=== PATIENT | female | born 1965 | race Caucasian/White ===

== ENCOUNTER → 2024-02-21 13:27 | Outpatient (BNVA) | payer OTHER, SELFPAY | PROVIDERS: PCP Internal Medicine Endocrinology, Diabetes & Metabolism; Visit Provider Physician Assistant ==

== ENCOUNTER 2024-03-08 10:07 | Outpatient (AMB) | payer OTHER, SELFPAY ==
--- NOTE | 2024-03-08 10:36 | A.SPINEOV_ITS ---
Intake Visit Reasons: neck pain/down to arm/does not feels her fingers Intake Note: Ms. 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 HPI: This 58-year-old female suffering from progressive hand dexterity loss, numbness of her hands, balance problems, leg spasms, neck pain and bilateral arm pain with the right side is more affected than the left side. I have seen this patient previously had my practice at [facility] in 2021 and recommended a two-level anterior diskectomy and fusion to decompress her spinal cord. She was unable to undergo surgery at that time due to social circumstances. She comes back with progressive symptoms as mentioned above. Her MRI shows further progression of the spinal cord compression with myelomalacia. Specifically, there is severe spinal cord compression at C3-C6 with myelomalacia at C4-C5. PMH: Hepatitis-C, passive disorder, controlled diabetes type 2 Social history: Nonsmoker Physical Exam: Pleasant female. Neurological exam displays signs of cervical myelopathy with bilateral Veena reflexes. Proximal leg weakness grade 4/5 and a positive Romberg. In addition there sensory deficits of bilateral hands and dexterity loss. Radiological Studies: The findings of MRI cervical spine done at [facility] were discussed in the history. Impression/Plan: This 58-year-old female is suffering from progressive cervical myelopathy due to severe spinal stenosis at C3-4, C4-5 and C5-C6 with mye lomalacia at C4-C5. The quality of the last MRI at [facility] is poor and affected by motion artifacts. Therefore I would like to repeat an MRI of the cervical spine to make a final determination how many levels need to be addressed to decompress the spinal cord. For now, it looks like she needs a 3 level anterior diskectomy and fusion. I will see the patient after the MRI is done. Thank you for allowing me to participate in your patients care. total time spent was 50 minutes in counseling ,coordination of plan, personal review of imaging, surgical decision making and subsequent plan Bravo Edwards MD, PhD Spine Fellowship Trained Neurosurgeon Director, [facility] (2) Cervical myelopathy with cervical radiculopathy: Code(s): G95.9 - Disease of spinal cord, unspecified; M54.12 - Radiculopathy, cervical region Category: Medical Plan: e Plan e Orders: Orders MR cervical spine wo con Today G95.9 - Disease of spinal cord, unspecified, M47.12 - Other spondylosis with myelopathy, cervical region, M54.12 - Radiculopathy, cervical region Medications: New lorazepam Take 1 tablet 1 hour prior to MRI. 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
== END 2024-03-08 11:03 | disposition home or self-care (01) ==
PROVIDERS: PCP Internal Medicine Endocrinology, Diabetes & Metabolism; Visit Provider Neurological Surgery
DX: M47.12 Other spondylosis with myelopathy, cervical region (principal); G95.9 Disease of spinal cord, unspecified; M54.12 Radiculopathy, cervical region
CPT/HCPCS: 99204

== ENCOUNTER → 2024-03-08 10:07 | Outpatient (BNVA) | payer OTHER, SELFPAY | PROVIDERS: PCP Internal Medicine Endocrinology, Diabetes & Metabolism; Visit Provider Neurological Surgery | DX: M47.12 Other spondylosis with myelopathy, cervical region (principal); G95.9 Disease of spinal cord, unspecified; M54.12 Radiculopathy, cervical region | CPT/HCPCS: 99202 ==

== ENCOUNTER → 2024-04-18 13:16 | Outpatient (BNV) | payer OTHER, SELFPAY | PROVIDERS: PCP Internal Medicine; Visit Provider Internal Medicine | DX: R00.1 Bradycardia, unspecified (principal); R94.31 Abnormal electrocardiogram [ECG] [EKG] | CPT/HCPCS: 93010 ==

== ENCOUNTER → 2024-04-22 05:49 | Day surgery (SDC) | payer OTHER, SELFPAY ==
--- NOTE | 2024-04-18 | ECG_ITS ---
Test Reason : pre op Blood Pressure : / mmHG Vent. Rate : 046 BPM Atrial Rate : 046 BPM P-R Int : 204 ms QRS Dur : 096 ms QT Int : 442 ms P-R-T Axes : 071 053 067 degrees QTc Int : 386 ms Sinus bradycardia Possible Left atrial enlargement T wave abnormality, consider anterior ischemia Abnormal ECG No previous ECGs available Referred By: Darya Lee Electronically Signed By:ANH REAVES
--- OUTSIDE RECORDS SUMMARY | 2024-04-18 09:55 | XMS_ITS ---
Author Organization [facility] Address [address] [place] [address] Care Team Providers Care Loop Cutter Name Role Phone Cheko Chavez MD Primary Care Provider Julienne Cade Unavailable [phone] Allergies Allergen (clinical drug ingredient) Drug/Non Drug Allergy documented on EMR Reaction Allergy Type Onset Date Status Spinal Injection (uncoded) Unknown Allergy Active amoxicillin / clavulanate Augmentin vomiting Drug Allergy Active Vicodin vomiting Drug Allergy Active cefaclor Cefaclor sick Drug Allergy Active codeine Codeine itchy Drug Allergy Active REASON FOR VISIT At Risk Footcare, Painful Nail(s) aggrevated by shoes and causing difficulty standing/walking. Medications Medication SIG (Take, Route, Frequency, Duration) Notes Start Date End Date Status Glycopyrrolate 2 MG as directed Orally Active Extra Depth Orthopedic Shoes (1 Pair) with Customized Heat Molded Multidensity Innersoles (3 Pair) as directed Dx: NIDDM/Polyneuropathy (E11.42), Hammertoe Foot Deformity (M20.41,M20.42), Preulcerative Skin Lesion(s) (L85.1 04/22/2022 Active Lyrica 150 MG 1 capsule Orally Onc e a day Active Suboxone 8.2mg 2 tablets 1x day Active traZODone HCl 100 MG 1 tablet at bedtime Orally Once a day for 30 day(s) Active Ativan 1 MG 1 tablet at bedtime as needed Orally Once a day Active Effexor 350mg Active Famotidine 20 MG 1 tablet at bedtime as needed Orally Once a day for 30 day(s) Active Ammonium Lactate 12 % 1 application to affected area Externally to feet Twice a day for 30 days Active Social History Tobacco Use: Social History Observation Description Date Details (start date - stop date) Current Smoker 05/01/1991 - NA Tobacco Use/Smoking Question Answer Notes Are you a: current smoker When did you start smoking? 05/01/1991 Additional Findings: Tobacco User Light cigarett e smoker ((1-9 cigs/day) Alcohol Screen Question Answer Notes Did you have a drink containing alcohol in the p ast year? No Points 0 Interpretation Negative Tobacco use other than smoking: Question Answer Notes Are you an other tobacco user? No Vital Signs Height 5ft3in in 11/21/2023 Weight 167 lbs 11/21/2023 BMI 29.58 kg/m2 11/21/2023 Blood pressure systolic 120 mm Hg 11/21/19 24 Blood pressure diastolic 80 mm Hg 024 Encounters Encounter Location Date Provider Diagnosis [facility] [address] [id number] 11/21/2023 Julienne Pop Tinea unguium B35.1 and Type 2 diabetes mellitus with polyneuropathy E11.42 Assessments Encounter Date Diagnosis (ICD Code) Assessment Notes Treatment Notes Treatment Clinical Notes Section Notes 11/21/2023 Tinea unguium (ICD-10 - B35.1) 11/21/2023 Type 2 diabetes mellitus with polyneuropathy (ICD-10 - E11.42) Plan Of Treatment Next Appt Details Follow Up: 3 Months, Reason: Provider Name:Julienne rock, 05/29/2024 11:15:00 AM, [address] [place] [address], [id number], Procedure Notes * Category Sub-Category Detail Notes Debride Nail 6-10 Nail debridement Nail debridem ent performed extensively to reduce/remove overall nail length and girth, subungual debris, and necrotic tissue, by manual and electrical means with use of a nail nipper and/or dremel, to more viable healthy nail plate or bed tissue 6-10. Silver nitrate used for any petechial bleeding as necessary. Patient chooses, no pharmaceutical tx (01012) Keratoma Treatment Parring or Cutting o f Benign Hyperkeratotic Lesion(s) 32941 ( More than 4 Lesions ) - The Benign hyperkeratotic lesions, as described above were pared, and/or cut utilizing a sterile 15 blade, tissue nippers, and/or dremel Progress Notes * Shawn TROTTEROB:1964 (58 yo F)Acc No.[id number]:11/21/2023 Progress Note Patient:?Perla Trotter Provider:?Julienne Pop DPM :1965???Age:58 Y???Sex:Female D ate:11/21/2023 Address:[address] [place] [address], [place] Pcp:Cheko Chavez MD Subjective: * Chief Complaints: * ???At Risk FootcarePainful N ail(s) aggrevated by shoes and causing difficulty standing/walking. * HPI: ???At Risk footcare:?Pt States Last PCP Visit:?Date?11/20/2023 * ROS:?General/Constitutional:?Nausea?denies, denies, denies.?Vomiting?denies, denies, denies.?Hunger Thirst?denies, denies, denies.?Loss appetite?denies, denies, denies.?Chills?denies, denies, denies.?Fatigue?denies, denies, denies.?Fever?denies, denies, denies.?Night Sweats?denies, denies, denies.?Unexplained weight loss?denies, denies, denies.?Unexplained weight gain?denies, denies, denies.?HEENTM:?Dentures?admits, admits, admits.?Dizziness?admits, admits, admits.?Glasses/contacts?admits, admits, admits.?Retinopathy?denies, denies, denies.?Blurred/double vision?denies, denies, denies.?TMJ?denies, denies, denies.?Discharge/drainage?denies, denies, denies.?Implants?denies, denies, denies.?Sore throat?denies, denies, denies.?Dental implants?admits, admits, admits.?Hard of hearing ?denies, denies, denies.?Difficulty chewing/swallowing/speaking denies, denies, denies.?Nose bleeds?denies, denies, denies.?Sore mouth?denies, denies, denies.?Respiratory:?On Oxygen?denies, denies, denies.?Pneumonia/pleurisy?denies, denies, denies.?Bronchitis?denies, denies, denies.?Emphysema?denies, denies, denies.?Coughing?denies, denies, denies.?Cough blood?denies, denies, denies.?Shortness of breath?denies, denies, denies.?Wheezing?denies, denies, denies.?Cardiovascular:?Pacemaker?denies, denies, denies.?MVP?denies, denies, denies.?WPW?denies, denies, denies.?CHF?denies, denies, denies.?Heart attack?denies, denies, denies.?Septal defect?denies, denies, denies.?Rapid beat denies, denies, denies.?Chest pain ?denies, denies, denies.?Atrial Fib.?denies, denies, denies.?Murmur/Palpitations?denies, denies, denies.?Gastrointestinal:?Hemorrhoids?denies, denies, denies.?Stomach/Abdominal pain?denies, denies, denies.?Dark blood stool?denies, denies, denies.?Irritable bowel ?denies, denies, denies.?Constipation?denies, denies, denies.?Diarrhea?denies, denies, denies.?Hematology:?Swelling?denies, denies, denies.?Clots?denies, denies, denies.?Varicose Veins?denies, denies, denies.?Bruising?admits, admits, admits.?Bleeding problem?denies, denies, denies.?Genitourinary:?Blood urine?denies, denies, denies.?Frequent/Painfu/urination/bladder control?denies, denies, denies.?Kidney stones?denies, denies, denies.?Infection (UTI)?denies, denies, denies.?Nephropathy?denies, denies, denies. sex trans dis (STD)?denies, denies, denies.?Prostate?denies, denies, denies.?Musculoskeletal:?Hammertoes?denies, denies, denies.?Bunions?denies, denies, denies.?Back Pain?admits, admits, admits.?Muscle Cramps/ Resting?admits, admits, admits.?Muscle cramps / walking?denies, denies, denies.?Generalized aches and pains?admits, admits, admits.?Weakness?denies, denies, denies.?Integ.:?Galvez?denies, denies, denies.?Scars?admits, admits, admits.?Corns/calluses?admits, admits, admits.?Ingrown nails?denies, denies, denies.?Painful nails?denies, denies, denies.?Open Sores?denies, denies, denies.?Rashes?denies, denies, denies.?Neurologic:?Difficulty sleeping?admits, admits, admits.?Brain disorder?denies, denies, denies.?Numbness?admits, admits, admits.?Balance trouble?admits, admits, admits.?Confusion?denies, denies, denies.?Fainting/blackouts?denies, denies, denies.?Tingling?admits, admits, admits.?Tremors?denies, denies, denies.? * Medical History:? * Surgical History:?back surge ry x4 section 09/11/1991mastoidectomy ear tubes Dental Implant 05/2021 * Hospitalization/Major Diagno stic Procedure:?Denies Past Hospitalization * Family History:?Mother: dece ased, kidney/liver disease, diagnosed with Family history of arthritis, Diabetic - NIDDM, Unspecified essential hypertension, Other malignant neoplasm of unspecified site.?Father: .? * Social History:?Tobacco Use:?Tobacco Use/Smoking?Are you a:?current smoker ?When did you start smoking??05/01/1991 ?Additional Findings: Tobacco User?Light cigarette smoker ((1-9 cigs/day) ?Tobacco use other than smoking?Are you an other tobacco user??No ???Drugs/Alcohol:?Drugs?Have you used drugs other than those for medical reasons in the past 12 months??Yes ?Marijuana??Yes Moderately ?Alcohol Screen?Did you have a drink containing alcohol in the past year??No ?Points?0 ?Interpretation?Negative ???Miscellaneous:?Caffeine: yes, 4 cups per day. ?Children: yes, 2. ?no Exercise. ?Marital status: . ?Occupation: Disability. * Medications:?TakingAmmonium Lactate 12 % Cream 1 application to affected area Externally to feet Twice a dayAtivan 1 MG Tablet 1 tablet at bedtime as needed Orally Once a dayEffexor , Notes: 350mgFamotidine 20 MG Tablet 1 tablet at bedtime as needed Orally Once a dayGlycopyrrolate 2 MG Tablet as directed Orally Lyrica 150 MG Capsule 1 capsule Orally Once a daySuboxone , Notes: 8.2mg 2 tablets 1x daytraZODone HCl 100 MG Tablet 1 tablet at bedtime Orally Once a dayExtra Depth Orthopedic Shoes (1 Pair) with Customized Heat Molded Multidensity Innersoles (3 Pair) as directed Dx: NIDDM/Polyneuropathy (E11.42), Hammertoe Foot Deformity (M20.41,M20.42), Preulcerative Skin Lesion(s) (L85.1Medication List reviewed and reconciled with the patientTaking Ammonium Lactate 12 % Cream 1 application to affected area Externally to feet Twice a dayTaking Ativan 1 MG Tablet 1 tablet at bedtime as needed Orally Once a dayTaking Effexor , Notes: 350mgTaking Famotidine 20 MG Tablet 1 tablet at bedtime as needed Orally Once a dayTaking Glycopyrrolate 2 MG Tablet as directed Orally Taking Lyrica 150 MG Capsule 1 capsule Orally Once a dayTaking Suboxone , Notes: 8.2mg 2 tablets 1x dayTaking traZODone HCl 100 MG Tablet 1 tablet at bedtime Orally Once a dayTaking Extra Depth Orthopedic Shoes (1 Pair) with Customized Heat Molded Multidensity Innersoles (3 Pair) as directed Dx: NIDDM/Polyneuropathy (E11.42), Hammertoe Foot Deformity (M20.41,M20.42), Preulcerative Skin Lesion(s) (L85.1Medication List reviewed and reconciled with the patient * Allergies:?Cefaclor: sickCod eine: itchyAugmentin: vomitingVicodin: vomitingSpinal Injectionyes[Allergies Verified] Objective: * Vitals:?Ht: 5ft3in, Wt:167, BMI:29.58, Shoe size: 7.5, BP:120/80 mm Hg, BS: not taken, Ht-cm: 160.02 cm, Wt-k.75 kg. * ???Past Orders: ???Lab:HEMOGLOBIN A1C (GLYCO HEMOGLOBIN) (Order Date - 11/13/2023) (Collection Date - 11/13/2023) ? Value Reference Range ?HEMOGLOBIN A1C (HH) 6.1 * Examination: ???Ophthalmology Referral: ?DIABETES EYE EXAM?Neurological: ?SENSORY:?Neurological exam demonstrates, reduced light touch sensation, reduced sharp/dull discrimination , reduced vibration sensation, in a stocking fashion, B/L, 5.07 monofilament test performed at plantar aspects of 5 varied sites per foot shows sensation, reduced, B/L.?Nails: ?NAILS are:?Elongated, overgrown, dystrophic, lytic, greater than 3mm thick, discolored and friable with crumbly malodorous subungual debris with dull to no pain on palpation due to neuropathy, 1-5 B/L.?Dermatologic: ?SKIN FINDINGS:? Skin exam reveals Keratotic lesion(s) located at TA T1 T2 T5 SUB MTH (s), 1 B/L.? Assessment: * Assessment: 1.?Tinea unguium - B35.1?2.? Type 2 diabetes mellitus with polyneuropathy - E11.42 (Primary)? Plan: * Treatment: * Procedures:?Debride Nail 6-10:?Nail debridement?Nail debridement performed extensively to reduce/remove overall nail length and girth, subungual debris, and necrotic tissue, by manual and electrical means with use of a nail nipper and/or dremel, to more viable healthy nail plate or bed tissue 6-10. Silver nitrate used for any petechial bleeding as necessary. Patient chooses, no pharmaceutical tx (44327).?Keratoma Treatment:?Parring or Cutting of Benign Hyperkeratotic Lesion(s)?91758 ( More than 4 Lesions ) - The Benign hyperkeratotic lesions, as described above were pared, and/or cut utilizing a sterile 15 blade, tissue nippers, and/or dremel.? * Procedure Codes:?57060 DEBRI DE NAIL, 6 OR MORE, Modifiers: XS 90547 TRIM SKIN LESIONS, OVER 4, Modifiers: XS * Follow Up:?3 Months * Images: * Sign off status: Completed true * Provider:?Julienne Pop, DPM Date:? Generated for Lia sigala/Billy/eTransmitting on:?04/18/2024 09:54 AM EST History and Physical Notes * HPI (History of Present Illness) Category Sub-Category Detail Notes Category Not es At Risk footcare Pt States Last PCP Visit: Date: 4 Examination Category Sub-Category Detail Notes Category Not es Neurological SENSORY: Neurological exa m demonstrates, reduced light touch sensation, reduced sharp/dull discrimination , reduced vibration sensation, in a stocking fashion, B/L, 5.07 monofilament test performed at plantar aspects of 5 varied sites per foot shows sensation, reduced, B/L Dermatologic SKIN FINDINGS: Skin exam reveal s Keratotic lesion(s) located at TA T1 T2 T5 SUB MTH (s), 1 B/L Ophthalmology Referral DIABETES EYE EXAM Diabeti c Retinopathy Screening:: No Findings of Diabetic Eye Exam:: no retin opathy Nails NAILS are: Elongated, overg rown, dystrophic, lytic, greater than 3mm thick, discolored and friable with crumbly malodorous subungual debris with dull to no pain on palpation due to neuropathy, 1-5 B/L
--- OUTSIDE RECORDS SUMMARY | 2024-04-18 09:55 | XMS_ITS ---
[facility] Organization [facility] Address [address] [place] [address] Care Team Providers Care Orthodontic Band Maker Name Role Phone Cheko Chavez MD Primary Care Provider Julienne Cade Unavailable [phone] Allergies Allergen (clinical drug ingredient) Drug/Non Drug Allergy documented on EMR Reaction Allergy Type Onset Date Status Spinal Injection (uncoded) Unknown Allergy Active amoxicillin / clavulanate Augmentin vomiting Drug Allergy Active Vicodin vomiting Drug Allergy Active cefaclor Cefaclor sick Drug Allergy Active codeine Codeine itchy Drug Allergy Active REASON FOR VISIT At Risk Footcare, Painful Nail(s) aggrevated by shoes and causing difficulty standing/walking., ToeIrritation Medications Medication SIG (Take, Route, Frequency, Duration) Notes Start Date End Date Status Lyrica 150 MG 1 capsule Orally Once a day Active Extra Depth Orthopedic Shoes (1 Pair) with Customized Heat Molded Multidensity Innersoles (3 Pair) as directed Dx: NIDDM/Polyneuropathy (E11.42), Hammertoe Foot Deformity (M20.41,M20.42), Preulcerative Skin Lesion(s) (L85.1 03/06/2024 Active Extra Depth Orthopedic Shoes (1 Pair) with Customized Heat Molded Multidensity Innersoles (3 Pair) as directed Dx: NIDDM/Polyneuropathy (E11.42), Hammertoe Foot Deformity (M20.41,M20.42), Preulcerative Skin Lesion(s) (L85.1 04/22/2022 Active Suboxone 8.2mg 2 tablets 1x day Active traZODone HCl 100 MG 1 tablet at bedtime Orally Once a day for 30 day(s) Active Ativan 1 MG 1 tablet at bedtime as needed Orally Once a day Not-Taking Effexor 350mg Active Ammonium Lactate 12 % 1 application to affected area Externally to feet Twice a day for 30 days Active Famotidine 20 MG 1 tablet at bedtime as needed Orally Once a day for 30 day(s) Active Glycopyrrolate 2 MG as directed Orally Active Social History Tobacco Use: Social History Observation Description Date Details (start date - stop date) Current Smoker 05/01/1991 - NA Tobacco Use/Smoking Question Answer Notes Are you a: current smoker When did you start smoking? 05/01/1991 Additional Findings: Tobacco User Light cigarett e smoker ((1-9 cigs/day) Tobacco use other than smoking: Question Answer Notes Are you an other tobacco user? No Problems Problem Type SNOMED Code ICD Code Onset Dates Problem Status W/U Status Risk Notes Problem Acquired hammer toe of right foot (7352853352657 105) Other hammer toe(s) (acquired), right foot (M20.41) Active confirmed Problem Acquired hammer toe of left foot (1073003277069 103) Other hammer toe(s) (acquired), left foot (M20.42) Active confirmed Vital Signs Height 5ft3in in 03/06/2024 Weight 161 lbs 03/06/2024 BMI 28.52 kg/m2 03/06/2024 Encounters Encounter Location Date Provider Diagnosis [facility] [address] [address] 03/06/2024 Julienne Pop Type 2 diabetes mellitus with polyneuropathy E11.42 ; Other hammer toe(s) (acquired), right foot M20.41 ; Tinea unguium B35.1 and Other hammer toe(s) (acquired), left foot M20.42 Assessments Encounter Date Diagnosis (ICD Code) Assessment Notes Treatment Notes Treatment Clinical Notes Section Notes 03/06/2024 Type 2 diabetes mellitus with polyneuropathy (ICD-10 - E11.42) 03/06/2024 Other hammer toe(s) (acquired), right foot (ICD-10 - M20.41) Patient Educated with: DIABETIC FOOT CARE INSTRUCTIONS. pdf (DIABETIC FOOT CARE INSTRUCTIONS. pdf) 03/06/2024 Tinea unguium (ICD-10 - B35.1) 03/06/2024 Other hammer toe(s) (acquired), left foot (ICD-10 - M20.42) Plan Of Treatment Medication Medication Name Sig Start Date Stop Date Notes Extra Depth Orthopedic Shoes (1 Pair) with Customized Heat Molded Multidensity Innersoles (3 Pair) as directed Dx: NIDDM/Polyneuropathy (E11.42), Hammertoe Foot Deformity (M20.41,M20.42), Preulcerative Skin Lesion(s) (L85.1 03/06/2024 Treatment Notes Assessment Notes Other hammer toe(s) (acquired), right fo ot Patient Educated with: DIABETIC FOOT CARE INSTRUCTIONS.pdf (DIABETIC FOOT CARE INSTRUCTIONS.pdf) Next Appt Details Follow Up: 3 Months, Reason: Provider Name:Julienne rock, 05/29/2024 11:15:00 AM, [address] [place] [address], [phone], Procedure Notes * Category Sub-Category Detail Notes [...] as necessary. Patient chooses, no pharmaceutical tx (54405) Keratoma Treatment Parring or Cutting o f Benign Hyperkeratotic Lesion(s) 26965 ( More than 4 Lesions ) - The Benign hyperkeratotic lesions, as described above were pared, and/or cut utilizing a sterile 15 blade, tissue nippers, and/or dremel Progress Notes * SERGORehanahyDOB:1964 (58 yo F)Acc No.[id number]:03/06/2024 Progress Note Patient:?Perla Dixon Provider:?Julienne Pop DPM :1965???Age:58 Y???Sex:Female D ate:03/06/2024 Address:[address] [place] [address], [id number] Pcp:Cheko Chavez MD Subjective: * Chief Complaints: * ???At Risk FootcarePainful N ail(s) aggrevated by shoes and causing difficulty standing/walking.Toe Irritation * HPI: ???At Risk footcare:?Pt States Last PCP Visit:?Date?11/20/2023 ???Toe pain:?Location:?B/L feet.?Duration:?several years.?Course:?worse.?Aggravated by:?shoes, any pressure.?Treatments:?change in shoes.? * ROS:?General/Constitutional:?Nausea?denies.?Vomiting?denies.?Hunger Thirst?denies.?Loss appetite?denies.?Chills?denies.?Fatigue?denies.?Fever?denies.?Night Sweats?denies.?Unexplained weight loss?denies.?Unexplained weight gain?denies.?HEENTM:?Dentures?admits.?Dizziness?admits.?Glasses/contacts?admits.?Retinopathy?den ies.?Blurred/double vision?denies.?TMJ?denies.?Discharge/drainage?denies.?Implants?denies.?Sore throat?denies.?Dental implants?admits.?Hard of hearing ?denies.?Difficulty chewing/swallowing/speaking?denies.?Nose bleeds?denies.?Sore mouth?denies.?Respiratory:?On O xygen?denies.?Pneumonia/pleurisy?denies.?Bronchitis?denies.?Emphysema?denies.?Co ughing?denies.?Cough blood?denies.?Shortness of breath?denies.?Wheezing?denies.?Cardiovascular:?Pacemaker?denies.?MVP?denies.?WPW?denies.?CHF?denies.?Heart attack?denies.?Septal defect?denies.?Rapid beat?denies.?Chest pain ?denies.?Atrial Fib.?denies.?Murmur/Palpitations?denies.?Gastrointestinal:?Hemorrhoids?denies.?Stomach/Abdominal pain?denies.?Dark blood stool?denies.?Irritable bowel ?denies.?Constipation?denies.?Diarrhea?denies.?Hematology:?Swelling?denies.?Clots?denies.?Varicose Veins?denies.?Bruising?admits.?Bleeding problem?denies.?Genitourinary:?Blood urine?denies.?Frequent/Painfu/urination/bladder control?denies.?Kidney stones?denies.?Infection (UTI)?denies.?Nephropathy?denies.?sex trans dis (STD)?denies.?Prostate?denies.?Musculoskeletal:?Hammertoes?denies.?Bunions?denies.?Back Pain?admits.?Muscle Cramps/ Resting?admits.?Muscle cramps / walking?denies.?Generalized aches and pains?admits.?Weakness?denies.?Integ.:?Galvez?denies.?Scars?admits.?Corns/calluses?admits.?Ingrown nails?denies.?Painful nails?denies.?Open Sores?denies.?Rashes?denies.?Neurologic:?Difficulty sleeping?admits.?Brain disorder?denies.?Numbness?admits.?Balance t rouble?admits.?Confusion?denies.?Fainting/blackouts?denies.?Tingling?admits.?Ned mors?denies.? * Medical History:? * Surgical History:?back surge [...] than smoking?Are you an other tobacco user??No ???Miscellaneous:?Caffeine: yes, 4 cups per day. ?Children: yes, 2. ?no Exercise. ?Marital status: . ?Occupation: Disability. * Medications:?TakingAmmonium Lactate 12 % Cream 1 application to affected area Externally to feet Twice a dayEffexor , Notes: 350mgFamotidine 20 MG [...] Hammertoe Foot Deformity (M20.41,M20.42), Preulcerative Skin Lesion(s) (L85.1Taking Ammonium Lactate 12 % Cream 1 application to affected area Externally to feet Twice a dayTaking Effexor , Notes: 350mgTaking Famotidine [...] Hammertoe Foot Deformity (M20.41,M20.42), Preulcerative Skin Lesion(s) (L85.1Not- Taking/PRNAtivan 1 MG Tablet 1 tablet at bedtime as needed Orally Once a dayMedication List reviewed and reconciled with the patientNot-Taking/PRN Ativan 1 MG Tablet 1 tablet at bedtime as needed Orally Once a dayMedication List reviewed and reconciled with the patient * Allergies:?Cefaclor: sickCod eine: itchyAugmentin: vomitingVicodin: vomitingSpinal Injectionyes[Allergies Verified] Objective: * Vitals:?Ht: 5ft3in, Wt:161, BMI:28.52, Shoe size: 7.5, BS: not taken, Ht-cm: 160.02 cm, Wt-k.03 kg. * ???Past Orders: ???Lab:HEMOGLOBIN A1C (GLYCO [...] T1 T2 T5 SUB MTH (s), 1 B/L.?Orthopedic: ?MUSCLE STRENGTH:?5/5 all groups in a symmetrical fashion, B/L.?DIGITAL DEFORMITIES:?Digital contracture, PIPJ, 2-5 B/L, incompl-reducible to push-up test, no over, nor underlapping,?there is?evidence of shoe producing skin irritation.?FOOTWEAR:?worn, non-supportive, shoe gear properties exacerbate patient's foot/toe deformity.?General Examination: ?GENERAL APPEARANCE:?Reveals a pleasant, alert, well nourished, well- developed, well hydrated individual, who demonstrates proper attention to hygiene/body habitus, and is in no acute distress, Pt serves as own historian for office visit today.?ORIENTED:?person, place, and time.?FOOT EXAM:?Footwear Evaluation?Vascular: ?DP PULSES(B):?3/4, B/L.?PT PULSES(B):?3/4, B/L.?CAPILLARY FILL TIME:?immediate, all digits, B/L.?TROPHIC CONDITION-TEXTURE/ELASTICITY/TURGOR/HAIR GROWTH(B):?normal, B/L.?TEMPERTURE GRADIENT(C):?normal, warm to cool, proximal to distal, B/L, B/L.? Assessment: * Assessment: 1.?Other hammer toe(s) (acqu ired), right foot - M20.41 (Primary), Chronic problem, Worse (4),Rx Management (4)?2.?Type 2 diabetes mellitus with polyneuropathy - E11.42?3.?Tinea unguium - B35.1?4.?Other hammer toe(s) (acquired), left foot - M20.42, Chronic problem, Worse (4),Rx Management (4)? Plan: * Treatment: * Procedures:?Debride Nail 6-10:?Nail debridement?Nail debridement performed extensively to reduce/remove overall nail length and girth, subungual debris, and necrotic tissue, by manual and electrical means with use of a nail nipper and/or dremel, to more viable healthy nail plate or bed tissue 6-10. Silver nitrate used for any petechial bleeding as necessary. Patient chooses, no pharmaceutical tx (00336).?Keratoma Treatment:?Parring or Cutting of Benign Hyperkeratotic Lesion(s)?61279 ( More than 4 Lesions ) - The Benign hyperkeratotic lesions, as described above were pared, and/or cut utilizing a sterile 15 blade, tissue nippers, and/or dremel.? * Procedure Codes:?88199 DEBRI DE NAIL, 6 OR MORE, Modifiers: XS 88964 TRIM SKIN LESIONS, OVER 4, Modifiers: XS * Preventive Medicine:? ??Counseling:?Discussion:?-14: Office or other outpatient visit for the evaluation and management of an established patient, which required a medically appropriate history and/or examination and MODERATE level of DECISION MAKING for: 1 OR MORE CHRONIC PROBLEM(S) THATS WORSENING, 2 STABLE CHRONIC PROBLEMS, A NEWLY DIAGNOSED PROBLEM WITH UNCERTAIN PROGNOSIS, AN ACUTE COMPLICATED INJURY WITH MULTIPLE TREATMENT OPTIONS, OR AN ACUTE PROBLEM WITH ACCOMPANYING SYSTEMIC SYMPTOMS, THAT POSE(S) A MODERATE RISK OF MORBIDITY. THIS CONDITION MAY ALSO INCLUDE RX DRUG MANAGEMENT, OR A DECISON FOR MINOR SURGERY. The visit on the day of the encounter encompassed interpreting the data and educating the patient as to the nature of their condition, treatment options available according to their individual PMH, meds, allergies, and overall health/living conditions, as well as any potential risks or complications that may occur from a failure to adhere to, and participate in, the recommended course of therapy. The discussion included a complete verbal, and/or written explanation of the examination results, any x-rays taken, the proposed diagnosis, and outline of the treatment plan. A schedule for future care needs was also explained. The patient verbalized an understanding of the instructions at this time and agreed to be an active participant in their treatment. If the patient should think of any questions or concerns after the visit, I have encouraged the patient to call the office.?Digital Surgery:?Digital surgery was discussed with the patient, We elected to try conservative treatment at the present time, due to the patients medical history and increased asssociated post-operative risks.?Digital Treatment:?HT- I explained to the patient the possible etiologies of Hammertoes, including genetics/foot type/shoegear/activity level/exercise routine and the risks/benefits of all the different treatment options for their pain including: No treatment at all, Rest, Ice, New/supportive/wider/deeper Shoegear, Digital Padding/Strapping/Taping/Bracing/Gel protective sleeves, Foot/Ankle AFO Bracing, Stretching exercises, Deep Tissue Massage, Arch support/shoe inserts with splay metatarsal padding, and Custom orthoses. I insisted that any digital devices be removed daily and not worn overnight for safety. The patient is to carefully examine the toes daily for any skin irritation while using any splinting or padding device. The advantages and disadvantages of each option were discussed and the patients questions re: shoegear, padding, custom vs prefabricated inserts, activity level, and consistency in home treatment regimens for optimal success were answered to their verbally confirmed satisfaction.?Shoe Gear Counseling:?SHOE Rx - The patient was counseled in great detail on their muscoloskeletal foot and toe deformities which coincided with the dermatological presentations visualized on exam. We discussed how their deformities put the integrity of their feet at risk for potential pedal complications which makes the accomidative diabetic shoes and cutomizable inserts medically necessary. We discussed the different shoe and insert treatment types and options, as well as the important advantages for adhering to regularly wearing these accomidative devices daily. The patient was made aware of the fact that a failure to abide by these recommedations may be deleterious to their foot health as they are able to prevent many pedal complications such as skin irritation, skin ulceration, infection, and even loss of toe/foot/leg/or life. Time was also spent with the patient dispensing and discussing proper diabetic footcare techniques including daily skin moisturization, daily foot inspection for any interruption in skin integrity including open lesions, or sign of infection such as redness/malodor/drainage/swelling. Also discussed and recommended were procedures regarding daily shoe inspection for the presence of internal foreign bodies as well as any visualized irregular shoe or insert wear. Patient questions re: shoes, inserts, and self foot inspections were answered to their satisfaction as the patient verbally confirmed a full understanding of the above information. A Rx for Extra Depth Orthopedic Shoes with 3 pair of custom heat-molded inserts was dispensed.? * Follow Up:?3 Months * Images: * Sign off status: Completed true * Provider:?Julienne Pop, DPKingston Date:?09/2023 Generated for Lia sigala/Billy/Kelsi on:?04/18/2024 09:54 AM EST History and Physical Notes * HPI (History of Present Illness) Category Sub-Category Detail Notes Category Not es Toe pain Location: B/L feet Duration: several years Course: worse Aggravated by: shoes, any pressure Treatments: change in shoes At Risk footcare Pt States Last PCP [...] T2 T5 SUB MTH (s), 1 B/L Orthopedic FOOTWEAR: worn, non-suppor tive, shoe gear properties exacerbate patient's foot/toe deformity DIGITAL DEFORMITIES: Digital contracture , PIPJ, 2-5 B/L, incompl-reducible to push-up test, no over, nor underlapping, there is evidence of shoe producing skin irritation MUSCLE STRENGTH: 5/5 all groups in a symmetrical fashion, B/L General Examination GENERAL APPEARANCE: Reveals a pleasant, alert, well nourished, well-developed, well hydrated individual, who demonstrates proper attention to hygiene/body habitus, and is in no acute distress, Pt serves as own historian for office visit today FOOT EXAM: Lower Extremity Neurological Exa m performed:: Yes ORIENTED: person, place, and t krista Footwear Evaluation Footwear Evaluation performe d:: Yes Ophthalmology Referral DIABETES EYE EXAM Procedure Perform ed:: Yes ?Date of Exam Performed: 05/01/2023 Findings of Diabetic Eye Exam:: no retin opathy Vascular DP PULSES (B): 3/4, B/L PT PULSES (B): 3/4, B/L CAPILLARY FILL TIME: immediate, all digi ts, B/L TEMPERTURE GRADIENT (C): normal, warm to cool, proximal to distal, B/L, B/L TROPHIC CONDITION-TEXTURE/ELASTICITY/TURGOR/HAIR GROWTH (B): normal, B/L Nails NAILS are: Elongated, overg rown, dystrophic, lytic, greater than 3mm thick, discolored and friable with crumbly malodorous subungual debris with dull to no pain on palpation due to neuropathy, 1-5 B/L
--- OUTSIDE RECORDS SUMMARY | 2024-04-18 09:55 | XMS_ITS ---
Author Organization [facility] Address [address] [place] [address] Care Team Providers Care Health Benefits Specialist Name Role Phone Cheko Chavez MD Primary Care Provider Julienne Cade [phone] REASON FOR VISIT Appt Encounters Encounter Location Date Provider Diagnosis [address] [address] 08/18/2023 Julienne Pop Plan Of Treatment Next Appt Details Provider Name:Julienne rock, 05/29/2024 11:15:00 AM, [address] [place] [address], [phone], Progress Notes * SERGOShawnOB:1964 (58 yo F)Acc No.[id number]:08/18/2023 Patient:?SergoPerla :1965???Age:58 Y???Sex:Female Address: [place], [address] * true * Date:? Generated for Printi ng/Farahatg/eTransmitting on:?04/18/2024 09:55 AM EST
--- OUTSIDE RECORDS SUMMARY | 2024-04-18 09:55 | XMS_ITS | Patient Health Record ---
Author [facility] Address [address] [place] [address] Care Team Providers Care Purchaser [employer] Name Role Phone Cheko Chavez MD Primary Care Provider Julienne Cade Unavailable [phone] Allergies Allergen (clinical drug ingredient) Drug/Non Drug Allergy documented on EMR Reaction Allergy Type Onset Date Status Spinal Injection (uncoded) Unknown Allergy Active amoxicillin / clavulanate Augmentin vomiting Drug Allergy Active Vicodin vomiting Drug Allergy Active cefaclor Cefaclor sick Drug Allergy Active codeine Codeine itchy Drug Allergy Active Results Component Value Reference Range Notes HEMOGLOBIN A1C (GLYCOHEMOGLO BIN) Reviewed date:11/21/2023 09:49:05 AM Interpretation: Performing Lab: Notes/Report: HEMOGLOBIN A1C (HH) 6.1 Reason For Referral No Information Medications Medication SIG (Take, Route, Frequency, Duration) Notes Start Date End Date Status Ativan 1 MG 1 tablet at bedtime as needed Orally Once a day Not-Taking Effexor 350mg Active Ammonium Lactate 12 % 1 application to affected area Externally to feet Twice a day for 30 days Active Famotidine 20 MG 1 tablet at bedtime as needed Orally Once a day for 30 day(s) Active Glycopyrrolate 2 MG as directed Orally Active Lyrica 150 MG 1 capsule Orally Once [...] Once a day for 30 day(s) Active Immunizations Vaccine Route Administration Date Status Comme nts Influenza Unknown 01/17/2023 Administered Social History Tobacco Use: Social History Observation [...] Problem Acquired hammer toe of right foot (485161759877 9105) Other hammer toe(s) (acquired), right foot (M20.41) Active confirmed Problem Acquired hammer toe of left foot (649562058764 9103) Other hammer toe(s) (acquired), left foot (M20.42) Active confirmed Problem [id number] Hammer toe of le ft foot (M20.42) Active confirmed Problem 88227999 Type 2 diabetes mellitus with polyneuropathy (E11.42) Active confirmed Vital Signs Blood pressure diastolic 80 mm Hg 11/21/2023 Height 5ft3in in 03/06/2024 Blood pressure systolic 120 mm Hg 11/21/2023 Weight 161 lbs 03/06/2024 BMI 28.52 kg/m2 03/06/2024 Encounters Encounter [facility] Date [facility] [address] [facility]/25/[facility]23 Julienne Pop Tinea unguium B35.1 and Type 2 diabetes mellitus with polyneuropathy E11.[address] [address] 08/18/2023 uJlienne Pop Tinea unguium B35.1 and Type 2 diabetes mellitus with polyneuropathy E11.[address] [address] 11/21/2023 Julienne Pop Tinea unguium B35.1 and Type 2 diabetes mellitus with polyneuropathy E11.[address] [address] 03/06/2024 Julienne Pop Type 2 diabetes mellitus with polyneuropathy E11.42 ; Other hammer toe(s) (acquired), right foot M20.41 ; Tinea unguium B35.1 and Other hammer toe(s) (acquired), left foot M20.[address] [address] 07/25/2023 Julienne Pop [address] [address] 08/18/2023 Julienne Pop Assessments Encounter Date Diagnosis (ICD Code) Assessment Notes Treatment Notes Treatment Clinical Notes Section Notes 05/25/2023 Tinea unguium (ICD-10 - B35.1) 05/25/2023 Type 2 diabetes mellitus with polyneuropathy (ICD-10 - E11.42) 08/18/2023 Tinea unguium (ICD-10 - B35.1) 11/21/2023 Tinea unguium (ICD-10 - B35.1) 03/06/2024 Other hammer toe(s) (acquired), right foot (ICD-10 - M20.41) Patient Educated with: DIABETIC FOOT CARE INSTRUCTIONS. pdf (DIABETIC FOOT CARE INSTRUCTIONS. pdf) 03/06/2024 Type 2 diabetes mellitus with polyneuropathy (ICD-10 - E11.42) 03/06/2024 Tinea unguium (ICD-10 - B35.1) 11/21/2023 Type 2 diabetes mellitus with polyneuropathy (ICD-10 - E11.42) 08/18/2023 Type 2 diabetes mellitus with polyneuropathy (ICD-10 - E11.42) 03/06/2024 Other hammer toe(s) (acquired), left foot (ICD-10 - M20.42) Plan Of Treatment Next Appt Details Provider Name:Julienne Rock Sandy rock, 05/29/2024 11:15:00 AM, [address] [place], [address], Insurance Providers Payer Name Payer Address Payer Phone Subscriber Number Group Number Insured Name Patient Relationship to Insured Coverage Start Date Coverage End Date [facility] [employer] Claims [address] [place] [id number] Perla Pelaez Self - patient is the insured Medical (General) History Medical History History ICD Code Anxiety Back,Hip,and Knee pain Broken bones Cancer Depression Diabetes mellitus type ll Fibromyalgia Headaches/Migraines Hepatitis Multiple sclerosis Numbness Sciatica chronic sinusitis Warts Measles Mumps Chicken pox Joint implants/screws Plantar fasciitis Neck fusion David daniels Surgical History Surgery Date(Month/Year) back surgery x4 section 09/11/1991 mastoidectomy ear tubes Dental Implant 05/2021
[2024-04-18 12:40] VITALS: BP 101/59; PULSE 56; RESP 20; O2SAT 96; BMI 26.8
--- NOTE | 2024-04-18 12:57 | P.CONAN_ITS ---
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 (Acute) Past Medical History Medical History (Updated 04/18/24 @ 12:30 by Tamie Villalba RN) Hx of radiation therapy History of chemotherapy Arthritis Depression History of headache Cough COVID-19 Habitual snoring History of benign breast biopsy Hx LEEP (loop electrosurgical excision procedure), cervix, Anxiety Back pain History of cervical cancer Opiate dependence Major depressive disorder Insomnia Vocal cord polyp Pulmonary nodule History of heroin abuse Chronic hepatitis B without hepatic coma Morbid obesity Hyperlipidemia Stress incontinence Abnormal brain MRI Gait instability Diabetic neuropathy Diabetes GERD (gastroesophageal reflux disease) Family History Family history of problems with anesthesia: Yes (Mother PONV) Surgical History Surgical History (Updated 04/18/24 @ 12:35 by Tamie Villalba RN) History of placement of ear tubes History of lumbar spinal fusion History of excision of pilonidal cyst Hx of tonsillectomy Hx of mastoidectomy Hx of section Hx of lumbar discectomy History of Problems with Anesthesia: No Social History Social History Are you a primary career resource technician to a significant other at home: No Do you presently have visiting nurse or other home services: No Patient Tobacco Use Status: Current everyday Tobacco user Tobacco use type: Cigarette Cigarettes Per Day: 3 Use of substances other than those prescribed or required for medical reasons: Yes Substance Use Frequency: Occasionally Have you been hit, kicked, punched, or otherwise hurt by someone within the past year? If so, by whom?: No Are you DNR?: No Advance Directives: No Advance Directives Information Provided: No Advance Directives on File: No Recently lost weight without trying: No Eating poorly because of decreased appetite: No Nutrition Risks: No Nutritional Risk Patient : No : No Poor oral hygiene: Yes (implants upper and lower) Meds Allergies Allergy/AdvReac Type Severity Reaction Status Date / Time acetaminophen [From VICODIN] Allergy Unknown N/V Verified 03/08/24 10:39 amoxicillin [From AUGMENTIN] Allergy Unknown N/V/D Verified 03/08/24 10:39 cefaclor [From CECLOR] Allergy Unknown SWELLING Verified 03/08/24 10:39 clavulanic acid Allergy Unknown N/V/D Verified 03/08/24 10:39 [From AUGMENTIN] hydrocodone [From VICODIN] Allergy Unknown N/V Verified 03/08/24 10:39 flurazepam [From Dalmane] Allergy Itching Verified 04/18/24 09:37 nitrofurantoin Allergy Nausea and Verified 04/18/24 09:37 Vomiting Home Medications ?Medication ?Instructions ?Recorded ?Confirmed ?Last Taken ?Type acetaminophen 500 mg tablet 1,000 mg PO Q6H PRN Pain 04/18/24 04/18/24 Unknown History buprenorphine 8 mg-naloxone 2 mg 2 tab sublingual DAILY 04/18/24 04/18/24 Unknown History sublingual tablet diclofenac sodium 1 % topical gel 2 g topical QID PRN Pain 04/18/24 04/18/24 Unk nown History famotidine 20 mg tablet 20 mg PO DAILY 04/18/24 04/18/24 Unknown History glycopyrrolate 2 mg tablet 2 mg PO TID 04/18/24 04/18/24 Unknown History (Fiorella Boggs) lidocaine 5 % topical patch 1 patch topical DAILY 04/18/24 04/18/24 Unknown History loperamide 2 mg capsule 2 mg PO QID PRN diarrhea 04/18/24 04/18/24 Unknown History nystatin 100,000 unit/gram topical 100,000 unit topical QID PRN Rash 04/18/24 04/18/24 Unknown History powder (Nystop) pregabalin 150 mg capsule 150 mg PO TID 04/18/24 04/18/24 Unknown History sumatriptan succinate 50 mg tablet 50 mg PO Q2-4H PRN Headache 04/18/24 04/18/24 Unknown History trazodone 100 mg tablet 100 mg PO BEDTIME 04/18/24 04/18/24 Unknown History venlafaxine 150 mg 300 mg PO QAM 04/18/24 04/18/24 Unknown History capsule,extended release 24 hr Exam Height,Weight and Vital Signs: Height 5 ft 4 in Weight 70.76 kg Last Vital Signs Pulse 56 04/18/24 12:40 Resp 20 04/18/24 12:40 BP 101/59 L 04/18/24 12:40 Pulse Ox 96 04/18/24 12:40 O2 Del Method Room Air 04/18/24 12:40 Pertinent Lab Results Pertinent Lab Results: Lab Results 04/18/24 Range/Units 13:33 WBC 6.4 (4.8-10.8) X10*3/uL RBC 4.20 (4.20-5.50) X10*6/uL Hgb 12.3 (12.0-16.0) g/dl Hct 37.2 (37.0-47.0) % MCV 88.6 (80.0-98.0) fL MCH 29.3 (27.0-33.0) pg MCHC 33.1 (31.0-35.0) g/dl RDW 13.5 (11.0-16.0) % Plt Count 200 (160-400) X10*3/uL MPV 9.9 (9.4-12.3) fL Absolute Nucleated RBC 0.000 (0.0-0.012) X10*3/uL Nucleated RBC % (auto) 0.0 (0.0-0.2) /100WBC Sodium 143 (135-145) mmol/L Potassium 4.2 (3.3-5.1) mmol/L Chloride 106 (96-108) mmol/L Carbon Dioxide 33 H (22-29) mmol/L Anion Gap 8 L (12-20) BUN 11 (9-16) mg/dL Creatinine 0.78 (0.5-1.4) mg/dL Estim Creat Clear Calc 73.0 Estimated GFR > 60 Random Glucose 124 H (60-115) mg/dL Estimat Average Glucose 114 mg/dL Hemoglobin A1c % 5.6 (<6.0) % Calcium 9.7 (8.4-10.2) mg/dL Total Bilirubin 0.3 (0.0-1.0) mg/dL AST 33 H (5-31) U/L ALT 18 (0-31) U/L Alkaline Phosphatase 50 (39-117) U/L Total Protein 7.4 (6.5-8.0) g/dL Albumin 4.3 (3.5-5.0) g/dL Narrative Narrative: EKG 03/2024 Vent. Rate : 046 BPM Atrial Rate : 046 BPM P-R Int : 204 ms QRS Dur : 096 ms QT Int : 442 ms P-R-T Axes : 071 053 067 degrees QTc Int : 386 ms Sinus bradycardia Possible Left atrial enlargement T wave abnormality, consider anterior ischemia Abnormal ECG No previous ECGs available Airway Mallampati Class: II TM Dist: >3cm Neck ROM: Limited Loose/Missing/Broken Teeth: Yes (Magnetic implants) Heart: RRR Lungs: CTAB Assessment and Plan Assessment Anesthesia Assessment: Anesthesia Plan Discussed, Smoking Cess. Discussed and PAT Visit Final Anesthetic Review Family History of Problems with Anesthesia: Yes (Mother PONV) History of Problems with Anesthesia: No
[2024-04-18 14:05] LABS: Hematocrit 37.2 % (37.0-47.0); Hemoglobin 12.3 g/dl (12.0-16.0); Mean Corpuscular HGB Conc 33.1 g/dl (31.0-35.0); Mean Corpuscular Hemoglobin 29.3 pg (27.0-33.0); Mean Corpuscular Volume 88.6 fL (80.0-98.0); Mean Platelet Volume 9.9 fL (9.4-12.3); Platelet Count 200 X10*3/uL (160-400); Red Cell Distribution Width 13.5 % (11.0-16.0); White Blood Count 6.4 X10*3/uL (4.8-10.8)
[2024-04-18 14:13] LABS: Estimated Average Glucose 114 mg/dL; Hemoglobin A1C 115.8817 umol/L; Hemoglobin A1c % 5.6 % (<6.0); Total Hemoglobin (HGBA1C) 3114.2934 umol/L
[2024-04-18 14:32] LABS: Alanine Aminotransferase 18 U/L (0-31); Albumin Level 4.3 g/dL (3.5-5.0); Alkaline Phosphatase 50 U/L (39-117); Anion Gap 8 (12-20); Aspartate Amino Transferase 33 U/L (5-31); Bilirubin Total 0.3 mg/dL (0.0-1.0); Blood Urea Nitrogen 11 mg/dL (9-16); Calcium 9.7 mg/dL (8.4-10.2); Carbon Dioxide 33 mmol/L (22-29); Chloride 106 mmol/L (96-108); Estimated Glomerular Filt Rate > 60; Glucose Random 124 mg/dL (60-115); Potassium 4.2 mmol/L (3.3-5.1); Sodium 143 mmol/L (135-145); Total Protein 7.4 g/dL (6.5-8.0)
[2024-04-22 06:16] VITALS: BMI 26.9
[2024-04-22] MEDS: Gabapentin 300 MG CAPSULE PO (06:41)
[2024-04-22] MEDS: methocarbamoL 750 MG TABLET PO (06:41)
[2024-04-22] MEDS: Lactated Ringers 1,000 ML 100 ML IVCONT (06:42)
--- NOTE | 2024-04-22 06:55 | MHC.SHP ---
Pre-Procedural Eval Section A - 24 Hr Update-Section A only Date of Service: 04/22/24 The patient is an INPATIENT: No Section B - Complete if H&P > 30 days Chief Complaint: Other spondylosis with myelopathy, cervical region Allergies: Allergies Allergy/AdvReac Type Severity Reaction Status Date / Time acetaminophen [From VICODIN] Allergy Unknown N/V Verified 03/08/24 10:39 amoxicillin [From AUGMENTIN] Allergy Unknown N/V/D Verified 03/08/24 10:39 cefaclor [From CECLOR] Allergy Unknown SWELLING Verified 03/08/24 10:39 clavulanic acid Allergy Unknown N/V/D Verified 03/08/24 10:39 [From AUGMENTIN] hydrocodone [From VICODIN] Allergy Unknown N/V Verified 03/08/24 10:39 flurazepam [From Dalmane] Allergy Itching Verified 04/18/24 09:37 nitrofurantoin Allergy Nausea and Verified 04/18/24 09:37 Vomiting Review of Systems Sugical H&P ROS: Negative: Constitution, Cardiovascular, Respiratory, Neurological, Psychiatric, Hem-Onc, Allergic/Immunologic, Gastrointestinal, Genitourinary, Musculoskeletal, Integumentary, Endocrine and Eyes/Ears/Nose/Throat Exam Surgical H&P Exam: Normal: HEENT, Normal: Heart, Normal: Lungs, Normal: Extremities, Normal: Abdomen and Normal: Skin and Significant Findings: Neurological (hyperrefelexia, dexterity loss) Plan I have reviewed the history and physical and performed a pertinent physical examination on my patient. No changes have occurred unless specified. C3-4, C4-5 anterior discectomy and fusion Time Spent With Patient Time: Total time managing care of this patient today ____ minutes.
[2024-04-22] MEDS: vancomycin HCL 1,000 MG in 0.9 % Sodium Chloride 250 ML 270 MG IV (06:56)
[2024-04-22 07:15] VITALS: BP 93/39; PULSE 48; RESP 14; TEMP 36.7; O2SAT 93
[2024-04-22 07:16] LABS: Glucose, Whole Blood 94 mg/dL (60-115)
--- NOTE | 2024-04-22 07:52 | PC.NURSE ---
Bedside consult w/Dr. Conti/Dr. Khan/ROXY Cardoso. VS P 48, BP 93/56. Pt asymptomatic. 1000ml of LR administered. NO iprovement in VS. Pt stable resting in be. Vanco d/c'd 100ml administered. Pt to f/u with PCP and Dr. Edwards. Refused ED evaluation. Pt discharged from [facility]. Stable.
--- NOTE | 2024-04-22 10:01 | PM.ANESPN ---
Subjective Subjective Date of Service: 04/22/24 Patient reports: other (HR low 40's and SBP 80-low 90's, concern about significant bradycardia and hypotension intraoperatively) Physical Exam Vital Signs: Vital Signs: Last Vital Signs Temp 98.0 F 04/22/24 07:15 Pulse 48 L 04/22/24 07:15 Resp 14 04/22/24 07:15 BP 93/39 L 04/22/24 07:15 Pulse Ox 93 04/22/24 07:15 O2 Del Method Room Air 04/22/24 07:15 BMI result Body Mass Index 26.9 Progress Note: A&P Assessment and plan Plan pt received 1 liter of LR without significant change in vitals, pt states she's very anxious. appears relaxed and falling asleep when away from bedside. surgeon also concerned about perfusion of the spinal cord with low BP and HR. plan--- stop lyrica, taper off suboxone and recheck vitals in office on Monday to see if that makes a diffference Time Spent With Patient Time: Total time managing care of this patient today ___15_ minutes. Procedures Date of Service Date of Service: 04/22/24
== END ==
LOC: HO.SSS 05:49
PROVIDERS: Nurse Practitioner; PCP Internal Medicine; Visit Provider Neurological Surgery
DX: M47.12 Other spondylosis with myelopathy, cervical region (principal); Z53.09 Procedure and treatment not carried out because of other contraindication; G95.9 Disease of spinal cord, unspecified; I95.9 Hypotension, unspecified; E11.9 Type 2 diabetes mellitus without complications
CPT/HCPCS: 36415; 80053; 82947; 83036; 85027; 93005; J1100; J1171; J1885; J2003; J2250; J2405; J2704; J3010; J3370

== ENCOUNTER 2024-04-26 08:46 | Outpatient (AMB) | payer OTHER, SELFPAY ==
--- NOTE | 2024-04-26 08:48 | A.SPINEOV_ITS ---
Intake Visit Reasons: BP check Intake Note: Ms. Dixon is here today for a BP Check. Manual Plate Filler Required: No Allergies acetaminophen [From VICODIN] Allergy (Unknown, Verified 03/08/24 10:39) N/V amoxicillin [From AUGMENTIN] Allergy (Unknown, Verified 03/08/24 10:39) N/V/D cefaclor [From CECLOR] Allergy (Unknown, Verified 03/08/24 10:39) SWELLING clavulanic acid [From AUGMENTIN] Allergy (Unknown, Verified 03/08/24 10:39) N/V/D hydrocodone [From VICODIN] Allergy (Unknown, Verified 03/08/24 10:39) N/V flurazepam [From Dalmane] Allergy (Verified 04/18/24 09:37) Itching nitrofurantoin Allergy (Verified 04/18/24 09:37) Nausea and Vomiting Assessment & Plan Assessment & Plan (1) Cervical myelopathy with cervical radiculopathy: Code(s): G95.9 - Disease of spinal cord, unspecified; M54.12 - Radiculopathy, cervical region Category: Medical Plan Mrs Dixon is today. Her surgery was canceled few days ago because of low blood pressure into the 80s systolic only. There was concern for induction and possible hypotension and spinal shock putting her at risk for cord infarct. After review of her medications we asked the patient to discontinue her Lyrica for 24 hours and her Suboxone so we could reassess her blood pressure in a more natural state and something more predictable for surgery. Unfortunately she took her Lyrica and her Suboxone again this morning. Just 1 Lyrica this morning instead of the usual to that she will take. Her blood pressure was 100/60 in a seated position. I reinforced the need for her to be compliant with these requests as they are for her safety. I will review with Dr. Edwards, how many days he would like her to stop the Suboxone for surgery, but I did tell her to stop her Lyrica 24 hours prior to surgery is that seem to be 1 of the things that was causing her to have hypotension. I will update the anesthesia preoperative team as well. We are tentatively trying to get the surgery booked again for May 07 because of her severe spinal cord compression. Once I have a final plan I will call her back. Total amount of time spent in this visit was 20 minutes in discussion of symptoms, blood pressure results and subsequent plan of care Walker Edwards MD,PhD [facility] Coding Level of Care Code Est Pt Level 3 (24378) Diagnoses Cervical myelopathy with cervical radiculopathy G95.9; M54.12
== END 2024-04-26 11:06 | disposition home or self-care (01) ==
PROVIDERS: PCP Internal Medicine; Visit Provider Physician Assistant
DX: G95.9 Disease of spinal cord, unspecified (principal); M54.12 Radiculopathy, cervical region
CPT/HCPCS: 99213

== ENCOUNTER → 2024-04-26 08:46 | Outpatient (BNVA) | payer OTHER, SELFPAY | PROVIDERS: PCP Internal Medicine; Visit Provider Physician Assistant | DX: G95.9 Disease of spinal cord, unspecified (principal); M54.12 Radiculopathy, cervical region | CPT/HCPCS: 99212 ==

== ENCOUNTER 2024-05-08 05:44 | Day surgery (SDC) | payer OTHER, SELFPAY ==
--- OUTSIDE RECORDS SUMMARY | 2024-05-02 12:16 | XMS_ITS ---
Author Organization [facility] Address [address] [place] [address] Care Team Providers Care Lang Interpreter Name Role Phone Cheko Chavez MD Primary Care Provider Julienne Cade Unavailable [phone] Allergies Allergen (clinical drug ingredient) Drug/Non Drug [...] Problem Acquired hammer toe of right foot (0630337276388 105) Other hammer toe(s) (acquired), right foot (M20.41) Active confirmed Problem Acquired hammer toe of left foot (9685345003306 103) Other hammer toe(s) (acquired), left foot (M20.42) Active confirmed Vital Signs Height 5ft3in in 03/06/2024 Weight 161 lbs 03/06/2024 BMI 28.52 kg/m2 03/06/2024 Encounters Encounter Location Date Provider Diagnosis [facility] [address] [address] 03/06/2024 Julienne Pop Type 2 diabetes mellitus [...] Reason: Provider Name:Julienne rock, 05/29/2024 11:15:00 AM, [address] [place] [address], [phone], Procedure Notes * Category Sub-Category Detail Notes [...] as necessary. Patient chooses, no pharmaceutical tx (04410) Keratoma Treatment Parring or Cutting o f Benign Hyperkeratotic Lesion(s) 58852 ( More than 4 Lesions ) - The Benign hyperkeratotic lesions, as described above were pared, and/or cut utilizing a sterile 15 blade, tissue nippers, and/or dremel Progress Notes * SERGORehanahyDOB:1964 (58 yo F)Acc No.[id number]:03/06/2024 Progress Note Patient:?Perla Dixon Provider:?Julienne Pop DPM :1965???Age:58 Y???Sex:Female D ate:03/06/2024 Address:[address] [place] [address], [id number] Pcp:Cheko Chavez MD Subjective: * Chief Complaints: [...] as necessary. Patient chooses, no pharmaceutical tx (84368).?Keratoma Treatment:?Parring or Cutting of Benign Hyperkeratotic Lesion(s)?35188 ( More than 4 Lesions ) - The Benign hyperkeratotic lesions, as described above were pared, and/or cut utilizing a sterile 15 blade, tissue nippers, and/or dremel.? * Procedure Codes:?36584 DEBRI DE NAIL, 6 OR MORE, Modifiers: XS 00734 TRIM SKIN LESIONS, OVER 4, Modifiers: XS [...] Pop, DPKingston Date:?09/2023 Generated for Lia sigala/Billy/Kelsi on:?05/02/2024 12:16 PM EST History and Physical Notes * HPI [...]
--- OUTSIDE RECORDS SUMMARY | 2024-05-02 12:17 | XMS_ITS | Patient Health Record ---
Author Organization [facility] Address [address] [place] [address] Care Team Providers Care Verification Manager Name Role Phone Cheko Chavez MD Primary Care Provider Julienne Cade Unavailable [phone] Allergies Allergen (clinical drug ingredient) Drug/Non Drug [...] Problem Acquired hammer toe of right foot (281800480029 9105) Other hammer toe(s) (acquired), right foot (M20.41) Active confirmed Problem Acquired hammer toe of left foot (146666766281 9103) Other hammer toe(s) (acquired), left foot (M20.42) Active confirmed Problem [id number] Hammer toe of le ft foot (M20.42) Active confirmed Problem [id number] Type 2 diabetes mellitus with polyneuropathy (E11.42) Active confirmed Vital Signs Blood pressure diastolic 80 mm Hg 11/21/2023 Height 5ft3in in 03/06/2024 Blood pressure systolic 120 mm Hg 11/21/2023 Weight 161 lbs 03/06/2024 BMI 28.52 kg/m2 03/06/2024 Encounters Encounter [facility] Date [facility] [address] 05/25/2023 Julienne Pop Tinea unguium B35.1 and Type 2 diabetes mellitus with polyneuropathy E11.[address] [address] 08/18/2023 Julienne Pop Tinea unguium B35.1 and Type 2 diabetes mellitus with polyneuropathy E11.[address] [address] 11/21/2023 Julienne Pop Tinea unguium B35.1 and Type 2 diabetes mellitus with polyneuropathy E11.[address] [address] 03/06/2024 Julienne Pop Type 2 diabetes mellitus with polyneuropathy E11.42 ; Other hammer toe(s) (acquired), right foot M20.41 ; Tinea unguium B35.1 and Other hammer toe(s) (acquired), left foot M20.[address] [address] 07/25/2023 Julienne Pop [address] [address] 08/18/2023 Julienne Pop Assessments Encounter Date Diagnosis [...] Rock Sandy rock, 05/29/2024 11:15:00 AM, [address] [place], [address], Insurance Providers Payer Name Payer Address Payer Phone Subscriber Number Group Number Insured Name Patient Relationship to Insured Coverage Start Date Coverage End Date [facility] [employer] Claims [address] [place] [id number] Perla Pelaez Self - patient is the [...]
--- OUTSIDE RECORDS SUMMARY | 2024-05-02 12:17 | XMS_ITS ---
Author Organization [facility] Address [address] [facility] [place] [address] Care Team Providers Care Head Mixer Name Role Phone Cheko Chavez MD Primary Care Provider Julienne Cade Unavailable [phone] Allergies Allergen (clinical drug ingredient) Drug/Non Drug [...] 024 Encounters Encounter Location Date Provider Diagnosis [facility] [address] [address] 11/21/2023 Julienne Pop Tinea unguium B35.1 and Type 2 diabetes mellitus with polyneuropathy E11.42 Assessments Encounter Date Diagnosis (ICD Code) Assessment Notes Treatment Notes Treatment Clinical Notes Section Notes 11/21/2023 Tinea unguium (ICD-10 - B35.1) 11/21/2023 Type 2 diabetes mellitus with polyneuropathy (ICD-10 - E11.42) Plan Of Treatment Next Appt Details Follow Up: 3 Months, Reason: Provider Name:Julienne rock, 05/29/2024 11:15:00 AM, [address] [place] [address], [address], Procedure Notes * Category Sub-Category Detail Notes [...] as necessary. Patient chooses, no pharmaceutical tx (70240) Keratoma Treatment Parring or Cutting o f Benign Hyperkeratotic Lesion(s) 82073 ( More than 4 Lesions ) - The Benign hyperkeratotic lesions, as described above were pared, and/or cut utilizing a sterile 15 blade, tissue nippers, and/or dremel Progress Notes * Shawn TROTTEROB:1964 (58 yo F)Acc No.[id number]:11/21/2023 Progress Note Patient:?Perla Trotter Provider:?Julienne Pop DPM :1965???Age:58 Y???Sex:Female D ate:11/21/2023 Address:[address] [place] [address], [place] Pcp:Cheko Chavez MD Subjective: * Chief Complaints: [...] as necessary. Patient chooses, no pharmaceutical tx (40012).?Keratoma Treatment:?Parring or Cutting of Benign Hyperkeratotic Lesion(s)?64558 ( More than 4 Lesions ) - The Benign hyperkeratotic lesions, as described above were pared, and/or cut utilizing a sterile 15 blade, tissue nippers, and/or dremel.? * Procedure Codes:?75630 DEBRI DE NAIL, 6 OR MORE, Modifiers: XS 16596 TRIM SKIN LESIONS, OVER 4, Modifiers: XS * Follow Up:?3 Months * Images: * Sign off status: Completed true * Provider:?Julienne Pop, DPM Date:? Generated for Lia sigala/Billy/eTransmitting on:?05/02/2024 12:16 PM EST History and Physical [...]
--- OUTSIDE RECORDS SUMMARY | 2024-05-02 12:17 | XMS_ITS ---
Author Organization [facility] Address [address] [place] [address] Care Team Providers Care Vision Mixer Name Role Phone Cheko Chavez MD Primary Care Provider Julienne Cade [phone] REASON FOR VISIT Appt Encounters Encounter Location Date Provider Diagnosis [address] [address] 08/18/2023 Julienne Pop Plan Of Treatment Next Appt Details Provider Name:Julienne rock, 05/29/2024 11:15:00 AM, [address] [place] [address], [phone], Progress Notes * SERGOShawnOB:1964 (58 yo F)Acc No.[id number]:08/18/2023 Patient:?SergoPerla :1965???Age:58 Y???Sex:Female Address: [place], [address] * true * Date:? Generated for Printi jovon/Billy/eTransmitting on:?05/02/2024 12:16 PM EST
--- NOTE | 2024-05-06 14:19 | HO.ANESPROP2 ---
Documented by User: Darya Lee NP 05/06/24 14:24 HPI - Anesthesia Eval Consult details Narrative: 59yo F for C3-4, C4-5 ACDF (Anterior Cervical Discectomy & Fusion) Previously cx'd DOS for low BP/HR. pt received 1 liter of LR without significant change in vitals, pt states she's very anxious. appears relaxed and falling asleep when away from bedside. surgeon also concerned about perfusion of the spinal cord with low BP and HR. plan--- stop lyrica, taper off suboxone and recheck vitals in office on Monday to see if that makes a diffference F/u'd with spine center for BP/HR check: 100/60. Pt had not held meds as instructed. 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 (Acute) Past Medical History Medical History Hx of radiation therapy History of chemotherapy Arthritis Depression History of headache Cough COVID-19 Habitual snoring History of benign breast biopsy Hx LEEP (loop electrosurgical excision procedure), cervix, Anxiety Back pain History of cervical cancer Opiate dependence Major depressive disorder Insomnia Vocal cord polyp Pulmonary nodule History of heroin abuse Chronic hepatitis B without hepatic coma Morbid obesity Hyperlipidemia Stress incontinence Abnormal brain MRI Gait instability Diabetic neuropathy Diabetes GERD (gastroesophageal reflux disease) Family History Family history of problems with anesthesia: Yes (Mother PONV) Surgical History Surgical History History of placement of ear tubes History of lumbar spinal fusion History of excision of pilonidal cyst Hx of tonsillectomy Hx of mastoidectomy Hx of section Hx of lumbar discectomy History of Problems with Anesthesia: No Social History Social History Are you a primary urgent care physician to a significant other at home: No Do you presently have visiting nurse or other home services: No Comment: due to pain in back all the way down to legs, hunched over with pain also Patient Tobacco Use Status: Current someday Tobacco user Tobacco use type: Cigarette Cigarettes Per Day: 3 Use of substances other than those prescribed or required for medical reasons: Yes Substance Use Type Other:: smoked-last used 05/07/24 Substance Use Frequency: Occasionally Are you DNR?: No Advance Directives: No Advance Directives Information Provided: Yes Meds Allergies Allergy/AdvReac Type Severity Reaction Status Date / Time amoxicillin [From AUGMENTIN] Allergy Unknown N/V/D Verified 05/08/24 06:11 cefaclor [From CECLOR] Allergy Unknown SWELLING Verified 05/08/24 06:11 clavulanic acid Allergy Unknown N/V/D Verified 05/08/24 06:11 [From AUGMENTIN] hydrocodone [From VICODIN] Allergy Unknown N/V Verified 05/08/24 06:11 flurazepam [From Dalmane] Allergy Itching Verified 05/08/24 06:11 nitrofurantoin Allergy Nausea and Verified 05/08/24 06:11 Vomiting Home Medications ?Medication ?Instructions ?Recorded ?Confirmed ?Last Taken ?Type acetaminophen 500 mg tablet 1,000 mg PO Q6H PRN Pain 04/18/24 05/08/24 Unknown History buprenorphine 8 mg-naloxone 2 mg 2 tab sublingual DAILY 04/18/24 05/08/24 05/05/24 History sublingual tablet diclofenac sodium 1 % topical gel 2 g topical QID PRN Pain 04/18/24 05/08/24 Unknown History famotidine 20 mg tablet 20 mg PO DAILY 04/18/24 05/08/24 Unknown History glycopyrrolate 2 mg tablet 2 mg PO TID 04/18/24 05/08/24 Unknown History (Fiorella Boggs) lidocaine 5 % topical patch 1 patch topical DAILY 04/18/24 05/08/24 Unknown History loperamide 2 mg capsule 2 mg PO QID PRN diarrhea 04/18/24 05/08/24 Unknown History nystatin 100,000 unit/gram topical 100,000 unit topical QID PRN Rash 04/18/24 05/08/24 Unknown History powder (Nystop) pregabalin 150 mg capsule 150 mg PO TID 04/18/24 05/08/24 04/22/24 History sumatriptan succinate 50 mg tablet 50 mg PO Q2-4H PRN Headache 04/18/24 05/08/24 Unknown History trazodone 100 mg tablet 100 mg PO BEDTIME 04/18/24 05/08/24 Unknown History venlafaxine 150 mg 300 mg PO QAM 04/18/24 05/08/24 04/22/24 History capsule,extended release 24 hr Exam Height,Weight and Vital Signs: Height 5 ft 4 in Weight 70.76 kg Pertinent Lab Results Pertinent Lab Results: Lab Results 04/18/24 Range/Units 13:33 WBC 6.4 (4.8-10.8) X10*3/uL RBC 4.20 (4.20-5.50) X10*6/uL Hgb 12.3 (12.0-16.0) g/dl Hct 37.2 (37.0-47.0) % MCV 88.6 (80.0-98.0) fL MCH 29.3 (27.0-33.0) pg MCHC 33.1 (31.0-35.0) g/dl RDW 13.5 (11.0-16.0) % Plt Count 200 (160-400) X10*3/uL MPV 9.9 (9.4-12.3) fL Absolute Nucleated RBC 0.000 (0.0-0.012) X10*3/uL Nucleated RBC % (auto) 0.0 (0.0-0.2) /100WBC Sodium 143 (135-145) mmol/L Potassium 4.2 (3.3-5.1) mmol/L Chloride 106 (96-108) mmol/L Carbon Dioxide 33 H (22-29) mmol/L Anion Gap 8 L (12-20) BUN 11 (9-16) mg/dL Creatinine 0.78 (0.5-1.4) mg/dL Estim Creat Clear Calc 73.0 Estimated GFR > 60 Random Glucose 124 H (60-115) mg/dL Estimat Average Glucose 114 mg/dL Hemoglobin A1c % 5.6 (<6.0) % Calcium 9.7 (8.4-10.2) mg/dL Total Bilirubin 0.3 (0.0-1.0) mg/dL AST 33 H (5-31) U/L ALT 18 (0-31) U/L Alkaline Phosphatase 50 (39-117) U/L Total Protein 7.4 (6.5-8.0) g/dL Albumin 4.3 (3.5-5.0) g/dL Narrative Narrative: EKG 03/2024 Vent. Rate : 046 BPM Atrial Rate : 046 BPM P-R Int : 204 ms QRS Dur : 096 ms QT Int : 442 ms P-R-T Axes : 071 053 067 degrees QTc Int : 386 ms Sinus bradycardia Possible Left atrial enlargement T wave abnormality, consider anterior ischemia Abnormal ECG No previous ECGs available Airway Mallampati Class: II TM Dist: >3cm Neck ROM: Limited Loose/Missing/Broken Teeth: Yes (Magnetic implants) Heart: RRR Lungs: CTAB Assessment and Plan Assessment Anesthesia Assessment: Chart Reviewed (PAT 03/2024) Final Anesthetic Review Family History of Problems with Anesthesia: Yes (Mother PONV) History of Problems with Anesthesia: No Documented by User: Dotty Hernandez MD 05/08/24 07:29 PMFSH Past Medical History Medical History Hx of radiation therapy History of chemotherapy Arthritis Depression History of headache Cough COVID-19 Habitual snoring History of benign breast biopsy Hx LEEP (loop electrosurgical excision procedure), cervix, Anxiety Back pain History of cervical cancer Opiate dependence Major depressive disorder Insomnia Vocal cord polyp Pulmonary nodule History of heroin abuse Chronic hepatitis B without hepatic coma Morbid obesity Hyperlipidemia Stress incontinence Abnormal brain MRI Gait instability Diabetic neuropathy Diabetes GERD (gastroesophageal reflux disease) Surgical History Surgical History History of placement of ear tubes History of lumbar spinal fusion History of excision of pilonidal cyst Hx of tonsillectomy Hx of mastoidectomy Hx of section Hx of lumbar discectomy Social History Social History Are you a primary urgent care physician to a significant other at home: No Do you presently have visiting nurse or other home services: No Comment: due to pain in back all the way down to legs, hunched over with pain also Patient Tobacco Use Status: Current someday Tobacco user Tobacco use type: Cigarette Cigarettes Per Day: 3 Use of substances other than those prescribed or required for medical reasons: Yes Substance Use Type Other:: smoked-last used 05/07/24 Substance Use Frequency: Occasionally Are you DNR?: No Advance Directives: No Advance Directives Information Provided: Yes Meds Allergies Allergy/AdvReac Type Severity Reaction Status Date / Time amoxicillin [From AUGMENTIN] Allergy Unknown N/V/D Verified 05/08/24 06:11 cefaclor [From CECLOR] Allergy Unknown SWELLING Verified 05/08/24 06:11 clavulanic acid Allergy Unknown N/V/D Verified 05/08/24 06:11 [From AUGMENTIN] hydrocodone [From VICODIN] Allergy Unknown N/V Verified 05/08/24 06:11 flurazepam [From Dalmane] Allergy Itching Verified 05/08/24 06:11 nitrofurantoin Allergy Nausea and Verified 05/08/24 06:11 Vomiting Home Medications ?Medication ?Instructions ?Recorded ?Confirmed ?Last Taken ?Type acetaminophen 500 mg tablet 1,000 mg PO Q6H PRN Pain 04/18/24 05/08/24 Unknown History buprenorphine 8 mg-naloxone 2 mg 2 tab sublingual DAILY 04/18/24 05/08/24 05/05/24 History sublingual tablet diclofenac sodium 1 % topical gel 2 g topical QID PRN Pain 04/18/24 05/08/24 Unknown History famotidine 20 mg tablet 20 mg PO DAILY 04/18/24 05/08/24 Unknown History glycopyrrolate 2 mg tablet 2 mg PO TID 04/18/24 05/08/24 Unknown History (Fiorella Boggs) lidocaine 5 % topical patch 1 patch topical DAILY 04/18/24 05/08/24 Unknown History loperamide 2 mg capsule 2 mg PO QID PRN diarrhea 04/18/24 05/08/24 Unknown History nystatin 100,000 unit/gram topical 100,000 unit topical QID PRN Rash 04/18/24 05/08/24 Unknown History powder (Nystop) pregabalin 150 mg capsule 150 mg PO TID 04/18/24 05/08/24 04/22/24 History sumatriptan succinate 50 mg tablet 50 mg PO Q2-4H PRN Headache 04/18/24 05/08/24 Unknown History trazodone 100 mg tablet 100 mg PO BEDTIME 04/18/24 05/08/24 Unknown History venlafaxine 150 mg 300 mg PO QAM 04/18/24 05/08/24 04/22/24 History capsule,extended release 24 hr Exam Airway Denture: Upper and Lower Assessment and Plan Assessment Anesthesia Assessment: Anesthesia Plan Discussed Final Anesthetic Review NPO: Yes ASA Class: III Final Preanesthetic Review: No Changes in Pt Med Stat, Meds/Allgs Chart Reviewed, Consent Obtained/Reviewed, Anes Risks/Benef Reviewed and DNR Form (If Appl.) Patient Risk: Intermediate Procedure Risk: Intermediate Anesthetic Plan Anesthetic Plan: GA Disposition: Standard PACU
[2024-05-08] VITALS (9 sets, daily range): BP systolic 124–132; BP diastolic 60–84; PULSE 40–77; RESP 14–18; TEMP 36.4–36.6; O2SAT 95–97; BMI 26.9
[2024-05-08] MEDS: methocarbamoL 750 MG TABLET PO (06:29)
[2024-05-08] MEDS: Gabapentin 300 MG CAPSULE PO (06:29)
--- NOTE | 2024-05-08 06:56 | MHC.SHP ---
Pre-Procedural Eval Section A - 24 Hr Update-Section A only Date of Service: 05/08/24 Section B - Complete if H&P > 30 days Chief Complaint: Other spondylosis with myelopathy, cervical region Allergies: Allergies Allergy/AdvReac Type Severity Reaction Status Date / Time amoxicillin [From AUGMENTIN] Allergy Unknown N/V/D Verified 05/08/24 06:11 cefaclor [From CECLOR] Allergy Unknown SWELLING Verified 05/08/24 06:11 clavulanic acid Allergy Unknown N/V/D Verified 05/08/24 06:11 [From AUGMENTIN] hydrocodone [From VICODIN] Allergy Unknown N/V Verified 05/08/24 06:11 flurazepam [From Dalmane] Allergy Itching Verified 05/08/24 06:11 nitrofurantoin Allergy Nausea and Verified 05/08/24 06:11 Vomiting Review of Systems Sugical H&P ROS: Negative: Constitution, Cardiovascular, Respiratory, Neurological, Psychiatric, Hem-Onc, Allergic/Immunologic, Gastrointestinal, Genitourinary, Musculoskeletal, Integumentary, Endocrine and Eyes/Ears/Nose/Throat Exam Surgical H&P Exam: Not Evaluated: HEENT, Not Evaluated: Heart, Not Evaluated: Lungs, Not Evaluated: Extremities, Not Evaluated: Abdomen, Not Evaluated: Skin and Not Evaluated: Neurological Exam Comment: The patient is awake, alert, and in no acute distress. Her blood pressure taken in pre-op by nursing staff is 125/60. Proposed surgical incision site is clean without signs of recent surgery or trauma. Plan Diagnosis/Plan: Unchanged I have reviewed the history and physical and performed a pertinent physical examination on my patient. No changes have occurred unless specified. Plan remains the same, C3-4, C4-5 ACDF Time Spent With Patient Time: Total time managing care of this patient today __15__ minutes.
[2024-05-08] MEDS: vancomycin HCL 1,000 MG in 0.9 % Sodium Chloride 250 ML 270 MG IV (06:57)
[2024-05-08] MEDS: Lactated Ringers 1,000 ML 100 ML IVCONT (07:01)
--- NOTE | 2024-05-08 09:38 | P.OP_ITS ---
Operative Note Operative Note Date of Service: 05/08/24 Narrative: Preoperative Diagnosis: Cervical myelopathy due to spinal cord compression C3-4 and C4-5 Procedure: C3-4, C4-5 Anterior discectomy, arthrodesis and implantation cage ; C3-C5 anterior instrumentation ; local autograft; microscope Informed Consent was obtained for this operation. I have explained the nature, purpose and benefits of the operation. I have discussed the risks and benefit of the operation including possible complications or adverse events with patient/family. Alternative(s) were discussed with the patient with their relative benefits and risks as well as the consequences of not accepting the operation were included in obtaining consent. Surgeon: EMMANUEL MOYER MD, PHD Procedure Assisted By: Helio Bryan PA-C Description of Procedure: This 59-year-old female suffering from progressive cervical myelopathy due to spinal cord compression at C3-4 and C4-5 with myelomalacia. Patient was offered an anterior diskectomy and fusion of these levels to stabilize the symptoms and possibly given improvement in neurological symptoms. The procedure complications were explained. The patient was consented. The patient was brought to the operating room and endotracheally intubated. The patient was put in supine position with slight extension of the neck. Prep and drape was done followed by timeout. A mid cervical incision was made followed by opening of the platysma. The prevertebral fascia was reached following the natural planes while the physician human resources assistant manager provided manual retraction. The prevertebral fascia was opened to expose the disc space. A spinal needle was placed in the disk space to confirm the correct levels with xray. The longus colli muscles were released bilaterally and a self retaining retractor was inserted. An initial diskectomy was done of C3-4 and C4-5 towards the posterior annulus. Two Rockmart pins were placed in the C3 and C4 vertebral bodies and distraction was give over the interspace. The discectomy was completed toward the posterior annulus of the disc. The microscope was brought in. The remainder of the discectomy was completed. The posterior ligament was opened and resected to expose the underlying dura. Osteophytes were resected from the body of C3 and C4 and saved for autograft. Bilateral foraminotomies were done. The endplates were prepared after which a 6 mm cage filled with autograft was inserted into the disc space. A separate attached plate was locked down with 2 x 12 mm screws as anterior instrumentation. Then attention was turned to the C4-5 level. The diskectomy was completed. Several fragments of herniated disc were removed to decompress the spinal cord. And hypertrophied posterior longitudinal ligament was resected to further decompress the spinal cord. The foramina were opened bilaterally. This led to good decompression of the spinal cord and exiting nerve roots. The endplates were prepared after which a 6 mm cage filled with autograft was inserted into the disc space. A separate attached plate was locked down with 2 x 14 mm screws as anterior instrumentation. Final x-rays in AP and lateral projection showed a satisfactory position of the implant. The physician human resources assistant manager took over. The Rockmart pin was removed. Hemostasis was done. He closed the incision in 2 layers with a 3-0 Vicryl. Steri-Strips used to approximate incision. An OpSite with Tegaderm was used to cover the incision. All sponge and needle counts were correct. Patient was extubated and transported in stable is to recovery room. Anesthesia: General Estimated Blood Loss (ml): 40 mL Duration of Surgery: 1 hour and 45 minutes Postoperative Plan: Discharge home Complications: None
--- NOTE | 2024-05-08 09:43 | P.DS_ITS ---
DS: Providers Provider Date of Service: 05/08/24 Date of discharge: 05/08/24 Primary care physician: Kyle Chavez III, MD DS: Summary Time Attestation Discharge Coordination Time (in mins): 15 Quality: Safe Use of Opioids Does Pt have an Active Cancer Diagnosis on the Problem List?: No Quality: Stroke Does the patient have a stroke diagnosis?: No Physical Exam Vital Signs: Vital Signs: Last Vital Signs Temp 97.5 F 05/08/24 07:05 Pulse 40 L 05/08/24 07:05 Resp 16 05/08/24 07:05 BP 125/60 05/08/24 07:05 Pulse Ox 97 05/08/24 07:05 O2 Del Method Room Air 05/08/24 07:05 BMI result Body Mass Index 26.9 Discharge Plan Discharge Patient Disposition: Home, Self-Care Referrals: Kyle hCavez III, MD [Primary Care Provider] - 1 Week Discharge Medications: New oxycodone 5 mg tablet 5 mg PO Q6H PRN (Reason: pain (scale score 7-10)) Qty: 12 0RF Continued loperamide 2 mg capsule 2 mg PO QID PRN (Reason: diarrhea) sumatriptan succinate 50 mg Tablet 50 mg PO Q2-4H PRN (Reason: Headache) Rx Instructions: do not exceed 4 doses per 24 hrs acetaminophen 500 mg tablet 1,000 mg PO Q6H PRN (Reason: Pain) famotidine 20 mg Tablet 20 mg PO DAILY trazodone 100 mg tablet 100 mg PO BEDTIME lidocaine 5 % adhesive patch,medicated 1 patch topical DAILY nystatin [Nystop] 100,000 unit/gram powder 100,000 unit topical QID PRN (Reason: Rash) glycopyrrolate [Robinul Forte] 2 mg Tablet 2 mg PO TID pregabalin 150 mg capsule 150 mg PO TID diclofenac sodium 1 % Gel 2 g TOPICAL QID PRN (Reason: Pain) Rx Instructions: apply to single elbow, wrist or hand; for hand includes palm/fingers/back of hand venlafaxine 150 mg capsule,extended release 24hr 300 mg PO QAM Held buprenorphine-naloxone 8-2 mg tablet, sublingual 2 tab sublingual DAILY Hold Instructions: Resume on 05/11/24. Hold until >24 hours after Oxycodone Rx is completed Discharge Orders: Discharge Order (Routine); Ordered 05/08/24 Ordered By: Helio Bryan Diet: Advance to usual diet Activity on Discharge: As tolerated Activity Restrictions/Additional Instructions: After your spinal surgery we ask you to observe the following restrictions/guidelines: Activity: It is normal to feel some discomfort as you increase your activity, but that will improve with time. We ask you avoid heavy lifting or acitivities that cause pain. As a general rule, 8lbs is a safe limit for lifting right after surgery. Walk as much as you feel comfortable but not to exhaustion. You will feel extra tired the first few days after surgery. Stay well hydrated. It is OK to walk up and down stairs You may return to driving when you are off narcotics (such as vicodin, oxycodone, dilaudid, etc), and you are back to normal functional capacity. If you have any concerns please check with office before driving. Return to work is specific to each patient and each surgery, so please speak with your doctor/PA at first follow up. Please bring paperwork such as FMLA at that time if you need it filled out. Medications: Please continue to hold your Suboxone until at least 24 hours after oxycodone discontinuation. You may resume your Lyrica. We recommend you take 1,000mg Tylenol every 8 hours for the first few weeks after surgery, if you do not have any liver issues and can tolerate this medication. Do not exceed 4,000mg daily. We will give you a short supply of narcotics after surgery (usually one weeks worth). If you need more please call the office but do not use more than prescribed. You will need to give our office 48 hours notice if you need narcotics refilled and we do not fill narcotics on weekends or evenings. If you are on a narcotic, it is a good idea to take a stool softener such as colace or senna to avoid constipation If you take blood thinner such as aspirin, Plavix, Coumadin, Effient, Eliquis etc for conditions such as Afib, DVT, Pulmonary embolus, coronary disease, stents etc please speak with your surgeon about specific details as to when you can resume these medications. You can resume NSAIDs on post op day 1 (eg: Motrin, Naproxen, etc). Follow up: Please call the office, , after surgery to arrange a 3 week follow up for wound check. Wound Care: You may remove your dressing on the first day after surgery. ?You may ?leave open to air. Please do not remove the steri strips underneath. they will fall off on their own in one week. IT IS NORMAL FOR THE WOUND TO OOZE OR BE BLOODY FOR A FEW DAYS AFTER SURGERY. ?IF THIS HAPPENS JUST PLACE NEW DRESSING OVER IT TO AVOID STAINING CLOTHES. You may shower on post op day # 1 We ask that you do not let the water soak the wound. If it does get wet, just towel dry lightly. Please do not scrub your incision or place any type of chemical/ointment on the wound. No tub baths, pools or jacuzzis for one month. If you have any leaking or redness from your wound, or fevers, please call the office. Print Language: Martiniquais
[2024-05-08] MEDS: fentaNYL citrate/PF 100 MCG/2 ML VIAL 50 MCG IVPUSH ×2 (10:00→10:05)
[2024-05-08] MEDS: HYDROmorphone HCl 0.5 MG/0.5 ML SYRINGE IVPUSH ×2 (10:10→10:22)
== END 2024-05-08 11:38 | disposition home or self-care (01) ==
PROVIDERS: PCP Internal Medicine; Visit Provider Neurological Surgery
PROC: (CPT 22551; principal; 2024-05-08 07:30)
DX: M47.12 Other spondylosis with myelopathy, cervical region (principal); M50.021 Cervical disc disorder at C4-C5 level with myelopathy; M50.022 Cervical disc disorder at C5-C6 level with myelopathy; M54.12 Radiculopathy, cervical region; E11.40 Type 2 diabetes mellitus with diabetic neuropathy, unspecified; K21.9 Gastro-esophageal reflux disease without esophagitis; E78.5 Hyperlipidemia, unspecified; M19.90 Unspecified osteoarthritis, unspecified site; E66.01 Morbid (severe) obesity due to excess calories; R26.89 Other abnormalities of gait and mobility; Z85.41 Personal history of malignant neoplasm of cervix uteri; Z92.21 Personal history of antineoplastic chemotherapy; Z92.3 Personal history of irradiation; F32.A Depression, unspecified; F11.20 Opioid dependence, uncomplicated; Z79.899 Other long term (current) drug therapy; Z88.1 Allergy status to other antibiotic agents; Z88.8 Allergy status to other drugs, medicaments and biological substances; F17.210 Nicotine dependence, cigarettes, uncomplicated; Z98.890 Other specified postprocedural states
CPT/HCPCS: 22551; 22552; 22853; 20936; 22845; C1713; C1889; J0131; J1100; J1171; J1885; J2003; J2250; J2405; J2704; J3010; J3370

== ENCOUNTER → 2024-05-08 05:44 | Outpatient (BNV) | payer OTHER, SELFPAY | PROVIDERS: PCP Internal Medicine; Visit Provider Neurological Surgery | DX: M50.020 Cervical disc disorder with myelopathy, mid-cervical region, unspecified level (principal); M50.021 Cervical disc disorder at C4-C5 level with myelopathy | CPT/HCPCS: 20936; 22551; 22552; 22845; 22853; 99499 ==

== ENCOUNTER 2024-05-29 13:11 | Outpatient (AMB) | payer OTHER, SELFPAY ==
--- NOTE | 2024-05-29 13:18 | HO.SPINEOV ---
Intake Visit Reasons: 1st post op Intake Note: Ms. Dixon is here today for her 1st post op visit. Mail Distribution Clerk Required: No Allergies amoxicillin [From AUGMENTIN] Allergy (Unknown, Verified 05/29/24 13:35) N/V/D cefaclor [From CECLOR] Allergy (Unknown, Verified 05/29/24 13:35) SWELLING clavulanic acid [From AUGMENTIN] Allergy (Unknown, Verified 05/29/24 13:35) N/V/D hydrocodone [From VICODIN] Allergy (Unknown, Verified 05/29/24 13:35) N/V flurazepam [From Dalmane] Allergy (Verified 05/29/24 13:35) Itching nitrofurantoin Allergy (Verified 05/29/24 13:35) Nausea and Vomiting Assessment & Plan Assessment & Plan (1) S/P cervical spinal fusion: Code(s): Z98.1 - Arthrodesis status Category: Medical Plan Procedure: C3-4, C4-5 Perla comes in today for her 1st postoperative visit. She reports that at this time she essentially feels the same as she did prior to surgery. she continues to have pain in her right arm, and states that she also has posterior neck pain and pain between her shoulder blades. We discussed the postoperative healing course, and I believe she is suffering from protracted course of postoperative inflammation at this time. Other than that she is able to complete her ADLs without issue, and is ambulating with the assistance of a cane. No new neurological deficits. Patient is able to ambulate well, rises from a seated position without difficulty. Anterior incision sites is closed, well healing, with no signs of drainage. We will follow-up with the patient in 6 weeks for their 2nd postoperative visit. She requested to see Dr. Edwards for her next visit to discuss the next surgery she is scheduled to have with us for her lumbar spine. At that time we will get x-rays to review with the patient. Helio Edwards MD,PhD [facility] Coding Level of Care Code Global (31947) Diagnoses S/P cervical spinal fusion Z98.1
--- OUTSIDE RECORDS SUMMARY | 2024-05-29 15:14 | XMS_ITS | Encounter Summary ---
Author Organization [facility] Address [address] [place] [address] Care Team Providers Care Washer Meat Name Role Phone Bravo Edwards MD, PHD Unavailable Unava Kyle King MD Primary Care Provider [phone] Encounter Details Date Type Department Care Team Description 06/19/2023 Pt. Non Urgent Medical Question Adult Medicine [address] [phone] Kyle Chavez MD [address] [place] [address] [id number] Social History Tobacco Use Types Packs/Day Years Used Date Smoking Tobacco: Every Day Cigarettes 0.5 Started: 1980 Smokeless Tobacco: Never Comments:10 cig daily Alcohol Use Standard Drinks/Week Comments No 0 (1 standard drink = 0.6 oz pur e alcohol) Sex Assigned at Date Recorded Female 09/28/2021 7:19 AM E DT Job Start Date Occupation Industry Not on file Not on file Not on file documented as of this encounter Miscellaneous Notes * Telephone Encounter - Tamie Polanco - 06/19/2023 8:24 AM ESTFrom: Perla Zack To: Jose Chavez Sent: 06/19/2023 8:17 AM EST Subject: Appointment I am cancelling my appointment today. My hip is feeling much better today I stayed down all weekend. Thank you for your time. Perla documented in this encounter Plan of Treatment Not on file documented as of this encounter Visit Diagnoses Not on filedocumented in this encounter Care Teams Washer Meat Relationship Specialty Start Date End Date Kyle Chavez MD [address] [place] [id number] PCP - General Internal Medicine 11/25/22 Bravo Edwards MD, PHD Specialist Neurosurgery 06/10/21 documented as of this encounter
--- OUTSIDE RECORDS SUMMARY | 2024-05-29 15:14 | XMS_ITS | Encounter Summary ---
Author Organization [facility] Address [address] [place] [address] Care Team Providers Care County Health Officer Name Role Phone Bravo Edwards MD, PHD Unavailable Unava Kyle King MD Primary Care Provider [phone] Encounter Details Date Type Department Care Team Description 05/09/2023 Pt. Non Urgent Medical Question Adult Medicine [address] [phone] Kyle Chavez MD [address] [place] [address] [phone] Social History Tobacco Use Types Packs/Day Years [...] encounter Miscellaneous Notes * Telephone Encounter - Nancy Chavez L.P.N. - 05/09/2023 3:58 PM ESTFrom: Perlapradip Dixon To: Jose Chavez Sent: 05/09/2023 3:48 PM EST Subject: [facility] Could Dr Chavez please call [facility] they need to speak to him about my prescription. Thank you documented in this encounter Plan of Treatment Not on file documented as of this encounter Visit Diagnoses Not on filedocumented in this encounter Care Teams County Health Officer Relationship Specialty Start Date End Date Kyle Chavez MD [address] [place] [address] PCP - General Internal Medicine 11/25/22 Bravo dEwards MD, PHD Specialist Neurosurgery 06/10/21 documented as of this encounter
--- OUTSIDE RECORDS SUMMARY | 2024-05-29 15:14 | XMS_ITS | Encounter Summary ---
Author Organization [facility] Address [address] [place] [address] Care Team Providers Care Salesperson Florist Supplies Name Role Phone Bravo Edwards MD, PHD Unavailable Unava Kyle King MD Primary Care Provider [phone] Reason for Visit * Reason Onset Date Comments REFERRAL 06/20/2023 Encounter Details Date Type Department Care Team Description 06/20/2023 Telephone Urogynecology [address] [address] Linnette Jj MD [address] [place] [address] [place] [address] REFERRAL Social History Tobacco Use Types Packs/Day Years [...] encounter Miscellaneous Notes * Telephone Encounter - Manasa Garcia Nahun - 06/20/2023 12:17 PM EST FYI Patient is referred to UroGynecology: Reason for referral: Stress Incontinence Patient states she does not want to schedule an appointment documented in this encounter Plan of Treatment Not on file documented as of this encounter Visit Diagnoses Not on filedocumented in this encounter Care Teams Salesperson Florist Supplies Relationship Specialty Start Date End Date Kyle Chavez MD [address] [place] [address] PCP - General Internal Medicine 11/25/22 Bravo Edwards MD, PHD Specialist Neurosurgery 06/10/21 documented as of this encounter
--- OUTSIDE RECORDS SUMMARY | 2024-05-29 15:14 | XMS_ITS | Encounter Summary ---
Author Organization [facility] Address [address] [place] [address] Care Team Providers Care Repair Department Manager Name Role Phone Kyle Chavez MD Primary Care Provider [phone] Bravo Edwards MD, PHD Unavailable [facility], Pcp Primary Care Provider [facility] Kyle Chavez MD Primary Care Provider Reason for Visit * Reason Onset Date Comments Prior Authorization 04/30/2021 Stefan alvarenga [facility] Encounter Details Date Type Department Care Team Description 04/30/2021 Pt. Non Urgent Medic al Question Adult Medicine [address] [address] Mini Breen PA Social History Tobacco Use Types Packs/Day Years [...] file Not on file Not on file COVID-19 Exposure Response Date Recorded In the last month, have you been in contact with someone who was confirmed or suspected to have Coronavirus / COVID-19? No / Unsure 04/19/2021 3:34 PM EST documented as of this encounter Miscellaneous Notes * Telephone Encounter - Manasa Longo M.A. - 05/03/2021 9:25 AM ESTFrom: Perla Dixon To: Jose Kelly Sent: 04/30/2021 10:26 AM EST Subject: Meds Hi Mini! I need a prior authorization for my pain patches. And I need a refill on my famotidine please. Have a wonderful New years and be safe! documented in this encounter Plan of Treatment Not on file documented as of this encounter Visit Diagnoses Not on filedocumented in this encounter Care Teams Repair Department Manager Relationship Specialty Start Date End Date Kyle Chavez MD [address] [place] [address] PCP - General Internal Medicine 11/11/19 11/21/22 [place] [phone] PCP - General Internal Medicine 11/22/22 11/24/22 Kyle Chavez MD [address] [place] [address] PCP - General Internal Medicine 11/25/22 Bravo Edwards MD, PHD [address] [place], [place] [phone] Specialist Neurosurgery 06/10/21 documented as of this encounter
--- OUTSIDE RECORDS SUMMARY | 2024-05-29 15:14 | XMS_ITS | Encounter Summary ---
Author Organization [facility] Address [address] [place] [address] Care Team Providers Care Bingo Worker Name Role Phone Bravo Edwards MD, PHD Unavailable Unava Kyle King MD Primary Care Provider [phone] Encounter Details Date Type Department Care Team Description 07/21/2023 Pt. Non Urgent Medical Question Adult Medicine [address] [address] Kyle Chavez MD [address] [place] [address] [phone] Social History Tobacco Use Types Packs/Day Years [...] * Telephone Encounter - Tamie Polanco - 07/24/2023 8:32 AM EDTFrom: Perla Dixon To: Jose Chavez Sent: 07/21/2023 2:48 PM EDT Subject: Appointment I'm so sorry I made an appointment on the next Monday and I can't do that I forgot I had a dentist appointment. Could somebody call me so I can reschedule that please? My phone number is [phone]. Sorry about the mix-up it wasn't on my calendar. Thank you for your time! documented in this encounter Plan of Treatment Not on file documented as of this encounter Visit Diagnoses Not on filedocumented in this encounter Care Teams Bingo Worker Relationship Specialty Start Date End Date Kyle Chavez MD [address] [place] [address] PCP - General Internal Medicine 11/25/22 Bravo Edwards MD, PHD Specialist Neurosurgery 06/10/21 documented as of this encounter
--- OUTSIDE RECORDS SUMMARY | 2024-05-29 15:14 | XMS_ITS | Encounter Summary ---
Author Organization [facility] Address [address] [place] [address] Care Team Providers Care Commercial Litigation Attorney Name Role Phone Kyle Chavez MD Primary Care Provider Bravo Edwards MD, PHD Unavailable [facility], Pcp [facility] Provider [facility] Kyle Chavez MD Primary Care Provider [phone] Encounter Details Date Type Department Care Team Description 04/14/2021 Pt. Non Urgent Medic al Question Adult Medicine [address] [address] Mini Breen PA Social History Tobacco Use [...] or suspected to have Coronavirus / COVID-19? Unable to assess 04/12/2021 9:06 AM EST documented as of this encounter Plan of Treatment Not on file documented as of this encounter Visit Diagnoses Not on filedocumented in this encounter Care Teams Commercial Litigation Attorney Relationship Specialty Start Date End Date Kyle Chavez MD [address] [place] [address] PCP - General Internal Medicine 11/11/19 11/21/22 [facility], Pcp [address] [place] [address] PCP - General Internal Medicine 11/22/22 11/24/22 Kyle Chavez MD [address] [place] [address] PCP - General Internal Medicine 11/25/22 Bravo Edwards MD, PHD [address] [place] [address] Specialist Neurosurgery 06/10/21 documented as of this encounter
--- OUTSIDE RECORDS SUMMARY | 2024-05-29 15:14 | XMS_ITS | Encounter Summary ---
Author Organization [facility] Address [address] [place] [address] Care Team Providers Care Pilot Boat Captain Name Role Phone Bravo Edwards MD, PHD Unavailable Unava ilable Kyle Chavez MD Primary Care Provider Encounter Details Date Type Department Care Team Description 06/13/2023 Pt. Non Urgent Medical Question Adult Medicine [address] [phone] Kyle Chavez MD [address] [place] [address] [phone] Social History Tobacco Use Types Packs/Day Years [...] on file documented as of this encounter Plan of Treatment Not on file documented as of this encounter Visit Diagnoses Not on filedocumented in this encounter Care Teams Pilot Boat Captain Relationship Specialty Start Date End Date Kyle Chavez MD [address] [place] [address] [phone] PCP - General Internal Medicine 11/25/22 Bravo Edwards MD, PHD Specialist Neurosurgery 06/10/21 documented as of this encounter
--- OUTSIDE RECORDS SUMMARY | 2024-05-29 15:14 | XMS_ITS | Encounter Summary ---
Author Organization [facility] Address [address] [place] [address] Care Team Providers Care Sprayer Hand Name Role Phone Bravo Edwards MD, PHD Unavailable Unava Kyle King MD Primary Care Provider [phone] Encounter Details Date Type Department Care Team Description 06/13/2023 Pt. Non Urgent Medical Question Adult Medicine [address] [address] Kyle Chavez MD [address] [place] [address] Social History Tobacco Use Types Packs/Day Years [...] encounter Miscellaneous Notes * Telephone Encounter - Chito Dang - 06/13/2023 11:04 AM ESTFrom: Perla Dixon To: Jose Chavez Sent: 06/13/2023 7:42 AM EST Subject: Appointment I am just wondering if there are any cancellations today and I could get an appointment Monday is a long way off I just walked by a soft recliner and oh my it was like somebody shot me with a pellet gun. Could someone please call me and let me know enrique I would have to call transportation right away. Thank you I'm just hoping that the re is an opening. documented in this encounter Plan of Treatment Not on file documented as of this encounter Visit Diagnoses Not on filedocumented in this encounter Care Teams Sprayer Hand Relationship Specialty Start Date End Date Kyle Chavez MD [address] [place] [address] PCP - General Internal Medicine 11/25/22 Bravo Edwards MD, PHD Specialist Neurosurgery 06/10/21 documented as of this encounter
--- OUTSIDE RECORDS SUMMARY | 2024-05-29 15:14 | XMS_ITS | Encounter Summary ---
Author Organization [facility] Address [address] [place] [address] Care Team Providers Care Preforming Machine Operator Name Role Phone Kyle Chavez MD Primary Care Provider [phone] Bravo Edwards MD, PHD Unavailable [facility], Pcp Primary Care Provider [facility] Kyle Chavez MD Primary Care Provider [phone] Reason for Visit * Reason Onset Date Comments Prior Authorization 05/04/2021 Encounter Details Date Type Department Care Team Description 05/04/2021 Telephone Adult Medicine [address] [phone] Kyle Chavez MD [address] [place] [address] [phone] Prior Authorization Social History Tobacco Use Types Packs/Day Years [...] encounter Miscellaneous Notes * Telephone Encounter - Nidhi Georges M.A. - 05/04/2021 3:14 PM EST This prior authorization for Lidocaine 5% patches has already been done and approved from 05/03/2021-05/03/2022. I called [facility] pharmacy and this went through patients insurance. See 04/30/2021 encounter. * Telephone Encounter - Evelyn Whittington - 05/04/2021 1:42 PM EST Prior Authorization for Medication-do not complete and send this encounter unless you have the fax from the pharmacy. Is this a Cover My Meds request: Yes -- [place] Code [id number] Name of Medication lidocaine (LIDODERM) Dose of Medication 5 % What is the RX # from the faxed refill? How does patient take this med? Place 1 Patch onto the skin every 24 hours for 28 days. Apply for no more than 12 hours in any 24 hour period. What Pharmacy did the fax come from: [facility] fax #: [phone] [employer] Information from fax: What Prescription Plan does the patient have? BIN/PCN if applicable: Cardholder ID: Person Code: Relationship Code: Help desk phone: documented in this encounter Plan of Treatment Not on file documented as of this encounter Visit Diagnoses Not on filedocumented in this encounter Care Teams Preforming Machine Operator Relationship Specialty Start Date End Date Kyle Chavez MD [address] [place] [address] PCP - General Internal Medicine 11/11/19 11/21/22 [facility], Pcp [address] [place] [address] PCP - General Internal Medicine 11/22/22 11/24/22 Kyle Chavez MD [address] [place] [address] PCP - General Internal Medicine 11/25/22 Bravo Edwards MD, PHD [address] [place] [address] Specialist Neurosurgery 06/10/21 documented as of this encounter
--- OUTSIDE RECORDS SUMMARY | 2024-05-29 15:15 | XMS_ITS | Encounter Summary ---
Author Organization [facility] Address [address] [place] [address] Care Team Providers Care Service Associate Name Role Phone Carlos Nuno MD Primary Care Provider [phone] Lucia Duff MD Primary Care Provider Amy Maldonado MD Primary Care Provider Unavail Jean-Paul Ortega MD Primary Care Provider Unavail able Kyle Chavez MD Primary Care Provider [phone] Bravo Edwards MD, PHD Unavailable [facility], Pcp Primary Care Provider UnavailKyle Putnam MD Primary Care Provider [phone] Encounter Details Date Type Department Care Team Description 12/16/2010 Hospital Medical Records [address] [place] [id number] Dawson Sofia Social History Tobacco Use Types Packs/Day Years [...] on filedocumented in this encounter Care Teams Service Associate Relationship Specialty Start Date End Date Carlos Nuno MD [address] [place] [address] [phone] PCP - General 12/16/1994 02/11/15 Lucia Duff MD [address] [place] [address] PCP - General Internal Medicine 02/12/15 01/31/18 Amy Hernandez MD [address] [place], [place] [phone] PCP - General Internal Medicine 02/01/18 06/03/18 Jean-Paul Carranza MD [address] [place] [address] PCP - General Internal Medicine 06/04/18 11/10/19 Kyle Chavez MD [address] [place] [address] PCP - General Internal Medicine 11/11/19 11/21/22 [facility], Pcp [address] [place], [place] [phone] PCP - General Internal Medicine 11/22/22 11/24/22 Kyle Chavez MD [address] [place] [address] PCP - General Internal Medicine 11/25/22 Bravo Edwards MD, PHD [address] [place] [address] Specialist Neurosurgery 06/10/21 documented as of this encounter
--- OUTSIDE RECORDS SUMMARY | 2024-05-29 15:15 | XMS_ITS | Encounter Summary ---
Author Organization [facility] Address [address] [place] [address] Care Team Providers Care Cuff Turner Machine Operator Name Role Phone Bravo Edwards MD, PHD Unavailable Unava ilable Kyle Chavez MD Primary Care Provider [phone] Encounter Details Date Type Department Care Team Description 11/25/2022 Refill Adult Medicine [address] [phone] Kyle Chavez MD [address] [place] [address] [phone] Social History Tobacco Use Types Packs/Day Years [...] on filedocumented in this encounter Care Teams Cuff Turner Machine Operator Relationship Specialty Start Date End Date Kyle Chavez MD [address] [place] [address] [phone] PCP - General Internal Medicine 11/25/22 Bravo Edwards MD, PHD Specialist Neurosurgery 06/10/21 documented as of this encounter
--- OUTSIDE RECORDS SUMMARY | 2024-05-29 15:15 | XMS_ITS | Encounter Summary ---
Author Organization [facility] Address [address] [place] [address] Care Team Providers Care Production Assembly Supervisor Name Role Phone Bravo Edwards MD, PHD Unavailable Unava Kyle King MD Primary Care Provider [phone] Encounter Details Date Type Department Care Team Description 01/17/2023 Pt. Non Urgent Medical Question Adult Medicine [address] [address] Kyle Chavez MD [address] [place] [address] Social History Tobacco Use Types Packs/Day Years [...] Telephone Encounter - Nancy Chavez L.P.N. - 01/17/2023 1:43 PM EDTFrom: Perla Dixon To: Jose Chavez Sent: 01/17/2023 1:42 PM EDT Subject: Director Of Planning You refer me to a doctor don't you I don't have to find one do I? The reason I missed a lot what Drgrandson is transportation it was horrible then now I get it [facility] so no problems there! Thank you... Perla documented in this encounter Plan of Treatment Not on file documented as of this encounter Visit Diagnoses Not on filedocumented in this encounter Care Teams Production Assembly Supervisor Relationship Specialty Start Date End Date Kyle Chavez MD [address] [place] [address] PCP - General Internal Medicine 11/25/22 Bravo Edwards MD, PHD Specialist Neurosurgery 06/10/21 documented as of this encounter
--- OUTSIDE RECORDS SUMMARY | 2024-05-29 15:15 | XMS_ITS | Encounter Summary ---
Author Organization [facility] Address [address] [place] [address] Care Team Providers Care Squaring Shear Operator Name Role Phone Lucia Duff MD Primary Care Provider Amy Maldonado MD Primary Care Provider Unavail able Jean-Paul Carranza MD Primary Care Provider Unavail able Kyle Chavez MD Primary Care Provider [phone] Bravo Edwards MD, PHD Unavailable Unava [facility], Pcp Primary Care Provider Unavailabl e Kyle Chavez MD Primary Care Provider Reason for Visit * Reason Onset Date Comments refill request 11/27/2015 Encounter Details Date Type Department Care Team Description 11/27/2015 Refill Adult Medicine [address] [address] Lucia Duff MD refill request Social History Tobacco Use Types Packs/Day Years Used Date Smoking Tobacco: Every Day Cigarettes 1 Started: 1980 Smokeless Tobacco: Never Alcohol Use Standard Drinks/Week Comments No 0 (1 standard drink = 0.6 oz pur e alcohol) Sex Assigned at Date Recorded Female 09/28/2021 7:19 AM E DT Job Start Date Occupation Industry Not on file Not on file Not on file documented as of this encounter Miscellaneous Notes * Telephone Encounter - Sonal Murray - 11/27/2015 12:48 PM EDT Patient would like script to be: E-PRESCRIBED/FAXED TO PHARMACY WHEN WAS THE PATIENT'S LAST APPOINTMENT IN ADULT MEDICINE?[id number] WHEN WAS THE LAST TIME THE PATIENT SAW THEIR PCP?[id number] Does patient have an upcoming appointment? Yes [id number] (THE MEDICATION REQUESTED IS ON THE MED LIST ABOVE) All of the medications requested were on the CURRENT MEDS list Did you check the Pharmacy information above?: YES Patient wants: 30 -day supply Is this a mail order prescription request ? NO Patients current insurance carrier is: Payor: [facility] / Plan: [facility] INSURANCE / Product Type: OTHER documented in this encounter Plan of Treatment Not on file documented as of this encounter Visit Diagnoses Not on filedocumented in this encounter Care Teams Squaring Shear Operator Relationship Specialty Start Date End Date Lucia Duff MD PCP - General Internal Medicine 02/12/15 01/31/18 Amy Hernandez MD PCP - General Internal Medicine 02/01/18 06/03/18 Jean-Paul Carranza MD PCP - General Internal Medicine 06/04/18 11/10/19 Kyle Chavez MD [address] [place], [place] [phone] PCP - General Internal Medicine 11/11/19 11/21/22 [place] [id number] PCP - General Internal Medicine 11/22/22 11/24/22 Kyle Chavez MD [address] [place], [place] [phone] PCP - General Internal Medicine 11/25/22 Bravo Edwards MD, PHD [address] [place], [place] [phone] Specialist Neurosurgery 06/10/21 documented as of this encounter
--- OUTSIDE RECORDS SUMMARY | 2024-05-29 15:15 | XMS_ITS | Encounter Summary ---
Author Organization [facility] Address [address] [place] [address] Care Team Providers Care Car Varnisher Name Role Phone Kyle Chavez MD Primary Care Provider [phone] Bravo Edwards MD, PHD Unavailable [facility], Pcp Primary Care Provider [facility] [place] MD Primary Care Provider [phone] Reason for Visit * Reason Onset Date Comments injury 11/01/2022 Leg Pain 11/01/2022 Fall 11/01/2022 Encounter Details Date Type Department Care Team Description 11/01/2022 Pt. Non Urgent Medical Question Adult Medicine [address] [phone] Kyle Chavez MD [address] [place] [address] [phone] Social History Tobacco Use Types Packs/Day Years [...] encounter Miscellaneous Notes * Telephone Encounter - Carrie Roy M.A. - 11/02/2022 7:16 AM EDTFrom: Perla BellZack To: Jose Chavez Sent: 11/01/2022 6:53 AM EDT Subject: Right leg I really need to see someone as soon as possible today. Last night I fell and I don't know what I did to my leg I can't put pressure on it and it's hurting very badly Could someone please call me at [phone]. I mean when I say it hurts and a scale of 1 to 10 I'm a 15! I will anxiously be waiting for your response! Thank you very much... . Perla documented in this encounter Plan of Treatment Not on file documented as of this encounter Visit Diagnoses Not on filedocumented in this encounter Care Teams Car Varnisher Relationship Specialty Start Date End Date Kyle Chavez MD [address] [place] [address] PCP - General Internal Medicine 11/11/19 11/21/22 [facility] Pcp [address] [place] [address] PCP - General Internal Medicine 11/22/22 11/24/22 Kyle Chavez MD [address] [place] [address] PCP - General Internal Medicine 11/25/22 Bravo Edwards MD, PHD [address] [place] [address] Specialist Neurosurgery 06/10/21 documented as of this encounter
--- OUTSIDE RECORDS SUMMARY | 2024-05-29 15:15 | XMS_ITS | Encounter Summary ---
Author Organization [facility] Address [address] [place] [address] Care Team Providers Care Mixing Plant Operator Name Role Phone Bravo Edwards MD, PHD Unavailable Unava ilKyle Camejo MD Primary Care Provider [phone] Reason for Visit * Reason Onset Date Comments Advice 02/26/2023 Encounter Details Date Type Department Care Team Description 02/26/2023 Pt. Non Urgent Medical Question Adult Medicine [address] [phone] Kyle Chavez MD [address] [place] [address] Social History Tobacco Use Types Packs/Day Years [...] Exposure Response Date Recorded In the last 10 days, have yo u been in contact with someone who was confirmed or suspected to have Coronavirus/COVID-19? No / Unsure 02/27/2023 10:34 AM EDT documented as of this encounter Miscellaneous Notes * Telephone Encounter - Manasa Longo M.A. - 02/27/2023 8:47 AM EDTFrom: Perla Dixon To: Jose Chavez Sent: 02/26/2023 5:08 PM EDT Subject: Neurologist Dr Chavez I have an appointment Monday and I thought it was with you! I wanted to talk to you about my neck surgery and how I can't walk far anymore and all the pain I in. [facility] What doctor would I have now and could you please send a referral? My hips hurt when I walk My feet always hurt My hands are alwa ys numb I'm getting bad headaches from my neck too! I don't know how I will make it in a senior care it's going to ruin me! I need three pillows and a gel bed just to sleep. And I only sleep an hour and a half at a time I have to get up for a couple hours and go back to bed again and this happens every night. I know booking an appointment with the neurologist and booking surgery will take time so I like to start doing it now. Thank you for listening! Please let me know who the doctor is so I can make an appointment. Stay well Dr Chavez! Thank you for everything! documented in this encounter Plan of Treatment Not on file documented as of this encounter Visit Diagnoses Not on filedocumented in this encounter Care Teams Mixing Plant Operator Relationship Specialty Start Date End Date Kyle Chavez MD [address] [place] [address] PCP - General Internal Medicine 11/25/22 Bravo Edwards MD, PHD Specialist Neurosurgery 06/10/21 documented as of this encounter
--- OUTSIDE RECORDS SUMMARY | 2024-05-29 15:15 | XMS_ITS | Encounter Summary ---
Author Organization [facility] Address [address] [place] [address] Care Team Providers Care Record Press Operator Name Role Phone Lucia Duff MD Primary Care Provider Amy Maldonado MD Primary Care Provider Unavail able Jean-Paul Carranza MD Primary Care Provider Unavail able Kyle Chavez MD Primary Care Provider [phone] Bravo Edwards MD, PHD Unavailable Unava [facility], Pcp Primary Care Provider Unavailabl e Kyle Chavez MD Primary Care Provider [phone] Reason for Visit * Reason Onset Date Comments refill request 02/22/2016 Encounter Details Date Type Department Care Team Description 02/22/2016 Refill Adult Medicine [address] [address] Lucia Duff MD refill request Social History [...] encounter Miscellaneous Notes * Telephone Encounter - Winnie Amaya - 02/22/2016 11:34 AM EDT Patient would like script to be: E-PRESCRIBED/FAXED TO PHARMACY WHEN WAS THE PATIENT'S LAST APPOINTMENT IN ADULT MEDICINE? 12/02/15 WHEN WAS THE LAST TIME THE PATIENT SAW THEIR PCP? Same as above Does patient have an upcoming appointment? Yes 04/06/16 (THE MEDICATION REQUESTED IS ON THE MED LIST ABOVE) All of the medications requested were on the CURRENT MEDS list Did you check the Pharmacy information above?: YES Patient wants: 30 -day supply Is this a mail order prescription request ? NO Patients current insurance carrier is: Payor: [facility] / Plan: [facility] INSURANCE / Product Type: OTHER documented in this encounter Plan of Treatment Not on file documented as of this encounter Visit Diagnoses Not on filedocumented in this encounter Care Teams Record Press Operator Relationship Specialty Start Date End Date Lucia Duff MD PCP - General Internal Medicine 02/12/15 01/31/18 Amy Hernandez MD PCP - General Internal Medicine 02/01/18 06/03/18 Jean-Paul Carranza MD PCP - General Internal Medicine 06/04/18 11/10/19 Kyle Chavez MD [address] [place] [address] PCP - General Internal Medicine 11/11/19 11/21/22 [place] [id number] PCP - General Internal Medicine 11/22/22 11/24/22 Kyle Chavez MD [address] [place], [place] [id number] PCP - General Internal Medicine 11/25/22 Bravo Edwards MD, PHD [address] [place], [place] [phone] Specialist Neurosurgery 06/10/21 documented as of this encounter
--- OUTSIDE RECORDS SUMMARY | 2024-05-29 15:15 | XMS_ITS | Patient Health Record ---
Author Organization [facility] Address [address] [place] [address] Care Team Providers Care Energy And Sustainability Manager Name Role Phone Cheko Chavez MD Primary Care Provider Julienne Cade Unavailable [phone] Allergies Allergen (clinical drug ingredient) Drug/Non Drug [...] Performing Lab: Notes/Report: HEMOGLOBIN A1C (HH) 6.1 HEMOGLOBIN A1C (GLYCOHEMOGLO BIN) Reviewed date:05/29/2024 11:08:33 AM Interpretation: Performing Lab: Notes/Report: HEMOGLOBIN A1C % (HH) 6.2 Reason For Referral No Information Medications Medication SIG (Take, Route, Frequency, Duration) Notes Start Date End Date Status Glycopyrrolate 2 MG as directed Orally Active Lyrica 150 MG 1 capsule Orally Once a day Active Effexor 350mg Active Famotidine 20 MG 1 tablet at bedtime as needed Orally Once a day for 30 day(s) Active Ativan 1 MG 1 tablet at bedtime as needed Orally Once a day Not-Taking Suboxone 8.2mg 2 tablets 1x day Active traZODone HCl 100 MG 1 tablet at bedtime Orally Once a day for 30 day(s) Active Extra Depth Orthopedic Shoes (1 Pair) with Customized Heat Molded Multidensity Innersoles (3 Pair) as directed Dx: NIDDM/Polyneuropathy (E11.42), Hammertoe Foot Deformity (M20.41,M20.42), Preulcerative Skin Lesion(s) (L85.1 04/22/2022 Active Extra Depth Orthopedic Shoes (1 Pair) with Customized Heat Molded Multidensity Innersoles (3 Pair) as directed Dx: NIDDM/Polyneuropathy (E11.42), Hammertoe Foot Deformity (M20.41,M20.42), Preulcerative Skin Lesion(s) (L85.1 03/06/2024 Active Ammonium Lactate 12 % 1 application to affected area Externally to feet Twice a day for 30 days Active Immunizations Vaccine Route Administration Date Status [...] Problem Acquired hammer toe of right foot (160252843129 9105) Other hammer toe(s) (acquired), right foot (M20.41) Active confirmed Problem Acquired hammer toe of left foot (459175650206 9103) Other hammer toe(s) (acquired), left foot (M20.42) Active confirmed Problem [id number] Hammer toe of le ft foot (M20.42) Active confirmed Problem [id number] Type 2 diabetes mellitus with polyneuropathy (E11.42) Active confirmed Vital Signs Blood pressure diastolic 70 mm Hg 05/29/2024 Height 5ft3in in 05/29/2024 Blood pressure systolic 110 mm Hg 05/29/2024 Weight 160 lbs 05/29/2024 BMI 28.34 kg/m2 05/29/2024 Encounters Encounter Location Date Provider Diagnosis [facility] [place] [address] [place] [address] 08/18/2023 Julienne Pop Tinea unguium B35.1 and Type 2 diabetes mellitus with polyneuropathy E11.[address] [address] 11/21/2023 Juliennefredy Pop Tinea unguium B35.1 and Type 2 diabetes mellitus with polyneuropathy E11.[address] [address] 03/06/2024 Julienne Pop Type 2 diabetes mellitus with polyneuropathy E11.42 ; Other hammer toe(s) (acquired), right foot M20.41 ; Tinea unguium B35.1 and Other hammer toe(s) (acquired), left foot M20.[address] [address] 05/29/2024 Julienne Pop Type 2 diabetes mellitus with polyneuropathy E11.42 and Tinea unguium B35.[address] [address] 07/25/2023 Julienne Pop [address] [address] 08/18/2023 Julienne Pop Assessments Encounter Date Diagnosis (ICD Code) Assessment Notes Treatment Notes Treatment Clinical Notes Section Notes 08/18/2023 Tinea unguium (ICD-10 - B35.1) 11/21/2023 Tinea unguium (ICD-10 - B35.1) 03/06/2024 Other hammer toe(s) (acquired), right foot (ICD-10 - M20.41) Patient Educated with: DIABETIC FOOT CARE INSTRUCTIONS. pdf (DIABETIC FOOT CARE INSTRUCTIONS. pdf) 03/06/2024 Type 2 diabetes mellitus with polyneuropathy (ICD-10 - E11.42) 05/29/2024 Tinea unguium (ICD-10 - B35.1) 05/29/2024 Type 2 diabetes mellitus with polyneuropathy (ICD-10 - E11.42) 03/06/2024 Tinea unguium (ICD-10 - B35.1) 11/21/2023 Type 2 diabetes mellitus with polyneuropathy (ICD-10 - E11.42) 08/18/2023 Type 2 diabetes mellitus with polyneuropathy (ICD-10 - E11.42) 03/06/2024 Other hammer toe(s) (acquired), left foot (ICD-10 - M20.42) 05/29/2024 Other Plan Of Treatment Next Appt Details Provider Name:Julienne rock, 08/21/2024 11:00:00 AM, [address] [place], [address], Insurance Providers Payer Name Payer Address Payer Phone Subscriber Number Group Number Insured Name Patient Relationship to Insured Coverage Start Date Coverage End Date [facility] [employer] Claims [address] [place] [id number] Perla Pelaez Self - patient is the [...] 09/11/1991 mastoidectomy ear tubes Dental Implant 05/2021 Neck fusion
--- OUTSIDE RECORDS SUMMARY | 2024-05-29 15:15 | XMS_ITS | Encounter Summary ---
Author Organization [facility] Address [address] [place] [address] Care Team Providers Care Lamp Shade Sewer Name Role Phone Bravo Edwards MD, PHD Unavailable Unava ilable Kyle Chavez MD Primary Care Provider [phone] Encounter Details Date Type Department Care Team Description 05/03/2023 Pt. Non Urgent Medical Question Adult Medicine [address] [phone] Kyle Chavez MD [address] [place] [address] [phone] Social History Tobacco Use Types Packs/Day Years [...] on filedocumented in this encounter Care Teams Lamp Shade Sewer Relationship Specialty Start Date End Date Kyle Chavez MD [address] [place] [address] [id number] PCP - General Internal Medicine 11/25/22 Bravo Edwards MD, PHD Specialist Neurosurgery 06/10/21 documented as of this encounter
--- OUTSIDE RECORDS SUMMARY | 2024-05-29 15:15 | XMS_ITS | Encounter Summary ---
Author Organization [facility] Address [address] [place] [address] Care Team Providers Care Park Keeper Name Role Phone Lucia Duff MD Primary Care Provider Amy Maldonado MD Primary Care Provider Unavail able Jean-Paul Carranza MD Primary Care Provider Unavail able Kyle Chavez MD Primary Care Provider [phone] Bravo Edwards MD, PHD [facility] Primary Care Provider Unavailabl Kyle Washington MD Primary Care Provider [phone] Encounter Details Date Type Department Care Team Description 07/03/2015 Business Doc Medical Records [address] [place] [id number] Abstract, Provider Social History Tobacco Use Types Packs/Day Years [...] on filedocumented in this encounter Care Teams Park Keeper Relationship Specialty Start Date End Date Lucia Duff MD PCP - General Internal Medicine 02/12/15 01/31/18 Amy Hernandez MD PCP - General Internal Medicine 02/01/18 06/03/18 Jean-Paul Carranza MD PCP - General Internal Medicine 06/04/18 11/10/19 Kyle Chavez MD [address] [place] [address] PCP - General Internal Medicine 11/11/19 11/21/22 [facility], Pcp [address] [place], [place] [phone] PCP - General Internal Medicine 11/22/22 11/24/22 Kyle Chavez MD [address] [place] [address] PCP - General Internal Medicine 11/25/22 Bravo Edwards MD, PHD [address] [place] [address] Specialist Neurosurgery 06/10/21 documented as of this encounter
--- OUTSIDE RECORDS SUMMARY | 2024-05-29 15:15 | XMS_ITS | Encounter Summary ---
Author Organization [facility] Address [address] [place] [address] Care Team Providers Care Network Analyst Name Role Phone Lucia Duff MD Primary Care Provider Amy Maldonado MD Primary Care Provider Unavail able Jean-Paul Carranza MD Primary Care Provider Unavail able Kyle Chavez MD Primary Care Provider Bravo Edwards MD, PHD [facility] Primary Care Provider Unavailabl Kyle Washington MD Primary Care Provider [phone] Encounter Details Date Type Department Care Team Description 12/14/2015 Transfer Records Medical Records [address] [place] [id number] Abstract, Provider Social History Tobacco Use Types [...] on filedocumented in this encounter Care Teams Network Analyst Relationship Specialty Start Date End Date Lucia Duff MD PCP - General Internal Medicine 02/12/15 01/31/18 Amy Hernandez MD PCP - General Internal Medicine 02/01/18 06/03/18 Jean-Paul Carranza MD PCP - General Internal Medicine 06/04/18 11/10/19 Kyle Chavez MD [address] [place] [address] PCP - General Internal Medicine 11/11/19 11/21/22 [facility], Pcp [address] [place], [place] [phone] PCP - General Internal Medicine 11/22/22 11/24/22 Kyle Chavez MD [address] [place] [address] PCP - General Internal Medicine 11/25/22 Bravo Edwards MD, PHD [address] [place] [address] Specialist Neurosurgery 06/10/21 documented as of this encounter
--- OUTSIDE RECORDS SUMMARY | 2024-05-29 15:15 | XMS_ITS | Encounter Summary ---
Author Organization [facility] Address [address] [place] [address] Care Team Providers Care Ambulatory Analyst Name Role Phone Bravo Edwards MD, PHD Unavailable Unava ilable Kyle Chavez MD Primary Care Provider [phone] Encounter Details Date Type Department Care Team Description 11/25/2022 Pt. Non Urgent Medical Question Adult Medicine [address] [phone] Kyle Chavez MD [address] [place] [address] [phone] Social History Tobacco Use Types Packs/Day Years [...] on filedocumented in this encounter Care Teams Ambulatory Analyst Relationship Specialty Start Date End Date Kyle Chavez MD [address] [place] [address] [id number] PCP - General Internal Medicine 11/25/22 Bravo Edwards MD, PHD Specialist Neurosurgery 06/10/21 documented as of this encounter
--- OUTSIDE RECORDS SUMMARY | 2024-05-29 15:15 | XMS_ITS ---
Author Organization [facility] Address [address] [facility] [place] [facility] [place] [address] Care Team Providers Care Senior Account Director Name Role Phone Cheko Chavez MD Primary Care Provider Julienne Cade Unavailable [phone] Allergies Allergen (clinical drug ingredient) Drug/Non Drug [...] Problem Acquired hammer toe of right foot (1330609593061 105) Other hammer toe(s) (acquired), right foot (M20.41) Active confirmed Problem Acquired hammer toe of left foot (1688217678141 103) Other hammer toe(s) (acquired), left foot (M20.42) Active confirmed Vital Signs Height 5ft3in in 03/06/2024 Weight 161 lbs 03/06/2024 BMI 28.52 kg/m2 03/06/2024 Encounters Encounter Location Date Provider Diagnosis [facility] [address] [address] 03/06/2024 Julienne Pop Type 2 diabetes mellitus [...] Up: 3 Months, Reason: Provider Name:Julienne rock, 08/21/2024 11:00:00 AM, [address] [place] [address], [phone], Procedure Notes * Category Sub-Category Detail Notes [...] as necessary. Patient chooses, no pharmaceutical tx (19448) Keratoma Treatment Parring or Cutting o f Benign Hyperkeratotic Lesion(s) 05202 ( More than 4 Lesions ) - The Benign hyperkeratotic lesions, as described above were pared, and/or cut utilizing a sterile 15 blade, tissue nippers, and/or dremel Progress Notes * SERGORehanahyDOB:1964 (58 yo F)Acc No.[id number]:03/06/2024 Progress Note Patient:?Perla Dixon Provider:?Julienne Pop DPM :1965???Age:58 Y???Sex:Female D ate:03/06/2024 Address:[address] [place] [address], [phone] Pcp:Cheko Chavez MD Subjective: * Chief Complaints: [...] as necessary. Patient chooses, no pharmaceutical tx (51066).?Keratoma Treatment:?Parring or Cutting of Benign Hyperkeratotic Lesion(s)?11080 ( More than 4 Lesions ) - The Benign hyperkeratotic lesions, as described above were pared, and/or cut utilizing a sterile 15 blade, tissue nippers, and/or dremel.? * Procedure Codes:?79149 DEBRI DE NAIL, 6 OR MORE, Modifiers: XS 26810 TRIM SKIN LESIONS, OVER 4, Modifiers: XS [...] Pop, DPKingston Date:?09/2023 Generated for Lia sigala/Billy/Kelsi on:?05/29/2024 03:15 PM EST History and Physical Notes * [...]
--- OUTSIDE RECORDS SUMMARY | 2024-05-29 15:15 | XMS_ITS | Encounter Summary ---
Author Organization [facility] Address [address] [place] [address] Care Team Providers Care Sprayer Automatic Spray Machine Name Role Phone Bravo Edwards MD, PHD Unavailable Unava Kyle King MD Primary Care Provider [phone] Reason for Visit * Reason Onset Date Comments Form 01/28/2023 Housing Encounter Details Date Type Department Care Team Description 01/28/2023 Pt. Non Urgent Medical Question Adult Medicine [address] [phone] Kyle Chavez MD [address] [place] [address] Social History Tobacco Use Types Packs/Day Years [...] on file documented as of this encounter Progress Notes * Carrie Roy M.A. - 01/30/2023 7:38 AM EDT ARTURO James to you and routing to the forms department to process PT request, thank you. documented in this encounter Plan of Treatment Not on file documented as of this encounter Visit Diagnoses Not on filedocumented in this encounter Care Teams Sprayer Automatic Spray Machine Relationship Specialty Start Date End Date Kyle Chavez MD [address] [place] [address] PCP - General Internal Medicine 11/25/22 Bravo Edwards MD, PHD Specialist Neurosurgery 06/10/21 documented as of this encounter
--- OUTSIDE RECORDS SUMMARY | 2024-05-29 15:15 | XMS_ITS | Encounter Summary ---
Author Organization [facility] Address [address] [place] [address] Care Team Providers Care Technology Recruiter Name Role Phone Kyle Chavez MD Primary Care Provider [phone] Bravo Edwards MD, PHD Unavailable [facility], Pcp Primary Care Provider [facility] Kyle Chavez MD Primary Care Provider [phone] Encounter Details Date Type Department Care Team Description 11/01/2022 Night Triage Doc Medical Records [address] [place] [address] Abstract, Provider Social History Tobacco Use Types [...] on filedocumented in this encounter Care Teams Technology Recruiter Relationship Specialty Start Date End Date Kyle Chavez MD [address] [place] [address] [phone] PCP - General Internal Medicine 11/11/19 11/21/22 [facility], Pcp [address] [place] [address] PCP - General Internal Medicine 11/22/22 11/24/22 Kyle hCavez MD [address] [place] [address] PCP - General Internal Medicine 11/25/22 Bravo Edwards MD, PHD [address] [place] [address] Specialist Neurosurgery 06/10/21 documented as of this encounter
--- OUTSIDE RECORDS SUMMARY | 2024-05-29 15:15 | XMS_ITS | Encounter Summary ---
Author Organization [facility] Address [address] [place] [address] Care Team Providers Care Design Agent Name Role Phone Bravo Edwards MD, PHD Unavailable Unava Kyle King MD Primary Care Provider [phone] Encounter Details Date Type Department Care Team Description 01/26/2023 Pt. Non Urgent Medical Question Adult Medicine [address] [address] Kyle Chavez MD [address] [place] [address] Social History Tobacco Use Types Packs/Day Years [...] encounter Miscellaneous Notes * Telephone Encounter - Idania Tatum C.M.A. - 01/26/2023 2:15 PM EDTFrom: Perla Dixon To: Jose Chavez Sent: 01/26/2023 1:51 PM EDT Subject: Podiatry I found a sales professional his name is Dr Johnson Lozano. He's at [address] [place] [address]. Can you please send a referral to them because then they'll take me quicker than the end of March. I would greatly appreciate it. documented in this encounter Plan of Treatment Not on file documented as of this encounter Visit Diagnoses Not on filedocumented in this encounter Care Teams Design Agent Relationship Specialty Start Date End Date Kyle Chavez MD [address] [place] [address] PCP - General Internal Medicine 11/25/22 Bravo Edwards MD, PHD Specialist Neurosurgery 06/10/21 documented as of this encounter
--- OUTSIDE RECORDS SUMMARY | 2024-05-29 15:15 | XMS_ITS | Encounter Summary ---
Author Organization [facility] Address [address] [place] [address] Care Team Providers Care Lunchroom Food Service Supervisor Name Role Phone Bravo Edwards MD, PHD Unavailable Unava Kyle King MD Primary Care Provider [phone] Reason for Visit * Reason Onset Date Comments REFERRAL 01/14/2023 Pt asking about Referral to Podiatry Encounter Details Date Type Department Care Team Description 01/14/2023 Pt. Non Urgent Medical Question Adult Medicine [address] [phone] Kyle Chavez MD [address] [place] [address] Social History Tobacco Use Types Packs/Day Years [...] Telephone Encounter - Manasa Longo M.A. - 01/16/2023 7:43 AM EDTFrom: Perla Dixon To: Jose Chavez Sent: 01/14/2023 12:32 PM EDT Subject: Video Coordinator Hi Dr Chavez I need a referral to a apprentice/lineman. I missed one when I was in the hospital and with everything going on about going into a long term I missed another one. My toenails are really hurting me now. I send you a message on a 13 and I haven't heard anything back. I would appreciate it please. Thank you documented in this encounter Plan of Treatment Not on file documented as of this encounter Visit Diagnoses Not on filedocumented in this encounter Care Teams Lunchroom Food Service Supervisor Relationship Specialty Start Date End Date Kyle Chavez MD [address] [place] [address] PCP - General Internal Medicine 11/25/22 Bravo Edwards MD, PHD Specialist Neurosurgery 06/10/21 documented as of this encounter
--- OUTSIDE RECORDS SUMMARY | 2024-05-29 15:15 | XMS_ITS | Encounter Summary ---
Author Organization [facility] Address [address] [place] [address] Care Team Providers Care Toe Stripper Name Role Phone Bravo Edwards MD, PHD Unavailable Mand[facility] Kyle King MD Primary Care Provider [phone] Encounter Details Date Type Department Care Team Description 02/27/2023 Telephone Adult Medicine [address] [address] Eduarda Paige APRN [address] [place] [address] Social History Tobacco Use Types Packs/Day Years [...] encounter Miscellaneous Notes * Telephone Encounter - Eduarda Paige APRN - 02/27/2023 11:32 AM EDT Patient is requesting that you call [facility] on her behalf to boost her chances of getting an apartment. She does not want to go to the snf due to previous drug history. She is afraid shemight relapse. You have already provided her with 2 letters in 07/2022. She provided me with this phone number [phone] for you to call. documented in this encounter Plan of Treatment Not on file documented as of this encounter Visit Diagnoses Not on filedocumented in this encounter Care Teams Toe Stripper Relationship Specialty Start Date End Date Kyle Chavez MD [address] [place] [address] PCP - General Internal Medicine 11/25/22 Bravo Edwards MD, PHD Specialist Neurosurgery 06/10/21 documented as of this encounter
--- OUTSIDE RECORDS SUMMARY | 2024-05-29 15:15 | XMS_ITS | Clinical Summary ---
Author Organization [facility] [address] [place] [address] [place] [address] [place] [address] Phone Care Team Providers Care Digital Media Intern Name Role Phone Kyle Chavez MD Primary Care Provider [phone] Allergies Active Allergy Reactions Criticality Noted Date Comments Amoxicillin-Pot Clavulanate 04/02/20 15 Vomiting, diarrhea Can take Amoxicillin or Penicillin Cefaclor 02/25/2005 Angioedema, itchy Flurazepam 05/04/2015 Itching Hydrocodone-Acetaminophen 04/02/2015 Nausea, vomiting Nitrofurantoin 06/27/2019 Nausea, vomiting Medications Medication Sig Dispensed Refills Start Date End Date Status acetaminophen (TYLENOL) 500 mg capsule Take 2 capsules (1,000 mg total) by mouth every 6 (six) hours if needed for mild pain. 4 Active ammonium lactate (AMLACTIN) 12 % cream Apply topically 1 (one) time each day. Apply to both feet for dry skin and calluses 1 Active buprenorphine- naloxone (SUBOXONE) 8-2 mg per SL tablet Place 2 tablets under the tongue. Active diclofenac (VOLTAREN) 1 % topical gel Apply 1 g topically 2 (two) times a day. 3 Active estrogens, conjugated (PREMARIN VAGL) Insert into the vagina. Active FREESTYLE LANCETS MISC 1 EA by extracorporeal route 3 (three) times a day. 7 Active blood sugar diagnostic (FreeStyle Lite Strips) test strip 1 each by Other route 3 (three) times a day. 7 Active blood-glucose meter kit 1 Lancet by extracorporeal route 1 (one) time each day. 0 Active incontinence pad, liner, disp (Bladder Control Pads) pad 1 each by Not Applicable route 4 (four) times a day. REGULAR 8 Active lidocaine (LIDODERM) 5 % patch Place 1 patch on the skin 1 (one) time each day. Apply for no more than 12 hours in any 24 hour period 4 Active naproxen (NAPROSYN) 500 mg tablet Take 1 tablet (500 mg total) by mouth 2 (two) times a day with meals. 3 Active nystatin (MYCOSTATIN) cream Apply topically 2 (two) times a day. 4 Active polyethylene glycol (MIRALAX) 17 gram packet Take 17 g by mouth 1 (one) time each day. MIXED WITH WATER OR JUICE 1 TO 2 TIMES DAILY NEEDED FOR CONSTIPATION 1 Active pregabalin (LYRICA) 150 mg capsule Take 1 capsule (150 mg total) by mouth 3 (three) times a day. 4 Active SUMAtriptan (IMITREX) 50 mg tablet Take 1 tablet (50 mg total) by mouth 1 (one) time if needed for migraine. MAY REPEAT DOSE 1 TIME AFTER 2 HOURS, NEEDED. MAX 2 IN 24 HOURS 2 Active traZODone (DESYREL) 100 mg tablet TAKE ONE TABLET BY MOUTH DAILY AT 5 PM EVERY EVENING 90 tablet 1 5 Active venlafaxine XR (EFFEXOR-XR) 150 mg 24 hr capsule Take 2 capsules (300 mg total) by mouth 1 (one) time each day in the morning. 180 capsule 1 5 Active famotidine (PEPCID) 20 mg tablet Take 1 tablet (20 mg total) by mouth 1 (one) time each day in the morning. 90 tablet 1 5 Active glycopyrrolate (ROBINUL) 2 mg tablet Take 1 tablet (2 mg total) by mouth 3 (three) times a day. 270 tablet 1 5 Active famotidine (PEPCID) 20 mg tablet Take 1 tablet (20 mg total) by mouth 1 (one) time each day. 3 05/16/19 25 Discontinued glycopyrrolate (ROBINUL) 2 mg tablet Take 1 tablet (2 mg total) by mouth 3 (three) times a day. 4 05/15/19 25 Discontinued(Re order) nystatin (MYCOSTATIN) 100,000 unit/gram powder Apply 100,000 Units topically 4 (four) times a day. for 360 days 4 05/11/19 25 traZODone (DESYREL) 100 mg tablet Take 1 tablet (100 mg total) by mouth at bedtime. 9 05/16/19 25 Discontinued venlafaxine XR (EFFEXOR-XR) 150 mg 24 hr capsule Take 1 capsule (150 mg total) by mouth 2 (two) times a day. 9 05/16/19 25 Discontinued Active Problems Problem Noted Date Diagnosed Date Opiate dependence 02/07/2024 Acid reflux 03/23/2020 Abnormal brain MRI 02/28/2018 Overview (02/07/2024): White matter lesions suspicious for MS and cortical atrophy. Patient referred to neurology Diabetic neuropathy 02/28/2018 Gait instability 02/28/2018 Overview (02/07/2024): Utilizes walker Type 2 diabetes mellitus 02/28/2018 Stress incontinence 07/26/2017 Hyperlipidemia LDL goal <100 12/02/2015 Morbid obesity 07/31/2015 Chronic hepatitis C without hepatic coma 016 Overview (02/07/2024): Low level viral load (18,000) Detectable June 2014 Undetectable May 2015 with no treatment Repeat in 6 months Pulmonary nodules 04/01/2015 Overview (02/07/2024): Seen on PET scan 2014 unchanged from 2013, documented stability on chest Ct from 06/2017 CT 09/2017 - ordered from gynonc: showing few small bilateral pulmonary nodules up to 4mm Insomnia 03/31/2015 Major depressive disorder 03/31/2015 Overview (02/07/2024): Recurrent /Dr Xochilt Yanes, [place] 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 Chronic back pain 02/25/2005 Overview (02/07/2024): S/p 2 lumbar fusion, 2 discectomy Resolved Problems Problem Noted Date Diagnosed Date Resolved Date History of heroin abuse 04/02/201512/2023 Overview (02/07/2024): Now on suboxone Encounters Date Type Department Care Team Description 05/20/2024 Telephone Adult Medicine [address] [phone] Abi Blount RN Fitting for DME 05/16/[address] [phone] Kyle Chavez MD 05/14/2024 [place] Adult [address] [phone] Kyle Chavez MD Fitting for DME (Rollator walker) 03/27/[address] [phone] Kyle Chavez MD Med Refill 03/19/2024 10:00 AM EST Office Visit Adult [address] [phone] Abby Beach PA Insomnia, unspecified type (Primary Dx); Major depressive disorder, remission status unspecified, unspecified whether recurrent; Other diabetic neurological complication associated with type 2 diabetes mellitus ([facility]); Type 2 diabetes mellitus with diabetic polyneuropathy, without long-term current use of insulin ([facility]); Hair thinning; Hyperlipidemia LDL goal <100 from Last 3 Months Immunizations Name Administration Dates Next Due Influenza Quadravalent, MDCK , 0.5ml, preservative free (Flucelvax) 6mo and older 02/27/2023 Influenza trivalent, with pr eservative (Fluzone; Afluria) 6mo and older 04/26/2020 Influenza, Unspecified 04/26/2020 Meningococcal Polysaccharide 11/16/2000 Pneumococcal conjugate 20 va lent (Prevnar 20, PCV 20) 2mo and older 11/24/2021 Medical History Medical History Date Comments History of heroin abuse (CMS/HCC) 04/02/2015 Now on suboxone Social History Tobacco Use Types Packs/Day Years Used Date Smoking Tobacco: Never Assessed Sex and Gender Information Value Date Recorded Sex Assigned at Not on file Gender Identity Not on file Sexual Orientation Not on file Job Start Date Occupation Industry Not on file Not on file Not on file Obstetrics History Last Filed Vital Signs Vital Sign Reading Time Taken Comments Blood Pressure 120/70 03/19/2024 10:02 AM EST Pulse 80 03/19/2024 10:02 AM EST Temperature 36.3 ??C (97.3 ??F) 03/19/2024 1 0:02 AM EST Respiratory Rate - - Oxygen Saturation 94% 03/19/2024 10: 02 AM EST Inhaled Oxygen Concentration - - Weight 72.1 kg (158 lb 14.4 oz) 024 10:02 AM EST Height 160 cm (5' 2.99 ) 03/19/2024 10: 02 AM EST Body Mass Index 28.16 03/19/2024 10:02 AM EST Plan of Treatment Upcoming Encounters Date Type Department Care Team (Late st Contact Info) Description 06/06/2024 10:30 AM EST Office Visit Adult Medicine [address] [phone] Kyle Chavez MD [address] [place] [id number] 09/09/2024 2:30 PM EDT Office Visit Adult Medicine [address] [phone] Kyle Chavez MD [address] [place] [address] [phone] Health Maintenance Due Date Last Done Comments Breast Cancer Screening 1963 Diabetes: Annual Retina Eye Exam 1973 Hepatitis A Vaccines (1 of 2 - Risk 2-dose series) 1982 Zoster Vaccines (1 of 2) 1982 Cervical Cancer Screening: Pap Smear 10/09/2016 10/09/2013 Colorectal Cancer Screening: Stool Based Tests (FOBT/FIT) 04/09/2022 Depression Screening 04/09/2022 HIV Screening 04/09/2022 Medicare Annual Wellness Visit 04/09/2022 Social Influencers of Health Screening 04/09/2022 Hepatitis B Vaccines (1 of 3 - Risk 3-dose series) 2023 RSV Immunization Patients 60+ Years Old (1 - Risk 60-74 years 1-dose series) 2023 COVID-19 Vaccine ( - season) 2023 11/24/2021, 04/07/2021, 09/21/2020, Additional history exists Influenza Vaccine (#1) 2023 , 04/26/2020, 04/26/2020 Diabetes: Blood Sugar Control Test (HGBA1C) 07/24/2024 01/25/2024, 01/25/2024, 09/07/2023 Diabetes: Annual GFR (Glomerular Filtration Rate) 09/06/2024 09/07/2023, 09/07/2023, 11/15/2022, Additional history exists Diabetes: Annual Foot Exam 11/20/2024 11/21/2023 Diabetes: Annual Urine Albumin-Creatinine Ratio (uACR) 01/24/2025 01/25/2024 Cholesterol Screening (Lipid Panel) 01/24/2029 01/25/2024, 01/25/2024, 09/07/2023 DTaP,Tdap,and Td Vaccines (2 - Td or Tdap) 11/25/2031 11/24/2021 Meningococcal ACWY Vaccine Aged Out 11/16/2000 N o longer eligible based on patient's age to complete this topic Hepatitis C Screening Completed 05/28/2015 Colorectal Cancer Screening: Colonoscopy Discontinued 04/06/2017 Pneumococcal Vaccine: Pediatrics (0 to 5 Years) and At-Risk Patients (6 to 64 Years) Completed 11/24/2021 HIB Vaccines Aged Out No longer eligi ble based on patient's age to complete this topic HPV Vaccines Aged Out No longer eligi ble based on patient's age to complete this topic IPV Vaccines Aged Out No longer eligi ble based on patient's age to complete this topic MMR Vaccines Aged Out No longer eligi ble based on patient's age to complete this topic RSV Immunization Patients Under 20 months Aged Out No longer eligible based on patient's age to complete this topic Varicella Vaccines Aged Out No longer eligible based on patient's age to complete this topic Procedures Procedure Name Priority Date/Time Associated Diagnosis Comments URINE ALBUMIN CREATININE RATIO Routine 01/25/2024 HEMOGLOBIN A1C Routine 01/25/2024 LIPID PANEL Routine 01/25/2024 DIABETES FOOT EXAM Routine 11/21/2023 ANNUAL BMP BLOOD TEST Routine 09/07/2023 COLONOSCOPY Routine 04/06/2017 HEPATITIS C SCREENING Routine 05/28/2015 PAP SMEAR Routine 10/09/2013 from Last 3 Months or Most Recently Relevant to Health Maintenance Results * Urine Albumin Creatinine Ratio (01/25/2024) [facility]ologist [facility] Urine Albumin Creatinine Ratio abstracted Historical Provider MD RAF ADKINS E * Hemoglobin A1c (01/25/2024) Pathologist [facility] Hemoglobin A1C 6.3 6.5 % Blood Venous blood specimen / Unknown Historical Provider LAB BLOOD ORDERAB LES * (ABNORMAL) Lipid panel (01/25/2024) Pathologist [facility] LDL/HDL Ratio 5(A) 0 - 4 Triglycerides 336(A) 0 - 150 mg/dL Cholesterol 188 0 - 200 mg/dL HDL 35(A) 40 mg/dL LDL Cholesterol 86 0 - 100 mg/dL Blood Venous blood specimen / Unknown Historical Provider LAB BLOOD ORDERAB LES * Diabetes Foot Exam (11/21/2023) Pathologist [facility] Diabetes: Annual Foot Exam abstracted Historical Provider [facility] * Annual BMP Blood Test (09/07/2023) [facility] Annual BMP Blood Test abstracted Historical Provider [facility] * Colonoscopy (04/06/2017) [facility] Colonoscopy no interpretation , abstracted Anatomical Region Laterality Modality Other Historical Provider [facility] * Hepatitis C Screening (05/28/2015) [facility] Hepatitis C Screening abstracted Historical Provider [facility] * Pap Smear (10/09/2013) [facility] Pap smear no interpretation , abstracted [facility] from Last 3 Months or Most Recently Relevant to Health Maintenance Care Teams Digital Media Intern Relationship Specialty Start Date End Date Kyle Chavez MD PCP - General Internal Medicine 11/11/19
--- OUTSIDE RECORDS SUMMARY | 2024-05-29 15:15 | XMS_ITS | Encounter Summary ---
Author Organization [facility] Address [address] [place] [address] Care Team Providers Care Manager Compliance Name Role Phone Bravo Edwards MD, PHD Unavailable Unava Kyle King MD Primary Care Provider [phone] Encounter Details Date Type Department Care Team Description 06/06/2023 Pt. Non Urgent Medical Question Adult Medicine [address] [address] Kyle Chavez MD [address] [place] [phone] Social History Tobacco Use Types Packs/Day Years [...] Miscellaneous Notes * Telephone Encounter - Tamie Collin - 06/06/2023 2:17 PM ESTFrom: Perla Dixon To: Jose Chavez Sent: 06/06/2023 2:09 PM EST Subject: Appointment The hospital is packed. My brother -in-law went in today for a hip replacement and my sister could not believe how many people were in the ER and urgent care on [facility] has been having a 5-hour wait. So I would like to see a doctor please. documented in this encounter Plan of Treatment Not on file documented as of this encounter Visit Diagnoses Not on filedocumented in this encounter Care Teams Manager Compliance Relationship Specialty Start Date End Date Kyle Chavez MD [address] [place] [address] PCP - General Internal Medicine 11/25/22 Bravo Edwards MD, PHD Specialist Neurosurgery 06/10/21 documented as of this encounter
--- OUTSIDE RECORDS SUMMARY | 2024-05-29 15:15 | XMS_ITS | Encounter Summary ---
Author Organization [facility] Address [address] [place] [address] Care Team Providers Care Bottom Turning Lathe Turner Name Role Phone Bravo Edwards MD, PHD Unavailable Unava Kyle King MD Primary Care Provider [phone] Encounter Details Date Type Department Care Team Description 01/16/2023 Pt. Non Urgent Medical Question Adult Medicine [address] [address] Kyle Chavez MD [address] [place] [phone] Social History Tobacco Use Types Packs/Day Years [...] encounter Miscellaneous Notes * Telephone Encounter - Rosalie Lyles M.A. 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 Iwas let go enrique I missed two appointments one when I was up and leaves with my broken leg and the second one enrique I'm homeless now. And I lost my phone. Can someone please call me at [phone] Jaunyou documented in this encounter Plan of Treatment Not on file documented as of this encounter Visit Diagnoses Not on filedocumented in this encounter Care Teams Bottom Turning Lathe Turner Relationship Specialty Start Date End Date Kyle Cahvez MD [address] [place] [address] PCP - General Internal Medicine 11/25/22 Bravo Edwards MD, PHD Specialist Neurosurgery 06/10/21 documented as of this encounter
--- OUTSIDE RECORDS SUMMARY | 2024-05-29 15:15 | XMS_ITS | Encounter Summary ---
Author Organization [facility] Address [address] [place] [address] Care Team Providers Care Scallop Cutter Name Role Phone Bravo Edwards MD, PHD Unavailable Unava Kyle King MD Primary Care Provider [phone] Reason for Visit * Reason Onset Date Comments Mychart Rx Refill 11/25/2022 Encounter Details Date Type Department Care Team Description 11/25/2022 Pt. Non Urgent Medical Question Adult Medicine [address] [phone] Kyle Chavez MD [address] [place] [address] [phone] Social History Tobacco Use Types Packs/Day Years [...] as of this encounter Progress Notes * Shae Payan M.A. - 11/25/2022 9:46 AM EDT ERIKA 09/21/2022 F/U appt 02/27/2023 Lab Results Component Value Date NA 138 09/21/2022 K 4.3 09/21/2022 CO2 26 09/21/2022 CL 105 09/21/2022 BUN 16 09/21/2022 CREAT 0.54 09/21/2022 GLU 108 09/21/2022 CA 9.2 09/21/2022 GFR 106 09/21/2022 Lab Results Component Value Date ALB 3.7 09/13/2022 SGOT 25 09/13/2022 SGPT 31 09/13/2022 TBILI 0.2 09/13/2022 ALKPHOS 64 09/13/2022 TP 6.9 09/13/2022 documented in this encounter Miscellaneous Notes * Telephone Encounter - Manasa Longo M.A. - 11/25/2022 7:11 AM EDTFrom: Perla Dixon To: Jose Chavez Sent: 11/25/2022 6:16 AM EDT Subject: Lyrica Please send [facility] [place] I will be there when they open. I have an appointment right after I go to [facility]. Thank you documented in this encounter Plan of Treatment Not on file documented as of this encounter Visit Diagnoses Not on filedocumented in this encounter Care Teams Scallop Cutter Relationship Specialty Start Date End Date Kyle Chavez MD [address] [place] [address] PCP - General Internal Medicine 11/25/22 Bravo Edwards MD, PHD Specialist Neurosurgery 06/10/21 documented as of this encounter
--- OUTSIDE RECORDS SUMMARY | 2024-05-29 15:15 | XMS_ITS | Encounter Summary ---
Author Organization [facility] Address [address] [place] [address] Care Team Providers Care Microsoft Windows Engineer Name Role Phone Kyle Chavez MD Primary Care Provider [phone] Bravo Edwards MD, PHD Unavailable [facility], Pcp Primary Care Provider [facility] Kyle Chavez MD Primary Care Provider [phone] Encounter Details Date Type Department Care Team Description 12/01/2020 Orders Only Adult Medicine [address] [address] Mini Breen PA Spinal stenosis of cervical region; Abnormal brain MRI Social History Tobacco Use Types Packs/Day Years [...] have Coronavirus / COVID-19? No / Unsure 11/13/2020 11:27 AM EDT documented as of this encounter Plan of Treatment Not on file documented as of this encounter Procedures Procedure Name Priority Date/Time Associated Diagnosis Comments MRI OF CERVICAL SPINE NO CONTRAST Routine 11/21/2020 Spinal stenosis of cervical region MRI OF BRAIN NO CONTRAST Routine 11/21/2020 Abnormal brain MRI documented in this encounter Results * MRI OF BRAIN NO CONTRAST (11/21/2020) Mini RAMSEY MRI Performing Organization Address [facility] Co de Phone Number [address] * MRI OF CERVICAL SPINE NO CONTRAST (11/21/2020) Mini RAMSEY MRI Performing Organization Address [facility] Co de Phone Number [place] [phone] [facility] documented in this encounter Visit Diagnoses Diagnosis Spinal stenosis of cervical region Spinal stenosis in cervical region Abnormal brain MRI Nonspecific (abnormal) findings on radiological and other examination of skull and head documented in this encounter Care Teams Microsoft Windows Engineer Relationship Specialty Start Date End Date Kyle Chavez MD [address] [place] [phone] PCP - General Internal Medicine 11/11/19 11/21/22 [facility] Pcp [address] [place] [address] PCP - General Internal Medicine 11/22/22 11/24/22 Kyle Chavez MD [address] [place] [address] PCP - General Internal Medicine 11/25/22 Bravo Edwards MD, PHD [address] [place] [address] Specialist Neurosurgery 06/10/21 documented as of this encounter
--- OUTSIDE RECORDS SUMMARY | 2024-05-29 15:16 | XMS_ITS | Encounter Summary ---
Author Organization [facility] Address [address] [place] [address] Care Team Providers Care Pool Cleaner Name Role Phone Jean-Paul Carranza MD Primary Care Provider Unavail Kyle Camejo MD Primary Care Provider [phone] Bravo Edwards MD, PHD Unavailable [facility], Pcp Primary Care Provider UnavailKyle Putnam MD Primary Care Provider Reason for Visit * Reason Onset Date Comments medication problems 10/11/2019 Encounter Details Date Type Department Care Team Description 10/11/2019 Telephone Adult Medicine [address] [address] Rosa Hanson PA-C [address] [place] [address] [phone] medication problems Social History Tobacco Use Types Packs/Day Years [...] encounter Miscellaneous Notes * Telephone Encounter - Brennon Spring M.A. - 10/11/2019 1:11 PM EDT Pt is aware of msg * Telephone Encounter - Rosa Hanson PA-C - 10/11/2019 12:35 PM EDT Lidocaine gel is sent to pharmacy. As I mentioned to patient yesterday, she will be following with podiatry. At this time, will refill lidocaine patch however further refills will have to come from podiatry. Lyrica will stay at its current dose at 25 mg twice daily. Please inform patient. * Telephone Encounter - Nancy Saunders M.A. - 10/11/2019 12:24 PM EDT Spoke with pt, she states at visit yesterday you said you would prescribe the lidocaine patch, diclofenac gel and lyrica. However she also states you also discussed possibly going up on the lyrica to50 mg?? rx's are pended, you will need to adjust the lyrica if changing dose * Telephone Encounter - Nehal Espionza - 10/11/2019 10:30 AM EDT Who is calling? The patient Name of the medication fluticasone 50 MCG/ACT nasal spray, glucose monitoring kit (FREESTYLE) monitoring kit, pt states Rosa also mentioned regarding pain patch and gel What is the specific problem or interaction? Alisha have not received them - pt requests CB regarding this If the patient is having a problem with taking the med - how long has the problem been going on? N/A documented in this encounter Plan of Treatment Not on file documented as of this encounter Visit Diagnoses Diagnosis Plantar fasciitis of right foot Plantar fascial fibromatosis Pain in right foot Pain in limb documented in this encounter Care Teams Pool Cleaner Relationship Specialty Start Date End Date Jean-Paul Carranza MD PCP - General Internal Medicine 06/04/18 11/10/19 Kyle Chavez MD [address] [place] [address] PCP - General Internal Medicine 11/11/19 11/21/22 [facility], Pcp [address] [place] [address] PCP - General Internal Medicine 11/22/22 11/24/22 Kyle Chavez MD [address] [place] [address] PCP - General Internal Medicine 11/25/22 Bravo Edwards MD, PHD [address] [place] [id number] Specialist Neurosurgery 06/10/21 documented as of this encounter
--- OUTSIDE RECORDS SUMMARY | 2024-05-29 15:16 | XMS_ITS | Encounter Summary ---
Author Organization [facility] Address [address] [place] [address] Care Team Providers Care Tele Marketing Executive Name Role Phone Amy Hernandez MD Primary Care Provider Unavail able Jean-Paul Carranza MD Primary Care Provider Unavail able Kyle Chavez MD Primary Care Provider [phone] Bravo Edwards MD, PHD Unavailable [facility], Pcp Primary Care Provider Unavailabl e Kyle Chavez MD Primary Care Provider [phone] Reason for Referral * Radiology Services (Routine) - Authorized/Booked Specialty Diagnoses / Procedures Referred By Minerva pina Referred To Contact Radiology Diagnoses Chronic right-sided low back pain with right-sided sciatica Procedures MRI OF LUMBAR SPINE W/WO CONTRAST MRI OF LUMBAR SPINE NO CONTRAST Martha Hopkins PA-C [address] [place] [address] Mri/[address] [address] Referral ID Status Reason Start Date Expiration Date V isits Requested Visits Authorized [facility] [id number] Authorized/ Booked 03/13/2018 05/13/2018 1 1 * Radiology Services (Routine) - Closed Specialty Diagnoses / Procedures Referred By Minerva pina Referred To Contact Radiology Diagnoses Abnormal head CT Procedures MRI OF BRAIN AND FURTHER SEQUENCES W/WO CON CONTRAST MRI OF BRAIN Martha Hopkins PA-C [address] [place] [address] Mri/[place] [address] [place] [address] Referral ID Status Reason Start Date Expiration Date V isits Requested Visits Authorized [id number] Closed 03/13/2018 06/10/2018 1 1 * Radiology Services (Routine) - Closed Specialty Diagnoses / Procedures Referred By Contollie t Referred To Contact Radiology Diagnoses Cervical radiculopathy Procedures MRI OF CERVICAL SPINE NO CONTRAST Martha Hopkins PA-C [address] [place] [address] Mri/[place] [address] [place] [address] Referral ID Status Reason Start Date Expiration Date V isits Requested Visits Authorized [id number] Closed 07/16/2018 09/15/2018 1 1 Reason for Visit * Reason Onset Date Comments Testing 03/12/2018 Encounter Details Date Type Department Care Team Description 03/12/2018 Telephone Radiology - [place] [address] [place] [id number] Martha Hopkins PA-C Testing Social History Tobacco Use Types Packs/Day Years [...] encounter Miscellaneous Notes * Telephone Encounter - Jemal Jeong M.A. - 03/16/2018 1:26 PM EST Spoke with someome in radiology says that patient can have MRI done however the order is still pending waiting on insurance to approve it, patient can't get booked until it's done pending, also called patient no response, left message to call office back. * Telephone Encounter - Martha Hopkins PA-C - 03/16/2018 12:38 PM EST If our radiology department as well as Dr. Sofia's office states it is okay for patient to undergo MRI she should have MRI instead of CAT scan. Please inform her of this and get this scheduled. Orders have been placed. If patient has any further concerns regarding this she will need an office visitand come in to discuss. * Telephone Encounter - Jemal Jeong M.A. - 03/15/2018 4:55 PM EST Spoke with nurse and states she haven't been seen there since 2015, and also was told thatpatient is ok to get MRI. Please advise. * Telephone Encounter - Martha Hopkins PA-C - 03/13/2018 4:25 PM EST Should attempt to at least get brain MRI. Can you please try and contact patient's neurosurgeon to see if they feel as though they would even find a CAT scan helpful or what they be able to meet withher before imaging to be able to discuss. I know often this is not possible. It appears patient in the past of seeing Dr. Sofia * Telephone Encounter - Nessa Weeks - 03/13/2018 12:19 PM EST Jimmy states that she called and they said that she can have an MRI but won't be a clear image. States surgeon laughed at the last one she had and ended up doing an xray . She also is scheduled for CT scans, does Mratha want CT Scan or just MRI as it will take 14 days for insurance approval for MRI. * Telephone Encounter - Martha Hopkins PA-C - 03/13/2018 10:56 AM EST Ok noted, will await return call * Telephone Encounter - Jemal Jeong M.A. - 03/13/2018 10:45 AM EST Spoke with patient and states that she can not have MRI done due to her having wire, I explained that with the titanium rods she still can have an MRI, patient said She's going to call her surgeon first to double check then call back. * Telephone Encounter - Martha Hopkins PA-C - 03/13/2018 8:34 AM EST MRI orders palced. Please inform patient to contact our radiology department to schedule * Telephone Encounter - Ramila Obrien - 03/12/2018 1:17 PM EST Don Thomas, I spoke with the MRI dept concerning all the CT orders. They stated that with Titanium rods, the pt is still able to have MRI's. The Ct of brain should definitely be an MRI, that's what was recommended from the prior CT order. And cspines are better with MRI. Please advise. Thank you, Radiolgy documented in this encounter Plan of Treatment Not on file documented as of this encounter Results * MRI OF CERVICAL SPINE NO CONTRAST (08/15/2018 3:35 PM EDT) 08/16/2018 4:38 PM EDT Impressions [facility] - 08/16/2018 4:51 PM EDT IMPRESSION: 1. Significantly motion limited examination. 2. Multilevel discogenic and degenerative changes resulting in severe spinal canal stenosis at C3-4 and C4-5 with moderate to severe spinal canal stenosis at C5-6 and C6-7. Associated altered cervical cord contour with effacement of CSF signal surrounding the cervical cord at several levels. Evaluation for abnormal intramedullary signal is significantly limited due to patient motion. Neurosurgical consultation recommended. 3. Multilevel bilateral neural foraminal narrowing, severe on the left at C3-4 with severe bilateral, right greater than left, neural foraminal narrowing at C4-5. Additional moderate to severe neural foraminal narrowing, as above. Possible contact of disc material or osteophytes and the bilateral C4, C5, C6 and C7 nerve roots, as well as the C8 nerve root on the left. Correlation with radicular symptoms recommended. 4. Additional findings, as detailed above, including prominent adenoid hypertrophy and mucous retention cysts at the posterior nasopharynx. Narrative [facility] - 08/16/2018 4:51 PM EDT MRI CERVICAL SPINE WITHOUT CONTRAST Indication: Worsening neck pain with radicular symptoms, right shoulder pain radiating down the right arm and hand. Comparison: None available. Technique: Multiplanar, multisequence MRI of the cervical spine was performed without IV contrast. Per technologist, patient fell asleep multiple times during the examination. Several sequences are motion limited, even after head positioning with cushions. FINDINGS: All submitted sequences are motion degraded, limiting examination. The visualized posterior fossa structures are unremarkable. There is altered cervical cord contour at several levels, most severe from C3-4 through C6-7, due to adjacent discogenic and degenerative changes abutting the ventral and dorsal aspects of the cervical cord. Evaluation for focal intramedullary signal abnormality is markedly limited due to motion degraded images. There is loss of the expected T2 intervertebral disc signal at all levels throughout the cervical spine, representing multilevel disc degeneration. Loss of intervertebral disc height with adjacent endplate irregularity and Modic signal changes is most prominent at the C3-4 and C6-7 levels. Straightening of expected lordosis may be positional or due to muscle spasm. There is multilevel bilateral facet hypertrophy contributing to degenerative 3.5 mm retrolisthesis of C3 on C4 with additional minimal retrolisthesis of C4 on C5, C5 on C6, and C6 on C7, somewhat exaggerated by posterior endplate spurring. No definite evidence of acute fracture or subluxation. Evaluation for bone marrow edema is limited on the sagittal STIR sequence due to significant patient motion. Evaluation of individual disc levels is as follows: At C2-C3: Posterior disc osteophyte complex, bilateral facet and uncovertebral hypertrophy result in [id number] spinal canal stenosis with mild bilateral, left greater than right, neural foraminal narrowing. At C3-C4: Degenerative retrolisthesis, posterior disc osteophyte complex, and bilateral facet/uncovertebral hypertrophy results in severe spinal canal stenosis with effacement of CSF signal dorsal and ventral to the cervical cord (axial series 601, image 29/40). Moderate to severe right and severe left neural foraminal narrowing with possible contact of disc material or osteophyte and the exiting bilateral C4 nerve roots. At C4-C5: Prominent posterior disc osteophyte complex, bilateral facet and uncovertebral hypertrophy result in severe spinal canal stenosis with effacement of CSF signal surrounding the cervical cord, which appears flattened (axial series 601, image 24/40). Severe bilateral, right greater than left, neural foraminal narrowing with probable mass effect upon the exiting bilateral C5 nerve roots. At C5-C6: Asymmetric left posterior disc osteophyte complex, bilateral facet and uncovertebral hypertrophy result in moderate to severe spinal canal stenosis with asymmetric narrowing of the left lateral recess. One combined with dorsal ligamentous hypertrophy, the AP dimension of the canal measures approximately 6 mm. Moderate to severe bilateral neural foraminal narrowing with possible contact of disc material or osteophyte and the exiting bilateral C6 nerve roots. At C6-C7: Asymmetric left posterior disc osteophyte complex, bilateral facet and uncovertebral hypertrophy results in moderate to severe spinal canal stenosis with indentation of the ventral cervical cord. There is narrowing of both lateral recesses with moderate to severe bilateral neural foraminal narrowing. Possible contact of disc material or osteophytes and the exiting bilateral C7 nerve roots. Ovoid, T2 hyperintense, 3.8 mm possible synovial cyst along the medial aspect of the left C6/C7 facet joint (axial series 601, image 10/40) contributes to asymmetric narrowing of the left lateral recess. At C7-T1: Asymmetric left posterior disc osteophyte complex, bilateral facet and uncovertebral hypertrophy result in moderate spinal canal stenosis with moderate right and moderate to severe left neural foraminal narrowing. Evaluation of the paraspinal soft tissues is limited by patient motion. There is prominent adenoid hypertrophy at the posterior nasopharynx with T1/T2 hyperintense mucous retention cysts measuring up to 1.6 cm (sagittal series 401, image 10/17). Procedure Note Patricia Ch DO - 08/16/2018 MRI CERVICAL SPINE WITHOUT CONTRAST Indication: Worsening neck pain with radicular symptoms, right shoulderpain radiating down the right arm and hand. Comparison: None available. Technique: Multiplanar, multisequence MRI of the cervical spine wasperformed without IV contrast. Per technologist, patient fell asleep multiple times during theexamination. Several sequences are motion limited, even after head positioning with cushions. FINDINGS: All submitted sequences are motion degraded, limiting examination. The visualized posterior fossa structures are unremarkable. There isaltered cervical cord contour at several levels, most severe from C3-4 through C6-7, due toadjacent discogenic and degenerative changes abutting the ventral and dorsal aspects of thecervical cord. Evaluation for focal intramedullary signal abnormality is markedly limited due tomotion degraded images. There is loss of the expected T2 intervertebral disc signal at all levelsthroughout the cervical spine, representing multilevel disc degeneration. Loss ofintervertebral disc height with adjacent endplate irregularity and Modic signal changes is mostprominent at the C3-4 and C6-7 levels. Straightening of expected lordosis may be positional or dueto muscle spasm. There is multilevel bilateral facet hypertrophy contributing to degenerative3.5 mm retrolisthesis of C3 on C4 with additional minimal retrolisthesis of C4 on C5, C5 on C6,and C6 on C7, somewhat exaggerated by posterior endplate spurring. No definite evidenceof acute fracture or subluxation. Evaluation for bone marrow edema is limited on the sagittalSTIR sequence due to significant patient motion. Evaluation of individual disc levels is as follows: At C2-C3: Posterior disc osteophyte complex, bilateral facet anduncovertebral hypertrophy result in [id number] spinal canal stenosis with mild bilateral, leftgreater than right, neural foraminal narrowing. At C3-C4: Degenerative retrolisthesis, posterior disc osteophyte complex,and bilateral facet/uncovertebral hypertrophy results in severe spinal canal stenosiswith effacement of CSF signal dorsal and ventral to the cervical cord (axial series 601, image29/40). Moderate to severe right and severe left neural foraminal narrowing with possiblecontact of disc material or osteophyte and the exiting bilateral C4 nerve roots. At C4-C5: Prominent posterior disc osteophyte complex, bilateral facet anduncovertebral hypertrophy result in severe spinal canal stenosis with effacement of CSFsignal surrounding the cervical cord, which appears flattened (axial series 601, image24/40). Severe bilateral, right greater than left, neural foraminal narrowing with probable masseffect upon the exiting bilateral C5 nerve roots. At C5-C6: Asymmetric left posterior disc osteophyte complex, bilateralfacet and uncovertebral hypertrophy result in moderate to severe spinal canal stenosis withasymmetric narrowing of the left lateral recess. One combined with dorsal ligamentous hypertrophy,the AP dimension of the canal measures approximately 6 mm. Moderate to severe bilateral neuralforaminal narrowing with possible contact of disc material or osteophyte and the exitingbilateral C6 nerve roots. At C6-C7: Asymmetric left posterior disc osteophyte complex, bilateralfacet and uncovertebral hypertrophy results in moderate to severe spinal canal stenosis withindentation of the ventral cervical cord. There is narrowing of both lateral recesses with moderateto severe bilateral neural foraminal narrowing. Possible contact of disc material orosteophytes and the exiting bilateral C7 nerve roots. Ovoid, T2 hyperintense, 3.8 mm possible synovialcyst along the medial aspect of the left C6/C7 facet joint (axial series 601, image10/40) contributes to asymmetric narrowing of the left lateral recess. At C7-T1: Asymmetric left posterior disc osteophyte complex, bilateralfacet and uncovertebral hypertrophy result in moderate spinal canal stenosis with moderate rightand moderate to severe left neural foraminal narrowing. Evaluation of the paraspinal soft tissues is limited by patient motion.There is prominent adenoid hypertrophy at the posterior nasopharynx with T1/T2 hyperintensemucous retention cysts measuring up to 1.6 cm (sagittal series 401, image 10/17). IMPRESSION IMPRESSION: 1. Significantly motion limited examination. 2. Multilevel discogenic and degenerative changes resulting in severespinal canal stenosis at C3-4 and C4-5 with moderate to severe spinal canal stenosis at C5-6 andC6-7. Associated altered cervical cord contour with effacement of CSF signal surroundingthe cervical cord at several levels. Evaluation for abnormal intramedullary signal issignificantly limited due to patient motion. Neurosurgical consultation recommended. 3. Multilevel bilateral neural foraminal narrowing, severe on the left atC3-4 with severe bilateral, right greater than left, neural foraminal narrowing at C4- 5.Additional moderate to severe neural foraminal narrowing, as above. Possible contact of discmaterial or osteophytes and the bilateral C4, C5, C6 and C7 nerve roots, as well as the C8 nerveroot on the left. Correlation with radicular symptoms recommended. 4. Additional findings, as detailed above, including prominent adenoidhypertrophy and mucous retention cysts at the posterior nasopharynx. Martha Hopkins PA-C MRI [facility] * MRI OF BRAIN AND FURTHER SEQUENCES W/WO CON (05/17/2018 4:25 PM EST) 05/17/2018 4:59 PM EST Narrative [facility] - 05/17/2018 5:08 PM EST MRI of the brain without intravenous intravenous contrast. History worsening headaches. Gait instability. Examination was performed on 1.5 Jhoana magnet without administration of intravenous contrast followed by postcontrast study after administration of [address] scan obtained on 10/03/2014 was reviewed. There is no evidence of midline shift, there is no evidence of extra-axial blood the fluid collections. There are prominent sulci in the frontal lobes and widening of the sigmoid colon suspicious each could be due to some atrophic changes. There are multiple bright FLAIR signal white matter lesions mostly in the periventricular and deep white matter of both cerebral hemispheres. Most of them revealed low T1 signal suggestive of cystic degeneration. White matter lesions are perpendicular to the surface of the lateral ventricles. There is significant thinning of the corpus callosum which revealed no focal signal abnormalities. Most of the lesions revealed no restricted diffusion. One of the lesion in the left parietal lobe, axial image 144, series 301 revealed restricted diffusion. Images obtained after administration of intravenous contrast revealed ??no abnormal enhancing lesions. There is mucosal thickening in the ethmoid air cells. There is fluid in the right mastoid process. CONCLUSIONS: Multiple white matter lesions in both cerebral hemispheres, suspicious for multiple sclerosis. Differential diagnosis should include other infectious/inflammatory etiology including Lyme disease, vasculitis among the other etiologies. Cortical atrophy mostly involving the frontal lobes and sylvian fissures. Significant thinning of the corpus callosum. Additional findings in the ethmoid air cells and right mastoid process. Procedure Note Cara Villar MD - 05/17/2018 MRI of the brain without intravenous intravenous contrast. History worsening headaches. Gait instability. Examination was performed on 1.5 Jhoana magnet without administration ofintravenous contrast followed by postcontrast study after administration of 10 mL of Gad[address]ist.CT scan obtained on 10/03/2014 was reviewed. There is no evidence of midline shift, there is no evidence of extra-axialblood the fluid collections. There are prominent sulci in the frontal lobes and wideningof the sigmoid colon suspicious each could be due to some atrophic changes. There are multiplebright FLAIR signal white matter lesions mostly in the periventricular and deep white matterof both cerebral hemispheres. Most of them revealed low T1 signal suggestive of cysticdegeneration. White matter lesions are perpendicular to the surface of the lateral ventricles.There is significant thinning of the corpus callosum which revealed no focal signalabnormalities. Most of the lesions revealed no restricted diffusion. One of the lesion in the leftparietal lobe, axial image 144, series 301 revealed restricted diffusion. Images obtained after administration of intravenous contrast revealed noabnormal enhancing lesions. There is mucosal thickening in the ethmoid air cells. There is fluid inthe right mastoid process. CONCLUSIONS: Multiple white matter lesions in both cerebral hemispheres,suspicious for multiple sclerosis. Differential diagnosis should include otherinfectious/inflammatory etiology including Lyme disease, vasculitis among the other etiologies. Cortical atrophy mostly involving the frontal lobes and sylvian fissures.Significant thinning of the corpus callosum. Additional findings in the ethmoid air cells and right mastoid process. Martha Hopkins PA-C MRI [facility] documented in this encounter Visit Diagnoses Diagnosis Chronic right-sided low back pain with right-sided sciatica- Primary Abnormal head CT Nonspecific (abnormal) findings on radiological and other examination of skull and head Cervical radiculopathy Brachial neuritis or radiculitis nos Abnormal head CT Nonspecific (abnormal) findings on radiological and other examination of skull and head Cervical radiculopathy Brachial neuritis or radiculitis nos documented in this encounter Care Teams Tele Marketing Executive Relationship Specialty Start Date End Date Amy Hernandez MD PCP - General Internal Medicine 02/01/18 06/03/18 Jean-Paul Carranza MD PCP - General Internal Medicine 06/04/18 11/10/19 Kyle Chavez MD [address] [place] [id number] PCP - General Internal Medicine 11/11/19 11/21/22 [facility], Pcp [address] [place] [address] PCP - General Internal Medicine 11/22/22 11/24/22 Kyle Chavez MD [address] [place] [id number] PCP - General Internal Medicine 11/25/22 Bravo Edwards MD, PHD [address] [place] [address] Specialist Neurosurgery 06/10/21 documented as of this encounter
--- OUTSIDE RECORDS SUMMARY | 2024-05-29 15:16 | XMS_ITS | Encounter Summary ---
Author Organization [facility] Address [address] [place] [address] Care Team Providers Care Cork Wirer Name Role Phone Kyle Chavez MD Primary Care Provider [phone] Bravo Edwards MD, PHD Unavailable [facility] Pcp Primary Care Provider [facility] Kyle Chavez MD Primary Care Provider [phone] Encounter Details Date Type Department Care Team Description 10/04/2022 [facility] Medical Records [address] [place] [id number] Abstract, Provider Social History Tobacco Use Types [...] suspected to have Coronavirus/COVID-19? No / Unsure 09/21/2022 11:01 AM EDT documented as of this encounter Plan of Treatment Not on file documented as of this encounter Visit Diagnoses Not on filedocumented in this encounter Care Teams Cork Wirer Relationship Specialty Start Date End Date Kyle Chavez MD [address] [place] [id number] PCP - General Internal Medicine 7/13/20 7/24/23 [facility], Pcp [address] [place] [address] PCP - General Internal Medicine 11/22/22 11/24/22 Kyle Chavez MD [address] [place] [address] PCP - General Internal Medicine 11/25/22 Bravo Edwards MD, PHD [address] [place] [address] Specialist Neurosurgery 06/10/21 documented as of this encounter
--- OUTSIDE RECORDS SUMMARY | 2024-05-29 15:16 | XMS_ITS | Encounter Summary ---
Author Organization [facility] Address [address] [place] [address] Care Team Providers Care Clay Grinder Name Role Phone Kyle Chavez MD Primary Care Provider [phone] Bravo Edwards MD, PHD Unavailable [facility], Pcp [facility] Kyle Chavez MD Primary Care Provider [phone] Encounter Details Date Type Department Care Team Description 10/20/2021 Refill Adult Medicine [address] [phone] Kyle Chavez MD [address] [place] [address] [phone] Social History Tobacco Use Types Packs/Day Years [...] on filedocumented in this encounter Care Teams Clay Grinder Relationship Specialty Start Date End Date Kyle Chavez MD [address] [place] [address] [id number] PCP - General Internal Medicine 11/11/19 11/21/22 [facility] P[facility] [address] [place] [id number] PCP - General Internal Medicine 11/22/22 11/24/22 Kyle Chavez MD [address] [place] [address] PCP - General Internal Medicine 11/25/22 Bravo Edwards MD, PHD [address] [place] [address] Specialist Neurosurgery 06/10/21 documented as of this encounter
--- OUTSIDE RECORDS SUMMARY | 2024-05-29 15:16 | XMS_ITS | Encounter Summary ---
Author Organization [facility] Address [address] [place] [address] Care Team Providers Care Well Logging Captain Mud Analysis Name Role Phone Kyle Chavez MD Primary Care Provider [phone] Bravo Edwards MD, PHD Unavailable [facility], Pcp [facility] Chavez MD Primary Care Provider [phone] Reason for Visit * Reason Onset Date Comments Testing 09/25/2020 MRI OF BRAIN NO CONTRAST Encounter Details Date Type Department Care Team Description 09/25/2020 Telephone Adult Medicine [address] [phone] Kyle Chavez MD [address] [place] [address] [phone] Testing (MRI OF BRAIN NO CONTRAST) Social History Tobacco Use Types Packs/Day Years [...] encounter Miscellaneous Notes * Telephone Encounter - Mini Kelly PA-C - 09/25/2020 1:50 PM EDT Please continue * Telephone Encounter - Jemal Jeong M.A. - 09/25/2020 1:34 PM EDT MRI OF BRAIN NO CONTRAST was ordered 07/24/20, do you want to complete or cancel the order? documented in this encounter Plan of Treatment Not on file documented as of this encounter Visit Diagnoses Not on filedocumented in this encounter Care Teams Well Logging Captain Mud Analysis Relationship Specialty Start Date End Date Kyle Chavez MD [address] [place] [address] PCP - General Internal Medicine 11/11/19 11/21/22 [facility] Pcp [address] [place] [address] PCP - General Internal Medicine 11/22/22 11/24/22 Kyle Chavez MD [address] [place] [address] PCP - General Internal Medicine 11/25/22 Bravo Edwards MD, PHD [address] [place], [place] [phone] Specialist Neurosurgery 06/10/21 documented as of this encounter
--- OUTSIDE RECORDS SUMMARY | 2024-05-29 15:16 | XMS_ITS ---
Author Organization [facility] Address [address] [facility] [address] Care Team Providers Care Bindery Machine Operator Name Role Phone Cheko Chavez MD Primary Care Provider Julienne Cade Unavailable [phone] Allergies Allergen (clinical drug ingredient) Drug/Non Drug [...] (M20.41,M20.42), Preulcerative Skin Lesion(s) (L85.1 03/06/2024 Active Glycopyrrolate 2 MG as directed Orally [...] user? No Vital Signs Height 5ft3in in 05/29/2024 Weight 160 lbs 05/29/2024 BMI 28.34 kg/m2 05/29/2024 Blood pressure systolic 110 mm Hg 05/29/19 25 Blood pressure diastolic 70 mm Hg 025 Encounters Encounter Location Date Provider Diagnosis [facility] [address] [address] 05/29/2024 Julienne Pop Type 2 diabetes mellitus with polyneuropathy E11.42 and Tinea unguium B35.1 Assessments Encounter Date Diagnosis (ICD Code) Assessment Notes Treatment Notes Treatment Clinical Notes Section Notes 05/29/2024 Type 2 diabetes mellitus with polyneuropathy (ICD-10 - E11.42) 05/29/2024 Tinea unguium (ICD-10 - B35.1) 05/29/2024 Other Plan Of Treatment Next Appt Details Follow Up: 2 Months, Reason: Provider Name:Julienne rock, 08/21/2024 11:00:00 AM, [address] [place], [address], Procedure Notes * Category Sub-Category Detail Notes Debride Nail 6-10 Nail debridement Due to the cl inical pathology outlined in the exam findings, performance of this nail treatment is medically necessary as its management by an unskilled/untrained nonprofessional would put this patients foot and overall health at risk. Therefore, debridement to affected nail(s), as described in exam ( TA, T1, T2, T3, T4, T5, T6, T7, T8, T9, ), was performed exclusively by the physician of record to reduce/remove overall nail length, girth, thickness, subungual debris, and necrotic tissue, by manual and/or electrical means through the use of a nail nipper and/or dremel-type jewel grinder, to a more viable healthy nail plate or bed tissue 6-10 nails in total. Silver nitrate was used for any petechial bleeding as necessary. Definitive antifungal treatment options, both pharmaceutical and surgical, have been reviewed and discussed with the patient. The patient solely prefers the use of intermittent/as needed professional debridement services for their nail condition and understands the need for additional periodic treatments to maintain effectiveness in symptomatic relief - 15725 Keratoma Treatment Parring or Cutting o f Benign Hyperkeratotic Lesion(s) (-57) More than 4 Lesions - Due to the at risk nature of the patients medical condition as documented in the exam findings, performance of this keratoderma treatment is medically necessary as its management by an unskilled/untrained nonprofessional would put this patients foot and overall health at risk. Therefore, the benign hyperkeratotic lesions, ( 6) in total, locations as stated and described in the exam ( TA T1 T2 T5 SUB MTH (s), 1 B/L), were pared, and/or cut utilizing a sterile 15 blade, tissue nippers, and/or power dremel instrumentation by the physician of record - 27048 Progress Notes * Rehana TROTTERhyDOB:1964 (59 yo F)Acc No.[id number]:05/29/2024 Progress Note Patient:?Perla TROTTER Provider:?Julienne Pop DPM :1965???Age:59 Y???Sex:Female D ate:05/29/2024 Address:[address] [place] [address] [facility] [place] [place] Pcp:Cheko Chavez MD Subjective: * Chief Complaints: * ???At Risk FootcarePainful N ail(s) aggrevated by shoes and causing difficulty standing/walking. * HPI: ???At Risk footcare:?Pt States Last PCP Visit:?Date?03/19/2024 * ROS:?General/Constitutional:?Nausea?denies, denies.?Vomiting?denies, denies.?Hunger Thirst?denies, denies.?Loss appetite?denies, denies.?Chills?denies, denies.?Fatigue?denies, denies.?Fever?denies, denies.?Night Sweats denies, denies.?Unexplained weight loss?denies, denies.?Unexplained weight gain?denies, denies.?HEENTM:?Dentures?admits, admits.?Dizziness?admits, admits.?Glasses/contacts?admits, admits.?Retinopathy?denies, denies.?Blurred/double vision?denies, denies.?TMJ?denies, denies.?Discharge/drainage?denies, denies.?Implants?denies, denies.?Sore throat?denies, denies.?Dental implants?admits, admits.?Hard of hearing ?denies, denies.?Difficulty chewing/swallowing/speaking?denies, denies.?Nose bleeds?denies, denies.?Sore mouth?denies, denies.?Respiratory:?On Oxygen?denies, denies.?Pneumonia/pleurisy?denies, denies.?Bronchitis?denies, denies.?Emphysema?denies, denies.?Coughing?denies, denies.?Cough blood?denies, denies.?Shortness of breath?denies, denies.?Wheezing?denies, denies.?Cardiovascular:?Pacemaker?denies, denies.?MVP?denies, denies.?WPW?denies, denies.?CHF?denies, denies.?Heart attack?denies, denies.?Septal defect?denies, denies.?Rapid beat?denies, denies.?Chest pain ?denies, denies.?Atrial Fib.?denies, denies.?Murmur/Palpitations?denies, denies.?Gastrointestinal:?Hemorrhoids?denies, denies.?Stomach/Abdominal pain?denies, denies.?Dark blood stool?denies, denies.?Irritable bowel ?denies, denies.?Constipation?denies, denies.?Diarrhea?denies, denies.?Hematology:?Swelling?denies, denies.?Clots?denies, denies.?Varicose Veins?denies, denies.?Bruising?admits, admits.?Bleeding problem?denies, denies.?Genitourinary:?Blood urine?denies, denies.?Frequent/Painfu/urination/bladder control?denies, denies.?Kidney stones?denies, denies.?Infection (UTI)?denies, denies.?Nephropathy?denies, denies.?sex trans dis (STD)?denies, denies.?Prostate?denies, denies.?Musculoskeletal:?Hammertoes?denies, denies.?Bunions?denies, denies.?Back Pain?admits, admits.?Muscle Cramps/ Resting?admits, admits.?Muscle cramps / walking?denies, denies.?Generalized aches and pains?admits, admits.?Weakness?denies, denies.?Integ.:?Galvez?denies, denies.?Scars?admits, admits.?Corns/calluses?admits, admits.?Ingrown nails?denies, denies.?Painful nails?denies, denies.?Open Sores?denies, denies.?Rashes?denies, denies.?Neurologic:?Difficulty sleeping?admits, admits.?Brain disorder?denies, denies.?Numbness?admits, admits.?Balance trouble?admits, admits.?Confusion?denies, denies.?Fainting/blackouts?denies, denies.?Tingling?admits, admits.?Tremors?denies, denies.? * Medical History:? * Surgical History:?back surge ry x4 section 09/11/1991mastoidectomy ear tubes Dental Implant 05/2021Neck fusion * Hospitalization/Major Diagno stic Procedure:?Denies Past Hospitalization * Family History:?Mother: dece ased, kidney/liver disease, diagnosed with Other malignant neoplasm of unspecified site, Diabetic - NIDDM, Unspecified essential hypertension, Family history of arthritis.?Father: .? * Social History:?Tobacco Use:?Tobacco Use/Smoking?Are you a:?current smoker ?When did you start smoking??05/01/1991 ?Additional Findings: Tobacco User?Light cigarette smoker ((1-9 cigs/day) ?Tobacco use other than smoking?Are you an other tobacco user??No ???Miscellaneous:?Caffeine: yes, 4 cups per day. ?Children: yes, 2. ?Exercise: no. ?Marital status: . ?Occupation: Disability. * Medications:?TakingAmmonium Lactate 12 % Cream 1 application to affected area Externally to feet Twice a day Effexor , Notes to Pharmacist: 350mgFamotidine 20 MG Tablet 1 tablet at bedtime as needed Orally Once a day Glycopyrrolate 2 MG Tablet as directed Orally Lyrica 150 MG Capsule 1 capsule Orally Once a day Suboxone , Notes to Pharmacist: 8.2mg 2 tablets 1x daytraZODone HCl 100 MG Tablet 1 tablet at bedtime Orally Once a day Extra Depth Orthopedic Shoes (1 Pair) with Customized Heat Molded Multidensity Innersoles (3 Pair) as directed Dx: NIDDM/Polyneuropathy (E11.42), Hammertoe Foot Deformity (M20.41,M20.42), Preulcerative Skin Lesion(s) (L85.1 Extra Depth Orthopedic Shoes (1 Pair) with Customized Heat Molded Multidensity Innersoles (3 Pair) as directed Dx: NIDDM/Polyneuropathy (E11.42), Hammertoe Foot Deformity (M20.41,M20.42), Preulcerative Skin Lesion(s) (L85.1 Taking Ammonium Lactate 12 % Cream 1 application to affected area Externally to feet Twice a day Taking Effexor , Notes to Pharmacist: 350mgTaking Famotidine 20 MG Tablet 1 tablet at bedtime as needed Orally Once a day Taking Glycopyrrolate 2 MG Tablet as directed Orally Taking Lyrica 150 MG Capsule 1 capsule Orally Once a day Taking Suboxone , Notes to Pharmacist: 8.2mg 2 tablets 1x dayTaking traZODone HCl 100 MG Tablet 1 tablet at bedtime Orally Once a day Taking Extra Depth Orthopedic Shoes (1 Pair) with Customized Heat Molded Multidensity Innersoles (3 Pair) as directed Dx: NIDDM/Polyneuropathy (E11.42), Hammertoe Foot Deformity (M20.41,M20.42), Preulcerative Skin Lesion(s) (L85.1 Taking Extra Depth Orthopedic Shoes (1 Pair) with Customized Heat Molded Multidensity Innersoles (3 Pair) as directed Dx: NIDDM/Polyneuropathy (E11.42), Hammertoe Foot Deformity (M20.41,M20.42), Preulcerative Skin Lesion(s) (L85.1 Not-Taking/PRNAtivan 1 MG Tablet 1 tablet at bedtime as needed Orally Once a day Medication List reviewed and reconciled with the patientNot-Taking/PRN Ativan 1 MG Tablet 1 tablet at bedtime as needed Orally Once a day Medication List reviewed and reconciled with the patient * Allergies:?Cefaclor: sickCod eine: itchyAugmentin: vomitingVicodin: vomitingSpinal Injectionyes[Allergies Verified] Objective: * Vitals:?Ht: 5ft3in, Wt:160, BMI:28.34, Shoe size: 7.5, BP:110/70mm Hg, BS: not taken, Ht-cm: 160.02 cm, Wt-k.58 kg. * ???Past Orders: ???Lab:HEMOGLOBIN A1C (GLYCO HEMOGLOBIN) (Order Date - 03/01/2024) (Collection Date & Time - 03/01/2024 11:07 AM) ? Value Reference Range ?HEMOGLOBIN A1C % (HH) 6.2 * Examination: ???Ophthalmology Referral: ?DIABETES EYE EXAM?Neurological: [...] no pain on palpation due to neuropathy, TA, T1, T2, T3, T4, T5, T6, T7, T8, T9.?Dermatologic: ?SKIN FINDINGS:? Skin exam reveals Keratotic lesion(s) located at TA T1 T2 T5 SUB MTH (s), 1 B/L.? Assessment: * Assessment: 1.?Tinea unguium - B35.1???2 .?Type 2 diabetes mellitus with polyneuropathy - E11.42 (Primary)??? Plan: * Treatment: * Procedures:?Debride Nail 6-10:?Nail debridement?Due to the clinical pathology outlined in the exam findings, performance of this nail treatment is medically necessary as its management by an unskilled/untrained nonprofessional would put this patients foot and overall health at risk. Therefore, debridement to affected nail(s), as described in exam ( TA, T1, T2, T3, T4, T5, T6, T7, T8, T9, ), was performed exclusively by the physician of record to reduce/remove overall nail length, girth, thickness, subungual debris, and necrotic tissue, by manual and/or electrical means through the use of a nail nipper and/or dremel-type jewel grinder, to a more viable healthy nail plate or bed tissue 6- 10 nails in total. Silver nitrate was used for any petechial bleeding as necessary. Definitive antifungal treatment options, both pharmaceutical and surgical, have been reviewed and discussed with the patient. The patient solely prefers the use of intermittent/as needed professional debridement services for their nail condition and understands the need for additional periodic treatments to maintain effectiveness in symptomatic relief - 63352.?Keratoma Treatment:?Parring or Cutting of Benign Hyperkeratotic Lesion(s)?(-57) More than 4 Lesions - Due to the at risk nature of the patients medical condition as documented in the exam findings, performance of this keratoderma treatment is medically necessary as its management by an unskilled/untrained nonprofessional would put this patients foot and overall health at risk. Therefore, the benign hyperkeratotic lesions, ( 6) in total, locations as stated and described in the exam (?TA?T1?T2?T5?SUB MTH (s), 1 B/L), were pared, and/or cut utilizing a sterile 15 blade, tissue nippers, and/or power dremel instrumentation by the physician of record - 16666.? * Procedure Codes:?85288 DEBRI DE NAIL, 6 OR MORE, Modifiers: XS 21249 TRIM SKIN LESIONS, OVER 4, Modifiers: XS * Follow Up:?2 Months * Images: * Sign off status: Completed true * Provider:?Julienne Pop DPM Date:? Generated for Lia sigala/Billy/Kelsi on:?05/29/2024 03:16 PM EST History and Physical Notes * [...] 1 B/L Ophthalmology Referral DIABETES EYE EXAM Procedu re Performed:: Yes ?Date of Exam Performed: 06/01/2023 Findings of Diabetic Eye Exam:: no retin opathy Nails NAILS are: Elongated, overg rown, dystrophic, lytic, greater than 3mm thick, discolored and friable with crumbly malodorous subungual debris with dull to no pain on palpation due to neuropathy, TA, T1, T2, T3, T4, T5, T6, T7, T8, T9
--- OUTSIDE RECORDS SUMMARY | 2024-05-29 15:16 | XMS_ITS | Encounter Summary ---
Author Organization [facility] Address [address] [place] [address] Care Team Providers Care Door To Door Salesman Name Role Phone Kyle Chavez MD Primary Care Provider [phone] Bravo Edwards MD, PHD Unavailable [facility], Pcp [facility] Kyle Chavez MD Primary Care Provider [phone] Encounter Details Date Type Department Care Team Description 08/19/2020 Pt. Non Urgent Medical Question Adult Medicine [address] [phone] Kyle Chavez MD [address] [place] [address] [phone] Social History Tobacco Use Types Packs/Day Years [...] have Coronavirus / COVID-19? No / Unsure 07/24/2020 12:52 PM EDT documented as of this encounter Plan of Treatment Not on file documented as of this encounter Visit Diagnoses Not on filedocumented in this encounter Care Teams Door To Door Salesman Relationship Specialty Start Date End Date Kyle Chavez MD [address] [place] [address] PCP - General Internal Medicine 11/11/19 11/21/22 [facility], Pcp [address] [place] [address] PCP - General Internal Medicine 11/22/22 11/24/22 Kyle Chavez MD [address] [place] [address] PCP - General Internal Medicine 11/25/22 Bravo Edwards MD, PHD [address] [place] [address] Specialist Neurosurgery 06/10/21 documented as of this encounter
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
--- OUTSIDE RECORDS SUMMARY | 2024-05-29 15:16 | XMS_ITS | Encounter Summary ---
Author Organization [facility] Address [address] [place] [address] Care Team Providers Care Clinical Cytopathologist Name Role Phone Kyle Chavez MD Primary Care Provider [phone] Bravo Edwards MD, PHD Unavailable [facility], [facility] Primary Care Provider [facility] Kyle Chavez MD Primary Care Provider Encounter Details Date Type Department Care Team Description 06/24/2022 Pt. Non Urgent Medical Question Adult Medicine [address] [phone] Kyle Chavez MD [address] [place] [address] [phone] Social History Tobacco Use Types Packs/Day Years [...] on filedocumented in this encounter Care Teams Clinical Cytopathologist Relationship Specialty Start Date End Date Kyle Chavez MD [address] [place] [address] PCP - General Internal Medicine 11/11/19 11/21/22 [facility], Pcp [address] [place], [place] [phone] PCP - General Internal Medicine 11/22/22 11/24/22 Kyle Chavez MD [address] [place] [address] PCP - General Internal Medicine 11/25/22 Bravo Edwards MD, PHD [address] [place] [address] Specialist Neurosurgery 06/10/21 documented as of this encounter
--- OUTSIDE RECORDS SUMMARY | 2024-05-29 15:16 | XMS_ITS | Encounter Summary ---
Author Organization [facility] Address [address] [place] [address] Care Team Providers Care Colloid Mill Operator Name Role Phone Jean-Paul Carranza MD Primary Care Provider Unavail able Kyle Chavez MD Primary Care Provider [phone] Bravo Edwards MD, PHD Unavailable [facility], Pcp Primary Care Provider Unavailabl Kyle Washington MD Primary Care Provider [phone] Encounter Details Date Type Department Care Team Description 07/30/2018 Orders Only Adult Medicine [address] [phone] Jean-Paul Carranza MD Social History Tobacco Use Types Packs/Day Years [...] on filedocumented in this encounter Care Teams Colloid Mill Operator Relationship Specialty Start Date End Date Jean-Paul Carranza MD PCP - General Internal Medicine 06/04/18 11/10/19 Kyle Chavez MD [address] [place] [address] PCP - General Internal Medicine 11/11/19 11/21/22 [facility], Pcp [address] [place] [address] PCP - General Internal Medicine 11/22/22 11/24/22 Kyle Chavez MD [address] [place] [address] PCP - General Internal Medicine 11/25/22 Bravo Edwards MD, PHD [address] [place] [address] Specialist Neurosurgery 06/10/21 documented as of this encounter
--- OUTSIDE RECORDS SUMMARY | 2024-05-29 15:16 | XMS_ITS | Encounter Summary ---
Author Organization [facility] Address [address] [place] [address] Care Team Providers Care Junior Network Engineer Name Role Phone Kyle Chavez MD Primary Care Provider [phone] Bravo Edwards MD, PHD Unavailable [facility], Pcp Primary Care Provider [facility] Kyle Chavez MD Primary Care Provider [phone] Reason for Visit * Reason Comments E-prescribe Rx Request Encounter Details Date Type Department Care Team Description 05/03/2022 Refill Adult Medicine [address] [id number] Kyle Chavez MD [address] [place] [address] [phone] E-prescribe Rx Request Social History Tobacco Use Types Packs/Day Years [...] encounter Miscellaneous Notes * Telephone Encounter - Shannan Barbour M.A. - 05/03/2022 12:36 PM EST Lab Results Component Value Date URBENZO NONE DETECTED 08/17/2018 UROPIATES NONE DETECTED 08/17/2018 UROXYCODONE NONE DETECTED 08/17/2018 URBARBITUATE NONE DETECTED 08/17/2018 PAINAMPHETAM NONE DETECTED 08/17/2018 PAINCOCAINE NONE DETECTED 08/17/2018 PAINCANNABIN POSITIVE 08/17/2018 ERIKA was telemed 07/28/2021 w/PCP Next OV w/PCP 05/18/2022 04/18/2022 04/05/2022 1 Buprenorphine-Nalox 8-2 Mg Tab 28 14 [facility] [id number] 05/01 16.00 mgT [place] 04/18/2022 04/01/2022 1 Pregabalin 150 Mg Capsule 90 30 An Cru [id number] Wal (5640) 0/0 3.01 [place]ET [place] 04/14/2022 04/04/2022 1 Lorazepam 1 Mg Tablet 90 30 Ch L p [id number] Wal (5640) 0/3 3.00 [place] 04/05/2022 04/05/2022 1 Buprenorphine-Nalox 8-2 Mg Tab 28 14 [facility] [id number] [facility] (5640) 0 16.00 mgT [place] 03/30/2022 03/28/2022 1 Pregabalin 150 Mg Capsule 60 30 An Cru [id number] Wal (5640) 0/5 2.01 [place] 03/23/2022 03/08/2022 1 Buprenorphine-Nalox 8-2 Mg Tab 28 14 Mck [id number] Wal (5640) 05/01 16.00 mgT [place] 03/16/2022 03/16/2022 1 Lorazepam 1 Mg Tablet 90 30 Ch L p [id number] Wal (5640) 0/0 3.00 [place] 03/11/2022 03/09/2022 1 Pregabalin 50 Mg Capsule 30 30 An Cru [id number] Wal (5640) 0/0 0.34 [place] 03/08/2022 03/08/2022 1 Buprenorphine-Nalox 8-2 Mg Tab 28 14 [facility] [id number] (5640) 0/1 16.00 [place]T [place] 03/07/2022 02/07/2022 1 Pregabalin 150 Mg Capsule 60 30 An Cru [id number] Wal (5640) 0/4 2.01 [place]ET [place] 02/21/2022 02/08/2022 1 Buprenorphine-Nalox 8-2 Mg Tab 28 14 Ka Mck [id number] Wal (5471) 0/0 16.00 mgT [place] 02/14/2022 12/31/2021 1 Lorazepam 1 Mg Tablet 90 30 Ch L p [id number] Wal (5471) 0/2 3.00 [place] 02/11/2022 02/09/2022 1 Pregabalin 50 Mg Capsule 30 30 Oy Ogu [id number] Wal (5471) 0/0 0.34 [place] 02/08/2022 02/08/2022 1 Buprenorphine-Nalox 8-2 Mg Tab 28 14 Ka Mck [id number] Wal (5471) 0/1 16.00 mgT [place] 02/07/2022 02/07/2022 1 Pregabalin 150 Mg Capsule 60 30 An Cru [id number] Wal (5471) 0/5 2.01 LMET [place] documented in this encounter Plan of Treatment Not on file documented as of this encounter Visit Diagnoses Not on filedocumented in this encounter Care Teams Junior Network Engineer Relationship Specialty Start Date End Date Kyle Chavez MD [address] [place] [address] 277[address] PCP - General Internal Medicine 11/11/19 11/21/22 [facility], Pcp [address] [place] [address] 16508 PCP - General Internal Medicine 11/22/22 11/24/22 Kyle Chavez MD [address] [place] [address] 49861 PCP - General Internal Medicine 11/25/22 Bravo Edwards MD, PHD [address] [place], [place] [phone] Specialist Neurosurgery 06/10/21 documented as of this encounter
--- OUTSIDE RECORDS SUMMARY | 2024-05-29 15:16 | XMS_ITS | Encounter Summary ---
Author Organization [facility] Address [address] [place] [address] Care Team Providers Care Broomcorn Scraper Name Role Phone Jean-Paul Carranza MD Primary Care Provider Unavail able Kyle Chavez MD Primary Care Provider [phone] Bravo Edwards MD, PHD Unavailable [facility], Pcp Primary Care Provider Unavailabl Kyle Washington MD Primary Care Provider [phone] Encounter Details Date Type Department Care Team Description 07/05/2018 Home Teaching Gr[employer] 7 And 8 Teacher Report Medical Records [address] [place] [address] 11668 Ashli Smith MD Social History Tobacco Use Types Packs/Day [...] on filedocumented in this encounter Care Teams Broomcorn Scraper Relationship Specialty Start Date End Date Jean-Paul Carranza MD PCP - General Internal Medicine 06/04/18 11/10/19 Kyle Chavez MD [address] [place] [address] PCP - General Internal Medicine 11/11/19 11/21/22 [facility], Pcp [address] [place] [address] PCP - General Internal Medicine 11/22/22 11/24/22 Kyle Chavez MD [address] [place] [address] PCP - General Internal Medicine 11/25/22 Bravo Edwards MD, PHD [address] [place] [address] Specialist Neurosurgery 06/10/21 documented as of this encounter
--- OUTSIDE RECORDS SUMMARY | 2024-05-29 15:16 | XMS_ITS | Encounter Summary ---
Author Organization [facility] Address [address] [place] [address] Care Team Providers Care Machine Engineer Name Role Phone Kyle Chavez MD Primary Care Provider [phone] Bravo Edwards MD, PHD Unavailable [facility], Pcp Primary Care Provider [facility] Kyle Chavez MD Primary Care Provider [phone] Reason for Referral * EXTERNAL (Routine) - Authorized/Booked Specialty Diagnoses / Procedures Referred By Contac t Referred To Contact Podiatry Diagnoses Pain of toe, unspecified laterality Procedures REFERRAL TO PODIATRY (OUT OF NETWORK) Kyle Chavez MD [address] [place] [address] Ramonita Morales [address] [place] [address] Referral ID Status Reason Start Date Expiration Date V isits Requested Visits Authorized [id number] Authorized/B ooked 08/24/2020 12/10/2020 1 1 Encounter Details Date Type Department Care Team Description 08/20/2020 Pt. Non Urgent Medical Question Adult Medicine [address] [address] Kyle Chavez MD [address] [place] [address] Pain of toe, unspecified laterality (Primary Dx) Social History Tobacco Use Types Packs/Day Years [...] PM EDT documented as of this encounter Progress Notes * Shae Payan M.A. - 08/21/2020 8:22 AM EDT Please see [facility] msg documented in this encounter Miscellaneous Notes * Telephone Encounter - Carmina Colindres M.A. - 08/20/2020 10:54 AM EDTFrom: Perla Dixon To: Dr. Jose Chavez Sent: 08/20/2020 1:10 AM EDT Subject: Feet Hello Dr. Chavez. I was seeing Dr Morales at [facility] in [place]. I have been trying to contact her and it does not go through I tried about 3 days in a row now and the phone you can't get through at all and I have some issues with my toenails they're hurting me could you please send me a referral so I can do something about my toe nails? Thank you and please stay well:) documented in this encounter Plan of Treatment Not on file documented as of this encounter Visit Diagnoses Diagnosis Pain of toe, unspecified laterality- Primary documented in this encounter Care Teams Machine Engineer Relationship Specialty Start Date End Date Kyle Chavez MD [address] [place] [address] PCP - General Internal Medicine 11/11/19 11/21/22 [facility], Pcp [address] [place] [address] PCP - General Internal Medicine 11/22/22 11/24/22 Kyle Chavez MD [address] [place] [address] PCP - General Internal Medicine 11/25/22 Bravo Edwards MD, PHD [address] [place] [address] Specialist Neurosurgery 06/10/21 documented as of this encounter
--- OUTSIDE RECORDS SUMMARY | 2024-05-29 15:16 | XMS_ITS | Encounter Summary ---
Author Organization [facility] Address [address] [place] [address] Care Team Providers Care Optometric Technologist Name Role Phone Kyle Chavez MD Primary Care Provider [phone] Bravo Edwards MD, PHD Unavailable [facility], Pcp Primary Care Provider [facility] Kyle Chavez MD Primary Care Provider [phone] Encounter Details Date Type Department Care Team Description 09/14/2022 Pt. Non Urgent Medical Question Adult Medicine [address] [phone] Kyle Chavez MD [address] [place] [address] [phone] Social History Tobacco Use Types Packs/Day Years [...] suspected to have Coronavirus/COVID-19? No / Unsure 08/23/2022 1:03 PM EDT documented as of this encounter Plan of Treatment Not on file documented as of this encounter Visit Diagnoses Not on filedocumented in this encounter Care Teams Optometric Technologist Relationship Specialty Start Date End Date Kyle Chavez MD [address] [place] [address] PCP - General Internal Medicine 11/11/19 11/21/22 [facility], Pcp [address] [place], [place] [phone] PCP - General Internal Medicine 11/22/22 11/24/22 Kyle Chavez MD [address] [place] [address] PCP - General Internal Medicine 11/25/22 Bravo Edwards MD, PHD [address] [place], [place] [phone] Specialist Neurosurgery 06/10/21 documented as of this encounter
--- OUTSIDE RECORDS SUMMARY | 2024-05-29 15:16 | XMS_ITS | Encounter Summary ---
Author Organization [facility] Address [address] [place] [address] Care Team Providers Care Water Pollution Control Inspector Name Role Phone Jean-Paul Carranza MD Primary Care Provider Unavail able Kyle Chavez MD Primary Care Provider [phone] Bravo Edwards MD, PHD Unavailable [facility], Pcp Primary Care Provider Unavailabl Kyle Washington MD Primary Care Provider [phone] Encounter Details Date Type Department Care Team Description 08/13/2018 Orders Only Adult Medicine [address] [phone] Jean-Paul Carranza MD Social History Tobacco Use [...] on filedocumented in this encounter Care Teams Water Pollution Control Inspector Relationship Specialty Start Date End Date Jean-Paul Carranza MD PCP - General Internal Medicine 06/04/18 11/10/19 Kyle Chavez MD [address] [place] [address] PCP - General Internal Medicine 11/11/19 11/21/22 [facility], Pcp [address] [place] [address] PCP - General Internal Medicine 11/22/22 11/24/22 Kyle Chavez MD [address] [place] [address] PCP - General Internal Medicine 11/25/22 Bravo Edwards MD, PHD [address] [place] [address] Specialist Neurosurgery 06/10/21 documented as of this encounter
--- OUTSIDE RECORDS SUMMARY | 2024-05-29 15:16 | XMS_ITS | Encounter Summary ---
Author Organization [facility] Address [address] [place] [address] Care Team Providers Care Director Of Athletics Name Role Phone Amy Hernandez MD Primary Care Provider Unavail Jean-Paul Ortega MD Primary Care Provider Unavail Kyle Camejo MD Primary Care Provider Bravo Edwards MD, PHD Unavailable [facility], Pcp Primary Care Provider UnavailKyle Putnam MD Primary Care Provider [phone] Encounter Details Date Type Department Care Team Description 02/03/2018 Pt. Non Urgent Medic al Question Gastroenterology [address] [address] Caty Vo MD Social History Tobacco Use Types Packs/Day [...] as of this encounter Progress Notes * Cielo De La Garza M.A. - 02/05/2018 8:50 AM EDTFrom: Perla Dixon To: Caty Vo MD Sent: 02/03/2018 5:00 PM EDT Subject: Wrong med I received the wrong prep med for my procedure on MondayFebruary 06 so I will have to cancel. I will call on Monday to reschedule. documented in this encounter Plan of Treatment Not on file documented as of this encounter Visit Diagnoses Not on filedocumented in this encounter Care Teams Director Of Athletics Relationship Specialty Start Date End Date Amy Hernandez MD PCP - General Internal Medicine 02/01/18 06/03/18 Jean-Paul Carranza MD PCP - General Internal Medicine 06/04/18 11/10/19 Kyle Chavez MD [address] [place] [address] PCP - General Internal Medicine 11/11/19 11/21/[address] [address] PCP - General Internal Medicine 11/22/22 11/24/22 Kyle Chavez MD [address] [place] [address] PCP - General Internal Medicine 11/25/22 Bravo Edwards MD, PHD [address] [place] [address] Specialist Neurosurgery 06/10/21 documented as of this encounter
--- OUTSIDE RECORDS SUMMARY | 2024-05-29 15:16 | XMS_ITS | Encounter Summary ---
Author Organization [facility] Address [address] [place] [address] Care Team Providers Care Cream Separator Operator Name Role Phone Bravo Edwards MD, PHD Unavailable Unava Kyle King MD Primary Care Provider [phone] Reason for Visit * Reason Onset Date Comments Letter 02/21/2024 Encounter Details Date Type Department Care Team Description 02/21/2024 Pt. Non Urgent Medical Question Adult Medicine [address] [phone] Kyle Chavez MD [address] [place] [address] Social History Tobacco Use Types Packs/Day Years [...] encounter Miscellaneous Notes * Telephone Encounter - Damairs Nunez M.A. - 02/21/2024 5:40 AM EDTFrom: Perla Dixon To: Jose Chavez Sent: 02/21/2024 5:06 AM EDT Subject: Hyperhidrosis Hi Dr Chavez! I am wondering if you have written a letter for me for housing. The small studio apartment I have is very warm with full sun all day. Even when it's very cold outside it's hot in here. With my hyperhidrosis as she waking up at night sweating. All I need is a letter from you stating my diagnosis so I can keep my air conditi kori in for the winter. I would be so very grateful if you could do that. Please let me know if you are and when I could picking machine operator the letter. I will be fined $100 if I don't receive that letter soon. Thank you and I hope you are well! documented in this encounter Plan of Treatment Not on file documented as of this encounter Visit Diagnoses Not on filedocumented in this encounter Care Teams Cream Separator Operator Relationship Specialty Start Date End Date Kyle Chavez MD [address] [place] [address] PCP - General Internal Medicine 11/25/22 Bravo Edwards MD, PHD Specialist Neurosurgery 06/10/21 documented as of this encounter
--- OUTSIDE RECORDS SUMMARY | 2024-05-29 15:16 | XMS_ITS | Encounter Summary ---
Author Organization [facility] Address [address] [facility] [address] [place] [address] Care Team Providers Care Travel Accommodations Rater Name Role Phone Unavailable Primary Care Provider Unavailabl e Encounter Details Date Type Department Care Team (Late st Contact Info) Description 03/25/2024 Orders Only [facility] [address] [place] [address] Provider, Historical, Social History Tobacco Use Types Packs/Day Years Used Date Smoking Tobacco: Never Assessed Comments Unknown Sex and Gender Information Value Date Recorded Sex Assigned at Not on file Legal Sex Female 11:06 AM EDT Gender Identity Not on file Sexual Orientation Not on file documented as of this encounter Plan of Treatment Not on file documented as of this encounter Procedures Procedure Name Priority Date/Time Associated Diagnosis Comments CYTOLOGY, CONVENTIONAL PAP SMEAR, 1 SLIDE Routine 12/11/2019 9:10 AM EDT documented in this encounter Results * Cytology, Conventional Pap Smear, 1 Slide (12/11/2019 9:10 AM EDT) Historical Provider LAB CYTOLOGY ORDERABLES F inal Result documented in this encounter Visit Diagnoses Not on filedocumented in this encounter
--- OUTSIDE RECORDS SUMMARY | 2024-05-29 15:16 | XMS_ITS | Encounter Summary ---
Author Organization [facility] Address [address] [place] [address] Care Team Providers Care Brand Specialist Name Role Phone Kyle Chavez MD Primary Care Provider [phone] Bravo Edwards MD, PHD Unavailable [facility], Pcp Primary Care [facility] Kyle Chavez MD Primary Care Provider [phone] Reason for Visit * Reason Comments E-prescribe Rx Request Encounter Details Date Type Department Care Team Description 11/04/2021 Refill Adult Medicine [address] [address] Mini Breen PA E-prescribe Rx Request Social History Tobacco Use [...] encounter Miscellaneous Notes * Telephone Encounter - Damaris Nunez M.A. - 11/08/2021 12:41 PM EDT Last office visit 07/28/21 Next office visit 12/09/21 * Telephone Encounter - Evelyn Whittington - 11/08/2021 12:31 PM EDT Patient would like script to be: E-PRESCRIBED/FAXED TO PHARMACY WHEN WAS THE PATIENT'S LAST APPOINTMENT IN ADULT MEDICINE? 07/28/21 WHEN WAS THE LAST TIME THE PATIENT SAW THEIR PCP? Same as above Does patient have an upcoming appointment? Yes 12/09/21 (THE MEDICATION REQUESTED IS ON THE MED LIST ABOVE) All of the medications requested were on the CURRENT MEDS list Did you check the Pharmacy information above?: YES Patient wants: 30 -day supply Is this a mail order prescription request ? NO If the refill is from a FAXED refill request what is the RX # listed on the fax? N/A Patients current insurance carrier is: Payor: [facility] M[facility] / Plan: [facility] / Product Type: HMO [id number] documented in this encounter Plan of Treatment Not on file documented as of this encounter Visit Diagnoses Not on filedocumented in this encounter Care Teams Brand Specialist Relationship Specialty Start Date End Date Kyle Chavez MD [address] [place] [address] PCP - General Internal Medicine 11/11/19 11/21/22 [facility] [place] [phone] PCP - General Internal Medicine 11/22/22 11/24/22 Kyle Chavez MD [address] [place] [address] PCP - General Internal Medicine 11/25/22 Bravo Edwards MD, PHD [address] [place] [address] Specialist Neurosurgery 06/10/21 documented as of this encounter
--- OUTSIDE RECORDS SUMMARY | 2024-05-29 15:16 | XMS_ITS | Encounter Summary ---
Author Organization [facility] Address [address] [place] [address] Care Team Providers Care Policy Checker Name Role Phone Amy Hernandez MD Primary Care Provider Unavail Jean-Paul Ortega MD Primary Care Provider Unavail able Kyle Chavez MD Primary Care Provider [phone] Bravo Edwards MD, PHD Unavailable [facility], Pcp Primary Care Provider UnavailKyle Putnam MD Primary Care Provider [phone] Reason for Visit * Reason Onset Date Comments other 05/21/2018 MRI of neck Encounter Details Date Type Department Care Team Description 05/21/2018 [place] [facility] [address] [address] Martha Hopkins PA-C other (MRI of neck) Social History Tobacco Use Types Packs/Day Years [...] Telephone Encounter - Jemal Jeong M.A. - 05/21/2018 2:26 PM EST Patient aware of making appointment for MRI of the neck, tried to transfer patient to radiology department to book it, patient declined and said she'll make appointment at a later time due to being busy at the moment. * Telephone Encounter - Martha Hopkins PA-C - 05/21/2018 12:30 PM EST An MRI of the neck was ordered for the patient in March. Patient should contact the radiology department to have it scheduled * Telephone Encounter - Leticia Damon M.A. - 05/21/2018 10:44 AM EST Patient requesting MRI of the neck will you order for patient. Please advise thank you * Telephone Encounter - Nehal Espinoza - 05/21/2018 10:20 AM EST Caller requesting call back from provider: Martha Hopkins Is the caller the patient? YES If caller is not the patient, what is the callers name? N/A Callers relationship to patient? If person calling is not the patient themselves, is there a verbal release in FYI or permanent comments for this person: YES Reason for call back: Patient would like to speak Martha Hopkins regarding having a MRI of her neck done, as she is concerned as her recent MRI of rick showed lesons on her brain and patient feels she may have MS as she feels she has all the symtoms pointing towards this, please call patient and advise Caller offered to speak with the nurse for assistance: YES Response: Patient offered to speak with nurse for assistance and patient agreed. Message forwarded to nurse. documented in this encounter Plan of Treatment Not on file documented as of this encounter Visit Diagnoses Not on filedocumented in this encounter Care Teams Policy Checker Relationship Specialty Start Date End Date Amy Hernandez MD PCP - General Internal Medicine 02/01/18 06/03/18 Jean-Paul Carranza MD PCP - General Internal Medicine 06/04/18 11/10/19 Kyle Chavez MD [address] [place] [address] PCP - General Internal Medicine 11/11/19 11/21/22 [facility], Pcp [address] [place], [place] [phone] PCP - General Internal Medicine 11/22/22 11/24/22 Kyle Chavez MD [address] [place] [address] PCP - General Internal Medicine 11/25/22 Bravo Edwards MD, PHD [address] [place] [address] Specialist Neurosurgery 06/10/21 documented as of this encounter
--- OUTSIDE RECORDS SUMMARY | 2024-05-29 15:16 | XMS_ITS | Encounter Summary ---
Author Organization [facility] Address [address] [place] [address] Care Team Providers Care Power Press Supervisor Name Role Phone Carlos Nuno MD Primary Care Provider [phone] Lucia Duff MD Primary Care Provider Amy Maldonado MD Primary Care Provider Unavail able Jean-Paul Carranza MD Primary Care Provider Unavail able Kyle Chavez MD Primary Care Provider Bravo Edwards MD, PHD Unavailable [facility], Pcp Primary Care Provider Unavailabl Kyle Washington MD Primary Care Provider [phone] Reason for Visit * Reason Comments refill request refills Encounter Details Date Type Department Care Team Description 12/23/2003 Telephone Adult Medicine [address] [phone] Carlos Nuno MD [address] [place] [address] [phone] refill request (refills) Social History Tobacco Use Types Packs/Day Years Used Date Smoking Tobacco: Never Assessed Sex Assigned at Date Recorded Female 09/28/2021 7:19 AM E DT Job Start Date Occupation Industry Not on file Not on file Not on file documented as of this encounter Miscellaneous Notes * Telephone Encounter - 12/23/2003 3:31 PM EDTCALL RECEIVED. Contact: self [phone] Pt advised rx's will not be written until due date. RX REFILLS MED NAME: Soma DOSAGE: 350 mg # OF TABLETS: #120 INSTRUCTIONS: take 1 tab 4x daily PHARMACY NAME AND TEL#: INDICATE WHETHER IT IS: Pt pick-up-put into folder WHEN WAS THE PATIENT'S LAST ADULT MEDICINE APPOINTMENT? 11/25/03 IS THE DOCTOR HERE TODAY?: YES CAN THE MESSAGE WAIT UNTIL THE DOCTOR RETURNS?: YES HAS PATIENT BEEN TOLD THAT THE PRESCRIPTION WILL NOT BE COMPLETED UNTIL THE END OF THE DAY? YES Payor: [facility] INSURANCE Plan: [facility] INSURANCE Product Type: OTHER RX REFILLS MED NAME: Lorazepam DOSAGE: 0.5 mg # OF TABLETS: #112 INSTRUCTIONS: take up to 1 tab 4x daily documented in this encounter Plan of Treatment Not on file documented as of this encounter Visit Diagnoses Not on filedocumented in this encounter Care Teams Power Press Supervisor Relationship Specialty Start Date End Date Carlos Nuno MD [address] [place] [address] PCP - General 12/16/1994 02/11/15 Lucia Duff MD [address] [place] [address] PCP - General Internal Medicine 02/12/15 01/31/18 Amy Hernandez MD [address] [place], [place] [phone] PCP - General Internal Medicine 02/01/18 06/03/18 Jean-Paul Carranza MD [address] [place] [address] PCP - General Internal Medicine 06/04/18 11/10/19 Kyle Chavez MD [address] [place] [address] PCP - General Internal Medicine 11/11/19 11/21/22 [facility], [place] [phone] PCP - General Internal Medicine 11/22/22 11/24/22 Kyle Chavez MD [address] [place] [address] PCP - General Internal Medicine 11/25/22 Bravo Edwards MD, PHD [address] [place], [place] [phone] Specialist Neurosurgery 06/10/21 documented as of this encounter
--- OUTSIDE RECORDS SUMMARY | 2024-05-29 15:16 | XMS_ITS | Encounter Summary ---
Author Organization [facility] Address [address] [place] [address] Care Team Providers Care Chief Diversity Officer Name Role Phone Jean-Paul Carranza MD Primary Care Provider Unavail Kyle Camejo MD Primary Care Provider [phone] Bravo Edwards MD, PHD Unavailable [facility], Pcp Primary Care Provider UnavailKyle Putnam MD Primary Care Provider [phone] Reason for Visit * Reason Onset Date Comments Provider Call Back 07/18/2018 Encounter Details Date Type Department Care Team Description 07/18/2018 [place] [facility] [address] [address] Jean-Paul Carranza MD Provider Call Back Social History Tobacco Use Types Packs/Day Years [...] encounter Miscellaneous Notes * Telephone Encounter - Jean-Paul Carranza MD - 07/20/2018 9:27 AM EDT The patient can call for refill when needed, thank you * Telephone Encounter - Disha Arce M.A. - 07/20/2018 9:00 AM EDT Spoke with patient. She states that she will need her Trazodone refilled next week. She also statesthat she has been weaning herself off of saboxine * Telephone Encounter - Jean-Paul Carranza MD - 07/19/2018 5:47 PM EDT This will be okay. * Telephone Encounter - Disha Arce M.A. - 07/19/2018 9:48 AM EDT Pt has an apt with you on 08/24 for a DM follow up. You don't have any open slots before then that she would be able to come in. Please advise * Telephone Encounter - Jean-Paul Carranza MD - 07/19/2018 8:19 AM EDT Please schedule patient to see me, within 2 weeks to consider contract. * Telephone Encounter - Citlali Cuevas - 07/18/2018 2:50 PM EDT Caller requesting call back from provider: Is the caller the patient? YES If caller is not the patient, what is the callers name? N/A Callers relationship to patient? N/A If person calling is not the patient themselves, is there a verbal release in FYI or permanent comments for this person: YES Reason for call back: Pt states that she saw Dr. Mahoney psychiatrist today. She couldn't understand his accent and he didn't take her as a pt. She would like to speak to Jean-Paul Carranza Caller offered to speak with the nurse for assistance: NO Response: Patient offered to speak with nurse for assistance and patient agreed. Message forwarded to nurse. documented in this encounter Plan of Treatment Not on file documented as of this encounter Visit Diagnoses Not on filedocumented in this encounter Care Teams Chief Diversity Officer Relationship Specialty Start Date End Date Jean-Paul Carranza MD PCP - General Internal Medicine 06/04/18 11/10/19 Kyle Chavez MD [address] [place] [address] PCP - General Internal Medicine 11/11/19 11/21/22 [place] [id number] PCP - General Internal Medicine 11/22/22 11/24/22 Kyle Chavez MD [address] [place] [address] PCP - General Internal Medicine 11/25/22 Bravo Edwards MD, PHD [address] [place], [place] [phone] Specialist Neurosurgery 06/10/21 documented as of this encounter
--- OUTSIDE RECORDS SUMMARY | 2024-05-29 15:16 | XMS_ITS | Encounter Summary ---
Author Organization [facility] Address [address] [place] [address] Care Team Providers Care Boiler Testing Technician Name Role Phone Amy Hernandez MD Primary Care Provider Unavail Jean-Paul Ortega MD Primary Care Provider Unavail able Kyle Chavez MD Primary Care Provider Bravo Edwards MD, PHD Unavailable [facility] Pcp Primary Care Provider UnavailKyle Putnam MD Primary Care Provider [phone] Encounter Details Date Type Department Care Team Description 03/28/2018 Transfer Records Medical Records [address] [place] [address] Abstract, Provider Social History Tobacco Use Types [...] on filedocumented in this encounter Care Teams Boiler Testing Technician Relationship Specialty Start Date End Date Amy Hernandez MD PCP - General Internal Medicine 02/01/18 06/03/18 Jean-Paul Carranza MD PCP - General Internal Medicine 06/04/18 11/10/19 Kyle Chavez MD [address] [place] [address] PCP - General Internal Medicine 11/11/19 11/21/22 [facility], Pcp [address] [place] [address] PCP - General Internal Medicine 11/22/22 11/24/22 Kyle Chavez MD [address] [place] [address] PCP - General Internal Medicine 11/25/22 Bravo Edwards MD, PHD [address] [place] [address] Specialist Neurosurgery 06/10/21 documented as of this encounter
--- OUTSIDE RECORDS SUMMARY | 2024-05-29 15:16 | XMS_ITS | Encounter Summary ---
Author Organization [facility] Address [address] [place] [address] Care Team Providers Care Biology Internship Name Role Phone Kyle Chavez MD Primary Care Provider [phone] Bravo Edwards MD, PHD Unavailable [facility], Pcp Primary Care Provider [facility] Kyle Chavez MD Primary Care Provider [phone] Encounter Details Date Type Department Care Team Description 02/11/2022 [facility] Medical Records [address] [place] [address] Abstract, Provider Social History Tobacco Use Types [...] on filedocumented in this encounter Care Teams Biology Internship Relationship Specialty Start Date End Date Kyle Chavez MD [address] [place] [address] [phone] PCP - General Internal Medicine 11/11/19 11/21/22 [facility], Pcp [address] [place] [address] PCP - General Internal Medicine 11/22/22 11/24/22 Kyle Chavez MD [address] [place] [address] PCP - General Internal Medicine 11/25/22 Bravo Edwards MD, PHD [address] [place] [address] Specialist Neurosurgery 06/10/21 documented as of this encounter
--- OUTSIDE RECORDS SUMMARY | 2024-05-29 15:16 | XMS_ITS | Encounter Summary ---
Author Organization [facility] Address [address] [place] [address] Care Team Providers Care Forest Technology Professor Name Role Phone Kyle Chavez MD Primary Care Provider [phone] Bravo Edwards MD, PHD Unavailable [facility], Pcp Primary Care Provider Unavailabl e Kyle Chavez MD Primary Care Provider [phone] Encounter Details Date Type Department Care Team Description 12/22/2021 Pt. Non Urgent Medical Question [facility] Medical [facility] Neurosurgery [place] [address] [place] [address] Bravo Edwards MD, PHD Social History Tobacco Use Types Packs/Day Years [...] on filedocumented in this encounter Care Teams Forest Technology Professor Relationship Specialty Start Date End Date Kyle Chavez MD [address] [place] [address] PCP - General Internal Medicine 11/11/19 11/21/22 [facility], Pcp [address] [place] [address] PCP - General Internal Medicine 11/22/22 11/24/22 Kyle Chavez MD [address] [place] [address] PCP - General Internal Medicine 11/25/22 Bravo Edwards MD, PHD [address] [place] [address] Specialist Neurosurgery 06/10/21 documented as of this encounter
--- OUTSIDE RECORDS SUMMARY | 2024-05-29 15:16 | XMS_ITS | Encounter Summary ---
Author Organization [facility] Address [address] [place] [address] Care Team Providers Care Sugar Laboratory Assistant Name Role Phone Kyle Chavez MD Primary Care Provider [phone] Bravo Edwards MD, PHD Unavailable [facility], Pcp Primary Care Provider Unavailabl e Kyle Chavez MD Primary Care Provider [phone] Encounter Details Date Type Department Care Team Description 12/27/2021 Pt. Non Urgent Medical Question [facility] Neurosurgery [place] [address] [place] [address] Bravo Edwards MD, PHD Social [...] on filedocumented in this encounter Care Teams Sugar Laboratory Assistant Relationship Specialty Start Date End Date Kyle Chavez MD [address] [place] [address] PCP - General Internal Medicine 11/11/19 11/21/22 [facility], Pcp [address] [place] [address] PCP - General Internal Medicine 11/22/22 11/24/22 Kyle Chavez MD [address] [place] [address] PCP - General Internal Medicine 11/25/22 Bravo Edwards MD, PHD [address] [place] [address] Specialist Neurosurgery 06/10/21 documented as of this encounter
--- OUTSIDE RECORDS SUMMARY | 2024-05-29 15:16 | XMS_ITS ---
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 Patient chooses, no pharmaceutical tx (00610) Keratoma Treatment Parring or Cutting o f Benign Hyperkeratotic Lesion(s) 27777 ( More than 4 Lesions ) - The Benign hyperkeratotic lesions, as described above were pared, and/or cut utilizing a sterile 15 blade, tissue nippers, and/or dremel Progress Notes * Shawn TROTTEROB:1964 (58 yo F)Acc No.[id number]:11/21/2023 Progress Note Patient:?Perla Trotter Provider:?Julienne Pop DPM :1965???Age:58 Y???Sex:Female D ate:11/21/2023 Address:[address] [place] [address], [place] Pcp:Cheko Chavez MD Subjective: * Chief Complaints: [...] as necessary. Patient chooses, no pharmaceutical tx (57365).?Keratoma Treatment:?Parring or Cutting of Benign Hyperkeratotic Lesion(s)?02883 ( More than 4 Lesions ) - The Benign hyperkeratotic lesions, as described above were pared, and/or cut utilizing a sterile 15 blade, tissue nippers, and/or dremel.? * Procedure Codes:?57287 DEBRI DE NAIL, 6 OR MORE, Modifiers: XS 07109 TRIM SKIN LESIONS, OVER 4, Modifiers: XS * Follow Up:?3 Months * Images: * Sign off status: Completed true * Provider:?Julienne Pop, DPM Date:? Generated for Lia sigaal/Billy/eTransmitting on:?05/29/2024 03:16 PM EST History and Physical [...]
--- OUTSIDE RECORDS SUMMARY | 2024-05-29 15:16 | XMS_ITS | Encounter Summary ---
Author Organization [facility] Address [address] [place] [address] Care Team Providers Care Enrollment Management Coordinator Name Role Phone Kyle Chavez MD Primary Care Provider [phone] Bravo Edwards MD, PHD Unavailable [facility], Pcp Primary [facility] Kyle Chavez MD Primary Care Provider Reason for Visit * Reason Onset Date Comments Mychart Rx Refill 03/23/2020 Encounter Details Date Type Department Care Team Description 03/23/2020 Refill Adult Medicine [address] [address] Rosa Hanson PA-C [address] [place] [address] Mychart Rx Refill Social History Tobacco Use Types Packs/Day Years [...] have Coronavirus / COVID-19? No / Unsure 03/03/2020 2:52 PM EST documented as of this encounter Plan of Treatment Not on file documented as of this encounter Visit Diagnoses Not on filedocumented in this encounter Care Teams Enrollment Management Coordinator Relationship Specialty Start Date End Date Kyle Chavez MD [address] [place] [address] PCP - General Internal Medicine 11/11/19 11/21/22 [facility], [address] [address] PCP - General Internal Medicine 11/22/22 11/24/22 Kyle Chavez MD [address] [place] [address] PCP - General Internal Medicine 11/25/22 Bravo Edwards MD, PHD [address] [place], [place] [phone] Specialist Neurosurgery 06/10/21 documented as of this encounter
--- OUTSIDE RECORDS SUMMARY | 2024-05-29 15:16 | XMS_ITS | Encounter Summary ---
Author Organization [facility] Address [address] [place] [address] Care Team Providers Care Agile Business Analyst Name Role Phone Jean-Paul Carranza MD Primary Care Provider Unavail able Kyle Chavez MD Primary Care Provider [phone] Bravo Edwards MD, PHD Unavailable [facility], Pcp Primary Care Provider Unavailabl Kyle [place] MD Primary Care Provider [phone] Encounter Details Date Type Department Care Team Description 06/19/2018 Orders Only Adult Medicine [address] [phone] Jean-Paul Carranza MD Social History Tobacco Use [...] on filedocumented in this encounter Care Teams Agile Business Analyst Relationship Specialty Start Date End Date Jean-Paul Carranza MD PCP - General Internal Medicine 06/04/18 11/10/19 Kyle Chavez MD [address] [place] [address] PCP - General Internal Medicine 11/11/19 11/21/22 [facility], Pcp [address] [place] [address] PCP - General Internal Medicine 11/22/22 11/24/22 Kyle Chavez MD [address] [place] [address] PCP - General Internal Medicine 11/25/22 Bravo Edwards MD, PHD [address] [place] [address] Specialist Neurosurgery 06/10/21 documented as of this encounter
--- OUTSIDE RECORDS SUMMARY | 2024-05-29 15:16 | XMS_ITS | Clinical Summary ---
Author Organization [employer] Address [address] [facility] 7t [place] [address] Care Team Providers Care Customer Contact Representative Name Role Phone Unavailable Primary Care Provider Unavailabl e Encounters Date Type Department Care Team Description 03/25/2024 Orders Only [facility] [address] [place], [place] [phone] ProviderKyle MD 03/19/2024 Telephone [facility] [address] [place], [place] [phone] Alicia Lucio MD CHART PREP 03/13/2024 Patient Outreach [facility] [address] [place], [place] [phone] Alicia Lucio MD Pre-visit Planning ([facility] unable to reach [facility]) from Last 3 Months Immunizations Name Administration Dates Next Due Influenza Injectable Quadriv alant Preservative Free IIV4 MDCK 02/27/2023 Influenza, IIV3, injectable 04/26/2020 Influenza, Unspecified 04/26/2020 Influenza, seasonal, injectable, preservative fr ee 04/26/2020 Meningococcal MPSV4 11/16/2000 Pneumococcal Conjugate PCV 20 11/24/2021, 022 Tdap 11/24/2021 Social History Tobacco Use Types Packs/Day Years Used Date Smoking Tobacco: Never Assessed Comments Unknown Sex and Gender Information Value Date Recorded Sex Assigned at Not on file Legal Sex Female 11:06 AM EDT Gender Identity Not on file Sexual Orientation Not on file Plan of Treatment Health Maintenance Due Date Last Done Comments CT Colonography 1963 Colonoscopy 1963 Colorectal Cancer Screening 1963 Depression Screening 1963 FIT DNA/Cologuard 1963 FIT 1963 FOBT 1963 HIV Screening 1965 Lipid Panel 1963 SDOH Screening 1963 Sigmoidoscopy 1963 Alcohol/Substance Use Screening 1975 Tobacco Screening 1975 Hepatitis A Vaccines (1 of 2 - Risk 2-dose series) 1982 Pap Smear 1984 Cervical Cancer Screening 1993 HPV/Cotest 1993 Mammogram 2003 Zoster Vaccines (1 of 2) 2013 Hepatitis B Vaccines (1 of 3 - Risk 3-dose series) 2023 RSV Patients and Patients Aged 60 years or older (1 - Risk 60-74 years 1-dose series) 2023 COVID-19 Vaccine ( - season) 2023 11/24/2021, 04/07/2021, 09/21/2020, Additional history exists Influenza Vaccine (#1) 2023 , 04/26/2020, 04/26/2020, Additional history exists DTaP/Tdap/Td Vaccines (2 - Td or Tdap) 11/25/2031 11/24/2021 Meningococcal Vaccine Aged Out 11/16/2000 No oly danish eligible based on patient's age to complete this topic Pneumococcal Vaccine: Pediatrics (0 to 5 Years) and At-Risk Patients (6 to 49) Years) Aged Out 11/24/2021, 11/24/2021 No longer eligibl e based on patient's age to complete this topic HIB Vaccines Aged Out No longer eligi ble based on patient's age to complete this topic HPV Vaccines Aged Out No longer eligi ble based on patient's age to complete this topic IPV Vaccines Aged Out No longer eligi ble based on patient's age to complete this topic RSV under 20 months Aged Out No longe r eligible based on patient's age to complete this topic Rotavirus Vaccines Aged Out No longer eligible based on patient's age to complete this topic Insurance [facility]
--- OUTSIDE RECORDS SUMMARY | 2024-05-29 15:16 | XMS_ITS | Encounter Summary ---
Author Organization [facility] Address [address] [place] [address] Care Team Providers Care Epic Cadence Specialists Name Role Phone Amy Hernandez MD Primary Care Provider Unavail able Jean-Paul Carranza MD Primary Care Provider Unavail able Kyle Chavez MD Primary Care Provider [phone] Bravo Edwards MD, PHD Unavailable [facility] Pcp Primary Care Provider Unavailabl Kyle Washington MD Primary Care Provider [phone] Encounter Details Date Type Department Care Team Description 04/17/2018 [facility] Adult [address] [address] Amy Hernandez MD Social History Tobacco Use Types Packs/Day [...] on filedocumented in this encounter Care Teams Epic Cadence Specialists Relationship Specialty Start Date End Date Amy Hernandez MD PCP - General Internal Medicine 02/01/18 06/03/18 Jean-Paul Carranza MD PCP - General Internal Medicine 06/04/18 11/10/19 Kyle Chavez MD [address] [place] [address] PCP - General Internal Medicine 11/11/19 11/21/22 [facility], Pcp [address] [place], [place] [phone] PCP - General Internal Medicine 11/22/22 11/24/22 Kyle Chavez MD [address] [place] [address] PCP - General Internal Medicine 11/25/22 Bravo Edwards MD, PHD [address] [place] [address] Specialist Neurosurgery 06/10/21 documented as of this encounter
--- OUTSIDE RECORDS SUMMARY | 2024-05-29 15:16 | XMS_ITS | Encounter Summary ---
Author Organization [facility] Address [address] [place] [address] Care Team Providers Care Sustainability Manager Name Role Phone Kyle Chavez MD Primary Care Provider [phone] Bravo Edwards MD, PHD Unavailable [facility], Pcp Primary Care Provider [facility] Kyle Chavez MD Primary Care Provider [phone] Reason for Visit * Reason Onset Date Comments Mychart Rx Refill 12/13/2021 Encounter Details Date Type Department Care Team Description 12/13/2021 Refill Adult Medicine [address] [address] Mini Breen PA Mychart Rx Refill Social History Tobacco Use [...] Telephone Encounter - Shannan Barbour M.A. - 12/14/2021 10:43 AM EDT Lab Results Component Value Date NA 139 01/08/2021 K 4.0 01/08/2021 CO2 28 01/08/2021 CL 105 01/08/2021 BUN 11 01/08/2021 CREAT 0.61 01/08/2021 GLU 91 01/08/2021 CA 9.8 01/08/2021 GFR > 60 01/08/2021 ERIKA was telemed w/PCP 07/28/2021 Next OV w/PCP 06/07/2022 documented in this encounter Plan of Treatment Not on file documented as of this encounter Visit Diagnoses Not on filedocumented in this encounter Care Teams Sustainability Manager Relationship Specialty Start Date End Date yKle Chavez MD [address] [place] [address] PCP - General Internal Medicine 11/11/19 11/21/22 [facility] Pcp [address] [place] [address] PCP - General Internal Medicine 11/22/22 11/24/22 Kyle Chavez MD [address] [place] [address] PCP - General Internal Medicine 11/25/22 Bravo Edwards MD, PHD [address] [place] [address] Specialist Neurosurgery 06/10/21 documented as of this encounter
--- OUTSIDE RECORDS SUMMARY | 2024-05-29 15:16 | XMS_ITS | Encounter Summary ---
Author Organization [facility] Address [address] [place] [address] Care Team Providers Care Otolaryngology Physician Name Role Phone Kyle Chavez MD Primary Care Provider [phone] Bravo Edwards MD, PHD Unavailable [facility], [facility] Primary Care Provider [facility] Kyle Chavez MD Primary Care Provider [phone] Encounter Details Date Type Department Care Team Description 02/07/2022 Pt. Non Urgent Medical Question Adult Medicine [address] [phone] Kyle Chavez MD [address] [place] [address] [phone] Social History Tobacco Use Types Packs/Day Years [...] on filedocumented in this encounter Care Teams Otolaryngology Physician Relationship Specialty Start Date End Date Kyle Chavez MD [address] [place] [address] PCP - General Internal Medicine 11/11/19 11/21/22 [facility], Pcp [address] [place], [place] [phone] PCP - General Internal Medicine 11/22/22 11/24/22 Kyle Chavez MD [address] [place] [address] PCP - General Internal Medicine 11/25/22 Bravo Edwards MD, PHD [address] [place] [address] Specialist Neurosurgery 06/10/21 documented as of this encounter
--- OUTSIDE RECORDS SUMMARY | 2024-05-29 15:16 | XMS_ITS | Encounter Summary ---
Author Organization [facility] Address [address] [place] [address] Care Team Providers Care Adoption Social Worker Name Role Phone Kyle Chavez MD Primary Care Provider [phone] Bravo Edwards MD, PHD Unavailable [facility], Pcp Primary Care Provider [facility] Kyle Chavez MD Primary Care Provider [phone] Encounter Details Date Type Department Care Team Description 08/23/2022 Pt. Non Urgent Medical Question Adult Medicine [address] [phone] Kyle Chavez MD [address] [place] [address] [id number] Social History Tobacco Use Types Packs/Day Years [...] PM EDT documented as of this encounter Miscellaneous Notes * Telephone Encounter - Damaris Nunez M.A. - 08/23/2022 9:13 AM EDTFrom: Perla Dixon To: Jose Chavez Sent: 08/23/2022 8:49 AM EDT Subject: Appointment I was wondering is there an appointment tomorrow I can see Dr Chavez I really don't want to have to leave today. I only have my transportation till 1:30 p.m. . If I don't hear back from you I will be there at 1:00 p.m. . Please call my cell phone at [phone]. There will be no more [phone] it's getting disconnected. When I come in I'll make sure I change that. Thank you... Perla documented in this encounter Plan of Treatment Not on file documented as of this encounter Visit Diagnoses Not on filedocumented in this encounter Care Teams Adoption Social Worker Relationship Specialty Start Date End Date Kyle Chavez MD [address] [place] [address] PCP - General Internal Medicine 11/11/19 11/21/22 [facility], Pcp [address] [place] [address] PCP - General Internal Medicine 11/22/22 11/24/22 Kyle Chavez MD [address] [place] [address] PCP - General Internal Medicine 11/25/22 Bravo Edwards MD, PHD [address] [place] [address] Specialist Neurosurgery 06/10/21 documented as of this encounter
--- OUTSIDE RECORDS SUMMARY | 2024-05-29 15:16 | XMS_ITS | Encounter Summary ---
Author Organization [facility] Address [address] [place] [address] Care Team Providers Care Clinical Program Manager Name Role Phone Carlos Chávez MD Primary Care Provider [phone] Lucia Duff MD Primary Care Provider UnaAmy Ureña MD Primary Care Provider Unavail able Jean-Paul Carranza MD Primary Care Provider Unavail able Kyle Chavez MD Primary Care Provider [phone] Bravo Edwards MD, PHD Unavailable [facility], Pcp Primary Care Provider Unavailabl e Kyle Chavez MD Primary Care Provider [phone] Encounter Details Date Type Department Care Team Description 11/08/2004 Telephone Adult [address] [id number] Carlos Chávez MD [address] [place] [address] [id number] Social History Tobacco Use Types Packs/Day Years Used Date Smoking Tobacco: Never Assessed Sex Assigned at Date Recorded Female 09/28/2021 7:19 AM E DT Job Start Date Occupation Industry Not on file Not on file Not on file documented as of this encounter Miscellaneous Notes * Telephone Encounter - 11/30/2004 3:11 PM EDTinfo will be fax over to dr chávez today * Telephone Encounter - 11/08/2004 8:36 AM EDTEncounter initiated. documented in this encounter Plan of Treatment Not on file documented as of this encounter Visit Diagnoses Not on filedocumented in this encounter Care Teams Clinical Program Manager Relationship Specialty Start Date End Date Carlos Chávez MD [address] [place] [address] PCP - General 12/16/1994 02/11/15 Lucia Duff MD [address] [place], [place] [id number] PCP - General Internal Medicine 02/12/15 01/31/18 Amy Hernandez MD [address] [place] [address] PCP - General Internal Medicine 02/01/18 06/03/18 Jean-Paul Carranza MD [address] [place] [address] PCP - General Internal Medicine 06/04/18 11/10/19 Kyle Chavez MD [address] [place] [address] PCP - General Internal Medicine 11/11/19 11/21/22 [facility], [address] [address] PCP - General Internal Medicine 11/22/22 11/24/22 Kyle Chavez MD [address] [place] [address] PCP - General Internal Medicine 11/25/22 Bravo Edwards MD, PHD [address] [place], [place] [id number] Specialist Neurosurgery 06/10/21 documented as of this encounter
--- OUTSIDE RECORDS SUMMARY | 2024-05-29 15:16 | XMS_ITS | Encounter Summary ---
Author Organization [facility] Address [address] [place] [address] Care Team Providers Care Tooth Grinder Name Role Phone Amy Hernandez MD Primary Care Provider Unavail Jean-Paul Ortega MD Primary Care Provider Unavail Kyle Camejo MD Primary Care Provider [phone] Bravo Edwards MD, PHD Unavailable [facility] Pcp Primary Care Provider UnavailKyle Putnam MD Primary Care Provider [phone] Encounter Details Date Type Department Care Team Description 03/27/2018 Telephone Adult Medicine [address] [address] Amy Hernandez MD Social History Tobacco Use [...] encounter Miscellaneous Notes * Telephone Encounter - Gayla Hopkins PA-C - 03/27/2018 10:45 AM EST Patient's appointment has been canceled and another appointment has been placed in that spot. Unfortunately there is nothing I can do for this at this time. I will not order a testing for UTI without seeing the patient so she can be booked today with a different provider who has availability for on a different day if appropriate we otherwise would have to go to external urgent care. I will not provide additional Ativan for the MRI as she read he takes 3 mg daily through psychiatry. There is nothing further I can provide her for her pain either as she is already on Suboxone for history of opiate abuse in the past and currently being treated with pregabalin for chronic pain management. * Telephone Encounter - Nurys Thompson - 03/27/2018 10:31 AM EST Patient calling back states the nurse told her she had to cancel her appt for her arm pain she states she is having trouble urinating and wanted gayla Hopkins to see her for that as well as her armexplained to her that she told this bsr to cancel her appt today and I did know she wants it back appt is gone, * Telephone Encounter - Marina Vincent R.N. - 03/27/2018 9:51 AM EST [phone] (home) [phone] (work) Pt has an appointment today with iwona Hopkins for arm and foot pain, is seeing dr madrid for foot pain today. Has been seen for the arm pain and MRI is pending Pt made to appointment to discuss arm pain but has been seen for this and has an MRI scheduled for Monday, was advised to make an appointment for next week to discuss results, Pt asking for ativan for MRI, I have advised her to use her ativan ( she takes 3 times a day ) justbefore her test, she does not feel this will be effective because she takes this for anxiety not for her pain and feels she will have pain while in MRI) Pt states her blood sugar was low (80) yesterday asks to discuss metformin as she believe this is causing the low BS, when told that 80 is WNL for fasting BS she states she must be over 150 , that isnormal for her She states she will just stop her metformin if it stays too low Pt is voiding excessively during the day. She denies any dysuria and states she is sure she doesnot have a UTI, feels this is also due to the metformin. Pt wanted to discuss the foot pain but I advised her to discuss with dr Madrid at visit today, pthung up as she was very angry that nothing could be done today without results of MRI. documented in this encounter Plan of Treatment Not on file documented as of this encounter Visit Diagnoses Not on filedocumented in this encounter Care Teams Tooth Grinder Relationship Specialty Start Date End Date Amy Hernandez MD PCP - General Internal Medicine 02/01/18 06/03/18 Jean-Paul Carranza MD PCP - General Internal Medicine 06/04/18 11/10/19 Kyle Chavez MD [address] [place] [address] PCP - General Internal Medicine 11/11/19 11/21/22 [place] [address] PCP - General Internal Medicine 11/22/22 11/24/22 Kyle Chavez MD [address] [place] [address] PCP - General Internal Medicine 11/25/22 Bravo Edwards MD, PHD [address] [place], [place] [phone] Specialist Neurosurgery 06/10/21 documented as of this encounter
--- OUTSIDE RECORDS SUMMARY | 2024-05-29 15:16 | XMS_ITS | Encounter Summary ---
Author Organization [facility] Address [address] [place] [address] Care Team Providers Care Documentation Nurse Name Role Phone Bravo Edwards MD, PHD Unavailable Unava ilKyle Camejo MD Primary Care Provider [phone] Reason for Visit * Reason Onset Date Comments Letter 02/21/2024 Encounter Details Date Type Department Care Team Description 02/21/2024 Pt. Non Urgent Medical Question Adult Medicine [address] [id number] Kyle Chavez MD [address] [place] [address] Social History Tobacco Use Types Packs/Day Years [...] Telephone Encounter - Manasa Longo M.A. - 02/22/2024 7:23 AM EDTFrom: Perla Dixon To: Jose Chavez Sent: 02/21/2024 5:29 PM EDT Subject: Hyperhidrosis I was wondering if that letter is ready for me about the air conditioning. I don't want to get fined $100. But I truly do need air conditioning in here all year round it's a very very small studio You take a shower in the whole place is sweating with humidity and then I'm sweating all night with the hyperhidrosis and I still get some hot flashes. Please let me know when what's up with that please documented in this encounter Plan of Treatment Not on file documented as of this encounter Visit Diagnoses Not on filedocumented in this encounter Care Teams Documentation Nurse Relationship Specialty Start Date End Date Kyle Chavez MD [address] [place] [address] PCP - General Internal Medicine 11/25/22 Bravo Edwards MD, PHD Specialist Neurosurgery 06/10/21 documented as of this encounter
--- OUTSIDE RECORDS SUMMARY | 2024-05-29 15:16 | XMS_ITS | Encounter Summary ---
Author Organization [facility] Address [address] [place] [address] Care Team Providers Care Tv News Director Name Role Phone Ben Nuno MD Primary Care Provider [phone] Lucia Duff MD Primary Care Provider Amy Maldonado MD Primary Care Provider Unavail able Jean-Paul Carranza MD Primary Care Provider Unavail able Kyle Chavez MD Primary Care Provider [phone] Bravo Edwards MD, PHD Unavailable [facility], Pcp Primary Care Provider Unavailabl Kyle Washington MD Primary Care Provider [phone] Reason for Visit * Reason Comments refill request refills Encounter Details Date Type Department Care Team Description 10/15/2003 Telephone Adult Medicine [address] [phone] Ben Nuno MD [address] [place] [address] [phone] refill request (refills) Social History Tobacco Use Types Packs/Day Years Used Date Smoking Tobacco: Never Assessed Sex Assigned at Date Recorded Female 09/28/2021 7:19 AM E DT Job Start Date Occupation Industry Not on file Not on file Not on file documented as of this encounter Miscellaneous Notes * Telephone Encounter - 10/15/2003 1:[address] BEN NUNO * Telephone Encounter - 10/15/2003 1:[address] BEN NUNO * Telephone Encounter - 10/15/2003 11:27 AM EDTCALL RECEIVED. Contact: self [phone] RX REFILLS MED NAME: Lorazepam DOSAGE: 0.5mg # OF TABLETS: #90 INSTRUCTIONS: take 1 tab every 6 hours as needed PHARMACY NAME AND TEL#: [address] [phone] INDICATE WHETHER IT IS: Call to outside pharmacy WHEN WAS THE PATIENT'S LAST ADULT MEDICINE APPOINTMENT? 08/20/03 IS THE DOCTOR HERE TODAY?: YES CAN THE MESSAGE WAIT UNTIL THE DOCTOR RETURNS?: YES HAS PATIENT BEEN TOLD THAT THE PRESCRIPTION WILL NOT BE COMPLETED UNTIL THE END OF THE DAY? YES Payor: [facility] INS[facility] Plan: [facility] [employer] Product Type: OTHER RX REFILLS MED NAME: soma DOSAGE: 350 mg # OF TABLETS: #90 INSTRUCTIONS: take 1 tab 3x daily documented in this encounter Plan of Treatment Not on file documented as of this encounter Visit Diagnoses Not on filedocumented in this encounter Care Teams Tv News Director Relationship Specialty Start Date End Date Ben Nuno MD [address] [place] [address] PCP - General 12/16/1994 02/11/15 Lucia Duff MD [address] [place] [address] PCP - General Internal Medicine 02/12/15 01/31/18 Amy Hernandez MD [address] [place] [address] PCP - General Internal Medicine 02/01/18 06/03/18 Jean-Paul Carranza MD [address] [place] [address] PCP - General Internal Medicine 06/04/18 11/10/19 Kyle Chavez MD [address] [place] [address] PCP - General Internal Medicine 11/11/19 11/21/22 [facility], Pcp [address] [place], [place] [phone] PCP - General Internal Medicine 11/22/22 11/24/22 Kyle Chavez MD [address] [place] [address] PCP - General Internal Medicine 11/25/22 Bravo Edwards MD, PHD [address] [place] [address] Specialist Neurosurgery 06/10/21 documented as of this encounter
--- OUTSIDE RECORDS SUMMARY | 2024-05-29 15:16 | XMS_ITS | Encounter Summary ---
Author Organization [facility] Address [address] [place] [address] Care Team Providers Care Brush Operator Name Role Phone Jean-Paul Carranza MD Primary Care Provider Unavail Kyle Camejo MD Primary Care Provider [phone] Bravo Edwards MD, PHD Unavailable [facility], Pcp Primary Care Provider UnavailKyle Putnam MD Primary Care Provider [phone] Reason for Visit * Reason Onset Date Comments refill request 10/08/2019 Encounter Details Date Type Department Care Team Description 10/08/2019 Refill Adult Medicine [address] [address] Jean-Paul Carranza MD refill request Social History Tobacco Use [...] encounter Miscellaneous Notes * Telephone Encounter - Ramonita Reynoso M.A. - 11/13/2019 2:49 PM EDT Podiatry department closed * Telephone Encounter - Mini Coolquendo - 10/08/2019 4:07 PM EDT Podiatry left the practice, needs refills on this medications Patient would like script to be: E-PRESCRIBED/FAXED TO PHARMACY WHEN WAS THE PATIENT'S LAST APPOINTMENT IN ADULT MEDICINE? 06/24/2019 WHEN WAS THE LAST TIME THE PATIENT SAW THEIR PCP? Same as above Does patient have an upcoming appointment? YES 11/11/2019 (THE MEDICATION REQUESTED IS ON THE MED [...] N/A Patients current insurance carrier is: Payor: [employer] [facility] M[facility] / Plan: [facility] / Product Type: HMO [id number] documented in this encounter Plan of Treatment Not on file documented as of this encounter Visit Diagnoses Diagnosis Plantar fasciitis of right foot Plantar fascial fibromatosis Pain in right foot Pain in limb documented in this encounter Care Teams Brush Operator Relationship Specialty Start Date End Date Jean-Paul Carranza MD PCP - General Internal Medicine 06/04/18 11/10/19 Kyle Chavez MD [address] [place] [address] PCP - General Internal Medicine 11/11/19 11/21/[address] [address] PCP - General Internal Medicine 11/22/22 11/24/22 Kyle Chavez MD [address] [place] [address] PCP - General Internal Medicine 11/25/22 Bravo Edwards MD, PHD [address] [place] [address] Specialist Neurosurgery 06/10/21 documented as of this encounter
--- OUTSIDE RECORDS SUMMARY | 2024-05-29 15:16 | XMS_ITS | Encounter Summary ---
Author Organization [facility] Address [address] [place] [address] Care Team Providers Care Jet Operator Name Role Phone Kyle Chavez MD Primary Care Provider Bravo Edwards MD, PHD Unavailable [facility], Pcp Primary Care Provider [facility] Kyle Chavez MD Primary Care Provider [phone] Encounter Details Date Type Department Care Team Description 08/24/2022 Pt. Non Urgent Medical Question Adult Medicine [address] [phone] Kyle Chavez MD [address] [place] [address] [phone] Social History Tobacco Use Types Packs/Day Years [...] encounter Miscellaneous Notes * Telephone Encounter - Disha Arce M.A. - 08/24/2022 2:32 PM EDTFrom: Perla Dixon To: Jose Chavez Sent: 08/24/2022 12:44 PM EDT Subject: Appointment I seen Dr. Chavez September 22 and he wants me to schedule an appointment to check my blood pressure in [facility]. I made it for September 22. I need to change that appointment. I didn't realize I already have an appointment that day. Could someone please call me to reschedule. Thank you...Perla documented in this encounter Plan of Treatment Not on file documented as of this encounter Visit Diagnoses Not on filedocumented in this encounter Care Teams Jet Operator Relationship Specialty Start Date End Date Kyle Chavez MD [address] [place] [address] PCP - General Internal Medicine 11/11/19 11/21/22 [place] [id number] PCP - General Internal Medicine 11/22/22 11/24/22 Kyle Chavez MD [address] [place] [address] PCP - General Internal Medicine 11/25/22 Bravo Edwards MD, PHD [address] [place], [place] [phone] Specialist Neurosurgery 06/10/21 documented as of this encounter
--- OUTSIDE RECORDS SUMMARY | 2024-05-29 15:16 | XMS_ITS | Encounter Summary ---
Author Organization [facility] Address [address] [place] [address] Care Team Providers Care Slip Cover Sewer Name Role Phone Jean-Paul Carranza MD Primary Care Provider Unavail Kyle Camejo MD Primary Care Provider [phone] Bravo Edwards MD, PHD Unavailable [facility], Pcp Primary Care Provider UnavailKyle Putnam MD Primary Care Provider [phone] Reason for Visit * Reason Onset Date Comments refill request 07/30/2018 Encounter Details Date Type Department Care Team Description 07/30/2018 Refill Adult Medicine [address] [address] Jean-Paul Carranza MD refill request Social History [...] encounter Miscellaneous Notes * Telephone Encounter - Elmer Sethi C.M.A. - 07/31/2018 8:39 AM EDT I called pt and she is requesting an appt after 2:30pm on 08/06-08/10 or 08/13, please advise what day/time is ok to double book. Pt refused to see tanner, please advise Script manually faxed to pharmacy. * Telephone Encounter - Jean-Paul Carranza MD - 07/30/2018 5:28 PM EDT Patient is due, please schedule to see me within 2 weeks before next refill to sign contract. * Telephone Encounter - Emperatriz Hay - 07/30/2018 4:27 PM EDT Please call pt @ [phone] * Telephone Encounter - Elmer Sethi C.M.A. - 07/30/2018 3:41 PM EDT See encounter 07/18/18 I called pt, she states that she understood that it was ok to sign a contract at her visit 08/24/2018 Pt does not have transportation, please advise. Pt received #42 tabs on 07/17/18 (2 weeks supply) Pt will be out of meds tomorrow, would you sign a script tomorrow? Pt would like a call back * Telephone Encounter - Jean-Paul Carranza MD - 07/30/2018 12:23 PM EDT Please have patient come in this week to sign a contract for lorazepam, she is not due until Monday. * Telephone Encounter - Elmer Sethi C.M.A. - 07/30/2018 9:53 AM EDT Pt is not contracted for Ativan, last prescribed 07/17/18 Lab Results Component Value Date URBENZO NONE DETECTED 03/29/2004 URAMPHETAMIN NONE DETECTED 03/29/2004 URMARIJUANA NONE DETECTED 03/29/2004 UROPIATES NONE DETECTED 03/29/2004 URBARBITUATE NONE DETECTED 03/29/2004 URCOCAINE POSITIVE 03/29/2004 * Telephone Encounter - Twyla Hall - 07/30/2018 9:45 AM EDT Patient would like script to be: E-PRESCRIBED/FAXED TO PHARMACY WHEN WAS THE PATIENT'S LAST APPOINTMENT IN ADULT MEDICINE? 06/19/18 WHEN WAS THE LAST TIME THE PATIENT SAW THEIR PCP? 06/07/18 Does patient have an upcoming appointment? Yes 08/24/18 (THE MEDICATION REQUESTED IS ON THE MED [...] N/A Patients current insurance carrier is: Payor: [facility] MCR / Plan: [employer] [facility] / Product Type: HMO [id number] documented in this encounter Plan of Treatment Not on file documented as of this encounter Visit Diagnoses Not on filedocumented in this encounter Care Teams Slip Cover Sewer Relationship Specialty Start Date End Date Jean-Paul Carranza MD PCP - General Internal Medicine 06/04/18 11/10/19 Kyle Chavez MD [address] [place] [address] PCP - General Internal Medicine 11/11/19 11/21/22 [facility], Pcp [address] [place] [address] PCP - General Internal Medicine 11/22/22 11/24/22 Kyle Chavez MD [address] [place] [address] PCP - General Internal Medicine 11/25/22 Bravo Edwards MD, PHD [address] [place] [address] Specialist Neurosurgery 06/10/21 documented as of this encounter
--- OUTSIDE RECORDS SUMMARY | 2024-05-29 15:16 | XMS_ITS | Encounter Summary ---
Author Organization [facility] Address [address] [place] [address] Care Team Providers Care Rn Stars Name Role Phone Jean-Paul Carranza MD Primary Care Provider Unavail Kyle Camejo MD Primary Care Provider [phone] Bravo Edwards MD, PHD Unavailable [facility], Pcp Primary Care Provider UnavailKyle Putnam MD Primary Care Provider [phone] Reason for Visit * Reason Onset Date Comments Orders Call 06/12/2018 Encounter Details Date Type Department Care Team Description 06/12/2018 Telephone Adult Medicine [address] [address] Jean-Paul Carranza MD Orders Call Social History Tobacco Use Types Packs/Day Years [...] Telephone Encounter - Disha Arce M.A. - 06/19/2018 8:42 AM EST Please book appt for nurse only * Telephone Encounter - Jean-Paul Carranza MD - 06/14/2018 5:42 PM EST Possible side effects of Pneumovax including rash and allergic reaction discussed. Please call patient to schedule. * Telephone Encounter - Manasa Longo M.A. - 06/14/2018 1:40 PM EST Pt was seen by Dr. Carranza 06/07/18. Pt is requesting an order for pneumonia injection please advise * Telephone Encounter - Ishan Fall - 06/12/2018 2:40 PM EST Payor: [facility] M[facility] / Plan: [facility] / Product Type: [facility] [id number] Patient is requesting a list of their previous immunizations NO Does the patient have an immunization form to be completed? NO Is the patient requesting immunizations to be administered? YES If yes, which immunizations are needed? pneumonia Is the patient traveling to a foreign country: NO If traveling: Which country: Date patient is leaving: documented in this encounter Plan of Treatment Scheduled Orders Name Type Priority Associated Diagnoses Orde r Schedule PNEUMOCOCCAL VACCINE,ADULT,SQ OR IM Immunizations /Injection Routine Need for prophylactic vaccination against Streptococcus pneumoniae (pneumococcus) 1 Occurrences starting 06/14/2018 until 12/11/2018 documented as of this encounter Visit Diagnoses Diagnosis Need for prophylactic vaccination against Streptococcus pneumoniae (pneumococcus)- Primary Need for prophylactic vaccination against streptococcus pneumoniae (pneumococcus) documented in this encounter Care Teams Rn Stars Relationship Specialty Start Date End Date Jean-Paul Carranza MD PCP - General Internal Medicine 06/04/18 11/10/19 Kyle Chavez MD [address] [place] [address] PCP - General Internal Medicine 11/11/19 11/21/22 [facility], [address] [address] PCP - General Internal Medicine 11/22/22 11/24/22 Kyle Chavez MD [address] [place] [address] PCP - General Internal Medicine 11/25/22 Bravo Edwards MD, PHD [address] [place] [address] Specialist Neurosurgery 06/10/21 documented as of this encounter
--- OUTSIDE RECORDS SUMMARY | 2024-05-29 15:16 | XMS_ITS | Encounter Summary ---
Author Organization [facility] Address [address] [place] [address] Care Team Providers Care Supervisor Machine Setter Name Role Phone Kyle Chavez MD Primary Care Provider [phone] Bravo Edwards MD, PHD [facility], Pcp Primary Care Provider [facility] Kyle Chavez MD Primary Care Provider [phone] Reason for Referral * EXTERNAL (Routine) - Authorized/Booked Specialty Diagnoses / Procedures Referred By Contac t Referred To Contact Neurology Procedures REFERRAL TO NEUROLOGY Mini Breen PA [address] [place] [id number] Walker López MD Referral ID Status Reason Start Date Expiration Date V isits Requested Visits Authorized [id number] Authorized/B ooked 10/19/2020 01/29/2021 1 1 Reason for Visit * Reason Onset Date Comments Feeder Associate Feedback 10/15/2020 Neurology Encounter Details Date Type Department Care Team Description 10/15/2020 Telephone Adult Medicine [address] [address] Mini Breen PA Feeder Associate Feedback (Neurology) Social History Tobacco Use Types Packs/Day Years [...] Telephone Encounter - Mini Kelly PA-C - 10/19/2020 7:18 AM EDT New order updated. Thank you! * Telephone Encounter - Misti Chan - 10/15/2020 9:35 AM EDT Angelo Morse placed an order for the patient to be seen by [facility] Neurology for Migraines, abnormal MRI concerning MS. Their office has declined to schedule the patient due to an extensive history of no-shows and cancellations. I have pended a new order to you. Please review and sign when able. Thank you Misti Bolaños Fiscal Technician documented in this encounter Plan of Treatment Not on file documented as of this encounter Visit Diagnoses Not on filedocumented in this encounter Care Teams Supervisor Machine Setter Relationship Specialty Start Date End Date Kyle Chavez MD [address] [place] [address] PCP - General Internal Medicine 11/11/19 11/21/22 [facility], Pcp [address] [place] [address] PCP - General Internal Medicine 11/22/22 11/24/22 Kyle Chavez MD [address] [place] [address] PCP - General Internal Medicine 11/25/22 Bravo Edwards MD, PHD [address] [place] [address] Specialist Neurosurgery 06/10/21 documented as of this encounter
--- OUTSIDE RECORDS SUMMARY | 2024-05-29 15:17 | XMS_ITS | Encounter Summary ---
Author Organization [facility] Address [address] [place] [address] Care Team Providers Care Crochet Beader Name Role Phone Lucia Duff MD Primary Care Provider Amy Maldonado MD Primary Care Provider Unavail able Jean-Paul Carranza MD Primary Care Provider Unavail able Kyle Chavez MD Primary Care Provider [phone] Bravo Edwards MD, PHD Unavailable [facility], Pcp Primary Care Provider Unavailabl e Kyle Chavez MD Primary Care Provider [phone] Reason for Visit * Reason Onset Date Comments [facility] Special Procedure Gi 10/31/2017 Encounter Details Date Type Department Care Team Description 10/31/2017 Telephone Gastroenterology - [address] [address] Caty Vo MD [facility] Social History Tobacco Use Types Packs/Day Years [...] encounter Miscellaneous Notes * Telephone Encounter - Mamie Fleming - 2018 11:09 AM EST Patent has called to cancel her colonoscopy. I have contacted [facility] endo suite and have notified Them. * Telephone Encounter - Merle Healy - 02/07/2018 12:54 PM EDT Patient double booked at [facility], changed time of arrival from 7am to 7:30am on 04/10/18. Confirmed with patient. * Telephone Encounter - Merle Healy - 02/05/2018 9:23 AM EDT Patient had to rescheduled 02/06/18 colonoscopy-no transportation and prep wasn't called in. Patient is scheduled for 04/10/18 with a 7:00am arrival, 8:00am procedure with Dr. Vo. * Telephone Encounter - Merle Healy - 02/01/2018 1:34 PM EDT was received * Telephone Encounter - Merle Healy - 02/01/2018 11:26 AM EDT Confirmed appointment with patient. * Telephone Encounter - Merle Healy - 12/18/2017 8:43 AM EDT Patient had to reschedule her colonoscopy at [facility], she is set for 02/06/18, arrival 7:00am, 8:00am procedure. * Telephone Encounter - Mamie Fleming - 10/31/2017 2:46 PM EDT Patient has been scheduled for a colonoscopy at [facility] on 12/12/17 at 6:30 am arrival time, 7:30 [address] procedure time [address] Dr Vo. Booking sheet, snap shot, demographics, and insurance faxed to [facility] Endo suite. Case # pending. documented in this encounter Plan of Treatment Not on file documented as of this encounter Visit Diagnoses Not on filedocumented in this encounter Care Teams Crochet Beader Relationship Specialty Start Date End Date Lucia Duff MD PCP - General Internal Medicine 02/12/15 01/31/18 Amy Hernandez MD PCP - General Internal Medicine 02/01/18 06/03/18 Jean-Paul Carranza MD PCP - General Internal Medicine 06/04/18 11/10/19 Kyle Chavez MD [address] [place] [address] PCP - General Internal Medicine 11/11/19 11/21/[address] [address] PCP - General Internal Medicine 11/22/22 11/24/22 Kyle Chavez MD [address] [place] [address] PCP - General Internal Medicine 11/25/22 Bravo Edwards MD, PHD [address] [place], [place] [id number] Specialist Neurosurgery 06/10/21 documented as of this encounter
--- OUTSIDE RECORDS SUMMARY | 2024-05-29 15:17 | XMS_ITS | Encounter Summary ---
Author Organization [facility] Address [address] [place] [address] Care Team Providers Care Wet And Dry Sugar Bin Operator Name Role Phone Lucia Duff MD Primary Care Provider Amy Maldonado MD Primary Care Provider Unavail able Jean-Paul Carranza MD Primary Care Provider Unavail able Kyle Chavez MD Primary Care Provider [phone] Bravo Edwards MD, PHD Unavailable Unava [facility], Pcp Primary Care Provider Unavailabl e Kyle Chavez MD Primary Care Provider [phone] Reason for Visit * Reason Onset Date Comments PT-1 04/20/2016 Encounter Details Date Type Department Care Team Description 04/20/2016 Telephone Adult [address] [address] Lucia Duff MD PT-1 Social History Tobacco Use Types Packs/Day Years [...] Telephone Encounter - Elmer Sethi C.M.A. - 04/21/2016 3:00 PM EST Yes I'm aware, once they fix the problem please complete the form and send it back, I wont be able to complete pt-1 form if the request is not completed with the new template, Thank you. * Telephone Encounter - Waleska Spiveylink - 04/21/2016 2:30 PM EST PER JACKY MORIN MY LAW CLERK THE PT 1 REVERTED BACK TO THE OLD FORM THAT WAS IN THE COMPUTER.. * Telephone Encounter - Waleskasylwia Joaquin - 04/21/2016 2:27 PM EST . * Telephone Encounter - Waleska Jovanna Emani - 04/20/2016 1:58 PM EST Effective 04/28/14 ALL [facility] patients requesting a PT1 form be completed must call this direct line or the 800# on their insurance card. [facility] will no longer be completing these forms, [facility] staff will. Member Services at [facility] will give the patient a dedicated PT1 form telephone #. All other [place] [facility] products proceed as usual. Patients [place] [facility] Pt. demographics and [place] [facility] Ins information verified YES Is this a NEW request or a Renewal? NEW Name of treating facility: [facility] Mailing address: [address] [place] [address] Is the mailing address accurate? YES. If no, update all screens in Registration Has [place] [facility] Insurance coverage been verified? YES Name (first & last) of treating provider DR ИРИНА FREDERICK Reason the patient is seeing the above provider: TEETH PROBLEM Address/zip for treating provider [address] [facility] [address] Phone # of treating provider [phone] What specialty is this provider? DENTIS How often they see them visits per week, visits per month How long will they require these services weeks, Months When is the visit scheduled? 05/18/2016 Medical reason why they are unable to use public transportation: Patient Active Problem List Diagnosis Code ??? Chronic back pain M54.9, G89.29 ??? Anxiety F41.9 ??? Myalgia and myositis, unspecified [id number] ??? Hepatitis C, chronic B18.2 ??? Opioid dependence F11.20 ??? History of cervical cancer Z85.41 ??? Neuropathy G62.9 ??? 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 Insomnia G47.00 ??? Major depressive disorder F32.9 ??? Pulmonary nodules R91.8 ??? History of heroin abuse Z87.898 ??? Morbid obesity E66.01 ? ? Hyperlipidemia LDL goal <100 E78.5 Do they need a wheelchair van: NO Do they need an escort to accompany them? NO Will they have an alternative pick-up address? NO Does the patient have a service animal? NO PT DOES NOT NEED RELEASE OF INFORMATION SIGNED * Telephone Encounter - Mamie Fleming - 04/20/2016 1:49 PM EST documented in this encounter Plan of Treatment Not on file documented as of this encounter Visit Diagnoses Not on filedocumented in this encounter Care Teams Wet And Dry Sugar Bin Operator Relationship Specialty Start Date End Date Lucia Duff MD PCP - General Internal Medicine 02/12/15 01/31/18 Amy Hernandez MD PCP - General Internal Medicine 02/01/18 06/03/18 Jean-Paul Carranza MD PCP - General Internal Medicine 06/04/18 11/10/19 Kyle Chavez MD [address] [place] [address] PCP - General Internal Medicine 11/11/19 11/21/[address] [address] PCP - General Internal Medicine 11/22/22 11/24/22 Kyle Chavez MD [address] [place] [address] PCP - General Internal Medicine 11/25/22 Bravo Edwards MD, PHD [address] [place] [address] Specialist Neurosurgery 06/10/21 documented as of this encounter
--- OUTSIDE RECORDS SUMMARY | 2024-05-29 15:17 | XMS_ITS | Encounter Summary ---
Author Organization [facility] Address [address] [place] [address] Care Team Providers Care Coating And Embossing Unit Operator Name Role Phone Lucia Duff MD Primary Care Provider Amy Maldonado MD Primary Care Provider Unavail able Jean-Paul Carranza MD Primary Care Provider Unavail able Kyle Chavez MD Primary Care Provider [phone] Bravo Edwards MD, PHD Unavailable [facility], Pcp Primary Care Provider Unavailabl Kyle Washington MD Primary Care Provider [phone] Encounter Details Date Type Department Care Team Description 11/10/2016 Appliance Mechanic Report Medical Records [address] [place] [address] Jessica Cisneros Social History Tobacco Use Types Packs/Day Years [...] on filedocumented in this encounter Care Teams Coating And Embossing Unit Operator Relationship Specialty Start Date End Date Lucia Duff MD PCP - General Internal Medicine 02/12/15 01/31/18 Amy Hernandez MD PCP - General Internal Medicine 02/01/18 06/03/18 Jean-Paul Carranza MD PCP - General Internal Medicine 06/04/18 11/10/19 Klye Chavez MD [address] [place] [address] PCP - General Internal Medicine 11/11/19 11/21/22 [facility], Pcp [address] [place] [address] PCP - General Internal Medicine 11/22/22 11/24/22 Kyle Chavez MD [address] [place] [address] PCP - General Internal Medicine 11/25/22 Bravo Edwards MD, PHD [address] [place] [address] Specialist Neurosurgery 06/10/21 documented as of this encounter
--- OUTSIDE RECORDS SUMMARY | 2024-05-29 15:17 | XMS_ITS | Encounter Summary ---
Author Organization [facility] Address [address] [place] [address] Care Team Providers Care Print Project Manager Name Role Phone Jean-Paul Carranza MD Primary Care Provider Unavail Kyle Camejo MD Primary Care Provider [phone] Bravo Edwards MD, PHD Unavailable [facility], Pcp Primary Care Provider UnavailKyle Putnam MD Primary Care Provider [phone] Encounter Details Date Type Department Care Team Description 08/21/2018 [facility] Medical Records [address] [place] [address] Abstract, Provider Social History Tobacco Use Types [...] on filedocumented in this encounter Care Teams Print Project Manager Relationship Specialty Start Date End Date Jean-Paul Carranza MD PCP - General Internal Medicine 06/04/18 11/10/19 Kyle Chavez MD [address] [place] [address] PCP - General Internal Medicine 11/11/19 11/21/22 [facility], Pcp [address] [place] [address] PCP - General Internal Medicine 11/22/22 11/24/22 Kyle Chavez MD [address] [place] [address] PCP - General Internal Medicine 11/25/22 Bravo Edwards MD, PHD [address] [place] [address] Specialist Neurosurgery 06/10/21 documented as of this encounter
--- OUTSIDE RECORDS SUMMARY | 2024-05-29 15:17 | XMS_ITS | Encounter Summary ---
Author Organization [facility] Address [address] [place] [address] Care Team Providers Care Home Aid Name Role Phone Jean-Paul Carranza MD Primary Care Provider Unavail Kyle Camejo MD Primary Care Provider [phone] Bravo Edwards MD, PHD Unavailable [facility], Pcp Primary Care Provider UnavailKyle Putnam MD Primary Care Provider [phone] Encounter Details Date Type Department Care Team Description 08/20/2018 [facility] Medical Records [address] [place] [address] Abstract, Provider Social History Tobacco Use Types [...] on filedocumented in this encounter Care Teams Home Aid Relationship Specialty Start Date End Date Jean-Paul Carranza MD PCP - General Internal Medicine 06/04/18 11/10/19 Kyle Chavez MD [address] [place] [address] PCP - General Internal Medicine 11/11/19 11/21/22 [facility], Pcp [address] [place] [address] PCP - General Internal Medicine 11/22/22 11/24/22 Kyle Chavez MD [address] [place] [address] PCP - General Internal Medicine 11/25/22 Bravo Edwards MD, PHD [address] [place] [address] Specialist Neurosurgery 06/10/21 documented as of this encounter
--- OUTSIDE RECORDS SUMMARY | 2024-05-29 15:17 | XMS_ITS | Encounter Summary ---
Author Organization [facility] Address [address] [place] [address] Care Team Providers Care Liquefaction Supervisor Name Role Phone Lucia Duff MD Primary Care Provider Amy Maldonado MD Primary Care Provider Unavail able Jean-Paul Carranza MD Primary Care Provider Unavail able Kyle Chavez MD Primary Care Provider [phone] Bravo Edwards MD, PHD Unavailable [facility], Pcp Primary Care Provider Unavailabl Kyle Washington MD Primary Care Provider [phone] Reason for Visit * Reason Onset Date Comments DME Request 02/15/2017 Encounter Details Date Type Department Care Team Description 02/15/2017 Telephone Adult [address] [address] Lucia Duff MD DME Request Social History Tobacco Use Types Packs/Day [...] encounter Miscellaneous Notes * Telephone Encounter - Prema Escobar L.P.N. - 02/18/2017 12:19 PM EDT Called Pt- she is not currently home Pt was given a Rx to this item by Dr Madrid in Nov ? What she did with that Rx M/L w/Pt's mom- I will call her back on , 02/21/17 * Telephone Encounter - Rachel Olmedo - 02/15/2017 3:04 PM EDT Name of Product: Arch supp[employer]ers Specific information about product # Needed 1 Reason patient is asking for this supply? Patient Active Problem List Diagnosis Code ??? Chronic back pain M54.9, G89.29 ??? Anxiety F41.9 ??? Myalgia and myositis, unspecified [id number] ??? Hepatitis C, chronic (HCC) B18.2 ??? Opioid dependence (HCC) F11.20 ??? History of cervical cancer Z85.41 ??? Neuropathy G62.9 ??? 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 Insomnia G47.00 ??? Major depressive disorder F32.9 ??? Pulmonary nodules R91.8 ??? History of heroin abuse Z87.898 ??? Morbid obesity (HCC) E66.01 ? ? Hyperlipidemia LDL goal <100 E78.5 Have you received this supply before? If yes , when?: yes - Have you discussed the need for this supply with a provider at a recent visit? YES If yes, with who and when? N/A When completed: Fax to other office/MD at fax # Have you told the patient it will take 7-10 days for completion of this request? YES documented in this encounter Plan of Treatment Not on file documented as of this encounter Visit Diagnoses Not on filedocumented in this encounter Care Teams Liquefaction Supervisor Relationship Specialty Start Date End Date Tricia Duff-MD Stephane PCP - General Internal Medicine 02/12/15 01/31/18 Amy Hernandez MD PCP - General Internal Medicine 02/01/18 06/03/18 Jean-Paul Carranza MD PCP - General Internal Medicine 06/04/18 11/10/19 Kyle Chavez MD [address] [place] [address] PCP - General Internal Medicine 11/11/19 11/21/22 [facility], Pcp [address] [place], [place] [phone] PCP - General Internal Medicine 11/22/22 11/24/22 Kyle Chavez MD [address] [place] [address] PCP - General Internal Medicine 11/25/22 Bravo Edwards MD, PHD [address] [place] [address] Specialist Neurosurgery 06/10/21 documented as of this encounter
--- OUTSIDE RECORDS SUMMARY | 2024-05-29 15:17 | XMS_ITS | Encounter Summary ---
Author Organization [facility] Address [address] [place] [address] Care Team Providers Care Recreational Leader Name Role Phone Jean-Paul Carranza MD Primary Care Provider Unavail Kyle Camejo MD Primary Care Provider [phone] Bravo Edwards MD, PHD Unavailable [facility] Primary Care Provider UnavailKyle Putnam MD Primary Care Provider [phone] Encounter Details Date Type Department Care Team Description 09/25/2018 Release of Information Medical Records [address] [place] [address] Abstract, Provider Social History Tobacco Use Types [...] on filedocumented in this encounter Care Teams Recreational Leader Relationship Specialty Start Date End Date Jean-Paul Carranza MD PCP - General Internal Medicine 06/04/18 11/10/19 Kyle Chavez MD [address] [place] [address] PCP - General Internal Medicine 11/11/19 11/21/22 [facility], Pcp [address] [place] [address] PCP - General Internal Medicine 11/22/22 11/24/22 Kyle Chavez MD [address] [place] [address] PCP - General Internal Medicine 11/25/22 Bravo Edwards MD, PHD [address] [place] [address] Specialist Neurosurgery 06/10/21 documented as of this encounter
--- OUTSIDE RECORDS SUMMARY | 2024-05-29 15:17 | XMS_ITS | Encounter Summary ---
Author Organization [facility] Address [address] [place] [address] Care Team Providers Care Tire Center Manager Name Role Phone Bravo Edwards MD, PHD Unavailable Unava ilable Kyle Chavez MD Primary Care Provider [phone] Encounter Details Date Type Department Care Team Description 11/07/2023 Pt. Non Urgent Medical Question Adult Medicine [address] [phone] Kyle Chavez MD [address] [place] [phone] Social History Tobacco Use Types Packs/Day Years [...] on filedocumented in this encounter Care Teams Tire Center Manager Relationship Specialty Start Date End Date Kyle Chavez MD [address] [place] [id number] PCP - General Internal Medicine 11/25/22 Bravo Edwards MD, PHD Specialist Neurosurgery 06/10/21 documented as of this encounter
--- OUTSIDE RECORDS SUMMARY | 2024-05-29 15:17 | XMS_ITS | Encounter Summary ---
Author Organization [facility] Address [address] [place] [address] Care Team Providers Care Metal Dresser Name Role Phone Kyle Chavez MD Primary Care Provider [phone] Reason for Visit * Reason Onset Date Comments Fitting for DME 05/14/2024 Rollator walker Encounter Details Date Type Department Care Team ([facility] st Contact Info) Description 05/14/2024 Telephone Adult Medicine [facility] [address] [place] [phone] Kyle Chavez MD [address] [place] [address] Fitting for DME (Rollator walker) Social History Tobacco Use Types Packs/Day Years Used Date Smoking Tobacco: Never Assessed Sex and Gender Information Value Date Recorded Sex Assigned at Not on file Gender Identity Not on file Sexual Orientation Not on file Job Start Date Occupation Industry Not on file Not on file Not on file documented as of this encounter Progress Notes * Marcelina Soria RN - 05/14/2024 1:24 PM EST An appointment was made for her to be seen in the office on 06/06/24 at 10:[address] Chavez. She is also requesting a rollator walker. She has had one in the past but states it is so old the wheels are falling off. She states the order needs to be sent via [facility]. * Nancy Chavez LPN - 05/14/2024 1:00 PM EST Please triage due to pain after surgery... did she call surgeon?? * Britt Medrano - 05/14/2024 8:38 AM EST Patient is looking to book Post op appt but don't see anything priya ible until end of june. PT would like to be seen sooner due to having pain from surgery. Please advice. documented in this encounter Plan of Treatment Upcoming Encounters Date Type Department Care Team (Late st Contact Info) Description 06/06/2024 10:30 AM EST Office Visit [address] [phone] Kyle Chavez MD [address] [place] [address] 09/09/2024 2:30 PM EDT Office Visit [address] [phone] Kyle Chavez MD [address] [place] [address] documented as of this encounter Visit Diagnoses Not on filedocumented in this encounter Care Teams Metal Dresser Relationship Specialty Start Date End Date Kyle Chavez MD PCP - General Internal Medicine 11/11/19 documented as of this encounter
--- OUTSIDE RECORDS SUMMARY | 2024-05-29 15:17 | XMS_ITS | Encounter Summary ---
Author Organization [facility] Address [address] [place] [address] Care Team Providers Care Litigator Name Role Phone Kyle Chavez MD Primary Care Provider [phone] Bravo Edwards MD, PHD Unavailable [facility], Pcp Primary Care Provider [facility] Kyle Chavez MD Primary Care Provider Encounter Details Date Type Department Care Team Description 05/20/2021 Pt. Non Urgent Medic al Question Adult Medicine [address] [address] Mini Breen PA Social History Tobacco Use [...] Telephone Encounter - Manasa Longo M.A. - 05/20/2021 3:51 PM ESTFrom: Perla Dixon To: Jose Kelly Sent: 05/20/2021 3:49 PM EST Subject: Covid test I am all set for tomorrow's covid test. I never thought it would work out so well! I am sorry for getting upset. You did not cancel the appointment yet, did you? Please let me know if you did so I can cancel my trip. Thank you for everything...Perla documented in this encounter Plan of Treatment Not on file documented as of this encounter Visit Diagnoses Not on filedocumented in this encounter Care Teams Litigator Relationship Specialty Start Date End Date Kyle Chavez MD [address] [place] [address] PCP - General Internal Medicine 11/11/19 11/21/22 [facility] Pcp [address] [place], [place] [phone] PCP - General Internal Medicine 11/22/22 11/24/22 Kyle Chavez MD [address] [place] [address] PCP - General Internal Medicine 11/25/22 Bravo Edwards MD, PHD [address] [place], [place] [phone] Specialist Neurosurgery 06/10/21 documented as of this encounter
--- OUTSIDE RECORDS SUMMARY | 2024-05-29 15:17 | XMS_ITS | Encounter Summary ---
Author Organization [facility] Address [address] [place] [address] Care Team Providers Care Retread Technician Name Role Phone Lucia Duff MD Primary Care Provider Amy Maldonado MD Primary Care Provider Unavail able Jean-Paul Carranza MD Primary Care Provider Unavail able Kyle Chavez MD Primary Care Provider [phone] Bravo Edwards MD, PHD Unavailable [facility], Pcp Primary Care Provider Unavailabl Kyle Washington MD Primary Care Provider [phone] Encounter Details Date Type Department Care Team Description 10/25/2017 Tailer Out Report Medical Records [address] [place] [address] Ramon Uribe MD [address] [place] [address] [address] [facility] [place] [address] Social History Tobacco Use Types Packs/Day Years [...] on filedocumented in this encounter Care Teams Retread Technician Relationship Specialty Start Date End Date Lucia Duff MD PCP - General Internal Medicine 02/12/15 01/31/18 Amy Hernandez MD PCP - General Internal Medicine 02/01/18 06/03/18 Jean-Paul Carranza MD PCP - General Internal Medicine 06/04/18 11/10/19 Kyle Chavez MD [address] [place] [address] PCP - General Internal Medicine 11/11/19 11/21/22 [facility], Pcp [address] [place], [place] [phone] PCP - General Internal Medicine 11/22/22 11/24/22 Kyle Chavez MD [address] [place] [address] PCP - General Internal Medicine 11/25/22 Bravo Edwards MD, PHD [address] [place] [address] Specialist Neurosurgery 06/10/21 documented as of this encounter
--- OUTSIDE RECORDS SUMMARY | 2024-05-29 15:17 | XMS_ITS | Encounter Summary ---
Author Organization [facility] Address [address] [place] [address] Care Team Providers Care Spikemaking Supervisor Name Role Phone Lucia Duff MD Primary Care Provider Amy Maldonado MD Primary Care Provider Unavail able Jean-Paul Carranza MD Primary Care Provider Unavail able Kyle Chavez MD Primary Care Provider [phone] Bravo Edwards MD, PHD Unavailable [facility], Pcp Primary Care Provider Unavailabl Kyle Washington MD Primary Care Provider [phone] Encounter Details Date Type Department Care Team Description 07/20/2016 Orders Only Adult Medicine [address] [address] Lucia Duff MD Controlled type 2 diabetes mellitus with diabetic neuropathy, without long-term current use of insulin (HCC); Hyperlipidemia LDL goal <100 Social History Tobacco Use Types Packs/Day Years Used Date Smoking Tobacco: Every Day Cigarettes 0.5 Started: 1980 Smokeless Tobacco: Never Alcohol Use [...] documented as of this encounter Results * MICROALBUMIN/CREATININE, URINE (12/17/2016 1:59 PM EDT) CREAT,RANDOM URINE 60 mg/dL 12/17/2016 2:42 PM EDT [facility] MICROALBUMIN, RANDOM 2.9 0.0 - 29.0 mg/L 12/17/2016 2:42 PM [facility] MICROALB/CRE RATIO RANDOM 4.8 <30.0 mg/g 12/17/2016 2:42 PM T [facility] 12/17/2016 1:59 PM EDT 12/17/2016 1:59 PM EDT Lucia Duff MD LAB Performing Organization Address City/[facility] Co de Phone Number [address] * (ABNORMAL) LIPID PROFILE (12/17/2016 1:59 PM EDT) Cholesterol 232(H) 0 - 200 mg/dL 12/17/2016 2:55 PM T [facility] TRIGLYCERIDES 613(H) 0 - 150 mg/dL 12/17/2016 3:01 PM T [facility] Comment: If Triglycerid e value is =>500, LDL is not meaningful HDL CHOLESTEROL 24(L) >40 mg/dL 7 2:55 PM [facility] TC-HDLC RATIO 10(H) 0.0 - 4.4 mg/dL 12/17/2016 2:55 PM T [facility] 12/17/2016 1:59 PM EDT 12/17/2016 1:59 PM EDT Lucia Duff MD LAB Performing Organization Address [facility] Co de Phone Number [address] * (ABNORMAL) HEMOGLOBIN A1C (12/17/2016 1:59 PM EDT) Glycosylated Hemoglobin A1C 10.7(H) 4.0 - 6.0 % 12/17/2016 2:39 PM T [facility] Comment: HbA1C VALUES MAY NOT ACCURATELY REFLECT MEAN BLOOD GLUCOSE IN PATIENTS WITH HEMOGLOBIN VARIANTS SUCH HbF, HbS. 12/17/2016 1:59 PM EDT 12/17/2016 1:59 PM EDT Lucia Duff MD LAB [facility] [address] [facility] * (ABNORMAL) COMPREHENSIVE METABOLIC PANEL (12/17/2016 1:59 PM EDT) GLUCOSE 360(H) 70 - 100 mg/dL 12/17/2016 2:55 PM T [facility] Comment: Reference range applicable to fasting specimens only Based on recommendations from the ADA and AACE, the fasting glucose reference range has been changed to 70-100 mg/dL. ??This change is effective September 14, 2009 BUN 9 5 - 25 mg/dL 12/17/2016 2:55 PM [facility] CREAT 0.6(L) 0.7 - 1.5 mg/dL 12/17/2016 2:55 PM [facility] BUN/CREAT RATIO 15.0 6.0 - 20.0 12/17/2016 2:55 PM [facility] GFR > 60 >60 12/17/2016 3:01 PM [facility] Comment: If patient is -Romanian, multiply result by 1.21 Chronic Kidney Disease: < 60 ml/min/1.73 square meters Kidney Failure: < 15 ml/min/1.73 square meters Sodium 137 133 - 145 mEq/L 12/17/2016 2:55 PM [facility] Potassium 4.4 3.5 - 5.5 mEq/L 12/17/2016 2:55 PM [facility] Chloride 95(L) 96 - 108 mEq/L 12/17/2016 3:01 PM [facility] CO2 28.6 21.0 - 32.0 mEq/L 12/17/2016 2:55 PM [facility] CALCIUM 10.1 8.5 - 10.5 mg/dL 12/17/2016 2:55 PM EDT [facility] TOTAL PROTEIN 7.2 6.0 - 8.3 gm/dL 12/17/2016 2:55 PM EDT [facility] Albumin 4.2 3.2 - 5.6 gm/dL 12/17/2016 2:55 PM EDT [facility] GLOBULIN 3.0 1.9 - 4.4 gm/dL 12/17/2016 2:55 PM EDT [facility] A/G RATIO 1.4 1.1 - 2.3 12/17/2016 2:55 PM EDT [facility] BILI,TOTAL 0.3 0.0 - 1.2 mg/dL 12/17/2016 2:55 PM EDT [facility] AST (SGOT) 16 10 - 42 U/L 12/17/2016 2:55 PM EDT [facility] ALT( SGPT) 20 10 - 60 U/L 12/17/2016 2:55 PM EDT [facility] ALK PHOS 116 42 - 121 U/L 12/17/2016 2:55 PM EDT [facility] 12/17/2016 1:59 PM EDT 12/17/2016 1:59 PM EDT Lucia Duff MD LAB Performing Organization Address City/State/[facility] Co de Phone Number [facility] [address] [place] [address] documented in this encounter Visit Diagnoses Diagnosis Controlled type 2 diabetes mellitus with diabetic neuropathy, without long-term current use of insulin (HCC) Hyperlipidemia LDL goal <100 Other and unspecified hyperlipidemia documented in this encounter Care Teams Spikemaking Supervisor Relationship Specialty Start Date End Date Lucia Duff MD PCP - General Internal Medicine 02/12/15 01/31/18 Amy Hernandez MD PCP - General Internal Medicine 02/01/18 06/03/18 Jean-Paul Carranza MD PCP - General Internal Medicine 06/04/18 11/10/19 Kyle Chavez MD [address] [place] [address] PCP - General Internal Medicine 11/11/19 11/21/22 [facility], [address] [address] PCP - General Internal Medicine 11/22/22 11/24/22 Kyle Chavez MD [address] [place] [address] PCP - General Internal Medicine 11/25/22 Bravo Edwards MD, PHD [address] [place] [address] Specialist Neurosurgery 06/10/21 documented as of this encounter
--- OUTSIDE RECORDS SUMMARY | 2024-05-29 15:17 | XMS_ITS | Encounter Summary ---
Author Organization [facility] Address [address] [place] [address] Care Team Providers Care Tax Compliance Representative Name Role Phone Jean-Paul Carranza MD Primary Care Provider Unavail Kyle Camejo MD Primary Care Provider [phone] Bravo Edwards MD, PHD Unavailable [facility], Pcp Primary Care Provider UnavailKyle Putnam MD Primary Care Provider [phone] Encounter Details Date Type Department Care Team Description 09/18/2018 Landscape Horticulture Instructor Report Medical Records [address] [place] [address] Aisha, [place] Social History Tobacco Use Types Packs/Day Years [...] on filedocumented in this encounter Care Teams Tax Compliance Representative Relationship Specialty Start Date End Date Jean-Paul Carranza MD PCP - General Internal Medicine 06/04/18 11/10/19 Kyle Chavez MD [address] [place] [address] PCP - General Internal Medicine 11/11/19 11/21/22 [facility], Pcp [address] [place], [place] [id number] PCP - General Internal Medicine 11/22/22 11/24/22 Kyle Chavez MD [address] [place] [address] PCP - General Internal Medicine 11/25/22 Bravo Edwards MD, PHD [address] [place] [address] Specialist Neurosurgery 06/10/21 documented as of this encounter
--- OUTSIDE RECORDS SUMMARY | 2024-05-29 15:17 | XMS_ITS | Encounter Summary ---
Author Organization [facility] Address [address] [place] [address] Care Team Providers Care Cutter Apprentice Hand Name Role Phone Lucia Duff MD Primary Care Provider Amy Maldonado MD Primary Care Provider Unavail able Jean-Paul Carranza MD Primary Care Provider Unavail able Kyle Chavez MD Primary Care Provider [phone] Bravo Edwards MD, PHD Unavailable [facility], Pcp Primary Care Provider Unavailabl e Kyle Chavez MD Primary Care Provider [phone] Reason for Visit * Reason Onset Date Comments Faxed Refill 03/30/2017 Encounter Details Date Type Department Care Team Description 03/30/2017 Telephone Adult [address] [address] Lucia Duff MD Faxed Refill Social History Tobacco Use Types Packs/Day [...] encounter Miscellaneous Notes * Telephone Encounter - Darya Sow - 03/30/2017 3:44 PM EST Patient would like script to be: E-PRESCRIBED/FAXED TO PHARMACY WHEN WAS THE PATIENT'S LAST APPOINTMENT IN ADULT MEDICINE? 02/24/17 WHEN WAS THE LAST TIME THE PATIENT SAW THEIR PCP? Patient has never seen pcp Does patient have an upcoming appointment? Yes 05/03/2017 (THE MEDICATION REQUESTED IS ON THE MED LIST ABOVE) All of the medications requested were on the CURRENT MEDS list Did you check the Pharmacy information above?: YES Patient wants: 30 -day supply Is this a mail order prescription request ? NO Patients current insurance carrier is: Payor: [employer] / Plan: [facility] INS[facility]ANCE / Product Type: OTHER documented in this encounter Plan of Treatment Not on file documented as of this encounter Visit Diagnoses Not on filedocumented in this encounter Care Teams Cutter Apprentice Hand Relationship Specialty Start Date End Date Lucia Duff MD PCP - General Internal Medicine 02/12/15 01/31/18 Amy Hernandez MD PCP - General Internal Medicine 02/01/18 06/03/18 Jean-Paul Carranza MD PCP - General Internal Medicine 06/04/18 11/10/19 Kyle Chavez MD [address] [place] [address] PCP - General Internal Medicine 11/11/19 11/21/22 [facility], [place] [phone] PCP - General Internal Medicine 11/22/22 11/24/22 Kyle Chavez MD [address] [place] [address] PCP - General Internal Medicine 11/25/22 Bravo Edwards MD, PHD [address] [place] [address] Specialist Neurosurgery 06/10/21 documented as of this encounter
--- OUTSIDE RECORDS SUMMARY | 2024-05-29 15:17 | XMS_ITS | Encounter Summary ---
Author Organization [facility] Address [address] [place] [address] Care Team Providers Care Recreational Facilities Motel Manager Name Role Phone Jean-Paul Carranza MD Primary Care Provider Unavail Kyle Camejo MD Primary Care Provider [phone] Bravo Edwards MD, PHD Unavailable [facility], Pcp Primary Care Provider UnavailKyle Putnam MD Primary Care Provider [phone] Reason for Visit * Reason Onset Date Comments Faxed Refill 06/27/2019 Encounter Details Date Type Department Care Team Description 06/27/2019 Refill Adult Medicine [address] [address] Jean-Paul Carranza MD Faxed Refill Social History Tobacco Use [...] Miscellaneous Notes * Telephone Encounter - Damaris Gonzalez - 06/27/2019 1:44 PM EST Patient would like script to be: E-PRESCRIBED/FAXED TO PHARMACY WHEN WAS THE PATIENT'S LAST APPOINTMENT IN ADULT MEDICINE? 06-24-2019 WHEN WAS THE LAST TIME THE PATIENT SAW THEIR PCP? Same as above Does patient have an upcoming appointment? No-patient refused appointment, will call back to book appointment (THE MEDICATION REQUESTED IS ON THE MED [...] N/A Patients current insurance carrier is: Payor: [facility] / Plan: [facility] / Product Type: HMO [id number] documented in this encounter Plan of Treatment Not on file documented as of this encounter Visit Diagnoses Not on filedocumented in this encounter Care Teams Recreational Facilities Motel Manager Relationship Specialty Start Date End Date Jean-Paul Carranza MD PCP - General Internal Medicine 06/04/18 11/10/19 Kyle Chavez MD [address] [place] [address] PCP - General Internal Medicine 11/11/19 11/21/22 [place] [phone] PCP - General Internal Medicine 11/22/22 11/24/22 Kyle Chavez MD [address] [place] [address] PCP - General Internal Medicine 11/25/22 Bravo Edwards MD, PHD [address] [place] [address] Specialist Neurosurgery 06/10/21 documented as of this encounter
--- OUTSIDE RECORDS SUMMARY | 2024-05-29 15:17 | XMS_ITS | Encounter Summary ---
Author Organization [facility] Address [address] [place] [address] Care Team Providers Care Conflict Resolution Professional Name Role Phone Kyle Chavez MD Primary Care Provider [phone] Bravo Edwards MD, PHD Unavailable [facility], Pcp Primary Care Provider [facility] Kyle Chavez MD Primary Care Provider [phone] Reason for Visit * Reason Onset Date Comments infectious disease 05/22/2021 COVID testing Encounter Details Date Type Department Care Team Description 05/22/2021 Pt. Non Urgent Medic al Question Adult Medicine [address] [address] Mini Breen PA Social History Tobacco Use [...] Progress Notes * Carrie Roy M.A. - 05/24/2021 7:21 AM EST Please see [facility] message for COVIS testing assistance, thank you. documented in this encounter Miscellaneous Notes * Telephone Encounter - Carrie Roy M.A. - 05/24/2021 7:21 AM ESTFrom: Perla Dixon To: Jose Robin Sent: 05/22/2021 2:52 PM EST Subject: Covid tests [facility]gent [facility] [address] in [place] does not take my health insurance nor do any of them so Icannot go to an urgent care facility. Unless it's [facility]. Does [facility] do covid testing at all? I do need to have my antibiotic changed but like I said I can't leave my mother alone long. documented in this encounter Plan of Treatment Not on file documented as of this encounter Visit Diagnoses Not on filedocumented in this encounter Care Teams Conflict Resolution Professional Relationship Specialty Start Date End Date Kyle Chavez MD [address] [place] [address] PCP - General Internal Medicine 11/11/19 11/21/22 [facility], Pcp [address] [place] [address] PCP - General Internal Medicine 11/22/22 11/24/22 Kyle Chavez MD [address] [place], [place] [phone] PCP - General Internal Medicine 11/25/22 Bravo Edwards MD, PHD [address] [place], [place] [phone] Specialist Neurosurgery 06/10/21 documented as of this encounter
--- OUTSIDE RECORDS SUMMARY | 2024-05-29 15:17 | XMS_ITS | Encounter Summary ---
Author Organization [facility] Address [address] [place] [address] Care Team Providers Care Casino Beverage Server Name Role Phone Kyle Chavez MD Primary Care Provider [phone] Encounter Details Date Type Department Care Team (Late st Contact Info) Description 05/16/2024 Telephone Adult Medicine [address] [address] Kyle Chavez MD [address] [place] [address] Social History Tobacco Use Types Packs/Day Years Used Date Smoking Tobacco: Never Assessed Sex and Gender Information Value Date Recorded Sex Assigned at Not on file Gender Identity Not on file Sexual Orientation Not on file Job Start Date Occupation Industry Not on file Not on file Not on file documented as of this encounter Progress Notes * Marilin Lyon MA - 05/23/2024 2:[address] Chavez this patient has a follow up with the surgeon on 05/29/24. She will discuss any issues with them. * Kyle Chavez MD - 05/16/2024 8:06 AM EST Pt looking for hospital follow up status post neck fusion, can we please see if pt has had follow up with the surgeon? documented in this encounter Plan of Treatment Upcoming Encounters Date Type Department Care Team (Late st Contact Info) Description 06/06/2024 10:30 AM EST Office Visit Adult Medicine [address] [phone] Kyle Chavez MD [address] [place] [address] 09/09/2024 2:30 PM EDT Office Visit Adult Medicine [address] [phone] Kyle Chavez MD [address] [place] [address] documented as of this encounter Visit Diagnoses Not on filedocumented in this encounter Care Teams Casino Beverage Server Relationship Specialty Start Date End Date Kyle Chavez MD PCP - General Internal Medicine 11/11/19 documented as of this encounter
--- OUTSIDE RECORDS SUMMARY | 2024-05-29 15:17 | XMS_ITS | Encounter Summary ---
Author Organization [facility] Address [address] [place] [address] Care Team Providers Care Central Service Tech Name Role Phone Kyle Chavez MD Primary Care Provider [phone] Bravo Edwards MD, PHD Unavailable [facility], Pcp Primary Care [facility] Kyle Chavez MD Primary Care Provider [phone] Reason for Visit * Reason Onset Date Comments Neck Pain 07/08/2021 Shoulder Pain 07/08/2021 Encounter Details Date Type Department Care Team Description 07/08/2021 Telephone [facility] Medical [facility] [place] [address] [address] Walker Khan PA-C [address] [address] Neck Pain; Shoulder Pain Social History Tobacco Use Types Packs/Day Years [...] have Coronavirus / COVID-19? No / Unsure 06/10/2021 2:06 PM EST documented as of this encounter Miscellaneous Notes * Telephone Encounter - Walker Khan PA-C - 07/09/2021 3:28 PM EST I spoke to her, hurts under her ribs too. Maybe strained a muscle in back. Enc, heat, hot shower, take narcotics as prescribed by pain doctors etc. She is due to f/u on 07/21 to review xrays and CT * Telephone Encounter - Danitza Maldonado - 07/08/2021 11:11 AM EST Pt. C/o neck, shoulder and right side pain. She says all she did was lift a half cup of coffee and a small cup with three pills in it. [phone] documented in this encounter Plan of Treatment Not on file documented as of this encounter Visit Diagnoses Not on filedocumented in this encounter Care Teams Central Service Tech Relationship Specialty Start Date End Date Kyle Chavez MD [address] [place] [address] PCP - General Internal Medicine 11/11/19 11/21/22 [facility], Pcp [address] [place] [address] PCP - General Internal Medicine 11/22/22 11/24/22 Kyle Chavez MD [address] [place] [address] PCP - General Internal Medicine 11/25/22 Bravo Edwards MD, PHD [address] [place] [address] Specialist Neurosurgery 06/10/21 documented as of this encounter
--- OUTSIDE RECORDS SUMMARY | 2024-05-29 15:17 | XMS_ITS | Clinical Summary ---
Author Organization [facility] Address [address] [place] [address] Care Team Providers Care Church Supervisor Name Role Phone Bravo Edwards MD, PHD Unavailable Mandava Kyle King MD Primary Care Provider [phone] Allergies Active Allergy Reactions Severity Noted Date Comments Augmentin 04/02/2015 Vomiting, diarrhea Can take Amoxicillin or Penicillin Cefaclor 02/25/2005 Angioedema, itchy Flurazepam 05/04/2015 Itching Nitrofurantoin 06/27/2019 Nausea, vomiting Hydrocodone-Acetaminophen 04/02/2015 Nausea, vomiting Medications Medication Sig Dispensed Refills Start Date End Date Status Buprenorphine HCl-Naloxone HCl (SUBOXONE) 8-[address] 2 Tabs under the tongue. 0 Active FREESTYLE LITE strip Test blood sugar 3 times daily 300 Strip 3 04/18/2017 Active FREESTYLE LANCETS Misc Test blood sugar 3 times daily 300 Each 3 04/18/2017 Active Estrogens, Conjugated (PREMARIN VA) Place vaginally. 0 Activ e Incontinence Supply Disposable (BLADDER CONTROL PADS REGULAR) Misc 1 Each by Does not apply route 4 times daily. 120 Each 0 07/26/2017 Active glucose monitoring kit (FREESTYLE) monitoring kit Test blood sugar daily 1 Kit 0 10/10/2019 Active polyethylene glycol (GLYCOLAX) 17 GM/SCOOP powder TAKE 17 GRAMS BY MOUTH MIXED WITH WATER OR JUICE 1 TO 2 TIMES DAILY NEEDED FOR CONSTIPATION 510 g 5 05/12/2020 Active Blood Glucose Calibration (FreeStyle Control Solution) Liquid Use to calibrate each new bottle of test strips 1 Each 1 08/19/2020 Active ammonium lactate (AMLACTIN) 12 % creamIndications:X erosis of skin Apply to both feet daily for dry skin and calluses 385 g 3 10/29/2020 Active sumatriptan (IMITREX) 50 MG tablet TAKE 1 TABLET BY MOUTH AT ONSET OF HEADACHE. MAY REPEAT DOSE 1 TIME AFTER 2 HOURS, NEEDED. MAX 2 IN 24 HOURS 8 Tablet 5 12/14/2021 Active naproxen (NAPROSYN) 500 MG tablet TAKE 1 TABLET BY MOUTH TWICE DAILY WITH MEALS 180 Tablet 0 01/30/2023 Active Diclofenac Sodium 1 % Gel Apply 1 g topically 2 times daily. 200 g 1 02/21/2023 Active lidocaine (LIDODERM) 5 % Place 1 Patch onto the skin every 24 hours. Apply for no more than 12 hours in any 24 hour period. 90 Patch 1 05/09/2023 Active nystatin (MYCOSTATIN) cream APPLY EXTERNALLY TO THE AFFECTED AREA TWICE DAILY 30 g 0 05/17/2023 Active nystatin (MYCOSTATIN) powder Apply 1 g topically 4 times daily for 360 days. 120 g 11 05/17/2023 Active Acetaminophen 500 MG Cap Take 2 Capsules by mouth every 6 hours as needed (pain). 60 Capsule 0 11/15/2023 Active loperamide (IMODIUM) 2 MG capsule Take 1 Capsule by mouth 4 times daily as needed for Diarrhea for up to 10 days. 20 Capsule 0 12/22/2023 Active tizanidine (Zanaflex) 4 MG tablet Take 1 Tablet by mouth every 6 hours as needed for Muscle spasms for up to 10 days. 40 Tablet 0 12/29/2023 Active famotidine (PEPCID) 20 MG tablet Take 1 Tablet by mouth daily. 90 Tablet 0 01/24/2024 Active trazodone (DESYREL) 100 MG tablet Take 1 Tablet by mouth every evening. 90 Tablet 0 01/24/2024 Active venlafaxine (EFFEXOR-XR) 150 MG 24 hr capsule Take 2 Capsules by mouth daily. 180 Capsule 0 01/24/2024 Active tizanidine (Zanaflex) 4 MG tablet Take 1 Tablet by mouth every 6 hours as needed for Muscle spasms for up to 10 days. 40 Tablet 0 02/09/2024 Active glycopyrrolate (ROBINUL) 2 MG tablet Take 1 Tablet by mouth 3 times daily. 270 Tablet 0 02/09/2024 Active pregabalin (LYRICA) 150 MG capsule Take 1 Capsule by mouth 3 times daily. 270 Capsule 1 02/12/2024 Active acetaminophen (TYLENOL) 500 MG tablet Take 1 Tablet by mouth every 6 hours as needed for Pain or Fever for up to 10 days. 40 Tablet 0 02/23/2024 Active Active Problems Problem Noted Date Acid reflux 03/23/2020 Type 2 diabetes mellitus, uncontrolled, with neuropathy 02/28/2018 Diabetic neuropathy 02/28/2018 Gait instability 02/28/2018 Overview: Utilizes walker Abnormal brain MRI 02/28/2018 Overview: White matter lesions suspicious for MS and cortical atrophy. 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 Cox and Dr. Long in 06/2014. FOLLOWS WITH BS gynoncDrAlexander Uribe Resolved Problems Problem Noted Date Resolved Date Lung nodule 06/01/2017 02/28/2018 Type II diabetes mellitus, uncontrolled 03/29/20 17 02/28/2018 Rectus diastasis 03/29/2017 04/27/2018 History of hepatitis C 06/01/2015 8 Neuropathy 03/31/2015 02/28/2018 Controlled type 2 diabetes m fred with neurological manifestations 03/31/2015 02/28/2018 Myalgia and myositis, unspecified 02/25/2005 02/28/2018 Overview: IMO update Chronic hepatitis C without hepatic coma 03/21/2018 Overview: Low level viral load (18,000) Detectable June 2014 Undetectable May 2015 with no treatment Repeat in 6 months Heroin dependence 03/21/2018 Cervical cancer 04/27/2018 Overview: finished tx 06/06/2014 Immunizations Name Administration Dates Next Due COVID-19 (Moderna) 11/24/2021,,09/21/2020,08/24 Influenza (> 6 Months) 04/26/2020 Influenza Flu (PT Reported) 04/26/2020 Influenza Vaccine-preservati ve Free-quadrivalent 4 Years 02/27/2023 Meningococcal (MENOMUNE) 11/16/2000 PREVNAR 20 (PATIENT REPORTED) 11/24/2021 Tdap 11/24/2021 Family History Medical History Relation Name Comments seasonal allergies Mother seasonal allergies Sister seasonal allergies Son 1 seasonal allergies Son 2 Relation Name Status Comments Mother Sister Son 1 Son 2 Social History Tobacco Use Types Packs/Day Years [...] file Not on file Not on file Last Filed Vital Signs Vital Sign Reading Time Taken Comments Blood Pressure 116/58 02/23/2024 4:30 PM EDT Pulse 79 02/23/2024 4:30 PM EDT Temperature 36.4 ??C (97.6 ??F) 02/23/2024 4:30 PM ED T Respiratory Rate 12 12/18/2023 1:38 PM EDT Oxygen Saturation 94% 02/23/2024 4:30 PM EDT Inhaled Oxygen Concentration - - Weight 76.7 kg (169 lb) 12/18/2023 1:38 PM EDT Height 160 cm (5' 3 ) 12/18/2023 1:38 PM EDT Body Mass Index 29.94 12/18/2023 1:38 PM EDT Plan of Treatment Health Maintenance Due Date Last Done Comments DEPRESSION SCREEN 1975 BASELINE HEALTH EXAM 40-64 2003 SHINGLES VACCINE (1 of 2) 2013 MAMMOGRAM 06/30/2016 07/01/2015, 11/2013 (External Completion), 12/06/2013, Additional history exists CERVICAL CANCER SCREENING 10/09/20162013 (External Completion), 10/09/2013 COLON CANCER SCREEN WITH STOOL CARD 2018 2017 DIABETES: ANNUAL EYE EXAM 10/12/20212020, 09/11/2018, 03/27/2017, Additional history exists Covid-19 Vaccine ( season) 2023 11/24/2021, 04/07/2021, 09/21/2020, Additional history exists INFLUENZA (#1) 2023 02/27/2023, 04/01, 04/26/2020, Additional history exists DIABETES: BLOOD SUGAR CONTROL TEST (HGBA1C) 04/25/2024 01/25/2024, 09/07/2023, 02/27/2023, Additional history exists BMI CHECK/ADVISE 05/01/2024 09/12/2023, , 09/21/2022, Additional history exists DIABETES: ANNUAL FOOT EXAM 11/20/202411/20, 10/27/2021, 11/15/2018, Additional history exists DIABETES/HEART DISEASE: ANNUAL CHOLESTEROL (LDL) 01/24/2025 01/25/2024, 09/07/2023, 09/13/2022, Additional history exists DIABETES: ANNUAL URINE PROTEIN TEST (MICROALBUMIN) 01/24/2025 01/25/2024, 09/13/2022, 11/13/2020, Additional history exists TOBACCO CHECK/ADVISE 02/27/2025 02/27/2023, 05/23/2018, 03/21/2018, Additional history exists PNEUMOCOCCAL VACCINE FOR HIGH RISK PATIENTS (#2) 2028 11/24/2021, 11/24/2021 DTAP/TDAP/TD (2 - Td or Tdap) 11/25/2031 11/24/2021 HEPATITIS C SCREENING Addressed 02/24/2017 (Excepti on) Overridden with the intention of not completing the topic Care Teams Church Supervisor Relationship Specialty Start Date End Date Kyle Chavez MD [address] [place] [address] [phone] PCP - General Internal Medicine 11/25/22 Bravo Edwards MD, PHD Specialist Neurosurgery 06/10/21
--- OUTSIDE RECORDS SUMMARY | 2024-05-29 15:17 | XMS_ITS | Encounter Summary ---
Author Organization [facility] Address [address] [place] [address] Care Team Providers Care Steam Tender Name Role Phone Kyle Chavez MD Primary Care Provider [phone] Reason for Visit * Reason Onset Date Comments Fitting for DME 05/20/2024 Encounter Details Date Type Department Care Team ([facility] Contact Info) Description 05/20/2024 Telephone Adult Medicine [address] [place] [phone] Abi Blount, IHSAN Fitting for DME Social History Tobacco Use Types Packs/Day Years Used Date Smoking Tobacco: Never Assessed Sex and Gender Information Value Date Recorded Sex Assigned at Not on file Gender Identity Not on file Sexual Orientation Not on file Job Start Date Occupation Industry Not on file Not on file Not on file documented as of this encounter Progress Notes * Margaret Meier LPN - 05/23/2024 7:32 AM EST Rx signed and faxed to Matthew @ [phone] * Margaret Meier LPN - 05/21/2024 7:47 AM EST Rx to Dr Chavez to sign * Abi Blount RN - 05/20/2024 4:07 PM EST Has been using her mother's rolator walker and the wheels have now fallen off. Asking for a new Rolator walker Please advise documented in this encounter Plan of Treatment Upcoming Encounters Date Type Department Care Team (Late st Contact Info) Description 06/06/2024 10:30 AM EST Office Visit Adult [address] [phone] Kyle Chavez MD [address] [place] [address] 09/09/2024 2:30 PM EDT Office Visit [address] [phone] Kyle Chavez MD [address] [place] [address] documented as of this encounter Visit Diagnoses Diagnosis Gait instability- Primary Abnormality of gait Other diabetic neurological complication associated with type 2 diabetes mellitus (CMS/[facility]) documented in this encounter Orders General Supply Count Last Ordered Date First Or dered Date WALKER 1 05/21/2024 documented in this encounter Care Teams Steam Tender Relationship Specialty Start Date End Date Kyle Chavez MD PCP - General Internal Medicine 11/11/19 documented as of this encounter
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
--- OUTSIDE RECORDS SUMMARY | 2024-05-29 15:17 | XMS_ITS | Encounter Summary ---
Author Organization [facility] Address [address] [place] [address] Care Team Providers Care Procurement Professional Name Role Phone Lucia Duff MD Primary Care Provider Amy Maldonado MD Primary Care Provider Unavail able Jean-Paul Carranza MD Primary Care Provider Unavail able Kyle Chavez MD Primary Care Provider [phone] Bravo Edwards MD, PHD [facility]available [facility] Primary Care Provider Unavailabl Kyle Washington MD Primary Care Provider [phone] Encounter Details Date Type Department Care Team Description 04/07/2016 Release of Information Medical Records [address] [place] [id number] Abstract, Provider Social History Tobacco Use Types [...] on filedocumented in this encounter Care Teams Procurement Professional Relationship Specialty Start Date End Date Lucia Duff MD PCP - General Internal Medicine 02/12/15 01/31/18 Amy Hernandez MD PCP - General Internal Medicine 02/01/18 06/03/18 Jean-Paul Carranza MD PCP - General Internal Medicine 06/04/18 11/10/19 Kyle Chavez MD [address] [place] [address] PCP - General Internal Medicine 11/11/19 11/21/22 [facility], Pcp [address] [place], [place] [phone] PCP - General Internal Medicine 11/22/22 11/24/22 Kyle Chavez MD [address] [place] [address] PCP - General Internal Medicine 11/25/22 rBavo Edwards MD, PHD [address] [place] [address] Specialist Neurosurgery 06/10/21 documented as of this encounter
--- OUTSIDE RECORDS SUMMARY | 2024-05-29 15:17 | XMS_ITS | Encounter Summary ---
Author Organization [facility] Address [address] [place] [address] Care Team Providers Care Carpet Cleaning Technician Name Role Phone Bravo Edwards MD, PHD Unavailable Unava ilKyle Camejo MD Primary Care Provider [phone] Encounter Details Date Type Department Care Team Description 12/05/2023 Orders Only Medical Records [address] [place] [address] Julienne Pop DPM Social History Tobacco Use Types Packs/Day Years [...] Procedure Name Priority Date/Time Associated Diagnosis Comments OUTSIDE FOOT EXAM Routine 11/21/2023 documented in this encounter Results * OUTSIDE FOOT EXAM (11/21/2023) Julienne Pop DPM PERFORMABLES documented in this encounter Visit Diagnoses Not on filedocumented in this encounter Care Teams Carpet Cleaning Technician Relationship Specialty Start Date End Date Kyle Chavez MD [address] [place] [address] PCP - General Internal Medicine 11/25/22 Bravo Edwards MD, PHD Specialist Neurosurgery 06/10/21 documented as of this encounter
--- OUTSIDE RECORDS SUMMARY | 2024-05-29 15:18 | XMS_ITS | Encounter Summary ---
Author Organization [facility] Address [address] [place] [address] Care Team Providers Care Airport Baggage Screener Name Role Phone Kyle Chavez MD Primary Care Provider [phone] Bravo Edwards MD, PHD Unavailable [facility], Pcp Primary Care Provider [facility] Kyle Chavez MD Primary Care Provider [phone] Encounter Details Date Type Department Care Team Description 05/28/2021 Telephone Adult Medicine [facility] [address] [place] [address] [phone] Julienne Campbell PA-C [address] [place] [address] [phone] Social History Tobacco Use Types Packs/Day Years [...] have Coronavirus / COVID-19? Unable to assess 05/28/2021 10:09 AM EST documented as of this encounter Miscellaneous Notes * Telephone Encounter - Mary Barahona R.N. - 05/28/2021 2:42 PM EST She found some amoxicillin at home to take. * Telephone Encounter - Julienne Campbell PA-C - 05/28/2021 2:35 PM EST The appointment disappeared from my schedule. Please advise. Julienne Campbell PA-C * Telephone Encounter - Mary Barahona R.N. - 05/28/2021 12:10 PM EST Pt was not exposed to covid she just had a fever. Covid results received today and were negative. Pt states that she has no one to sit with her mother and no transportation. Pt states that she knows itis a sinus infection. Pt does not care if you keep her on the amoxicillin. She wants to keep theaudio. Please advise * Telephone Encounter - Julienne Campbell PA-C - 05/28/2021 11:44 AM EST Please offer the patient these 2 options: Firstly, take antibiotic as prescribed by her oral surgeon for sinusitis. Amoxicillin is indicated for the treatment of sinusitis. If she does not agree with this, she may contact the oral surgeon directly to discuss. Secondly, provide dates of COVID-19 exposure and dates of negative COVID-19 testing. If she has negative testing results within the last 72 hours and she wishes to be re-evaluated, please schedule in-office visit. However, given the fact that she is already been prescribed amoxicillin, I would not prescribe alternate antibiotic for same diagnosis. Thank you. Julienne Campbell PA-C documented in this encounter Plan of Treatment Not on file documented as of this encounter Visit Diagnoses Not on filedocumented in this encounter Care Teams Airport Baggage Screener Relationship Specialty Start Date End Date Kyle Chavez MD [address] [place] [address] PCP - General Internal Medicine 11/11/19 11/21/22 [facility], Pcp [address] [place], [place] [phone] PCP - General Internal Medicine 11/22/22 11/24/22 Kyle Chavez MD [address] [place] [address] PCP - General Internal Medicine 11/25/22 Bravo Edwards MD, PHD [address] [place] [address] Specialist Neurosurgery 06/10/21 documented as of this encounter
--- OUTSIDE RECORDS SUMMARY | 2024-05-29 15:18 | XMS_ITS | Encounter Summary ---
Author Organization [facility] Address [address] [place] [address] Care Team Providers Care Apple Solutions Consultant Name Role Phone Bravo Edwards MD, PHD Unavailable Unava Kyle King MD Primary Care Provider [phone] Encounter Details Date Type Department Care Team Description 10/16/2023 Pt. Non Urgent Medical Question Adult Medicine [address] [phone] Kyle Chavez MD [address] [place] [address] Social History Tobacco Use Types Packs/Day Years [...] Miscellaneous Notes * Telephone Encounter - Carmina Serrano L.P.N. - 10/16/2023 11:31 AM EDTFrom: Perla Dixon To: Jose Chavez Sent: 10/16/2023 11:29 AM EDT Subject: Hips I would like to schedule an appointment not necessarily with Dr. Chavez but I really need to see someone. I have been having to walk with a walker for some time now because of my hips. I was just seen August 29 I would like to see who I seen then. Please contact me to make an appointment. Thank you! documented in this encounter Plan of Treatment Not on file documented as of this encounter Visit Diagnoses Not on filedocumented in this encounter Care Teams Apple Solutions Consultant Relationship Specialty Start Date End Date Kyle Chavez MD [address] [place] [address] PCP - General Internal Medicine 11/25/22 Bravo Edwards MD, PHD Specialist Neurosurgery 06/10/21 documented as of this encounter
--- OUTSIDE RECORDS SUMMARY | 2024-05-29 15:18 | XMS_ITS | Encounter Summary ---
Author Organization [facility] Address [address] [place] [address] Care Team Providers Care Latent Print Examiner Name Role Phone Bravo Edwards MD, PHD Unavailable Unava ilable Kyle Chavez MD Primary Care Provider [phone] Encounter Details Date Type Department Care Team Description 10/23/2023 Pt. Non Urgent Medical Question Adult Medicine [address] [phone] Kyle Chavez MD [address] [place] [address] [phone] Social History Tobacco Use Types Packs/Day Years [...] on filedocumented in this encounter Care Teams Latent Print Examiner Relationship Specialty Start Date End Date Kyle Chavez MD [address] [place] [address] [phone] PCP - General Internal Medicine 11/25/22 Bravo Edwards MD, PHD Specialist Neurosurgery 06/10/21 documented as of this encounter
--- OUTSIDE RECORDS SUMMARY | 2024-05-29 15:18 | XMS_ITS | Encounter Summary ---
Author Organization [facility] Address [address] [place] [address] Care Team Providers Care Filenet Architect Name Role Phone Kyle Chavez MD Primary Care Provider [phone] Bravo Edwards MD, PHD Unavailable [facility], Pcp Primary Care Provider [facility] Kyle Chavez MD Primary Care Provider Encounter Details Date Type Department Care Team Description 05/28/2021 Telephone Adult Medicine [address] [phone] Kyle Chavez MD [address] [place] [address] [phone] Social History Tobacco Use Types Packs/Day Years [...] on filedocumented in this encounter Care Teams Filenet Architect Relationship Specialty Start Date End Date Kyle Chavez MD [address] [place] [phone] PCP - General Internal Medicine 11/11/19 11/21/22 [facility], Pcp [address] [place] [address] PCP - General Internal Medicine 11/22/22 11/24/22 Kyle Chavez MD [address] [place] [address] PCP - General Internal Medicine 11/25/22 Bravo Edwards MD, PHD [address] [place] [phone] Specialist Neurosurgery 06/10/21 documented as of this encounter
== END 2024-05-29 13:58 | disposition home or self-care (01) ==
PROVIDERS: PCP Internal Medicine; Visit Provider Physician Assistant
DX: Z98.1 Arthrodesis status (principal)
CPT/HCPCS: 99024

== ENCOUNTER → 2024-05-29 13:11 | Outpatient (BNVA) | payer OTHER, SELFPAY | PROVIDERS: PCP Internal Medicine; Visit Provider Physician Assistant | DX: Z98.1 Arthrodesis status (principal) | CPT/HCPCS: 99212 ==

== ENCOUNTER 2024-07-05 09:17 | Outpatient (REF) | payer OTHER, SELFPAY ==
--- NOTE | ~2024-07-05 | CT_ITS ---
EXAMINATION: CT CERVICAL SPINE WITHOUT CONTRAST CLINICAL INFORMATION: Status post arthrodesis. COMPARISON: None available. TECHNIQUE: Contiguous axial images through the cervical spine using 2 mm collimation with bone and soft tissue algorithm. Sagittal and coronal reformatted images acquired. This CT examination was performed using dose optimization techniques as appropriate, variously including the following: *Automated exposure control *Adjustment of mA and/or kV according to patient size (this includes techniques or standardized protocols for targeted exams where dose is matched to indication/reason for exam; i.e. extremities or head) *Use of iterative reconstruction technique. DLP: 376 mGy centimeter. FINDINGS: Intervertebral disc spacer placement at C3-4 in satisfactory position. Intervertebral disc spacer placement at C4-5 demonstrated 1 mm extension beyond the posterior right midline cortex of the vertebral body of C4 and posterior left midline cortex C5 and protruding both into the ventral aspect of the central spinal canal. Craniocervical junction is intact. No acute cortical disruption. There is endplate sclerosis subchondral cyst formation and decreased intervertebral disc height and marginal osteophyte formation at C6-7 and to a lesser extent C5-6. No gross malalignment. No gross prevertebral compartment hematoma. There is decreased AP diameter of the central spinal canal at C5-6 and C6-7 levels. Calcified plaques in the carotic arteries. There is a 11 mm partially calcified soft tissue abnormality above the cricoid cartilage and extending posteriorly superiorly and to the arytenoepiglottic folds. CT/CT cervical spine wo IV con IMPRESSION: Status post intervertebral body disc spacer placement/arthrodesis C3-4 and C4-5 with 1 mm protrusion of the screws at C4-5 into the ventral aspect central spinal canal. Spondylosis resulting in central spinal canal stenosis C5-6 and C6-7. Concerning 11 mm partially calcified mass in the posterior supraglottic/arytenoepiglottic fold infiltrate in the superior cricoid cartilage. [employer] message delivered and received to the physician assistant professor of music Walker Khan on July 05, 2024 at 10:13 AM. Fleischner guidelines were followed. Electronically signed by: Soham Woodall MD 07/05/2024 10:16 AM [facility]
--- OUTSIDE RECORDS SUMMARY | 2024-07-05 09:58 | XMS_ITS | Encounter Summary ---
Author Organization [facility] Address [address] [place] [address] Care Team Providers Care Button Facing Machine Operator Name Role Phone Bravo Edwards MD, PHD Unavailable Unava Kyle King MD Primary Care Provider [phone] Encounter Details Date Type Department Care Team Description 06/12/2023 Pt. Non Urgent Medical Question Adult Medicine [address] [phone] Kyle Chavez MD [address] [place] [address] [phone] Social History Tobacco Use Types Packs/Day Years [...] * Telephone Encounter - Tamie Polanco - 06/12/2023 4:10 PM ESTFrom: Perla Dixon To: Jose Chavez Sent: 06/12/2023 4:02 PM EST Subject: Appointment I did a COVID test and it was negative. So I thought I would go in today but I forgot we cancelled it. No wonder my ride didn't come! I'm sorry I have been under so much stress that I get mixed up sometimes. It's been a really hard time for me lately. So now that I know I don't have COVID I will take the first appointment you have saige dietrich and please excuse all these messages I was having a food delivery at the same time. Thank you very much! Perla Dixon documented in this encounter Plan of Treatment Not on file documented as of this encounter Visit Diagnoses Not on filedocumented in this encounter Care Teams Button Facing Machine Operator Relationship Specialty Start Date End Date Kyle Chavez MD [address] [place] [address] PCP - General Internal Medicine 11/25/22 Bravo Edwards MD, PHD Specialist Neurosurgery 06/10/21 documented as of this encounter
--- OUTSIDE RECORDS SUMMARY | 2024-07-05 09:58 | XMS_ITS | Encounter Summary ---
Author Organization [facility] Address [address] [place] [address] Care Team Providers Care Dike Supervisor Name Role Phone Kyle Chavez MD Primary Care Provider [phone] Bravo Edwards MD, PHD Unavailable [facility], Pcp Primary [facility] Kyle Chavez MD Primary Care Provider [phone] Reason for Visit * Reason Onset Date Comments Prior Authorization 05/04/2021 Encounter Details Date Type Department Care Team Description 05/04/2021 Telephone Adult Medicine [address] [phone] Kyle Chavez MD [address] [place] [address] [phone] Prior Authorization Social History Tobacco Use Types [...] done and approved from 05/03/2021-05/03/2022. I called [facility] and this went through patients [...] What Pharmacy did the fax come from: [facility] fax #: [phone] [employer] Party Information from fax: What Prescription Plan does the patient have? BIN/PCN if applicable: Cardholder ID: Person Code: Relationship Code: Help desk phone: documented in this encounter Plan of Treatment Not on file documented as of this encounter Visit Diagnoses Not on filedocumented in this encounter Care Teams Dike Supervisor Relationship Specialty Start Date End Date Kyle Chavez MD [address] [place] [address] PCP - General Internal Medicine 11/11/19 11/21/22 [facility], Pcp [address] [place] [address] PCP - General Internal Medicine 11/22/22 11/24/22 Kyle Chavez MD [address] [place] [address] PCP - General Internal Medicine 11/25/22 Bravo Edwards MD, PHD [address] [place] [address] Specialist Neurosurgery 06/10/21 documented as of this encounter
--- OUTSIDE RECORDS SUMMARY | 2024-07-05 09:58 | XMS_ITS | Encounter Summary ---
Author Organization [facility] Address [address] [place] [address] Care Team Providers Care Trommel Tender Name Role Phone Kyle Chavez MD Primary Care Provider [phone] Bravo Edwards MD, PHD Unavailable [facility], Pcp Primary Care Provider [facility] Kyle Chavez MD Primary Care Provider [phone] Encounter Details Date Type Department Care Team Description 01/07/2021 Pt. Non Urgent Medic al Question Adult Medicine [address] [address] Mini Breen PA Social History Tobacco Use [...] have Coronavirus / COVID-19? No / Unsure 01/08/2021 1:57 PM EDT documented as of this encounter Miscellaneous Notes * Telephone Encounter - Rosalie Lyles M.A. - 01/07/2021 9:18 AM EDTFrom: Perla Dixon To: Jose Kelly Sent: 01/07/2021 8:25 AM EDT Subject: UTI Hi Mini this is Perla I believe I have the beginning of yet another UTI. I'm coming in at 11:00 to do some blood work for you can you put an order in so I can give a urine sample? I would be very grateful thank you! documented in this encounter Plan of Treatment Not on file documented as of this encounter Visit Diagnoses Not on filedocumented in this encounter Care Teams Trommel Tender Relationship Specialty Start Date End Date Kyle Chavez MD [address] [place] [address] PCP - General Internal Medicine 11/11/19 11/21/22 [facility], Pcp [address] [place] [address] PCP - General Internal Medicine 11/22/22 11/24/22 Kyle Chavez MD [address] [place] [address] PCP - General Internal Medicine 11/25/22 Bravo Edwards MD, PHD [address] [place] [address] Specialist Neurosurgery 06/10/21 documented as of this encounter
--- OUTSIDE RECORDS SUMMARY | 2024-07-05 09:58 | XMS_ITS | Encounter Summary ---
Author Organization [facility] Address [address] [place] [address] Care Team Providers Care Instrument Assembly Supervisor Name Role Phone Bravo Edwards MD, PHD Unavailable Unava ilable Kyle Chavez MD Primary Care Provider [phone] Encounter Details Date Type Department Care Team Description 05/03/2023 Pt. Non Urgent Medical Question Adult Medicine [address] [phone] Kyle Chavez MD [address] [place] [address] [phone] Social History Tobacco Use Types Packs/Day Years [...] on filedocumented in this encounter Care Teams Instrument Assembly Supervisor Relationship Specialty Start Date End Date Kyle Chavez MD [address] [place] [address] [phone] PCP - General Internal Medicine 11/25/22 Bravo Edwards MD, PHD Specialist Neurosurgery 06/10/21 documented as of this encounter
--- OUTSIDE RECORDS SUMMARY | 2024-07-05 09:58 | XMS_ITS | Encounter Summary ---
Author Organization [facility] Address [address] [place] [address] Care Team Providers Care Public Opinion Survey Taker Name Role Phone Bravo Edwards MD, PHD Unavailable Unava Kyle King MD Primary Care Provider [phone] Encounter Details Date Type Department Care Team Description 06/06/2023 Pt. Non Urgent Medical Question Adult Medicine [address] [address] Kyle Chavez MD [address] [place] [address] [phone] Social History Tobacco Use Types Packs/Day Years [...] Collin - 06/06/2023 2:17 PM ESTFrom: Perla BellZack To: Jose Chavez Sent: 06/06/2023 2:09 PM EST Subject: Appointment The hospital is packed. My brother -in-law went in today for a hip replacement and my sister could not believe how many people were in the ER and urgent care on [facility] has been having a 5-hour wait. So I would like to see a doctor please. documented in this encounter Plan of Treatment Not on file documented as of this encounter Visit Diagnoses Not on filedocumented in this encounter Care Teams Public Opinion Survey Taker Relationship Specialty Start Date End Date Kyle Chavez MD [address] [place] [address] PCP - General Internal Medicine 11/25/22 Bravo Edwards MD, PHD Specialist Neurosurgery 06/10/21 documented as of this encounter
--- OUTSIDE RECORDS SUMMARY | 2024-07-05 09:58 | XMS_ITS | Encounter Summary ---
Author Organization [facility] Address [address] [place] [address] Care Team Providers Care Cupola Melting Supervisor Name Role Phone Bravo Edwards MD, PHD Unavailable Unava Kyle King MD Primary Care Provider [phone] Encounter Details Date Type Department Care Team Description 06/19/2023 Pt. Non Urgent Medical Question Adult Medicine [address] [phone] Kyle Chavez MD [address] [place] [address] [phone] Social History Tobacco Use Types Packs/Day Years [...] on filedocumented in this encounter Care Teams Cupola Melting Supervisor Relationship Specialty Start Date End Date Kyle Chavez MD [address] [place] [address] PCP - General Internal Medicine 11/25/22 Bravo Edwards MD, PHD Specialist Neurosurgery 06/10/21 documented as of this encounter
--- OUTSIDE RECORDS SUMMARY | 2024-07-05 09:58 | XMS_ITS | Encounter Summary ---
Author Organization [facility] Address [address] [place] [address] Care Team Providers Care Tenant Relations Coordinator Name Role Phone Kyle Chavez MD Primary Care Provider Bravo Edwards MD, PHD Unavailable [facility], Pcp Primary Care Provider [facility] Kyle Chavez MD Primary Care Provider [phone] Encounter Details Date Type Department Care Team Description 04/09/2021 Pt. Non Urgent Medic al Question Adult Medicine [address] [address] Mini Breen PA Social History Tobacco Use [...] on filedocumented in this encounter Care Teams Tenant Relations Coordinator Relationship Specialty Start Date End Date Kyle Chavez MD [address] [place] [address] PCP - General Internal Medicine 11/11/19 11/21/22 [facility], Pcp [address] [place] [address] PCP - General Internal Medicine 11/22/22 11/24/22 Kyle Chavez MD [address] [place] [address] PCP - General Internal Medicine 11/25/22 Bravo Edwards MD, PHD [address] [place] [address] Specialist Neurosurgery 06/10/21 documented as of this encounter
--- OUTSIDE RECORDS SUMMARY | 2024-07-05 09:58 | XMS_ITS | Patient Health Record ---
Author Organization [facility] Address [address] [facility] [place] [address] Care Team Providers Care Protocol Manager Name Role Phone Cheko Chavez MD Primary Care Provider Julienne Cade Unavailable [phone] Allergies Allergen (clinical drug ingredient) Drug/Non Drug [...] Problem Acquired hammer toe of right foot (088406730668 9105) Other hammer toe(s) (acquired), right foot (M20.41) Active confirmed Problem Acquired hammer toe of left foot (388129295323 9103) Other hammer toe(s) (acquired), left foot (M20.42) Active confirmed Problem [id number] Hammer toe of le ft foot (M20.42) Active confirmed Problem 88398051 Type 2 diabetes mellitus with polyneuropathy (E11.42) Active confirmed Vital Signs Blood pressure diastolic 70 mm Hg 05/29/2024 Height 5ft3in in 05/29/2024 Blood pressure systolic 110 mm Hg 05/29/2024 Weight 160 lbs 05/29/2024 BMI 28.34 kg/m2 05/29/2024 Encounters Encounter Location Date Provider Diagnosis [facility] [place] [address] [place] [address] 08/18/2023 Julienne Pop Tinea unguium B35.1 and Type 2 diabetes mellitus with polyneuropathy E11.[address] [address] 11/21/2023 Juliennefredy Pop Tinea unguium B35.1 and Type 2 diabetes mellitus with polyneuropathy E11.[address] [address] 03/06/2024 Julienne Pop Type 2 diabetes mellitus with polyneuropathy E11.42 ; Other hammer toe(s) (acquired), right foot M20.41 ; Tinea unguium B35.1 and Other hammer toe(s) (acquired), left foot M20.[address] [address] 05/29/2024 Julienne Pop Type 2 diabetes mellitus with polyneuropathy E11.42 and Tinea unguium B35.[address] [address] 07/25/2023 Julienne Pop [address] [address] 08/18/2023 Julienne Pop Assessments Encounter Date Diagnosis [...] Provider Name:Julienne rock, 08/21/2024 11:00:00 AM, [address] [place], [address], Insurance Providers Payer Name Payer Address Payer Phone Subscriber Number Group Number Insured Name Patient Relationship to Insured Coverage Start Date Coverage End Date [facility] [employer] Claims [address] [place] [id number] Perla Pelaez Self - patient is the [...]
--- OUTSIDE RECORDS SUMMARY | 2024-07-05 09:58 | XMS_ITS | Encounter Summary ---
Author Organization [facility] Address [address] [place] [address] Care Team Providers Care Preschool Lead Teacher Name Role Phone Kyle Chavez MD Primary Care Provider [phone] Bravo Edwards MD, PHD Unavailable [facility] Pcp Primary Care Provider Unavailabl Kyle Chavez MD Primary Care Provider [phone] Encounter Details Date Type Department Care Team Description 04/15/2021 Transfer Records Medical Records [address] [place] [address] [facility] Social History Tobacco Use Types Packs/Day Years [...] on filedocumented in this encounter Care Teams Preschool Lead Teacher Relationship Specialty Start Date End Date Kyle Chavez MD [address] [place] [address] PCP - General Internal Medicine 11/11/19 11/21/22 [facility], Pcp [address] [place] [address] PCP - General Internal Medicine 11/22/22 11/24/22 Kyle Chavez MD [address] [place] [address] PCP - General Internal Medicine 11/25/22 Bravo Edwards MD, PHD [address] [place] [address] Specialist Neurosurgery 06/10/21 documented as of this encounter
--- OUTSIDE RECORDS SUMMARY | 2024-07-05 09:58 | XMS_ITS | Encounter Summary ---
Author Organization [facility] Address [address] [place] [address] Care Team Providers Care Compliance Field Technician Name Role Phone Kyle Chavez MD Primary Care Provider [phone] Bravo Edwards MD, PHD [facility], Pcp Primary Care Provider [facility] Kyle Chavez MD Primary Care Provider [phone] Reason for Referral * Non FARHANA (Routine) - Authorized/Booked Specialty Diagnoses / Procedures Referred By Contac t Referred To Contact Endocrinology Procedures REFERRAL TO ENDOCRINOLOGY Mini Breen PA [address] [place] [address] [facility]/[address] [address] Referral ID Status Reason Start Date Expiration Date V isits Requested Visits Authorized [id number] Authorized/B ooked 03/31/2021 03/31/2022 1 1 Reason for Visit * Reason Onset Date Comments Advice 03/31/2021 last appt 11/2020 Medication 03/31/2021 CGM Encounter Details Date Type Department Care Team Description 03/31/2021 Pt. Non Urgent Medical Question Adult Medicine [address] [phone] Mini Breen PA Type 2 diabetes mellitus, uncontrolled, with neuropathy (HCC) (Primary Dx) Social History Tobacco Use Types [...] Telephone Encounter - Manasa Longo M.A. - 03/31/2021 1:46 PM ESTFrom: Perla Dixon To: Jose Kelly Sent: 03/31/2021 1:44 PM EST Subject: Appointment/ low sugar Mini I'm sorry about all these texts today. Number one when do I have an appointment with you again? And number two my sugar has been dropping so low that I start shaking I feel like passing out and I don't feel good when that happens. I was wondering if I could get a dexcom and keep close track of it for a couple weeks to see why my sugar drops like that. Sometimes it happens a couple times a day sometimes three times a day. And I do eat four to five small meals a day. And when I pick my finger to do the blood test it's really hurting me now. I really would like to keep a close eye on it. Jeanine when I get that way even after I eat I'm still really shaky. I finally go see the ms/neurosurgeon on the . I am scared and nervous all at once. If it's not M s it has to be nerve damage correct? Can you please get back to me because I would come in and get a dexcom jeanine I really hate picking my fingers it hurts. Just wondering what you think. Please contact me at [phone]. Thank you so much for your time Mini! documented in this encounter Plan of Treatment Not on file documented as of this encounter Visit Diagnoses Diagnosis Type 2 diabetes mellitus, uncontrolled, with neuropathy- Primary Type II or unspecified type diabetes mellitus with neurological manifestations, uncontrolled documented in this encounter Care Teams Compliance Field Technician Relationship Specialty Start Date End Date Kyle Chavez MD [address] [place] [address] PCP - General Internal Medicine 11/11/19 11/21/22 [facility], Pcp [address] [place] [address] PCP - General Internal Medicine 11/22/22 11/24/22 Kyle Chavez MD [address] [place] [address] PCP - General Internal Medicine 11/25/22 Bravo Edwards MD, PHD [address] [place] [address] Specialist Neurosurgery 06/10/21 documented as of this encounter
--- OUTSIDE RECORDS SUMMARY | 2024-07-05 09:58 | XMS_ITS | Encounter Summary ---
Author Organization [facility] Address [address] [place] [address] Care Team Providers Care Bladder Tier Name Role Phone Bravo Edwards MD, PHD Unavailable Unava ilable Kyle Chavez MD Primary Care Provider [phone] Encounter Details Date Type Department Care Team Description 07/26/2023 [facility] Medical Records [address] [place] [address] Abstract, Provider Social History Tobacco Use Types [...] on filedocumented in this encounter Care Teams Bladder Tier Relationship Specialty Start Date End Date Kyle Chavez MD [address] [place] [address] [phone] PCP - General Internal Medicine 11/25/22 Bravo Edwards MD, PHD Specialist Neurosurgery 06/10/21 documented as of this encounter
--- OUTSIDE RECORDS SUMMARY | 2024-07-05 09:58 | XMS_ITS | Encounter Summary ---
Author Organization [facility] Address [address] [place] [address] Care Team Providers Care Home Economist Name Role Phone Bravo Edwards MD, PHD Unavailable Unava Kyle King MD Primary Care Provider [phone] Encounter Details Date Type Department Care Team Description 07/21/2023 Pt. Non Urgent Medical Question Adult Medicine [address] [address] Kyle Chavez MD [address] [place] [address] [phone] Social History Tobacco Use Types Packs/Day Years [...] reschedule that please? My phone number is [phone]. Sorry about the mix-up it wasn't on my calendar. Thank you for your time! documented in this encounter Plan of Treatment Not on file documented as of this encounter Visit Diagnoses Not on filedocumented in this encounter Care Teams Home Economist Relationship Specialty Start Date End Date Kyle Chavez MD [address] [place] [address] PCP - General Internal Medicine 11/25/22 Bravo Edwards MD, PHD Specialist Neurosurgery 06/10/21 documented as of this encounter
--- OUTSIDE RECORDS SUMMARY | 2024-07-05 09:58 | XMS_ITS | Encounter Summary ---
Author Organization [facility] Address [address] [place] [address] Care Team Providers Care Supervisor Cap And Hat Production Name Role Phone Bravo Edwards MD, PHD Unavailable Unava Kyle King MD Primary Care Provider [phone] Encounter Details Date Type Department Care Team Description 01/17/2023 Pt. 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
--- OUTSIDE RECORDS SUMMARY | 2024-07-05 09:58 | XMS_ITS | Encounter Summary ---
Author Organization [facility] Address [address] [place] [address] Care Team Providers Care Campus Recruiting Coordinator Name Role Phone Bravo Edwards MD, PHD Unavailable Unava Kyle King MD Primary Care Provider [phone] Encounter Details Date Type Department Care Team Description 06/01/2023 Pt. Non Urgent Medical Question Adult Medicine [address] [phone] Kyle Chavez MD [address] [place] [address] Social History Tobacco Use Types Packs/Day Years [...] * Telephone Encounter - Chito Dang - 06/01/2023 9:21 AM ESTFrom: Perla Dixon To: Jose Chavez Sent: 06/01/2023 7:01 AM EST Subject: Appointment I'm sorry I have to cancel my appointment I was just informed transportation cannot find me a ride after all. I will give it another week and if it's not any better I will call or leave a message andcome in. Thank you for all your help. So sorry I have to cancel I can't believe they can't find me a ride! documented in this encounter Plan of Treatment Not on file documented as of this encounter Visit Diagnoses Not on filedocumented in this encounter Care Teams Campus Recruiting Coordinator Relationship Specialty Start Date End Date Kyle Chavez MD [address] [place] [address] PCP - General Internal Medicine 11/25/22 Bravo Edwards MD, PHD Specialist Neurosurgery 06/10/21 documented as of this encounter
--- OUTSIDE RECORDS SUMMARY | 2024-07-05 09:58 | XMS_ITS | Encounter Summary ---
Author Organization [facility] Address [address] [place] [address] Care Team Providers Care Air Cargo Specialist Name Role Phone Bravo Edwards MD, PHD Unavailable Unava Kyle King MD Primary Care Provider [phone] Encounter Details Date Type Department Care Team Description 01/16/2023 Pt. 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 Iwas let go enrique I missed two appointments one when I was up and leaves with my broken leg and the second one enrique I'm homeless now. And I lost my phone. Can someone please call me at [phone] Jaunyou documented in this encounter Plan of Treatment Not on file documented as of this encounter Visit Diagnoses Not on filedocumented in this encounter Care Teams Air Cargo Specialist Relationship Specialty Start Date End Date Kyle Chavez MD [address] [place] [address] PCP - General Internal Medicine 11/25/22 Bravo Edwards MD, PHD Specialist Neurosurgery 06/10/21 documented as of this encounter
--- OUTSIDE RECORDS SUMMARY | 2024-07-05 09:58 | XMS_ITS | Encounter Summary ---
Author Organization [facility] Address [address] [place] [address] Care Team Providers Care Head Of It Name Role Phone Bravo Edwards MD, PHD Unavailable Unava Kyle King MD Primary Care Provider [phone] Encounter Details Date Type Department Care Team Description 07/03/2023 Pt. Non Urgent Medical Question Adult Medicine [address] [phone] Kyle Chavez MD [address] [place] [address] Social History Tobacco Use Types Packs/Day Years [...] Telephone Encounter - Manasa Longo M.A. - 07/03/2023 9:17 AM ESTFrom: Perla Dixon To: Jose Chavez Sent: 07/03/2023 9:13 AM EST Subject: Lyrica Hi Dr Chavez! I wanted to let you know I finally have my own place! No more sleeping on people's couches! Now that I have my own place can we go back to getting three refills for the Lyrica? The reasonI'm asking is because that week I'm due I'm also due for 4 other prescriptions so I'm I am going tothe pharmacy four times in one week! And thi s way I can get 3 months of the Lyrica and I don't have to worry about finding a ride four times in one week. I would be so grateful for that! I just wanted to tell you the good news and ask you that question My next appointment is August 29 and I will seeyou then. Thank you for all you do for me! Perla documented in this encounter Plan of Treatment Not on file documented as of this encounter Visit Diagnoses Not on filedocumented in this encounter Care Teams Head Of It Relationship Specialty Start Date End Date Kyle Chavez MD [address] [place] [address] PCP - General Internal Medicine 11/25/22 Bravo Edwards MD, PHD Specialist Neurosurgery 06/10/21 documented as of this encounter
--- OUTSIDE RECORDS SUMMARY | 2024-07-05 09:59 | XMS_ITS | Encounter Summary ---
Author Organization [facility] Address [address] [place] [address] Care Team Providers Care Guitar Repairer Name Role Phone Kyle Chavez MD Primary Care Provider [phone] Bravo Edwards MD, PHD Unavailable [facility], Pcp Primary Care Provider [facility] Kyle Chavez MD Primary Care Provider [phone] Encounter Details Date Type Department Care Team Description 11/01/2022 Payroll Machine Operator Report Medical Records [address] [place] [address] Juan David Domínguez Social History Tobacco Use Types Packs/Day Years [...] on filedocumented in this encounter Care Teams Guitar Repairer Relationship Specialty Start Date End Date Kyle Chavez MD [address] [place] [address] [id number] PCP - General Internal Medicine 11/11/19 11/21/22 Counts Include [facility], Pcp [address] [place] [address] PCP - General Internal Medicine 11/22/22 11/24/22 Kyle Chavez MD [address] [place] [address] PCP - General Internal Medicine 11/25/22 Bravo Edwards MD, PHD [address] [place] [address] Specialist Neurosurgery 06/10/21 documented as of this encounter
--- OUTSIDE RECORDS SUMMARY | 2024-07-05 09:59 | XMS_ITS | Encounter Summary ---
Author Organization [facility] Address [address] [place] [address] Care Team Providers Care Communications Project Manager Name Role Phone Lucia Duff MD Primary Care Provider Amy Maldonado MD Primary Care Provider Unavail able Jean-Paul Carranza MD Primary Care Provider Unavail able Kyle Chavez MD Primary Care Provider [phone] Bravo Edwards MD, PHD [facility]available [facility], [facility] Primary Care Provider Unavailabl Kyle Washington MD Primary Care Provider [phone] Encounter Details Date Type Department Care Team Description 12/14/2015 Transfer Records Medical Records [address] [place] [id number] Abstract, Provider Social History Tobacco Use Types [...] on filedocumented in this encounter Care Teams Communications Project Manager Relationship Specialty Start Date End Date Lucia Duff MD PCP - General Internal Medicine 02/12/15 01/31/18 Amy Hernandez MD PCP - General Internal Medicine 02/01/18 06/03/18 Jean-Paul Carranza MD PCP - General Internal Medicine 06/04/18 11/10/19 Kyle Chavez MD [address] [place] [address] PCP - General Internal Medicine 11/11/19 11/21/22 [facility] Pcp [address] [place], [place] [phone] PCP - General Internal Medicine 11/22/22 11/24/22 Kyle Chavez MD [address] [place] [address] PCP - General Internal Medicine 11/25/22 Bravo Edwards MD, PHD [address] [place] [address] Specialist Neurosurgery 06/10/21 documented as of this encounter
--- OUTSIDE RECORDS SUMMARY | 2024-07-05 09:59 | XMS_ITS | Encounter Summary ---
Author Organization [facility] Address [address] [place] [address] Care Team Providers Care Service Secretary Name Role Phone Bravo Edwards MD, PHD Unavailable [facility] Kyle King MD Primary Care Provider [phone] Reason for Visit * Reason Onset Date Comments Form 01/28/2023 Housing Encounter Details Date Type Department Care Team Description 01/28/2023 Pt. Non Urgent Medical Question Adult Medicine [address] [id number] Kyle Chavez MD [address] [place] [address] Social History Tobacco Use Types Packs/Day Years [...] filedocumented in this encounter Care Teams Service Secretary Relationship Specialty Start Date End Date Kyle Chavez MD [address] [place] [address] PCP - General Internal Medicine 11/25/22 Bravo Edwards MD, PHD Specialist Neurosurgery 06/10/21 documented as of this encounter
--- OUTSIDE RECORDS SUMMARY | 2024-07-05 09:59 | XMS_ITS | Encounter Summary ---
Author Organization [facility] Address [address] [place] [address] Care Team Providers Care Cloth Winder Name Role Phone Kyle Chavez MD Primary Care Provider [phone] Bravo Edwards MD, PHD Unavailable [facility], Pcp Primary Care Provider Unavailabl Kyle Chavez MD Primary Care Provider [phone] Encounter Details Date Type Department Care Team Description 11/15/2022 Orders Only Medical Records [address] [place] [address] Abstract, Provider Social History Tobacco Use Types [...] Name Priority Date/Time Associated Diagnosis Comments OUTSIDE PLAIN FILM Routine 11/08/2022 documented in this encounter Results * OUTSIDE PLAIN FILM (11/08/2022) Provider Abstract RADIOLOGY documented in this encounter Visit Diagnoses Not on filedocumented in this encounter Care Teams Cloth Winder Relationship Specialty Start Date End Date Kyle Chavez MD [address] [place] [address] PCP - General Internal Medicine 11/11/19 11/21/22 [facility], Pcp [address] [place] [address] PCP - General Internal Medicine 11/22/22 11/24/22 Kyle Chavez MD [address] [place] [address] PCP - General Internal Medicine 11/25/22 Bravo Edwards MD, PHD [address] [place] [address] Specialist Neurosurgery 06/10/21 documented as of this encounter
--- OUTSIDE RECORDS SUMMARY | 2024-07-05 09:59 | XMS_ITS | Encounter Summary ---
Author Organization [facility] Address [address] [place] [address] Care Team Providers Care Cutter Helper Name Role Phone Jean-Paul Carranza MD Primary Care Provider Unavail Kyle Camejo MD Primary Care Provider Bravo Edwards MD, PHD Unavailable [facility], Pcp Primary Care Provider UnavailKyle Putnam MD Primary Care Provider [phone] Reason for Visit * Reason Onset Date Comments Provider Call Back 07/18/2018 Encounter Details Date Type Department Care Team Description 07/18/2018 [place] [facility] [address] [address] Jean-Paul Carranza MD Provider Call Back Social [...] filedocumented in this encounter Care Teams Cutter Helper Relationship Specialty Start Date End Date Jean-Paul Carranza MD PCP - General Internal Medicine 06/04/18 11/10/19 Kyle Chavez MD [address] [place] [address] PCP - General Internal Medicine 11/11/19 11/21/22 [place] [id number] PCP - General Internal Medicine 11/22/22 11/24/22 Kyle Chavez MD [address] [place] [address] PCP - General Internal Medicine 11/25/22 Bravo Edwards MD, PHD [address] [place], [place] [phone] Specialist Neurosurgery 06/10/21 documented as of this encounter
--- OUTSIDE RECORDS SUMMARY | 2024-07-05 09:59 | XMS_ITS | Encounter Summary ---
Author Organization [facility] Address [address] [place] [address] Care Team Providers Care Machine Icer Name Role Phone Kyle Chavez MD Primary Care Provider [phone] Bravo Edwards MD, PHD Unavailable [facility], Pcp Primary Care Provider [facility] Kyle Washington MD Primary Care Provider [phone] Reason for Visit * Reason Onset Date Comments injury 11/01/2022 Leg Pain 11/01/2022 Fall 11/01/2022 Encounter Details Date Type Department Care Team Description 11/01/2022 Pt. Non Urgent Medical Question Adult Medicine [address] [phone] Kyle Chavez MD [address] [place] [address] [phone] Social History Tobacco Use Types Packs/Day Years [...] badly Could someone please call me at [phone]. I mean when I say it hurts and a scale of 1 to 10 I'm a 15! I will anxiously be waiting for your response! Thank you very much... . Perla documented in this encounter Plan of Treatment Not on file documented as of this encounter Visit Diagnoses Not on filedocumented in this encounter Care Teams Machine Icer Relationship Specialty Start Date End Date Kyle Chavez MD [address] [place] [address] PCP - General Internal Medicine 11/11/19 11/21/22 [facility] Pcp [address] [place] [address] PCP - General Internal Medicine 11/22/22 11/24/22 Kyle Chavez MD [address] [place] [address] PCP - General Internal Medicine 11/25/22 Bravo Edwards MD, PHD [address] [place] [address] Specialist Neurosurgery 06/10/21 documented as of this encounter
--- OUTSIDE RECORDS SUMMARY | 2024-07-05 09:59 | XMS_ITS | Encounter Summary ---
Author Organization [facility] Address [address] [place] [address] Care Team Providers Care Office Nurse Practitioner Name Role Phone Lucia Duff MD Primary Care Provider Amy Maldonado MD Primary Care Provider Unavail able Jean-Paul Carranza MD Primary Care Provider Unavail able Kyle Chavez MD Primary Care Provider [phone] Bravo Edwards MD, PHD Unavailable [facility], Pcp Primary Care Provider Unavailabl e Kyle Chavez MD Primary Care Provider [phone] Reason for Visit * Reason Onset Date Comments refill request 02/22/2016 Encounter Details Date Type Department Care Team Description 02/22/2016 Refill Adult Medicine [address] [address] Lucia Duff MD refill request Social History [...] NO Patients current insurance carrier is: Payor: [facility] / Plan: [facility] INS[employer]ANCE / Product Type: OTHER documented in this encounter Plan of Treatment Not on file documented as of this encounter Visit Diagnoses Not on filedocumented in this encounter Care Teams Office Nurse Practitioner Relationship Specialty Start Date End Date Lucia Duff MD PCP - General Internal Medicine 02/12/15 01/31/18 Amy Hernandez MD PCP - General Internal Medicine 02/01/18 06/03/18 Jean-Paul Carranza MD PCP - General Internal Medicine 06/04/18 11/10/19 Kyle Chavez MD [address] [place] [address] PCP - General Internal Medicine 11/11/19 11/21/22 [place] [phone] PCP - General Internal Medicine 11/22/22 11/24/22 Kyle Chavez MD [address] [place], [place] [phone] PCP - General Internal Medicine 11/25/22 Bravo Edwards MD, PHD [address] [place], [place] [phone] Specialist Neurosurgery 06/10/21 documented as of this encounter
--- OUTSIDE RECORDS SUMMARY | 2024-07-05 09:59 | XMS_ITS | Encounter Summary ---
Author Organization [facility] Address [address] [place] [address] Care Team Providers Care Soil Checker Name Role Phone Jean-Paul Carranza MD Primary Care Provider Unavail able Kyle Chavez MD Primary Care Provider [phone] Bravo Edwards MD, PHD [facility], [facility] Primary Care Provider Unavailabl Kyle Washington MD Primary Care Provider [phone] Encounter Details Date Type Department Care Team Description 07/05/2018 Sheriff Officer Report Medical Records [address] [place] [address] Ashli Smith MD Social History Tobacco Use [...] on filedocumented in this encounter Care Teams Soil Checker Relationship Specialty Start Date End Date Jean-Paul Carranza MD PCP - General Internal Medicine 06/04/18 11/10/19 Kyle Chavez MD [address] [place] [address] PCP - General Internal Medicine 11/11/19 11/21/22 [facility] Pcp [address] [place] [address] PCP - General Internal Medicine 11/22/22 11/24/22 Kyle Chavez MD [address] [place] [address] PCP - General Internal Medicine 11/25/22 Bravo Edwards MD, PHD [address] [place] [address] Specialist Neurosurgery 06/10/21 documented as of this encounter
--- OUTSIDE RECORDS SUMMARY | 2024-07-05 09:59 | XMS_ITS | Encounter Summary ---
Author Organization [facility] Address [address] [place] [address] Care Team Providers Care Tuck Pointer Helper Name Role Phone Kyle Chavez MD Primary Care Provider [phone] Bravo Edwards MD, PHD Unavailable [facility], Pcp Primary Care [facility] Kyle Chavez MD Primary Care Provider [phone] Encounter Details Date Type Department Care Team Description 12/01/2020 Orders Only Adult Medicine [address] [address] Mini Breen PA Spinal stenosis of cervical [...] (11/21/2020) [facility] MRI Performing Organization Address [facility] Co de Phone Number [address] * MRI OF CERVICAL SPINE NO CONTRAST (11/21/2020) [facility] MRI Performing Organization Address [facility] Co de Phone Number [place] 166654 [facility] documented in this encounter Visit Diagnoses Diagnosis Spinal stenosis of cervical region Spinal stenosis in cervical region Abnormal brain MRI Nonspecific (abnormal) findings on radiological and other examination of skull and head documented in this encounter Care Teams Tuck Pointer Helper Relationship Specialty Start Date End Date Kyle Chavez MD [address] [place] [address] PCP - General Internal Medicine 11/11/19 11/21/22 [facility] Pcp [address] [place] [address] PCP - General Internal Medicine 11/22/22 11/24/22 Kyle Chavez MD [address] [place] [address] PCP - General Internal Medicine 11/25/22 Bravo Edwards MD, PHD [address] [place] [address] Specialist Neurosurgery 06/10/21 documented as of this encounter
--- OUTSIDE RECORDS SUMMARY | 2024-07-05 09:59 | XMS_ITS | Encounter Summary ---
Author Organization [facility] Address [address] [place] [address] Care Team Providers Care Hot Shot Name Role Phone Lucia Duff MD Primary Care Provider Amy Maldonado MD Primary Care Provider Unavail able Jean-Paul Carranza MD Primary Care Provider Unavail able Kyle Chavez MD Primary Care Provider [phone] Bravo Edwards MD, PHD [facility]available [facility], [facility] Primary Care Provider Unavailabl Kyle Washington MD Primary Care Provider [phone] Encounter Details Date Type Department Care Team Description 07/03/2015 Business Doc Medical Records [address] [place] [address] Abstract, Provider Social History Tobacco Use Types [...] on filedocumented in this encounter Care Teams Hot Shot Relationship Specialty Start Date End Date Lucia Duff MD PCP - General Internal Medicine 02/12/15 01/31/18 Amy Hernandez MD PCP - General Internal Medicine 02/01/18 06/03/18 Jean-Paul Carranza MD PCP - General Internal Medicine 06/04/18 11/10/19 Kyle Chavez MD [address] [place] [address] PCP - General Internal Medicine 11/11/19 11/21/22 [facility], Pcp [address] [place], [place] [phone] PCP - General Internal Medicine 11/22/22 11/24/22 Kyle Chavez MD [address] [place] [address] PCP - General Internal Medicine 11/25/22 Bravo Edwards MD, PHD [address] [place] [address] Specialist Neurosurgery 06/10/21 documented as of this encounter
--- OUTSIDE RECORDS SUMMARY | 2024-07-05 09:59 | XMS_ITS | Clinical Summary ---
Author Organization [facility] [address] [place] [address] [place] [address] [place] [address] Phone Care Team Providers Care Light Out Examiner Name Role Phone Kyle Chavez MD Primary Care Provider [phone] Allergies Active Allergy Reactions Criticality Noted Date Comments Amoxicillin-Pot Clavulanate 04/02/20 15 Vomiting, diarrhea Can take Amoxicillin or Penicillin Cefaclor 02/25/2005 Angioedema, itchy Flurazepam 05/04/2015 Itching Hydrocodone-Acetaminophen 04/02/2015 Nausea, vomiting Nitrofurantoin 06/27/2019 Nausea, vomiting Medications acetaminophen (TYLENOL) 500 mg capsule Take 2 capsules (1,000 mg total) by mouth every 6 (six) hours if needed for mild pain. 11/15/19 24 Active ammonium lactate (AMLACTIN) 12 % cream Apply topically 1 (one) time each day. Apply to both feet for dry skin and calluses 10/30/19 21 Active buprenorphine- naloxone (SUBOXONE) 8-2 mg per SL tablet Place 2 tablets under the tongue. Active estrogens, conjugated (PREMARIN VAGL) Insert into the vagina. Active FREESTYLE LANCETS MISC 1 EA by extracorporeal route 3 (three) times a day. 04/18/20 17 Active blood sugar diagnostic (FreeStyle Lite Strips) test strip 1 each by Other route 3 (three) times a day. 04/18/20 17 Active blood-glucose meter kit 1 Lancet by extracorporeal route 1 (one) time each day. 10/10/19 20 Active incontinence pad, liner, disp (Bladder Control Pads) pad 1 each by Not Applicable route 4 (four) times a day. REGULAR 07/27/19 18 Active lidocaine (LIDODERM) 5 % patch Place 1 patch on the skin 1 (one) time each day. Apply for no more than 12 hours in any 24 hour period 05/09/19 24 Active naproxen (NAPROSYN) 500 mg tablet Take 1 tablet (500 mg total) by mouth 2 (two) times a day with meals. 01/31/20 23 Active nystatin (MYCOSTATIN) cream Apply topically 2 (two) times a day. 05/17/19 24 Active polyethylene glycol (MIRALAX) 17 gram packet Take 17 g by mouth 1 (one) time each day. MIXED WITH WATER OR JUICE 1 TO 2 TIMES DAILY NEEDED FOR CONSTIPATION 05/12/19 21 Active pregabalin (LYRICA) 150 mg capsule Take 1 capsule (150 mg total) by mouth 3 (three) times a day. 09/27/19 24 Active traZODone (DESYREL) 100 mg tablet TAKE ONE TABLET BY MOUTH DAILY AT 5 PM EVERY EVENING 90 tablet 1 05/16/19 25 Active venlafaxine XR (EFFEXOR-XR) 150 mg 24 hr capsule Take 2 capsules (300 mg total) by mouth 1 (one) time each day in the morning. 180 capsule 1 05/16/19 25 Active famotidine (PEPCID) 20 mg tablet Take 1 tablet (20 mg total) by mouth 1 (one) time each day in the morning. 90 tablet 1 05/16/19 25 Active glycopyrrolate (ROBINUL) 2 mg tablet TAKE ONE TABLET BY MOUTH THREE TIMES DAILY AT 9AM, 1PM AND 5PM 270 tablet 1 06/05/19 25 Active SUMAtriptan (IMITREX) 50 mg tablet Take 1 tablet (50 mg total) by mouth 1 (one) time if needed for migraine. MAY REPEAT DOSE 1 TIME AFTER 2 HOURS, NEEDED. MAX 2 IN 24 HOURS 9 tablet 06/19/19 25 Active diclofenac (VOLTAREN) 1 % topical gel Apply 1 g topically 2 (two) times a day. 100 g 06/19/19 25 Active diclofenac (VOLTAREN) 1 % topical gel Apply 1 g topically 2 (two) times a day. 02/22/20 23 025 Discontinu ed(Reorder ) SUMAtriptan (IMITREX) 50 mg tablet Take 1 tablet (50 mg total) by mouth 1 (one) time if needed for migraine. MAY REPEAT DOSE 1 TIME AFTER 2 HOURS, NEEDED. MAX 2 IN 24 HOURS 12/15/19 22 025 Discontinu ed(Reorder ) doxycycline (VIBRAMYCIN) 100 mg capsule Take 1 capsule (100 mg total) by mouth 2 (two) times a day for 10 days. Take with at least 8 ounces (large glass) of water, do not lie down for 30 minutes after. Administer 2 hours before or after multivitamins, antacids, or other products containing polyvalent cations (i.e., calcium, iron, magnesium, selenium, zinc). 20 each 06/19/19 25 025 clotrimazole (LOTRIMIN) 1 % cream Apply topically 2 (two) times a day for 14 days. 15 g 06/19/19 25 025 acyclovir (ZOVIRAX) 400 mg tablet Take 1 tablet (400 mg total) by mouth 3 (three) times a day for 5 days. 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 Chronic back pain 02/25/2005 Overview (02/07/2024): S/p 2 lumbar fusion, 2 discectomy Resolved Problems Problem Noted Date Diagnosed Date Resolved Date History of heroin abuse 04/02/201512/2023 Overview (02/07/2024): Now on suboxone Encounters Date Type Department Care Team Description 07/04/2024 Telephone Adult [address] [phone] Kyle Chavez MD Weight Loss; Stress; Alopecia 07/04/[address] [address] Kyle Chavez MD Medication Problem 06/19/2024 1:30 PM EST Office Visit Adult [address] [phone] Julienne Henry, ROXY Cellulitis, umbilical (Primary Dx); Right acute serous otitis media, recurrence not specified 06/18/2024 Telephone Adult [address] [phone] Kyle Chavez MD video call request 06/17/2024 Telephone Adult [address] [phone] Kyle Chavez MD 05/20/2024 Telephone Adult [address] [phone] Abi Blount RN Fitting for DME 05/16/2024 Telephone Adult Medicine [address] [address] Kyle Chavez MD 05/14/2024 Telephone Adult Medicine [address] [phone] Kyle Chavez MD Fitting for DME (Rollator walker) from Last 3 Months Immunizations Name Administration Dates Next Due Influenza Quadravalent, MDCK , 0.5ml, preservative free (Flucelvax) 6mo and older 02/27/2023 Influenza trivalent, with pr eservative (Fluzone; Afluria) 6mo and older 04/26/2020 Influenza, Unspecified 04/26/2020 Meningococcal Polysaccharide 11/16/2000 Pneumococcal conjugate 20 va lent (Prevnar 20, PCV 20) 2mo and older 11/24/2021 Medical History Medical History Date Comments History of heroin abuse ([facility]) 04/02/2015 Now on suboxone Social History Tobacco Use Types Packs/Day Years Used Date Smoking Tobacco: Never Assessed Housing Instability Answer Date Recorde d Are you worried that in the next 2 months you may not have stable housing? No 06/18/2024 Food Access & Nutrition Answer Date Rec orded Do you have access to a vari ety of food including fruits and vegetables? Yes 06/18/2024 Access to Healthcare Answer Date Record ed Within the last 3 months, ho w many times did you visit the emergency department for your medical care? 0 06/18/2024 Health Literacy Answer Date Recorded How often do you need to hav e someone help you when you read instructions, pamphlets, or other written material from your doctor or pharmacy? Never 06/18/2024 Caregiver: How often do you need to have someone help you when you read instructions, pamphlets, or other written material from your doctor or pharmacy? Not on file 06/18/2024 Financial Risk Answer Date Recorded How hard is it for you to pa y for the very basics like food, housing, medical care, and air conditioning / heating? Somewhat hard 06/18/2024 Transportation Answer Date Recorded Has the lack of transportati on kept you from meetings, work, or from getting things needed for daily living? No 06/18/2024 Has the lack of transportati on kept you from medical appointments or from getting medications? Not on file 06/18/2024 Social Isolation Answer Date Recorded How often do you feel lonely or isolated from those around you? Sometimes 06/18/2024 Food Risk Answer Date Recorded Within the past 12 months we worried whether our food would run out before we got money to buy more. Never true 06/18/2024 Within the past 12 months th e food we bought just didn't last and we didn't have money to get more. Never true 06/18/2024 Dependent Care Answer Date Recorded Do you need help finding or paying for care for your loved ones. For example, child life assistant or elderly care for an older adult? No 06/18/2024 Education Answer Date Recorded Do you think completing more education or training, like finishing a GED, going to college, or learning a trade, would be helpful for you? No 06/18/2024 Employment and Income Answer Date Recor ded During the last four weeks, have you been actively looking for work? No 06/18/2024 Living Situation Answer Date Recorded What is your living situation? 0 06/18/2024 Comments Unknown Sex and Gender Information Value Date Recorded Sex Assigned at Not on file Legal Sex Female 10:07 AM EST Gender Identity Not on file Sexual Orientation Not on file Obstetrics History Last Filed Vital Signs Vital Sign Reading Time Taken Comments Blood Pressure 112/64 06/19/2024 1:13 PM EST Pulse 94 06/19/2024 1:13 PM EST Temperature 36.1 ??C (97 ??F) 06/19/2024 1:13 PM EST Respiratory Rate 12 06/19/2024 1:13 PM EST Oxygen Saturation 94% 03/19/2024 10:02 AM EST Inhaled Oxygen Concentration - - Weight 67.6 kg (149 lb) 06/19/2024 1:13 PM EST Height 157.5 cm (5' 2 ) 06/19/2024 1:13 PM EST Body Mass Index 27.25 06/19/2024 1:13 PM EST Plan of Treatment Upcoming Encounters Date Type Department Care Team ([facility] st Contact Info) Description 07/18/2024 4:00 PM EDT Office Visit Adult Medicine [address] [place] [address] Abby Beach PA [address] [place] [address] [phone] 09/09/2024 2:30 PM EDT Office Visit Adult Medicine [address] [phone] Kyle Chavez MD [address] [place] [address] [phone] Health Maintenance Due Date Last Done Comments Breast Cancer Screening 1965 Diabetes: Annual Retina Eye Exam 1973 Hepatitis A Vaccines (1 of 2 - Risk 2-dose series) 1982 Zoster Vaccines (1 of 2) 1982 Colorectal Cancer Screening: Stool Based Tests (FOBT/FIT) 04/09/2022 HIV Screening 04/09/2022 Medicare Annual Wellness Visit 04/09/2022 Cervical Cancer Screening: Pap Smear 12/10/2022 12/11/2019, 10/09/2013 Hepatitis B Vaccines (1 of 3 - Risk 3-dose series) 2023 RSV Immunization Patients 60+ Years Old (1 - Risk 60-74 years 1-dose series) 2023 COVID-19 Vaccine ( season) 2023 11/24/2021, 04/07/2021, 09/21/2020, Additional history exists Influenza Vaccine (#1) 2023 , 04/26/2020, 04/26/2020 Diabetes: Blood Sugar Control Test (HGBA1C) 07/24/2024 01/25/2024, 01/25/2024, 09/07/2023 Diabetes: Annual GFR (Glomerular Filtration Rate) 09/06/2024 09/07/2023, 09/07/2023, 11/15/2022, Additional history exists Diabetes: Annual Foot Exam 11/20/2024 11/21/2023 Diabetes: Annual Urine Albumin-Creatinine Ratio (uACR) 01/24/2025 01/25/2024 Depression Screening 06/18/2025 06/18/2024 Social Influencers of Health Screening 06/18/2025 06/18/2024 Cholesterol Screening (Lipid Panel) 01/24/2029 01/25/2024, 01/25/2024, 09/07/2023 DTaP,Tdap,and Td Vaccines (2 - Td or Tdap) 11/25/2031 11/24/2021 Meningococcal ACWY Vaccine Aged Out 11/16/2000 N o longer eligible based on patient's age to complete this topic Hepatitis C Screening Completed 05/28/2015 Colorectal Cancer Screening: Colonoscopy Discontinued 04/06/2017 Pneumococcal Vaccine: 50+ Years Completed 11/24/2021 Pneumococcal Vaccine: Pediatrics (0 to 5 Years) [...] on patient's age to complete this topic Meningococcal B Vacine Aged Out No lo nger eligible based on patient's age to complete this topic RSV Immunization Patients Under 20 months Aged Out No longer eligible based on patient's age to complete this topic Varicella Vaccines Aged Out No longer eligible based on patient's age to complete this topic Procedures Procedure Name Priority Date/Time Associated Diagnosis Comments THYROID STIMULATING HORMONE WITH REFLEX TO FREE T4 AND FREE T3 Routine 06/19/2024 2:02 PM EST Hair thinning URINE ALBUMIN CREATININE RATIO Routine 01/25/2024 HEMOGLOBIN A1C Routine 01/25/2024 LIPID PANEL Routine 01/25/2024 DIABETES FOOT EXAM Routine 11/21/2023 ANNUAL BMP BLOOD TEST Routine 09/07/2023 COLONOSCOPY Routine 04/06/2017 HEPATITIS C SCREENING Routine 05/28/2015 PAP SMEAR Routine 10/09/2013 from Last 3 Months or Most Recently Relevant to Health Maintenance Results * Thyroid stimulating hormone with reflex to free t4 and free t3 (06/19/2024 2:02 PM EST) TSH 1.12 0.40 - 4.00 mcIU/mL LAB CHEMISTRY METHOD 06/19/2024 5:04 PM EST [facility] Blood Venous blood specimen / Unknown Venipuncture / Unknown 06/19/2024 2:02 PM EST 06/19/2024 2:02 PM EST Abby RAMSEY LAB BLOOD ORDERABLES Fi nal Result [facility] [address] [place] [address], * Urine Albumin Creatinine Ratio (01/25/2024) Pathologist [facility] Urine Albumin Creatinine Ratio abstracted Historical Provider HEALTH MAINTENANCE Final Result * Hemoglobin A1c (01/25/2024) Pathologist [facility] Hemoglobin A1C 6.3 <=6.5 % Blood Venous blood specimen / Unknown Historical Provider LAB BLOOD ORDERABLES Ally l Result * (ABNORMAL) Lipid panel (01/25/2024) Pathologist [facility] LDL/HDL Ratio 5(A) 0 - 4 Triglycerides 336(A) 0 - 150 mg/dL Cholesterol 188 0 - 200 mg/dL HDL 35(A) >=40 mg/dL LDL Cholesterol 86 0 - 100 mg/dL Blood Venous blood specimen / Unknown Historical Provider LAB BLOOD ORDERABLES Ally l Result * Diabetes Foot Exam (11/21/2023) Pathologist [facility] Diabetes: Annual Foot Exam abstracted Historical Provider HEALTH MAINTENANCE Final Result * Annual BMP Blood Test (09/07/2023) Pathologist [facility] Annual BMP Blood Test abstracted [facility] Provider HEALTH MAINTENANCE Final Result * Colonoscopy (04/06/2017) Pathologist [facility] Colonoscopy no interpretation , abstracted Anatomical Region Laterality Modality Other Historical Provider HEALTH MAINTENANCE Final Result * Hepatitis C Screening (05/28/2015) Pathologist [facility] Hepatitis C Screening abstracted [facility] Provider HEALTH MAINTENANCE Final Result * Pap Smear (10/09/2013) Pathologist [facility] Pap smear no interpretation , abstracted [facility] Provider HEALTH MAINTENANCE Final Result from Last 3 Months or Most Recently Relevant to Health Maintenance Insurance [employer] MEDICARE Member Subscriber Plan / Payer (Ef fective 2017-Present) Name:Perla Dixon Relation to Subscriber:Self Name:Perla Dixon Payer ID:[id number] Group ID:[id number] Type:Not on file Address: [address] [facility] [place] [address] Care Teams Light Out Examiner Relationship Specialty Start Date End Date Kyle Chavez MD [address] [place] [address] [place] [address] PCP - General Internal Medicine 06/18/24
--- OUTSIDE RECORDS SUMMARY | 2024-07-05 09:59 | XMS_ITS | Encounter Summary ---
Author Organization [facility] Address [address] [place] [address] Care Team Providers Care Light Rail Vehicle Operator Name Role Phone Bravo Edwards MD, PHD Unavailable Mandava Kyle King MD Primary Care Provider [phone] Encounter Details Date Type Department Care Team Description 02/27/2023 Telephone Adult Medicine [address] [address] Eduarda Paige APRN [address] [place] [phone] Social History Tobacco Use Types Packs/Day Years [...] Patient is requesting that you call [facility] on her behalf to boost her chances of getting an apartment. She does not want to go to the residential due to previous drug history. She is afraid shemight relapse. You have already provided her with 2 letters in 07/2022. She provided me with this phone number [phone] for you to call. documented in this encounter Plan of Treatment Not on file documented as of this encounter Visit Diagnoses Not on filedocumented in this encounter Care Teams Light Rail Vehicle Operator Relationship Specialty Start Date End Date Kyle Chavez MD [address] [place] [address] PCP - General Internal Medicine 11/25/22 Bravo Edwards MD, PHD Specialist Neurosurgery 06/10/21 documented as of this encounter
--- OUTSIDE RECORDS SUMMARY | 2024-07-05 09:59 | XMS_ITS | Encounter Summary ---
Author Organization [facility] Address [address] [place] [address] Care Team Providers Care Foster Care Social Worker Name Role Phone Bravo Edwards MD, PHD Unavailable Unava ilable Kyle Chavez MD Primary Care Provider [phone] Encounter Details Date Type Department Care Team Description 11/25/2022 Pt. Non Urgent Medical Question Adult Medicine [address] [phone] Kyle Chavez MD [address] [place] [address] [phone] Social History Tobacco Use Types Packs/Day Years [...] on filedocumented in this encounter Care Teams Foster Care Social Worker Relationship Specialty Start Date End Date Kyle Chavez MD [address] [place] [address] [phone] PCP - General Internal Medicine 11/25/22 Bravo Edwards MD, PHD Specialist Neurosurgery 06/10/21 documented as of this encounter
--- OUTSIDE RECORDS SUMMARY | 2024-07-05 09:59 | XMS_ITS | Encounter Summary ---
Author Organization [facility] Address [address] [place] [address] Care Team Providers Care Survey Research Teacher Name Role Phone Kyle Chavez MD Primary Care Provider [phone] Bravo Edwards MD, PHD Unavailable [facility] Primary Care Provider [facility] Kyle Chavez MD Primary Care Provider [phone] Encounter Details Date Type Department Care Team Description 10/26/2022 Pt. Non Urgent Medical Question Adult Medicine [address] [phone] Kyle Chavez MD [address] [place] [address] [phone] Social History Tobacco Use Types Packs/Day Years [...] on filedocumented in this encounter Care Teams Survey Research Teacher Relationship Specialty Start Date End Date Kyle Chavez MD [address] [place] [address] PCP - General Internal Medicine 11/11/19 11/21/22 Community, Pcp [address] [place], [place] [phone] PCP - General Internal Medicine 11/22/22 11/24/22 Kyle Chavez MD [address] [place] [address] PCP - General Internal Medicine 11/25/22 Bravo Edwards MD, PHD [address] [place] [address] Specialist Neurosurgery 06/10/21 documented as of this encounter
--- OUTSIDE RECORDS SUMMARY | 2024-07-05 09:59 | XMS_ITS | Encounter Summary ---
Author Organization [facility] Address [address] [place] [address] Care Team Providers Care Regional Loss Prevention Manager Name Role Phone Bravo Edwards MD, PHD Unavailable Unava Kyle King MD Primary Care Provider [phone] Encounter Details Date Type Department Care Team Description 01/26/2023 Pt. Non Urgent Medical Question Adult Medicine [address] [address] Kyle Chavez MD [address] [place] [phone] Social History Tobacco Use Types Packs/Day Years [...] PM EDT Subject: Podiatry I found a morphology teacher his name is Dr Johnson Lozano. He's at [address] [place] [address]. Can you please send a referral to them because then they'll take me quicker than the end of March. I would greatly appreciate it. documented in this encounter Plan of Treatment Not on file documented as of this encounter Visit Diagnoses Not on filedocumented in this encounter Care Teams Regional Loss Prevention Manager Relationship Specialty Start Date End Date Kyle Chavez MD [address] [place] [address] PCP - General Internal Medicine 11/25/22 Bravo Edwards MD, PHD Specialist Neurosurgery 06/10/21 documented as of this encounter
--- OUTSIDE RECORDS SUMMARY | 2024-07-05 09:59 | XMS_ITS ---
Author Organization [facility] Address [address] [place] [address] Care Team Providers Care Chute Feeder Name Role Phone Cheko Chavez MD Primary Care Provider Julienne Cade Unavailable [phone] Allergies Allergen (clinical drug ingredient) Drug/Non Drug [...] Problem Acquired hammer toe of right foot (7912208328732 105) Other hammer toe(s) (acquired), right foot (M20.41) Active confirmed Problem Acquired hammer toe of left foot (3077444563830 103) Other hammer toe(s) (acquired), left foot (M20.42) Active confirmed Vital Signs Height 5ft3in in 03/06/2024 Weight 161 lbs 03/06/2024 BMI 28.52 kg/m2 03/06/2024 Encounters Encounter Location Date Provider Diagnosis [facility] [address] [address] 03/06/2024 Julienne Pop Type 2 diabetes mellitus [...] Reason: Provider Name:Julienne rock, 08/21/2024 11:00:00 AM, [address] [place] [address], [phone], Procedure Notes * Category Sub-Category Detail Notes [...] as necessary. Patient chooses, no pharmaceutical tx (26947) Keratoma Treatment Parring or Cutting o f Benign Hyperkeratotic Lesion(s) 11812 ( More than 4 Lesions ) - The Benign hyperkeratotic lesions, as described above were pared, and/or cut utilizing a sterile 15 blade, tissue nippers, and/or dremel Progress Notes * SERGORehanahyDOB:1964 (58 yo F)Acc No.[id number]:03/06/2024 Progress Note Patient:?Perla Dixon Provider:?Julienne Pop DPM :1965???Age:58 Y???Sex:Female D ate:03/06/2024 Address:[address] [place] [address], [id number] Pcp:Cheko Chavez MD Subjective: * Chief Complaints: [...] 6.1 * Examination: ???Ophthalmology Referral: ?DIABETES EYE EXAM?Procedure Performed:?Yes ?Date of Exam Performed?05/01/2023 ?Findings of Diabetic Eye Exam:?no retinopathy?Neurological: ?SENSORY:?Neurological exam demonstrates, reduced light touch sensation, [...] for office visit today.?ORIENTED:?person, place, and time.?FOOT EXAM:?Lower Extremity Neurological Exam performed:?Yes ?Footwear Evaluation?Footwear Evaluation performed:?Yes?Vascular: ?DP PULSES(B):?3/4, B/L.?PT PULSES(B):?3/4, B/L.?CAPILLARY FILL TIME:?immediate, [...] as necessary. Patient chooses, no pharmaceutical tx (04631).?Keratoma Treatment:?Parring or Cutting of Benign Hyperkeratotic Lesion(s)?77043 ( More than 4 Lesions ) - The Benign hyperkeratotic lesions, as described above were pared, and/or cut utilizing a sterile 15 blade, tissue nippers, and/or dremel.? * Procedure Codes:?01611 DEBRI DE NAIL, 6 OR MORE, Modifiers: XS 96444 TRIM SKIN LESIONS, OVER 4, Modifiers: XS [...] status: Completed true * Provider:?Julienne Pop DPM Date:?09/2023 Generated for Lia sigala/Billy/Kelsi on:?07/05/2024 09:58 AM EST History and Physical Notes * [...]
--- OUTSIDE RECORDS SUMMARY | 2024-07-05 09:59 | XMS_ITS | Encounter Summary ---
Author Organization [facility] Address [address] [place] [address] Care Team Providers Care Rattle Leak And Squeak Repairer Name Role Phone Bravo Edwards MD, PHD Unavailable Unava Kyle King MD Primary Care Provider [phone] Encounter Details Date Type Department Care Team Description 12/05/2022 Pt. Non Urgent Medical Question Adult Medicine [address] [phone] Kyle Chavez MD [address] [place] [phone] Social History Tobacco Use Types Packs/Day Years [...] Telephone Encounter - Rosalie Lyles M.A. - 12/05/2022 4:23 PM EDTFrom: Perla BellZack To: Jose Chavez Sent: 12/05/2022 3:46 PM EDT Subject: Aches I've been home all day I was resting was sleeping, Carmino! Give me a few minutes I really got a call spectrum this phone is really messed up and I'll call you right away bye documented in this encounter Plan of Treatment Not on file documented as of this encounter Visit Diagnoses Not on filedocumented in this encounter Care Teams Rattle Leak And Squeak Repairer Relationship Specialty Start Date End Date Kyle Chavez MD [address] [place] [address] PCP - General Internal Medicine 11/25/22 Bravo Edwards MD, PHD Specialist Neurosurgery 06/10/21 documented as of this encounter
--- OUTSIDE RECORDS SUMMARY | 2024-07-05 10:00 | XMS_ITS | Encounter Summary ---
Author Organization [facility] Address [address] [place] [address] Care Team Providers Care Miniature Set Designer Name Role Phone Jean-Paul Carranza MD Primary Care Provider Unavail able Kyle Chavez MD Primary Care Provider [phone] Bravo Edwards MD, PHD Unavailable [facility], Pcp Primary Care Provider Unavailabl Kyle Washington MD Primary Care Provider [phone] Encounter Details Date Type Department Care Team Description 06/19/2018 Orders Only Adult Medicine [address] [id number] Jean-Paul Carranza MD Social History Tobacco Use [...] on filedocumented in this encounter Care Teams Miniature Set Designer Relationship Specialty Start Date End Date Jean-Paul Carranza MD PCP - General Internal Medicine 06/04/18 11/10/19 Kyle Chavez MD [address] [place] [address] PCP - General Internal Medicine 11/11/19 11/21/22 [facility], Pcp [address] [place] [address] PCP - General Internal Medicine 11/22/22 11/24/22 Kyle Chavez MD [address] [place] [address] PCP - General Internal Medicine 11/25/22 Bravo Edwards MD, PHD [address] [place] [address] Specialist Neurosurgery 06/10/21 documented as of this encounter
--- OUTSIDE RECORDS SUMMARY | 2024-07-05 10:00 | XMS_ITS | Clinical Summary ---
Author Organization [employer] Address [address] [place] [address] 7 [place] [address] Care Team Providers Care Pumping Plant Operator Name Role Phone Unavailable Primary Care Provider Unavailabl e Immunizations Name Administration Dates Next Due Influenza [...] 60-74 years 1-dose series) 2023 COVID-19 Vaccine (5 - 2024-25 season) 2023 11/24/2021, 04/07/2021, 09/21/2020, Additional history exists Influenza Vaccine (#1) 2023 3, 04/26/2020, 04/26/2020, Additional history exists DTaP/Tdap/Td Vaccines (2 - Td or Tdap) 11/25/2031 11/24/2021 Meningococcal Vaccine Aged Out 11/16/2000 No oly danish eligible based on patient's age to complete this topic Pneumococcal Vaccine: 50+ Years Completed 11/24/2021, 11/24/2021 Pneumococcal Vaccine: Pediatrics (0 to 5 [...] patient's age to complete this topic Insurance [facility]
--- OUTSIDE RECORDS SUMMARY | 2024-07-05 10:00 | XMS_ITS | Encounter Summary ---
Author Organization [facility] Address [address] [place] [address] Care Team Providers Care Supervisor Extruding Department Name Role Phone Kyle Chavez MD Primary Care Provider [phone] Bravo Edwards MD, PHD [facility], Pcp Primary Care Provider [facility] Kyle Chavez MD Primary Care Provider [phone] Reason for Referral * EXTERNAL (Routine) - Authorized/Booked Specialty Diagnoses / Procedures Referred By Contac t Referred To Contact Neurology Procedures REFERRAL TO NEUROLOGY Mini Breen PA [address] [place] [address] Walker López MD Referral ID Status Reason Start Date Expiration Date V isits Requested Visits Authorized [id number] Authorized/B ooked 10/19/2020 01/29/2021 1 1 Reason for Visit * Reason Onset Date Comments Mosaic Technician Feedback 10/15/2020 Neurology Encounter Details Date Type Department Care Team Description 10/15/2020 Telephone Adult Medicine [address] [address] Mini Breen PA Mosaic Technician Feedback (Neurology) Social History Tobacco Use Types [...] for the patient to be seen by [facility] for Migraines, abnormal MRI concerning MS. Their office has declined to schedule the patient due to an extensive history of no-shows and cancellations. I have pended a new order to you. Please review and sign when able. Thank you Misti Bolaños Shank Sorter documented in this encounter Plan of Treatment Not on file documented as of this encounter Visit Diagnoses Not on filedocumented in this encounter Care Teams Supervisor Extruding Department Relationship Specialty Start Date End Date Kyle Chavez MD [address] [place] [address] PCP - General Internal Medicine 11/11/19 11/21/22 [facility], Pcp [address] [place] [address] PCP - General Internal Medicine 11/22/22 11/24/22 Kyle Chavez MD [address] [place] [address] PCP - General Internal Medicine 11/25/22 Bravo Edwards MD, PHD [address] [place] [address] Specialist Neurosurgery 06/10/21 documented as of this encounter
--- OUTSIDE RECORDS SUMMARY | 2024-07-05 10:00 | XMS_ITS | Encounter Summary ---
Author Organization [facility] Address [address] [place] [address] Care Team Providers Care Tire Tester Name Role Phone Jean-Paul Carranza MD Primary Care Provider Unavail able Kyle Chavez MD Primary Care Provider [phone] Bravo Edwards MD, PHD Unavailable [facility], Pcp Primary Care Provider Unavailabl Kyle Washington MD Primary Care Provider [phone] Encounter Details Date Type Department Care Team Description 07/30/2018 Orders Only Adult Medicine [address] [phone] Jean-Paul Carranza MD Social History Tobacco Use [...] filedocumented in this encounter Care Teams Tire Tester Relationship Specialty Start Date End Date Jean-Paul Carranza MD PCP - General Internal Medicine 06/04/18 11/10/19 Kyle Chavez MD [address] [place] [address] PCP - General Internal Medicine 11/11/19 11/21/22 [facility], Pcp [address] [place] [address] PCP - General Internal Medicine 11/22/22 11/24/22 Kyle Chavez MD [address] [place] [address] PCP - General Internal Medicine 11/25/22 Bravo Edwards MD, PHD [address] [place] [address] Specialist Neurosurgery 06/10/21 documented as of this encounter
--- OUTSIDE RECORDS SUMMARY | 2024-07-05 10:00 | XMS_ITS | Encounter Summary ---
Author Organization [facility] Address [address] [place] [address] Care Team Providers Care Bow Stapler Name Role Phone Amy Hernandez MD Primary Care Provider Unavail able Jean-Paul Carranza MD Primary Care Provider Unavail able Kyle Chavez MD Primary Care Provider [phone] Bravo Edwards MD, PHD Unavailable [facility] Pcp Primary Care Provider Unavailabl Kyle Chavez MD Primary Care Provider [phone] Encounter Details Date Type Department Care Team Description 05/16/2018 School Transportation Supervisor Report Medical Records [address] [place] [address] Srinivasa Gaytan MD Social History Tobacco Use Types Packs/Day [...] on filedocumented in this encounter Care Teams Bow Stapler Relationship Specialty Start Date End Date Amy Hernandez MD PCP - General Internal Medicine 02/01/18 06/03/18 Jean-Paul Carranza MD PCP - General Internal Medicine 06/04/18 11/10/19 Kyle Chavez MD [address] [place] [address] PCP - General Internal Medicine 11/11/19 11/21/22 [facility], Pcp [address] [place] [address] PCP - General Internal Medicine 11/22/22 11/24/22 Kyle Chavez MD [address] [place] [address] PCP - General Internal Medicine 11/25/22 Bravo Edwards MD, PHD [address] [place] [address] Specialist Neurosurgery 06/10/21 documented as of this encounter
--- OUTSIDE RECORDS SUMMARY | 2024-07-05 10:00 | XMS_ITS | Encounter Summary ---
Author Organization [facility] Address [address] [place] [address] Care Team Providers Care Weaving Inspector Name Role Phone Kyle Chavez MD Primary Care Provider [phone] Bravo Edwards MD, PHD Unavailable [facility], Pcp [facility] Kyle Chavez MD Primary Care Provider [phone] Reason for Visit * Reason Onset Date Comments Testing 09/25/2020 MRI OF BRAIN NO CONTRAST Encounter Details Date Type Department Care Team Description 09/25/2020 Telephone Adult Medicine [address] [phone] Kyle Chavez MD [address] [place] [address] [id number] Testing (MRI OF BRAIN NO CONTRAST) Social [...] on filedocumented in this encounter Care Teams Weaving Inspector Relationship Specialty Start Date End Date Kyle Chavez MD [address] [place] [address] PCP - General Internal Medicine 11/11/19 11/21/22 [facility] Pcp [address] [place] [address] PCP - General Internal Medicine 11/22/22 11/24/22 Kyle Chavez MD [address] [place] [address] PCP - General Internal Medicine 11/25/22 Bravo Edwards MD, PHD [address] [place], [place] [address] Specialist Neurosurgery 06/10/21 documented as of this encounter
--- OUTSIDE RECORDS SUMMARY | 2024-07-05 10:00 | XMS_ITS | Encounter Summary ---
Author Organization [facility] Address [address] [place] [address] Care Team Providers Care Loan Processor Name Role Phone Amy Hernandez MD Primary Care Provider Unavail able Jean-Paul Carranza MD Primary Care Provider Unavail able Kyle Chavez MD Primary Care Provider [phone] Bravo Edwards MD, PHD Unavailable [facility], Pcp Primary Care Provider Unavailabl e Kyle Chavez MD Primary Care Provider [phone] Reason for Referral * Radiology Services (Routine) - Authorized/Booked Specialty Diagnoses / Procedures Referred By Minerva pina Referred To Contact Radiology Diagnoses Chronic right-sided low back pain with right-sided sciatica Procedures MRI OF LUMBAR SPINE W/WO CONTRAST MRI OF LUMBAR SPINE NO CONTRAST Martha Hopkins PA-C [address] [place] [address] Mri/[address] [address] Referral ID Status Reason Start Date Expiration Date V isits Requested Visits Authorized [facility] [id number] Authorized/ Booked 03/13/2018 05/13/2018 1 1 * Radiology Services (Routine) - Closed Specialty Diagnoses / Procedures Referred By Minerva pina Referred To Contact Radiology Diagnoses Abnormal head CT Procedures MRI OF BRAIN AND FURTHER SEQUENCES W/WO CON CONTRAST MRI OF BRAIN Martha Hopkins PA-C [address] [place] [address] Mri/[facility] [address] [place] [address] Referral ID Status Reason Start Date Expiration Date V isits Requested Visits Authorized [id number] Closed 03/13/2018 06/10/2018 1 1 * Radiology Services (Routine) - Closed Specialty Diagnoses / Procedures Referred By Contollie t Referred To Contact Radiology Diagnoses Cervical radiculopathy Procedures MRI OF CERVICAL SPINE NO CONTRAST Martha Hopkins PA-C [address] [place] [address] Mri/[place] [address] [place] [address] Referral ID Status Reason Start Date Expiration Date V isits Requested Visits Authorized [id number] Closed 07/16/2018 09/15/2018 1 1 Reason for Visit * Reason Onset Date Comments Testing 03/12/2018 Encounter Details Date Type Department Care Team Description 03/12/2018 Telephone Radiology - [facility] [address] [place] [address] Martha Hopkins PA-C Testing Social History Tobacco [...] also is scheduled for CT scans, does Martha want CT Scan or just MRI as [...] bilateral facet and uncovertebral hypertrophy result in rczw-gj-jqsobiyo spinal canal stenosis with mild bilateral, left [...] complex, bilateral facet anduncovertebral hypertrophy result in snlv-wa-eswqjbtv spinal canal stenosis with mild bilateral, leftgreater [...] nos documented in this encounter Care Teams Loan Processor Relationship Specialty Start Date End Date Amy Hernandez MD PCP - General Internal Medicine 02/01/18 06/03/18 Jean-Paul Carranza MD PCP - General Internal Medicine 06/04/18 11/10/19 Kyle Chavez MD [address] [place] [address] PCP - General Internal Medicine 11/11/19 11/21/22 [facility], Pcp [address] [place] [address] PCP - General Internal Medicine 11/22/22 11/24/22 Kyle Chavez MD [address] [place] [address] PCP - General Internal Medicine 11/25/22 Bravo Edwards MD, PHD [address] [place] [address] Specialist Neurosurgery 06/10/21 documented as of this encounter
--- OUTSIDE RECORDS SUMMARY | 2024-07-05 10:00 | XMS_ITS | Encounter Summary ---
Author Organization [facility] Address [address] [place] [address] Care Team Providers Care Netsuite Consultant Name Role Phone Amy Hernandez MD Primary Care Provider Unavail Jean-Paul Ortega MD Primary Care Provider Unavail Kyle Camejo MD Primary Care Provider [phone] Bravo Edwards MD, PHD Unavailable [facility] Primary Care Provider UnavailKyle Putnam MD Primary Care Provider [phone] Reason for Visit * Reason Onset Date Comments refill request 05/17/2018 Encounter Details Date Type Department Care Team Description 05/17/2018 Refill Adult Medicine [address] [address] Martha Moran PA-C refill request Social History Tobacco Use Types [...] encounter Miscellaneous Notes * Telephone Encounter - Amna Laureano M.A. - 05/17/2018 3:27 PM EST Message left for patient to return my call. * Telephone Encounter - Amy Hernandez MD - 05/17/2018 2:34 PM EST Will not provide ativan, her previous prescriber can give tapering dose until she gets in to see new psychiatrist. Also concerned that she just filled on 05/07 and is requesting refill. Please update PSI on patient record. * Telephone Encounter - Amna Laureano M.A. - 05/17/2018 1:52 PM EST I checked becki, pt had ativan filled on 05/07/2018 #90 by pranav Powell (ph: [phone] [facility]) I called the office and the pt has been discharged from the practice due to no shows. 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 The effexor was last filled 6.6.2018 Message left for patient to return my call. * Telephone Encounter - Amy Hernandez MD - 05/17/2018 1:18 PM EST I need more information here. When was her last prescription ? Is she changing from one psychiatrist to another ? * Telephone Encounter - Amna Laureano M.A. - 05/17/2018 1:05 PM EST See msg below from pt * Telephone Encounter - Emperatriz Hay - 05/17/2018 11:56 AM EST WILL MARTHA MORAN BE WILLING TO PRESCRIBE UNTIL SHE SEES HER NEW DOCTOR. PSYCH IS EXTREAMLY HARD TO GET INTO . PT STATES SHE HAS AN APPOINTMENT WITH A PROVIDER @ [facility] ON june WITH PAT Hitchcock AND STATES SHE IS WILLING TO SIGN AN MRR IF DR. REVELES NEEDS TO SHOW HER APPT Patient would like script to be: E-PRESCRIBED/FAXED TO PHARMACY WHEN WAS THE PATIENT'S LAST APPOINTMENT IN ADULT MEDICINE? 04/27/18 WHEN WAS THE LAST TIME THE PATIENT SAW THEIR PCP? Same as above Does patient have an upcoming appointment? Yes 05/30/18 (THE MEDICATION REQUESTED IS ON THE MED LIST ABOVE) All of the medications requested were on the CURRENT MEDS list Did you check the Pharmacy information above?: YES Patient wants: 90 -day supply Is this a mail order prescription request ? NO If the refill is from a FAXED refill request what is the RX # listed on the fax? N/A Patients current insurance carrier is: Payor: [employer] [facility] MCR / Plan: [facility] / Product Type: HMO [id number] documented in this encounter Plan of Treatment Not on file documented as of this encounter Visit Diagnoses Not on filedocumented in this encounter Care Teams Netsuite Consultant Relationship Specialty Start Date End Date Amy Hernandez MD PCP - General Internal Medicine 02/01/18 06/03/18 Jean-Paul Carranza MD PCP - General Internal Medicine 06/04/18 11/10/19 Kyle Chavez MD [address] [place] [address] PCP - General Internal Medicine 11/11/19 11/21/[address] [address] PCP - General Internal Medicine 11/22/22 11/24/22 Kyle Chavez MD [address] [place] [address] PCP - General Internal Medicine 11/25/22 Bravo Edwards MD, PHD [address] [place] [address] Specialist Neurosurgery 06/10/21 documented as of this encounter
--- OUTSIDE RECORDS SUMMARY | 2024-07-05 10:00 | XMS_ITS | Encounter Summary ---
Author Organization [facility] Address [address] [place] [address] Care Team Providers Care Check Scaler Name Role Phone Amy Hernandez MD Primary Care Provider Unavail Jean-Paul Ortega MD Primary Care Provider Unavail able Kyle Chavez MD Primary Care Provider [phone] Bravo Edwards MD, PHD Unavailable [facility], Pcp Primary Care Provider Unavailabl Kyle Washington MD Primary Care Provider [phone] Reason for Referral * Non FARHANA (Routine) - Authorized/Booked Specialty Diagnoses / Procedures Referred By Minerva pina Referred To Contact Podiatry Procedures REFERRAL TO PODIATRY Martha Hopkins PA-C [address] [place] [address] Pod/[address] [address] Referral ID Status Reason Start Date Expiration Date V isits Requested Visits Authorized [id number] MSG TO POD Authorized/ Booked 03/21/2018 03/21/2019 1 1 Reason for Visit * Reason Onset Date Comments Provider Call Back 03/21/2018 Encounter Details Date Type Department Care Team Description 03/21/2018 Telephone Adult Medicine [address] [address] Amy Hernandez MD Provider Call Back Social History Tobacco [...] Telephone Encounter - Jemal Jeong M.A. - 03/26/2018 9:07 AM EST Patient is aware. * Telephone Encounter - Martha Hopkins PA-C - 03/21/2018 4:11 PM EST I completed the referral externally but I cannot guarantee a sooner appointment * Telephone Encounter - Manasa Longo M.A. - 03/21/2018 1:25 PM EST Pt was seen by Martha today and is calling to advise Podiatry cannot see her until the end of May and pt feel that this is too long to wait to see the specialist * Telephone Encounter - Twyla Mendozaado - 03/21/2018 1:20 PM EST Caller requesting call back from provider: Is the caller the patient? YES If caller is not the patient, what is the callers name? N/A Callers relationship to patient? N/A If person calling is not the patient themselves, is there a verbal release in FYI or permanent comments for this person: NO Reason for call back: Patient would like to discuss with Martha or nurse lynch to patient's referral to podiatry, states her appt with podiatry here their appt is the end the May and patient does not want to wait that long, pt requesting to see if she can get placed somewhere else Caller offered to speak with the nurse for assistance: YES Response: Patient offered to speak with nurse for assistance and patient agreed. Message forwarded to nurse. documented in this encounter Plan of Treatment Not on file documented as of this encounter Visit Diagnoses Not on filedocumented in this encounter Care Teams Check Scaler Relationship Specialty Start Date End Date Amy Hernandez MD PCP - General Internal Medicine 02/01/18 06/03/18 Jean-Paul Carranza MD PCP - General Internal Medicine 06/04/18 11/10/19 Kyle Chavez MD [address] [place] [address] PCP - General Internal Medicine 11/11/19 11/21/22 [place] [address] PCP - General Internal Medicine 11/22/22 11/24/22 Kyle Chavez MD [address] [place] [address] PCP - General Internal Medicine 11/25/22 Bravo Edwards MD, PHD [address] [place] [address] Specialist Neurosurgery 06/10/21 documented as of this encounter
--- OUTSIDE RECORDS SUMMARY | 2024-07-05 10:00 | XMS_ITS | Encounter Summary ---
Author Organization [facility] Address [address] [place] [address] Care Team Providers Care Associate Drafter Name Role Phone Amy Hernandez MD Primary Care Provider Unavail able Jean-Paul Carranza MD Primary Care Provider Unavail able Kyle Chavez MD Primary Care Provider [phone] Bravo Edwards MD, PHD Unavailable [facility] Pcp Primary Care Provider Unavailabl Kyle Washington MD Primary Care Provider [phone] Encounter Details Date Type Department Care Team Description 04/17/2018 [facility] Adult [address] [address] Amy Hernandez MD Social History Tobacco Use [...] on filedocumented in this encounter Care Teams Associate Drafter Relationship Specialty Start Date End Date Amy Hernandez MD PCP - General Internal Medicine 02/01/18 06/03/18 Jean-Paul Carranza MD PCP - General Internal Medicine 06/04/18 11/10/19 Kyle Chavez MD [address] [place] [address] PCP - General Internal Medicine 11/11/19 11/21/22 [facility], Pcp [address] [place], [place] [address] PCP - General Internal Medicine 11/22/22 11/24/22 Kyle Chavez MD [address] [place] [address] PCP - General Internal Medicine 11/25/22 Bravo Edwards MD, PHD [address] [place] [address] Specialist Neurosurgery 06/10/21 documented as of this encounter
--- OUTSIDE RECORDS SUMMARY | 2024-07-05 10:00 | XMS_ITS | Encounter Summary ---
Author Organization [facility] Address [address] [place] [address] Care Team Providers Care Investigator Welfare Name Role Phone Amy Hernandez MD Primary Care Provider Unavail Jean-Paul Ortega MD Primary Care Provider Unavail able Kyle Chavez MD Primary Care Provider [phone] Bravo Edwards MD, PHD Unavailable [facility] Pcp Primary Care Provider UnavailKyle Putnam MD Primary Care Provider [phone] Encounter Details Date Type Department Care Team Description 03/28/2018 Transfer Records Medical Records [address] [place] [address] Abstract, Provider Social History Tobacco Use Types [...] on filedocumented in this encounter Care Teams Investigator Welfare Relationship Specialty Start Date End Date Amy Hernandez MD PCP - General Internal Medicine 02/01/18 06/03/18 Jean-Paul Carranza MD PCP - General Internal Medicine 06/04/18 11/10/19 Kyle Chavez MD [address] [place] [address] PCP - General Internal Medicine 11/11/19 11/21/22 [facility], Pcp [address] [place] [address] PCP - General Internal Medicine 11/22/22 11/24/22 Kyle Chavez MD [address] [place] [address] PCP - General Internal Medicine 11/25/22 Barvo Edwards MD, PHD [address] [place] [address] Specialist Neurosurgery 06/10/21 documented as of this encounter
--- OUTSIDE RECORDS SUMMARY | 2024-07-05 10:00 | XMS_ITS | Encounter Summary ---
Author Organization [facility] Address [address] [place] [address] Care Team Providers Care Last Greaser Name Role Phone Kyle Chavez MD Primary Care Provider [phone] Bravo Edwards MD, PHD Unavailable [facility], Pcp Primary Care Provider [facility] Kyle Chavez MD Primary Care Provider [phone] Reason for Referral * EXTERNAL (Routine) - Authorized/Booked Specialty Diagnoses / Procedures Referred By Contac t Referred To Contact Podiatry Diagnoses Pain of toe, unspecified laterality Procedures REFERRAL TO PODIATRY (OUT OF NETWORK) Kyle Chavez MD [address] [place] [address] Ramonita Morales [address] [place] [address] Referral ID Status Reason Start Date Expiration Date V isits Requested Visits Authorized [id number] Authorized/B ooked 08/24/2020 12/10/2020 1 1 Encounter Details Date Type Department Care Team Description 08/20/2020 Pt. Non Urgent Medical Question Adult Medicine [address] [address] Kyle Chavez MD [address] [place] [address] Pain of toe, unspecified laterality (Primary Dx) [...] - 08/21/2020 8:22 AM EDT Please see [facility] msg documented in this encounter Miscellaneous Notes * Telephone Encounter - Carmina Colindres M.A. - 08/20/2020 10:54 AM EDTFrom: Perla Dixon To: Dr. Jose Chavez Sent: 08/20/2020 1:10 AM EDT Subject: Feet Hello Dr. Chavez. I was seeing Dr Morales at [facility] in [place]. I have been trying to contact her [...] Primary documented in this encounter Care Teams Last Greaser Relationship Specialty Start Date End Date Kyle Chavez MD [address] [place] [address] PCP - General Internal Medicine 11/11/19 11/21/22 [facility], Pcp [address] [place] [address] PCP - General Internal Medicine 11/22/22 11/24/22 Kyle Chavez MD [address] [place] [address] PCP - General Internal Medicine 11/25/22 Bravo Edwards MD, PHD [address] [place] [address] Specialist Neurosurgery 06/10/21 documented as of this encounter
--- OUTSIDE RECORDS SUMMARY | 2024-07-05 10:00 | XMS_ITS | Encounter Summary ---
Author Organization [facility] Address [address] [place] [address] Care Team Providers Care Glass Ribbon Machine Operator Name Role Phone Armand Hernandez MD Primary Care Provider Unavail Jean-Paul Ortega MD Primary Care Provider Unavail Kyle Camejo MD Primary Care Provider [phone] Bravo Edwards MD, PHD Unavailable [facility] Pcp Primary Care Provider UnavailKyle Putnam MD Primary Care Provider [phone] Reason for Visit * Reason Onset Date Comments medication problems 05/30/2018 Encounter Details Date Type Department Care Team Description 05/30/2018 Refill Adult Medicine [address] [address] Armand Hernandez MD medication problems Social History Tobacco Use Types [...] encounter Miscellaneous Notes * Telephone Encounter - Armand Hernandez MD - 05/30/2018 1:33 PM EST Needs to come from her psychiatrist * Telephone Encounter - Damaris Nunez M.A. - 05/30/2018 1:[address] Reveles, Pt was suppose to see you today and canceled the appt. She is now calling asking for you to fill Ativan. I see we have already refused to fill this because she is suppose to be seeing a new psych. Please formally refuse. * Telephone Encounter - Mar Goodman - 05/30/2018 12:53 PM EST Who is calling? The patient Name of the medication Ativan What is the specific problem or interaction? Patient calling stated that she will be out of her medication on 06/06/18 and needs this refilled due to seizures wants to know if ARMAND REVELES will be willing to do a refill. If the patient is having a problem with taking the med - how long has the problem been going on? N/A documented in this encounter Plan of Treatment Not on file documented as of this encounter Visit Diagnoses Not on filedocumented in this encounter Care Teams Glass Ribbon Machine Operator Relationship Specialty Start Date End Date Armand Hernandez MD PCP - General Internal Medicine 02/01/18 06/03/18 Jean-Paul Carranza MD PCP - General Internal Medicine 06/04/18 11/10/19 Kyle Chavez MD [address] [place], [place] [phone] PCP - General Internal Medicine 11/11/19 11/21/22 [facility], Pcp [address] [place] [address] PCP - General Internal Medicine 11/22/22 11/24/22 Kyle Chavez MD [address] [place] [address] PCP - General Internal Medicine 11/25/22 Bravo Edwards MD, PHD [address] [place], [place] [phone] Specialist Neurosurgery 06/10/21 documented as of this encounter
--- OUTSIDE RECORDS SUMMARY | 2024-07-05 10:00 | XMS_ITS | Encounter Summary ---
Author Organization [facility] Address [address] [place] [address] Care Team Providers Care Bookkeeping Machine Operator Name Role Phone Jean-Paul Carranza MD Primary Care Provider Unavail Kyle Camejo MD Primary Care Provider [phone] Bravo Edwards MD, PHD Unavailable [facility], Pcp Primary Care Provider UnavailKyle Putnam MD Primary Care Provider [phone] Reason for Visit * Reason Onset Date Comments Orders Call 06/12/2018 Encounter Details Date Type Department Care Team Description 06/12/2018 Telephone Adult Medicine [address] [address] Jean-Paul Carranza MD Orders Call Social History [...] Fall - 06/12/2018 2:40 PM EST Payor: [facility] / Plan: [facility] / Product Type: [facility] [id number] Patient is requesting a list of their [...] (pneumococcus) documented in this encounter Care Teams Bookkeeping Machine Operator Relationship Specialty Start Date End Date Jean-Paul Carranza MD PCP - General Internal Medicine 06/04/18 11/10/19 Kyle Chavez MD [address] [place] [address] PCP - General Internal Medicine 11/11/19 11/21/22 [facility], [address] [address] PCP - General Internal Medicine 11/22/22 11/24/22 Kyle Chavez MD [address] [place] [address] PCP - General Internal Medicine 11/25/22 Bravo Edwards MD, PHD [address] [place] [address] Specialist Neurosurgery 06/10/21 documented as of this encounter
--- OUTSIDE RECORDS SUMMARY | 2024-07-05 10:00 | XMS_ITS | Encounter Summary ---
Author Organization [facility] Address [address] [facility] 7[address] [place] [address] Care Team Providers Care Automation Tester Name Role Phone Unavailable Primary Care Provider Unavailabl e Encounter Details Date Type Department Care Team (Late st Contact Info) Description 03/25/2024 Orders Only [facility] [address] [place] [address] Provider, Historical, Social History Tobacco Use Types [...]
--- OUTSIDE RECORDS SUMMARY | 2024-07-05 10:00 | XMS_ITS | Encounter Summary ---
Author Organization [facility] Address [address] [place] [address] Care Team Providers Care Pipe Tester Name Role Phone Amy Hernandez MD Primary Care Provider Unavail Jean-Paul Ortega MD Primary Care Provider Unavail Kyle Camejo MD Primary Care Provider [phone] Bravo Edwards MD, PHD Unavailable [facility] Pcp Primary Care Provider UnavailKyle Putnam MD Primary Care Provider [phone] Encounter Details Date Type Department Care Team Description 03/27/2018 Telephone Adult Medicine [address] [address] Amy Hernandez MD Social History Tobacco Use [...] Vincent R.N. - 03/27/2018 9:51 AM EST [phone] (home) [phone] (work) Pt has an appointment today with [...] on filedocumented in this encounter Care Teams Pipe Tester Relationship Specialty Start Date End Date Amy Hernandez MD PCP - General Internal Medicine 02/01/18 06/03/18 Jean-Paul Carranza MD PCP - General Internal Medicine 06/04/18 11/10/19 Kyle Chavez MD [address] [place] [address] PCP - General Internal Medicine 11/11/19 11/21/22 [place] [address] PCP - General Internal Medicine 11/22/22 11/24/22 Kyle Chavez MD [address] [place] [address] PCP - General Internal Medicine 11/25/22 Bravo Edwards MD, PHD [address] [place], [place] [phone] Specialist Neurosurgery 06/10/21 documented as of this encounter
--- OUTSIDE RECORDS SUMMARY | 2024-07-05 10:00 | XMS_ITS | Encounter Summary ---
Author Organization [facility] Address [address] [place] [address] Care Team Providers Care Coil Winding Supervisor Name Role Phone Carlos Nuno MD Primary Care Provider [phone] Lucia Duff MD Primary Care Provider Amy Maldonado MD Primary Care Provider Unavail able Jean-Paul Carranza MD Primary Care Provider Unavail able Kyle Chavez MD Primary Care Provider [phone] Bravo Edwards MD, PHD Unavailable [facility], Pcp Primary Care Provider Unavailabl Kyle Washington MD Primary Care Provider [phone] Reason for Visit * Reason Comments refill request refills Encounter Details Date Type Department Care Team Description 12/23/2003 Telephone Adult Medicine [address] [phone] Carlos Nuno MD [address] [place] [address] [phone] refill request (refills) Social History Tobacco Use Types Packs/Day Years Used Date Smoking Tobacco: Never Assessed Sex Assigned at Date Recorded Female 09/28/2021 7:19 AM E DT Job Start Date Occupation Industry Not on file Not on file Not on file documented as of this encounter Miscellaneous Notes * Telephone Encounter - 12/23/2003 3:31 PM EDTCALL RECEIVED. Contact: self [phone] Pt advised rx's will not be written [...] THE END OF THE DAY? YES Payor: [facility] INSURANCE Plan: [facility] INSURANCE Product Type: OTHER RX REFILLS MED NAME: Lorazepam DOSAGE: 0.5 mg # OF TABLETS: #112 INSTRUCTIONS: take up to 1 tab 4x daily documented in this encounter Plan of Treatment Not on file documented as of this encounter Visit Diagnoses Not on filedocumented in this encounter Care Teams Coil Winding Supervisor Relationship Specialty Start Date End Date Carlos Nuno MD [address] [place] [address] PCP - General 12/16/1994 02/11/15 Lucia Duff MD [address] [place] [address] PCP - General Internal Medicine 02/12/15 01/31/18 Amy Hernandez MD [address] [place], [place] [phone] PCP - General Internal Medicine 02/01/18 06/03/18 Jean-Paul Carranza MD [address] [place] [address] PCP - General Internal Medicine 06/04/18 11/10/19 Kyle Chavez MD [address] [place] [address] PCP - General Internal Medicine 11/11/19 11/21/22 On License Of [facility] [place] [phone] PCP - General Internal Medicine 11/22/22 11/24/22 Kyle Chavez MD [address] [place] [address] PCP - General Internal Medicine 11/25/22 Bravo Edwards MD, PHD [address] [place], [place] [phone] Specialist Neurosurgery 06/10/21 documented as of this encounter
--- OUTSIDE RECORDS SUMMARY | 2024-07-05 10:00 | XMS_ITS | Encounter Summary ---
Author Organization [facility] Address [address] [place] [address] Care Team Providers Care Divine Healer Name Role Phone Amy Hernandez MD Primary Care Provider Unavail Jean-Paul Ortega MD Primary Care Provider Unavail able Kyle Chavez MD Primary Care Provider [phone] Bravo Edwards MD, PHD Unavailable [facility], Pcp Primary Care Provider UnavailKyle Putnam MD Primary Care Provider [phone] Reason for Visit * Reason Onset Date Comments other 05/21/2018 MRI of neck Encounter Details Date Type Department Care Team Description 05/21/2018 [place] [address] [address] Martha Hopkins PA-C other (MRI of neck) [...] on filedocumented in this encounter Care Teams Divine Healer Relationship Specialty Start Date End Date Amy Hernandez MD PCP - General Internal Medicine 02/01/18 06/03/18 Jean-Paul Carranza MD PCP - General Internal Medicine 06/04/18 11/10/19 Kyle Chavez MD [address] [place] [address] PCP - General Internal Medicine 11/11/19 11/21/22 [facility], Pcp [address] [place], [place] [phone] PCP - General Internal Medicine 11/22/22 11/24/22 Kyle Chavez MD [address] [place] [address] PCP - General Internal Medicine 11/25/22 Bravo Edwards MD, PHD [address] [place] [address] Specialist Neurosurgery 06/10/21 documented as of this encounter
--- OUTSIDE RECORDS SUMMARY | 2024-07-05 10:01 | XMS_ITS | Encounter Summary ---
Author Organization [facility] Address [address] [place] [address] Care Team Providers Care Switchboard Operator Helper Name Role Phone Lucia Duff MD Primary Care Provider Amy Maldonado MD Primary Care Provider Unavail able Jean-Paul Carranza MD Primary Care Provider Unavail able Kyle Chavez MD Primary Care Provider [phone] Bravo Edwards MD, PHD [facility]available [facility] Primary Care Provider Unavailabl Kyle Washington MD Primary Care Provider [phone] Encounter Details Date Type Department Care Team Description 01/09/2018 Release of Information Medical Records [address] [place] [address] Abstract, Provider Social History Tobacco Use Types [...] on filedocumented in this encounter Care Teams Switchboard Operator Helper Relationship Specialty Start Date End Date Lucia Duff MD PCP - General Internal Medicine 02/12/15 01/31/18 Amy Hernandez MD PCP - General Internal Medicine 02/01/18 06/03/18 Jean-Paul Carranza MD PCP - General Internal Medicine 06/04/18 11/10/19 Kyle Chavez MD [address] [place] [address] PCP - General Internal Medicine 11/11/19 11/21/22 [facility], Pcp [address] [place] [address] PCP - General Internal Medicine 11/22/22 11/24/22 Kyle Chavez MD [address] [place] [address] PCP - General Internal Medicine 11/25/22 Bravo Edwards MD, PHD [address] [place] [address] Specialist Neurosurgery 06/10/21 documented as of this encounter
--- OUTSIDE RECORDS SUMMARY | 2024-07-05 10:01 | XMS_ITS | Encounter Summary ---
Author Organization [facility] Address [address] [place] [address] Care Team Providers Care Board Certified Music Therapist Name Role Phone Kyle Chavez MD Primary Care Provider [phone] Bravo Edwards MD, PHD Unavailable [facility], Pcp Primary Care [facility] Kyle Chavez MD Primary Care Provider [phone] Encounter Details Date Type Department Care Team Description 07/22/2020 Refill Gastroenterology - [address] [phone] Kyle Chavez MD [address] [place] [phone] Social History Tobacco Use Types Packs/Day Years [...] encounter Miscellaneous Notes * Telephone Encounter - Shae Payan M.A. - 07/22/2020 8:43 AM EDT Mychart msg sent documented in this encounter Plan of Treatment Not on file documented as of this encounter Visit Diagnoses Not on filedocumented in this encounter Care Teams Board Certified Music Therapist Relationship Specialty Start Date End Date Kyle Chavez MD [address] [place] [address] PCP - General Internal Medicine 11/11/19 11/21/22 [facility], Pcp [address] [place], [place] [phone] PCP - General Internal Medicine 11/22/22 11/24/22 Kyle Chavez MD [address] [place] [address] PCP - General Internal Medicine 11/25/22 Bravo Edwards MD, PHD [address] [place], [place] [address] Specialist Neurosurgery 06/10/21 documented as of this encounter
--- OUTSIDE RECORDS SUMMARY | 2024-07-05 10:01 | XMS_ITS | Encounter Summary ---
Author Organization [facility] Address [address] [place] [address] Care Team Providers Care Student Life Advisor Name Role Phone Kyle Chavez MD Primary Care Provider [phone] Bravo Edwards MD, PHD Unavailable [facility], Pcp Primary [facility] Kyle Chavez MD Primary Care Provider [phone] Encounter Details Date Type Department Care Team Description 03/23/2020 Pt. Non Urgent Medical Question Adult Medicine [address] [phone] Rosa Hanson PA-C [address] [place] [address] [phone] Social History Tobacco Use Types Packs/Day Years [...] on filedocumented in this encounter Care Teams Student Life Advisor Relationship Specialty Start Date End Date Kyle Chavez MD [address] [place] [address] PCP - General Internal Medicine 11/11/19 11/21/22 [facility], Pcp [address] [place], [place] [address] PCP - General Internal Medicine 11/22/22 11/24/22 Kyle Chavez MD [address] [place] [address] PCP - General Internal Medicine 11/25/22 Bravo Edwards MD, PHD [address] [place] [address] Specialist Neurosurgery 06/10/21 documented as of this encounter
--- OUTSIDE RECORDS SUMMARY | 2024-07-05 10:01 | XMS_ITS | Encounter Summary ---
Author Organization [facility] Address [address] [place] [address] Care Team Providers Care Butt Presser Name Role Phone Kyle Chavez MD Primary Care Provider [phone] Bravo Edwards MD, PHD Unavailable [facility], Pcp Primary Care Provider [facility] Kyle Chavez MD Primary Care Provider [phone] Encounter Details Date Type Department Care Team Description 09/14/2022 Pt. Non Urgent Medical Question Adult Medicine [address] [phone] Kyle Chavez MD [address] [place] [address] [phone] Social History Tobacco Use Types Packs/Day Years [...] on filedocumented in this encounter Care Teams Butt Presser Relationship Specialty Start Date End Date Kyle Chavez MD [address] [place] [address] PCP - General Internal Medicine 11/11/19 11/21/22 [facility], Pcp [address] [place], [place] [address] PCP - General Internal Medicine 11/22/22 11/24/22 Kyle Chavez MD [address] [place] [address] PCP - General Internal Medicine 11/25/22 Bravo Edwards MD, PHD [address] [place], [place] [address] Specialist Neurosurgery 06/10/21 documented as of this encounter
--- OUTSIDE RECORDS SUMMARY | 2024-07-05 10:01 | XMS_ITS | Encounter Summary ---
Author Organization [facility] Address [address] [place] [address] Care Team Providers Care Mission Analyst Name Role Phone Kyle Chavez MD Primary Care Provider [phone] Bravo Edwards MD, PHD Unavailable [facility], Pcp Primary Care Provider [facility] Kyle Chavez MD Primary Care Provider [phone] Reason for Visit * Reason Onset Date Comments Mychart Rx Refill 03/23/2020 Encounter Details Date Type Department Care Team Description 03/23/2020 Refill Adult Medicine [address] [address] Rosa Hanson PA-C [address] [place] [address] Mychart Rx Refill Social History Tobacco Use [...] on filedocumented in this encounter Care Teams Mission Analyst Relationship Specialty Start Date End Date Kyle Chavez MD [address] [place] [address] PCP - General Internal Medicine 11/11/19 11/21/22 [facility], [address] [address] PCP - General Internal Medicine 11/22/22 11/24/22 Kyle Chavez MD [address] [place] [address] PCP - General Internal Medicine 11/25/22 Bravo Edwards MD, PHD [address] [place], [place] [address] Specialist Neurosurgery 06/10/21 documented as of this encounter
--- OUTSIDE RECORDS SUMMARY | 2024-07-05 10:01 | XMS_ITS ---
Author Organization [facility] Address [address] [facility] [place] [address] Care Team Providers Care Fence Rider Name Role Phone Cheko Chavez MD Primary Care Provider Julienne Cade Unavailable [phone] Allergies Allergen (clinical drug ingredient) Drug/Non Drug [...] 024 Encounters Encounter Location Date Provider Diagnosis [facility] [address] [address] 11/21/2023 Julienne Pop Tinea unguium B35.1 and Type 2 diabetes mellitus with polyneuropathy E11.42 Assessments Encounter Date Diagnosis (ICD Code) Assessment Notes Treatment Notes Treatment Clinical Notes Section Notes 11/21/2023 Tinea unguium (ICD-10 - B35.1) 11/21/2023 Type 2 diabetes mellitus with polyneuropathy (ICD-10 - E11.42) Plan Of Treatment Next Appt Details Follow Up: 3 Months, Reason: Provider Name:Julienne rock, 08/21/2024 11:00:00 AM, [address] [place] [address], [address], Procedure Notes * Category Sub-Category Detail Notes [...] as necessary. Patient chooses, no pharmaceutical tx (11320) Keratoma Treatment Parring or Cutting o f Benign Hyperkeratotic Lesion(s) 06151 ( More than 4 Lesions ) - The Benign hyperkeratotic lesions, as described above were pared, and/or cut utilizing a sterile 15 blade, tissue nippers, and/or dremel Progress Notes * Shawn TROTTEROB:1964 (58 yo F)Acc No.[id number]:11/21/2023 Progress Note Patient:?Perla Trotter Provider:?Julienne Pop DPM :1965???Age:58 Y???Sex:Female D ate:11/21/2023 Address:[address] [place] [address], [place] Pcp:Cheko Chavez MD Subjective: * Chief Complaints: [...] 6.1 * Examination: ???Ophthalmology Referral: ?DIABETES EYE EXAM?Diabetic Retinopathy Screening:?No ?Findings of Diabetic Eye Exam:?no retinopathy?Neurological: ?SENSORY:?Neurological [...] as necessary. Patient chooses, no pharmaceutical tx (85741).?Keratoma Treatment:?Parring or Cutting of Benign Hyperkeratotic Lesion(s)?21057 ( More than 4 Lesions ) - The Benign hyperkeratotic lesions, as described above were pared, and/or cut utilizing a sterile 15 blade, tissue nippers, and/or dremel.? * Procedure Codes:?98959 DEBRI DE NAIL, 6 OR MORE, Modifiers: XS 78715 TRIM SKIN LESIONS, OVER 4, Modifiers: XS * Follow Up:?3 Months * Images: * Sign off status: Completed true * Provider:?Julienne Pop DPM Date:? Generated for Lia sigala/Billy/Kelsi on:?07/05/2024 10:00 AM EST History and Physical Notes * [...]
--- OUTSIDE RECORDS SUMMARY | 2024-07-05 10:01 | XMS_ITS | Encounter Summary ---
Author Organization [facility] Address [address] [place] [address] Care Team Providers Care Director Of Slot Operations Name Role Phone Kyle Chavez MD Primary Care Provider [phone] Bravo Edwards MD, PHD Unavailable [facility], Pcp Primary Care Provider [facility] Kyle Chavez MD Primary Care Provider [phone] Encounter Details Date Type Department Care Team Description 08/24/2022 Pt. Non Urgent Medical Question Adult Medicine [address] [phone] Kyle Chavez MD [address] [place] [address] [phone] Social History Tobacco Use Types Packs/Day Years [...] appointment to check my blood pressure in [facility]. I made it for September 22. I need to change that appointment. I didn't realize I already have an appointment that day. Could someone please call me to reschedule. Thank you...Perla documented in this encounter Plan of Treatment Not on file documented as of this encounter Visit Diagnoses Not on filedocumented in this encounter Care Teams Director Of Slot Operations Relationship Specialty Start Date End Date Kyle Chavez MD [address] [place] [address] PCP - General Internal Medicine 11/11/19 11/21/22 [place] [phone] PCP - General Internal Medicine 11/22/22 11/24/22 Kyle Chavez MD [address] [place] [address] PCP - General Internal Medicine 11/25/22 Bravo Edwards MD, PHD [address] [place], [place] [address] Specialist Neurosurgery 06/10/21 documented as of this encounter
--- OUTSIDE RECORDS SUMMARY | 2024-07-05 10:01 | XMS_ITS ---
Author Organization [facility] Address [address] [facility] [place] [address] Care Team Providers Care Mushroom Cultivator Name Role Phone Cheko Chavez MD Primary Care Provider Julienne Cade Unavailable [phone] Allergies Allergen (clinical drug ingredient) Drug/Non Drug [...] 025 Encounters Encounter Location Date Provider Diagnosis [facility] [address] [address] 05/29/2024 Julienne Pop Type 2 diabetes mellitus [...] Provider Name:Julienne rock, 08/21/2024 11:00:00 AM, [address] [place], [address], Procedure Notes * Category Sub-Category Detail Notes [...] use of a nail nipper and/or dremel-type bearing grinder, to a more viable healthy nail [...] to maintain effectiveness in symptomatic relief - 46244 Keratoma Treatment Parring or Cutting o f [...] instrumentation by the physician of record - 80188 Progress Notes * Rehana TROTTERhyDOB:1964 (59 yo F)Acc No.[id number]:05/29/2024 Progress Note Patient:?Perla TROTTER Provider:?Julienne Pop DPM :1965???Age:59 Y???Sex:Female D ate:05/29/2024 Address:[address] [place] [address] [facility] [place] [place] Pcp:Cheko Chavez MD Subjective: * Chief Complaints: [...] 6.2 * Examination: ???Ophthalmology Referral: ?DIABETES EYE EXAM?Procedure Performed:?Yes ?Date of Exam Performed?06/01/2023 ?Findings of Diabetic Eye Exam:?no retinopathy?Neurological: ?SENSORY:?Neurological [...] use of a nail nipper and/or dremel-type bearing grinder, to a more viable healthy nail [...] to maintain effectiveness in symptomatic relief - 57843.?Keratoma Treatment:?Parring or Cutting of Benign Hyperkeratotic Lesion(s)?(-57) [...] instrumentation by the physician of record - 93460.? * Procedure Codes:?68794 DEBRI DE NAIL, 6 OR MORE, Modifiers: XS 01435 TRIM SKIN LESIONS, OVER 4, Modifiers: XS * Follow Up:?2 Months * Images: * Sign off status: Completed true * Provider:?Julienne Pop DPM Date:? Generated for Lia sigala/Billy/Kelsi on:?07/05/2024 10:01 AM EST History and Physical Notes * HPI (History of Present Illness) Category Sub-Category Detail Notes Category Not es At Risk footcare Pt States Last PCP Visit: Date: Examination Category Sub-Category Detail Notes Category Not [...]
--- OUTSIDE RECORDS SUMMARY | 2024-07-05 10:01 | XMS_ITS | Encounter Summary ---
Author Organization [facility] Address [address] [place] [address] Care Team Providers Care It Program Manager Name Role Phone Kyle Chavez MD Primary Care Provider [phone] Bravo Edwards MD, PHD Unavailable [facility], [facility] Primary Care Provider [facility] Kyle Chavez MD Primary Care Provider [phone] Encounter Details Date Type Department Care Team Description 06/24/2022 Pt. Non Urgent Medical Question Adult Medicine [address] [phone] Kyle Chavez MD [address] [place] [address] [phone] Social History Tobacco Use Types Packs/Day Years [...] on filedocumented in this encounter Care Teams It Program Manager Relationship Specialty Start Date End Date Kyle Chavez MD [address] [place] [address] PCP - General Internal Medicine 11/11/19 11/21/22 Community, Pcp [address] [place], [place] [phone] PCP - General Internal Medicine 11/22/22 11/24/22 Kyle Chavez MD [address] [place] [address] PCP - General Internal Medicine 11/25/22 Bravo Edwards MD, PHD [address] [place] [address] Specialist Neurosurgery 06/10/21 documented as of this encounter
--- OUTSIDE RECORDS SUMMARY | 2024-07-05 10:02 | XMS_ITS | Encounter Summary ---
Author Organization [facility] Address [address] [place] [address] Care Team Providers Care Polytechnic Teacher Name Role Phone Bravo Edwards MD, PHD Unavailable Unava ilable Kyle Chavez MD Primary Care Provider [phone] Encounter Details Date Type Department Care Team Description 11/17/2023 [facility] Medical [facility] Neurosurgery [place] [address] [place] [address] Bravo Edwards MD, PHD Social [...] on filedocumented in this encounter Care Teams Polytechnic Teacher Relationship Specialty Start Date End Date Kyle Chavez MD [address] [place] [address] [phone] PCP - General Internal Medicine 11/25/22 Bravo Edwards MD, PHD Specialist Neurosurgery 06/10/21 documented as of this encounter
--- OUTSIDE RECORDS SUMMARY | 2024-07-05 10:02 | XMS_ITS | Encounter Summary ---
Author Organization [facility] Address [address] [place] [address] Care Team Providers Care Hydrology Technician Name Role Phone Kyle Chavez MD Primary Care Provider [phone] Bravo Edwards MD, PHD Unavailable [facility], Pcp Primary Care Provider [facility] Kyle Chavez MD Primary Care Provider [phone] Encounter Details Date Type Department Care Team Description 10/20/2021 Refill Adult Medicine [address] [phone] Kyle Chavez MD [address] [place] [address] [phone] Social History Tobacco Use Types Packs/Day Years [...] on filedocumented in this encounter Care Teams Hydrology Technician Relationship Specialty Start Date End Date Kyle Chavez MD [address] [place] [address] [phone] PCP - General Internal Medicine 11/11/19 11/21/22 Community, Pcp [address] [place] [address] PCP - General Internal Medicine 11/22/22 11/24/22 Kyle Chavez MD [address] [place] [address] PCP - General Internal Medicine 11/25/22 Bravo Edwards MD, PHD [address] [place] [address] Specialist Neurosurgery 06/10/21 documented as of this encounter
--- OUTSIDE RECORDS SUMMARY | 2024-07-05 10:02 | XMS_ITS | Encounter Summary ---
Author Organization [facility] Address [address] [place] [address] Care Team Providers Care Commissary Officer Name Role Phone Kyle Chavez MD Primary Care Provider [phone] Reason for Visit * Reason Comments Rash Encounter Details Date Type Department Care Team ([facility] Contact Info) Description 06/19/2024 1:30 PM EST Office Visit Adult Medicine [address] [phone] Julienne Henry PA [address] [place] [address] Cellulitis, umbilical (Primary Dx); Right acute serous otitis media, recurrence not specified Social History Tobacco Use Types Packs/Day Years [...] care for your loved ones. For example, children's zoo caretaker or elderly care for an older adult? [...] on file documented as of this encounter Last Filed Vital Signs Vital Sign Reading Time Taken Comments Blood Pressure 112/64 06/19/2024 1:13 PM EST Pulse 94 06/19/2024 1:13 PM EST Temperature 36.1 ??C (97 ??F) 06/19/2024 1:13 PM EST Respiratory Rate 12 06/19/2024 1:13 PM EST Oxygen Saturation - - Inhaled Oxygen Concentration - - Weight 67.6 kg (149 lb) 06/19/2024 1:13 PM EST Height 157.5 cm (5' 2 ) 06/19/2024 1:13 PM EST Body Mass Index 27.25 06/19/2024 1:13 PM EST documented in this encounter Ordered Prescriptions Prescription Sig Dispense Quantity Refills Last Filled Start Date End Date diclofenac (VOLTAREN) 1 % topical gel Apply 1 g topically 2 (two) times a day. 100 g 06/19/2024 SUMAtriptan (IMITREX) 50 mg tablet Take 1 tablet (50 mg total) by mouth 1 (one) time if needed for migraine. MAY REPEAT DOSE 1 TIME AFTER 2 HOURS, NEEDED. MAX 2 IN 24 HOURS 9 tablet 06/19/2024 clotrimazole (LOTRIMIN) 1 % cream Apply topically 2 (two) times a day for 14 days. 15 g 06/19/2024 doxycycline (VIBRAMYCIN) 100 mg capsule Take 1 capsule (100 mg total) by mouth 2 (two) times a day for 10 days. Take with at least 8 ounces (large glass) of water, do not lie down for 30 minutes after. Administer 2 hours before or after multivitamins, antacids, or other products containing polyvalent cations (i.e., calcium, iron, magnesium, selenium, zinc). 20 each 06/19/2024 5 documented in this encounter Progress Notes * ROXY Auguste - 06/19/2024 1:30 PM EST CHIEF COMPLAINT: Rash IDENTIFIER: Perla Dixon is a 59 y.o. old female. HPI: 59 year old female presents to office for evaluation of rash and redness to umbilicus, she states she noticed symptoms Monday. She states she has noticed a musty odor from area and has noted clear and white drainage. She has been keeping area clean and dry. She denies fever, chills She is also reporting right ear discomfort, denies drainage, fever, chills. She reports chronic nasal congestion She is requesting refills of Imitrex and diclofenac gel ROS: GENERAL: No malaise or fever HEENT: No changes in hearing or vision RESPIRATORY: No cough, wheezing or shortness of breath CARDIOVASCULAR: No chest pain GI: No abdominal pain, diarrhea, constipation SKIN: SEE HPI NEURO: No persistent headache, syncope, numbness All other systems reviewed and negative. PAST MEDICAL HISTORY: Patient Active Problem List Diagnosis Date Noted Opiate dependence ([facility]) 02/07/2024 Acid reflux 03/23/2020 Abnormal brain MRI 02/28/2018 Diabetic neuropathy ([facility]) 02/28/2018 Gait instability 02/28/2018 Type 2 diabetes mellitus ([facility]) 02/28/2018 Stress incontinence 07/26/2017 Hyperlipidemia LDL goal <100 12/02/2015 Morbid obesity ([facility]) 07/31/2015 Chronic hepatitis C without hepatic coma ([facility]) 05/18/2015 Pulmonary nodules 04/01/2015 Insomnia 03/31/2015 Major depressive disorder 03/31/2015 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 Chronic back pain 02/25/2005 ACTIVE MEDICATIONS: Current Outpatient Medications Medication Instructions acetaminophen (TYLENOL) 1,000 mg, Every 6 hours PRN ammonium lactate (AMLACTIN) 12 % cream Daily blood sugar diagnostic (FreeStyle Lite Strips) test strip 1 each, 3 times daily blood-glucose meter kit 1 Lancet, Daily buprenorphine-naloxone (SUBOXONE) 8-2 mg per SL tablet 2 tablets clotrimazole (LOTRIMIN) 1 % cream Topical, 2 times daily diclofenac (VOLTAREN) 1 g, Topical, 2 times daily doxycycline (VIBRAMYCIN) 100 mg, oral, 2 times daily, Take with at least 8 ounces (large glass) of water, do not lie down for 30 minutes after. Administer 2 hours before or after multivitamins, antacids, or other products containing polyvalent cations (i.e., calcium, iron, magnesium, selenium, zinc). estrogens, conjugated (PREMARIN VAGL) vaginal famotidine (PEPCID) 20 mg, oral, Every morning FREESTYLE LANCETS MISC 1 EA, 3 times daily glycopyrrolate (ROBINUL) 2 mg tablet TAKE ONE TABLET BY MOUTH THREE TIMES DAILY AT 9AM, 1PM AND 5PM incontinence pad, liner, disp (Bladder Control Pads) pad 1 each, 4 times daily lidocaine (LIDODERM) 5 % patch 1 patch, Daily naproxen (NAPROSYN) 500 mg tablet 1 tablet, 2 times daily with meals nystatin (MYCOSTATIN) cream 2 times daily polyethylene glycol (MIRALAX) 17 g, Daily pregabalin (LYRICA) 150 mg, 3 times daily SUMAtriptan (IMITREX) 50 mg, oral, Once as needed, MAY REPEAT DOSE 1 TIME AFTER 2 HOURS, NEEDED.MAX 2 IN 24 HOURS traZODone (DESYREL) 100 mg tablet TAKE ONE TABLET BY MOUTH DAILY AT 5 PM EVERY EVENING venlafaxine XR (EFFEXOR-XR) 300 mg, oral, Every morning ALLERGIES: Allergies Allergen Reactions Amoxicillin-Pot Clavulanate Vomiting, diarrhea Can take Amoxicillin or Penicillin Cefaclor Angioedema, itchy Flurazepam Itching Hydrocodone-Acetaminophen Nausea, vomiting Nitrofurantoin Nausea, vomiting PHYSICAL EXAM: Blood pressure 112/64, pulse 94, temperature 36.1 ??C (97 ??F), resp. rate 12, height 1.575 m (62 ), weight 67.6 kg (149 lb). Body mass index is 27.25 kg/m??. APPEARANCE: Alert and in no acute distress EYES: Conjunctiva and sclera normal EAR: External ears normal, canals clear, R TM dull with mild erythema, L TM dull HEART: RRR with normal S1 and S2 LUNG: clear to auscultation, no wheezing, rales, or rhonchi ABDOMEN: Bowel sounds normoactive, soft, non-tender, without organomegaly or palpable masses. Erythema to umbilicus, no active drainage EXTREMITIES: Extremities warm and well perfused without clubbing, cyanosis, or edema NEURO: Awake, alert and oriented x 3 IMPRESSION: 1. Cellulitis, umbilical 2. Right acute serous otitis media, recurrence not specified PLAN: Will cover for possible cellulitis with doxycycline course (allergy to augmentin and cefaclor). Will also send clotrimazole to cover for fungal etiology. Advised to keep area clean and dry and monitor symptoms Serous otitis media - due to slight erythema, doxcycycline will also cover for possible early bacterial OM, advised to monitor symptoms Patient verbalized understanding and is in agreement with plan. ADDITIONAL ORDERS: No orders of the defined types were placed in this encounter. None ROXY Auguste on 06/19/2024 at 1:38 PM EST Today's documentation was made using voice recognition software.This note may contain grammatical errors secondary to this software. documented in this encounter Plan of Treatment Upcoming Encounters Date Type Department Care Team (Late st Contact Info) Description 07/18/2024 4:00 PM EDT Office Visit [address] [phone] Abby [place] PA [address] [place] [address] 09/09/2024 2:30 PM EDT Office Visit [address] [phone] Kyle Chavez MD [address] [place] [address] documented as of this encounter Visit Diagnoses Diagnosis Cellulitis, umbilical- Primary Right acute serous otitis media, recurrence not specified documented in this encounter Discontinued Medications Medication Sig Discontinue Reason Start Date End Da te diclofenac (VOLTAREN) 1 % topical gel Apply 1 g topically 2 (two) times a day. Reorder 02/21/2023 06/19/2024 SUMAtriptan (IMITREX) 50 mg tablet Take 1 tablet (50 mg total) by mouth 1 (one) time if needed for migraine. MAY REPEAT DOSE 1 TIME AFTER 2 HOURS, NEEDED. MAX 2 IN 24 HOURS Reorder 12/14/2021 06/19/2024 documented as of this encounter Additional Health Concerns Assessment Noted Time PHQ-9 Depression Total Score: 16 025 3:49 PM EST documented as of this encounter Care Teams Commissary Officer Relationship Specialty Start Date End Date Kyle Chavez MD [address] [place] [address] PCP - General Internal Medicine 06/18/24 documented as of this encounter
--- OUTSIDE RECORDS SUMMARY | 2024-07-05 10:02 | XMS_ITS | Encounter Summary ---
Author Organization [facility] Address [address] [place] [address] Care Team Providers Care Burnishing Machine Operator Name Role Phone Bravo Edwards MD, PHD Unavailable Unava Kyle King MD Primary Care Provider Reason for Visit * Reason Onset Date Comments Letter 02/21/2024 Encounter Details Date Type Department Care Team Description 02/21/2024 Pt. Non Urgent Medical Question Adult Medicine [address] [phone] Kyle Chavez MD [address] [place] [address] Social History Tobacco Use Types Packs/Day Years [...] Telephone Encounter - Damaris Nunez M.A. - 02/21/2024 5:40 AM EDTFrom: ePrla Dixon To: Jose Chavez Sent: 02/21/2024 5:06 [...] if you are and when I could nut picker the letter. I will be fined $100 if I don't receive that letter soon. Thank you and I hope you are well! documented in this encounter Plan of Treatment Not on file documented as of this encounter Visit Diagnoses Not on filedocumented in this encounter Care Teams Burnishing Machine Operator Relationship Specialty Start Date End Date Kyle Chavez MD [address] [place] [address] PCP - General Internal Medicine 11/25/22 Bravo Edwards MD, PHD Specialist Neurosurgery 06/10/21 documented as of this encounter
--- OUTSIDE RECORDS SUMMARY | 2024-07-05 10:02 | XMS_ITS | Encounter Summary ---
Author Organization [facility] Address [address] [place] [address] Care Team Providers Care Checker Cashier Name Role Phone Kyle Chavez MD Primary Care Provider [phone] Bravo Edwards MD, PHD Unavailable [facility], Pcp [facility] Kyle Chavez MD Primary Care Provider [phone] Reason for Visit * Reason Onset Date Comments APPOINTMENT 12/22/2021 Encounter Details Date Type Department Care Team Description 12/22/2021 Pt. Non Urgent Medical Question Adult Medicine [address] [address] Kyle Chavez MD [address] [place] [address] Social History Tobacco Use Types Packs/Day Years [...] Telephone Encounter - Shannan Barbour M.A. - 12/22/2021 4:23 PM EDTFrom: Perla Zack To: Jose Chavez Sent: 12/22/2021 4:07 PM EDT Subject: Appointment A nurse called me at 3:55 just shortly ago and I have an appointment at [facility] but I am not sure is it Monday? It's for urgent Care! I believe her name was Marcelina I am so sick I couldn't remember what she said and I didn't write it down.... My apologies... Perla documented in this encounter Plan of Treatment Not on file documented as of this encounter Visit Diagnoses Not on filedocumented in this encounter Care Teams Checker Cashier Relationship Specialty Start Date End Date Kyle Chavez MD [address] [place] [address] PCP - General Internal Medicine 11/11/19 11/21/22 [facility], Pcp [address] [place] [address] PCP - General Internal Medicine 11/22/22 11/24/22 Kyle Chavez MD [address] [place] [address] PCP - General Internal Medicine 11/25/22 Bravo Edwards MD, PHD [address] [place], [place] [phone] Specialist Neurosurgery 06/10/21 documented as of this encounter
--- OUTSIDE RECORDS SUMMARY | 2024-07-05 10:02 | XMS_ITS | Encounter Summary ---
Author Organization [facility] Address [address] [place] [address] Care Team Providers Care Revenue Cycle Manager Name Role Phone Kyle Chavez MD Primary Care Provider [phone] Bravo Edwards MD, PHD Unavailable [facility], [facility] Primary Care Provider [facility] Kyle Chavez MD Primary Care Provider [phone] Encounter Details Date Type Department Care Team Description 02/07/2022 Pt. Non Urgent Medical Question Adult Medicine [address] [phone] Kyle Chavez MD [address] [place] [address] [phone] Social History Tobacco Use Types Packs/Day Years [...] on filedocumented in this encounter Care Teams Revenue Cycle Manager Relationship Specialty Start Date End Date Kyle Chavez MD [address] [place] [address] PCP - General Internal Medicine 11/11/19 11/21/22 [facility], Pcp [address] [place], [place] [phone] PCP - General Internal Medicine 11/22/22 11/24/22 Kyle Chavez MD [address] [place] [address] PCP - General Internal Medicine 11/25/22 Bravo Edwards MD, PHD [address] [place] [address] Specialist Neurosurgery 06/10/21 documented as of this encounter
--- OUTSIDE RECORDS SUMMARY | 2024-07-05 10:02 | XMS_ITS | Encounter Summary ---
Author Organization [facility] Address [address] [place] [address] Care Team Providers Care Swing Tender Name Role Phone Kyle Chavez MD Primary Care Provider [phone] Bravo Edwards MD, PHD Unavailable [facility], Pcp [facility] Kyle Chavez MD Primary Care Provider [phone] Reason for Visit * Reason Onset Date Comments TEST RESULTS 10/29/2021 Encounter Details Date Type Department Care Team Description 10/29/2021 Pt. Non Urgent Medical Question Adult Medicine [address] [address] Kyle Chavez MD [address] [place] [address] [phone] Social History Tobacco Use Types Packs/Day Years [...] Telephone Encounter - Shannan Barbour M.A. - 10/29/2021 9:28 AM EDTFrom: Perla Zack To: Jose Chavez Sent: 10/29/2021 9:18 AM EDT Subject: Test results My urine test result has listed under bacteria a large amount does that mean I have an infection? Please someone call me on Monday and explain what that means thank you. documented in this encounter Plan of Treatment Not on file documented as of this encounter Visit Diagnoses Not on filedocumented in this encounter Care Teams Swing Tender Relationship Specialty Start Date End Date Kyle Chavez MD [address] [place], [place] [phone] PCP - General Internal Medicine 11/11/19 11/21/22 [facility], Pcp [address] [place] [address] PCP - General Internal Medicine 11/22/22 11/24/22 Kyle Chavez MD [address] [place] [address] PCP - General Internal Medicine 11/25/22 Bravo Edwards MD, PHD [address] [place], [place] [phone] Specialist Neurosurgery 06/10/21 documented as of this encounter
--- OUTSIDE RECORDS SUMMARY | 2024-07-05 10:02 | XMS_ITS | Encounter Summary ---
Author Organization [facility] Address [address] [place] [address] Care Team Providers Care Drafter Assistant Name Role Phone Kyle Chavez MD Primary Care Provider [phone] Bravo Edwards MD, PHD Unavailable [facility], Pcp Primary Care Provider [facility] Kyle Chavez MD Primary Care Provider [phone] Reason for Visit * Reason Onset Date Comments Mychart Rx Refill 12/13/2021 Encounter Details Date Type Department Care Team Description 12/13/2021 Refill Adult Medicine [address] [address] Mini Breen PA Mychart Rx Refill Social [...] on filedocumented in this encounter Care Teams Drafter Assistant Relationship Specialty Start Date End Date Kyle Chavez MD [address] [place] [address] PCP - General Internal Medicine 11/11/19 11/21/22 [facility] Pcp [address] [place] [address] PCP - General Internal Medicine 11/22/22 11/24/22 Kyle Chavez MD [address] [place] [address] PCP - General Internal Medicine 11/25/22 Bravo Edwards MD, PHD [address] [place] [address] Specialist Neurosurgery 06/10/21 documented as of this encounter
--- OUTSIDE RECORDS SUMMARY | 2024-07-05 10:02 | XMS_ITS | Encounter Summary ---
Author Organization [facility] Address [address] [place] [address] Care Team Providers Care Senior Storage Engineer Name Role Phone Kyle Chavez MD Primary Care Provider [phone] Bravo Edwards MD, PHD Unavailable [facility], Pcp Primary Care [facility] Kyle Chavez MD Primary Care Provider [phone] Encounter Details Date Type Department Care Team Description 02/11/2022 Pt. Non Urgent Medical Question Adult Medicine [address] [address] Kyle Chavez MD [address] [place] [address] [phone] Social History Tobacco Use Types Packs/Day Years [...] encounter Miscellaneous Notes * Telephone Encounter - Bonny Zayas - 02/11/2022 11:19 AM EDTFrom: Perla Dixon To: Jose Chavez Sent: 02/11/2022 10:35 AM EDT Subject: Lyrica 50mg at bedtime Could you please call [facility] [address] [facility] please. Because a different doctor forthe prescription they want the doctor Scott or whoever is on to call them. I was actually due yesterday but they were closed and they are only open till 5:00 today and they are closed on weekends so please give them a call. Nash alvarez I'm going to switch pharmacies they really are not satisfying my needs! Thank you so much!... Perla Dixon documented in this encounter Plan of Treatment Not on file documented as of this encounter Visit Diagnoses Not on filedocumented in this encounter Care Teams Senior Storage Engineer Relationship Specialty Start Date End Date Kyle Chavez MD [address] [place] [address] PCP - General Internal Medicine 11/11/19 11/21/22 [place] [phone] PCP - General Internal Medicine 11/22/22 11/24/22 Kyle Chavez MD [address] [place] [address] PCP - General Internal Medicine 11/25/22 Bravo Edwards MD, PHD [address] [place] [address] Specialist Neurosurgery 06/10/21 documented as of this encounter
--- OUTSIDE RECORDS SUMMARY | 2024-07-05 10:02 | XMS_ITS | Encounter Summary ---
Author Organization [facility] Address [address] [place] [address] Care Team Providers Care Video Games Mechanic Name Role Phone Kyle Chavez MD Primary Care Provider [phone] Reason for Visit * Reason Onset Date Comments video call request 06/18/2024 Encounter Details Date Type Department Care Team ([facility] Contact Info) Description 06/18/2024 Telephone Adult Medicine [address] [phone] Kyle Chavez MD [address] [place] [phone] video call request Social History Tobacco Use Types Packs/Day [...] for your loved ones. For example, child care coordinator or elderly care for an older adult? [...] as of this encounter Progress Notes * Tea Dang MA - 06/20/2024 11:35 AM EST Pt seen 06/19/23 * Martha Perez - 06/18/2024 8:34 AM EST Patient call requires triage: Symptoms patient is presenting: patient is calling because she is wanting to know if barrie solo can do a video call instead of in house appointment. Patient is unable to come to appointment today due to ice build up in parking lot. Patient is extremely nervous that she is going to fall. Due toher neck fustion she just had done. Patient would like a call back regarding appointment today. How long has patient had these symptoms?: 06/18/2024 For ALL patients calling to schedule any appointment (routine, sick visit, follow up, consult, etc.) in the outpatient setting please ask the following questions: Do you have fever of higher than 101, sore throat with difficulty swallowing or severe shortness ofbreath? no If YES to any of these above symptoms, send a message to triage and do not book. Red dot. If no, an audio or video visit should be booked. Have you had close contact with someone with Coronavirus in the last 14 days? no Have you traveled abroad? no Have you traveled recently to another state outside of [place], [place], [place], [place], [place], [place], [place]? no o If yes, did you quarantine for 14 days or have a negative covid test? no If yes to any of the above, patient is not to be scheduled in office until after 14 day quarantine or negative covid test. If pain or injury related was it due to an accident at work or from a motor vehicle accident? If yes, date of accident/Injury: No If yes, gather 3rd alliance party insurance information Third Democrat Information: not applicable PCP: Kyle Chavez MD Payor: [facility] MEDICARE / Plan: [employer] ONE CARE / Product Type: *No Product type* / documented in this encounter Plan of Treatment Upcoming Encounters Date Type Department Care Team (Late st Contact Info) Description 07/18/2024 4:00 PM EDT Office Visit Adult Medicine [address] [phone] Abby Beach PA [address] [place] [address] 09/09/2024 2:30 PM EDT Office Visit Adult Medicine [address] [place] [address] Kyle Chavez MD [address] [place] [address] [phone] documented as of this encounter Visit Diagnoses Not on filedocumented in this encounter Additional Health Concerns Assessment Noted Time PHQ-9 Depression Total Score: 16 025 3:49 PM EST documented as of this encounter Care Teams Video Games Mechanic Relationship Specialty Start Date End Date Kyle Chavez MD [address] [place] [address] PCP - General Internal Medicine 06/18/24 documented as of this encounter
--- OUTSIDE RECORDS SUMMARY | 2024-07-05 10:02 | XMS_ITS | Encounter Summary ---
Author Organization [facility] Address [address] [place] [address] Care Team Providers Care Inspector Of Weights And Measures Name Role Phone Kyle Chavez MD Primary Care Provider [phone] Reason for Visit * Reason Onset Date Comments Medication Problem 07/04/2024 Encounter Details Date Type Department Care Team ([facility] st Contact Info) Description 07/04/2024 Telephone Adult Medicine [address] [phone] Kyle Chavez MD [address] [place] [address] Medication Problem Social History Tobacco Use Types Packs/Day Years [...] care for your loved ones. For example, attendant children's institution or elderly care for an older adult? [...] as of this encounter Progress Notes * Ray Cole RN - 07/04/2024 3:02 PM EST Please review and advised prescribing provider out of office * Merle Shine - 07/04/2024 1:40 PM EST Patient is aware that this is available otc however she states she doesn't have money to get it * Merle Shine - 07/04/2024 1:32 PM EST Medication Problem: What is the name of the medication patient is having a problem with?: clotrimazole (LOTRIMIN) 1 % cream What is the problem?: Patient states she had someone helping her at home after her surgery and thatperson accidentally took this ointment with her Who is calling about the problem? : The patient Is this a NEW medication?: yes How long has the patient been taking this medication? Since 06/19 Who prescribed this medication for the patient? Julienne RAMSEY Who is patients PCP?: Kyle Chavez MD Payor: [facility] MEDIC[facility] / Plan: [employer] ONE CARE / Product Type: *No Product type* / documented in this encounter Plan of Treatment Upcoming Encounters Date Type Department Care Team (Late st Contact Info) Description 07/18/2024 4:00 PM EDT Office Visit Adult Medicine [address] [phone] Abby Beach PA [address] [place] [address] 09/09/2024 2:30 PM EDT Office Visit Adult [address] [phone] Kyle Chavez MD [address] [place] [address] documented as of this encounter Visit Diagnoses Not on filedocumented in this encounter Additional Health Concerns Assessment Noted Time PHQ-9 Depression Total Score: 16 06/18/2 025 3:49 PM EST documented as of this encounter Care Teams Inspector Of Weights And Measures Relationship Specialty Start Date End Date Kyle Chavez MD [address] [place] [address] PCP - General Internal Medicine 06/18/24 documented as of this encounter
--- OUTSIDE RECORDS SUMMARY | 2024-07-05 10:02 | XMS_ITS | Encounter Summary ---
Author Organization [facility] [place] [address] Care Team Providers Care Liaison Officer Name Role Phone Kyle Chavez MD Primary Care Provider [phone] Reason for Visit * Reason Onset Date Comments Weight Loss 07/04/2024 Stress 07/04/2024 Alopecia 07/04/2024 Encounter Details Date Type Department Care Team (Late st Contact Info) Description 07/04/2024 Telephone Adult Medicine [address] [phone] Kyle Chavez MD [address] [place] [address] Weight Loss; Stress; Alopecia Social History Tobacco Use Types Packs/Day Years [...] for your loved ones. For example, child monitor or elderly care for an older adult? [...] Notes * Ray Cole RN - 07/04/2024 2:59 PM EST Called and spoke with pt. Pt c/o a lot of weight loss in the past year sts was 200 now 146lbs pt sts not trying but has no appetite sts can go a whole day without eating because so tried. No dizziness no lightheaded having normal bms and voiding. Ptsts has a lot of stress recent neck infusion stillhaving painand financial problems pt is going[facility] pt c/o hair falling out also. Given soonest appt with care team 07/18. Advised to call back sooner with any new sx * Merle Rl - 07/04/2024 1:39 PM EST Patient call requires triage: Symptoms patient is presenting: patient states she has lost a lot of weight and is losing her hair - states last year she was 200lbs and not she weighs 146lbs. Worreid something medically wrong How long has patient had these symptoms?: worsening over past few months For ALL patients calling to schedule any [...] traveled recently to another state outside of [place], [place], [place], [place], [place], [place], [place]? no o If yes, did you quarantine [...] of accident/Injury: No If yes, gather 3rd green party insurance information Third Libertarian Information: not applicable PCP: Kyle Chavez MD Payor: [facility] MEDICARE / Plan: [employer] ONE CARE / Product Type: *No Product type* / documented in this encounter Plan of Treatment Upcoming Encounters Date Type Department Care Team (Late st Contact Info) Description 07/18/2024 4:00 PM EDT Office Visit Adult [address] [phone] Abby Beach PA [address] [place] [address] 09/09/2024 2:30 PM EDT Office Visit Adult Medicine [address] [phone] Kyle Chavez MD [address] [place] [address] documented as of this encounter Visit Diagnoses Not on filedocumented in this encounter Additional Health Concerns Assessment Noted Time PHQ-9 Depression Total Score: 16 025 3:49 PM EST documented as of this encounter Care Teams Liaison Officer Relationship Specialty Start Date End Date Kyle Chavez MD [address] [place] [address] PCP - General Internal Medicine 06/18/24 documented as of this encounter
--- OUTSIDE RECORDS SUMMARY | 2024-07-05 10:02 | XMS_ITS | Encounter Summary ---
Author Organization [facility] Address [address] [place] [address] Care Team Providers Care Internal Medicine Physician Name Role Phone Kyle Chavez MD Primary Care Provider [phone] Bravo Edwards MD, PHD Unavailable [facility], Pcp Primary Care Provider Unavailabl e Kyle Chavez MD Primary Care Provider [phone] Encounter Details Date Type Department Care Team Description 12/22/2021 Pt. Non Urgent Medical Question [facility] Medical [facility] Neurosurgery [place] [address] [place] [address] Bravo Edwards MD, PHD Social [...] on filedocumented in this encounter Care Teams Internal Medicine Physician Relationship Specialty Start Date End Date Kyle Chavez MD [address] [place] [address] PCP - General Internal Medicine 11/11/19 11/21/22 [facility], Pcp [address] [place] [address] PCP - General Internal Medicine 11/22/22 11/24/22 Kyle Chavez MD [address] [place] [address] PCP - General Internal Medicine 11/25/22 Bravo Edwards MD, PHD [address] [place] [address] Specialist Neurosurgery 06/10/21 documented as of this encounter
--- OUTSIDE RECORDS SUMMARY | 2024-07-05 10:02 | XMS_ITS | Encounter Summary ---
Author Organization [facility] Address [address] [place] [address] Care Team Providers Care Cavalry Scout Name Role Phone Kyle Chavez MD Primary Care Provider [phone] Bravo Edwards MD, PHD Unavailable [facility], Pcp Primary Care Provider [facility] Kyle Chavez MD Primary Care Provider [phone] Encounter Details Date Type Department Care Team Description 10/06/2021 Pt. Non Urgent Medical Question Adult Medicine [address] [phone] Kyle Chavez MD [address] [place] [address] [phone] Social History Tobacco Use Types Packs/Day Years [...] Telephone Encounter - Damaris Nunez M.A. 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 Thank you. documented in this encounter Plan of Treatment Not on file documented as of this encounter Visit Diagnoses Not on filedocumented in this encounter Care Teams Cavalry Scout Relationship Specialty Start Date End Date Kyle Chavez MD [address] [place] [address] PCP - General Internal Medicine 11/11/19 11/21/22 [facility], Pcp [address] [place] [address] PCP - General Internal Medicine 11/22/22 11/24/22 Kyle Chavez MD [address] [place] [address] PCP - General Internal Medicine 11/25/22 Bravo Edwards MD, PHD [address] [place], [place] [phone] Specialist Neurosurgery 06/10/21 documented as of this encounter
--- OUTSIDE RECORDS SUMMARY | 2024-07-05 10:02 | XMS_ITS | Encounter Summary ---
Author Organization [facility] Address [address] [place] [address] Care Team Providers Care Bath Tester Name Role Phone Kyle Chavez MD Primary Care Provider [phone] Bravo Edwards MD, PHD Unavailable [facility], Pcp Primary Care Provider [facility] Kyle Washington MD Primary Care Provider Encounter Details Date Type Department Care Team Description 02/07/2022 Pt. Non Urgent Medical Question Adult Medicine [address] [address] Kyle Cahvez MD [address] [place] [address] [phone] Social History Tobacco Use Types Packs/Day Years [...] Telephone Encounter - Manasa Longo M.A. - 02/07/2022 11:10 AM EDTFrom: Perlapradip Dixon To: Jose Chavez Sent: 02/07/2022 11:07 AM EDT Subject: Sung Chavez I was at the kitchen table taking my Lyrica the phone rang I turned around to answer it andmy mother knocked the table with her walker which knocked her coffee over the last few days of my Lyrica and they melted this is the 150 mg ones. Is it possible to call [facility] and have them filled3 days early actually 2 days early? Mom hurtado s yet another UTI and it's very hard to deal with without my pain meds. If there are any questions please call me at [phone]. Thank you... ePrla Dixon documented in this encounter Plan of Treatment Not on file documented as of this encounter Visit Diagnoses Not on filedocumented in this encounter Care Teams Bath Tester Relationship Specialty Start Date End Date Kyle Chavez MD [address] [place] [address] PCP - General Internal Medicine 11/11/19 11/21/22 [place] [address] PCP - General Internal Medicine 11/22/22 11/24/22 Kyle Chavez MD [address] [place] [address] PCP - General Internal Medicine 11/25/22 Bravo Edwards MD, PHD [address] [place], [place] [phone] Specialist Neurosurgery 06/10/21 documented as of this encounter
--- OUTSIDE RECORDS SUMMARY | 2024-07-05 10:02 | XMS_ITS | Encounter Summary ---
Author Organization [facility] Address [address] [place] [address] Care Team Providers Care Access Tech Name Role Phone Kyle Chavez MD Primary Care Provider [phone] Bravo Edwards MD, PHD Unavailable [facility], Pcp Primary Care Provider [facility] Kyle Chavez MD Primary Care Provider [phone] Reason for Visit * Reason Comments E-prescribe Rx Request Encounter Details Date Type Department Care Team Description 05/03/2022 Refill Adult Medicine [address] [phone] Kyle Chavez MD [address] [place] [address] [phone] E-prescribe Rx Request Social History Tobacco Use [...] 1 Buprenorphine-Nalox 8-2 Mg Tab 28 14 [facility] [id number] [facility] (56[facility] 05/01 16.00 mgT [place] 04/18/2022 04/01/2022 1 Pregabalin 150 Mg Capsule 90 30 An Cru [id number] Wal (5640) 0/0 3.01 [place]ET [place] 04/14/2022 04/04/2022 1 Lorazepam 1 Mg Tablet 90 30 Ch L p [id number] Wal (5640) 0/3 3.00 [place] 04/05/2022 04/05/2022 1 Buprenorphine-Nalox 8-2 Mg Tab 28 14 [facility] [id number] Wal (5640) 0 16.00 mgT [place] 03/30/2022 03/28/2022 1 Pregabalin 150 Mg Capsule 60 30 An Cru [id number] Wal (5640) 0/5 2.01 [place]ET [place] 03/23/2022 03/08/2022 1 Buprenorphine-Nalox 8-2 Mg Tab 28 14 Mck [id number] Wal (5640) 05/01 16.00 mgT [place] 03/16/2022 03/16/2022 1 Lorazepam 1 Mg Tablet 90 30 Ch L p [id number] Wal (5640) 0/0 3.00 [place]ET [place] 03/11/2022 03/09/2022 1 Pregabalin 50 Mg Capsule 30 30 An Cru [id number] Wal (5640) 0/0 0.34 [place]ET [place] 03/08/2022 03/08/2022 1 Buprenorphine-Nalox 8-2 Mg Tab 28 14 [facility] 617141 Wal (5640) 0/1 16.00 mgT [place] 03/07/2022 02/07/2022 1 Pregabalin 150 Mg Capsule 60 30 An Cru [id number] Wal (5640) 0/4 2.01 LMET [place] 02/21/2022 02/08/2022 1 Buprenorphine-Nalox 8-2 Mg Tab 28 14 Ka Mck [id number] Wal (5471) 0/0 16.00 mgT [place] 02/14/2022 12/31/2021 1 Lorazepam 1 Mg Tablet 90 30 Ch L p [id number] Wal (5471) 0/2 3.00 LMET [place] 02/11/2022 02/09/2022 1 Pregabalin 50 Mg Capsule 30 30 Oy Ogu [id number] Wal (5471) 0/0 0.34 LMET [place] 02/08/2022 02/08/2022 1 Buprenorphine-Nalox 8-2 Mg Tab 28 14 Ka Mck [id number] Wal (5471) 0/1 16.00 mgT [place] 02/07/2022 02/07/2022 1 Pregabalin 150 Mg Capsule 60 30 An Cru [id number] Wal (5471) 0/5 2.01 LMET [place] documented in this encounter Plan of Treatment Not on file documented as of this encounter Visit Diagnoses Not on filedocumented in this encounter Care Teams Access Tech Relationship Specialty Start Date End Date Kyle Chavez MD [address] [place] [address] PCP - General Internal Medicine 11/11/19 11/21/22 [facility], Pcp [address] [place] [address] PCP - General Internal Medicine 11/22/22 11/24/22 Kyle Chavez MD [address] [place] [address] PCP - General Internal Medicine 11/25/22 Bravo Edwards MD, PHD [address] [place], [place] [phone] Specialist Neurosurgery 06/10/21 documented as of this encounter
--- OUTSIDE RECORDS SUMMARY | 2024-07-05 10:02 | XMS_ITS | Encounter Summary ---
Author Organization [facility] [place] [address] Care Team Providers Care Veneer Stacker Name Role Phone Kyle Chavez MD Primary Care Provider [phone] Encounter Details Date Type Department Care Team ([facility] st Contact Info) Description 06/17/2024 Telephone Adult Medicine [facility] [address] [place] [phone] Kyle Chavez MD [address] [place] [address] Social History Tobacco Use Types Packs/Day Years [...] for your loved ones. For example, children's ministry director or elderly care for an older adult? [...] as of this encounter Plan of Treatment Upcoming Encounters Date Type Department Care Team (Late st Contact Info) Description 07/18/2024 4:00 PM EDT Office Visit Adult Medicine [address] [phone] Abby Beach PA [address] [place] [address] 09/09/2024 2:30 PM EDT Office Visit Adult Medicine [address] [phone] Kyle Chavez MD [address] [place] [address] [phone] documented as of this encounter Visit Diagnoses Not on filedocumented in this encounter Care Teams Veneer Stacker Relationship Specialty Start Date End Date Kyle Chavez MD [address] [place] [address] PCP - General Internal Medicine 06/18/24 documented as of this encounter
--- OUTSIDE RECORDS SUMMARY | 2024-07-05 10:02 | XMS_ITS | Encounter Summary ---
Author Organization [facility] Address [address] [place] [address] Care Team Providers Care Veneer Cutter Name Role Phone Kyle Chavez MD Primary Care Provider [phone] Bravo Edwards MD, PHD Unavailable [facility], Pcp Primary Care Provider Unavailabl e Kyle Chavez MD Primary Care Provider [phone] Encounter Details Date Type Department Care Team Description 12/30/2021 Pt. Non Urgent Medical Question [facility] Medical [facility] Neurosurgery [place] [address] [place] [address] Bravo Edwards MD, PHD Social [...] filedocumented in this encounter Care Teams Veneer Cutter Relationship Specialty Start Date End Date Kyle Chavez MD [address] [place] [address] PCP - General Internal Medicine 11/11/19 11/21/22 [facility], Pcp [address] [place] [address] PCP - General Internal Medicine 11/22/22 11/24/22 Kyle Chavez MD [address] [place] [address] PCP - General Internal Medicine 11/25/22 Bravo Edwards MD, PHD [address] [place] [address] Specialist Neurosurgery 06/10/21 documented as of this encounter
--- OUTSIDE RECORDS SUMMARY | 2024-07-05 10:02 | XMS_ITS | Encounter Summary ---
Author Organization [facility] Address [address] [place] [address] Care Team Providers Care Occupational Health Physiotherapist Name Role Phone Kyle Chavez MD Primary Care Provider [phone] Bravo Edwards MD, PHD Unavailable [facility], Pcp Primary Care Provider [facility] Kyle Washington MD Primary Care Provider [phone] Encounter Details Date Type Department Care Team Description 03/15/2022 Pt. Non Urgent Medical Question Adult Medicine [address] [address] Kyle Chavez MD [address] [place] [address] [phone] Social History Tobacco Use Types Packs/Day Years [...] Telephone Encounter - Nancy Chavez L.P.N. - 03/15/2022 11:08 AM ESTFrom: Perla Dixon To: Jose Chavez Sent: 03/15/2022 9:18 AM EST Subject: Med And Dr Chavez the [facility] as close and it switched over to [employer] [employer] on [facility] in [place]. My problem is when they transferred all my information I had two refills left on my lorazepam but now they have told me that I need a new prescription to have that filled.I reached out to my provider for that medicati on and it's going to take 48 to 72 hours for her to get back to me. Dr Chavez I've been completely out since Monday and it helps my pain immensely and I'mhaving a lot of panic and anxiety attacks I am actually going to have to go in the care home when my mom goes in the fci! All I'm asking for is six tablets of lorazepam till I can get [facility]. I beg of you could you please fill this one time song rgency prescription for me? I was going to go to urgent care but you need to stay in your car and wait two to three hours till they call you and I don't have a car to sit in. Please help me this one time. I don't even know why they stop giving it to me years ago I was stunned. I hope this message goes directly to you and not your nurses. I hope you're well thank you Dr Chavez... Perla Dixon documented in this encounter Plan of Treatment Not on file documented as of this encounter Visit Diagnoses Not on filedocumented in this encounter Care Teams Occupational Health Physiotherapist Relationship Specialty Start Date End Date Kyle Chavez MD [address] [place] [address] PCP - General Internal Medicine 11/11/19 11/21/22 [facility], Pcp [address] [place] [address] PCP - General Internal Medicine 11/22/22 11/24/22 Kyle Chavez MD [address] [place] [address] PCP - General Internal Medicine 11/25/22 Bravo Edwards MD, PHD [address] [place], [place] [phone] Specialist Neurosurgery 06/10/21 documented as of this encounter
--- OUTSIDE RECORDS SUMMARY | 2024-07-05 10:03 | XMS_ITS | Encounter Summary ---
Author Organization [facility] Address [address] [place] [address] Care Team Providers Care Steel Placer Name Role Phone Kyle Chavez MD Primary Care Provider [phone] Bravo Edwards MD, PHD Unavailable [facility], Pcp Primary Care Provider [facility] Kyle Chavez MD Primary Care Provider [phone] Reason for Visit * Reason Onset Date Comments Form 10/04/2021 Encounter Details Date Type Department Care Team Description 10/04/2021 Pt. Non Urgent Medical Question Adult Medicine [address] [address] Kyle Chavez MD [address] [place] [address] [phone] Social History Tobacco Use Types Packs/Day Years [...] Telephone Encounter - Manasa Longo M.A. - 10/04/2021 8:17 AM EDTFrom: Perla Dixon To: Jose Chavez Sent: 10/04/2021 8:03 AM EDT Subject: Paper work I had a dropped off some paperwork for Dr Chavez to fill out. I was wondering if it is ready to be picked up. I need to return it within 2 to 3 days. Please let me know. documented in this encounter Plan of Treatment Not on file documented as of this encounter Visit Diagnoses Not on filedocumented in this encounter Care Teams Steel Placer Relationship Specialty Start Date End Date Kyle Chavez MD [address] [place] [address] PCP - General Internal Medicine 11/11/19 11/21/22 [facility], Pcp [address] [place], [place] [phone] PCP - General Internal Medicine 11/22/22 11/24/22 Kyle Chavez MD [address] [place] [address] PCP - General Internal Medicine 11/25/22 Bravo Edwards MD, PHD [address] [place] [address] Specialist Neurosurgery 06/10/21 documented as of this encounter
--- OUTSIDE RECORDS SUMMARY | 2024-07-05 10:03 | XMS_ITS | Encounter Summary ---
Author Organization [facility] Address [address] [place] [address] Care Team Providers Care Taproom Attendant Name Role Phone Jean-Paul Carranza MD Primary Care Provider Unavail Kyle Camejo MD Primary Care Provider [phone] Bravo Edwards MD, PHD Unavailable [facility], Pcp Primary Care Provider UnavailKyle Putnam MD Primary Care Provider [phone] Reason for Visit * Reason Onset Date Comments Asbestos Pipe Supervisor Feedback 08/24/2018 Neurosurgery Encounter Details Date Type Department Care Team Description 08/24/2018 Telephone Adult Medicine [address] [address] Martha Hopkins PA-C Asbestos Pipe Supervisor Feedback (Neurosurgery) Social History Tobacco Use Types Packs/Day Years [...] encounter Miscellaneous Notes * Telephone Encounter - Kassie Jose - 08/24/2018 9:02 AM EDT ARTURO Thomas Appointment booked on 09/07/[address] Anne, Neurosurgery. I Called patient and per patient shewants to hold off on this referral and requested for appointment to be cancelled. She will be calling you to discuss. Thank you, Kassie Devulcanizer Loader documented in this encounter Plan of Treatment Not on file documented as of this encounter Visit Diagnoses Not on filedocumented in this encounter Care Teams Taproom Attendant Relationship Specialty Start Date End Date Jean-Paul Carranza MD PCP - General Internal Medicine 06/04/18 11/10/19 Kyle Chavez MD [address] [place] [address] PCP - General Internal Medicine 11/11/19 11/21/22 [place] [id number] PCP - General Internal Medicine 11/22/22 11/24/22 Kyle Chavez MD [address] [place] [address] PCP - General Internal Medicine 11/25/22 Bravo Edwards MD, PHD [address] [place], [place] [id number] Specialist Neurosurgery 06/10/21 documented as of this encounter
--- OUTSIDE RECORDS SUMMARY | 2024-07-05 10:03 | XMS_ITS | Encounter Summary ---
Author Organization [facility] Address [address] [place] [address] Care Team Providers Care Rigging Loft Repairer Name Role Phone Jean-Paul Carranza MD Primary Care Provider Unavail Kyle Camejo MD Primary Care Provider [phone] Bravo Edwards MD, PHD Unavailable [facility], [facility] Primary Care Provider UnavailKyle Putnam MD Primary Care Provider [phone] Encounter Details Date Type Department Care Team Description 09/25/2018 Release of Information Medical Records [address] [place] [id number] Abstract, Provider Social History Tobacco Use Types [...] on filedocumented in this encounter Care Teams Rigging Loft Repairer Relationship Specialty Start Date End Date Jean-Paul Carranza MD PCP - General Internal Medicine 06/04/18 11/10/19 Kyle Chavez MD [address] [place] [address] PCP - General Internal Medicine 11/11/19 11/21/22 [facility], Pcp [address] [place] [address] PCP - General Internal Medicine 11/22/22 11/24/22 Kyle Chavez MD [address] [place] [address] PCP - General Internal Medicine 11/25/22 Bravo Edwards MD, PHD [address] [place] [address] Specialist Neurosurgery 06/10/21 documented as of this encounter
--- OUTSIDE RECORDS SUMMARY | 2024-07-05 10:03 | XMS_ITS | Encounter Summary ---
Author Organization [facility] Address [address] [place] [address] Care Team Providers Care Baseball Inspector And Repairer Name Role Phone Lucia Duff MD Primary Care Provider Amy Maldonado MD Primary Care Provider Unavail able Jean-Paul Carranza MD Primary Care Provider Unavail able Kyle Chavez MD Primary Care Provider [phone] Bravo Edwards MD, PHD Unavailable [facility], Pcp Primary Care Provider Unavailabl Kyle Washington MD Primary Care Provider [phone] Encounter Details Date Type Department Care Team Description 07/20/2016 Orders Only Adult Medicine [address] [address] Lucia Duff MD Controlled type 2 diabetes [...] URINE 60 mg/dL 12/17/2016 2:42 PM EDT [facility] MICROALBUMIN, RANDOM 2.9 0.0 - 29.0 mg/L 12/17/2016 2:42 PM [facility] MICROALB/CRE RATIO RANDOM 4.8 <30.0 mg/g 12/17/2016 2:42 PM T [facility] 12/17/2016 1:59 PM EDT 12/17/2016 1:59 PM EDT Lucia Duff MD LAB Performing Organization Address City/[facility] Co de Phone Number [address] * (ABNORMAL) LIPID PROFILE (12/17/2016 1:59 PM EDT) Cholesterol 232(H) 0 - 200 mg/dL 12/17/2016 2:55 PM T [facility] TRIGLYCERIDES 613(H) 0 - 150 mg/dL 12/17/2016 3:01 PM T [facility] Comment: If Triglycerid e value is =>500, LDL is not meaningful HDL CHOLESTEROL 24(L) >40 mg/dL 7 2:55 PM [facility] TC-HDLC RATIO 10(H) 0.0 - 4.4 mg/dL 12/17/2016 2:55 PM T [facility] 12/17/2016 1:59 PM EDT 12/17/2016 1:59 PM EDT Lucia Duff MD LAB Performing Organization Address [facility] Co de Phone Number [address] * (ABNORMAL) HEMOGLOBIN A1C (12/17/2016 1:59 PM EDT) Glycosylated Hemoglobin A1C 10.7(H) 4.0 - 6.0 % 12/17/2016 2:39 PM T [facility] Comment: HbA1C VALUES MAY NOT ACCURATELY REFLECT MEAN BLOOD GLUCOSE IN PATIENTS WITH HEMOGLOBIN VARIANTS SUCH HbF, HbS. 12/17/2016 1:59 PM EDT 12/17/2016 1:59 PM EDT Lucia Duff MD LAB [facility] [address] [facility] * (ABNORMAL) COMPREHENSIVE METABOLIC PANEL (12/17/2016 1:59 PM EDT) GLUCOSE 360(H) 70 - 100 mg/dL 12/17/2016 2:55 PM T [facility] Comment: Reference range applicable to fasting specimens only Based on recommendations from the ADA and AACE, the fasting glucose reference range has been changed to 70-100 mg/dL. ??This change is effective September 14, 2009 BUN 9 5 - 25 mg/dL 12/17/2016 2:55 PM [facility] CREAT 0.6(L) 0.7 - 1.5 mg/dL 12/17/2016 2:55 PM [facility] BUN/CREAT RATIO 15.0 6.0 - 20.0 12/17/2016 2:55 PM [facility] GFR > 60 >60 12/17/2016 3:01 PM [facility] Comment: If patient is -Haitian, multiply result by 1.21 Chronic Kidney Disease: < 60 ml/min/1.73 square meters Kidney Failure: < 15 ml/min/1.73 square meters Sodium 137 133 - 145 mEq/L 12/17/2016 2:55 PM [facility] Potassium 4.4 3.5 - 5.5 mEq/L 12/17/2016 2:55 PM [facility] Chloride 95(L) 96 - 108 mEq/L 12/17/2016 3:01 PM [facility] CO2 28.6 21.0 - 32.0 mEq/L 12/17/2016 2:55 PM [facility] CALCIUM 10.1 8.5 - 10.5 mg/dL 12/17/2016 2:55 PM EDT [facility] TOTAL PROTEIN 7.2 6.0 - 8.3 gm/dL 12/17/2016 2:55 PM EDT [facility] Albumin 4.2 3.2 - 5.6 gm/dL 12/17/2016 2:55 PM EDT [facility] GLOBULIN 3.0 1.9 - 4.4 gm/dL 12/17/2016 2:55 PM EDT [facility] A/G RATIO 1.4 1.1 - 2.3 12/17/2016 2:55 PM EDT [facility] BILI,TOTAL 0.3 0.0 - 1.2 mg/dL 12/17/2016 2:55 PM EDT [facility] AST (SGOT) 16 10 - 42 U/L 12/17/2016 2:55 PM EDT [facility] ALT( SGPT) 20 10 - 60 U/L 12/17/2016 2:55 PM EDT [facility] ALK PHOS 116 42 - 121 U/L 12/17/2016 2:55 PM EDT [facility] 12/17/2016 1:59 PM EDT 12/17/2016 1:59 PM EDT Lucia Duff MD LAB Performing Organization Address City/State/[facility] Co de Phone Number [facility] [address] [place] [address] documented in this encounter Visit Diagnoses Diagnosis Controlled type 2 diabetes mellitus with diabetic neuropathy, without long-term current use of insulin (HCC) Hyperlipidemia LDL goal <100 Other and unspecified hyperlipidemia documented in this encounter Care Teams Baseball Inspector And Repairer Relationship Specialty Start Date End Date Lucia Duff MD PCP - General Internal Medicine 02/12/15 01/31/18 Amy Hernandez MD PCP - General Internal Medicine 02/01/18 06/03/18 Jean-Paul Carranza MD PCP - General Internal Medicine 06/04/18 11/10/19 Kyle Chavez MD [address] [place] [address] PCP - General Internal Medicine 11/11/19 11/21/22 [facility], [address] [address] PCP - General Internal Medicine 11/22/22 11/24/22 Kyle Chavez MD [address] [place] [address] PCP - General Internal Medicine 11/25/22 Bravo Edwards MD, PHD [address] [place] [address] Specialist Neurosurgery 06/10/21 documented as of this encounter
--- OUTSIDE RECORDS SUMMARY | 2024-07-05 10:03 | XMS_ITS | Encounter Summary ---
Author Organization [facility] Address [address] [place] [address] Care Team Providers Care Aircraft Restorer Name Role Phone Kyle Chavez MD Primary Care Provider [phone] Bravo Edwards MD, PHD Unavailable [facility], Pcp Primary Care Provider [facility] Kyle Chavez MD Primary Care Provider [phone] Reason for Visit * Reason Onset Date Comments Neck Pain 07/08/2021 Shoulder Pain 07/08/2021 Encounter Details Date Type Department Care Team Description 07/08/2021 Telephone [facility] Medical [facility] Neurosurgery [place] [address] [address] Walker Khan PA-C [address] [address] Neck Pain; Shoulder Pain Social [...] on filedocumented in this encounter Care Teams Aircraft Restorer Relationship Specialty Start Date End Date Kyle Chavez MD [address] [place] [address] PCP - General Internal Medicine 11/11/19 11/21/22 [facility], Pcp [address] [place] [address] PCP - General Internal Medicine 11/22/22 11/24/22 Kyle Chavez MD [address] [place] [address] PCP - General Internal Medicine 11/25/22 Bravo Edwards MD, PHD [address] [place] [address] Specialist Neurosurgery 06/10/21 documented as of this encounter
--- OUTSIDE RECORDS SUMMARY | 2024-07-05 10:03 | XMS_ITS | Encounter Summary ---
Author Organization [facility] Address [address] [place] [address] Care Team Providers Care Rn Endocrinology Name Role Phone Lucia Duff MD Primary Care Provider Amy Maldonado MD Primary Care Provider Unavail able Jean-Paul Carranza MD Primary Care Provider Unavail able Kyle Chavez MD Primary Care Provider [phone] Bravo Edwards MD, PHD Unavailable [facility], Pcp Primary Care Provider Unavailabl Kyle Washington MD Primary Care Provider [phone] Encounter Details Date Type Department Care Team Description 10/25/2017 Meat Puller Report Medical Records [address] [place] [address] Ramon Uribe MD [address] [place] [address] [address] [facility] [place] [address] Social History Tobacco Use Types Packs/Day Years [...] on filedocumented in this encounter Care Teams Rn Endocrinology Relationship Specialty Start Date End Date Lucia Duff MD PCP - General Internal Medicine 02/12/15 01/31/18 Amy Hernandez MD PCP - General Internal Medicine 02/01/18 06/03/18 Jean-Paul Carranza MD PCP - General Internal Medicine 06/04/18 11/10/19 Kyle Chavez MD [address] [place] [address] PCP - General Internal Medicine 11/11/19 11/21/22 [facility], Pcp [address] [place], [place] [phone] PCP - General Internal Medicine 11/22/22 11/24/22 Kyle Chavez MD [address] [place] [address] PCP - General Internal Medicine 11/25/22 Bravo Edwards MD, PHD [address] [place] [address] Specialist Neurosurgery 06/10/21 documented as of this encounter
--- OUTSIDE RECORDS SUMMARY | 2024-07-05 10:03 | XMS_ITS | Encounter Summary ---
Author Organization [facility] Address [address] [place] [address] Care Team Providers Care Shipping Support Clerk Name Role Phone Jean-Paul Carranza MD Primary Care Provider Unavail Kyle Camejo MD Primary Care Provider [phone] Bravo Edwards MD, PHD Unavailable [facility], Pcp Primary Care Provider UnavailKyle Putnam MD Primary Care Provider [phone] Encounter Details Date Type Department Care Team Description 08/21/2018 [facility] Medical Records [address] [place] [address] Abstract, Provider Social History Tobacco Use Types [...] on filedocumented in this encounter Care Teams Shipping Support Clerk Relationship Specialty Start Date End Date Jean-Paul Carranza MD PCP - General Internal Medicine 06/04/18 11/10/19 Kyle Chavez MD [address] [place] [address] PCP - General Internal Medicine 11/11/19 11/21/22 [facility], Pcp [address] [place] [address] PCP - General Internal Medicine 11/22/22 11/24/22 Kyle Chavez MD [address] [place] [address] PCP - General Internal Medicine 11/25/22 Bravo Edwards MD, PHD [address] [place] [address] Specialist Neurosurgery 06/10/21 documented as of this encounter
--- OUTSIDE RECORDS SUMMARY | 2024-07-05 10:03 | XMS_ITS | Encounter Summary ---
Author Organization [facility] Address [address] [place] [address] Care Team Providers Care Charge Out Clerk Name Role Phone Jean-Paul Carranza MD Primary Care Provider Unavail Kyle Camejo MD Primary Care Provider [phone] Bravo Edwards MD, PHD Unavailable [facility], Pcp Primary Care Provider UnavailKyle Putnam MD Primary Care Provider [phone] Reason for Visit * Reason Onset Date Comments refill request 08/28/2018 Encounter Details Date Type Department Care Team Description 08/28/2018 Refill Adult Medicine [address] [address] Jean-Paul Carranza MD refill request Social History [...] Miscellaneous Notes * Telephone Encounter - Bonny Westfall - 08/28/2018 8:58 AM EDT Patient would like script to be: E-PRESCRIBED/FAXED TO PHARMACY ?? WHEN WAS THE PATIENT'S LAST APPOINTMENT IN ADULT MEDICINE? 08/14/18 ?? WHEN WAS THE LAST TIME THE PATIENT SAW THEIR PCP? Same as above ?? Does patient have an upcoming appointment? Yes 10/17/18 ?? (THE MEDICATION REQUESTED IS ON THE MED LIST ABOVE) All of the medications requested were on the CURRENT MEDS list ?? Did you check the Pharmacy information above?: YES ?? Patient wants: 30 -day supply ?? Is this a mail order prescription request ? NO ?? If the refill is from a FAXED refill request what is the RX # listed on the fax? N/A ?? Patients current insurance carrier is: [facility] / Plan: [facility] / Product Type: HMO [id number] ? documented in this encounter Plan of Treatment Not on file documented as of this encounter Visit Diagnoses Not on filedocumented in this encounter Care Teams Charge Out Clerk Relationship Specialty Start Date End Date Jean-Paul Carranza MD PCP - General Internal Medicine 06/04/18 11/10/19 Kyle Chavez MD [address] [place] [address] PCP - General Internal Medicine 11/11/19 11/21/22 [place] [id number] PCP - General Internal Medicine 11/22/22 11/24/22 Kyle Cahvez MD [address] [place], [place] [phone] PCP - General Internal Medicine 11/25/22 Bravo Edwards MD, PHD [address] [place], [place] [phone] Specialist Neurosurgery 06/10/21 documented as of this encounter
--- OUTSIDE RECORDS SUMMARY | 2024-07-05 10:03 | XMS_ITS | Encounter Summary ---
Author Organization [facility] Address [address] [place] [address] Care Team Providers Care Distribution Sales Representative Name Role Phone Lucia Duff MD Primary Care Provider Amy Maldonado MD Primary Care Provider Unavail able Jean-Paul Carranza MD Primary Care Provider Unavail able Kyle Chavez MD Primary Care Provider [phone] Bravo Edwards MD, PHD Unavailable [facility], [facility]cp Primary Care Provider Unavailabl Kyle Washington MD Primary Care Provider [phone] Encounter Details Date Type Department Care Team Description 04/13/2016 Orders Only Radiology - [address] [address] Lucia Duff MD Social History Tobacco Use Types Packs/Day [...] on filedocumented in this encounter Care Teams Distribution Sales Representative Relationship Specialty Start Date End Date Lucia Duff MD PCP - General Internal Medicine 02/12/15 01/31/18 Amy Hernandez MD PCP - General Internal Medicine 02/01/18 06/03/18 Jean-Paul Carranza MD PCP - General Internal Medicine 06/04/18 11/10/19 Kyle Chavez MD [address] [place] [address] PCP - General Internal Medicine 11/11/19 11/21/22 [facility]cp [address] [place] [address] PCP - General Internal Medicine 11/22/22 11/24/22 Kyle Chavez MD [address] [place] [address] PCP - General Internal Medicine 11/25/22 Bravo Edwards MD, PHD [address] [place] [address] Specialist Neurosurgery 06/10/21 documented as of this encounter
--- OUTSIDE RECORDS SUMMARY | 2024-07-05 10:03 | XMS_ITS | Encounter Summary ---
Author Organization [facility] Address [address] [place] [address] Care Team Providers Care Enterprise Project Manager Name Role Phone Lucia Duff MD Primary Care Provider Amy Maldonado MD Primary Care Provider Unavail able Jean-Paul Carranza MD Primary Care Provider Unavail able Kyle Chavez MD Primary Care Provider [phone] Bravo Edwards MD, PHD Unavailable [facility], Pcp Primary Care Provider Unavailabl Kyle Washington MD Primary Care Provider [phone] Reason for Visit * Reason Onset Date Comments Provider Call Back 10/31/2017 Encounter Details Date Type Department Care Team Description 10/31/2017 Telephone Gastroenterology - [address] [address] Caty Vo MD Provider Call Back Social History Tobacco [...] encounter Miscellaneous Notes * Telephone Encounter - Caty Vo MD - 11/02/2017 7:43 AM EDT Yes. For the three days before the standard split prep she is to take one 17 gm dose of miralax (a pre-prep) Prescription for Miralax sent to pharmacy. * Telephone Encounter - Mamie Fleming - 10/31/2017 2:48 PM EDT Patient has been scheduled for colonoscopy with Dr Vo on 12/12/17. Please clarify the prep instructions you gave patient. (notes say pre-prep with miralax for three days). documented in this encounter Plan of Treatment Not on file documented as of this encounter Visit Diagnoses Not on filedocumented in this encounter Care Teams Enterprise Project Manager Relationship Specialty Start Date End Date Lucia Duff MD PCP - General Internal Medicine 02/12/15 01/31/18 Amy Hernandez MD PCP - General Internal Medicine 02/01/18 06/03/18 Jean-Paul Carranza MD PCP - General Internal Medicine 06/04/18 11/10/19 Kyle Chavez MD [address] [place] [address] PCP - General Internal Medicine 11/11/19 11/21/22 [facility] Pcp [address] [place], [place] [phone] PCP - General Internal Medicine 11/22/22 11/24/22 Kyle Chavez MD [address] [place] [address] PCP - General Internal Medicine 11/25/22 Bravo Edwards MD, PHD [address] [place] [address] Specialist Neurosurgery 06/10/21 documented as of this encounter
--- OUTSIDE RECORDS SUMMARY | 2024-07-05 10:03 | XMS_ITS | Encounter Summary ---
Author Organization [facility] Address [address] [place] [address] Care Team Providers Care Program Aide Name Role Phone Kyle Chavez MD Primary Care Provider [phone] Bravo Edwards MD, PHD Unavailable [facility], Pcp Primary Care Provider [facility] Kyle Chavez MD Primary Care Provider Encounter Details Date Type Department Care Team Description 07/05/2021 Pt. Non Urgent Medical Question Adult Medicine [address] [phone] Kyle Chavez MD [address] [place] [phone] Social History Tobacco Use Types Packs/Day Years [...] Telephone Encounter - Damaris Nunez M.A. - 07/05/2021 2:29 PM ESTFrom: Perla Dixon To: Jose Scott Sent: 07/05/2021 2:10 PM EST Subject: Neck pain I called my neurosurgeon. I have to go for a CT scan and then I will go see Dr Edwards. Thank you for your time! documented in this encounter Plan of Treatment Not on file documented as of this encounter Visit Diagnoses Not on filedocumented in this encounter Care Teams Program Aide Relationship Specialty Start Date End Date Kyle Chavez MD [address] [place] [address] PCP - General Internal Medicine 11/11/19 11/21/22 Pending [facility], Pcp [address] [place] [address] PCP - General Internal Medicine 11/22/22 11/24/22 Kyle Chavez MD [address] [place] [address] PCP - General Internal Medicine 11/25/22 Bravo Edwards MD, PHD [address] [place] [address] Specialist Neurosurgery 06/10/21 documented as of this encounter
--- OUTSIDE RECORDS SUMMARY | 2024-07-05 10:03 | XMS_ITS | Encounter Summary ---
Author Organization [facility] Address [address] [place] [address] Care Team Providers Care Director Drug Safety Name Role Phone Lucia Duff MD Primary Care Provider Amy Maldonado MD Primary Care Provider Unavail able Jean-Paul Carranza MD Primary Care Provider Unavail able Kyle Chavez MD Primary Care Provider [phone] Bravo Edwards MD, PHD Unavailable [facility], Pcp Primary Care Provider Unavailabl Kyle Washington MD Primary Care Provider [phone] Reason for Visit * Reason Onset Date Comments Error 10/09/2017 Encounter Details Date Type Department Care Team Description 10/09/2017 Telephone Adult [address] [address] Lucia Duff MD Error Social History Tobacco Use Types Packs/Day Years [...] * Telephone Encounter - Sonal Murray - 10/09/2017 12:07 PM EDT Error documented in this encounter Plan of Treatment Not on file documented as of this encounter Visit Diagnoses Not on filedocumented in this encounter Care Teams Director Drug Safety Relationship Specialty Start Date End Date Lucia Duff MD PCP - General Internal Medicine 02/12/15 01/31/18 Amy Hernandez MD PCP - General Internal Medicine 02/01/18 06/03/18 Jean-Paul Carranza MD PCP - General Internal Medicine 06/04/18 11/10/19 Kyle Chavez MD [address] [place] [address] PCP - General Internal Medicine 11/11/19 11/21/[address] [address] PCP - General Internal Medicine 11/22/22 11/24/22 Kyle Chavez MD [address] [place] [address] PCP - General Internal Medicine 11/25/22 Bravo Edwards MD, PHD [address] [place] [address] Specialist Neurosurgery 06/10/21 documented as of this encounter
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
--- OUTSIDE RECORDS SUMMARY | 2024-07-05 10:03 | XMS_ITS | Encounter Summary ---
Author Organization [facility] Address [address] [place] [address] Care Team Providers Care Fisher Weir Name Role Phone Lucia Duff MD Primary Care Provider Amy Maldonado MD Primary Care Provider Unavail able Jean-Paul Carranza MD Primary Care Provider Unavail able Kyle Chavez MD Primary Care Provider [phone] Bravo Edwards MD, PHD [facility] Primary Care Provider Unavailabl Kyle Washington MD Primary Care Provider [phone] Encounter Details Date Type Department Care Team Description 10/05/2017 Plant Operator Report Medical Records [address] [place] [id number] Abstract, Provider Social History Tobacco Use Types [...] on filedocumented in this encounter Care Teams Fisher Weir Relationship Specialty Start Date End Date Lucia Duff MD PCP - General Internal Medicine 02/12/15 01/31/18 Amy Hernandez MD PCP - General Internal Medicine 02/01/18 06/03/18 Jean-Paul Carranza MD PCP - General Internal Medicine 06/04/18 11/10/19 Kyle Chavez MD [address] [place] [address] PCP - General Internal Medicine 11/11/19 11/21/22 [facility], Pcp [address] [place] [address] PCP - General Internal Medicine 11/22/22 11/24/22 Kyle Chavez MD [address] [place] [address] PCP - General Internal Medicine 11/25/22 Bravo Edwards MD, PHD [address] [place] [address] Specialist Neurosurgery 06/10/21 documented as of this encounter
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
--- OUTSIDE RECORDS SUMMARY | 2024-07-05 10:03 | XMS_ITS | Encounter Summary ---
Author Organization [facility] [employer] [facility] Address [address] [place] [address] Care Team Providers Care Estate Planner Name Role Phone Kyle Chavez MD Primary Care Provider Bravo Edwards MD, PHD [facility] Pcp Primary Care Provider [facility] Kyle Chavez MD Primary Care Provider [phone] Encounter Details Date Type Department Care Team Description 07/22/2021 Orders Only Medical Records [address] [place] [address] Abstract, Provider Chronic right-sided lumbar radiculopathy Social History Tobacco Use Types Packs/Day Years [...] Procedure Name Priority Date/Time Associated Diagnosis Comments CAT SCAN OF LUMBAR SPINE NO CONTRAST Routine 07/21/2021 Chronic right-sided lumbar radiculopathy documented in this encounter Results * CAT SCAN OF LUMBAR SPINE NO CONTRAST (07/21/2021) Bravo Edwards MD, PHD [facility] documented in this encounter Visit Diagnoses Diagnosis Chronic right-sided lumbar radiculopathy documented in this encounter Care Teams Estate Planner Relationship Specialty Start Date End Date Kyle Chavez MD [address] [place] [address] PCP - General Internal Medicine 11/11/19 11/21/22 [facility], Pcp [address] [place] [address] PCP - General Internal Medicine 11/22/22 11/24/22 Kyle Chavez MD [address] [place] [address] PCP - General Internal Medicine 11/25/22 Bravo Edwards MD, PHD [address] [place] [address] Specialist Neurosurgery 06/10/21 documented as of this encounter
--- OUTSIDE RECORDS SUMMARY | 2024-07-05 10:03 | XMS_ITS | Encounter Summary ---
Author Organization [facility] Address [address] [place] [address] Care Team Providers Care Parts Sales Advisor Name Role Phone Lucia Duff MD Primary Care Provider Amy Maldonado MD Primary Care Provider Unavail able Jean-Paul Carranza MD Primary Care Provider Unavail able Kyle Chavez MD Primary Care Provider [phone] Bravo Edwards MD, PHD Unavailable Unava [facility], Pcp Primary Care Provider Unavailabl Kyle Washington MD Primary Care Provider [phone] Reason for Visit * Reason Onset Date Comments medication problems 03/31/2017 Encounter Details Date Type Department Care Team Description 03/31/2017 Telephone Adult [address] [address] Lucia Duff MD medication problems Social History Tobacco Use [...] encounter Miscellaneous Notes * Telephone Encounter - Jackelyn Ramirez M.A. - 03/31/2017 2:12 PM EST Called patient and left vm message to call office back Telephone Information: Mobile Not on file. * Telephone Encounter - Lucia Duff - 03/31/2017 1:42 PM EST She can hold off simvastatin while taking diflucan * Telephone Encounter - Anisa Rubio M.A. - 03/31/2017 1:15 PM EST Please review and advise * Telephone Encounter - Darya Sow - 03/31/2017 10:08 AM EST Who is calling? A pharmacist: Pharmacy: [facility] Pharmacist Name: Pharmacy Name of the medication simvastatin (ZOCOR) 20 MG tablet, fluconazole (DIFLUCAN) 150 MG tablet What is the specific problem or interaction? Drug-Drug Interaction; Azole antifungals can inhibit the metabolism of statins metabolized by CY, increasing the risk of myopathy/rhabdomyolysis. Note: Simvastatin and Lovastatin are contraindicated with posaconazole, ketoconazole, and itraconazole If the patient is having a problem with taking the med - how long has the problem been going on? N/A documented in this encounter Plan of Treatment Not on file documented as of this encounter Visit Diagnoses Not on filedocumented in this encounter Care Teams Parts Sales Advisor Relationship Specialty Start Date End Date Lucia Duff MD PCP - General Internal Medicine 02/12/15 01/31/18 Amy Hernandez MD PCP - General Internal Medicine 02/01/18 06/03/18 Jean-Paul Carranza MD PCP - General Internal Medicine 06/04/18 11/10/19 Kyle Chavez MD [address] [place] [address] PCP - General Internal Medicine 11/11/19 11/21/22 [facility], Pcp [address] [place] [address] PCP - General Internal Medicine 11/22/22 11/24/22 Kyle Chavez MD [address] [place] [address] PCP - General Internal Medicine 11/25/22 Bravo Edwards MD, PHD [address] [place] [address] Specialist Neurosurgery 06/10/21 documented as of this encounter
--- OUTSIDE RECORDS SUMMARY | 2024-07-05 10:03 | XMS_ITS | Encounter Summary ---
Author Organization [facility] Address [address] [place] [address] Care Team Providers Care Medical Secretary Teacher Name Role Phone Jean-Paul Carranza MD Primary Care Provider Unavail Kyle Camejo MD Primary Care Provider [phone] Bravo Edwards MD, PHD Unavailable [facility], Pcp Primary Care Provider UnavailKyle Putnam MD Primary Care Provider [phone] Reason for Visit * Reason Onset Date Comments Faxed Order 09/05/2018 Encounter Details Date Type Department Care Team Description 09/05/2018 Telephone Adult Medicine [address] [address] Jean-Paul Carranza MD Faxed Order Social History Tobacco Use Types Packs/Day Years [...] encounter Miscellaneous Notes * Telephone Encounter - Citlali uCevas - 09/05/2018 1:44 PM EDT Faxed orders requesting pt be tested for cannabis levels documented in this encounter Plan of Treatment Not on file documented as of this encounter Visit Diagnoses Not on filedocumented in this encounter Care Teams Medical Secretary Teacher Relationship Specialty Start Date End Date Jean-Paul Carranza MD PCP - General Internal Medicine 06/04/18 11/10/19 Kyle Chavez MD [address] [place] [address] PCP - General Internal Medicine 11/11/19 11/21/22 [facility] [place], Pcp [address] [place], [place] [phone] PCP - General Internal Medicine 11/22/22 11/24/22 Kyle Chavez MD [address] [place] [address] PCP - General Internal Medicine 11/25/22 Bravo Edwards MD, PHD [address] [place] [address] Specialist Neurosurgery 06/10/21 documented as of this encounter
--- OUTSIDE RECORDS SUMMARY | 2024-07-05 10:04 | XMS_ITS | Encounter Summary ---
Author Organization [facility] Address [address] [place] [address] Care Team Providers Care Molder Punch Name Role Phone Kyle Chavez MD Primary Care Provider [phone] Bravo Edwards MD, PHD Unavailable [facility], Pcp Primary [facility] Kyle Chavez MD Primary Care Provider [phone] Reason for Visit * Reason Onset Date Comments infectious disease 05/22/2021 COVID testing Encounter Details Date Type Department Care Team Description 05/22/2021 Pt. Non Urgent Medic al Question Adult Medicine [address] [address] Mini Breen PA Social History Tobacco Use [...] - 05/24/2021 7:21 AM EST Please see [employer] message for COVIS testing assistance, thank you. documented in this encounter Miscellaneous Notes * Telephone Encounter - Carrie Roy M.A. - 05/24/2021 7:21 AM ESTFrom: Perla Dixon To: Jose Robin Sent: 05/22/2021 2:52 PM EST Subject: Covid tests [facility] [address] in [place] does not take my health insurance nor do any of them so Icannot go to an urgent care facility. Unless it's [facility]. Does [facility] do covid testing at all? I do need to have my antibiotic changed but like I said I can't leave my mother alone long. documented in this encounter Plan of Treatment Not on file documented as of this encounter Visit Diagnoses Not on filedocumented in this encounter Care Teams Molder Punch Relationship Specialty Start Date End Date Kyle Chavez MD [address] [place] [address] PCP - General Internal Medicine 11/11/19 11/21/22 [facility], Pcp [address] [place] [address] PCP - General Internal Medicine 11/22/22 11/24/22 Kyle Chavez MD [address] [place], [place] [phone] PCP - General Internal Medicine 11/25/22 Bravo Edwards MD, PHD [address] [place], [place] [phone] Specialist Neurosurgery 06/10/21 documented as of this encounter
--- OUTSIDE RECORDS SUMMARY | 2024-07-05 10:04 | XMS_ITS | Encounter Summary ---
Author Organization [facility] Address [address] [place] [address] Care Team Providers Care Nuclear Medical Technologist Name Role Phone Kyle Chavez MD Primary Care Provider [phone] Bravo Edwards MD, PHD Unavailable [facility], Pcp Primary Care Provider [facility] Kyle Chavez MD Primary Care Provider [phone] Encounter Details Date Type Department Care Team Description 05/28/2021 Telephone Adult Medicine [facility] [address] [place] [address] [phone] Julienne Campbell PA-C [address] [place] [address] [phone] Social History Tobacco Use Types Packs/Day Years [...] on filedocumented in this encounter Care Teams Nuclear Medical Technologist Relationship Specialty Start Date End Date Kyle Chavez MD [address] [place] [address] PCP - General Internal Medicine 11/11/19 11/21/22 [facility], Pcp [address] [place], [place] [phone] PCP - General Internal Medicine 11/22/22 11/24/22 Kyle Chavez MD [address] [place] [address] PCP - General Internal Medicine 11/25/22 Bravo Edwards MD, PHD [address] [place] [address] Specialist Neurosurgery 06/10/21 documented as of this encounter
--- OUTSIDE RECORDS SUMMARY | 2024-07-05 10:04 | XMS_ITS | Encounter Summary ---
Author Organization [facility] Address [address] [place] [address] Care Team Providers Care Oven Dumper Name Role Phone Kyle Chaevz MD Primary Care Provider [phone] Bravo Edwards MD, PHD Unavailable [facility] Pcp Primary Care Provider [facility] Kyle Chavez MD Primary Care Provider [phone] Encounter Details Date Type Department Care Team Description 06/16/2021 Release of Information Medical Records [address] [place] [id number] Abstract, Provider Social History Tobacco Use Types [...] on filedocumented in this encounter Care Teams Oven Dumper Relationship Specialty Start Date End Date Kyle Chavez MD [address] [place] [address] [phone] PCP - General Internal Medicine 11/11/19 11/21/22 [facility], Pcp [address] [place] [address] PCP - General Internal Medicine 11/22/22 11/24/22 Kyle Chavez MD [address] [place] [address] PCP - General Internal Medicine 11/25/22 Bravo Edwards MD, PHD [address] [place] [address] Specialist Neurosurgery 06/10/21 documented as of this encounter
== END 2024-07-05 09:18 | disposition home or self-care (01) ==
LOC: HO.CT 09:17
PROVIDERS: PCP Internal Medicine; Visit Provider Physician Assistant
DX: Z98.1 Arthrodesis status (principal)
CPT/HCPCS: 72125

== ENCOUNTER → 2024-07-05 09:18 | Outpatient (BNV) | payer OTHER, SELFPAY | PROVIDERS: PCP Internal Medicine; Visit Provider Radiology Diagnostic Radiology | DX: Z98.1 Arthrodesis status (principal); M47.812 Spondylosis without myelopathy or radiculopathy, cervical region; M48.02 Spinal stenosis, cervical region | CPT/HCPCS: 72125 ==

== ENCOUNTER 2024-07-10 12:54 | Outpatient (AMB) | payer OTHER, SELFPAY ==
--- NOTE | 2024-07-10 12:59 | A.SPINEOV_ITS ---
Intake Visit Reasons: 2nd post op with Xrays Intake Note: Ms. Dixon is here today for her 2nd post op with x-rays. Certified Surgical Tech/First Assistant Required: No Allergies amoxicillin [From AUGMENTIN] Allergy (Unknown, Verified 05/29/24 13:35) N/V/D cefaclor [From CECLOR] Allergy (Unknown, Verified 05/29/24 13:35) SWELLING clavulanic acid [From AUGMENTIN] Allergy (Unknown, Verified 05/29/24 13:35) N/V/D hydrocodone [From VICODIN] Allergy (Unknown, Verified 05/29/24 13:35) N/V flurazepam [From Dalmane] Allergy (Verified 05/29/24 13:35) Itching nitrofurantoin Allergy (Verified 05/29/24 13:35) Nausea and Vomiting Assessment & Plan Assessment & Plan (1) S/P cervical spinal fusion: Code(s): Z98.1 - Arthrodesis status Category: Surgical Plan: Dear colleague, On 07/10/2024, I saw for 2nd postoperative visit Perla Jay. She is status post anterior diskectomy and fusion C3-C4 C4-C5 for progressive cervical myelopathy. She states that her symptoms are stable and maybe slightly improved. She does have neck pain. Her main complaint today is a constant standing in a flexed position that causes back pain. She has a history of a lumbar fusion. On inspection, she has a flat back that pushes her in a flexed position. When I tried to extend her she flexes in her hips to compensate. This patient is status post cervical fusion from which she is recovering. 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 I will order an AP and lateral x-ray of the lumbar spine which we will review at her next appointment in 3 months. 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
--- OUTSIDE RECORDS SUMMARY | 2024-07-10 15:00 | XMS_ITS | Encounter Summary ---
Author Organization [facility] Address [address] [place] [address] Care Team Providers Care Children'S Author Name Role Phone Bravo Edwards MD, PHD Unavailable Unava Kyle King MD Primary Care Provider [phone] Encounter Details Date Type Department Care Team Description 01/26/2023 Pt. Non Urgent Medical Question Adult Medicine [address] [address] Kyle Chavez MD [address] [place] [address] Social History Tobacco Use Types Packs/Day Years [...] PM EDT Subject: Podiatry I found a gear tooth grinding machine operator his name is Dr Johnson Lozano. He's at [address] [place] [address]. Can you please send a referral to them because then they'll take me quicker than the end of March. I would greatly appreciate it. documented in this encounter Plan of Treatment Not on file documented as of this encounter Visit Diagnoses Not on filedocumented in this encounter Care Teams Children'S Author Relationship Specialty Start Date End Date Kyle Chavez MD [address] [place] [address] PCP - General Internal Medicine 11/25/22 Bravo Edwards MD, PHD Specialist Neurosurgery 06/10/21 documented as of this encounter
--- OUTSIDE RECORDS SUMMARY | 2024-07-10 15:00 | XMS_ITS | Encounter Summary ---
Author Organization [facility] Address [address] [place] [address] Care Team Providers Care Waistline Joiner Lockstitch Name Role Phone Kyle Chavez MD Primary Care Provider [phone] Bravo Edwards MD, PHD Unavailable [facility], Pcp Primary Care Provider [facility] Kyle Washington MD Primary Care Provider [phone] Reason for Visit * Reason Onset Date Comments injury 11/01/2022 Leg Pain 11/01/2022 Fall 11/01/2022 Encounter Details Date Type Department Care Team Description 11/01/2022 Pt. Non Urgent Medical Question Adult Medicine [address] [phone] Kyle Chavez MD [address] [place] [address] [phone] Social History Tobacco Use Types Packs/Day Years [...] badly Could someone please call me at [phone]. I mean when I say it hurts and a scale of 1 to 10 I'm a 15! I will anxiously be waiting for your response! Thank you very much... . Perla documented in this encounter Plan of Treatment Not on file documented as of this encounter Visit Diagnoses Not on filedocumented in this encounter Care Teams Waistline Joiner Lockstitch Relationship Specialty Start Date End Date Kyle Chavez MD [address] [place] [address] PCP - General Internal Medicine 11/11/19 11/21/22 [facility] Pcp [address] [place] [address] PCP - General Internal Medicine 11/22/22 11/24/22 Kyle Chavez MD [address] [place] [address] PCP - General Internal Medicine 11/25/22 Bravo Edwards MD, PHD [address] [place] [address] Specialist Neurosurgery 06/10/21 documented as of this encounter
--- OUTSIDE RECORDS SUMMARY | 2024-07-10 15:00 | XMS_ITS | Encounter Summary ---
Author Organization [facility] Address [address] [place] [address] Care Team Providers Care Gunnery/Ordnance Officer Name Role Phone Bravo Edwards MD, PHD Unavailable Unava Kyle King MD Primary Care Provider [phone] Encounter Details Date Type Department Care Team Description 05/09/2023 Pt. Non Urgent Medical Question Adult Medicine [address] [phone] Kyle Chavez MD [address] [place] [address] [phone] Social History Tobacco Use Types Packs/Day Years [...] Chavez L.P.N. - 05/09/2023 3:58 PM ESTFrom: Perla Dixon To: Jose Chavez Sent: 05/09/2023 3:48 PM EST Subject: [facility] Could Dr Chavez please call [facility] they need to speak to him about my prescription. Thank you documented in this encounter Plan of Treatment Not on file documented as of this encounter Visit Diagnoses Not on filedocumented in this encounter Care Teams Gunnery/Ordnance Officer Relationship Specialty Start Date End Date Kyle Chavez MD [address] [place] [address] PCP - General Internal Medicine 11/25/22 Bravo Edwards MD, PHD Specialist Neurosurgery 06/10/21 documented as of this encounter
--- OUTSIDE RECORDS SUMMARY | 2024-07-10 15:00 | XMS_ITS | Encounter Summary ---
Author Organization [facility] Address [address] [place] [address] Care Team Providers Care Imaging Science Professor Name Role Phone Kyle Chavez MD Primary Care Provider [phone] Bravo Edwards MD, PHD Unavailable [facility], Pcp Primary Care Provider [facility] Kyle Chavez MD Primary Care Provider [phone] Reason for Visit * Reason Onset Date Comments Provider Call Back 12/14/2020 Encounter Details Date Type Department Care Team Description 12/14/2020 Pt. Non Urgent Medical Question Adult Medicine [address] [address] Klye Chavez MD [address] [place] [address] [phone] Social History Tobacco Use Types Packs/Day Years [...] Telephone Encounter - Manasa Longo M.A. - 12/14/2020 11:49 AM EDTFrom: Perla Dixon To: Jose Chavez Sent: 12/14/2020 11:45 AM EDT Subject: Dunia Christiansen [birth year] Could the doctor please call me at his convenience? My phone number is [phone]. I need to talkto him about my mother's progression and about her medication. I'm the one that lives with her and I'm her only caregiver. I'm going to find out how to get into her portal. I just didn't have time towait when I call this morn ing. I truly would appreciate it thank you very much! documented in this encounter Plan of Treatment Not on file documented as of this encounter Visit Diagnoses Not on filedocumented in this encounter Care Teams Imaging Science Professor Relationship Specialty Start Date End Date Kyle Chavez MD [address] [place] [address] PCP - General Internal Medicine 11/11/19 11/21/22 [place] [phone] PCP - General Internal Medicine 11/22/22 11/24/22 Kyle Chavez MD [address] [place] [address] PCP - General Internal Medicine 11/25/22 Bravo Edwards MD, PHD [address] [place], [place] [phone] Specialist Neurosurgery 06/10/21 documented as of this encounter
--- OUTSIDE RECORDS SUMMARY | 2024-07-10 15:00 | XMS_ITS | Encounter Summary ---
Author Organization [facility] Address [address] [place] [address] Care Team Providers Care Endocrinologist Name Role Phone Kyle Chavez MD Primary Care Provider [phone] Bravo Edwards MD, PHD Unavailable [facility], Pcp Primary Care Provider Unavailabl Kyle Chavez MD Primary Care Provider [phone] Encounter Details Date Type Department Care Team Description 11/15/2022 Orders Only Medical Records [address] [place] [id number] Abstract, Provider Social History Tobacco Use Types [...] on filedocumented in this encounter Care Teams Endocrinologist Relationship Specialty Start Date End Date Kyle Chavez MD [address] [place] [address] PCP - General Internal Medicine 11/11/19 11/21/22 [facility], Pcp [address] [place] [address] PCP - General Internal Medicine 11/22/22 11/24/22 Kyle Chavez MD [address] [place] [address] PCP - General Internal Medicine 11/25/22 Bravo Edwards MD, PHD [address] [place] [address] Specialist Neurosurgery 06/10/21 documented as of this encounter
--- OUTSIDE RECORDS SUMMARY | 2024-07-10 15:00 | XMS_ITS | Encounter Summary ---
Author Organization [facility] Address [address] [place] [address] Care Team Providers Care Human Resources Benefits Specialist Name Role Phone Kyle Chavez MD Primary Care Provider [phone] Bravo Edwards MD, PHD [facility], Pcp Primary Care Provider [facility] Kyle Chavez MD Primary Care Provider [phone] Reason for Referral * Non FARHANA (Routine) - Authorized/Booked Specialty Diagnoses / Procedures Referred By Contac t Referred To Contact Endocrinology Procedures REFERRAL TO ENDOCRINOLOGY Mini Breen PA [address] [place] [address] [facility]/[address] [address] Referral ID Status Reason Start Date Expiration Date V isits Requested Visits Authorized [id number] Authorized/B ooked 03/31/2021 03/31/2022 1 1 Reason for Visit * Reason Onset Date Comments Advice 03/31/2021 last appt 11/2020 Medication 03/31/2021 CGM Encounter Details Date Type Department Care Team Description 03/31/2021 Pt. Non Urgent Medical Question Adult Medicine [address] [phone] Mini Breen PA Type 2 diabetes mellitus, [...] what you think. Please contact me at [phone]. Thank you so much for your time Mini! documented in this encounter Plan of Treatment Not on file documented as of this encounter Visit Diagnoses Diagnosis Type 2 diabetes mellitus, uncontrolled, with neuropathy- Primary Type II or unspecified type diabetes mellitus with neurological manifestations, uncontrolled documented in this encounter Care Teams Human Resources Benefits Specialist Relationship Specialty Start Date End Date Kyle Chavez MD [address] [place] [address] PCP - General Internal Medicine 11/11/19 11/21/22 [facility], Pcp [address] [place] [address] PCP - General Internal Medicine 11/22/22 11/24/22 Kyle Chavez MD [address] [place] [address] PCP - General Internal Medicine 11/25/22 Bravo Edwards MD, PHD [address] [place] [address] Specialist Neurosurgery 06/10/21 documented as of this encounter
--- OUTSIDE RECORDS SUMMARY | 2024-07-10 15:00 | XMS_ITS | Encounter Summary ---
Author Organization [facility] Address [address] [place] [address] Care Team Providers Care Automation And Control Engineer Name Role Phone Bravo Edwards MD, PHD Unavailable Unava Kyle King MD Primary Care Provider [phone] Encounter Details Date Type Department Care Team Description 01/17/2023 Pt. Non Urgent Medical Question Adult Medicine [address] [address] Kyle Chavez MD [address] [place] [address] Social History Tobacco Use Types Packs/Day Years [...] Chavez Sent: 01/17/2023 1:42 PM EDT Subject: Coding Manager You refer me to a doctor don't [...] on filedocumented in this encounter Care Teams Automation And Control Engineer Relationship Specialty Start Date End Date Kyle Chavez MD [address] [place] [address] PCP - General Internal Medicine 11/25/22 Bravo Edwards MD, PHD Specialist Neurosurgery 06/10/21 documented as of this encounter
--- OUTSIDE RECORDS SUMMARY | 2024-07-10 15:00 | XMS_ITS | Encounter Summary ---
Author Organization [facility] Address [address] [place] [address] Care Team Providers Care Clinical Dental Technician Name Role Phone Bravo Edwards MD, PHD Unavailable Unava Kyle King MD Primary Care Provider [phone] Encounter Details Date Type Department Care Team Description 12/05/2022 Pt. Non Urgent Medical Question Adult Medicine [address] [phone] Kyle Chavez MD [address] [place] [address] Social History Tobacco Use Types Packs/Day Years [...] filedocumented in this encounter Care Teams Clinical Dental Technician Relationship Specialty Start Date End Date Kyle Chavez MD [address] [place] [address] PCP - General Internal Medicine 11/25/22 Bravo Edwards MD, PHD Specialist Neurosurgery 06/10/21 documented as of this encounter
--- OUTSIDE RECORDS SUMMARY | 2024-07-10 15:00 | XMS_ITS | Encounter Summary ---
Author Organization [facility] Address [address] [place] [address] Care Team Providers Care Blood Typer Name Role Phone Bravo Edwards MD, PHD Unavailable Unava Kyle King MD Primary Care Provider [phone] Reason for Visit * Reason Onset Date Comments medication problems 05/09/2023 Encounter Details Date Type Department Care Team Description 05/09/2023 Telephone Adult Medicine [address] [phone] Kyle Chavez MD [address] [place] [address] [phone] medication problems Social History Tobacco Use Types [...] Encounter - Nancy Chavez L.P.N. - 05/09/2023 4:[address] Chavez, the pharmacist is going to fill at her discretion... they do not need to speak with you.... I just verified this with her... There are numerous messages in here from today and therefore hard to follow who has done what... but it is in the pharmacist hands now... and she says this will be the 5 th time she over rides her script. If she chooses to do so... she said she will have a long conversation with Perla... ... Roxy * Telephone Encounter - Ayden Conn - 05/09/2023 4:10 PM EST Who is calling? The patient Name of the medication lidocaine (LIDODERM) 5 % pregabalin (LYRICA) 150 MG capsule What is the specific problem or interaction? Patient states that she would like for her PCP to callthe pharmacy as they are waiting for specific information from our office in order to release the medication to the patient If the patient is having a problem with taking the med - how long has the problem been going on? N/A documented in this encounter Plan of Treatment Not on file documented as of this encounter Visit Diagnoses Not on filedocumented in this encounter Care Teams Blood Typer Relationship Specialty Start Date End Date Kyle Chavez MD [address] [place] [address] PCP - General Internal Medicine 11/25/22 Bravo Edwards MD, PHD Specialist Neurosurgery 06/10/21 documented as of this encounter
--- OUTSIDE RECORDS SUMMARY | 2024-07-10 15:00 | XMS_ITS | Encounter Summary ---
Author Organization [facility] Address [address] [place] [address] Care Team Providers Care Airport Traffic Controller Name Role Phone Bravo Edwards MD, PHD Unavailable Unava ilable Kyle Chavez MD Primary Care Provider [phone] Encounter Details Date Type Department Care Team Description 05/03/2023 Pt. Non Urgent Medical Question Adult Medicine [address] [phone] Kyle Chavez MD [address] [place] [address] [phone] Social History Tobacco Use Types Packs/Day Years [...] filedocumented in this encounter Care Teams Airport Traffic Controller Relationship Specialty Start Date End Date Kyle Chavez MD [address] [place] [address] [phone] PCP - General Internal Medicine 11/25/22 Bravo Edwards MD, PHD Specialist Neurosurgery 06/10/21 documented as of this encounter
--- OUTSIDE RECORDS SUMMARY | 2024-07-10 15:00 | XMS_ITS | Encounter Summary ---
Author Organization [facility] Address [address] [place] [address] Care Team Providers Care Doctor Of Naturopathic Medicine Name Role Phone Bravo Edwards MD, PHD Unavailable Unava Kyle King MD Primary Care Provider Encounter Details Date Type Department Care Team Description 01/16/2023 Pt. 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 Iwas let go enrique I missed two appointments one when I was up and leaves with my broken leg and the second one enrique I'm homeless now. And I lost my phone. Can someone please call me at [phone] Jaunyou documented in this encounter Plan of Treatment Not on file documented as of this encounter Visit Diagnoses Not on filedocumented in this encounter Care Teams Doctor Of Naturopathic Medicine Relationship Specialty Start Date End Date Kyle Chavez MD [address] [place] [address] PCP - General Internal Medicine 11/25/22 Bravo Edwards MD, PHD Specialist Neurosurgery 06/10/21 documented as of this encounter
--- OUTSIDE RECORDS SUMMARY | 2024-07-10 15:00 | XMS_ITS | Encounter Summary ---
Author Organization [facility] Address [address] [place] [address] Care Team Providers Care Career Developer Name Role Phone Lucia Duff MD Primary Care Provider Amy Maldonado MD Primary Care Provider Unavail able Jean-Paul Carranza MD Primary Care Provider Unavail able Kyle Chavez MD Primary Care Provider [phone] Bravo Edwards MD, PHD [facility] Primary Care Provider Unavailabl Kyle Washington MD Primary Care Provider Encounter Details Date Type Department Care Team Description 03/18/2016 Naval Designer Report Medical Records [address] [place] [address] [place] Talavera Social History Tobacco Use Types Packs/Day Years [...] on filedocumented in this encounter Care Teams Career Developer Relationship Specialty Start Date End Date Lucia Duff MD PCP - General Internal Medicine 02/12/15 01/31/18 Amy Hernandez MD PCP - General Internal Medicine 02/01/18 06/03/18 Jean-Paul Carranza MD PCP - General Internal Medicine 06/04/18 11/10/19 Kyle Chavez MD [address] [place] [address] PCP - General Internal Medicine 11/11/19 11/21/22 [facility], Pcp [address] [place], [place] [phone] PCP - General Internal Medicine 11/22/22 11/24/22 Kyle Chavez MD [address] [place] [address] PCP - General Internal Medicine 11/25/22 Bravo Edwards MD, PHD [address] [place] [address] Specialist Neurosurgery 06/10/21 documented as of this encounter
--- OUTSIDE RECORDS SUMMARY | 2024-07-10 15:00 | XMS_ITS | Encounter Summary ---
Author Organization [facility] Address [address] [place] [address] Care Team Providers Care Section Weaver Name Role Phone Kyle Chavez MD Primary Care Provider [phone] Bravo Edwards MD, PHD Unavailable [facility], Pcp Primary Care Provider [facility] Kyle Chavez MD Primary Care Provider Encounter Details Date Type Department Care Team Description 12/01/2020 Orders Only Adult Medicine [address] [address] Mini Breen PA Spinal stenosis of cervical [...] (11/21/2020) Mini RAMSEY MRI Performing Organization Address [facility] Co de Phone Number [address] * MRI OF CERVICAL SPINE NO CONTRAST (11/21/2020) Mini RAMSEY MRI Performing Organization Address [facility] Co de Phone Number [place] [phone] [facility] documented in this encounter Visit Diagnoses Diagnosis Spinal stenosis of cervical region Spinal stenosis in cervical region Abnormal brain MRI Nonspecific (abnormal) findings on radiological and other examination of skull and head documented in this encounter Care Teams Section Weaver Relationship Specialty Start Date End Date Kyle Chavez MD [address] [place] [address] PCP - General Internal Medicine 11/11/19 11/21/22 [facility] Pcp [address] [place] [address] PCP - General Internal Medicine 11/22/22 11/24/22 Kyle Chavez MD [address] [place] [address] PCP - General Internal Medicine 11/25/22 Bravo Edwards MD, PHD [address] [place] [address] Specialist Neurosurgery 06/10/21 documented as of this encounter
--- OUTSIDE RECORDS SUMMARY | 2024-07-10 15:00 | XMS_ITS | Encounter Summary ---
Author Organization [facility] Address [address] [place] [address] Care Team Providers Care Perch Mender Name Role Phone Bravo Edwards MD, PHD Unavailable Unava Kyle King MD Primary Care Provider [phone] Reason for Visit * Reason Onset Date Comments Mychart Rx Refill 11/25/2022 Encounter Details Date Type Department Care Team Description 11/25/2022 Pt. Non Urgent Medical Question Adult Medicine [address] [phone] Kyle Chavez MD [address] [place] [address] [phone] Social History Tobacco Use Types Packs/Day Years [...] an appointment right after I go to [facility]. Thank you documented in this encounter Plan of Treatment Not on file documented as of this encounter Visit Diagnoses Not on filedocumented in this encounter Care Teams Perch Mender Relationship Specialty Start Date End Date Kyle Chavez MD [address] [place] [address] PCP - General Internal Medicine 11/25/22 Bravo Edwards MD, PHD Specialist Neurosurgery 06/10/21 documented as of this encounter
--- OUTSIDE RECORDS SUMMARY | 2024-07-10 15:00 | XMS_ITS | Encounter Summary ---
Author Organization [facility] Address [address] [place] [address] Care Team Providers Care Taproom Attendant Name Role Phone Kyle Chavez MD Primary Care Provider [phone] Bravo Edwards MD, PHD Unavailable [facility], Pcp Primary Care Provider [facility] Kyle Chavez MD Primary Care Provider [phone] Encounter Details Date Type Department Care Team Description 04/14/2021 Pt. Non Urgent Medic al Question Adult Medicine [address] [address] Mini Breen PA Social History Tobacco Use [...] Attendant Relationship Specialty Start Date End Date Kyle Chavez MD [address] [place] [address] PCP - General Internal Medicine 11/11/19 11/21/22 [facility], Pcp [address] [place] [address] PCP - General Internal Medicine 11/22/22 11/24/22 Kyel Chavez MD [address] [place] [address] PCP - General Internal Medicine 11/25/22 Bravo Edwards MD, PHD [address] [place] [address] Specialist Neurosurgery 06/10/21 documented as of this encounter
--- OUTSIDE RECORDS SUMMARY | 2024-07-10 15:00 | XMS_ITS | Encounter Summary ---
Author Organization [facility] Address [address] [place] [address] Care Team Providers Care Supervisor Model Making Name Role Phone Bravo Edwards MD, PHD Unavailable Unava Kyle King MD Primary Care Provider [phone] Encounter Details Date Type Department Care Team Description 12/05/2022 Pt. Non Urgent Medical Question Adult Medicine [address] [address] Kyle Chavez MD [address] [place] [address] Social History Tobacco Use Types Packs/Day Years [...] encounter Miscellaneous Notes * Telephone Encounter - Chiqui Vaz C.N.A - 12/05/2022 9:23 AM EDTFrom: Perla BellZack To: Jose Chavez Sent: 12/05/2022 9:20 AM EDT Subject: Aches Hi Dr Chavez, I have been aching everywhere so very badly. I'm talking about my elbows my knuckles myfeet my knees a headache down the back of my neck and my skull. It's just everywhere. Is there anything I can take that would stop that documented in this encounter Plan of Treatment Not on file documented as of this encounter Visit Diagnoses Not on filedocumented in this encounter Care Teams Supervisor Model Making Relationship Specialty Start Date End Date Kyle Chavez MD [address] [place] [address] PCP - General Internal Medicine 11/25/22 Bravo Edwards MD, PHD Specialist Neurosurgery 06/10/21 documented as of this encounter
--- OUTSIDE RECORDS SUMMARY | 2024-07-10 15:00 | XMS_ITS | Encounter Summary ---
Author Organization [facility] Address [address] [place] [address] Care Team Providers Care Automatic Packer Operator Name Role Phone Kyle Chavez MD Primary Care Provider [phone] Bravo Edwards MD, PHD Unavailable [facility], Pcp Primary Care Provider [facility] Kyle Chavez MD Primary Care Provider [phone] Encounter Details Date Type Department Care Team Description 11/01/2022 Night Triage Doc Medical Records [address] [place] [address] Abstract, Provider Social History Tobacco Use Types [...] on filedocumented in this encounter Care Teams Automatic Packer Operator Relationship Specialty Start Date End Date Kyle Chavez MD [address] [place] [address] [phone] PCP - General Internal Medicine 11/11/19 11/21/22 [facility], Pcp [address] [place] [address] PCP - General Internal Medicine 11/22/22 11/24/22 Kyle Chavez MD [address] [place] [address] PCP - General Internal Medicine 11/25/22 Bravo Edwards MD, PHD [address] [place] [address] Specialist Neurosurgery 06/10/21 documented as of this encounter
--- OUTSIDE RECORDS SUMMARY | 2024-07-10 15:00 | XMS_ITS | Encounter Summary ---
Author Organization [facility] Address [address] [place] [address] Care Team Providers Care Supervisor Weaving Name Role Phone Bravo Edwards MD, PHD Unavailable Unava Kyle King MD Primary Care Provider [phone] Encounter Details Date Type Department Care Team Description 01/04/2023 Pt. Non Urgent Medical Question Adult Medicine [address] [address] Kyle Chavez MD [address] [place] [address] Social History Tobacco Use Types Packs/Day Years [...] Telephone Encounter - Disha Arce M.A. - 01/04/2023 2:59 PM EDTFrom: Perla Dixon To: Jose Chavez Sent: 01/04/2023 2:52 PM EDT Subject: ACO It's for someone to help me look for housing a housing navigator. I just left her a message as soonas she calls me back and gives me the information I will send you a message on where to send it andwhat it is. Thank you for your help! documented in this encounter Plan of Treatment Not on file documented as of this encounter Visit Diagnoses Not on filedocumented in this encounter Care Teams Supervisor Weaving Relationship Specialty Start Date End Date Kyle Chavez MD [address] [place] [address] PCP - General Internal Medicine 11/25/22 Bravo Edwards MD, PHD Specialist Neurosurgery 06/10/21 documented as of this encounter
--- OUTSIDE RECORDS SUMMARY | 2024-07-10 15:00 | XMS_ITS | Encounter Summary ---
Author Organization [facility] Address [address] [place] [address] Care Team Providers Care Convertible Power Shovel Operator Name Role Phone Bravo Edwards MD, PHD Unavailable Unava ilKyle Camejo MD Primary Care Provider [phone] Reason for Visit * Reason Onset Date Comments Advice 02/26/2023 Encounter Details Date Type Department Care Team Description 02/26/2023 Pt. Non Urgent Medical Question Adult Medicine [address] [phone] Kyle Chavez MD [address] [place] [address] Social History Tobacco Use Types Packs/Day Years [...] 02/27/2023 8:47 AM EDTFrom: Perla Dixon To: Joes Chavez Sent: 02/26/2023 5:08 PM EDT Subject: [...] how I will make it in a assisted it's going to ruin me! I need [...] on filedocumented in this encounter Care Teams Convertible Power Shovel Operator Relationship Specialty Start Date End Date Kyle Chavez MD [address] [place] [address] PCP - General Internal Medicine 11/25/22 Bravo Edwards MD, PHD Specialist Neurosurgery 06/10/21 documented as of this encounter
--- OUTSIDE RECORDS SUMMARY | 2024-07-10 15:00 | XMS_ITS | Encounter Summary ---
Author Organization [facility] Address [address] [place] [address] Care Team Providers Care Guest Services Associate Name Role Phone Kyle Chavez MD Primary Care Provider [phone] Bravo Edwards MD, PHD Unavailable [facility], Pcp Primary Care Provider [facility] Kyle Chavez MD Primary Care Provider [phone] Encounter Details Date Type Department Care Team Description 01/07/2021 Pt. Non Urgent Medic al Question Adult Medicine [address] [address] Mini Breen PA Social History Tobacco Use [...] Encounter - Rosalie Lyles M.A. - 01/07/2021 9:12 AM EDTFrom: Perla Dixon To: Jose Kelly Sent: 01/07/2021 8:27 AM EDT Subject: UTI If you need to contact me please call [phone]. My cell phone cracked so that's my home line. Thank you for everything! documented in this encounter Plan of Treatment Not on file documented as of this encounter Visit Diagnoses Not on filedocumented in this encounter Care Teams Guest Services Associate Relationship Specialty Start Date End Date Kyle Chavez MD [address] [place] [address] PCP - General Internal Medicine 11/11/19 11/21/22 [facility], Pcp [address] [place] [address] PCP - General Internal Medicine 11/22/22 11/24/22 Kyle Chavez MD [address] [place] [address] PCP - General Internal Medicine 11/25/22 Bravo Edwards MD, PHD [address] [place] [address] Specialist Neurosurgery 06/10/21 documented as of this encounter
--- OUTSIDE RECORDS SUMMARY | 2024-07-10 15:00 | XMS_ITS | Encounter Summary ---
Author Organization [facility] Address [address] [place] [address] Care Team Providers Care Web Coordinator Name Role Phone Kyle Chavez MD Primary Care Provider [phone] Bravo Edwards MD, PHD Unavailable [facility] Pcp Primary Care Provider Unavailabl Kyle Chavez MD Primary Care Provider [phone] Encounter Details Date Type Department Care Team Description 04/15/2021 Transfer Records Medical Records [address] [place] [address] [facility] Social History Tobacco Use Types Packs/Day [...] on filedocumented in this encounter Care Teams Web Coordinator Relationship Specialty Start Date End Date Kyle Chavez MD [address] [place] [address] PCP - General Internal Medicine 11/11/19 11/21/22 [facility], Pcp [address] [place] [address] PCP - General Internal Medicine 11/22/22 11/24/22 Kyle Chavez MD [address] [place] [address] PCP - General Internal Medicine 11/25/22 Bravo Edwards MD, PHD [address] [place] [address] Specialist Neurosurgery 06/10/21 documented as of this encounter
--- OUTSIDE RECORDS SUMMARY | 2024-07-10 15:00 | XMS_ITS | Encounter Summary ---
Author Organization [facility] Address [address] [place] [address] Care Team Providers Care Cook Mess Name Role Phone Bravo Edwards MD, PHD Unavailable Unava Kyle King MD Primary Care Provider [phone] Encounter Details Date Type Department Care Team Description 06/13/2023 Pt. Non Urgent Medical Question Adult Medicine [address] [address] Kyle Chavez MD [address] [place] [address] Social History Tobacco Use Types Packs/Day Years [...] on filedocumented in this encounter Care Teams Cook Mess Relationship Specialty Start Date End Date Kyle Chavez MD [address] [place] [address] PCP - General Internal Medicine 11/25/22 Bravo Edwards MD, PHD Specialist Neurosurgery 06/10/21 documented as of this encounter
--- OUTSIDE RECORDS SUMMARY | 2024-07-10 15:00 | XMS_ITS | Encounter Summary ---
Author Organization [facility] Address [address] [place] [address] Care Team Providers Care Inventory Assistant Name Role Phone Bravo Edwards MD, PHD Unavailable Unava ilable Kyle Chavez MD Primary Care Provider [phone] Encounter Details Date Type Department Care Team Description 07/26/2023 [facility] Medical Records [address] [place] [address] Abstract, Provider Social History Tobacco Use Types [...] on filedocumented in this encounter Care Teams Inventory Assistant Relationship Specialty Start Date End Date Kyle Chavez MD [address] [place] [address] [id number] PCP - General Internal Medicine 11/25/22 Bravo Edwards MD, PHD Specialist Neurosurgery 06/10/21 documented as of this encounter
--- OUTSIDE RECORDS SUMMARY | 2024-07-10 15:00 | XMS_ITS | Encounter Summary ---
Author Organization [facility] Address [address] [place] [address] Care Team Providers Care Mold Maker Helper Name Role Phone Bravo Edwards MD, PHD Unavailable Unava ilable Kyle Chavez MD Primary Care Provider [phone] Encounter Details Date Type Department Care Team Description 07/17/2023 Pt. Non Urgent Medical Question Adult Medicine [address] [phone] Kyle Chavez MD [address] [place] [address] [phone] Social History Tobacco Use Types Packs/Day Years [...] on filedocumented in this encounter Care Teams Mold Maker Helper Relationship Specialty Start Date End Date Kyle Chavez MD [address] [place] [address] [phone] PCP - General Internal Medicine 11/25/22 Bravo Edwards MD, PHD Specialist Neurosurgery 06/10/21 documented as of this encounter
--- OUTSIDE RECORDS SUMMARY | 2024-07-10 15:00 | XMS_ITS | Encounter Summary ---
Author Organization [facility] Address [address] [place] [address] Care Team Providers Care C Web Developer Name Role Phone Lucia Duff MD Primary Care Provider Amy Maldonado MD Primary Care Provider Unavail able Jean-Paul Carranza MD Primary Care Provider Unavail able Kyle Chavez MD Primary Care Provider [phone] Bravo Edwards MD, PHD Unavailable Unava [facility], Pcp Primary Care Provider Unavailabl e Kyle Chavez MD Primary Care Provider [phone] Reason for Visit * Reason Onset Date Comments refill request 11/27/2015 Encounter Details Date Type Department Care Team Description 11/27/2015 Refill Adult Medicine [address] [address] Lucia Duff MD refill request Social History [...] WAS THE PATIENT'S LAST APPOINTMENT IN ADULT MEDICINE?[id number] WHEN WAS THE LAST TIME THE PATIENT SAW THEIR PCP?[id number] Does patient have an upcoming appointment? Yes [id number] (THE MEDICATION REQUESTED IS ON THE MED LIST ABOVE) All of the medications requested were on the CURRENT MEDS list Did you check the Pharmacy information above?: YES Patient wants: 30 -day supply Is this a mail order prescription request ? NO Patients current insurance carrier is: Payor: [facility] [place] / Plan: [facility] INSURANCE / Product Type: OTHER documented in this encounter Plan of Treatment Not on file documented as of this encounter Visit Diagnoses Not on filedocumented in this encounter Care Teams C Web Developer Relationship Specialty Start Date End Date Lucia Duff MD PCP - General Internal Medicine 02/12/15 01/31/18 Aym Hernandez MD PCP - General Internal Medicine 02/01/18 06/03/18 Jean-Paul Carranza MD PCP - General Internal Medicine 06/04/18 11/10/19 Kyle Chavez MD [address] [place], [place] [phone] PCP - General Internal Medicine 11/11/19 11/21/22 [place] [phone] PCP - General Internal Medicine 11/22/22 11/24/22 Kyle Chavez MD [address] [place], [place] 9[address]50[address] PCP - General Internal Medicine 11/25/22 Bravo Edwards MD, PHD [address] [place], [place] [phone] Specialist Neurosurgery 06/10/21 documented as of this encounter
--- OUTSIDE RECORDS SUMMARY | 2024-07-10 15:00 | XMS_ITS | Encounter Summary ---
Author Organization [facility] Address [address] [place] [address] Care Team Providers Care Child Care Associate Name Role Phone Bravo Edwards MD, PHD Unavailable Unava Kyle King MD Primary Care Provider [phone] Encounter Details Date Type Department Care Team Description 07/25/2023 Pt. Non Urgent Medical Question Adult Medicine [address] [phone] Kyle Chavez MD [address] [place] [address] [phone] Social History Tobacco Use Types Packs/Day Years [...] * Telephone Encounter - Tamie Polanco - 07/25/2023 9:06 AM EDTFrom: Perla Dixon To: Jose Chavez Sent: 07/25/2023 8:55 AM EDT Subject: Appointment I canceled my appointment for Monday. I need to reschedule that I did not realize I had another appointment that day. Could someone please contact me so I can get an appointment. It's about my legs and hips. My phone number is [phone]. Hope to hear from you soon. Thank you for your time! documented in this encounter Plan of Treatment Not on file documented as of this encounter Visit Diagnoses Not on filedocumented in this encounter Care Teams Child Care Associate Relationship Specialty Start Date End Date Kyle Chavez MD [address] [place] [address] PCP - General Internal Medicine 11/25/22 Bravo Edwards MD, PHD Specialist Neurosurgery 06/10/21 documented as of this encounter
--- OUTSIDE RECORDS SUMMARY | 2024-07-10 15:00 | XMS_ITS | Encounter Summary ---
Author Organization [facility] Address [address] [place] [address] Care Team Providers Care Design Chief Name Role Phone Bravo Edwards MD, PHD Unavailable Unava ilable Kyle Chavez MD Primary Care Provider [phone] Encounter Details Date Type Department Care Team Description 06/13/2023 Pt. Non Urgent Medical Question Adult Medicine [address] [phone] Kyle Chavez MD [address] [place] [address] [phone] Social History Tobacco Use Types Packs/Day Years [...] filedocumented in this encounter Care Teams Design Chief Relationship Specialty Start Date End Date Kyle Chavez MD [address] [place] [address] [phone] PCP - General Internal Medicine 11/25/22 Bravo Edwards MD, PHD Specialist Neurosurgery 06/10/21 documented as of this encounter
--- OUTSIDE RECORDS SUMMARY | 2024-07-10 15:00 | XMS_ITS | Encounter Summary ---
Author Organization [facility] Address [address] [place] [address] Care Team Providers Care Label Printer Name Role Phone Bravo Edwards MD, PHD Unavailable Unava Kyle King MD Primary Care Provider [phone] Encounter Details Date Type Department Care Team Description 06/19/2023 Pt. Non Urgent Medical Question Adult Medicine [address] [phone] Kyle Chavez MD [address] [place] [address] [phone] Social History Tobacco Use Types Packs/Day Years [...] on filedocumented in this encounter Care Teams Label Printer Relationship Specialty Start Date End Date Kyle Chavez MD [address] [place] [address] PCP - General Internal Medicine 11/25/22 Bravo Edwards MD, PHD Specialist Neurosurgery 06/10/21 documented as of this encounter
--- OUTSIDE RECORDS SUMMARY | 2024-07-10 15:00 | XMS_ITS | Encounter Summary ---
Author Organization [facility] Address [address] [place] [address] Care Team Providers Care Service Transformer Repair Supervisor Name Role Phone Kyle Chavez MD Primary Care Provider [phone] Bravo Edwards MD, PHD Unavailable [facility], Pcp Primary Care [facility] Kyle Chavez MD Primary Care Provider [phone] Reason for Visit * Reason Onset Date Comments Prior Authorization 05/04/2021 Encounter Details Date Type Department Care Team Description 05/04/2021 Telephone Adult Medicine [address] [phone] Kyle Chavez MD [address] [place] [address] [phone] Prior Authorization Social History Tobacco Use Types [...] done and approved from 05/03/2021-05/03/2022. I called [facility] pharmacy and this went through patients [...] What Pharmacy did the fax come from: [facility] fax #: [phone] [employer] Information from fax: What Prescription Plan does the patient have? BIN/PCN if applicable: Cardholder ID: Person Code: Relationship Code: Help desk phone: documented in this encounter Plan of Treatment Not on file documented as of this encounter Visit Diagnoses Not on filedocumented in this encounter Care Teams Service Transformer Repair Supervisor Relationship Specialty Start Date End Date Kyle Chavez MD [address] [place] [address] PCP - General Internal Medicine 11/11/19 11/21/22 [facility], Pcp [address] [place] [address] PCP - General Internal Medicine 11/22/22 11/24/22 Kyle Chavez MD [address] [place] [address] PCP - General Internal Medicine 11/25/22 Bravo Edwards MD, PHD [address] [place] [address] Specialist Neurosurgery 06/10/21 documented as of this encounter
--- OUTSIDE RECORDS SUMMARY | 2024-07-10 15:00 | XMS_ITS | Patient Health Record ---
Author [facility] Address [address] [place] [address] Care Team Providers Care Shoe Stainer Name Role Phone Cheko Chavez MD Primary Care Provider Julienne Cade Unavailable [phone] Allergies Allergen (clinical drug ingredient) Drug/Non Drug Allergy documented on EMR Reaction Allergy Type Onset Date Status Spinal Injection (uncoded) Unknown Allergy Active Augmentin vomiting Drug Allergy Active Vicodin vomiting [...] Problem Acquired hammer toe of right foot (558865365489 9105) Other hammer toe(s) (acquired), right foot (M20.41) Active confirmed Problem Acquired hammer toe of left foot ([id number] 9103) Other hammer toe(s) (acquired), left foot (M20.42) Active confirmed Problem [id number] Hammer toe of le ft foot (M20.42) Active confirmed Problem [id number] Type 2 diabetes mellitus with polyneuropathy (E11.42) Active confirmed Vital Signs Blood pressure diastolic 70 mm Hg 05/29/2024 Height 5ft3in in 05/29/2024 Blood pressure systolic 110 mm Hg 05/29/2024 Weight 160 lbs 05/29/2024 BMI 28.34 kg/m2 05/29/2024 Encounters Encounter Location Date Provider Diagnosis [facility] [address] [place] [address] 08/18/2023 Julienne Pop Tinea unguium B35.1 and Type 2 diabetes mellitus with polyneuropathy E11.[address] [address] 11/21/2023 Julienne Pop Tinea unguium B35.1 and Type 2 diabetes mellitus with polyneuropathy E11.[address] [address] 03/06/2024 Julienne Pop Type 2 diabetes mellitus with polyneuropathy E11.42 ; Other hammer toe(s) (acquired), right foot M20.41 ; Tinea unguium B35.1 and Other hammer toe(s) (acquired), left foot M20.[address] [address] 05/29/2024 Julienne Pop Type 2 diabetes mellitus with polyneuropathy E11.42 and Tinea unguium B35.[address] [address] 07/25/2023 Julienne Pop [address] [address] 08/18/2023 Julienne Pop Assessments Encounter Date Diagnosis [...] Plan Of Treatment Next Appt Details Provider Name:Juliennefredy rock, 08/21/2024 11:00:00 AM, [address] [place] [address], [phone], Insurance Providers Payer Name Payer Address Payer Phone Subscriber Number Group Number Insured Name Patient Relationship to Insured Coverage Start Date Coverage End Date [facility] [employer] Claims [address] [facility] [place] [id number] Perla Pelaez Self - patient is the [...]
--- OUTSIDE RECORDS SUMMARY | 2024-07-10 15:01 | XMS_ITS | Encounter Summary ---
Author Organization [facility] Address [address] [place] [address] Care Team Providers Care Lymphedema Therapist Name Role Phone Jean-Paul Carranza MD Primary Care Provider Unavail Kyle Camejo MD Primary Care Provider [phone] Bravo Edwards MD, PHD Unavailable [facility], Pcp Primary Care Provider UnavailKyle Putnam MD Primary Care Provider [phone] Reason for Visit * Reason Onset Date Comments refill request 07/30/2018 Encounter Details Date Type Department Care Team Description 07/30/2018 Refill Adult Medicine [address] [address] Jean-Paul Carranza MD refill request Social History [...] 4:27 PM EDT Please call pt @ [phone] * Telephone Encounter - Elmer Sethi C.M.A. [...] due until Monday. * Telephone Encounter - Emler Sethi C.M.A. - 07/30/2018 9:53 AM EDT [...] N/A Patients current insurance carrier is: Payor: [facility] / Plan: ONE CARE [facility] / Product Type: HMO [id number] documented in this encounter Plan of Treatment Not on file documented as of this encounter Visit Diagnoses Not on filedocumented in this encounter Care Teams Lymphedema Therapist Relationship Specialty Start Date End Date Jean-Paul Carranza MD PCP - General Internal Medicine 06/04/18 11/10/19 Kyle Chavez MD [address] [place] [address] PCP - General Internal Medicine 11/11/19 11/21/22 [facility], Pcp [address] [place] [address] PCP - General Internal Medicine 11/22/22 11/24/22 Kyle Chavez MD [address] [place] [address] PCP - General Internal Medicine 11/25/22 Bravo Edwards MD, PHD [address] [place] [address] Specialist Neurosurgery 06/10/21 documented as of this encounter
--- OUTSIDE RECORDS SUMMARY | 2024-07-10 15:01 | XMS_ITS | Encounter Summary ---
Author Organization [facility] Address [address] [place] [address] Care Team Providers Care Race Starter Name Role Phone Carlos Nuno MD Primary Care Provider [phone] Lucia Duff MD Primary Care Provider Amy Maldonado MD Primary Care Provider Unavail able Jean-Paul Carranza MD Primary Care Provider Unavail able Kyle Chavez MD Primary Care Provider [phone] Bravo Edwards MD, PHD Unavailable [facility], Pcp Primary Care Provider Unavailabl Kyle Washington MD Primary Care Provider [phone] Reason for Visit * Reason Comments refill request refills Encounter Details Date Type Department Care Team Description 12/23/2003 Telephone Adult Medicine [address] [phone] Carlos Nuno MD [address] [place] [address] [phone] refill request (refills) Social History Tobacco Use Types Packs/Day Years Used Date Smoking Tobacco: Never Assessed Sex Assigned at Date Recorded Female 09/28/2021 7:19 AM E DT Job Start Date Occupation Industry Not on file Not on file Not on file documented as of this encounter Miscellaneous Notes * Telephone Encounter - 12/23/2003 3:31 PM EDTCALL RECEIVED. Contact: self [phone] Pt advised rx's will not be written [...] THE END OF THE DAY? YES Payor: [facility] INSURANCE Plan: [facility] INSURANCE Product Type: OTHER RX REFILLS MED NAME: Lorazepam DOSAGE: 0.5 mg # OF TABLETS: #112 INSTRUCTIONS: take up to 1 tab 4x daily documented in this encounter Plan of Treatment Not on file documented as of this encounter Visit Diagnoses Not on filedocumented in this encounter Care Teams Race Starter Relationship Specialty Start Date End Date Carlos Nuno MD [address] [place] [address] PCP - General 12/16/1994 02/11/15 Lucia Duff MD [address] [place] [address] PCP - General Internal Medicine 02/12/15 01/31/18 Amy Hernandez MD [address] [place], [place] [phone] PCP - General Internal Medicine 02/01/18 06/03/18 Jean-Paul Carranza MD [address] [place] [address] PCP - General Internal Medicine 06/04/18 11/10/19 Kyle Chavez MD [address] [place] [address] PCP - General Internal Medicine 11/11/19 11/21/22 [facility] [place] [phone] PCP - General Internal Medicine 11/22/22 11/24/22 Kyle Chavez MD [address] [place] [address] PCP - General Internal Medicine 11/25/22 Bravo Edwards MD, PHD [address] [place], [place] [phone] Specialist Neurosurgery 06/10/21 documented as of this encounter
--- OUTSIDE RECORDS SUMMARY | 2024-07-10 15:01 | XMS_ITS | Encounter Summary ---
Author Organization [facility] Address [address] [place] [address] Care Team Providers Care Finish Off Operator Name Role Phone Kyle Chavez MD Primary Care Provider [phone] Bravo Edwards MD, PHD Unavailable [facility], Pcp Primary Care Provider [facility] Kyle Chavez MD Primary Care Provider [phone] Reason for Visit * Reason Onset Date Comments Testing 09/25/2020 MRI OF BRAIN NO CONTRAST Encounter Details Date Type Department Care Team Description 09/25/2020 Telephone Adult Medicine [address] [phone] Kyle Chavez MD [address] [place] [address] [phone] Testing (MRI OF BRAIN NO CONTRAST) Social [...] on filedocumented in this encounter Care Teams Finish Off Operator Relationship Specialty Start Date End Date Kyle Chavez MD [address] [place] [address] PCP - General Internal Medicine 11/11/19 11/21/22 [facility] Pcp [address] [place] [address] PCP - General Internal Medicine 11/22/22 11/24/22 Kyle Chavez MD [address] [place] [address] PCP - General Internal Medicine 11/25/22 Bravo Edwards MD, PHD [address] [place], [place] [phone] Specialist Neurosurgery 06/10/21 documented as of this encounter
--- OUTSIDE RECORDS SUMMARY | 2024-07-10 15:01 | XMS_ITS | Clinical Summary ---
Author Organization [employer] Address [address] [place] [address] [address] [place] [address] Care Team Providers Care Electric Fan Assembler Name Role Phone Unavailable Primary Care Provider [...] patient's age to complete this topic Insurance [facility]
--- OUTSIDE RECORDS SUMMARY | 2024-07-10 15:01 | XMS_ITS | Encounter Summary ---
Author Organization [facility] Address [address] [place] [address] Care Team Providers Care Site Leasing Agent Name Role Phone Carlos Chávez MD Primary Care Provider [phone] Lucia Duff MD Primary Care Provider UnaAmy Ureña MD Primary Care Provider Unavail able Jean-Paul Carranza MD Primary Care Provider Unavail able Kyle Chavez MD Primary Care Provider [phone] Bravo Edwards MD, PHD Unavailable [facility], Pcp Primary Care Provider Unavailabl e Kyle Chavez MD Primary Care Provider [phone] Encounter Details Date Type Department Care Team Description 11/08/2004 Telephone Adult [address] [phone] Carlos Chávez MD [address] [place] [address] [phone] Social History Tobacco Use Types Packs/Day Years [...] on filedocumented in this encounter Care Teams Site Leasing Agent Relationship Specialty Start Date End Date Carlos Chávez MD [address] [place] [address] PCP - General 12/16/1994 02/11/15 Lucia Duff MD [address] [place], [place] [phone] PCP - General Internal Medicine 02/12/15 01/31/18 Amy Hernandez MD [address] [place] [address] PCP - General Internal Medicine 02/01/18 06/03/18 Jean-Paul Carranza MD [address] [place] [address] PCP - General Internal Medicine 06/04/18 11/10/19 Kyle Chavez MD [address] [place] [address] PCP - General Internal Medicine 11/11/19 11/21/22 [facility], [address] [address] PCP - General Internal Medicine 11/22/22 11/24/22 Kyle Chavez MD [address] [place] [address] PCP - General Internal Medicine 11/25/22 Bravo Edwards MD, PHD [address] [place], [place] [phone] Specialist Neurosurgery 06/10/21 documented as of this encounter
--- OUTSIDE RECORDS SUMMARY | 2024-07-10 15:01 | XMS_ITS | Encounter Summary ---
Author Organization [facility] Address [address] [place] [address] Care Team Providers Care Sales Force Administrator Name Role Phone Kyle Chavez MD Primary Care Provider [phone] Bravo Edwards MD, PHD Unavailable [facility], Pcp Primary Care Provider [facility] Kyle Chavez MD Primary Care Provider [phone] Reason for Visit * Reason Comments E-prescribe Rx Request Encounter Details Date Type Department Care Team Description 03/19/2020 Refill Adult Medicine [address] [address] Rosa Hanson PA-C [address] [place] [address] [phone] E-prescribe Rx Request Social History Tobacco Use [...] Telephone Encounter - Elmer Sethi C.M.A. - 03/19/2020 3:54 PM EST Message left for patient to return my call, needs appt. * Telephone Encounter - Tea Hayes - 03/19/2020 3:27 PM EST Patient would like script to be: E-PRESCRIBED/FAXED TO PHARMACY WHEN WAS THE PATIENT'S LAST APPOINTMENT IN ADULT MEDICINE? 01/09/20 WHEN WAS THE LAST TIME THE PATIENT SAW THEIR PCP? na Does patient have an upcoming appointment? no (THE MEDICATION REQUESTED IS ON THE MED [...] current insurance carrier is: Payor: [facility] M[facility] / Plan: [facility] / Product Type: HMO [id number] documented in this encounter Plan of Treatment Not on file documented as of this encounter Visit Diagnoses Not on filedocumented in this encounter Care Teams Sales Force Administrator Relationship Specialty Start Date End Date Kyle Chavez MD [address] [place] [address] PCP - General Internal Medicine 11/11/19 11/21/[address] [address] PCP - General Internal Medicine 11/22/22 11/24/22 Kyle Chavez MD [address] [place] [address] PCP - General Internal Medicine 11/25/22 Bravo Edwards MD, PHD [address] [place] [address] Specialist Neurosurgery 06/10/21 documented as of this encounter
--- OUTSIDE RECORDS SUMMARY | 2024-07-10 15:01 | XMS_ITS ---
Author Organization [facility] Address [address] [facility] [place] [address] Care Team Providers Care Vocational Technical Education Teacher Name Role Phone Cheko Chavez MD Primary Care Provider Julienne Cade Unavailable [phone] Allergies Allergen (clinical drug ingredient) Drug/Non Drug [...] 024 Encounters Encounter Location Date Provider Diagnosis [facility] [address] [address] 11/21/2023 Julienne Pop Tinea unguium B35.1 and Type 2 diabetes mellitus with polyneuropathy E11.42 Assessments Encounter Date Diagnosis (ICD Code) Assessment Notes Treatment Notes Treatment Clinical Notes Section Notes 11/21/2023 Tinea unguium (ICD-10 - B35.1) 11/21/2023 Type 2 diabetes mellitus with polyneuropathy (ICD-10 - E11.42) Plan Of Treatment Next Appt Details Follow Up: 3 Months, Reason: Provider Name:Julienne rock, 08/21/2024 11:00:00 AM, [address] [place] [address], [phone], Procedure Notes * Category Sub-Category Detail Notes [...] as necessary. Patient chooses, no pharmaceutical tx (44777) Keratoma Treatment Parring or Cutting o f Benign Hyperkeratotic Lesion(s) 90044 ( More than 4 Lesions ) - The Benign hyperkeratotic lesions, as described above were pared, and/or cut utilizing a sterile 15 blade, tissue nippers, and/or dremel Progress Notes * Shawn TROTTEROB:1964 (58 yo F)Acc No.[id number]:11/21/2023 Progress Note Patient:?Perla Trotter Provider:?Julienne Pop DPM :1965???Age:58 Y???Sex:Female D ate:11/21/2023 Address:[address] [place] [address], [place] Pcp:Cheko Chavez MD Subjective: * Chief Complaints: [...] as necessary. Patient chooses, no pharmaceutical tx (95377).?Keratoma Treatment:?Parring or Cutting of Benign Hyperkeratotic Lesion(s)?80906 ( More than 4 Lesions ) - The Benign hyperkeratotic lesions, as described above were pared, and/or cut utilizing a sterile 15 blade, tissue nippers, and/or dremel.? * Procedure Codes:?06359 DEBRI DE NAIL, 6 OR MORE, Modifiers: XS 14430 TRIM SKIN LESIONS, OVER 4, Modifiers: XS * Follow Up:?3 Months * Images: * Sign off status: Completed true * Provider:?Julienne Pop DPM Date:? Generated for Lia sigala/Billy/Kelsi on:?07/10/2024 03:01 PM EDT History and Physical Notes * HPI (History [...]
--- OUTSIDE RECORDS SUMMARY | 2024-07-10 15:01 | XMS_ITS | Encounter Summary ---
Author Organization [facility] Address [address] [place] [address] Care Team Providers Care Library Monitor Name Role Phone Kyle Chavez MD Primary Care Provider [phone] Bravo Edwards MD, PHD Unavailable [facility] Pcp Primary Care Provider [facility] Kyle Chavez MD Primary Care Provider [phone] Encounter Details Date Type Department Care Team Description 10/04/2022 [facility] Medical Records [address] [place] [address] Abstract, Provider Social History Tobacco Use Types [...] on filedocumented in this encounter Care Teams Library Monitor Relationship Specialty Start Date End Date Kyle Chavez MD [address] [place] [address] PCP - General Internal Medicine 7/13/20 7/24/23 [facility], Pcp [address] [place] [address] PCP - General Internal Medicine 11/22/22 11/24/22 Kyle Chavez MD [address] [place] [address] PCP - General Internal Medicine 11/25/22 Bravo Edwards MD, PHD [address] [place] [address] Specialist Neurosurgery 06/10/21 documented as of this encounter
--- OUTSIDE RECORDS SUMMARY | 2024-07-10 15:01 | XMS_ITS | Encounter Summary ---
Author Organization [facility] Address [address] [place] [address] Care Team Providers Care Strategic Communications Manager Name Role Phone Jean-Paul Carranza MD Primary Care Provider Unavail able Kyle Chavez MD Primary Care Provider [phone] Bravo Edwards MD, PHD Unavailable [facility], Pcp Primary Care Provider Unavailabl Kyle [place] MD Primary Care Provider Encounter Details Date Type Department Care Team Description 07/30/2018 Orders Only Adult Medicine [address] [phone] Jean-Paul Carranza MD Social History Tobacco Use [...] on filedocumented in this encounter Care Teams Strategic Communications Manager Relationship Specialty Start Date End Date Jean-Paul Carranza MD PCP - General Internal Medicine 06/04/18 11/10/19 Kyle Chavez MD [address] [place] [address] PCP - General Internal Medicine 11/11/19 11/21/22 [facility], Pcp [address] [place] [address] PCP - General Internal Medicine 11/22/22 11/24/22 Kyle Chavez MD [address] [place] [address] PCP - General Internal Medicine 11/25/22 Bravo Edwards MD, PHD [address] [place] [address] Specialist Neurosurgery 06/10/21 documented as of this encounter
--- OUTSIDE RECORDS SUMMARY | 2024-07-10 15:01 | XMS_ITS | Encounter Summary ---
Author Organization [facility] Address [address] [place] [address] Care Team Providers Care Easter Bunny Name Role Phone Amy Hernandez MD Primary Care Provider Unavail Jean-Paul Ortega MD Primary Care Provider Unavail Kyle Camejo MD Primary Care Provider Bravo Edwards MD, PHD Unavailable [facility], Pcp Primary Care Provider UnavailKyle Putnam MD Primary Care Provider [phone] Encounter Details Date Type Department Care Team Description 02/03/2018 Pt. Non Urgent Medic al Question Gastroenterology [address] [address] Caty Vo MD Social History Tobacco Use [...] on filedocumented in this encounter Care Teams Easter Bunny Relationship Specialty Start Date End Date Amy Hernandez MD PCP - General Internal Medicine 02/01/18 06/03/18 Jean-Paul Carranza MD PCP - General Internal Medicine 06/04/18 11/10/19 Kyle Chavez MD [address] [place] [address] PCP - General Internal Medicine 11/11/19 11/21/[address] [address] PCP - General Internal Medicine 11/22/22 11/24/22 Kyle Chavez MD [address] [place] [address] PCP - General Internal Medicine 11/25/22 Bravo Edwards MD, PHD [address] [place] [address] Specialist Neurosurgery 06/10/21 documented as of this encounter
--- OUTSIDE RECORDS SUMMARY | 2024-07-10 15:01 | XMS_ITS | Clinical Summary ---
Author Organization [facility] [address] [place] [address] [place] [address] [place] [address] Phone Care Team Providers Care Cottage Parent Name Role Phone Kyle Chavez MD Primary Care Provider [phone] Allergies Active Allergy Reactions Criticality Noted Date Comments Amoxicillin-Pot Clavulanate 04/02/20 15 Vomiting, diarrhea Can take Amoxicillin or Penicillin Cefaclor 02/25/2005 Angioedema, itchy Flurazepam 05/04/2015 Itching Hydrocodone-Acetaminophen 04/02/2015 Nausea, vomiting Nitrofurantoin 06/27/2019 Nausea, vomiting Medications acetaminophen (TYLENOL) 500 mg capsule Take 2 capsules (1,000 mg total) by mouth every 6 (six) hours if needed for mild pain. 024 Active ammonium lactate (AMLACTIN) 12 % cream Apply topically 1 (one) time each day. Apply to both feet for dry skin and calluses 021 Active buprenorphine -naloxone (SUBOXONE) 8-[address] tablet Place 2 tablets under the tongue. Active estrogens, conjugated (PREMARIN VAGL) Insert into the vagina. Active FREESTYLE LANCETS MISC 1 EA by extracorporeal route 3 (three) times a day. 017 Active blood sugar diagnostic (FreeStyle Lite Strips) test strip 1 each by Other route 3 (three) times a day. 017 Active blood-glucose meter kit 1 Lancet by extracorporeal route 1 (one) time each day. 020 Active incontinence pad, liner, disp (Bladder Control Pads) pad 1 each by Not Applicable route 4 (four) times a day. REGULAR 018 Active lidocaine (LIDODERM) 5 % patch Place 1 patch on the skin 1 (one) time each day. Apply for no more than 12 hours in any 24 hour period 024 Active naproxen (NAPROSYN) 500 mg tablet Take 1 tablet (500 mg total) by mouth 2 (two) times a day with meals. 023 Active nystatin (MYCOSTATIN) cream Apply topically 2 (two) times a day. 024 Active polyethylene glycol (MIRALAX) 17 gram packet Take 17 g by mouth 1 (one) time each day. MIXED WITH WATER OR JUICE 1 TO 2 TIMES DAILY NEEDED FOR CONSTIPATION 021 Active traZODone (DESYREL) 100 mg tablet TAKE ONE TABLET BY MOUTH DAILY AT 5 PM EVERY EVENING 90 tablet 1 025 Active venlafaxine XR (EFFEXOR-XR) 150 mg 24 hr capsule Take 2 capsules (300 mg total) by mouth 1 (one) time each day in the morning. 180 capsule 1 025 Active famotidine (PEPCID) 20 mg tablet Take 1 tablet (20 mg total) by mouth 1 (one) time each day in the morning. 90 tablet 1 025 Active glycopyrrolat e (ROBINUL) 2 mg tablet TAKE ONE TABLET BY MOUTH THREE TIMES DAILY AT 9AM, 1PM AND 5PM 270 tablet 1 025 Active SUMAtriptan (IMITREX) 50 mg tablet Take 1 tablet (50 mg total) by mouth 1 (one) time if needed for migraine. MAY REPEAT DOSE 1 TIME AFTER 2 HOURS, NEEDED. MAX 2 IN 24 HOURS 9 tablet 025 Active diclofenac (VOLTAREN) 1 % topical gel Apply 1 g topically 2 (two) times a day. 100 g 025 Active pregabalin (LYRICA) 150 mg capsule TAKE ONE CAPSULE BY MOUTH THREE TIMES DAILY 270 capsule 025 Active diclofenac (VOLTAREN) 1 % topical gel Apply 1 g topically 2 (two) times a day. 023 2024 Discontinued(R eorder) pregabalin (LYRICA) 150 mg capsule Take 1 capsule (150 mg total) by mouth 3 (three) times a day. 024 2024 Discontinued SUMAtriptan (IMITREX) 50 mg tablet Take 1 tablet (50 mg total) by mouth 1 (one) time if needed for migraine. MAY REPEAT DOSE 1 TIME AFTER 2 HOURS, NEEDED. MAX 2 IN 24 HOURS 022 2024 Discontinued(R eorder) doxycycline (VIBRAMYCIN) 100 mg capsule Take 1 capsule (100 mg total) by mouth 2 (two) times a day for 10 days. Take with at least 8 ounces (large glass) of water, do not lie down for 30 minutes after. Administer 2 hours before or after multivitamins, antacids, or other products containing polyvalent cations (i.e., calcium, iron, magnesium, selenium, zinc). 20 each 025 2024 clotrimazole (LOTRIMIN) 1 % cream Apply topically 2 (two) times a day for 14 days. 15 g 025 2024 acyclovir (ZOVIRAX) 400 mg tablet Take 1 tablet (400 mg total) by mouth 3 (three) times a day for 5 days. 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 Chronic back pain 02/25/2005 Overview (02/07/2024): S/p 2 lumbar fusion, 2 discectomy Resolved Problems Problem Noted Date Diagnosed Date Resolved Date History of heroin abuse 04/02/201512/2023 Overview (02/07/2024): Now on suboxone Encounters Date Type Department Care Team Description 07/09/2024 Telephone Adult Medicine [address] [phone] Marcelina Soria, RN 07/08/2024 Telephone Adult Medicine [address] [phone] Marcelina Soria, RN 07/04/2024 Telephone Adult Medicine [address] [phone] Kyle Chavez MD Weight Loss; Stress; Alopecia 07/04/2024 Telephone Adult Medicine [address] [phone] Kyle Chavez MD Medication Problem 06/19/2024 1:30 PM EST Office Visit Adult Medicine [address] [phone] Julienne Henry PA Cellulitis, umbilical (Primary Dx); Right acute serous otitis media, recurrence not specified 06/18/2024 Telephone Adult Medicine [address] [address] Kyle Chavez MD video call request 06/17/2024 Telephone Adult Medicine [address] [address] Kyle Chavez MD 05/20/2024 Telephone Adult Medicine [address] [address] Abi Blount RN Fitting for DME 05/16/2024 Telephone Adult Medicine [address] [address] Kyle Chavez MD 05/14/2024 [facility] [address] [address] Kyle Chavez MD Fitting for DME (Rollator [...] History Date Comments History of heroin abuse ([facility]) 04/02/2015 Now on suboxone Social History Tobacco [...] your loved ones. For example, child care associate or elderly care for an older adult? [...] 4:00 PM EDT Office Visit Adult Medicine [address] [phone] Abby [place] PA [address] [place] [address] 09/09/2024 2:30 PM EDT Office Visit [address] [phone] Kyle Chavez MD [address] [place] [address] [phone] Health Maintenance Due Date Last Done Comments [...] exists Influenza Vaccine (#1) 2023 3, 04/26/2020, 04/26/2020 Diabetes: Blood Sugar Control Test [...] Routine 06/19/2024 2:02 PM EST Hair thinning HM URINE ALBUMIN CREATININE RATIO Routine 01/25/2024 HEMOGLOBIN [...] and free t3 (06/19/2024 2:02 PM EST) Pathologist [facility] TSH 1.12 0.40 - 4.00 mcIU/mL LAB CHEMISTRY METHOD 06/19/2024 5:04 PM EST [facility] Blood Venous blood specimen / Unknown Venipuncture / Unknown 06/19/2024 2:02 PM EST 06/19/2024 2:02 PM EST Abby RAMSEY LAB BLOOD ORDERABLES Fi nal Result [facility] [address] [place] [address], * Urine Albumin Creatinine Ratio (01/25/2024) Pathologist [facility] Urine Albumin Creatinine Ratio abstracted Historical Provider HEALTH MAINTENANCE Final Result * Hemoglobin A1c (01/25/2024) Pathologist [facility] Hemoglobin A1C 6.3 <=6.5 % Blood Venous blood specimen / Unknown Historical Provider LAB BLOOD ORDERABLES Ally l Result * (ABNORMAL) Lipid panel (01/25/2024) [facility] LDL/HDL Ratio 5(A) 0 - 4 Triglycerides 336(A) 0 - 150 mg/dL Cholesterol 188 0 - 200 mg/dL HDL 35(A) >=40 mg/dL LDL Cholesterol 86 0 - 100 mg/dL Blood Venous blood specimen / Unknown Result [facility] Provider LAB BLOOD ORDERABLES Ally l Result * Diabetes Foot Exam (11/21/2023) [facility] Diabetes: Annual Foot Exam abstracted Result [facility] Provider HEALTH MAINTENANCE Final Result * Annual BMP Blood Test (09/07/2023) [facility] Annual BMP Blood Test abstracted Result [facility] Provider HEALTH MAINTENANCE Final Result * Colonoscopy (04/06/2017) [facility] Colonoscopy no interpretation , abstracted Anatomical Region Laterality Modality Other Result [facility] Provider HEALTH MAINTENANCE Final Result * Hepatitis C Screening (05/28/2015) [facility] Hepatitis C Screening abstracted Result [facility] Provider HEALTH MAINTENANCE Final Result * Pap Smear (10/09/2013) [facility] Pap smear no interpretation , abstracted Result [facility] Provider HEALTH MAINTENANCE Final Result from Last 3 Months or Most Recently Relevant to Health Maintenance Insurance [facility] MEDICARE Member Subscriber Plan / Payer (Ef fective 2017-Present) Name:Perla Dixon Relation to Subscriber:Self Name:Perla Dixon Payer ID:[id number] Group ID:[id number] Type:Not on file Address: [place] [address] [place] [address] Care Teams Cottage Parent Relationship Specialty Start Date End Date Kyle Chavez MD [address] [place] [address] PCP - General Internal Medicine 06/18/24
--- OUTSIDE RECORDS SUMMARY | 2024-07-10 15:01 | XMS_ITS | Encounter Summary ---
Author Organization [facility] Address [address] [place] [address] Care Team Providers Care Press Machine Feeder Name Role Phone Jean-Paul Carranza MD Primary Care Provider Unavail Kyle Camejo MD Primary Care Provider [phone] Bravo Edwards MD, PHD Unavailable [facility], Pcp Primary Care Provider UnavailyKle Putnam MD Primary Care Provider [phone] Reason for Visit * Reason Onset Date Comments refill request 10/08/2019 Encounter Details Date Type Department Care Team Description 10/08/2019 Refill Adult Medicine [address] [address] Jean-Paul Carranza MD refill request Social History [...] N/A Patients current insurance carrier is: Payor: [employer] [facility] MCR / Plan: [facility] / Product Type: HMO [id number] documented in this encounter Plan of Treatment Not on file documented as of this encounter Visit Diagnoses Diagnosis Plantar fasciitis of right foot Plantar fascial fibromatosis Pain in right foot Pain in limb documented in this encounter Care Teams Press Machine Feeder Relationship Specialty Start Date End Date Jean-Paul Carranza MD PCP - General Internal Medicine 06/04/18 11/10/19 Kyle Chavez MD [address] [place] [address] PCP - General Internal Medicine 11/11/19 11/21/[address] [address] PCP - General Internal Medicine 11/22/22 11/24/22 Kyle Chavez MD [address] [place] [address] PCP - General Internal Medicine 11/25/22 Bravo Edwards MD, PHD [address] [place] [address] Specialist Neurosurgery 06/10/21 documented as of this encounter
--- OUTSIDE RECORDS SUMMARY | 2024-07-10 15:01 | XMS_ITS | Encounter Summary ---
Author Organization [facility] Address [address] [place] [address] Care Team Providers Care Waterproof Material Folder Name Role Phone Amy Hernandez MD Primary Care Provider Unavail Jean-Paul Ortega MD Primary Care Provider Unavail Kyle Camejo MD Primary Care Provider [phone] Bravo Edwards MD, PHD Unavailable [facility] Pcp Primary Care Provider UnavailKyle Putnam MD Primary Care Provider [phone] Reason for Visit * Reason Onset Date Comments refill request 04/23/2018 Encounter Details Date Type Department Care Team Description 04/23/2018 Refill Podiatry - [address] [address] Citlali Madrid DPM refill request Social History Tobacco Use Types [...] encounter Miscellaneous Notes * Telephone Encounter - Sierra Byrd - 04/26/2018 9:01 AM EST Patient called today and asked for refills for this medication. She states she has only taken the medication for 1 month straight and is supposed to take the medication for three months, so she has not completed the medication. She has asked for us to look into the prior auth for this medication aswell. Please review and advise Thank you * Telephone Encounter - Citlali Madrid DPM - 04/25/2018 7:00 AM EST Patient completed medication * Telephone Encounter - Sierra Byrd - 04/23/2018 11:56 AM EST Patient would like script to be: E-PRESCRIBED/FAXED TO PHARMACY When was the patients last office visit in Adult Medicine?: When was the last time the patient saw their PCP? Does patient have an upcoming appointment? (THE MEDICATION IS NOT ON THE MED LIST AND IS IDENTIFIED BELOW): {MED LIST:62831) Med name: Itraconazole Dosage: 100mg # of tablets: 60 Local pharmacy with request for 30 -day supply Instructions: Did you check the pharmacy information above?: YES Patients current insurance carrier: Payor: [facility] / Plan: [facility] INSURANCE / Product Type: OTHER documented in this encounter Plan of Treatment Not on file documented as of this encounter Visit Diagnoses Not on filedocumented in this encounter Care Teams Waterproof Material Folder Relationship Specialty Start Date End Date Amy Hernandez MD PCP - General Internal Medicine 02/01/18 06/03/18 Jean-Paul Carranza MD PCP - General Internal Medicine 06/04/18 11/10/19 Kyle Chavez MD [address] [place] [address] PCP - General Internal Medicine 11/11/19 11/21/[address] [place] [address] PCP - General Internal Medicine 11/22/22 11/24/22 Kyle Chavez MD [address] [place] [address] PCP - General Internal Medicine 11/25/22 Bravo Edwards MD, PHD [address] [place] [address] Specialist Neurosurgery 06/10/21 documented as of this encounter
--- OUTSIDE RECORDS SUMMARY | 2024-07-10 15:01 | XMS_ITS | Encounter Summary ---
Author Organization [facility] Address [address] [facility] [address] [place] [address] Care Team Providers Care Professional Driver Name Role Phone Unavailable Primary Care Provider Unavailabl e Encounter Details Date Type Department Care Team (Late st Contact Info) Description 03/25/2024 Orders Only [facility] [address] [place] [address] Provider, Historical, Social History Tobacco Use Types [...]
--- OUTSIDE RECORDS SUMMARY | 2024-07-10 15:01 | XMS_ITS | Encounter Summary ---
Author Organization [facility] Address [address] [place] [address] Care Team Providers Care Cdl Driver Name Role Phone Jean-Paul Carranza MD Primary Care Provider Unavail Kyle Camejo MD Primary Care Provider [phone] Bravo Edwards MD, PHD Unavailable [facility], Pcp Primary Care Provider UnavailKyle Putnam MD Primary Care Provider Reason for Visit * Reason Onset Date Comments medication problems 10/11/2019 Encounter Details Date Type Department Care Team Description 10/11/2019 Telephone Adult Medicine [address] [address] Rosa Hanson PA-C [address] [place] [address] [id number] medication problems Social History Tobacco Use Types [...] changing dose * Telephone Encounter - Nehal Espinoza - 10/11/2019 10:30 AM EDT Who is [...] limb documented in this encounter Care Teams Cdl Driver Relationship Specialty Start Date End Date Jean-Paul Carranza MD PCP - General Internal Medicine 06/04/18 11/10/19 Kyle Chavez MD [address] [place] [address] PCP - General Internal Medicine 11/11/19 11/21/22 [facility], Pcp [address] [place] [address] PCP - General Internal Medicine 11/22/22 11/24/22 Kyle Chavez MD [address] [place] [address] PCP - General Internal Medicine 11/25/22 Bravo Edwards MD, PHD [address] [place] [address] Specialist Neurosurgery 06/10/21 documented as of this encounter
--- OUTSIDE RECORDS SUMMARY | 2024-07-10 15:01 | XMS_ITS | Encounter Summary ---
Author Organization [facility] Address [address] [place] [address] Care Team Providers Care Pulp Plant Supervisor Name Role Phone Jean-Paul Carranza MD Primary Care Provider Unavail able Kyle Chavez MD Primary Care Provider [phone] Bravo Edwards MD, PHD Unavailable [facility], Pcp Primary Care Provider Unavailabl Kyle Washington MD Primary Care Provider [phone] Encounter Details Date Type Department Care Team Description 06/19/2018 Orders Only Adult Medicine [address] [phone] Jean-Paul Carranza MD Social History Tobacco Use [...] on filedocumented in this encounter Care Teams Pulp Plant Supervisor Relationship Specialty Start Date End Date Jean-Paul Carranza MD PCP - General Internal Medicine 06/04/18 11/10/19 Kyle Chavez MD [address] [place] [address] PCP - General Internal Medicine 11/11/19 11/21/22 [facility], Pcp [address] [place] [address] PCP - General Internal Medicine 11/22/22 11/24/22 Kyle Chavez MD [address] [place] [address] PCP - General Internal Medicine 11/25/22 Bravo Edwards MD, PHD [address] [place] [address] Specialist Neurosurgery 06/10/21 documented as of this encounter
--- OUTSIDE RECORDS SUMMARY | 2024-07-10 15:01 | XMS_ITS | Encounter Summary ---
Author Organization [facility] Address [address] [place] [address] Care Team Providers Care Student Nurse Name Role Phone Armand Hernandez MD Primary Care Provider Unavail Jean-Paul Ortega MD Primary Care Provider Unavail Kyle Camejo MD Primary Care Provider [phone] Bravo Edwards MD, PHD Unavailable [facility] Pcp Primary Care Provider UnavailKyle Putnam MD Primary Care Provider [phone] Reason for Visit * Reason Onset Date Comments Provider Call Back 05/31/2018 Medication 05/31/2018 Encounter Details Date Type Department Care Team Description 05/31/2018 Telephone Adult Medicine [address] [address] Armand Hernandez MD Provider Call Back; Medication Social History Tobacco Use Types Packs/Day Years [...] encounter Miscellaneous Notes * Telephone Encounter - Trista Law - 05/31/2018 1:11 PM EST Spoke to patient and she asked to change her pcp. She wanted to see someone about her diabetes. Herformer provider will not refill her ativan and Dr. Reveles will not either. She does have a new psychiatrist visit for 07/20/18. She is looking for ativan until it is taken over by her psychiatrist. We booked her with Dr. Carranza, she is familiar with him and likes that he is an recycling attendant. She is contacting her insurance and I did tell her that we cannot make any provider refill her medication, however she can discuss with new pcp. * Telephone Encounter - Trista Law - 05/31/2018 10:27 AM EST I will call this patient. * Telephone Encounter - Marina Vincent R.N. - 05/31/2018 10:05 AM EST I spoke with pt , she states she spoke with prema but we do not know who this is, she states she has to have ativan or she will have seizures, she has been taking ativan for 8 years and cannot stop now, her previous prescribe discharged her due to no shows and she is waiting for a new psychiatrist who will see her july 18. Dr reveles has been suggesting that dr eugene give her a taper dose until she is seen by the new psychiatrist but that she will not start pt on ativan Pt states she must have this and she needs it in the next week, she cannot understand why this willnot be filled (of note pt has hx of substance abuse and is currently taking suboxone ) I again explained that her former psychiatrist should taper this dose as she has been on high dose and will needto be tapered Pt also states she was refused a request to see endocrine and that her diabetes is out of control and nothing has been done about this ( her A1C has improved and her diabetes has been address in eachvisit ) . She also states she never sees her PCP.pt has been seen x 3 since transferring to the care team and has been seen x 2 by iwona lockhart and x [address] reveles . And she has a f/u with dr reveles scheduled Pt wants these concerns addressed by pt services * Telephone Encounter - Melinda Dash - 05/31/2018 9:47 AM EST Patient calling again keeps asking to speak with Prema again unsure as to why patient keeps asking for Prema asked Prema in [facility] she hasnt spoke to this patient. Per message below patient has been informed by nurse on Dr. Reveles's answer will transfer to patient services. * Telephone Encounter - Marina Vincent R.N. - 05/31/2018 8:45 AM EST Pt had 30 day supply filled 05/07 ( 90 pills ) pt is advised to use meds carefully until she can be seen by her psychiatrist to refill the Rx , pt states she must have these meds now to avid seizures, she takes TID every day for seizures . Pt is aware these will not be filled by dr reveles, She hung up the phone * Telephone Encounter - Melinda Dash - 05/31/2018 8:34 AM EST Caller requesting call back from provider: Is the caller the patient? YES If caller is not the patient, what is the callers name? N/A Callers relationship to patient? N/A If person calling is not the patient themselves, is there a verbal release in FYI or permanent comments for this person: YES Reason for call back: Patient requesting to speak to Prema states that she needs to speak to ARMAND REVELES or nurse in regards to filling her psych medications. States that she currently doesn't see her psych has an upcoming appointment with her new able seaman on 06/06/18 but if she doesn't get thisfilled she will have seizures please advise, patient also called in regards to refilling her medications Caller offered to speak with the nurse for assistance: YES Response: Patient offered to speak with nurse for assistance and patient agreed. Message forwarded to nurse. documented in this encounter Plan of Treatment Not on file documented as of this encounter Visit Diagnoses Not on filedocumented in this encounter Care Teams Student Nurse Relationship Specialty Start Date End Date Armand Hernandez MD PCP - General Internal Medicine 02/01/18 06/03/18 Jean-Paul Carranza MD PCP - General Internal Medicine 06/04/18 11/10/19 Kyle Chavez MD [address] [place] [address] PCP - General Internal Medicine 11/11/19 11/21/22 [place] [id number] PCP - General Internal Medicine 11/22/22 11/24/22 Kyle Chavez MD [address] [place] [address] PCP - General Internal Medicine 11/25/22 Bravo Edwards MD, PHD [address] [place], [place] [phone] Specialist Neurosurgery 06/10/21 documented as of this encounter
--- OUTSIDE RECORDS SUMMARY | 2024-07-10 15:01 | XMS_ITS | Encounter Summary ---
Author Organization [facility] Address [address] [place] [address] Care Team Providers Care Textile Cutting Machine Operator Name Role Phone Kyle Chavez MD Primary Care Provider [phone] Bravo Edwards MD, PHD Unavailable [facility], Pcp Primary Care Provider [facility] Kyle Chavez MD Primary Care Provider [phone] Encounter Details Date Type Department Care Team Description 10/12/2020 Refill Adult Medicine [address] [phone] Kyle Chavez MD [address] [place] [address] [phone] Social History Tobacco Use Types Packs/Day Years [...] on filedocumented in this encounter Care Teams Textile Cutting Machine Operator Relationship Specialty Start Date End Date Kyle Chavez MD [address] [place] [address] [phone] PCP - General Internal Medicine 11/11/19 11/21/22 [facility] Pcp [address] [place] [address] PCP - General Internal Medicine 11/22/22 11/24/22 Kyle Chavez MD [address] [place] [address] PCP - General Internal Medicine 11/25/22 Bravo Edwards MD, PHD [address] [place] [address] Specialist Neurosurgery 06/10/21 documented as of this encounter
--- OUTSIDE RECORDS SUMMARY | 2024-07-10 15:01 | XMS_ITS | Encounter Summary ---
Author Organization [facility] Address [address] [place] [address] Care Team Providers Care Risk Intern Name Role Phone Lucia Duff MD Primary Care Provider Amy Maldonado MD Primary Care Provider Unavail able Jean-Paul Carranza MD Primary Care Provider Unavail able Kyle Chavez MD Primary Care Provider [phone] Bravo Edwards MD, PHD Unavailable [facility], Pcp Primary Care Provider Unavailabl e Kyle Chavez MD Primary Care Provider [phone] Reason for Referral * EXTERNAL (Routine) - Authorized/Booked Specialty Diagnoses / Procedures Referred By Contact Referred To Contact Oncology/Hematology Procedures REFERRAL TO ONCOLOGY/HEMATOLOGY Lucia Duff MD [address] [place] [address] Ramon Uribe MD [address] [place] [address] [address] [facility] [place] [address] Referral ID Status Reason Start Date Expiration Date V isits Requested Visits Authorized SEE NOTE Authorized/B ooked 04/22/2015 07/28/2015 1 1 Reason for Visit * Reason Onset Date Comments Provider Call Back 04/21/2015 Encounter Details Date Type Department Care Team Description 04/21/2015 Telephone Adult [address] [phone] Lucia Duff MD Provider Call Back Social History Tobacco Use Types Packs/Day Years Used Date Smoking Tobacco: Every Day Cigarettes 0.3 Alcohol Use Standard Drinks/Week Comments Not Asked 0 (1 standard drink = 0.6 oz pur e alcohol) Sex Assigned at Date Recorded Female 09/28/2021 7:19 AM E DT Job Start Date Occupation Industry Not on file Not on file Not on file documented as of this encounter Miscellaneous Notes * Telephone Encounter - Aundrea Stewart L.P.N. - 04/22/2015 9:45 AM EST To ref * Telephone Encounter - Lucia Duff - 04/22/2015 8:02 AM EST Referal done again. * Telephone Encounter - Seth VázquezPAlexanderNAlexander - 04/21/2015 2:00 PM EST Please see message from [facility] oncology and advise * Telephone Encounter - Ceci Sagastume - 04/21/2015 12:03 PM EST Caller requesting call back from provider: Is the caller the patient? NO If caller is not the patient, what is the callers name? [facility] [place] oncology Callers relationship to patient? N/A If person calling is not the patient themselves, is there a verbal release in FYI or permanent comments for this person: NO Reason for call back: [facility] oncology calling regarding they have a referral for patient but they donot have a obgyn oncologist, patient would have to be referred to [facility] , please call her back. Caller offered to speak with the nurse for assistance: YES Response: Patient offered to speak with nurse for assistance and patient agreed. Message forwarded to nurse. documented in this encounter Plan of Treatment Not on file documented as of this encounter Visit Diagnoses Not on filedocumented in this encounter Care Teams Risk Intern Relationship Specialty Start Date End Date Lucia Duff MD PCP - General Internal Medicine 02/12/15 01/31/18 Amy Hernandez MD PCP - General Internal Medicine 02/01/18 06/03/18 Jean-Paul Carranza MD PCP - General Internal Medicine 06/04/18 11/10/19 Kyle Chavez MD [address] [place] [address] PCP - General Internal Medicine 11/11/19 11/21/[address] [address] PCP - General Internal Medicine 11/22/22 11/24/22 Kyle Chavez MD [address] [place] [address] PCP - General Internal Medicine 11/25/22 Bravo Edwards MD, PHD [address] [place], [place] [phone] Specialist Neurosurgery 06/10/21 documented as of this encounter
--- OUTSIDE RECORDS SUMMARY | 2024-07-10 15:01 | XMS_ITS | Encounter Summary ---
Author Organization [facility] Address [address] [place] [address] Care Team Providers Care Zoology Teacher Name Role Phone Lucia Duff MD Primary Care Provider Amy Maldonado MD Primary Care Provider Unavail able Jean-Paul Carranza MD Primary Care Provider Unavail able Kyle Chavez MD Primary Care Provider [phone] Bravo Edwards MD, PHD [facility]available [facility] Primary Care Provider Unavailabl Kyle Washington MD Primary Care Provider [phone] Encounter Details Date Type Department Care Team Description 07/03/2015 Business Doc Medical Records [address] [place] [id number] Abstract, Provider Social History Tobacco Use Types [...] on filedocumented in this encounter Care Teams Zoology Teacher Relationship Specialty Start Date End Date Lucia Duff MD PCP - General Internal Medicine 02/12/15 01/31/18 Amy Hernandez MD PCP - General Internal Medicine 02/01/18 06/03/18 Jean-Paul Carranza MD PCP - General Internal Medicine 06/04/18 11/10/19 Kyle Chavez MD [address] [place] [address] PCP - General Internal Medicine 11/11/19 11/21/22 [facility], Pcp [address] [place], [place] [phone] PCP - General Internal Medicine 11/22/22 11/24/22 Kyle Chavez MD [address] [place] [address] PCP - General Internal Medicine 11/25/22 Bravo Edwards MD, PHD [address] [place] [address] Specialist Neurosurgery 06/10/21 documented as of this encounter
--- OUTSIDE RECORDS SUMMARY | 2024-07-10 15:02 | XMS_ITS | Encounter Summary ---
Author Organization [facility] [place] [address] Care Team Providers Care Sheetfed Press Operator Name Role Phone Kyle Chavez MD Primary Care Provider [phone] Encounter Details Date Type Department Care Team ([facility] st Contact Info) Description 06/17/2024 Telephone Adult Medicine [facility] [address] [place] [phone] Kyle Chavez MD [address] [place] [address] Social History Tobacco Use Types Packs/Day Years [...] for your loved ones. For example, child and adolescent psychologist or elderly care for an older adult? [...] 4:00 PM EDT Office Visit Adult Medicine [address] [phone] Abby Beach PA [address] [place] [address] 09/09/2024 2:30 PM EDT Office Visit Adult Medicine [address] [phone] Kyle Chavez MD [address] [place] [address] [phone] documented as of this encounter Visit Diagnoses Not on filedocumented in this encounter Care Teams Sheetfed Press Operator Relationship Specialty Start Date End Date Kyle Chavez MD [address] [place] [address] PCP - General Internal Medicine 06/18/24 documented as of this encounter
--- OUTSIDE RECORDS SUMMARY | 2024-07-10 15:02 | XMS_ITS | Encounter Summary ---
Author Organization [facility] Address [address] [place] [address] Care Team Providers Care Bus Inspector Name Role Phone Kyle Chavez MD Primary Care Provider [phone] Bravo Edwards MD, PHD Unavailable [facility], Pcp Primary Care Provider [facility] Kyle Chavez MD Primary Care Provider Encounter Details Date Type Department Care Team Description 09/14/2022 Pt. Non Urgent Medical Question Adult Medicine [address] [phone] Kyle Chavez MD [address] [place] [address] [phone] Social History Tobacco Use Types Packs/Day Years [...] on filedocumented in this encounter Care Teams Bus Inspector Relationship Specialty Start Date End Date Kyle Chavez MD [address] [place] [address] PCP - General Internal Medicine 11/11/19 11/21/22 [facility], Pcp [address] [place], [place] [phone] PCP - General Internal Medicine 11/22/22 11/24/22 Kyle Chavez MD [address] [place] [address] PCP - General Internal Medicine 11/25/22 Bravo Edwards MD, PHD [address] [place], [place] [phone] Specialist Neurosurgery 06/10/21 documented as of this encounter
--- OUTSIDE RECORDS SUMMARY | 2024-07-10 15:02 | XMS_ITS | Encounter Summary ---
Author Organization [facility] Address [address] [place] [address] Care Team Providers Care Cardiovascular Sonographer Name Role Phone Kyle Chavez MD Primary Care Provider [phone] Bravo Edwards MD, PHD Unavailable [facility], Pcp Primary Care Provider [facility] Kyle Chavez MD Primary Care Provider [phone] Encounter Details Date Type Department Care Team Description 03/08/2022 Pt. Non Urgent Medical Question Adult Medicine [address] [phone] Kyle Chavez MD [address] [place] [address] [phone] Social History Tobacco Use Types Packs/Day Years [...] Telephone Encounter - Damaris Nunez M.A. - 03/09/2022 7:09 AM ESTFrom: Perla Dixon To: Jose Chavez Sent: 03/08/2022 4:56 PM EST Subject: [facility] Don Chavez! I need to let you know that the [facility] that [facility] use right next to the [place] at [address] [facility] is closing tomorrow so please send my medications to [facility] at [address] [place] [address]. They have transferred all my information to that store. Thank you verymuch! If you have any questions please c all me at [phone]. documented in this encounter Plan of Treatment Not on file documented as of this encounter Visit Diagnoses Not on filedocumented in this encounter Care Teams Cardiovascular Sonographer Relationship Specialty Start Date End Date Kyle Chavez MD [address] [place] [address] PCP - General Internal Medicine 11/11/19 11/21/22 [facility], Pcp [address] [place] [address] PCP - General Internal Medicine 11/22/22 11/24/22 Kyle Chavez MD [address] [place] [address] PCP - General Internal Medicine 11/25/22 Bravo Edwards MD, PHD [address] [place], [place] [phone] Specialist Neurosurgery 06/10/21 documented as of this encounter
--- OUTSIDE RECORDS SUMMARY | 2024-07-10 15:02 | XMS_ITS | Encounter Summary ---
Author Organization [facility] Address [address] [place] [address] Care Team Providers Care Farm Management Adviser Name Role Phone Kyle Chavez MD Primary Care Provider [phone] Bravo Edwards MD, PHD [facility]available [facility], [facility] Primary Care Provider Unavailabl e Kyle Chavez MD Primary Care Provider [phone] Encounter Details Date Type Department Care Team Description 12/30/2021 Pt. Non Urgent Medical Question [facility] Medical [facility] Neurosurgery [place] [address] [place] [address] Bravo Edwards MD, PHD Social [...] on filedocumented in this encounter Care Teams Farm Management Adviser Relationship Specialty Start Date End Date Kyle Chavez MD [address] [place] [address] PCP - General Internal Medicine 11/11/19 11/21/22 [facility] Pcp [address] [place] [address] PCP - General Internal Medicine 11/22/22 11/24/22 Kyle Chavez MD [address] [place] [address] PCP - General Internal Medicine 11/25/22 Bravo Edwards MD, PHD [address] [place] [address] Specialist Neurosurgery 06/10/21 documented as of this encounter
--- OUTSIDE RECORDS SUMMARY | 2024-07-10 15:02 | XMS_ITS | Encounter Summary ---
Author Organization [facility] Address [address] [place] [address] Care Team Providers Care Ballistician Name Role Phone Lucia Duff MD Primary Care Provider Amy Maldonado MD Primary Care Provider Unavail able Jean-Paul Carranza MD Primary Care Provider Unavail able Kyle Chavez MD Primary Care Provider [phone] Bravo Edwards MD, PHD Unavailable [facility], Pcp Primary Care Provider Unavailabl Kyle Washington MD Primary Care Provider [phone] Reason for Visit * Reason Onset Date Comments medication problems 03/31/2017 Encounter Details Date Type Department Care Team Description 03/31/2017 Telephone Adult [address] [address] Lucia Duff MD medication problems Social History [...] EST Who is calling? A pharmacist: Pharmacy: [facility] Pharmacist Name: Pharmacy Name of the medication [...] on filedocumented in this encounter Care Teams Ballistician Relationship Specialty Start Date End Date Lucia Duff MD PCP - General Internal Medicine 02/12/15 01/31/18 Amy Hernandez MD PCP - General Internal Medicine 02/01/18 06/03/18 Jean-Paul Carranza MD PCP - General Internal Medicine 06/04/18 11/10/19 Kyle Chavez MD [address] [place] [address] PCP - General Internal Medicine 11/11/19 11/21/22 [facility], Pcp [address] [place] [address] PCP - General Internal Medicine 11/22/22 11/24/22 Kyle Chavez MD [address] [place] [address] PCP - General Internal Medicine 11/25/22 Bravo Edwards MD, PHD [address] [place] [address] Specialist Neurosurgery 06/10/21 documented as of this encounter
--- OUTSIDE RECORDS SUMMARY | 2024-07-10 15:02 | XMS_ITS | Encounter Summary ---
Author Organization [facility] Address [address] [place] [address] Care Team Providers Care Digital Retoucher Name Role Phone Bravo Edwards MD, PHD Unavailable [facility] Kyle Chavez MD Primary Care Provider [phone] Encounter Details Date Type Department Care Team Description 11/17/2023 [facility] Medical [facility] Neurosurgery [place] [address] [place] [address] Bravo Edwards MD, PHD Social [...] on filedocumented in this encounter Care Teams Digital Retoucher Relationship Specialty Start Date End Date Kyle Chavez MD [address] [place] [address] [id number] PCP - General Internal Medicine 11/25/22 Bravo Edwards MD, PHD Specialist Neurosurgery 06/10/21 documented as of this encounter
--- OUTSIDE RECORDS SUMMARY | 2024-07-10 15:02 | XMS_ITS | Encounter Summary ---
Author Organization [facility] [place] [address] Care Team Providers Care Radiation Therapy Technologist Name Role Phone Kyle Chavez MD Primary Care Provider [phone] Encounter Details Date Type Department Care Team ([facility] Contact Info) Description 07/09/2024 Telephone Adult Medicine [address] [place] [phone] Marcelina Soria, RN Social History Tobacco Use Types Packs/Day Years [...] ed Within the last 3 months, ho isamar many times did you visit the emergency [...] care for your loved ones. For example, children counselor or elderly care for an older adult? [...] Progress Notes * Marcelina Soria RN - 07/09/2024 12:01 PM EDT Called pt and encouraged her to call her insurance company to find out what ENT office is covered. She was instructed to call us once she know the name of the provided she wants to see, their address. She is in agreement with this plan. She was also inquiring about her dermatology referral; informed pt the referral was authorized and gave her the address and phone number; Christiano Matias [address] [place] [address] . She was instructed to call them for an appointment. She is in agreement with this plan. documented in this encounter Plan of Treatment Upcoming Encounters Date Type Department Care Team (Late st Contact Info) Description 07/18/2024 4:00 PM EDT Office Visit [address] [phone] Abby Beach PA [address] [place] [address] 09/09/2024 2:30 PM EDT Office Visit [address] [phone] Kyle Chavez MD [address] [place] [address] [phone] documented as of this encounter Visit Diagnoses Not on filedocumented in this encounter Additional Health Concerns Assessment Noted Time PHQ-9 Depression Total Score: 16 025 3:49 PM EST documented as of this encounter Care Teams Radiation Therapy Technologist Relationship Specialty Start Date End Date Kyle Chavez MD [address] [place] [address] [phone] PCP - General Internal Medicine 06/18/24 documented as of this encounter
--- OUTSIDE RECORDS SUMMARY | 2024-07-10 15:02 | XMS_ITS | Encounter Summary ---
Author Organization [facility] Address [address] [place] [address] Care Team Providers Care Kitchen And Bath Designer Name Role Phone Lucia Duff MD Primary Care Provider Amy Maldonado MD Primary Care Provider Unavail able Jean-Paul Carranza MD Primary Care Provider Unavail able Kyle Chavez MD Primary Care Provider [phone] Bravo Edwards MD, PHD Unavailable [facility], Pcp Primary Care Provider Unavailabl Kyle Washington MD Primary Care Provider Encounter Details Date Type Department Care Team Description 10/25/2017 Mechanical Research Engineer Report Medical Records [address] [place] [address] Ramon Uribe MD [address] [place] [address] [address] [facility] [place] [address] Social History Tobacco Use Types Packs/Day Years [...] on filedocumented in this encounter Care Teams Kitchen And Bath Designer Relationship Specialty Start Date End Date Lucia Duff MD PCP - General Internal Medicine 02/12/15 01/31/18 Amy Hernandez MD PCP - General Internal Medicine 02/01/18 06/03/18 Jean-Paul Carranza MD PCP - General Internal Medicine 06/04/18 11/10/19 Kyle Chavez MD [address] [place] [address] PCP - General Internal Medicine 11/11/19 11/21/22 [facility], Pcp [address] [place], [place] [phone] PCP - General Internal Medicine 11/22/22 11/24/22 Kyle Chavez MD [address] [place] [address] PCP - General Internal Medicine 11/25/22 Bravo Edwards MD, PHD [address] [place] [address] Specialist Neurosurgery 06/10/21 documented as of this encounter
--- OUTSIDE RECORDS SUMMARY | 2024-07-10 15:02 | XMS_ITS | Encounter Summary ---
Author Organization [facility] Address [address] [place] [address] Care Team Providers Care Pillow Filler Name Role Phone Bravo Edwards MD, PHD Unavailable Unava Kyle King MD Primary Care Provider [phone] Encounter Details Date Type Department Care Team Description 02/12/2024 Pt. Non Urgent Medical Question Adult Medicine [address] [phone] Kyle Chavez MD [address] [place] [address] Social History Tobacco Use Types Packs/Day Years [...] Telephone Encounter - Carmina Serrano L.P.N. - 02/12/2024 11:47 AM EDTFrom: Perla BellZack To: Jose Chavez Sent: 02/12/2024 9:17 AM EDT Subject: Meds Hello Dr Chavez! I am now getting my medications through [facility]. It will make it a lot easier for me. They are waiting for the medication prescriptions so they can mail them all out. I am due for myLyrica on Monday. Could you please give them the information they need so I can receive them in atimely manner? I sent out a message earlier b ut it said the sql server bi developer was down so I sent this messagesorry if you got two of the same message! Thank you very much if you have any questions please feelfree to call me at [phone] documented in this encounter Plan of Treatment Not on file documented as of this encounter Visit Diagnoses Not on filedocumented in this encounter Care Teams Pillow Filler Relationship Specialty Start Date End Date Kyle Chavez MD [address] [place] [address] PCP - General Internal Medicine 11/25/22 Bravo Edwards MD, PHD Specialist Neurosurgery 06/10/21 documented as of this encounter
--- OUTSIDE RECORDS SUMMARY | 2024-07-10 15:02 | XMS_ITS | Encounter Summary ---
Author Organization [facility] Address [address] [place] [address] Care Team Providers Care Burr Grinder Name Role Phone Kyle Chavez MD Primary Care Provider [phone] Bravo Edwards MD, PHD Unavailable [facility], Pcp Primary Care Provider [facility] Kyle Chavez MD Primary Care Provider [phone] Encounter Details Date Type Department Care Team Description 10/06/2021 Pt. Non Urgent Medical Question Adult Medicine [address] [phone] Kyle Chavez MD [address] [place] [address] [phone] Social History Tobacco Use Types Packs/Day Years [...] fill out for my housing at the front edger so I can pick it up today around 1:00 p.m.. Thank you. documented in this encounter Plan of Treatment Not on file documented as of this encounter Visit Diagnoses Not on filedocumented in this encounter Care Teams Burr Grinder Relationship Specialty Start Date End Date Kyle Chavez MD [address] [place] [address] PCP - General Internal Medicine 11/11/19 11/21/22 [facility], Pcp [address] [place] [address] PCP - General Internal Medicine 11/22/22 11/24/22 Kyle Chavez MD [address] [place] [address] PCP - General Internal Medicine 11/25/22 Bravo Edwards MD, PHD [address] [place], [place] [phone] Specialist Neurosurgery 06/10/21 documented as of this encounter
--- OUTSIDE RECORDS SUMMARY | 2024-07-10 15:02 | XMS_ITS | Encounter Summary ---
Author Organization [facility] Address [address] [place] [address] Care Team Providers Care Legal Officer Name Role Phone Kyle Chavez MD Primary Care Provider [phone] Bravo Ewdards MD, PHD Unavailable [facility], Pcp Primary Care Provider [facility] Kyle Chavez MD Primary Care Provider [phone] Encounter Details Date Type Department Care Team Description 02/11/2022 Night Triage Doc Medical Records [address] [place] [address] Abstract, Provider Social History Tobacco Use Types [...] on filedocumented in this encounter Care Teams Legal Officer Relationship Specialty Start Date End Date Kyle Chavez MD [address] [place] [address] [phone] PCP - General Internal Medicine 11/11/19 11/21/22 [facility], Pcp [address] [place] [address] PCP - General Internal Medicine 11/22/22 11/24/22 Kyle Chavez MD [address] [place] [address] PCP - General Internal Medicine 11/25/22 Bravo Edwards MD, PHD [address] [place] [address] Specialist Neurosurgery 06/10/21 documented as of this encounter
--- OUTSIDE RECORDS SUMMARY | 2024-07-10 15:02 | XMS_ITS | Encounter Summary ---
Author Organization [facility] Address [address] [place] [address] Care Team Providers Care Driving Instructor Name Role Phone Kyle Chavez MD Primary Care Provider [phone] Bravo Edwards MD, PHD Unavailable [facility], Pcp Primary Care Provider [facility]ailmult[facility]are [facility] Kyle Washington MD Primary Care Provider [phone] Encounter Details Date Type Department Care Team Description 03/15/2022 Pt. Non Urgent Medical Question Adult Medicine [address] [address] Kyle Chavez MD [address] [place] [address] [phone] Social History Tobacco Use Types Packs/Day Years [...] as close and it switched over to [facility] [place]. My problem is when they transferred all [...] home when my mom goes in the fdc! All I'm asking for is six tablets of lorazepam till I can [facility] I beg of you could you please [...] on filedocumented in this encounter Care Teams Driving Instructor Relationship Specialty Start Date End Date Kyle Chavez MD [address] [place] [address] PCP - General Internal Medicine 11/11/19 11/21/22 [facility], Pcp [address] [place] [address] PCP - General Internal Medicine 11/22/22 11/24/22 Kyle Chavez MD [address] [place] [address] PCP - General Internal Medicine 11/25/22 Bravo Edwards MD, PHD [address] [place], [place] [phone] Specialist Neurosurgery 06/10/21 documented as of this encounter
--- OUTSIDE RECORDS SUMMARY | 2024-07-10 15:02 | XMS_ITS | Encounter Summary ---
Author Organization [facility] Address [address] [place] [address] Care Team Providers Care Outside Contractor Sales Name Role Phone Kyle Chavez MD Primary Care Provider [phone] Reason for Visit * Reason Onset Date Comments video call request 06/18/2024 Encounter Details Date Type Department Care Team ([facility] Contact Info) Description 06/18/2024 Telephone Adult Medicine [address] [phone] Kyle Chavez MD [address] [place] [address] video call request Social History Tobacco Use [...] your loved ones. For example, child and family services worker or elderly care for an older adult? [...] traveled recently to another state outside of [place], [place], [place], [place], [place], [place], [place]? no o If yes, did you quarantine [...] gather 3rd green party insurance information Third Green Party Information: not applicable PCP: Kyle Chavez MD Payor: [facility] MEDICARE / Plan: [employer] ONE CARE / Product Type: *No Product type* / documented in this encounter Plan of Treatment Upcoming Encounters Date Type Department Care Team (Late st Contact Info) Description 07/18/2024 4:00 PM EDT Office Visit Adult Medicine [address] [phone] Abby Beach PA [address] [place] [address] 09/09/2024 2:30 PM EDT Office Visit Adult Medicine [address] [place] [phone] Kyle Chavez MD [address] [place] [address] [phone] documented as of this encounter Visit Diagnoses Not on filedocumented in this encounter Additional Health Concerns Assessment Noted Time PHQ-9 Depression Total Score: 16 025 3:49 PM EST documented as of this encounter Care Teams Outside Contractor Sales Relationship Specialty Start Date End Date Kyle Chavez MD [address] [place] [address] PCP - General Internal Medicine 06/18/24 documented as of this encounter
--- OUTSIDE RECORDS SUMMARY | 2024-07-10 15:02 | XMS_ITS | Encounter Summary ---
Author Organization [facility] [place] [address] Care Team Providers Care Legal Cashier Name Role Phone Kyle Chavez MD Primary Care Provider [phone] Reason for Visit * Reason Onset Date Comments Weight Loss 07/04/2024 Stress 07/04/2024 Alopecia 07/04/2024 Encounter Details Date Type Department Care Team (Late st Contact Info) Description 07/04/2024 Telephone Adult Medicine [address] [phone] Kyle Chavez MD [address] [place] [address] Weight Loss; Stress; Alopecia Social History Tobacco [...] loved ones. For example, child and adolescent psychiatrist or elderly care for an older adult? [...] traveled recently to another state outside of [place], [place], [place], [place], [place], [place], [place]? no o If yes, did you quarantine [...] of accident/Injury: No If yes, gather 3rd democrat insurance information Third Democrat Information: not applicable PCP: Kyle Chavez MD Payor: [employer] MEDICARE / Plan: [employer] ONE CARE / Product Type: *No Product type* / documented in this encounter Plan of Treatment Upcoming Encounters Date Type Department Care Team (Late st Contact Info) Description 07/18/2024 4:00 PM EDT Office Visit Adult [address] [phone] Abby Beach PA [address] [place] [address] 09/09/2024 2:30 PM EDT Office Visit Adult Medicine [address] [phone] Kyle Chavez MD [address] [place] [address] documented as of this encounter Visit Diagnoses Not on filedocumented in this encounter Additional Health Concerns Assessment Noted Time PHQ-9 Depression Total Score: 16 025 3:49 PM EST documented as of this encounter Care Teams Legal Cashier Relationship Specialty Start Date End Date Kyle Chavez MD [address] [place] [address] PCP - General Internal Medicine 06/18/24 documented as of this encounter
--- OUTSIDE RECORDS SUMMARY | 2024-07-10 15:02 | XMS_ITS | Encounter Summary ---
Author Organization [facility] Address [address] [place] [address] Care Team Providers Care Hvac Manager Name Role Phone Ben Nuno MD Primary Care Provider [phone] Lucia Duff MD Primary Care Provider Amy Maldonado MD Primary Care Provider Unavail able Jean-Paul Carranza MD Primary Care Provider Unavail able Kyle Chavez MD Primary Care Provider [phone] Bravo Edwards MD, PHD Unavailable [facility], Pcp Primary Care Provider Unavailabl Kyle Washington MD Primary Care Provider [phone] Reason for Visit * Reason Comments refill request refills Encounter Details Date Type Department Care Team Description 10/15/2003 Telephone Adult Medicine [address] [phone] Ben Nuno MD [address] [place] [address] [phone] refill request (refills) Social History Tobacco Use [...] 10/15/2003 11:27 AM EDTCALL RECEIVED. Contact: self [phone] RX REFILLS MED NAME: Lorazepam DOSAGE: 0.5mg # OF TABLETS: #90 INSTRUCTIONS: take 1 tab every 6 hours as needed PHARMACY NAME AND TEL#: [address] [phone] INDICATE WHETHER IT IS: Call to outside pharmacy WHEN WAS THE PATIENT'S LAST ADULT MEDICINE APPOINTMENT? 08/20/03 IS THE DOCTOR HERE TODAY?: YES CAN THE MESSAGE WAIT UNTIL THE DOCTOR RETURNS?: YES HAS PATIENT BEEN TOLD THAT THE PRESCRIPTION WILL NOT BE COMPLETED UNTIL THE END OF THE DAY? YES Payor: [facility] INSURANCE Plan: [facility] INSURANCE Product Type: OTHER RX REFILLS MED NAME: soma DOSAGE: 350 mg # OF TABLETS: #90 INSTRUCTIONS: take 1 tab 3x daily documented in this encounter Plan of Treatment Not on file documented as of this encounter Visit Diagnoses Not on filedocumented in this encounter Care Teams Hvac Manager Relationship Specialty Start Date End Date Ben Nuno MD [address] [place] [address] PCP - General 12/16/1994 02/11/15 Lucia Duff MD [address] [place] [address] PCP - General Internal Medicine 02/12/15 01/31/18 Amy Hernandez MD [address] [place] [address] PCP - General Internal Medicine 02/01/18 06/03/18 Jean-Paul Carranza MD [address] [place] [address] PCP - General Internal Medicine 06/04/18 11/10/19 Kyle Chavez MD [address] [place] [address] PCP - General Internal Medicine 11/11/19 11/21/22 [facility], Pcp [address] [place], [place] [phone] PCP - General Internal Medicine 11/22/22 11/24/22 Kyle Chavez MD [address] [place] [address] PCP - General Internal Medicine 11/25/22 Bravo Edwards MD, PHD [address] [place] [address] Specialist Neurosurgery 06/10/21 documented as of this encounter
--- OUTSIDE RECORDS SUMMARY | 2024-07-10 15:02 | XMS_ITS | Encounter Summary ---
Author Organization [facility] Address [address] [place] [address] Care Team Providers Care Hat Blocker Name Role Phone Kyle Chavez MD Primary Care Provider [phone] Bravo Edwards MD, PHD Unavailable [facility], Pcp Primary Care Provider [facility] Kyle Chavez MD Primary Care Provider [phone] Encounter Details Date Type Department Care Team Description 03/10/2022 Pt. Non Urgent Medical Question Adult Medicine [address] [phone] Kyle Chavez MD [address] [place] [address] [phone] Social History Tobacco Use Types Packs/Day Years [...] Telephone Encounter - Manasa Longo M.A. - 03/10/2022 10:59 AM ESTFrom: Perla Dixon To: Jose Chavez Sent: 03/10/2022 10:45 AM EST Subject: Mom/housing Dr Chavez could you please call me. I need to talk to you.... Thank you... Perla Dixon documented in this encounter Plan of Treatment Not on file documented as of this encounter Visit Diagnoses Not on filedocumented in this encounter Care Teams Hat Blocker Relationship Specialty Start Date End Date Kyle Chavez MD [address] [place] [address] PCP - General Internal Medicine 11/11/19 11/21/22 [facility], Pcp [address] [place] [address] PCP - General Internal Medicine 11/22/22 11/24/22 Kyle Chavez MD [address] [place] [address] PCP - General Internal Medicine 11/25/22 Bravo Edwards MD, PHD [address] [place], [place] [phone] Specialist Neurosurgery 06/10/21 documented as of this encounter
--- OUTSIDE RECORDS SUMMARY | 2024-07-10 15:02 | XMS_ITS | Encounter Summary ---
Author Organization [facility] Address [address] [place] [address] Care Team Providers Care Web Press Operator Apprentice Name Role Phone Kyle Chavez MD Primary Care Provider [phone] Bravo Edwards MD, PHD [facility], Pcp Primary Care Provider Unavailabl e Kyle Chavez MD Primary Care Provider [phone] Encounter Details Date Type Department Care Team Description 12/22/2021 Pt. Non Urgent Medical Question [facility] Neurosurgery [place] [address] [place] [address] Bravo Edwards MD, PHD Social [...] filedocumented in this encounter Care Teams Web Press Operator Apprentice Relationship Specialty Start Date End Date Kyle Chavez MD [address] [place] [address] PCP - General Internal Medicine 11/11/19 11/21/22 [facility], Pcp [address] [place] [address] PCP - General Internal Medicine 11/22/22 11/24/22 Kyle Chavez MD [address] [place] [address] PCP - General Internal Medicine 11/25/22 Bravo Edwards MD, PHD [address] [place] [address] Specialist Neurosurgery 06/10/21 documented as of this encounter
--- OUTSIDE RECORDS SUMMARY | 2024-07-10 15:02 | XMS_ITS | Encounter Summary ---
Author Organization [facility] Address [address] [place] [address] Care Team Providers Care Primary School Teacher Librarian Name Role Phone Kyle Chavez MD Primary Care Provider [phone] Bravo Edwards MD, PHD Unavailable [facility], Pcp Primary Care Provider [facility] Kyle Chavez MD Primary Care Provider [phone] Encounter Details Date Type Department Care Team Description 10/20/2021 Refill Adult Medicine [address] [phone] Kyle Chavez MD [address] [place] [address] [phone] Social History Tobacco Use Types Packs/Day Years [...] on filedocumented in this encounter Care Teams Primary School Teacher Librarian Relationship Specialty Start Date End Date Kyle Chavez MD [address] [place] [address] [phone] PCP - General Internal Medicine 11/11/19 11/21/22 [facility], Pcp [address] [place] [address] PCP - General Internal Medicine 11/22/22 11/24/22 Kyle Chavez MD [address] [place] [address] PCP - General Internal Medicine 11/25/22 Bravo Edwards MD, PHD [address] [place] [address] Specialist Neurosurgery 06/10/21 documented as of this encounter
--- OUTSIDE RECORDS SUMMARY | 2024-07-10 15:02 | XMS_ITS | Encounter Summary ---
Author Organization [facility] Address [address] [place] [address] Care Team Providers Care Biodiesel Engineering Manager Name Role Phone Bravo Edwards MD, PHD Unavailable Unava ilKyle Camejo MD Primary Care Provider [phone] Reason for Visit * Reason Onset Date Comments Letter 02/21/2024 Encounter Details Date Type Department Care Team Description 02/21/2024 Pt. Non Urgent Medical Question Adult Medicine [address] [phone] Kyle Chavez MD [address] [place] [address] Social History Tobacco Use Types Packs/Day Years [...] on filedocumented in this encounter Care Teams Biodiesel Engineering Manager Relationship Specialty Start Date End Date Kyle Chavez MD [address] [place] [address] PCP - General Internal Medicine 11/25/22 Bravo Edwards MD, PHD Specialist Neurosurgery 06/10/21 documented as of this encounter
--- OUTSIDE RECORDS SUMMARY | 2024-07-10 15:02 | XMS_ITS | Encounter Summary ---
Author Organization [facility] Address [address] [place] [address] Care Team Providers Care Quarry Extraction Worker Name Role Phone Kyle Chavez MD Primary Care Provider [phone] Bravo Edwards MD, PHD Unavailable [facility] Primary Care Provider [facility] Kyle Chavez MD Primary Care Provider [phone] Encounter Details Date Type Department Care Team Description 06/24/2022 Pt. Non Urgent Medical Question Adult Medicine [address] [phone] Kyle Chavez MD [address] [place] [address] [phone] Social History Tobacco Use Types Packs/Day Years [...] on filedocumented in this encounter Care Teams Quarry Extraction Worker Relationship Specialty Start Date End Date Kyle Chavez MD [address] [place] [address] PCP - General Internal Medicine 11/11/19 11/21/22 [facility], Pcp [address] [place], [place] [phone] PCP - General Internal Medicine 11/22/22 11/24/22 Kyle Chavez MD [address] [place] [address] PCP - General Internal Medicine 11/25/22 Bravo Edwards MD, PHD [address] [place] [address] Specialist Neurosurgery 06/10/21 documented as of this encounter
--- OUTSIDE RECORDS SUMMARY | 2024-07-10 15:02 | XMS_ITS | Clinical Summary ---
Author Organization [facility] Address [address] [place] [address] Care Team Providers Care Pillar Man Name Role Phone Bravo Edwards MD, PHD Unavailable Mandava Kyle King MD Primary Care Provider [phone] Allergies Active Allergy Reactions Severity Noted Date [...] disorder 03/31/2015 Overview: Recurrent /Dr Xochilt Yanes, [place] Chronic back pain 02/25/2005 Overview: S/p 2 lumbar fusion, 2 discectomy Anxiety 02/25/2005 Opiate dependence History of cervical cancer Overview: Pelvic external beam radiation and brachytherapy with sensitizing cisplatin complted at [facility] with Dr. Cox and Dr. Long in [...] of not completing the topic Care Teams Pillar Man Relationship Specialty Start Date End Date Kyle Chavez MD [address] [place] [address] [phone] PCP - General Internal Medicine 11/25/22 Bravo Edwards MD, PHD Specialist Neurosurgery 06/10/21
--- OUTSIDE RECORDS SUMMARY | 2024-07-10 15:02 | XMS_ITS | Encounter Summary ---
Author Organization [facility] Address [address] [place] [address] Care Team Providers Care Pelt Dropper Name Role Phone Lucia Duff MD Primary Care Provider Amy Maldonado MD Primary Care Provider Unavail able Jean-Paul Carranza MD Primary Care Provider Unavail able Kyle Chavez MD Primary Care Provider [phone] Bravo Edwards MD, PHD Unavailable Unava [facility], Pcp Primary Care Provider Unavailabl e Kyle Chavez MD Primary Care Provider [phone] Reason for Visit * Reason Onset Date Comments [facility] Special Procedure Gi 10/31/2017 Encounter Details Date Type Department Care Team Description 10/31/2017 Telephone Gastroenterology - [address] [address] Caty Vo MD [facility] Procedure Gi [...] to cancel her colonoscopy. I have contacted [facility] endo suite and have notified Them. * Telephone Encounter - Merle Healy - 02/07/2018 12:54 PM EDT Patient double booked at [facility], changed time of arrival from 7am to [...] Patient had to reschedule her colonoscopy at [facility], she is set for 02/06/18, arrival 7:00am, 8:00am procedure. * Telephone Encounter - Mamie Fleming - 10/31/2017 2:46 PM EDT Patient has been scheduled for a colonoscopy at [facility] on 12/12/17 at 6:30 am arrival time, 7:30 [address] procedure time [address] Dr Vo. Booking sheet, snap shot, demographics, and insurance faxed to [facility] Endo suite. Case # pending. documented in this encounter Plan of Treatment Not on file documented as of this encounter Visit Diagnoses Not on filedocumented in this encounter Care Teams Pelt Dropper Relationship Specialty Start Date End Date Lucia Duff MD PCP - General Internal Medicine 02/12/15 01/31/18 Amy Hernandez MD PCP - General Internal Medicine 02/01/18 06/03/18 Jean-Paul Carranza MD PCP - General Internal Medicine 06/04/18 11/10/19 Kyle Chavez MD [address] [place] [address] PCP - General Internal Medicine 11/11/19 11/21/[address] [address] PCP - General Internal Medicine 11/22/22 11/24/22 Kyle Chavez MD [address] [place] [address] PCP - General Internal Medicine 11/25/22 Bravo Edwards MD, PHD [address] [place], [place] [phone] Specialist Neurosurgery 06/10/21 documented as of this encounter
--- OUTSIDE RECORDS SUMMARY | 2024-07-10 15:02 | XMS_ITS | Encounter Summary ---
Author Organization [facility] [place] [address] Care Team Providers Care Vp Research Name Role Phone Kyle Chavez MD Primary Care Provider [phone] Encounter Details Date Type Department Care Team ([facility] Contact Info) Description 07/08/2024 Telephone Adult Medicine [address] [place] [phone] Marcelina Soria, RN Social History Tobacco Use [...] for your loved ones. For example, child psychiatrist or elderly care for an older [...] Progress Notes * Marcelina Soria RN - 07/08/2024 4:14 PM EDT Pt states she cannot talk now as she is on her way to get her nails done. She was instructed to call back when in was more convenient for her. She is requesting we call her back tomorrow morning. documented in this encounter Plan of Treatment Upcoming Encounters Date Type Department Care Team (Late st Contact Info) Description 07/18/2024 4:00 PM EDT Office Visit Adult Medicine [address] [address] Abby Beach PA [address] [place] [address] 09/09/2024 2:30 PM EDT Office Visit Adult Medicine [address] [address] Kyle Chavez MD [address] [place] [address] documented as of this encounter Visit Diagnoses Not on filedocumented in this encounter Additional Health Concerns Assessment Noted Time PHQ-9 Depression Total Score: 16 025 3:49 PM EST documented as of this encounter Care Teams Vp Research Relationship Specialty Start Date End Date Kyle Chavez MD [address] [place] [address] PCP - General Internal Medicine 06/18/24 documented as of this encounter
--- OUTSIDE RECORDS SUMMARY | 2024-07-10 15:02 | XMS_ITS | Encounter Summary ---
Author Organization [facility] Address [address] [place] [address] Care Team Providers Care Daub Color Mixer Name Role Phone Kyle Chavez MD Primary Care Provider [phone] Bravo Edwards MD, PHD Unavailable [facility], [facility] Primary Care Provider [facility] Kyle Chavez MD Primary Care Provider Encounter Details Date Type Department Care Team Description 02/07/2022 Pt. Non Urgent Medical Question Adult Medicine [address] [phone] Kyle Chavez MD [address] [place] [address] [phone] Social History Tobacco Use Types Packs/Day Years [...] on filedocumented in this encounter Care Teams Daub Color Mixer Relationship Specialty Start Date End Date Kyle Chavez MD [address] [place] [address] PCP - General Internal Medicine 11/11/19 11/21/22 [facility], Pcp [address] [place], [place] [phone] PCP - General Internal Medicine 11/22/22 11/24/22 Kyle Chavez MD [address] [place] [address] PCP - General Internal Medicine 11/25/22 Bravo Edwards MD, PHD [address] [place] [address] Specialist Neurosurgery 06/10/21 documented as of this encounter
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
--- OUTSIDE RECORDS SUMMARY | 2024-07-10 15:02 | XMS_ITS | Encounter Summary ---
Author Organization [facility] Address [address] [place] [address] Care Team Providers Care Revival Clerk Name Role Phone Bravo Edwards MD, PHD Unavailable Unava ilKyle Camejo MD Primary Care Provider [phone] Encounter Details Date Type Department Care Team Description 12/05/2023 Orders Only Medical Records [address] [place] [address] Julienne Pop DPM Social History Tobacco Use [...] on filedocumented in this encounter Care Teams Revival Clerk Relationship Specialty Start Date End Date Kyle Chavez MD [address] [place] [address] PCP - General Internal Medicine 11/25/22 Bravo Edwards MD, PHD Specialist Neurosurgery 06/10/21 documented as of this encounter
--- OUTSIDE RECORDS SUMMARY | 2024-07-10 15:02 | XMS_ITS | Encounter Summary ---
Author Organization [facility] Address [address] [place] [address] Care Team Providers Care Store Merchandiser Name Role Phone Jean-Paul Carranza MD Primary Care Provider Unavail Kyle Camejo MD Primary Care Provider [phone] Bravo Edwards MD, PHD Unavailable [facility], Pcp Primary Care Provider UnavailKyle Putnam MD Primary Care Provider [phone] Reason for Visit * Reason Onset Date Comments Faxed Refill 06/27/2019 Encounter Details Date Type Department Care Team Description 06/27/2019 Refill Adult Medicine [address] [address] Jean-Paul Carranza MD Faxed Refill Social History [...] N/A Patients current insurance carrier is: Payor: [facility] MCR / Plan: [facility] / Product Type: HMO [id number] documented in this encounter Plan of Treatment Not on file documented as of this encounter Visit Diagnoses Not on filedocumented in this encounter Care Teams Store Merchandiser Relationship Specialty Start Date End Date Jean-Palu Carranza MD PCP - General Internal Medicine 06/04/18 11/10/19 Kyle Chavez MD [address] [place] [address] PCP - General Internal Medicine 11/11/19 11/21/22 [place] [phone] PCP - General Internal Medicine 11/22/22 11/24/22 Kyle Chavez MD [address] [place] [address] PCP - General Internal Medicine 11/25/22 Bravo Edwards MD, PHD [address] [place] [address] Specialist Neurosurgery 06/10/21 documented as of this encounter
--- OUTSIDE RECORDS SUMMARY | 2024-07-10 15:02 | XMS_ITS | Encounter Summary ---
Author Organization [facility] Address [address] [place] [address] Care Team Providers Care Anode Builder Name Role Phone Lucia Duff MD Primary Care Provider Amy Maldonado MD Primary Care Provider Unavail able Jean-Paul Carranza MD Primary Care Provider Unavail able Kyle Chavez MD Primary Care Provider [phone] Bravo Edwards MD, PHD Unavailable [facility], Pcp Primary Care Provider Unavailabl Kyle Washington MD Primary Care Provider [phone] Encounter Details Date Type Department Care Team Description 11/10/2016 Director Of Respiratory Therapy Report Medical Records [address] [place] [address] Jessica Cisneros Social History Tobacco Use Types [...] on filedocumented in this encounter Care Teams Anode Builder Relationship Specialty Start Date End Date Lucia Duff MD PCP - General Internal Medicine 02/12/15 01/31/18 Amy Hernandez MD PCP - General Internal Medicine 02/01/18 06/03/18 Jean-Paul Carranza MD PCP - General Internal Medicine 06/04/18 11/10/19 Kyle Chavez MD [address] [place] [address] PCP - General Internal Medicine 11/11/19 11/21/22 [facility], Pcp [address] [place] [address] PCP - General Internal Medicine 11/22/22 11/24/22 Kyle Chavez MD [address] [place] [address] PCP - General Internal Medicine 11/25/22 Bravo Edwards MD, PHD [address] [place] [address] Specialist Neurosurgery 06/10/21 documented as of this encounter
--- OUTSIDE RECORDS SUMMARY | 2024-07-10 15:02 | XMS_ITS | Encounter Summary ---
Author Organization [facility] Address [address] [place] [address] Care Team Providers Care Patternmaker Name Role Phone Kyle Chavez MD Primary Care Provider [phone] Bravo Edwards MD, PHD Unavailable [facility], Pcp Primary Care Provider [facility] Kyle Chavez MD Primary Care Provider [phone] Reason for Visit * Reason Comments E-prescribe Rx Request Encounter Details Date Type Department Care Team Description 05/03/2022 Refill Adult Medicine [address] [phone] Kyle Chavez MD [address] [place] [address] [phone] E-prescribe Rx Request Social History Tobacco Use [...] 1 Buprenorphine-Nalox 8-2 Mg Tab 28 14 [facility] [id number] (56[facility] 05/01 16.00 mgT [place] 04/18/2022 04/01/2022 1 Pregabalin 150 Mg Capsule 90 30 An Cru [id number] Wal (5640) 0/0 3.01 LMET [place] 04/14/2022 04/04/2022 1 Lorazepam 1 Mg Tablet 90 30 Ch L p [id number] Wal (5640) 0/3 3.00 [place]ET [place] 04/05/2022 04/05/2022 1 Buprenorphine-Nalox 8-2 Mg Tab 28 14 [facility] 563800 Wal (5640) 0 16.00 mgT [place] 03/30/2022 03/28/2022 1 Pregabalin 150 Mg Capsule 60 30 An Cru 932823 Wal (5640) 0/5 2.01 [place]ET [place] 03/23/2022 03/08/2022 1 Buprenorphine-Nalox 8-2 Mg Tab 28 14 Mck 124641 Wal (5640) 05/01 16.00 mgT [place] 03/16/2022 03/16/2022 1 Lorazepam 1 Mg Tablet 90 30 Ch L p [id number] Wal (5640) 0/0 3.00 LMET [place] 03/11/2022 03/09/2022 1 Pregabalin 50 Mg Capsule 30 30 An Cru 849867 Wal (5640) 0/0 0.34 LMET [place] 03/08/2022 03/08/2022 1 Buprenorphine-Nalox 8-2 Mg Tab 28 14 [facility] 909173 Wal (5640) 0/1 16.00 mgT [place] 03/07/2022 02/07/2022 1 Pregabalin 150 Mg Capsule 60 30 An Cru 727155 Wal (5640) 0/4 2.01 LMET [place] 02/21/2022 02/08/2022 1 Buprenorphine-Nalox 8-2 Mg Tab 28 14 Ka Mck 149437 Wal (5471) 0/0 16.00 mgT [place] 02/14/2022 12/31/2021 1 Lorazepam 1 Mg Tablet 90 30 Ch L p 892069 Wal (5471) 0/2 3.00 LMET [place] 02/11/2022 02/09/2022 1 Pregabalin 50 Mg Capsule 30 30 Oy Ogu 584365 Wal (5471) 0/0 0.34 LMET [place] 02/08/2022 02/08/2022 1 Buprenorphine-Nalox 8-2 Mg Tab 28 14 Ka Mck 953163 Wal (5471) 0/1 16.00 mgT [place] 02/07/2022 02/07/2022 1 Pregabalin 150 Mg Capsule 60 30 An Cru 471181 Wal (5471) 0/5 2.01 LMET [place] documented in this encounter Plan of Treatment Not on file documented as of this encounter Visit Diagnoses Not on filedocumented in this encounter Care Teams Patternmaker Relationship Specialty Start Date End Date Kyle Chavez MD [address] [place] [address] PCP - General Internal Medicine 11/11/19 11/21/22 [facility], Pcp [address] [place] [address] PCP - General Internal Medicine 11/22/22 11/24/22 Kyle Chavez MD [address] [place] [address] PCP - General Internal Medicine 11/25/22 Bravo Edwards MD, PHD [address] [place], [place] 6[address] Specialist Neurosurgery 06/10/21 documented as of this encounter
--- OUTSIDE RECORDS SUMMARY | 2024-07-10 15:02 | XMS_ITS | Encounter Summary ---
Author Organization [facility] Address [address] [place] [address] Care Team Providers Care Agency Cashier Name Role Phone Kyle Chavez MD Primary Care Provider [phone] Bravo Edwards MD, PHD Unavailable [facility], Pcp Primary Care Provider [facility] Kyle Chavez MD Primary Care Provider [phone] Reason for Visit * Reason Comments E-prescribe Rx Request Encounter Details Date Type Department Care Team Description 11/04/2021 Refill Adult Medicine [address] [address] Mini Breen PA E-prescribe Rx Request Social [...] N/A Patients current insurance carrier is: Payor: [facility] MCR / Plan: [facility] / Product Type: HMO [id number] documented in this encounter Plan of Treatment Not on file documented as of this encounter Visit Diagnoses Not on filedocumented in this encounter Care Teams Agency Cashier Relationship Specialty Start Date End Date Kyle Chavez MD [address] [place] [address] PCP - General Internal Medicine 11/11/19 11/21/22 [facility], [place] [phone] PCP - General Internal Medicine 11/22/22 11/24/22 Kyle Chavez MD [address] [place] [address] PCP - General Internal Medicine 11/25/22 Bravo Edwards MD, PHD [address] [place] [address] Specialist Neurosurgery 06/10/21 documented as of this encounter
--- OUTSIDE RECORDS SUMMARY | 2024-07-10 15:02 | XMS_ITS | Encounter Summary ---
Author Organization [facility] Address [address] [place] [address] Care Team Providers Care Quill Fixer Name Role Phone Kyle Chavez MD Primary Care Provider [phone] Bravo Edwards MD, PHD Unavailable [facility], Pcp Primary Care Provider [facility] Kyle Chavez MD Primary Care Provider [phone] Encounter Details Date Type Department Care Team Description 08/23/2022 Pt. Non Urgent Medical Question Adult Medicine [address] [phone] Kyle Chavez MD [address] [place] [address] [phone] Social History Tobacco Use Types Packs/Day Years [...] . Please call my cell phone at [phone]. There will be no more [phone] it's getting disconnected. When I come in I'll make sure I change that. Thank you... Perla documented in this encounter Plan of Treatment Not on file documented as of this encounter Visit Diagnoses Not on filedocumented in this encounter Care Teams Quill Fixer Relationship Specialty Start Date End Date Kyle Chavez MD [address] [place] [address] PCP - General Internal Medicine 11/11/19 11/21/22 [facility], Pcp [address] [place] [address] PCP - General Internal Medicine 11/22/22 11/24/22 Kyle Chavez MD [address] [place] [address] PCP - General Internal Medicine 11/25/22 Bravo Edwards MD, PHD [address] [place] [address] Specialist Neurosurgery 06/10/21 documented as of this encounter
--- OUTSIDE RECORDS SUMMARY | 2024-07-10 15:02 | XMS_ITS ---
Author Organization [facility] Address [address] [facility] [place] [address] Care Team Providers Care Advertising Operations Manager Name Role Phone Cheko Chavez MD Primary Care Provider Julienne Cade Unavailable [phone] Allergies Allergen (clinical drug ingredient) Drug/Non Drug [...] 025 Encounters Encounter Location Date Provider Diagnosis [facility] [address] [place] [address] [address] 05/29/2024 Julienne Pop Type 2 diabetes mellitus [...] Provider Name:Julienne rock, 08/21/2024 11:00:00 AM, [address] [place], [address], Procedure Notes * Category Sub-Category Detail Notes [...] use of a nail nipper and/or dremel-type die grinder, to a more viable healthy nail [...] to maintain effectiveness in symptomatic relief - 16984 Keratoma Treatment Parring or Cutting o f [...] instrumentation by the physician of record - 54797 Progress Notes * Rehana TROTTERhyDOB:1964 (59 yo F)Acc No.[id number]:05/29/2024 Progress Note Patient:?Perla TROTTER Provider:?Julienne Pop DPM :1965???Age:59 Y???Sex:Female D ate:05/29/2024 Address:[address] [place] [address] [facility] [place] Pcp:Cheko Chavez MD Subjective: * Chief Complaints: [...] use of a nail nipper and/or dremel-type die grinder, to a more viable healthy nail [...] to maintain effectiveness in symptomatic relief - 48234.?Keratoma Treatment:?Parring or Cutting of Benign Hyperkeratotic Lesion(s)?(-57) [...] instrumentation by the physician of record - 07790.? * Procedure Codes:?90843 DEBRI DE NAIL, 6 OR MORE, Modifiers: XS 87211 TRIM SKIN LESIONS, OVER 4, Modifiers: XS [...]
--- OUTSIDE RECORDS SUMMARY | 2024-07-10 15:02 | XMS_ITS | Encounter Summary ---
Author Organization [facility] Address [address] [place] [address] Care Team Providers Care Chip Person Name Role Phone Bravo Edwards MD, PHD Unavailable Unava ilable Kyle Chavez MD Primary Care Provider [phone] Encounter Details Date Type Department Care Team Description 11/07/2023 Pt. Non Urgent Medical Question Adult Medicine [address] [phone] Kyle Chavez MD [address] [place] [address] [phone] Social History Tobacco Use Types Packs/Day Years [...] on filedocumented in this encounter Care Teams Chip Person Relationship Specialty Start Date End Date Kyle Chavez MD [address] [place] [address] [phone] PCP - General Internal Medicine 11/25/22 Bravo Edwards MD, PHD Specialist Neurosurgery 06/10/21 documented as of this encounter
--- OUTSIDE RECORDS SUMMARY | 2024-07-10 15:02 | XMS_ITS | Encounter Summary ---
Author Organization [facility] [place] [address] Care Team Providers Care Pipe Bowl Paint Trimmer Name Role Phone Kyle Chavez MD Primary Care Provider [phone] Reason for Visit * Reason Onset Date Comments Medication Problem 07/04/2024 Encounter Details Date Type Department Care Team ([facility] st Contact Info) Description 07/04/2024 Telephone Adult Medicine [address] [address] Kyle Chavez MD [address] [place] [address] Medication Problem Social History Tobacco Use Types [...] your loved ones. For example, child care provider or elderly care for an older adult? [...] is patients PCP?: Kyle Chavez MD Payor: [facility] / Plan: [facility] / Product Type: *No Product type* / documented in this encounter Plan of Treatment Upcoming Encounters Date Type Department Care Team (Late st Contact Info) Description 07/18/2024 4:00 PM EDT Office Visit Adult Medicine [address] [phone] Abby Beach PA [address] [place] [address] 09/09/2024 2:30 PM EDT Office Visit Adult [address] [phone] Kyle Chavez MD [address] [place] [address] documented as of this encounter Visit Diagnoses Not on filedocumented in this encounter Additional Health Concerns Assessment Noted Time PHQ-9 Depression Total Score: 16 06/18/2 025 3:49 PM EST documented as of this encounter Care Teams Pipe Bowl Paint Trimmer Relationship Specialty Start Date End Date Kyle Chavez MD [address] [place] [address] PCP - General Internal Medicine 06/18/24 documented as of this encounter
--- OUTSIDE RECORDS SUMMARY | 2024-07-10 15:02 | XMS_ITS | Encounter Summary ---
Author Organization [facility] Address [address] [place] [address] Care Team Providers Care Manager It Security Name Role Phone Kyle Chavez MD Primary Care Provider [phone] Reason for Visit * Reason Comments Rash Encounter Details Date Type Department Care Team ([facility] Contact Info) Description 06/19/2024 1:30 PM EST Office Visit Adult Medicine [address] [phone] Julienne Henry PA [address] [place] [address] Cellulitis, umbilical (Primary Dx); Right acute serous [...] Problem List Diagnosis Date Noted Opiate dependence ([facility]) 02/07/2024 Acid reflux 03/23/2020 Abnormal brain MRI 02/28/2018 Diabetic neuropathy ([facility]) 02/28/2018 Gait instability 02/28/2018 Type 2 diabetes mellitus ([facility]) 02/28/2018 Stress incontinence 07/26/2017 Hyperlipidemia LDL goal <100 12/02/2015 Morbid obesity ([facility]) 07/31/2015 Chronic hepatitis C without hepatic coma ([facility]) 05/18/2015 Pulmonary nodules 04/01/2015 Insomnia 03/31/2015 Major [...] Description 07/18/2024 4:00 PM EDT Office Visit [address] [phone] Abby Beach PA [address] [place] [address] 09/09/2024 2:30 PM EDT Office Visit [address] [phone] Kyle Chavez MD [address] [place] [address] documented as of this encounter Visit Diagnoses [...] documented as of this encounter Care Teams Manager It Security Relationship Specialty Start Date End Date Kyle Chavez MD [address] [place] [address] PCP - General Internal Medicine 06/18/24 documented as of this encounter
--- OUTSIDE RECORDS SUMMARY | 2024-07-10 15:02 | XMS_ITS | Encounter Summary ---
Author Organization [facility] Address [address] [place] [address] Care Team Providers Care Investor Relations Director Name Role Phone Kyle Chavez MD Primary Care Provider [phone] rBavo Edwards MD, PHD Unavailable [facility], Pcp Primary Care Provider [facility] Kyle Chavez MD Primary Care Provider [phone] Reason for Visit * Reason Onset Date Comments Mychart Rx Refill 12/13/2021 Encounter Details Date Type Department Care Team Description 12/13/2021 Refill Adult Medicine [address] [address] Mini Breen PA Mychart Rx Refill Social [...] on filedocumented in this encounter Care Teams Investor Relations Director Relationship Specialty Start Date End Date Kyle Chavez MD [address] [place] [address] PCP - General Internal Medicine 11/11/19 11/21/22 [facility] Pcp [address] [place] [address] PCP - General Internal Medicine 11/22/22 11/24/22 Kyle Chavez MD [address] [place] [address] PCP - General Internal Medicine 11/25/22 Bravo Edwards MD, PHD [address] [place] [address] Specialist Neurosurgery 06/10/21 documented as of this encounter
--- OUTSIDE RECORDS SUMMARY | 2024-07-10 15:03 | XMS_ITS | Encounter Summary ---
Author Organization [facility] Address [address] [place] [address] Care Team Providers Care Launderer Hand Name Role Phone Jean-Paul Carranza MD Primary Care Provider Unavail Kyle Camejo MD Primary Care Provider [phone] Bravo dEwards MD, PHD Unavailable [facility], Pcp Primary Care Provider UnavailKyle Putnam MD Primary Care Provider [phone] Reason for Visit * Reason Onset Date Comments Tank Pumper Feedback 08/24/2018 Neurosurgery Encounter Details Date Type Department Care Team Description 08/24/2018 Telephone Adult Medicine [address] [address] Martha Hopkins PA-C Tank Pumper Feedback (Neurosurgery) Social History Tobacco Use Types [...] calling you to discuss. Thank you, Kassie Software Firmware Engineer documented in this encounter Plan of Treatment Not on file documented as of this encounter Visit Diagnoses Not on filedocumented in this encounter Care Teams Launderer Hand Relationship Specialty Start Date End Date Jean-Paul Carranza MD PCP - General Internal Medicine 06/04/18 11/10/19 Kyle Chavez MD [address] [place] [address] PCP - General Internal Medicine 11/11/19 11/21/22 [place] [phone] PCP - General Internal Medicine 11/22/22 11/24/22 Kyle Chavez MD [address] [place] [address] PCP - General Internal Medicine 11/25/22 Bravo Edwards MD, PHD [address] [place], [place] [phone] Specialist Neurosurgery 06/10/21 documented as of this encounter
--- OUTSIDE RECORDS SUMMARY | 2024-07-10 15:03 | XMS_ITS | Encounter Summary ---
Author Organization [facility] Address [address] [place] [address] Care Team Providers Care Etl Bi Developer Name Role Phone Lucia Duff MD Primary Care Provider Amy Maldonado MD Primary Care Provider Unavail able Jean-Paul Carranza MD Primary Care Provider Unavail able Kyle Chavez MD Primary Care Provider [phone] Bravo Edwards MD, PHD [facility] Primary Care Provider Unavailabl Kyle Washington MD Primary Care Provider [phone] Encounter Details Date Type Department Care Team Description 04/07/2016 Release of Information Medical Records [address] [place] [id number] Abstract, Provider Social History Tobacco Use Types [...] on filedocumented in this encounter Care Teams Etl Bi Developer Relationship Specialty Start Date End Date Lucia Duff MD PCP - General Internal Medicine 02/12/15 01/31/18 Amy Hernandez MD PCP - General Internal Medicine 02/01/18 06/03/18 Jean-Paul Carranza MD PCP - General Internal Medicine 06/04/18 11/10/19 Kyle Chavez MD [address] [place] [address] PCP - General Internal Medicine 11/11/19 11/21/22 [facility], Pcp [address] [place], [place] [phone] PCP - General Internal Medicine 11/22/22 11/24/22 Kyle Chavez MD [address] [place] [address] PCP - General Internal Medicine 11/25/22 Bravo Edwards MD, PHD [address] [place] [address] Specialist Neurosurgery 06/10/21 documented as of this encounter
--- OUTSIDE RECORDS SUMMARY | 2024-07-10 15:03 | XMS_ITS | Encounter Summary ---
Author Organization [facility] Address [address] [place] [address] Care Team Providers Care Test Rider Name Role Phone Bravo Edwards MD, PHD Unavailable Unava ilable Kyle Chavez MD Primary Care Provider [phone] Encounter Details Date Type Department Care Team Description 10/23/2023 Pt. Non Urgent Medical Question Adult Medicine [address] [phone] Kyle Cahvez MD [address] [place] [address] [phone] Social History Tobacco Use Types Packs/Day Years [...] on filedocumented in this encounter Care Teams Test Rider Relationship Specialty Start Date End Date Kyle Chavez MD [address] [place] [address] [phone] PCP - General Internal Medicine 11/25/22 Bravo Edwards MD, PHD Specialist Neurosurgery 06/10/21 documented as of this encounter
--- OUTSIDE RECORDS SUMMARY | 2024-07-10 15:03 | XMS_ITS | Encounter Summary ---
Author Organization [facility] Address [address] [place] [address] Care Team Providers Care Linux Unix Administrator Name Role Phone Kyle Chavez MD Primary Care Provider [phone] Bravo Edwards MD, PHD Unavailable [facility], Pcp Primary Care Provider [facility] Kyle Chavez MD Primary Care Provider [phone] Reason for Visit * Reason Onset Date Comments Neck Pain 07/08/2021 Shoulder Pain 07/08/2021 Encounter Details Date Type Department Care Team Description 07/08/2021 Telephone [facility] Neurosurgery [place] [address] [address] Walker Khan PA-C [address] [address] Neck Pain; Shoulder Pain [...] on filedocumented in this encounter Care Teams Linux Unix Administrator Relationship Specialty Start Date End Date Kyle Chavez MD [address] [place] [address] PCP - General Internal Medicine 11/11/19 11/21/22 [facility], Pcp [address] [place] [address] PCP - General Internal Medicine 11/22/22 11/24/22 Kyle Chavez MD [address] [place] [address] PCP - General Internal Medicine 11/25/22 Bravo Edwards MD, PHD [address] [place] [address] Specialist Neurosurgery 06/10/21 documented as of this encounter
--- OUTSIDE RECORDS SUMMARY | 2024-07-10 15:03 | XMS_ITS | Encounter Summary ---
Author Organization [facility] Address [address] [place] [address] Care Team Providers Care Mash Preparatory Operator Name Role Phone Kyle Chavez MD Primary Care Provider [phone] Bravo Edwards MD, PHD Unavailable [facility], Pcp Primary Care Provider [facility] Kyle Chavez MD Primary Care Provider [phone] Reason for Visit * Reason Onset Date Comments Form 10/04/2021 Encounter Details Date Type Department Care Team Description 10/04/2021 Pt. Non Urgent Medical Question Adult Medicine [address] [address] Kyle Chavez MD [address] [place] [address] [phone] Social History Tobacco Use Types Packs/Day Years [...] 10/04/2021 8:17 AM EDTFrom: Perla Dixon To: oJse Chavez Sent: 10/04/2021 8:03 AM EDT Subject: [...] on filedocumented in this encounter Care Teams Mash Preparatory Operator Relationship Specialty Start Date End Date Kyle Chavez MD [address] [place] [address] PCP - General Internal Medicine 11/11/19 11/21/22 [facility], Pcp [address] [place], [place] [phone] PCP - General Internal Medicine 11/22/22 11/24/22 Kyle Chavez MD [address] [place] [address] PCP - General Internal Medicine 11/25/22 Bravo Edwards MD, PHD [address] [place] [address] Specialist Neurosurgery 06/10/21 documented as of this encounter
--- OUTSIDE RECORDS SUMMARY | 2024-07-10 15:03 | XMS_ITS | Encounter Summary ---
Author Organization [facility] Address [address] [place] [address] Care Team Providers Care Interlocking Tower Operator Name Role Phone Bravo Edwards MD, PHD Unavailable Unava ilKyle Camejo MD Primary Care Provider [phone] Encounter Details Date Type Department Care Team Description 10/26/2023 Orders Only Radiology - [address] [phone] Radiology, Authorizing Social History Tobacco Use Types Packs/Day Years [...] on filedocumented in this encounter Care Teams Interlocking Tower Operator Relationship Specialty Start Date End Date Kyle Chavez MD [address] [place] [address] [phone] PCP - General Internal Medicine 11/25/22 Bravo Edwards MD, PHD Specialist Neurosurgery 06/10/21 documented as of this encounter
--- OUTSIDE RECORDS SUMMARY | 2024-07-10 15:03 | XMS_ITS | Encounter Summary ---
Author Organization [facility] Address [address] [place] [address] Care Team Providers Care Computer Software Engineer Name Role Phone Bravo Edwards MD, PHD Unavailable Unava Kyle King MD Primary Care Provider [phone] Encounter Details Date Type Department Care Team Description 10/16/2023 Pt. Non Urgent Medical Question Adult Medicine [address] [phone] Kyle Chavez MD [address] [place] [address] Social History Tobacco Use Types Packs/Day Years [...] 10/16/2023 11:31 AM EDTFrom: Perla Dixon To: Jsoe Chavez Sent: 10/16/2023 11:29 AM EDT Subject: [...] on filedocumented in this encounter Care Teams Computer Software Engineer Relationship Specialty Start Date End Date Kyle Chavez MD [address] [place] [address] PCP - General Internal Medicine 11/25/22 Bravo Edwards MD, PHD Specialist Neurosurgery 06/10/21 documented as of this encounter
--- OUTSIDE RECORDS SUMMARY | 2024-07-10 15:03 | XMS_ITS | Encounter Summary ---
Author Organization [facility] Address [address] [place] [address] Care Team Providers Care Store Leader Name Role Phone Jean-Paul Carranza MD Primary Care Provider Unavail Kyle Camejo MD Primary Care Provider [phone] Bravo Edwards MD, PHD Unavailable [facility], Pcp Primary Care Provider UnavailKyle Putnam MD Primary Care Provider [phone] Reason for Visit * Reason Onset Date Comments Provider Call Back 10/05/2018 Encounter Details Date Type Department Care Team Description 10/05/2018 Telephone Adult Medicine [address] [address] Jean-Paul Carranza MD Provider Call Back Social [...] Telephone Encounter - Jean-Paul Carranza MD - 10/12/2018 4:39 PM EDT I have spoken to the patient and indicated we we will need to taper off the lorazepam. * Telephone Encounter - Zina Chadwick - 10/12/2018 10:02 AM EDT Patient calling for Dr. Carranza. She would like to know if he has heard anything from the appeal board. * Telephone Encounter - Waleska Joaquin - 10/05/2018 8:35 AM EDT Caller requesting call back from provider: Is the caller the patient? YES If caller is not the patient, what is the callers name? N/A Callers relationship to patient? SELF If person calling is not the patient themselves, is there a verbal release in FYI or permanent comments for this person: YES Reason for call back: PATIENT IS CALLING ABOUT HER APPEAL. Caller offered to speak with the nurse for assistance: NO Response: Patient offered to speak with nurse to assist them: refused offer documented in this encounter Plan of Treatment Not on file documented as of this encounter Visit Diagnoses Not on filedocumented in this encounter Care Teams Store Leader Relationship Specialty Start Date End Date Jean-Paul Carranza MD PCP - General Internal Medicine 06/04/18 11/10/19 Kyle Chavez MD [address] [place] [address] PCP - General Internal Medicine 11/11/19 11/21/[address] [address] PCP - General Internal Medicine 11/22/22 11/24/22 Kyle Chavez MD [address] [place] [address] PCP - General Internal Medicine 11/25/22 Bravo Edwards MD, PHD [address] [place] [address] Specialist Neurosurgery 06/10/21 documented as of this encounter
--- OUTSIDE RECORDS SUMMARY | 2024-07-10 15:03 | XMS_ITS | Encounter Summary ---
Author Organization [facility] Address [address] [place] [address] Care Team Providers Care Front Office Assistant Name Role Phone Jean-Paul Carranza MD Primary Care Provider Unavail Kyle Camejo MD Primary Care Provider [phone] Bravo Edwards MD, PHD Unavailable [facility], Pcp Primary Care Provider UnavailKyle Putnam MD Primary Care Provider [phone] Reason for Visit * Reason Onset Date Comments Faxed Order 09/05/2018 Encounter Details Date Type Department Care Team Description 09/05/2018 Telephone Adult Medicine [address] [address] Jean-Paul Carranza MD Faxed Order Social History [...] Miscellaneous Notes * Telephone Encounter - Citlali Cuevas - 09/05/2018 1:44 PM EDT Faxed orders requesting pt be tested for cannabis levels documented in this encounter Plan of Treatment Not on file documented as of this encounter Visit Diagnoses Not on filedocumented in this encounter Care Teams Front Office Assistant Relationship Specialty Start Date End Date Jean-Paul Carranza MD PCP - General Internal Medicine 06/04/18 11/10/19 Kyle Chavez MD [address] [place] [address] PCP - General Internal Medicine 11/11/19 11/21/22 [facility], Pcp [address] [place], [place] [phone] PCP - General Internal Medicine 11/22/22 11/24/22 Kyle Chavez MD [address] [place] [address] PCP - General Internal Medicine 11/25/22 Bravo Edwards MD, PHD [address] [place] [address] Specialist Neurosurgery 06/10/21 documented as of this encounter
--- OUTSIDE RECORDS SUMMARY | 2024-07-10 15:03 | XMS_ITS | Encounter Summary ---
Author Organization [facility] Address [address] [place] [address] Care Team Providers Care Gin Pole Operator Name Role Phone Kyle Chavez MD Primary Care Provider Bravo Edwards MD, PHD Unavailable [facility], Pcp Primary Care Provider [facility] Kyle Chavez MD Primary Care Provider [phone] Encounter Details Date Type Department Care Team Description 07/16/2021 Pt. Non Urgent Medical Question Adult Medicine [address] [phone] Kyle Chavez MD [address] [place] [address] [phone] Social History Tobacco Use Types Packs/Day Years [...] Telephone Encounter - Idania Tatum C.M.A. - 07/16/2021 10:25 AM EDTFrom: Perla BellZack To: Jose Chavez Sent: 07/16/2021 9:58 AM EDT Subject: Neck pain Hi Dr Chavez! It will be 3 weeks this Monday that I really hurt my neck. I go to see my surgeon on the . In the meantime I am in so much pain from my right shoulder blade around to the front of my ribs. Is there anything we could do? Can I increase my Lyrica? It even hurts to take a deep breath. Can you please call me so we may talk abo ut it? Thank you for your time.... Perla documented in this encounter Plan of Treatment Not on file documented as of this encounter Visit Diagnoses Not on filedocumented in this encounter Care Teams Gin Pole Operator Relationship Specialty Start Date End Date Kyle Chavez MD [address] [place], [place] [phone] PCP - General Internal Medicine 11/11/19 11/21/22 [facility] Pcp [address] [place], [place] [phone] PCP - General Internal Medicine 11/22/22 11/24/22 Kyle Chavez MD [address] [place] [address] PCP - General Internal Medicine 11/25/22 Bravo Edwards MD, PHD [address] [place], [place] [phone] Specialist Neurosurgery 06/10/21 documented as of this encounter
--- OUTSIDE RECORDS SUMMARY | 2024-07-10 15:03 | XMS_ITS | Encounter Summary ---
Author Organization [facility] Address [address] [place] [address] Care Team Providers Care Supervisor International Reservations Name Role Phone Kyle Chavez MD Primary Care Provider [phone] Bravo Edwards MD, PHD Unavailable [facility], Pcp Primary Care Provider [facility] Kyle Chavez MD Primary Care Provider [phone] Encounter Details Date Type Department Care Team Description 05/28/2021 Telephone Adult Medicine [facility] [address] [place] [address] [phone] Julienne Campbell PA-C [address] [place] [address] [phone] Social History Tobacco Use Types Packs/Day Years [...] filedocumented in this encounter Care Teams Supervisor International Reservations Relationship Specialty Start Date End Date Kyle Chavez MD [address] [place] [address] PCP - General Internal Medicine 11/11/19 11/21/22 [facility], Pcp [address] [place], [place] [phone] PCP - General Internal Medicine 11/22/22 11/24/22 Kyle Chavez MD [address] [place] [address] PCP - General Internal Medicine 11/25/22 Bravo Edwards MD, PHD [address] [place] [address] Specialist Neurosurgery 06/10/21 documented as of this encounter
--- OUTSIDE RECORDS SUMMARY | 2024-07-10 15:03 | XMS_ITS | Encounter Summary ---
Author Organization [facility] Address [address] [place] [address] Care Team Providers Care Automatic Shirring Machine Operator Name Role Phone Jean-Paul Carranza MD Primary Care Provider Unavail Kyle Camejo MD Primary Care Provider [phone] Bravo Edwards MD, PHD Unavailable [facility], Pcp Primary Care Provider UnavailKyle Putnam MD Primary Care Provider [phone] Reason for Visit * Reason Onset Date Comments refill request 02/12/2019 Encounter Details Date Type Department Care Team Description 02/12/2019 Refill Adult Medicine [address] [address] Jean-Paul Carranza MD refill request Social History [...] Telephone Encounter - Elmer Sethi C.M.A. - 02/13/2019 9:18 AM EDT Message left for patient to return my call. * Telephone Encounter - Jean-Paul Carranza MD - 02/12/2019 5:11 PM EDT Needs follow up appt. * Telephone Encounter - Anisa Rubio M.A. - 02/12/2019 4:14 PM EDT 10/19/18 last refill * Telephone Encounter - Merle Shine - 02/12/2019 4:10 PM EDT Patient would like script to be: E-PRESCRIBED/FAXED TO PHARMACY WHEN WAS THE PATIENT'S LAST APPOINTMENT IN ADULT MEDICINE? 10/06/18 WHEN WAS THE LAST TIME THE PATIENT SAW THEIR PCP? 08/14/18 Does patient have an upcoming appointment? No - states she will call back to schedule (THE MEDICATION REQUESTED IS ON THE MED [...] N/A Patients current insurance carrier is: Payor: [employer] [facility] [employer] MCR / Plan: [facility] ALLI[facility] / Product Type: HMO [id number] documented in this encounter Plan of Treatment Not on file documented as of this encounter Visit Diagnoses Not on filedocumented in this encounter Care Teams Automatic Shirring Machine Operator Relationship Specialty Start Date End Date Jean-Paul Carranza MD PCP - General Internal Medicine 06/04/18 11/10/19 Kyle Chavez MD [address] [place] [address] PCP - General Internal Medicine 11/11/19 11/21/22 [facility], [place] [address] PCP - General Internal Medicine 11/22/22 11/24/22 Kyle Chavez MD [address] [place] [address] PCP - General Internal Medicine 11/25/22 Bravo Edwards MD, PHD [address] [place] [address] Specialist Neurosurgery 06/10/21 documented as of this encounter
--- OUTSIDE RECORDS SUMMARY | 2024-07-10 15:03 | XMS_ITS | Encounter Summary ---
Author Organization [facility] Address [address] [place] [address] Care Team Providers Care Construction Equipment Mechanic Name Role Phone Kyle Chavez MD Primary Care Provider [phone] Bravo Edwards MD, PHD Unavailable [facility], Pcp Primary Care Provider [facility] Kyle Chavez MD Primary Care Provider [phone] Encounter Details Date Type Department Care Team Description 07/05/2021 Pt. Non Urgent Medical Question Adult Medicine [address] [phone] Kyle Chavez MD [address] [place] [address] [phone] Social History Tobacco Use Types Packs/Day Years [...] on filedocumented in this encounter Care Teams Construction Equipment Mechanic Relationship Specialty Start Date End Date Kyle Chavez MD [address] [place] [address] PCP - General Internal Medicine 11/11/19 11/21/22 [facility], Pcp [address] [place] [address] PCP - General Internal Medicine 11/22/22 11/24/22 Kyle Chavez MD [address] [place] [address] PCP - General Internal Medicine 11/25/22 Bravo Edwards MD, PHD [address] [place] [address] Specialist Neurosurgery 06/10/21 documented as of this encounter
--- OUTSIDE RECORDS SUMMARY | 2024-07-10 15:03 | XMS_ITS | Encounter Summary ---
Author Organization [facility] Address [address] [place] [address] Care Team Providers Care House Admin Name Role Phone Jean-Paul Carranza MD Primary Care Provider Unavail Kyle Camejo MD Primary Care Provider Bravo Edwards MD, PHD Unavailable [facility], Pcp Primary Care Provider UnavailKyle Putnam MD Primary Care Provider [phone] Reason for Visit * Reason Onset Date Comments refill request 08/28/2018 Encounter Details Date Type Department Care Team Description 08/28/2018 Refill Adult Medicine [address] [address] Jean-Paul Carranza MD refill request Social History [...] ?? Patients current insurance carrier is: [facility] / Plan: [facility] / Product Type: HMO [id number]-[id number] ? documented in this encounter Plan of Treatment Not on file documented as of this encounter Visit Diagnoses Not on filedocumented in this encounter Care Teams House Admin Relationship Specialty Start Date End Date Jean-Paul Carranza MD PCP - General Internal Medicine 06/04/18 11/10/19 Kyle Chavez MD [address] [place] [address] PCP - General Internal Medicine 11/11/19 11/21/22 [place] [id number] PCP - General Internal Medicine 11/22/22 11/24/22 Kyle Chavez MD [address] [place], [place] [phone] PCP - General Internal Medicine 11/25/22 Bravo Edwards MD, PHD [address] [place], [place] [phone] Specialist Neurosurgery 06/10/21 documented as of this encounter
--- OUTSIDE RECORDS SUMMARY | 2024-07-10 15:03 | XMS_ITS | Encounter Summary ---
Author Organization [facility] Address [address] [place] [address] Care Team Providers Care Sewer And Inspector Name Role Phone Kyle Chavez MD Primary Care Provider [phone] Bravo Edwards MD, PHD Unavailable [facility], Pcp [facility] Kyle Chavez MD Primary Care Provider [phone] Reason for Visit * Reason Onset Date Comments infectious disease 05/22/2021 COVID testing Encounter Details Date Type Department Care Team Description 05/22/2021 Pt. Non Urgent Medic al Question Adult Medicine [address] [address] Mini Breen PA Social History Tobacco Use [...] - 05/24/2021 7:21 AM EST Please see [employer] message for COVIS testing assistance, thank you. documented in this encounter Miscellaneous Notes * Telephone Encounter - Carrie Roy M.A. - 05/24/2021 7:21 AM ESTFrom: Perla Dixon To: Jose Robin Sent: 05/22/2021 2:52 PM EST Subject: Covid tests Urgent [facility] [address] in [place] does not take my health insurance nor do any of them so Icannot go to an urgent care facility. Unless it's [facility]. Does [place] do covid testing at all? I do need to have my antibiotic changed but like I said I can't leave my mother alone long. documented in this encounter Plan of Treatment Not on file documented as of this encounter Visit Diagnoses Not on filedocumented in this encounter Care Teams Sewer And Inspector Relationship Specialty Start Date End Date Kyle Chavez MD [address] [place] [address] PCP - General Internal Medicine 11/11/19 11/21/22 [facility], Pcp [address] [place] [address] PCP - General Internal Medicine 11/22/22 11/24/22 Kyle Chavez MD [address] [place], [place] [phone] PCP - General Internal Medicine 11/25/22 Bravo Edwards MD, PHD [address] [place], [place] [phone] Specialist Neurosurgery 06/10/21 documented as of this encounter
--- OUTSIDE RECORDS SUMMARY | 2024-07-10 15:03 | XMS_ITS | Encounter Summary ---
Author Organization [facility] Address [address] [place] [address] Care Team Providers Care Policy Issue Clerk Name Role Phone Kyle Chavez MD Primary Care Provider [phone] Bravo Edwards MD, PHD Unavailable [facility], Pcp Primary Care [facility] Kyle Chavez MD Primary Care Provider [phone] Encounter Details Date Type Department Care Team Description 05/20/2021 Pt. Non Urgent Medic al Question Adult Medicine [address] [address] Mini Breen PA Social History Tobacco Use [...] M.A. - 05/20/2021 3:51 PM ESTFrom: Perla BellZack To: Jose Kelly Sent: 05/20/2021 3:49 PM [...] filedocumented in this encounter Care Teams Policy Issue Clerk Relationship Specialty Start Date End Date Kyle Chavez MD [address] [place] [address] PCP - General Internal Medicine 11/11/19 11/21/22 [facility] Pcp [address] [place], [place] [phone] PCP - General Internal Medicine 11/22/22 11/24/22 Kyle Chavez MD [address] [place] [address] PCP - General Internal Medicine 11/25/22 Bravo Edwards MD, PHD [address] [place], [place] [phone] Specialist Neurosurgery 06/10/21 documented as of this encounter
== END 2024-07-10 13:45 | disposition home or self-care (01) ==
LOC: HO.HNS 12:55
PROVIDERS: PCP Internal Medicine; Visit Provider Neurological Surgery
DX: Z98.1 Arthrodesis status (principal); M40.30 Flatback syndrome, site unspecified
CPT/HCPCS: 99024

== ENCOUNTER 2024-07-10 12:54 | Outpatient (REF) | payer OTHER, SELFPAY ==
--- NOTE | ~2024-07-10 | XR_ITS ---
EXAMINATION: XR CERVICAL SPINE CLINICAL INFORMATION: Z98.1 - Arthrodesis status COMPARISON: CT C-spine 07/05/2024. TECHNIQUE: 4 views of the cervical spine, inclusive of flexion and extension views, were obtained. FINDINGS: Redemonstration of anterior fusion with disc prosthesis and oblique endplate screws C3-4 and C4-5. Hardware appears intact, well seated, without definite periprosthetic lucency. There is a minimal left convex scoliosis, possibly positional. There is straightening of the normal lordosis. No fracture, compression deformity, or suspicious bone lesion. Craniocervical junction and C1-2 articulation intact and aligned. Neutral view demonstrates no definite subluxations. Mild narrowing of the C5-6 disc space and moderate narrowing of the C6-C7 disc space. Normal C2-3 disc space. Normal facet alignment with mild multilevel degenerative facet changes. On the flexion and extension were attempted, there appears to be little change in the curvature of the spine between the neutral and flexed/extended views. No developing subluxation. No evidence of instability although questionable patient effort. No prevertebral soft tissue swelling. Lung apices clear. Mandibular and maxillary dental implants. XR/XR cervical spine 4V IMPRESSION: 1. C3-4 and C4-5 anterior fusion without complication evident. No subluxations. 2. No evidence of instability on flexion and extension views although questionable patient effort. Electronically signed by: Brennon Zapien MD 07/11/2024 08:11 AM EDT
--- OUTSIDE RECORDS SUMMARY | 2024-07-10 15:13 | XMS_ITS | Encounter Summary ---
Author Organization [facility] Address [address] [place] [address] Care Team Providers Care Coal Pulverizing Operator Name Role Phone Bravo Edwards MD, PHD Unavailable Unava Kyle King MD Primary Care Provider [phone] Encounter Details Date Type Department Care Team Description 07/03/2023 Pt. Non Urgent Medical Question Adult Medicine [address] [phone] Kyle Chavez MD [address] [place] [address] Social History Tobacco Use Types Packs/Day Years [...] on filedocumented in this encounter Care Teams Coal Pulverizing Operator Relationship Specialty Start Date End Date Kyle Chavez MD [address] [place] [address] PCP - General Internal Medicine 11/25/22 Bravo Edwards MD, PHD Specialist Neurosurgery 06/10/21 documented as of this encounter
--- OUTSIDE RECORDS SUMMARY | 2024-07-10 15:13 | XMS_ITS | Encounter Summary ---
Author Organization [facility] Address [address] [place] [address] Care Team Providers Care Network Operations Lead Name Role Phone Bravo Edwards MD, PHD Unavailable Unava Kyle King MD Primary Care Provider [phone] Encounter Details Date Type Department Care Team Description 07/21/2023 Pt. Non Urgent Medical Question Adult Medicine [address] [address] Kyle Chavez MD [address] [place] [address] [phone] Social History Tobacco Use Types Packs/Day Years [...] reschedule that please? My phone number is [phone]. Sorry about the mix-up it wasn't on my calendar. Thank you for your time! documented in this encounter Plan of Treatment Not on file documented as of this encounter Visit Diagnoses Not on filedocumented in this encounter Care Teams Network Operations Lead Relationship Specialty Start Date End Date Kyle Chavez MD [address] [place] [address] PCP - General Internal Medicine 11/25/22 Bravo Edwards MD, PHD Specialist Neurosurgery 06/10/21 documented as of this encounter
--- OUTSIDE RECORDS SUMMARY | 2024-07-10 15:13 | XMS_ITS | Encounter Summary ---
Author Organization [facility] Address [address] [place] [address] Care Team Providers Care Web Production Designer Name Role Phone Bravo Edwards MD, PHD Unavailable Unava Kyle King MD Primary Care Provider [phone] Reason for Visit * Reason Onset Date Comments REFERRAL 01/14/2023 Pt asking about Referral to Podiatry Encounter Details Date Type Department Care Team Description 01/14/2023 Pt. Non Urgent Medical Question Adult Medicine [address] [phone] Kyle Chavez MD [address] [place] [address] Social History Tobacco Use Types Packs/Day Years [...] Chavez Sent: 01/14/2023 12:32 PM EDT Subject: Cook Helper Meat Hi Dr Chavez I need a referral to a building analyst/supervisor. I missed one when I was in the hospital and with everything going on about going into a senior care I missed another one. My toenails are really hurting me now. I send you a message on a 13 and I haven't heard anything back. I would appreciate it please. Thank you documented in this encounter Plan of Treatment Not on file documented as of this encounter Visit Diagnoses Not on filedocumented in this encounter Care Teams Web Production Designer Relationship Specialty Start Date End Date Kyle Chavez MD [address] [place] [address] PCP - General Internal Medicine 11/25/22 Bravo Edwards MD, PHD Specialist Neurosurgery 06/10/21 documented as of this encounter
--- OUTSIDE RECORDS SUMMARY | 2024-07-10 15:13 | XMS_ITS | Encounter Summary ---
Author Organization [facility] Address [address] [place] [address] Care Team Providers Care Conservation Officer Name Role Phone Bravo Edwarsd MD, PHD Unavailable Unava Kyle King MD Primary Care Provider [phone] Encounter Details Date Type Department Care Team Description 06/06/2023 Pt. Non Urgent Medical Question Adult Medicine [address] [address] Kyle Chavez MD [address] [place] [address] Social History Tobacco Use Types Packs/Day Years [...] in the ER and urgent care on [facility] has been having a 5-hour wait. So I would like to see a doctor please. documented in this encounter Plan of Treatment Not on file documented as of this encounter Visit Diagnoses Not on filedocumented in this encounter Care Teams Conservation Officer Relationship Specialty Start Date End Date Kyle Chavez MD [address] [place] [address] PCP - General Internal Medicine 11/25/22 Bravo Edwards MD, PHD Specialist Neurosurgery 06/10/21 documented as of this encounter
--- OUTSIDE RECORDS SUMMARY | 2024-07-10 15:13 | XMS_ITS | Encounter Summary ---
Author Organization [facility] Address [address] [place] [address] Care Team Providers Care Kindergarten Classroom Teacher Name Role Phone Lucia Duff MD Primary Care Provider Amy Maldonado MD Primary Care Provider Unavail able Jean-Paul Carranza MD Primary Care Provider Unavail able Kyle Chavez MD Primary Care Provider [phone] Bravo Edwards MD, PHD Unavailable Un[facility], Pcp Primary Care Provider Unavailabl e Kyle Chavez MD Primary Care Provider [phone] Reason for Visit * Reason Onset Date Comments refill request 02/22/2016 Encounter Details Date Type Department Care Team Description 02/22/2016 Refill Adult Medicine [address] [address] Lucia Duff MD refill request Social History [...] NO Patients current insurance carrier is: Payor: [facility] / Plan: [facility] INSURANCE / Product Type: OTHER documented in this encounter Plan of Treatment Not on file documented as of this encounter Visit Diagnoses Not on filedocumented in this encounter Care Teams Kindergarten Classroom Teacher Relationship Specialty Start Date End Date Lucia Duff MD PCP - General Internal Medicine 02/12/15 01/31/18 Amy Hernandez MD PCP - General Internal Medicine 02/01/18 06/03/18 Jean-Paul Carranza MD PCP - General Internal Medicine 06/04/18 11/10/19 Kyle Chavez MD [address] [place] [address] PCP - General Internal Medicine 11/11/19 11/21/22 [place] [phone] PCP - General Internal Medicine 11/22/22 11/24/22 Kyle Chavez MD [address] [place], [place] [address] PCP - General Internal Medicine 11/25/22 Bravo Edwards MD, PHD [address] [place], [place] [address] Specialist Neurosurgery 06/10/21 documented as of this encounter
--- OUTSIDE RECORDS SUMMARY | 2024-07-10 15:13 | XMS_ITS | Encounter Summary ---
Author Organization [facility] Address [address] [place] [address] Care Team Providers Care Dolphin Researcher Name Role Phone Lucia Duff MD Primary Care Provider Amy Maldonado MD Primary Care Provider Unavail able Jean-Paul Carranza MD Primary Care Provider Unavail able Kyle Chavez MD Primary Care Provider [phone] Bravo Edwards MD, PHD Unavailable [facility] Primary Care Provider Unavailabl Kyle Washington MD Primary Care Provider [phone] Encounter Details Date Type Department Care Team Description 07/13/2015 Business Doc Medical Records [address] [place] [address] Abstract, Provider Social History Tobacco Use Types [...] on filedocumented in this encounter Care Teams Dolphin Researcher Relationship Specialty Start Date End Date Lucia Duff MD PCP - General Internal Medicine 02/12/15 01/31/18 Amy Hernandez MD PCP - General Internal Medicine 02/01/18 06/03/18 Jean-Paul Carranza MD PCP - General Internal Medicine 06/04/18 11/10/19 Kyle Chavez MD [address] [place] [address] PCP - General Internal Medicine 11/11/19 11/21/22 [facility], Pcp [address] [place], [place] [phone] PCP - General Internal Medicine 11/22/22 11/24/22 Kyle Chavez MD [address] [place] [address] PCP - General Internal Medicine 11/25/22 Bravo Edwards MD, PHD [address] [place] [address] Specialist Neurosurgery 06/10/21 documented as of this encounter
--- OUTSIDE RECORDS SUMMARY | 2024-07-10 15:13 | XMS_ITS | Encounter Summary ---
Author Organization [facility] Address [address] [place] [address] Care Team Providers Care Web Editor Name Role Phone Bravo Edwards MD, PHD Unavailable Unava Kyle King MD Primary Care Provider [phone] Reason for Visit * Reason Onset Date Comments Form 05/08/2023 Encounter Details Date Type Department Care Team Description 05/08/2023 Pt. Non Urgent Medical Question Adult Medicine [address] [phone] Kyle Chavez MD [address] [place] [phone] Social History Tobacco Use Types Packs/Day Years [...] Telephone Encounter - Nancy Chavez L.P.N. - 05/08/2023 11:23 AM ESTFrom: Perla Zack To: Jose Chavez Sent: 05/08/2023 10:50 AM EST Subject: Paperwork Hi Dr Chavez, I will be in tomorrow around 10:00 to pickling machine operator those forms for housing. Thank you so very much for doing this I have scheduled transportation bringing me there around 10:00 10:15 tomorrow morning. They will be ready right? documented in this encounter Plan of Treatment Not on file documented as of this encounter Visit Diagnoses Not on filedocumented in this encounter Care Teams Web Editor Relationship Specialty Start Date End Date Kyle Chavez MD [address] [place] [address] PCP - General Internal Medicine 11/25/22 Bravo Edwards MD, PHD Specialist Neurosurgery 06/10/21 documented as of this encounter
--- OUTSIDE RECORDS SUMMARY | 2024-07-10 15:13 | XMS_ITS | Encounter Summary ---
Author Organization [facility] Address [address] [place] [address] Care Team Providers Care Senior Java Ui Developer Name Role Phone Kyle Chavez MD Primary Care Provider [phone] Bravo Edwards MD, PHD Unavailable [facility], Pcp [facility] Kyle Chavez MD Primary Care Provider Encounter Details Date Type Department Care Team Description 04/09/2021 Pt. Non Urgent Medic al Question Adult Medicine [address] [address] iMni Breen PA Social History Tobacco Use Types [...] filedocumented in this encounter Care Teams Senior Java Ui Developer Relationship Specialty Start Date End Date Kyle Chavez MD [address] [place] [address] PCP - General Internal Medicine 11/11/19 11/21/22 [facility], Pcp [address] [place] [address] PCP - General Internal Medicine 11/22/22 11/24/22 Kyle Chavez MD [address] [place] [address] PCP - General Internal Medicine 11/25/22 Bravo Edwards MD, PHD [address] [place] [address] Specialist Neurosurgery 06/10/21 documented as of this encounter
--- OUTSIDE RECORDS SUMMARY | 2024-07-10 15:13 | XMS_ITS | Encounter Summary ---
Author Organization [facility] Address [address] [place] [address] Care Team Providers Care Mattress Stuffer Name Role Phone Kyle Chavez MD Primary Care Provider [phone] Bravo Edwards MD, PHD Unavailable [facility], Pcp Primary Care Provider [facility] Kyle Chavez MD Primary Care Provider [phone] Encounter Details Date Type Department Care Team Description 01/07/2021 Pt. Non Urgent Medic al Question Adult Medicine [address] [address] Mini Breen PA Social History Tobacco Use [...] on filedocumented in this encounter Care Teams Mattress Stuffer Relationship Specialty Start Date End Date Kyle Chavez MD [address] [place] [address] PCP - General Internal Medicine 11/11/19 11/21/22 [facility], Pcp [address] [place] [address] PCP - General Internal Medicine 11/22/22 11/24/22 Kyle Chavez MD [address] [place] [address] PCP - General Internal Medicine 11/25/22 Bravo Edwards MD, PHD [address] [place] [address] Specialist Neurosurgery 06/10/21 documented as of this encounter
--- OUTSIDE RECORDS SUMMARY | 2024-07-10 15:13 | XMS_ITS ---
Author Organization [facility] Address [address] [facility] [place] [address] Care Team Providers Care Stemhole Borer Name Role Phone Cheko Chavez MD Primary Care Provider Julienne Cade Unavailable [phone] Allergies Allergen (clinical drug ingredient) Drug/Non Drug [...] Problem Acquired hammer toe of right foot (2195334950046 105) Other hammer toe(s) (acquired), right foot (M20.41) Active confirmed Problem Acquired hammer toe of left foot (7482344809230 103) Other hammer toe(s) (acquired), left foot (M20.42) Active confirmed Vital Signs Height 5ft3in in 03/06/2024 Weight 161 lbs 03/06/2024 BMI 28.52 kg/m2 03/06/2024 Encounters Encounter Location Date Provider Diagnosis [facility] [address] [address] 03/06/2024 Julienne Pop Type 2 diabetes mellitus [...] Reason: Provider Name:Julienne rock, 08/21/2024 11:00:00 AM, [address] [place] [address], [phone], Procedure Notes * Category Sub-Category Detail Notes [...] as necessary. Patient chooses, no pharmaceutical tx (59[address]) Keratoma Treatment Parring or Cutting o f Benign Hyperkeratotic Lesion(s) [address]95[address] ( More than 4 Lesions ) - The Benign hyperkeratotic lesions, as described above were pared, and/or cut utilizing a sterile 15 blade, tissue nippers, and/or dremel Progress Notes * SERGORehanahyDOB:1964 (58 yo F)Acc No.[id number]:03/06/2024 Progress Note Patient:?Perla Dixon Provider:?Julienne Pop DPM :1965???Age:58 Y???Sex:Female D ate:03/06/2024 Address:[address] [place] [address], [id number] Pcp:Cheko Chavez MD Subjective: * Chief Complaints: [...] as necessary. Patient chooses, no pharmaceutical tx (24274).?Keratoma Treatment:?Parring or Cutting of Benign Hyperkeratotic Lesion(s)?707[address] ( More than 4 Lesions ) - The Benign hyperkeratotic lesions, as described above were pared, and/or cut utilizing a sterile 15 blade, tissue nippers, and/or dremel.? * Procedure Codes:?69144 DEBRI DE NAIL, 6 OR MORE, Modifiers: XS 78070 TRIM SKIN LESIONS, OVER 4, Modifiers: XS [...] Pop DPM Date:?09/2023 Generated for Lia sigala/Billy/Kelsi on:?07/10/2024 03:13 PM EDT History and Physical Notes * [...]
--- OUTSIDE RECORDS SUMMARY | 2024-07-10 15:14 | XMS_ITS | Encounter Summary ---
Author Organization [facility] Address [address] [place] [address] Care Team Providers Care Moisture Meter Operator Name Role Phone Amy Hernandez MD Primary Care Provider Unavail Jean-Paul Ortega MD Primary Care Provider Unavail Kyle Camejo MD Primary Care Provider [phone] Bravo Edwards MD, PHD Unavailable [facility] Primary Care Provider UnavailKyle Putnam MD Primary Care Provider [phone] Reason for Visit * Reason Onset Date Comments refill request 05/17/2018 Encounter Details Date Type Department Care Team Description 05/17/2018 Refill Adult Medicine [address] [address] Martha Moran PA-C refill request Social History [...] on 05/07/2018 #90 by pranav Powell (ph: [phone] [facility] I called the office and the pt has been discharged from the practice due to no shows. 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, it was writtenJune of last year and [...] HAS AN APPOINTMENT WITH A PROVIDER @ [facility] ON june WITH PAT Hitchcock AND STATES [...] N/A Patients current insurance carrier is: Payor: [email or web address] [facility] MCR / Plan: [facility] / Product Type: HMO Lut-nid-Ciixvdz documented in this encounter Plan of Treatment Not on file documented as of this encounter Visit Diagnoses Not on filedocumented in this encounter Care Teams Moisture Meter Operator Relationship Specialty Start Date End Date Amy Hernandez MD PCP - General Internal Medicine 02/01/18 06/03/18 Jean-Paul Carranza MD PCP - General Internal Medicine 06/04/18 11/10/19 Kyle Chavez MD [address] [place] [address] PCP - General Internal Medicine 11/11/19 11/21/[address] [address] PCP - General Internal Medicine 11/22/22 11/24/22 Kyle Chavez MD [address] [place] [address] PCP - General Internal Medicine 11/25/22 Bravo Edwards MD, PHD [address] [place] [address] Specialist Neurosurgery 06/10/21 documented as of this encounter
--- OUTSIDE RECORDS SUMMARY | 2024-07-10 15:14 | XMS_ITS | Encounter Summary ---
Author Organization [facility] Address [address] [place] [address] Care Team Providers Care Latex Fashions Designer Name Role Phone Ben Nuno MD Primary Care Provider [phone] Lucia Duff MD Primary Care Provider Amy Maldonado MD Primary Care Provider Unavail able Jean-Paul Carranza MD Primary Care Provider Unavail able Kyle Chavez MD Primary Care Provider [phone] Bravo Edwards MD, PHD Unavailable [facility], Pcp Primary Care Provider Unavailabl Kyle Washington MD Primary Care Provider [phone] Reason for Visit * Reason Comments refill request NEEDS FOR TODAY Encounter Details Date Type Department Care Team Description 03/01/2004 Telephone Adult [address] [phone] Ben Nuno MD [address] [place] [address] refill request (NEEDS FOR TODAY ) [...] - 03/01/2004 4:26 PM ESTCALL RECEIVED. Contact: [phone] RX REFILLS MED NAME: ATIVAN DOSAGE: .5 [...] END OF THE DAY? YES Payor: [facility] INSURANCE Plan: [employer]URANCE Product Type: OTHER documented in this encounter Plan of Treatment Not on file documented as of this encounter Visit Diagnoses Not on filedocumented in this encounter Care Teams Latex Fashions Designer Relationship Specialty Start Date End Date Ben Nuno MD [address] [place] [address] PCP - General 12/16/1994 02/11/15 Lucia Duff MD [address] [place] [address] PCP - General Internal Medicine 02/12/15 01/31/18 Amy Hernandez MD [address] [place] [address] PCP - General Internal Medicine 02/01/18 06/03/18 Jean-Paul Carranza MD [address] [place] [address] PCP - General Internal Medicine 06/04/18 11/10/19 Kyle Chavez MD [address] [place] [address] PCP - General Internal Medicine 11/11/19 11/21/22 [facility], [place] [address] PCP - General Internal Medicine 11/22/22 11/24/22 Kyle Chavez MD [address] [place] [address] PCP - General Internal Medicine 11/25/22 Bravo Edwards MD, PHD [address] [place] [address] Specialist Neurosurgery 06/10/21 documented as of this encounter
--- OUTSIDE RECORDS SUMMARY | 2024-07-10 15:14 | XMS_ITS | Encounter Summary ---
Author Organization [facility] Address [address] [place] [address] Care Team Providers Care First Front Ventilator Name Role Phone Kyle Chavez MD Primary Care Provider [phone] Bravo Edwards MD, PHD Unavailable [facility], Pcp Primary Care Provider [facility] Kyle Chavez MD Primary Care Provider [phone] Encounter Details Date Type Department Care Team Description 08/19/2020 Pt. Non Urgent Medical Question Adult Medicine [address] [id number] Kyle Chavez MD [address] [place] [address] [phone] Social History Tobacco Use Types Packs/Day Years [...] on filedocumented in this encounter Care Teams First Front Ventilator Relationship Specialty Start Date End Date Kyle Chavez MD [address] [place] [address] PCP - General Internal Medicine 11/11/19 11/21/22 [facility], Pcp [address] [place] [address] PCP - General Internal Medicine 11/22/22 11/24/22 Kyle Chavez MD [address] [place] [address] PCP - General Internal Medicine 11/25/22 Bravo Edwards MD, PHD [address] [place] [address] Specialist Neurosurgery 06/10/21 documented as of this encounter
--- OUTSIDE RECORDS SUMMARY | 2024-07-10 15:14 | XMS_ITS | Encounter Summary ---
Author Organization [facility] Address [address] [place] [address] Care Team Providers Care Integrity Assessor Name Role Phone Armand Hernandez MD Primary Care Provider Unavail Jean-Paul Ortega MD Primary Care Provider Unavail Kyle Camejo MD Primary Care Provider [phone] Bravo Edwards MD, PHD Unavailable [facility] Pcp Primary Care Provider UnavailKyle Putnam MD Primary Care Provider [phone] Reason for Visit * Reason Onset Date Comments medication problems 05/30/2018 Encounter Details Date Type Department Care Team Description 05/30/2018 Refill Adult Medicine [address] [address] Armand Hernandez MD medication problems Social History [...] on filedocumented in this encounter Care Teams Integrity Assessor Relationship Specialty Start Date End Date Armand Hernandez MD PCP - General Internal Medicine 02/01/18 06/03/18 Jean-Paul Carranza MD PCP - General Internal Medicine 06/04/18 11/10/19 Kyle Chavez MD [address] [place], [place] [phone] PCP - General Internal Medicine 11/11/19 11/21/22 [facility], Pcp [address] [place] [address] PCP - General Internal Medicine 11/22/22 11/24/22 Kyle Chavez MD [address] [place] [address] PCP - General Internal Medicine 11/25/22 Bravo Edwards MD, PHD [address] [place], [place] [id number] Specialist Neurosurgery 06/10/21 documented as of this encounter
--- OUTSIDE RECORDS SUMMARY | 2024-07-10 15:14 | XMS_ITS | Encounter Summary ---
Author Organization [facility] Address [address] [place] [address] Care Team Providers Care Financial Representative Name Role Phone Amy Hernandez MD Primary Care Provider Unavail able Jean-Paul Carranza MD Primary Care Provider Unavail able Kyle Chavez MD Primary Care Provider [phone] Bravo Edwards MD, PHD Unavailable [facility], Pcp Primary Care Provider Unavailabl e Kyle Chavez MD Primary Care Provider [phone] Reason for Referral * Radiology Services (Routine) - Authorized/Booked Specialty Diagnoses / Procedures Referred By Minerva pina Referred To Contact Radiology Diagnoses Chronic right-sided low back pain with right-sided sciatica Procedures MRI OF LUMBAR SPINE W/WO CONTRAST MRI OF LUMBAR SPINE NO CONTRAST Martha Hopkins PA-C [address] [place] [address] Mri/[address] [address] Referral ID Status Reason Start Date Expiration Date V isits Requested Visits Authorized [facility] [id number] Authorized/ Booked 03/13/2018 05/13/2018 1 1 * Radiology Services (Routine) - Closed Specialty Diagnoses / Procedures Referred By Minerva pina Referred To Contact Radiology Diagnoses Abnormal head CT Procedures MRI OF BRAIN AND FURTHER SEQUENCES W/WO CON CONTRAST MRI OF BRAIN Martha Hopkins PA-C [address] [place] [address] Mri/[place] [address] [place] [address] Referral ID Status Reason Start Date Expiration Date V isits Requested Visits Authorized [id number] Closed 03/13/2018 06/10/2018 1 1 * Radiology Services (Routine) - Closed Specialty Diagnoses / Procedures Referred By Contollie t Referred To Contact Radiology Diagnoses Cervical radiculopathy Procedures MRI OF CERVICAL SPINE NO CONTRAST Martha Hopkins PA-C [address] [place] [address] Mri/[place] [address] [place] [address] Referral ID Status Reason Start Date Expiration Date V isits Requested Visits Authorized [id number] Closed 07/16/2018 09/15/2018 1 1 Reason for Visit * Reason Onset Date Comments Testing 03/12/2018 Encounter Details Date Type Department Care Team Description 03/12/2018 Telephone Radiology - [place] [address] [place] [address] Martha Hopkins PA-C Testing Social History Tobacco [...] bilateral facet and uncovertebral hypertrophy result in vygg-wb-[id number] spinal canal stenosis with mild bilateral, left [...] complex, bilateral facet anduncovertebral hypertrophy result in cyji-io-jmhwuixi spinal canal stenosis with mild bilateral, leftgreater [...] nos documented in this encounter Care Teams Financial Representative Relationship Specialty Start Date End Date Amy Hernandez MD PCP - General Internal Medicine 02/01/18 06/03/18 Jean-Paul Carranza MD PCP - General Internal Medicine 06/04/18 11/10/19 Kyle Chavez MD [address] [place] [address] PCP - General Internal Medicine 11/11/19 11/21/22 [facility], Pcp [address] [place] [address] PCP - General Internal Medicine 11/22/22 11/24/22 Kyle Chavez MD [address] [place] [address] PCP - General Internal Medicine 11/25/22 Bravo Edwards MD, PHD [address] [place] [address] Specialist Neurosurgery 06/10/21 documented as of this encounter
== END 2024-07-10 12:55 | disposition home or self-care (01) ==
LOC: HO.HOSX 12:54
PROVIDERS: PCP Internal Medicine; Visit Provider Neurological Surgery
DX: M40.30 Flatback syndrome, site unspecified (principal); Z98.1 Arthrodesis status
CPT/HCPCS: 72050; 72100; 99212

== ENCOUNTER → 2024-07-10 13:07 | Outpatient (BNV) | payer OTHER, SELFPAY | PROVIDERS: PCP Internal Medicine; Visit Provider Radiology Diagnostic Radiology | DX: Z98.1 Arthrodesis status (principal) | CPT/HCPCS: 72050 ==

== ENCOUNTER → 2024-07-13 08:00 | Outpatient (BNV) | payer OTHER, SELFPAY | PROVIDERS: PCP Internal Medicine; Visit Provider Radiology Diagnostic Radiology | DX: M54.50 Low back pain, unspecified (principal) | CPT/HCPCS: 72100 ==

== ENCOUNTER 2024-10-18 13:17 | Outpatient (AMB) | payer OTHER, SELFPAY ==
--- OUTSIDE RECORDS SUMMARY | 2024-10-18 13:20 | XMS_ITS | Encounter Summary ---
Author Organization [facility] Address [address] [place] [address] Care Team Providers Care Obstetrics Nurse Name Role Phone Bravo Edwards MD, PHD Unavailable Unava Kyle King MD Primary Care Provider [phone] Encounter Details Date Type Department Care Team Description 07/03/2023 Pt. Non Urgent Medical Question Adult Medicine [address] [id number] Kyle Chavez MD [address] [place] [address] Social History Tobacco Use Types Packs/Day Years [...] 9:17 AM ESTFrom: Perla Dixon To: Jose Cahvez Sent: 07/03/2023 9:13 AM EST Subject: Lyrica [...] on filedocumented in this encounter Care Teams Obstetrics Nurse Relationship Specialty Start Date End Date Kyle Chavez MD [address] [place] [address] PCP - General Internal Medicine 11/25/22 Bravo Edwards MD, PHD Specialist Neurosurgery 06/10/21 documented as of this encounter
--- NOTE | 2024-10-18 13:30 | HO.SPINEOV ---
Intake Visit Reasons: 3 month F/u Intake Note: Ms. Dixon is here today for her 3 month F/u. 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 Allergies amoxicillin (From AUGMENTIN) Allergy (Unknown, Verified 05/29/24 13:35) N/V/D cefaclor (From CECLOR) Allergy (Unknown, Verified 05/29/24 13:35) SWELLING clavulanic acid (From AUGMENTIN) Allergy (Unknown, Verified 05/29/24 13:35) N/V/D hydrocodone (From VICODIN) Allergy (Unknown, Verified 05/29/24 13:35) N/V flurazepam (From Dalmane) Allergy (Verified 05/29/24 13:35) Itching nitrofurantoin Allergy (Verified 05/29/24 13:35) Nausea and Vomiting Assessment & Plan Assessment & Plan (1) Flat back syndrome, postprocedural: Code(s): M40.30 - Flatback syndrome, site unspecified Category: Medical (2) 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 She is status post neck surgery with me. Her main complaint now is that she has pushed in a flexed position with back pain. She had an instrumented fusion done from L1-L5 by Dr. Sofia in the past. My suspicion is that she is having a flat back syndrome. On exam, she is standing in a flexed position. She is unable to extend. I ordered x-rays of the lumbar spine which gave me a lot of information. First she was fused from L1-L5 without introducing a lumbar lordosis. In other words, she has a flat back. The flat back causes adjacent thoracolumbar kyphosis above the fusion and finally it shows that the posterior instrumentation failed with breakage of bilateral rods. To restore her posterior, she will need to have the previous fusions on done create a lumbar lordosis and most likely the fusion needs to be extended towards the thoracic spine. I will obtain a CT scan of the lumbar spine to assess which levels are fused to come up with a final surgical plan. Then it is up to the patient if she wants to proceed. 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
== END 2024-10-18 14:26 | disposition home or self-care (01) ==
LOC: HO.HNS 13:18
PROVIDERS: PCP Internal Medicine; Visit Provider Neurological Surgery
DX: M40.30 Flatback syndrome, site unspecified (principal); T84.216A Breakdown (mechanical) of internal fixation device of vertebrae, initial encounter; M40.14 Other secondary kyphosis, thoracic region
CPT/HCPCS: 99213

== ENCOUNTER → 2024-10-18 13:17 | Outpatient (BNVA) | payer OTHER, SELFPAY | PROVIDERS: PCP Internal Medicine; Visit Provider Neurological Surgery | DX: M40.30 Flatback syndrome, site unspecified (principal); T84.216A Breakdown (mechanical) of internal fixation device of vertebrae, initial encounter; M40.14 Other secondary kyphosis, thoracic region | CPT/HCPCS: 99212 ==

== ENCOUNTER 2025-01-24 13:08 | Outpatient (AMB) | payer OTHER, SELFPAY ==
--- OUTSIDE RECORDS SUMMARY | 2024-08-21 07:00 | XMS_ITS ---
Author Organization [facility] Address [address] [place] [address] Care Team Providers Care Crane Crew Supervisor Name Role Phone Cheko Chavez MD Primary Care Provider Julienne Cade Unavailable [phone] Allergies Allergen (clinical drug ingredient) Drug/Non Drug [...] Active Encounters Encounter Location Date Provider Diagnosis [facility] [place] [address] [place] [address] 08/21/2024 Julienne Pop Plan Of Treatment Next Appt Details Provider Name:Julienne rock, 04/18/2025 11:00:00 AM, [address] [place] [address], [phone], Progress Notes * SERGORehanaArthurOB:1964 (59 yo F)Acc No.[id number]:08/21/2024 Progress Note Patient: Perla RICK Provider: Lary Pop DPM :1965 A ge:59 Y S ex:Female Date:08/21/2024 Address:[address] [place] [address], [facility] Pcp:Cheko Chavez MD Subjective: * Chief Complaints: [...] 0 08/21/2024 Generated for Lia sigala/Billy/Kelsi on: 0 01/24/2025 02:28 PM EDT History and Physical Notes * HPI (History of Present Illness) Category Sub-Category Detail Notes Category Not es At Risk footcare Pt States Last PCP Visit: Date: 4
--- NOTE | 2025-01-24 13:23 | A.SPINEOV_ITS ---
Intake Visit Reasons: f/up CT scan Intake Note: Ms. Dixon is here today to F/u on the results to her CT. and Discuss Surgery. 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 Allergies amoxicillin (From AUGMENTIN) Allergy (Unknown, Verified 01/24/25 13:24) N/V/D cefaclor (From CECLOR) Allergy (Unknown, Verified 01/24/25 13:24) SWELLING clavulanic acid (From AUGMENTIN) Allergy (Unknown, Verified 01/24/25 13:24) N/V/D hydrocodone (From VICODIN) Allergy (Unknown, Verified 01/24/25 13:24) N/V flurazepam (From Dalmane) Allergy (Verified 01/24/25 13:24) Itching nitrofurantoin Allergy (Verified 01/24/25 13:24) Nausea and Vomiting Assessment & Plan Assessment & Plan (1) Flat-back syndrome: Code(s): M40.30 - Flatback syndrome, site unspecified Category: Medical Plan: On 01/24/2025, I saw for follow-up Deric I do involved. We reviewed the CT scan that shows status post L1-L5 fusion, breakage of the right proximal stepan, fusion of the posterior elements L1- L5 in a flat back position. I also suspect osteopenia or osteoporosis. She states she never had a bone density scan done. I will send her for a bone scan to determine if she is even a surgical candidate. I did tell her that if we decide on surgery it is probably going to be his 3 stage surgery to correct her flat back syndrome. We spent 20 minutes in his consult to review imaging and discussing plan of care. Bravo Edwards MD, PhD Spine Fellowship Trained Neurosurgeon Director, [facility] Orders: Orders XR DEXA axial skeleton Today M40.30 - Flatback syndrome, site unspecified Coding Level of Care Code Est Pt Level 3 (47848) Diagnoses Flat-back syndrome M40.30
--- OUTSIDE RECORDS SUMMARY | 2025-01-24 14:28 | XMS_ITS | Clinical Summary ---
Author Organization [employer] Address [address] [facility] [address] [place] [address] Care Team Providers Care Functional Analyst Name Role Phone Unavailable Primary Care Provider Unavailabl e Immunizations Immunization Administration Dates Next Due Influenza Injectable Quadriv [...] Panel 1965 SDOH Screening 1965 Sigmoidoscopy 1965 Disability Screening 1965 Alcohol/Substance Use Screening 1975 Tobacco Screening [...] 1-dose series) 2023 COVID-19 Vaccine ( season) 2024 11/24/2021, 04/07/2021, 09/21/2020, Additional history exists Influenza Vaccine (#1) 2024 3, 04/26/2020, 04/26/2020, Additional history exists DTaP/Tdap/Td Vaccines (2 - Td or Tdap) 11/25/2031 11/24/2021 Meningococcal Vaccine Aged Out 11/16/2000 No oly danish eligible based on patient's age to complete this topic Pneumococcal Vaccine: 50+ Years Completed 11/24/2021, 11/24/2021 HIB Vaccines Aged Out No longer eligi ble based on patient's age to complete this topic HPV Vaccines Aged Out No longer eligi ble based on patient's age to complete this topic IPV Vaccines Aged Out No longer eligi ble based on patient's age to complete this topic Meningococcal B Vaccine Aged Out No l onger eligible based on patient's age to complete this topic RSV under 20 months Aged Out No longe r eligible based on patient's age to complete this topic Rotavirus Vaccines Aged Out No longer eligible based on patient's age to complete this topic Insurance [facility] [employer] ([facility] D-SNP) [place] [id number]
--- OUTSIDE RECORDS SUMMARY | 2025-01-24 14:29 | XMS_ITS | Patient Health Record ---
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 Name Role Phone Cheko Chavez MD Primary Care Provider Julienne Cade Unavailable [phone] Allergies Allergen (clinical drug ingredient) Drug/Non Drug Allergy documented on EMR Reaction Allergy Type Onset Date Status Spinal Injection (uncoded) Unknown Allergy Active amoxicillin / clavulanate Augmentin vomiting Drug Allergy Active Vicodin vomiting Drug Allergy Active cefaclor Cefaclor sick Drug Allergy Active codeine Codeine itchy Drug Allergy Active Results Component Value Reference Range Notes HEMOGLOBIN A1C (GLYCOHEMOGLO BIN) Reviewed date:05/29/2024 11:08:33 AM Interpretation: Performing Lab: Notes/Report: HEMOGLOBIN A1C % (HH) 6.2 HEMOGLOBIN A1C (GLYCOHEMOGLO BIN) Reviewed date:01/10/2025 10:36:13 AM Interpretation: Performing Lab: Notes/Report: HEMOGLOBIN A1C % (HH) 6.8 HEMOGLOBIN A1C (GLYCOHEMOGLO BIN) Reviewed date:10/14/2024 03:28:19 PM Interpretation: Performing Lab: Notes/Report: HEMOGLOBIN A1C % (HH) 6.8 Reason For Referral No Information Medications Medication [...] (M20.41,M20.42), Preulcerative Skin Lesion(s) (L85.1 03/06/2024 Active Suboxone 8.2mg 2 tablets 1x day [...] Customized Heat Molded Multidensity Innersoles (3 Pair) Dx: NIDDM/Polyneuropathy (E11.42), Hammertoe Foot Deformity (M20.41,M20.42), Preulcerative Skin Lesion(s) (L85.1); Duration: 365 days Active Ammonium Lactate 12 % 1 application to affected area Externally to feet Twice a day; Duration: 30 days Active Immunizations Vaccine Route Administration Date Status Comme nts Influenza Unknown 01/17/2023 Administered Influenza Unknown 01/30/2024 Administered Influenza Unknown 10/14/2024 Refused Social History Tobacco Use: Social History Observation Description Date Details (start date - stop date) Current Smoker NA - NA Tobacco use other than smoking: Question Answer Notes Are you an other tobacco user? No Tobacco Control (Standard) Question Answer Notes Tobacco use: Current smoker How often do you smoke cigarettes? Every day How many cigarettes a day do you smoke? 11-20 How soon after you wake up do you smoke your fir st cigarette? 6-30 minutes Are you interested in quitting? Not ready to jack t AUDIT-C (Standard) Question Answer Notes Did you have a drink contain ing alcohol in the past year? Yes How often did you have a dri nk containing alcohol in the past year? Monthly or less (1 point) How many drinks did you have on a typical day when you were drinking in the past year? 1 or 2 drinks (0 point) How often did you have six o r more drinks on one occasion in the past year? Never (0 point) Points 1 Interpretation Negative Problems Problem Type SNOMED Code ICD Code Onset Dates Problem Status W/U Status Risk Notes Problem Acquired hammer toe of right foot (6971642729535537 ) Other hammer toe(s) (acquired), right foot (M20.41) Active confirmed Problem Acquired hammer toe of left foot (8374740621387616 ) Other hammer toe(s) (acquired), left foot (M20.42) Active confirmed Problem Acquired hammer toe of lesser toe of left foot (3364378425343463 3) Hammer toe of left foot (M20.42) Active confirmed Problem Polyneuropathy due to diabetes mellitus (51350431) Type 2 diabetes mellitus with polyneuropathy (E11.42) Active confirmed Vital Signs Blood pressure diastolic 60 mm Hg 01/10/2025 Height 5ft 3in in 01/10/2025 Blood pressure systolic 120 mm Hg 01/10/2025 Weight 137 lbs 01/10/2025 BMI 24.27 kg/m2 01/10/2025 Encounters Encounter Location Date Provider Diagnosis [address] [address] 03/06/2024 Julienne Pop Type 2 diabetes mellitus with polyneuropathy E11.42 ; Other hammer toe(s) (acquired), right foot M20.41 ; Tinea unguium B35.1 and Other hammer toe(s) (acquired), left foot M20.[address] [address] 05/29/2024 Julienne Pop Type 2 diabetes mellitus with polyneuropathy E11.42 and Tinea unguium B35.[address] [address] 10/14/2024 Julienne Pop Type 2 diabetes mellitus with polyneuropathy E11.42 ; Other hammer toe(s) (acquired), right foot M20.41 ; Tinea unguium B35.1 and Other hammer toe(s) (acquired), left foot M20.[address] [address] 01/10/2025 Julienne Pop Type 2 diabetes mellitus with polyneuropathy E11.42 ; Other hammer toe(s) (acquired), right foot M20.41 ; Tinea unguium B35.1 and Other hammer toe(s) (acquired), left foot M20.42 [facility] [address] [place] [address] [facility] [address] [facility]/18[facility] [address] [facility] [address] [place] [address] 12/23/2024 Julienne Pop Assessments Encounter Date Diagnosis (ICD Code) Assessment Notes Treatment Notes Treatment Clinical Notes Section Notes 03/06/2024 Other hammer toe(s) (acquired), right foot (ICD-10 - M20.41) Patient Educated with: DIABETIC FOOT CARE INSTRUCTIONS. pdf (DIABETIC FOOT CARE INSTRUCTIONS. pdf) 03/06/2024 Type 2 diabetes mellitus with polyneuropathy (ICD-10 - E11.42) 05/29/2024 Tinea unguium (ICD-10 - B35.1) 05/29/2024 Type 2 diabetes mellitus with polyneuropathy (ICD-10 - E11.42) 10/14/2024 Other hammer toe(s) (acquired), right foot (ICD-10 - M20.41) Patient Educated with: DIABETIC FOOT CARE INSTRUCTIONS. pdf (DIABETIC FOOT CARE INSTRUCTIONS. pdf) 10/14/2024 Type 2 diabetes mellitus with polyneuropathy (ICD-10 - E11.42) 01/10/2025 Type 2 diabetes mellitus with polyneuropathy (ICD-10 - E11.42) 01/10/2025 Other hammer toe(s) (acquired), right foot (ICD-10 - M20.41) Patient Educated with: DIABETIC FOOT CARE INSTRUCTIONS. pdf (DIABETIC FOOT CARE INSTRUCTIONS. pdf) 10/14/2024 Tinea unguium (ICD-10 - B35.1) 03/06/2024 Tinea unguium (ICD-10 - B35.1) 03/06/2024 Other hammer toe(s) (acquired), left foot (ICD-10 - M20.42) 01/10/2025 Tinea unguium (ICD-10 - B35.1) 10/14/2024 Other hammer toe(s) (acquired), left foot (ICD-10 - M20.42) 01/10/2025 Other hammer toe(s) (acquired), left foot (ICD-10 - M20.42) 05/29/2024 Other Plan Of Treatment Next Appt Details Provider Name:Julienne rock, 04/18/2025 11:00:00 AM, [address] [place] [address], [phone], Insurance Providers Payer Name Payer Address Payer Phone Subscriber Number Group Number Insured Name Patient Relationship to Insured Coverage Start Date Coverage End Date [facility] [employer] Claims [address] [facility] [place] [id number] Perla Pelaez Self - patient is the [...] ear tubes Dental Implant 05/2021 Neck fusion 06/2024
--- OUTSIDE RECORDS SUMMARY | 2025-01-24 14:29 | XMS_ITS | Data Portability ---
Author Organization [place] - [facility], Allergy Address [address] [place] [address] Care Team Providers Care Management Department Chair Name Role Phone JENNIFER MORALEZ Primary Care Provider Assessment No assessment recorded. Plan of Treatment Reminders Order Date Submit Date Provider Last Modified By Organization Details Last Modified Time Details Appointments Establish ed 30 2024 11:30A M EPI JONES MD Not available Not available Not available Lab None recorded. Referral None recorded. Procedures None recorded. Surgeries None recorded. Imaging CT, neck, soft tissue, w/ contrast - labs at [place] 2024 025 [email or web address] [facility], [facility] [address], [address], 08/21/2024 11:15:04 Medication Orders None recorded. Patient TargetsNo targets recorded. Patient InstructionsNo instructions recorded. Reason for Referral None Reported. Results Created Date Observation Date Name Description Value Unit Range Abnormal Flag Note LastModifiedBy Organization Detail LastModifiedTime 07/10/1907/05/2024 CT, cervi donal spine , w/o contr ast No observ ation record ed. [email or web address] [facility] ([facility] [address] [facility] [address], [place], [address], 09/04/2024 14:16:40 09/05/19 25 09/03/2024 CT, neck, soft tissu e, w/ contr ast No observ ation record ed. [email or web address] [facility] [address] [facility] [address], [place], [address], 10/04/2024 14:13:44 Result Notes None recorded. Problems Name Problem SNOMED Code Status Onset Date Resolution Date Notes Provider Name and Address Organization Details Recorded Time Headache 47446942 Active 2018 Headache; Note: Date Diagnosed : 05/16/2018 3:23 PM (R51) Not Available [facility] 4 02:34:51 Snoring 20179485 Active 2018 Snoring; Note: Date Diagnosed : 05/16/2018 3:23 PM (R06.83) Not Available [facility] 4 02:34:46 Tobacco user 295383189 Active 2018 Tobacco use; Note: Date Diagnosed : 05/16/2018 3:23 PM (Z72.0) Not Available [facility] 4 02:34:55 Sensorine ural hearing loss 81495892 Active 2018 Sensorine ural hearing loss, unilatera l, right ear, with unrestric yuri hearing on the contralat eral side; Note: Date Diagnosed : 05/16/2018 3:22 PM (H90.41) Not Available [facility] 4 02:34:59 Conductiv e hearing loss, bilateral 412741734 Active 2018 Conductiv e hearing loss, bilateral ; Note: Date Diagnosed : 05/16/2018 2:50 PM (H90.0) Not Available [facility] 4 02:34:41 Itching of skin 628706015 Active 2018 Other pruritus; Note: Date Diagnosed : 05/16/2018 3:23 PM (L29.8) Not Available [facility] 4 02:34:50 Bilateral disorder of Eustachia n tubes 27334129540 45607 Active 2018 Other specified disorders of Eustachia n tube, bilateral ; Note: Date Diagnosed : 05/16/2018 2:50 PM (H69.83) Not Available [facility] 4 02:35:00 Abnormal findings on diagnosti c imaging of skull and head 787930933 Active 2024 EPI ESCALANTE MD [address] [place] [address], [place], [address] , [facility] 15:26:29 Chronic hoarsenes s 12351862707 05 Active 2024 EPI ESCALANTE MD [address] [facility],[place] [address], [place], [address] , [facility] 15:27:00 Tobacco dependenc e syndrome 95765002 Active 2024 EPI ESCALANTE MD [address] [facility],[place] [address], [place], [address] , [facility] 15:27:06 Problem Notes None recorded. Procedures Surgical History Date Name Laterality Status Provider Name and Address Organization Details Recorded Time 08/01/2024 FOL_Reflux _JMS completed EPI HOBBS MD [address] [facility],[place] [address], [place], [address], [facility] 08/01/2024 15:26:22 Imaging Results None recorded. Procedure Notes None recorded. Medical Equipment None Reported. Medications Name Sig Start Date Stop Date Status Note LastModified by Organization Details LastModified Time doxycyclin e hyclate 100 mg capsule TAKE 1 CAPSULE BY MOUTH TWICE DAILY FOR 10 DAYS DIRECTED. TAKE WITH AT LEAST 8 OZ OF WATER AND DO NOT LAY DOWN FOR 30 MINUTES AFTER active Not Available Not Available No t Available loperamide 2 mg capsule TAKE 1 CAPSULE BY MOUTH FOUR TIMES DAILY FOR UP TO 10 DAYS NEEDED FOR DIARRHEA active Not Available Not Available No t Available polyethyle ne glycol 3350 17 gram oral powder packet MIX AND TAKE 1 PACKET BY MOUTH EVERY DAY IN THE MORNING active Not Available Not Available No t Available tizanidine 4 mg tablet TAKE ONE TABLET BY MOUTH EVERY 6 HOURS NEEDED FOR MUSCLE SPASMS FOR UP TO 10 DAYS active Not Available Not Available No t Available Nystop 100,000 unit/gram topical powder 2016 active Medicatio n ID: [id number] Du ration Value: 25 Brand Name: Nystop Se nd Method: E-Prescri bed Subs Allowed: subs OK Specia l Instructi on: APPLY TOPICALLY TO RASH ON FOLDS BID PRN Medic ationGene ricName: Nystop Not Available Not Available Not Available glipizide 10 mg tablet 2017 active Medicatio n ID: [id number] Du ration Value: 30 Brand Name: glipizide Send Method: E-Prescri bed Subs Allowed: subs OK Specia l Instructi on: TK 1 T PO BID B MEALS Med icationGe nericName : glipizide Not Available Not Available Not Available venlafaxin e ER 150 mg capsule,ex tended release 24 hr TAKE TWO CAPSULES (300 MG TOTAL) BY MOUTH ONCE DAILY IN THE MORNING active Not Available Not Available No t Available sumatripta n 50 mg tablet active Not Available Not Available Not Available hydroxyzin e HCl 50 mg tablet TAKE 1 TABLET BY MOUTH EVERY 6 HOURS FOR 7 DAYS NEEDED FOR ANXIETY active Not Available Not Available No t Available acyclovir 400 mg tablet active Not Available Not Available Not Available doxycyclin e monohydrat e 100 mg tablet TAKE 1 TABLET BY MOUTH TWICE DAILY FOR 7 DAYS active Not Available Not Available No t Available acetaminop hen 500 mg tablet TAKE 1 TABLET BY MOUTH EVERY 6 HOURS NEEDED FOR PAIN OR FEVER active Not Available Not Available No t Available famotidine 20 mg tablet TAKE ONE TABLET (20 MG TOTAL) BY MOUTH ONCE DAILY IN THE MORNING active Not Available Not Available No t Available trazodone 100 mg tablet TAKE ONE TABLET BY MOUTH DAILY AT 5 PM EVERY EVENING active Not Available Not Available No t Available nicotine (polacrile x) 4 mg gum CHEW 1 PIECE BY MOUTH EVERY 2 HOURS active Not Available Not Available No t Available lorazepam 2 mg tablet TAKE 1 TABLET BY MOUTH 1 TIME 30 MINUTES BEFORE MRI NEEDED FOR ANXIETY active Not Available Not Available No t Available simvastati n 20 mg tablet 2016 active Medicatio n ID: [id number] Du ration Value: 90 Brand Name: simvastat in Send Method: E-Prescri bed Subs Allowed: subs OK Specia l Instructi on: TK 1 T PO HS Medica tionGener icName: simvastat in Not Available Not Available Not Available nicotine 21 mg/24 hr daily transderma l patch APPLY 1 PATCH TOPICALLY TO THE SKIN EVERY DAY active Not Available Not Available No t Available lorazepam 1 mg tablet TAKE 1 TABLET BY MOUTH UP TO THREE TIMES DAILY active Not Available Not Available No t Available ibuprofen 600 mg tablet TAKE 1 TABLET BY MOUTH THREE TIMES DAILY FOR 3 DAYS NEEDED FOR POST OPERATIVE PAIN active Not Available Not Available No t Available metformin ER 500 mg tablet,ext ended release 24 hr active Medicatio n ID: [id number] Du ration Value: 30 Brand Name: metformin Send Method: E-Prescri bed Subs Allowed: subs OK Medica tionGener icName: metformin Not Available Not Available Not Available clotrimazo le 1 % topical cream APPLY TOPICALLY TO THE AFFECTED AREA TWICE DAILY FOR 14 DAYS active Not Available Not Available No t Available itraconazo le 100 mg capsule active Medicatio n ID: [id number] Du ration Value: 30 Brand Name: itraconaz ole Send Method: E-Prescri bed Subs Allowed: subs OK Medica tionGener icName: itraconaz ole Not Available Not Available Not Available glycopyrro late 2 mg tablet TAKE ONE TABLET (2MG TOTAL) BY MOUTH THREE TIMES DAILY active Not Available Not Available No t Available naproxen 500 mg tablet 2017 active Medicatio n ID: [id number] Du ration Value: 30 Brand Name: naproxen Send Method: E-Prescri bed Subs Allowed: subs OK Specia l Instructi on: TK 1 T PO BID PRN P. TK WITH FOOD Medi cationGen ericName: naproxen Not Available Not Available Not Available oxycodone 5 mg tablet active Not Available Not Available Not Available buprenorph ine 8 mg-naloxon e 2 mg sublingual tablet DISSOLVE 2 TABLETS UNDER THE TONGUE EVERY DAY FOR 14 DAYS active Not Available Not Available No t Available pregabalin 150 mg capsule TAKE ONE CAPSULE BY MOUTH THREE TIMES DAILY active Not Available Not Available No t Available Lyrica 25 mg capsule active Medicatio n ID: [id number] Du ration Value: 30 Brand Name: Lyrica Se nd Method: E-Prescri bed Subs Allowed: subs OK Medica tionGener icName: Lyrica Not Available Not Available Not Available DermOtic Oil 0.01 % ear drops Instill 2 drop twice a week as directed 2018 active Medicatio n ID: [id number] Pr escribed By Name: Srinivasa Gaytan MD Brand Name: DermOtic Oil Send Method: E-Prescri bed Subs Allowed: subs OK Medica tionGener icName: DermOtic Oil Not Available Not Available Not Available Lantus Solostar U-100 Insulin 100 unit/mL (3 mL) subcutaneo us pen active Medicatio n ID: [id number] Du ration Value: 25 Brand Name: Lansilvanaus Solostar U-100 Insulin S end Method: E-Prescri bed Subs Allowed: subs OK Medica tionGener icName: Lantus Solostar U-100 Insulin Not Available Not Available Not Available carisoprod ol 250 mg tablet TAKE 1 TABLET BY MOUTH THREE TIMES DAILY NEEDED FOR MUSCLE PAIN active Not Available Not Available No t Available diclofenac 1 % topical gel APPLY 1 GRAM TOPICALLY TO THE AFFECTED AREA TWICE DAILY active Not Available Not Available No t Available Stimulant Laxative Plus 8.6 mg-50 mg tablet TAKE 2 TABLETS BY MOUTH EVERY DAY NEEDED FOR 28 DAYS active Not Available Not Available No t Available [facility] D 120 mg tablet,ext ended release TAKE 1 TABLET BY MOUTH EVERY 12 HOURS NEEDED FOR CONGESTIO N FOR UP TO 5 DAYS active Not Available Not Available No t Available naloxone 4 mg/actuati on nasal spray CALL 911. SPR CONTENTS OF ONE SPRAYER (0.1ML) INTO ONE NOSTRIL. REPEAT IN 2-3 MIN IF SYMPTOMS OF OPIOID EMERGENCY PERSIST, ALTERNATE NOSTRILS active Not Available Not Available No t Available BinaxNOW COVID-19 Ag Self Test kit TEST DIRECTED TODAY active Not Available Not Available No t Available Paxlovid 300 mg (150 mg x 2)-100 mg tablets in a dose pack TK 2 NIRMATREL VIR TS AND 1 RITONAVIR T TOGETHER PO BID FOR 5 DAYS active Not Available Not Available No t Available Vitals None Recorded Social History None recorded. Functional Status None recorded. Mental Status None recorded. Family History Nothing Reported. Medical History Condition Response Diabetes Y Hyperlipidemia Y Cancer Depression Y GERD/Reflux Y Gynecological HistoryNo gynecological history recorded. Obstetrics History GPAL:G 0 P 0 0 0 0 Past Encounters Encounter ID Performer Location Encounter Start Date Encounter Closed Date Diagnosis/Indication Diagnosis SNOMED-CT Code Diagnosis ICD10 Code Diagnosis IMO Codes Diagnosis Note [id number] EPI ESCALANTE MD [facility] [address] [address] 08/01/2024 14:56:43 08/01/2024 15:31:03 Abnormal findings on diagnostic imaging of skull and head 912760998 R93.0 Chronic hoarseness 76152 44552 105 R49.0 Tobacco de pendence syndrome 06631328 F17.200 Health Concerns Section Related Observation LastModified by Organization Detai ls LastModified Time None Recorded Concern Status LastModified by Organization Details LastModified Time None Recorded Advance Directives Directive None Recorded Payers Insurance Date Sequence Insurance Name Policy Number Policy Mejia Covered Member ID Mejia Member ID Guarantor Name 07/31/2024 1 [facility] - DOS ON OR AFTER 2022 - [facility] (MEDICARE REPLACEMENT/AD VANTAGE - HMO) Perla Zack [id number] Perla Dixon 07/26/2024 1 [facility] - DOS ON OR AFTER 2022 - MEDICARE ADVANTAGE [place] (MEDICARE REPLACEMENT/AD VANTAGE - PPO) Perla Dixon [id number] Perla Dixon Notes Date Note Type Note Provider Name and Address Organization Details Recorded Time 08/01/2024 text/html Patient with history of tobacco abuse and right mastoidectomy presents with abnormal findings on CT of the cervical spine. There was concerned about a calcified lesion around the cricoid cartilage. She has a greater than 29-stob-czuf history of tobacco use. 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 Has had some weight loss due to depression but has no eating, drinking or swallowing difficulties other than that which was associated with recent anterior cervical spine surgery. EPI HOBBS MD [address] [place] [address], [phone], [facility] - [facility] 08/01/2024 15:28:33 OBGyn Episode No OBEpisode recorded.
--- OUTSIDE RECORDS SUMMARY | 2025-01-24 14:29 | XMS_ITS | Clinical Summary ---
Author Organization [address] Address [address] [place] [address] [place] [address] Phone Care Team Providers Care Residential Energy Auditor Name Role Phone Kyle Chavez MD Primary Care Provider [phone] Allergies Active Allergy Reactions Criticality Noted Date Comments Amoxicillin-Pot Clavulanate 04/02/20 15 Vomiting, diarrhea Can take Amoxicillin or Penicillin Cefaclor 02/25/2005 Angioedema, itchy Flurazepam 05/04/2015 Itching Hydrocodone-Acetaminophen 04/02/2015 Nausea, vomiting Nitrofurantoin 06/27/2019 Nausea, vomiting Medications ammonium lactate (AMLACTIN) 12 % cream Apply topically 1 (one) time each day. Apply to both feet for dry skin and calluses 021 Active buprenorphine -naloxone (SUBOXONE) 8-2 mg per SL tablet Place 2 tablets under the tongue. Active FREESTYLE LANCETS MISC 1 EA by [...] (four) times a day. REGULAR 018 Active naproxen (NAPROSYN) 500 mg tablet Take 1 tablet (500 mg total) by mouth 2 (two) times a day with meals. 023 Active polyethylene glycol (MIRALAX) 17 gram packet Take 17 g by mouth 1 (one) time each day. MIXED WITH WATER OR JUICE 1 TO 2 TIMES DAILY NEEDED FOR CONSTIPATION 021 Active SUMAtriptan (IMITREX) 50 mg tablet Take 1 tablet (50 mg total) by mouth 1 (one) time if needed for migraine. MAY REPEAT DOSE 1 TIME AFTER 2 HOURS, NEEDED. MAX 2 IN 24 HOURS 9 tablet 025 Active diclofenac (VOLTAREN) 1 % topical gel Apply 1 g topically 2 (two) times a day. 100 g 025 Active cyclobenzapri ne (FLEXERIL) 10 mg tabletIndicat ions:Cervical disc disease,Neck muscle spasm Take 1 tablet (10 mg total) by mouth 3 (three) times a day if needed for muscle spasms. 30 tablet 2 025 Active pregabalin (LYRICA) 150 mg capsuleIndica tions:Cervica l disc disease TAKE ONE CAPSULE BY MOUTH THREE TIMES DAILY 270 capsule 1 025 Active famotidine (PEPCID) 20 mg tablet TAKE ONE TABLET (20 MG TOTAL) BY MOUTH ONCE DAILY IN THE MORNING 90 tablet 1 025 Active traZODone (DESYREL) 100 mg tablet TAKE ONE TABLET BY MOUTH DAILY AT 5 PM EVERY EVENING 90 tablet 1 025 Active tiZANidine (ZANAFLEX) 4 mg tablet TAKE 1 TABLET BY MOUTH EVERY 6 HOURS FOR UP TO 10 DAYS NEEDED FOR MUSCLE SPASMS 40 tablet 025 Active glycopyrrolat e (ROBINUL) 2 mg tablet TAKE ONE TABLET BY MOUTH THREE TIMES DAILY AT 9AM, 1PM AND 5PM 270 tablet 1 025 Active venlafaxine XR (EFFEXOR-XR) 150 mg 24 hr capsule TAKE TWO CAPSULES BY MOUTH EVERY MORNING 180 capsule 1 025 Active acetaminophen (TYLENOL) 500 mg capsule Take 2 capsules (1,000 mg total) by mouth every 6 (six) hours if needed for mild pain. 30 capsule 2 025 Active nystatin (MYCOSTATIN) cream Apply topically 2 (two) times a day. 30 g 2 025 Active lidocaine (LIDODERM) 5 % patchIndicati ons:Cervical disc disease Apply 1 patch topically 1 (one) time each day. Apply for no more than 12 hours in any 24 hour period 30 patch 1 Active glycopyrrolat e (ROBINUL) 2 mg tablet TAKE ONE TABLET BY MOUTH THREE TIMES DAILY AT 9AM, 1PM AND 5PM 270 tablet 1 025 2024 Discontinued nystatin (MYCOSTATIN) cream Apply topically 2 (two) times a day. 30 g 2 025 2024 Discontinued(R eorder) lidocaine (LIDODERM) 5 % patchIndicati ons:Cervical disc disease Apply 1 patch topically 1 (one) time each day. Apply for no more than 12 hours in any 24 hour period 30 patch 1 025 2024 Discontinued(R eorder) acetaminophen (TYLENOL) 500 mg capsule Take 2 capsules (1,000 mg total) by mouth every 6 (six) hours if needed for mild pain. 30 capsule 2 025 2024 Discontinued(R eorder) venlafaxine XR (EFFEXOR-XR) 150 mg 24 hr capsule TAKE 2 CAPSULES(300 MG) BY MOUTH 1 TIME EACH DAY IN THE MORNING 180 capsule 1 025 2024 Discontinued Active Problems Problem Noted Date Diagnosed Date Opiate dependence ([facility] V24, [facility] V28) 12/2023 Acid reflux 03/23/2020 Abnormal brain MRI 02/28/2018 Overview (02/07/2024): White matter lesions suspicious for MS and cortical atrophy. Patient referred to neurology Diabetic neuropathy ([facility] V24, [facility] V28) 1 Gait instability 02/28/2018 Overview (02/07/2024): Utilizes walker Type 2 diabetes mellitus ([facility] V24, [facility] V 28) 02/28/2018 Stress incontinence 07/26/2017 Hyperlipidemia LDL goal <100 12/02/2015 Morbid obesity ([facility] V24, [facility] V28) 2015 Chronic hepatitis C without hepatic coma ([facility] V24, [facility] V28) 05/18/2015 Overview (02/07/2024): Low level viral load (18,000) [...] 03/31/2015 Overview (02/07/2024): Recurrent /Dr Xochilt Yanes, [place] 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 Chronic back pain 02/25/2005 Overview (02/07/2024): S/p 2 lumbar fusion, 2 discectomy Resolved Problems Problem Noted Date Diagnosed Date Resolved Date History of heroin abuse ([facility] V24, [facility] V28) 04/02/2015 02/07/2024 Overview (02/07/2024): Now on suboxone Encounters Date Type Department Care Team Description 12/16/2024 Nurse Triage Adult Medicine [address] [phone] Kyle Chavez MD from Last 3 Months Immunizations Name Administration Dates Next Due Influenza Quadravalent, MDCK , 0.5ml, preservative free (Flucelvax) 6mo and older 02/27/2023 Influenza trivalent, with pr eservative (Fluzone; Afluria) 6mo and older 04/26/2020 Influenza, Unspecified 04/26/2020 Meningococcal Polysaccharide 11/16/2000 Pneumococcal conjugate 20 va lent (Prevnar 20, PCV 20) 2mo and older 11/24/2021 Medical History Medical History Date Comments History of heroin abuse ([facility] V24, [facility] V2 8) 04/02/2015 Now on suboxone Social History Tobacco Use Types Packs/Day Years Used Date Smoking Tobacco: Every Day Cigarettes Alcohol Use Standard Drinks/Week Comments Not Currently 0 (1 standard drink = 0.6 oz pur e alcohol) on holydays only Housing Instability Answer Date Recorde d Are [...] for your loved ones. For example, child development associate teacher or elderly care for an older adult? [...] is your living situation? 0 06/18/2024 Comments No Sex and Gender Information Value Date Recorded Sex Assigned at Not on file Legal Sex Female 10:07 AM EST Gender Identity Not on file Sexual Orientation Not on file Obstetrics History Last Filed Vital Signs Vital Sign Reading Time Taken Comments Blood Pressure 97/64 10/22/2024 11:00 AM EDT Pulse 72 10/22/2024 11:00 AM EDT Temperature 36.7 C (98.1 F) 10/22/2024 11:00 AM EDT Respiratory Rate 20 09/09/2024 1:55 PM EDT Oxygen Saturation 98% 10/22/2024 11:00 AM EDT Inhaled Oxygen Concentration - - Weight 69.9 kg (154 lb) 10/22/2024 11:00 AM EDT Height 160 cm (5' 3 ) 10/22/2024 11:00 AM EDT Body Mass Index 27.28 10/22/2024 11:00 AM EDT Plan of Treatment Upcoming Encounters Date Type Department Care Team (Late st Contact Info) Description 03/17/2025 1:00 PM EST Office Visit Adult Medicine [facility] [address], [place] [phone] Eduarda Paige NP [address] [place] [address] Health Maintenance Due Date Last Done Comments Breast Cancer Screening 1963 Diabetes: Annual Retina Eye Exam 1973 Hepatitis A Vaccines (1 of 2 - Risk 2-dose series) 1982 Zoster Vaccines (1 of 2) 2013 Colorectal Cancer Screening: Stool Based Tests (FOBT/FIT) 04/09/2022 HIV Screening 04/09/2022 Medicare Annual Wellness Visit 04/09/2022 Cervical Cancer Screening: Pap Smear 12/10/2022 12/11/2019, 10/09/2013 Hepatitis B Vaccines (1 of 3 - Risk 3-dose series) 2023 RSV Immunization Adult Patients (1 - Risk 60-74 years 1-dose series) 2023 Diabetes: Annual Foot Exam 11/20/2024 11/21/2023 COVID-19 Vaccine ( season) 2024 11/24/2021, 04/07/2021, 09/21/2020, Additional history exists Influenza Vaccine (#1) 2024 , 04/26/2020, 04/26/2020, Additional history exists Diabetes: Blood Sugar Control Test (HGBA1C) 03/12/2025 09/09/2024, 01/25/2024, 01/25/2024, Additional history exists Social Influencers of Health Screening 06/18/2025 06/18/2024 Diabetes: Annual Urine Albumin-Creatinine Ratio (uACR) 09/09/2025 09/09/2024, 01/25/2024, 07/21/2014 Diabetes: Annual GFR (Glomerular Filtration Rate) 09/09/2025 09/09/2024, 09/07/2023, 09/07/2023, Additional history exists Cholesterol Screening (Lipid Panel) 09/09/2029 09/09/2024, 01/25/2024, 01/25/2024, Additional history exists DTaP,Tdap,and Td Vaccines (2 - Td or Tdap) 11/25/2031 11/24/2021 Meningococcal ACWY Vaccine Aged Out 11/16/2000 N o longer eligible based on patient's age to complete this topic Hepatitis C Screening Completed 05/28/2015 Colorectal Cancer Screening: Colonoscopy Discontinued 04/06/2017 Pneumococcal Vaccine: 50+ Years Completed 11/24/2021 Depression Screening Completed 06/18/2024 HIB Vaccines Aged Out No longer eligi [...] Procedure Name Priority Date/Time Associated Diagnosis Comments MICROALBUMIN CREATININE URINE RATIO Routine 09/09/2024 3:08 PM EDT Type 2 diabetes mellitus with diabetic polyneuropathy, without long-term current use of insulin ([facility] V24, [facility] V28) COMPREHENSIVE METABOLIC PANEL Routine 09/09/2024 1:47 PM EDT Type 2 diabetes mellitus with diabetic polyneuropathy, without long-term current use of insulin ([facility] V24, [facility] V28) HEMOGLOBIN A1C Routine 09/09/2024 1:47 PM EDT Type 2 diabetes mellitus with diabetic polyneuropathy, without long-term current use of insulin ([facility] V24, [facility] V28) LIPID PANEL WITH REFLEX TO DIRECT LDL Routine 09/09/2024 1:47 PM EDT Type 2 diabetes mellitus with diabetic polyneuropathy, without long-term current use of insulin ([facility] V24, [facility] V28) DIABETES FOOT EXAM Routine 11/21/2023 COLONOSCOPY Routine 04/06/2017 HEPATITIS C SCREENING Routine 05/28/2015 PAP SMEAR Routine 10/09/2013 from Last 3 Months or Most Recently Relevant to Health Maintenance Results * (ABNORMAL) Microalbumin creatinine urine ratio (09/09/2024 3:08 PM EDT) Creatinine, Urine 260.0 mg/dL LAB CHEMISTRY METHOD 09/09/2024 5:36 PM EDT [facility] Microalb, Ur 32.8(H) 0.0 - 29.0 mg/L LAB CHEMISTRY METHOD 09/09/2024 5:36 PM EDT [facility] Microalb/Crea t Ratio 13 <30 mg/g creat LAB CHEMISTRY METHOD 09/09/2024 5:36 PM EDT [facility] Urine Urine specimen obtained by clean catch procedure / Unknown Non-blood Collection / Unknown 09/09/2024 3:08 PM EDT 09/09/2024 3:08 PM EDT us Kyle Chavez MD LAB URINE ORDERABLES Final Resu lt [facility] [address] [place] [address], [place] [phone] * (ABNORMAL) Lipid panel with reflex to direct LDL (09/09/2024 1:47 PM EDT) Cholesterol 148 0 - 200 mg/dL LAB CHEMISTRY METHOD 09/09/2024 4:56 PM EDT [facility] Triglycerides 179(H) 0 - 150 mg/dL LAB CHEMISTRY METHOD 09/09/2024 4:56 PM EDT [facility] HDL 41 >=40 mg/dL LAB CHEMISTRY METHOD 09/09/2024 4:56 PM EDT [facility] LDL Calculated 71 0 - 100 mg/dL LAB CHEMISTRY METHOD 09/09/2024 4:56 PM EDT [facility] VLDL Cholesterol Damion 35.8 mg/dL LAB CHEMISTRY METHOD 09/09/2024 4:56 PM EDT [facility] Non HDL Chol. (LDL+VLDL) 107 <145 mg/dL LAB CHEMISTRY METHOD 09/09/2024 4:56 PM EDT [facility] Chol/HDL Ratio 3.6 0.0 - 4.4 LAB CHEMISTRY METHOD 09/09/2024 4:56 PM EDT [facility] Blood Venous blood specimen / Unknown Venipuncture / Unknown 09/09/2024 1:47 PM EDT 09/09/2024 1:47 PM EDT us Kyle Chavez MD LAB BLOOD ORDERABLES Final Resu lt Performing Organization Address [facility]/ZIP Co de Phone Number [facility] [address] [place] [address], [place] [phone] * Hemoglobin A1c (09/09/2024 1:47 PM EDT) [facility] Hemoglobin A1C 6.1 <6.5 % LAB CHEMISTRY METHOD 09/09/2024 10:19 PM EDT [facility] Mean Bld Glu Estim. 128 mg/dL LAB CHEMISTRY METHOD 09/09/2024 10:19 PM EDT [facility] Blood Venous blood specimen / Unknown Venipuncture / Unknown 09/09/2024 1:47 PM EDT 09/09/2024 1:47 PM EDT us Kyle Chavez MD LAB BLOOD ORDERABLES Final Resu lt Performing Organization Address [facility]/ZIP Co de Phone Number [facility] [address] [place] [address], [place] [phone] * Comprehensive metabolic panel (09/09/2024 1:47 PM EDT) [facility] Sodium 138 133 - 145 mmol/L LAB CHEMISTRY METHOD 09/09/2024 4:56 PM EDT [facility] Potassium 3.9 3.5 - 5.5 mmol/L LAB CHEMISTRY METHOD 09/09/2024 4:56 PM EDT [facility] Chloride 102 96 - 110 mmol/L LAB CHEMISTRY METHOD 09/09/2024 4:56 PM EDT [facility] CO2 32 21 - 32 mmol/L LAB CHEMISTRY METHOD 09/09/2024 4:56 PM EDT [facility] Anion Gap 4 3 - 11 LAB CHEMISTRY METHOD 09/09/2024 4:56 PM EDT [facility] Glucose 87 70 - 100 mg/dL LAB CHEMISTRY [facility] BUN 9 5 - 25 mg/dL LAB CHEMISTRY METHOD 09/09/2024 4:56 PM [facility] Creatinine 0.54 0.50 - 1.10 mg/dL LAB CHEMISTRY METHOD 09/09/2024 4:56 PM [facility] eGFR 105 >=60 mL/min/1. 73m2 LAB CHEMISTRY METHOD 09/09/2024 4:56 PM [facility] Comment:Calculation based on the Chronic Kidney Disease Epidemiology Collaboration (CKD-EPI) equation refit without adjustment for race. BUN/Creatinine Ratio 16.7 LAB CHEMISTRY METHOD 09/09/2024 4:56 PM [facility] Calcium 9.4 8.5 - 10.5 mg/dL LAB CHEMISTRY METHOD 09/09/2024 4:56 PM [facility] AST (SGOT) 23 10 - 42 unit/L LAB CHEMISTRY METHOD 09/09/2024 4:56 PM [facility] ALT (SGPT) 29 10 - 60 unit/L LAB CHEMISTRY METHOD 09/09/2024 4:56 PM [facility] Alkaline Phosphatase 63 42 - 121 unit/L LAB CHEMISTRY METHOD 09/09/2024 4:56 PM [facility] Total Protein 7.2 6.0 - 8.0 g/dL LAB CHEMISTRY METHOD 09/09/2024 4:56 PM [facility] Albumin 3.9 3.2 - 5.0 g/dL LAB CHEMISTRY METHOD 09/09/2024 4:56 PM [facility] Total Bilirubin 0.3 0.0 - 1.4 mg/dL LAB CHEMISTRY METHOD 09/09/2024 4:56 PM [facility] Blood Venous blood specimen / Unknown Venipuncture / Unknown 09/09/2024 1:47 PM EDT 09/09/2024 1:47 PM EDT us Kyle Chavez MD LAB BLOOD ORDERABLES Final Resu lt [facility] [address] [place] [address], [place] [phone] * Diabetes Foot Exam (11/21/2023) Pathologist [facility] Diabetes: Annual Foot Exam abstracted Historical Provider HEALTH MAINTENANCE Final Result * Colonoscopy (04/06/2017) [facility] Colonoscopy no interpretation , abstracted Anatomical Region Laterality Modality Other Historical Provider HEALTH MAINTENANCE Final Result * Hepatitis C Screening (05/28/2015) [facility] Hepatitis C Screening abstracted Historical Provider HEALTH MAINTENANCE Final Result * Pap Smear (10/09/2013) Pathologist [facility] Pap smear no interpretation , abstracted Historical Provider HEALTH MAINTENANCE Final Result from Last 3 Months or Most Recently Relevant to Health Maintenance Insurance [employer] Member Subscriber Plan / Payer (Ef fective 2017-Present) Name:PERLA TROTTER Relation to Subscriber:Self Name:Perla Trotter Payer ID:[id number] Group ID:[id number] Type:Not on file Address: [facility] [place] [address] Care Teams Residential Energy Auditor Relationship Specialty Start Date End Date Kyle Chavez MD [address] [place] [phone] PCP - General Internal Medicine 06/18/24
--- OUTSIDE RECORDS SUMMARY | 2025-01-24 14:29 | XMS_ITS | Encounter Summary ---
Author Organization [employer] Address [address] [facility] [address] [place] [address] Care Team Providers Care Shorthand Reporter Name Role Phone Unavailable Primary Care Provider Unavailabl e Encounter Details Date Type Department Care Team (Late st Contact Info) Description 03/25/2024 Orders Only [facility] [address] [place] [address] Provider, Historical, Social History Tobacco Use Types [...]
== END 2025-01-24 14:53 | disposition home or self-care (01) ==
LOC: HO.HNS 13:09
PROVIDERS: PCP Internal Medicine; Visit Provider Neurological Surgery
DX: M40.30 Flatback syndrome, site unspecified (principal)
CPT/HCPCS: 99213

== ENCOUNTER → 2025-01-24 13:08 | Outpatient (BNVA) | payer OTHER, SELFPAY | PROVIDERS: PCP Internal Medicine; Visit Provider Neurological Surgery | DX: M40.36 Flatback syndrome, lumbar region (principal) | CPT/HCPCS: 99212 ==

== ENCOUNTER → 2025-03-18 14:00 | Outpatient (BNV) | payer OTHER, SELFPAY | PROVIDERS: PCP Internal Medicine; Visit Provider Radiology Diagnostic Radiology | DX: E28.39 Other primary ovarian failure (principal) | CPT/HCPCS: 77080 ==

== ENCOUNTER 2025-03-18 14:03 | Outpatient (REF) | payer OTHER, SELFPAY ==
--- OUTSIDE RECORDS SUMMARY | 2024-08-21 06:00 | XMS_ITS ---
Author Organization [facility] Address [address] [place] [address] Care Team Providers Care Exercise Manager Name Role Phone Cheko Chavez MD Primary Care Provider Julienne Cade Unavailable [phone] Allergies Allergen (clinical drug ingredient) Drug/Non Drug [...] Active Encounters Encounter Location Date Provider Diagnosis [facility] [place] [address] [place] [address] 08/21/2024 Julienne Pop Plan Of Treatment Next Appt Details Provider Name:Julienne rock, 04/18/2025 11:00:00 AM, [address] [place] [address], [phone], Progress Notes * SERGORehanaArthurOB:1964 (59 yo F)Acc No.[id number]:08/21/2024 Progress Note Patient: Perla RICK Provider: Lary Pop DPM :1965 A ge:59 Y S ex:Female Date:08/21/2024 Address:[address] [place] [address], [facility] Pcp:Cheko Chavez MD Subjective: * Chief Complaints: * * HPI: A t Risk footcare: Pt States Last PCP Visit: D ate 1 05/19/2023 * Medical History: A nxiety, [...] 0 08/21/2024 Generated for Lia sigala/Billy/Kelsi on: 05/19/2024 08:30 AM EST History and Physical Notes * HPI (History of Present Illness) Category Sub-Category Detail Notes Category Not es At Risk footcare Pt States Last PCP Visit: Date: 4
--- NOTE | ~2025-03-18 | MM_ITS ---
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 COMPARISON: Lumbar spine x-ray June 2024 FINDINGS: The bone mineral density of the left forearm is 0.750 g/cm2, corresponding to a T-score of -1.4, and a Z-score of -0.4. This is indicative of osteopenia. The bone mineral density of the left total hip is 0.977 g/cm2, corresponding to a T-score of -0.2, and a Z-score of 0.9. This is indicative of normal bone mineral density. The bone mineral density of the left femoral neck is 1.017 g/cm2, corresponding to a T-score of -0.1, and a Z-score of 1.2. This is indicative of normal bone mineral density. FRACTURE RISK: The FRAX index suggests a ten year probability of major osteoporotic fracture of 10.7%, and of hip fracture 0.6%. MM/XR DEXA axial skeleton IMPRESSION: Based on bone mineral density, and according to World Health Organization (WHO) criteria, the diagnosis is consistent with osteopenia based on lowest T score of -1.4 in the left forearm. Treatment Recommendations: NOF guidelines recommend consideration for treatment in postmenopausal women and men age 50 and older presenting with the following: -A hip or vertebral (clinical or morphometric) fracture. -T-score less than or equal to -2.5 at the femoral neck or spine after appropriate evaluation to exclude secondary causes. -Low bone mass at the hip or spine and a 10-year fracture probability by FRAX of greater than or equal to 3% for hip fracture or greater than or equal to 20% for major osteoporotic fracture based on the [place] adapted WHO algorithm. Other Recommendations: All treatment decisions require clinical judgment and consideration of individual patient factors, including patient preferences, comorbidities, previous drug use, risk factors not captured in the FRAX model (e.g. frailty, falls, vitamin D deficiency, increased bone turnover, interval significant decline in bone density) and possible under or overestimation of fracture risk by FRAX. Additional medical evaluation for secondary cause of low bone mineral density may be appropriate. FUTURE SCAN RECOMMENDATION: People with diagnosed cases of osteoporosis or at high risk for fracture should have regular bone mineral density tests. For patients eligible for Medicare, routine testing is allowed once every 2 years. The testing frequency can be increased to one year for patients who have rapidly progressing disease, those who are receiving or discontinuing medical therapy to restore bone mass, or have additional risk factors. Statistically, 68% of repeat scans fall within 1 SD (+/- 0.010 g/cm2 for AP spine L1-L4) and 1 SD (+/- 0.012 g/cm2 for femur total) FRAX is a trademark of the [employer] [facility] [place] [facility] Metabolic Bone Disease, a World Health Organization (WHO) Collaborating Center. Electronically signed by: Heike Anders MD 03/18/2025 02:56 PM MYRNA
--- OUTSIDE RECORDS SUMMARY | 2025-03-19 08:29 | XMS_ITS | Encounter Summary ---
Author Organization [employer] Address [address] [facility] [address] [place] [address] Care Team Providers Care Cardiology Fellow Name Role Phone Unavailable Primary Care Provider Unavailabl e Encounter Details Date Type Department Care Team (Late st Contact Info) Description 03/25/2024 Orders Only [facility] [address] [place] [address] Provider, Historical, Social History Tobacco Use Types [...]
--- OUTSIDE RECORDS SUMMARY | 2025-03-19 08:29 | XMS_ITS | Data Portability ---
Author Organization [place] - [facility], Allergy Address [address] [place] [address] Care Team Providers Care Tower Supervisor Name Role Phone JENNIFER MORALEZ Primary Care Provider [phone] Assessment No assessment recorded. Plan of Treatment Reminders Order Date Submit Date Provider Last Modified By Organization Details Last Modified Time Details Appointments Establish ed 30 2025 01:00P M EPI JONES MD Not available Not available Not available Lab None recorded. Referral None recorded. Procedures None recorded. Surgeries None recorded. Imaging CT, neck, soft tissue, w/ contrast - labs at [facility] 2024 025 [email or web address] [facility], [facility] [address], [address], 08/21/2024 11:15:04 Medication Orders None recorded. Patient TargetsNo targets recorded. Patient InstructionsNo instructions recorded. Reason for Referral None Reported. Results Created Date Observation Date Name Description Value Unit Range Abnormal Flag Note LastModifiedBy Organization Detail LastModifiedTime 07/10/1907/05/2024 CT, cervi donal spine , w/o contr ast No observ ation record ed. [facility] ([facility]) [address] [facility] [address], [place], [address], 09/04/2024 14:16:40 09/05/19 25 09/03/2024 CT, neck, soft tissu e, w/ contr ast No observ ation record ed. [facility] [address] [facility] [address], [place], [address], 10/04/2024 14:13:44 Result Notes None recorded. Problems Name Problem SNOMED Code Status Onset Date Resolution Date Notes Provider Name and Address Organization Details Recorded Time Headache 44784191 Active 2018 Headache; Note: Date Diagnosed : 05/16/2018 3:23 PM (R51) Not Available [facility] 4 02:34:51 Snoring 09384002 Active 2018 Snoring; Note: Date Diagnosed : 05/16/2018 3:23 PM (R06.83) Not Available [facility] 4 02:34:46 Tobacco user 668756781 Active 2018 Tobacco use; Note: Date Diagnosed : 05/16/2018 3:23 PM (Z72.0) Not Available [facility] 4 02:34:55 Sensorine ural hearing loss 96434969 Active 2018 Sensorine ural hearing loss, unilatera l, right ear, with unrestric yuri hearing on the contralat eral side; Note: Date Diagnosed : 05/16/2018 3:22 PM (H90.41) Not Available [facility] 4 02:34:59 Conductiv e hearing loss, bilateral 389363297 Active 2018 Conductiv e hearing loss, bilateral ; Note: Date Diagnosed : 05/16/2018 2:50 PM (H90.0) Not Available [facility] 4 02:34:41 Itching of skin 305235839 Active 2018 Other pruritus; Note: Date Diagnosed : 05/16/2018 3:23 PM (L29.8) Not Available [facility] 4 02:34:50 Bilateral disorder of Eustachia n tubes 95945341669 57414 Active 2018 Other specified disorders of Eustachia n tube, bilateral ; Note: Date Diagnosed : 05/16/2018 2:50 PM (H69.83) Not Available [facility] 4 02:35:00 Abnormal findings on diagnosti c imaging of skull and head 459750024 Active 2024 EPI ESCALANTE MD [address] [place] [address], [place], [address] , [facility] 15:26:29 Chronic hoarsenes s 17898557283 05 Active 2024 EPI ESCALANTE MD [address] [facility] [place] [address], [place], [address] , [facility] 15:27:00 Tobacco dependenc e syndrome 75825288 Active 2024 EPI ESCALANTE MD [address] [facility] [address], Aminata perez, [place], [address] , [facility] 15:27:06 Problem Notes None recorded. Procedures Surgical History Date Name Laterality Status Provider Name and Address Organization Details Recorded Time 08/01/2024 FOL_Reflux _JMS completed EPI HOBBS MD [address] [facility],[place] [address], [place], [address], [facility] 08/01/2024 15:26:22 Imaging Results None recorded. Procedure Notes None recorded. Medical Equipment None Reported. Medications Name Sig Start Date Stop Date Status Note LastModified by Organization Details LastModified Time latanopros t 0.005 % eye drops INSTILL ONE DROP IN EACH EYE EVERY EVENING active Not Available Not Available No t Available acetaminop hen 325 mg tablet TAKE 2 TABLETS BY MOUTH EVERY 6 HOURS FOR 21 DAYS NEEDED FOR FEVER active Not Available Not Available No t Available doxycyclin e hyclate 100 mg capsule TAKE [...] 17 gram oral powder packet MIX AND DRINK 1 PACKET BY MOUTH EVERY DAY IN THE MORNING active Not Available Not Available No t Available tizanidine 4 mg tablet TAKE 1 TABLET BY MOUTH EVERY 6 HOURS FOR UP TO 10 DAYS NEEDED FOR MUSCLE SPASMS active Not Available Not Available No t Available Nystop 100,000 unit/gram topical powder 2016 active Medicatio n ID: [id number] Du ration Value: 25 Brand Name: Nystop Se nd Method: E-Prescri bed Subs Allowed: subs OK Specia l Instructi on: APPLY TOPICALLY TO RASH ON FOLDS BID PRN Medic ationGene ricName: Nystop Not Available Not Available Not Available glipizide 10 mg tablet 2017 active Medicatio n ID: [id number] Du ration Value: 30 Brand Name: glipizide Send Method: E-Prescri bed Subs Allowed: subs OK Specia l Instructi on: TK 1 T PO BID B MEALS Med icationGe nericName : glipizide Not Available Not Available Not Available venlafaxin e ER 150 mg capsule,ex tended release 24 hr TAKE 2 CAPSULES BY MOUTH DAILY active Not Available Not Available No [...] Not Available Not Available No t Available propranolo l 10 mg tablet TAKE 1 TABLET BY MOUTH TWICE DAILY NEEDED FOR ANXIETY active Not Available Not [...] Not Available Not Available No t Available Mapap (acetamino phen) 500 mg capsule TAKE TWO CAPSULES (1,000MG TOTAL) BY MOUTH EVERY 6 HOURS NEEDED FOR MILD PAIN active Not Available Not Available No t Available lorazepam 2 mg tablet TAKE 1 TABLET BY MOUTH 1 TIME 30 MINUTES BEFORE MRI NEEDED FOR ANXIETY active Not Available Not Available No t Available cephalexin 500 mg capsule TAKE 1 CAPSULE BY MOUTH THREE TIMES DAILY FOR 7 DAYS active Not Available Not Available No t Available simvastati n 20 mg tablet 2016 active Medicatio n ID: [id number] Du ration Value: 90 Brand Name: tico in Send Method: E-Prescri bed Subs Allowed: subs OK Specia l Instructi on: TK 1 T PO HS Medica tionGener icName: simvastat in Not Available Not Available Not Available nystatin 100,000 unit/gram topical cream APPLY TOPICALLY TWICE DAILY active Not Available Not Available No t Available lidocaine 5 % topical patch APPLY 1 PATCH TOPICALLY ONCE DAILY FOR NO MORE THAN 12 HOURS IN ANY 24 HOUR PERIOD active Not Available Not Available No t Available nicotine 21 mg/24 hr daily transderma [...] release 24 hr active Medicatio n ID: [id number] Du ration Value: 30 Brand Name: metformin Send Method: E-Prescri bed Subs Allowed: subs OK Medica tionGener icName: metformin Not Available Not Available Not Available clotrimazo le 1 % topical cream APPLY TOPICALLY TO THE AFFECTED AREA TWICE DAILY FOR 14 DAYS active Not Available Not Available No t Available itraconazo le 100 mg capsule active Medicatio n ID: [id number] Du ration Value: 30 Brand Name: itraconaz ole Send Method: E-Prescri bed Subs Allowed: subs OK Medica tionGener icName: itraconaz ole Not Available Not Available Not Available glycopyrro late 2 mg tablet TAKE ONE TABLET BY MOUTH THREE TIMES DAILY AT 9AM, 1PM AND 5PM active Not Available Not Available No t Available naproxen 500 mg tablet 2017 active Medicatio n ID: [id number] Du ration Value: 30 Brand Name: naproxen Send Method: E-Prescri bed Subs Allowed: subs OK Specia l Instructi on: TK 1 T PO BID PRN P. TK WITH FOOD Medi cationGen ericName: naproxen Not Available Not Available Not Available oxycodone 5 mg tablet active Not Available Not Available Not Available buprenorph ine 8 mg-naloxon e [address] 2 TABLETS UNDER THE TONGUE EVERY DAY active Not Available Not Available No t Available pregabalin 150 mg capsule TAKE ONE CAPSULE BY MOUTH THREE TIMES DAILY active Not Available Not Available No t Available Lyrica 25 mg capsule active Medicatio n ID: [id number] Du ration Value: 30 Brand Name: Lyrica Se nd Method: E-Prescri bed Subs Allowed: subs OK Medica tionGener icName: Lyrica Not Available Not Available Not Available DermOtic Oil 0.01 % ear drops Instill 2 drop twice a week as directed 2018 active Medicatio n ID: [id number] Pr escribed By Name: Srinivasa Gaytan MD Brand Name: DermOtic Oil Send Method: E-Prescri bed Subs Allowed: subs OK Medica tionGener icName: DermOtic Oil Not Available Not Available Not Available Lantus Solostar U-100 Insulin 100 unit/mL (3 mL) subcutaneo us pen active Medicatio n ID: [id number] Du ration Value: 25 Brand Name: Lantus Solostar U-100 Insulin S end Method: E-Prescri [...] ICD10 Code Diagnosis IMO Codes Diagnosis Note [id number] EPI ESCALANTE MD [facility] [address] [address] 08/01/2024 14:56:43 08/01/2024 15:31:03 Abnormal findings on diagnostic imaging of skull and head 573361578 R93.0 Chronic hoarseness 96549 79908 105 R49.0 Tobacco de pendence syndrome 54855326 F17.200 Health Concerns Section Related Observation LastModified by Organization Detai ls LastModified Time None Recorded Concern Status LastModified by Organization Details LastModified Time None Recorded Advance Directives Directive None Recorded Payers Insurance Date Sequence Insurance Name Policy Number Policy Mejia Covered Member ID Mejia Member ID Guarantor Name 02/18/2025 1 [facility] - DOS ON OR AFTER 2022 - [facility] (MEDICARE REPLACEMENT/AD VANTAGE - HMO) Perla Dixon [id number] Perla Dixon 07/26/2024 1 [facility] - DOS ON OR AFTER 2022 - MEDICARE [place]VANTAGE [place] ([place]ICARE REPLACEMENT/AD VANTAGE - O) Perla Dixon [id number] Perla Dixon Notes Date Note Type Note Provider Name and Address Organization Details Recorded Time 08/01/2024 text/html Patient with history of tobacco abuse and right mastoidectomy presents with abnormal findings on CT of the cervical spine. There was concerned about a calcified lesion around the cricoid cartilage. She has a greater than 08-nyau-spwk history of tobacco use. 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 Has had some weight loss due to depression but has no eating, drinking or swallowing difficulties other than that which was associated with recent anterior cervical spine surgery. EPI HOBBS MD [address] [place] [address], [address], [place] - [facility] 08/01/2024 15:28:33 OBGyn Episode No OBEpisode recorded.
--- OUTSIDE RECORDS SUMMARY | 2025-03-19 08:29 | XMS_ITS | Clinical Summary ---
Author Organization [employer] Address [address] [facility] 7 [place] [address] Care Team Providers Care Windows Mobile Developer Name Role Phone Unavailable Primary Care Provider [...] Cancer Screening 1993 HPV/Cotest 1993 Mammogram 2003 RSV Patients and Patients Aged 60 years or older (1 - Risk 50-74 years 1-dose series) 2013 Zoster Vaccines (1 of 2) 2013 Hepatitis B Vaccines (1 of 3 - Risk 3-dose series) 2023 COVID-19 Vaccine ( season) 2024 [...] patient's age to complete this topic Insurance [facility] [employer] ([facility] [place] D-SNP)
--- OUTSIDE RECORDS SUMMARY | 2025-03-19 08:30 | XMS_ITS | Patient Health Record ---
[facility] Address [address] [place] [address] Care Team Providers Care Ecological Modeler Name Role Phone Cheko Chavez MD Primary Care Provider Julienne Cade Unavailable [phone] Allergies Allergen (clinical drug ingredient) Drug/Non Drug Allergy documented on EMR Reaction Allergy Type Onset Date Status Spinal Injection (uncoded) Unknown Allergy Active amoxicillin / clavulanate Augmentin vomiting Drug Allergy Active Vicodin vomiting Drug Allergy Active cefaclor Cefaclor sick Drug Allergy Active codeine Codeine itchy Drug Allergy Active Results Component Value Reference Range Notes HEMOGLOBIN A1C (GLYCOHEMOGLO BIN) Reviewed date:01/10/2025 10:36:13 [...] Problem Acquired hammer toe of right foot (6686668071205933 ) Other hammer toe(s) (acquired), right foot (M20.41) Active confirmed Problem Acquired hammer toe of left foot (8805681785304968 ) Other hammer toe(s) (acquired), left foot (M20.42) Active confirmed Problem Acquired hammer toe of lesser toe of left foot (4473459600397338 3) Hammer toe of left foot (M20.42) Active confirmed Problem Polyneuropathy due to diabetes mellitus (35012274) Type 2 diabetes mellitus with polyneuropathy (E11.42) Active confirmed Vital Signs Blood pressure diastolic 60 mm Hg 01/10/2025 Height 5ft 3in in 01/10/2025 Blood pressure systolic 120 mm Hg 01/10/2025 Weight 137 lbs 01/10/2025 BMI 24.27 kg/m2 01/10/2025 Encounters Encounter Location Date Provider Diagnosis [address] [address] 05/29/2024 Julienne Pop Type 2 diabetes mellitus with polyneuropathy E11.42 and Tinea unguium B35.[address] [address] 10/14/2024 Julienne Pop Type 2 diabetes mellitus with polyneuropathy E11.42 ; Other hammer toe(s) (acquired), right foot M20.41 ; Tinea unguium B35.1 and Other hammer toe(s) (acquired), left foot M20.[address] [address] 01/10/2025 Julienne Pop Type 2 diabetes mellitus with polyneuropathy E11.42 ; Other hammer toe(s) (acquired), right foot M20.41 ; Tinea unguium B35.1 and Other hammer toe(s) (acquired), left foot M20.42 [address] [address] 08/21/2024 Julienne Pop [address] [address] 11/18/2024 Julienne Pop [facility] [address] [address] 12/23/2024 Julienne Pop Assessments Encounter Date Diagnosis (ICD Code) Assessment Notes Treatment Notes Treatment Clinical Notes Section Notes 05/29/2024 Tinea unguium (ICD-10 - B35.1) 05/29/2024 [...] pdf) 10/14/2024 Tinea unguium (ICD-10 - B35.1) 01/10/2025 Tinea unguium (ICD-10 - B35.1) 10/14/2024 Other hammer toe(s) (acquired), left foot (ICD-10 - M20.42) 01/10/2025 Other hammer toe(s) (acquired), left foot (ICD-10 - M20.42) 05/29/2024 Other Plan Of Treatment Next Appt Details Provider Name:Julienne rock, 04/18/2025 11:00:00 AM, [address] [place] [address], [phone], Insurance Providers Payer Name Payer Address Payer Phone Subscriber Number Group Number Insured Name Patient Relationship to Insured Coverage Start Date Coverage End Date [facility] [employer] Claims [address] [place] [id number] Perla Pelaez Self - patient is the [...]
--- OUTSIDE RECORDS SUMMARY | 2025-03-19 08:31 | XMS_ITS | Clinical Summary ---
Author Organization [address] Address [address] [place] [address] [place] [address] Phone Care Team Providers Care Calenderer Name Role Phone Kyle Chavez MD Primary Care Provider [phone] Allergies Active Allergy Reactions Criticality Noted Date Comments Amoxicillin-Pot Clavulanate 04/02/20 15 Vomiting, diarrhea Can take Amoxicillin or Penicillin Cefaclor 02/25/2005 Angioedema, itchy Flurazepam 05/04/2015 Itching Hydrocodone-Acetaminophen 04/02/2015 Nausea, vomiting Nitrofurantoin 06/27/2019 Nausea, vomiting Medications ammonium lactate (AMLACTIN) 12 % cream Apply topically 1 (one) time each day. Apply to both feet for dry skin and calluses 10/30/19 21 Active buprenorphine -naloxone (SUBOXONE) 8-2 mg per [...] times a day. REGULAR 07/27/19 18 Active naproxen (NAPROSYN) 500 mg tablet Take 1 tablet (500 mg total) by mouth 2 (two) times a day with meals. 01/31/20 23 Active polyethylene glycol (MIRALAX) 17 gram packet Take 17 g by mouth 1 (one) time each day. MIXED WITH WATER OR JUICE 1 TO 2 TIMES DAILY NEEDED FOR CONSTIPATION 05/12/19 21 Active diclofenac (VOLTAREN) 1 % topical gel Apply 1 g topically 2 (two) times a day. 100 g 08/20/19 25 Active cyclobenzapri ne (FLEXERIL) 10 mg tabletIndicat ions:Cervical disc disease,Neck muscle spasm Take 1 tablet (10 mg total) by mouth 3 (three) times a day if needed for muscle spasms. 30 tablet 2 08/20/19 25 Active pregabalin (LYRICA) 150 mg capsuleIndica tions:Cervica l disc disease TAKE ONE CAPSULE BY MOUTH THREE TIMES DAILY 270 capsule 1 10/08/19 25 Active famotidine (PEPCID) 20 mg tablet TAKE ONE TABLET (20 MG TOTAL) BY MOUTH ONCE DAILY IN THE MORNING 90 tablet 1 11/12/19 25 Active traZODone (DESYREL) 100 mg tablet TAKE ONE TABLET BY MOUTH DAILY AT 5 PM EVERY EVENING 90 tablet 1 11/12/19 25 Active tiZANidine (ZANAFLEX) 4 mg tablet TAKE 1 TABLET BY MOUTH EVERY 6 HOURS FOR UP TO 10 DAYS NEEDED FOR MUSCLE SPASMS 40 tablet 12/07/19 25 Active glycopyrrolat e (ROBINUL) 2 mg tablet TAKE ONE TABLET BY MOUTH THREE TIMES DAILY AT 9AM, 1PM AND 5PM 270 tablet 1 01/09/20 25 Active venlafaxine XR (EFFEXOR-XR) 150 mg 24 hr capsule TAKE TWO CAPSULES BY MOUTH EVERY MORNING 180 capsule 1 01/09/20 25 Active acetaminophen (TYLENOL) 500 mg capsule Take 2 capsules (1,000 mg total) by mouth every 6 (six) hours if needed for mild pain. 30 capsule 2 01/14/20 25 Active nystatin (MYCOSTATIN) cream Apply topically 2 (two) times a day. 30 g 2 01/14/20 25 Active SUMAtriptan (IMITREX) 50 mg tablet Take 1 tablet (50 mg total) by mouth 1 (one) time if needed for migraine. MAY REPEAT DOSE 1 TIME AFTER 2 HOURS, NEEDED. MAX 2 IN 24 HOURS 9 tablet 02/13/20 25 Active lidocaine (LIDODERM) 5 % patchIndicati ons:Cervical disc disease APPLY 1 PATCH TOPICALLY ONCE DAILY FOR NO MORE THAN 12 HOURS IN ANY 24 HOUR PERIOD 30 patch 03/10/20 25 Active lidocaine (LIDODERM) 5 % patchIndicati ons:Cervical disc disease Apply 1 patch topically 1 (one) time each day. Apply for no more than 12 hours in any 24 hour period 30 patch 1 01/14/20 25 2024 Discontinued fluconazole (DIFLUCAN) 150 mg tablet Take 1 tablet (150 mg total) by mouth See administration instructions for 1 day. Take one tab now. Repeat in 7 days if symptoms persist. 2 tablet 02/26/20 25 2024 fluconazole (DIFLUCAN) 150 mg tablet Take 1 tablet (150 mg total) by mouth See administration instructions for 1 day. Take one tab now. Repeat in 7 days if symptoms persist. 2 tablet 02/28/20 25 2024 Active Problems Problem Noted Date Diagnosed Date Opiate dependence ([facility] V24, [facility] V28) 12/2023 Acid reflux 03/23/2020 Abnormal brain MRI 02/28/2018 Overview (02/07/2024): White matter lesions suspicious for MS and cortical atrophy. Patient referred to neurology Diabetic neuropathy ([facility] V24, [facility] V28) 1 Gait instability 02/28/2018 Overview (02/07/2024): Jamarcus rai Type 2 diabetes mellitus ([facility] V24, [facility] V 28) 02/28/2018 Stress incontinence 07/26/2017 Hyperlipidemia LDL goal <100 12/02/2015 Morbid obesity ([facility] V24, [facility] V28) 2015 Chronic hepatitis C without hepatic coma ([facility] V24, [facility] V28) 05/18/2015 Overview (02/07/2024): Low level viral load (18,000) Detectable June 2014 Undetectable May 2015 with no treatment Repeat in 6 months Pulmonary nodules 04/01/2015 Overview (02/07/2024): Seen on PET scan 2014 unchanged from 2013, documented stability on chest Ct from 06/2017 CT 09/2017 - ordered from [facility]: showing few small bilateral pulmonary nodules up to 4mm Insomnia 03/31/2015 Major depressive disorder 03/31/2015 Overview (02/07/2024): Recurrent /Dr Xochilt Yanes, [place] 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 Chronic back pain 02/25/2005 Overview (02/07/2024): S/p 2 lumbar fusion, 2 discectomy Resolved Problems Problem Noted Date Diagnosed Date Resolved Date History of heroin abuse ([facility] V24, [facility] V28) 04/02/2015 02/07/2024 Overview (02/07/2024): Now on suboxone Immunizations Immunization Administration Dates Next Due Influenza Quadravalent, MDCK , 0.5ml, preservative free (Flucelvax) 6mo and older 02/27/2023 Influenza trivalent, with pr eservative (Fluzone; Afluria) 6mo and older 04/26/2020 Influenza, Unspecified 04/26/2020 Meningococcal Polysaccharide 11/16/2000 Pneumococcal conjugate 20 va lent (Prevnar 20, PCV 20) 2mo and older 11/24/2021 Medical History Medical History Date Comments History of heroin abuse ([facility] V24, [facility] V2 8) 04/02/2015 Now on suboxone Social [...] your loved ones. For example, child care supervisor or elderly care for an older adult? [...] Date Recorded What is your living situation? Unrecognized valu e 06/18/2024 Comments No Sex and Gender Information [...] Care Team (Late st Contact Info) Description 03/26/2025 12:00 PM EST Office Visit Adult Medicine [facility] [address] [place] [address] Eduarda Paige NP [address] [place] [address] Health Maintenance Due Date Last Done Comments Breast Cancer Screening 1963 Diabetes: Annual Retina Eye Exam 1973 Hepatitis A Vaccines (1 of 2 - Risk 2-dose series) 1982 RSV Immunization Adult Patients (1 - Risk 50-74 years 1-dose series) 2013 Zoster Vaccines (1 of 2) 2013 Colorectal Cancer Screening: Stool Based Tests (FOBT/FIT) 04/09/2022 HIV Screening 04/09/2022 Medicare Annual Wellness Visit 04/09/2022 Cervical Cancer Screening: Pap Smear 12/10/2022 12/11/2019, 10/09/2013 Hepatitis B Vaccines (1 of 3 - Risk 3-dose series) 2023 Diabetes: Annual Foot Exam 11/20/2024 [...] polyneuropathy, without long-term current use of insulin ([facility] V24, [facility] V28) COMPREHENSIVE METABOLIC PANEL Routine 09/09/2024 1:47 PM EDT Type 2 diabetes mellitus with diabetic polyneuropathy, without long-term current use of insulin ([facility] V24, [facility] V28) HEMOGLOBIN A1C Routine 09/09/2024 1:47 PM EDT Type 2 diabetes mellitus with diabetic polyneuropathy, without long-term current use of insulin ([facility] V24, [facility] V28) LIPID PANEL WITH REFLEX TO DIRECT LDL Routine 09/09/2024 1:47 PM EDT Type 2 diabetes mellitus with diabetic polyneuropathy, without long-term current use of insulin ([facility] V24, [facility] V28) DIABETES FOOT EXAM Routine 11/21/2023 COLONOSCOPY Routine 04/06/2017 HEPATITIS C SCREENING Routine 05/28/2015 PAP SMEAR Routine 10/09/2013 from Last 3 Months or Most Recently Relevant to Health Maintenance Results * (ABNORMAL) Microalbumin creatinine urine ratio (09/09/2024 3:08 PM EDT) Creatinine, Urine 260.0 mg/dL LAB CHEMISTRY METHOD 09/09/2024 5:[address] [facility] Microalb, Ur 32.8(H) 0.0 - 29.0 mg/L LAB CHEMISTRY METHOD 09/09/2024 5:[address] [facility] Microalb/Crea t Ratio 13 <30 mg/g creat LAB CHEMISTRY METHOD 09/09/2024 5:[address] [facility] Urine Urine specimen obtained by clean catch procedure / Unknown Non-blood Collection / Unknown 09/09/2024 3:08 PM EDT 09/09/2024 3:08 PM EDT us Kyle Chavez MD LAB URINE ORDERABLES Final Resu lt [facility] [address] [place] [address], [place] [phone] * (ABNORMAL) Lipid panel with reflex to direct LDL (09/09/2024 1:47 PM EDT) Cholesterol 148 0 - 200 mg/dL LAB CHEMISTRY METHOD 09/09/2024 4:[address] [facility] Triglycerides 179(H) 0 - 150 mg/dL LAB CHEMISTRY METHOD 09/09/2024 4:[address] [facility] HDL 41 >=40 mg/dL LAB CHEMISTRY METHOD 09/09/2024 4:[address] [facility] LDL Calculated 71 0 - 100 mg/dL LAB CHEMISTRY METHOD 09/09/2024 4:[address] [facility] VLDL Cholesterol Damion 35.8 mg/dL LAB CHEMISTRY METHOD 09/09/2024 4:[address] [facility] Non HDL Chol. (LDL+VLDL) 107 <145 mg/dL LAB CHEMISTRY METHOD 09/09/2024 4:[address] [facility] Chol/HDL Ratio 3.6 0.0 - 4.4 LAB CHEMISTRY METHOD 09/09/2024 4:[address] [facility] Blood Venous blood specimen / Unknown Venipuncture / Unknown 09/09/2024 1:47 PM EDT 09/09/2024 1:47 PM EDT us Kyle Chavez MD LAB BLOOD ORDERABLES Final Resu lt [facility] [address] [place] [address], * Hemoglobin A1c (09/09/2024 1:47 PM EDT) Hemoglobin A1C 6.1 <6.5 % LAB CHEMISTRY METHOD 09/09/2024 10:[address] [facility] Mean Bld Glu Estim. 128 mg/dL LAB CHE[facility]STRY [facility] Blood Venous blood specimen / Unknown Venipuncture / Unknown 09/09/2024 1:47 PM EDT 09/09/2024 1:47 PM EDT us Kyle Chavez MD LAB BLOOD ORDERABLES Final Resu lt [facility] [address] [place] [address], [place] [phone] * Comprehensive metabolic panel (09/09/2024 1:47 PM EDT) Sodium 138 133 - 145 mmol/L LAB CHEMISTRY METHOD 09/09/2024 4:56 PM [facility] Potassium 3.9 3.5 - 5.5 mmol/L LAB CHEMISTRY METHOD 09/09/2024 4:56 PM [facility] Chloride 102 96 - 110 mmol/L LAB CHEMISTRY METHOD 09/09/2024 4:56 PM [facility] CO2 32 21 - 32 mmol/L LAB CHEMISTRY METHOD 09/09/2024 4:56 PM [facility] Anion Gap 4 3 - 11 LAB CHEMISTRY METHOD 09/09/2024 4:56 PM [facility] Glucose 87 70 - 100 mg/dL LAB CHEMISTRY METHOD 09/09/2024 4:56 PM [facility] BUN 9 5 - 25 mg/dL LAB CHEMISTRY METHOD 09/09/2024 4:56 PM [facility] Creatinine 0.54 0.50 - 1.10 mg/dL LAB CHEMISTRY METHOD 09/09/2024 4:56 PM [facility] eGFR 105 >=60 mL/min/1. 73m2 LAB CHEMISTRY METHOD 09/09/2024 4:56 PM [facility] Comment:Calculation based on the Chronic Kidney Disease Epidemiology Collaboration (CKD-EPI) equation refit without adjustment for race. BUN/Creatinine Ratio 16.7 LAB CHEMISTRY METHOD 09/09/2024 4:[address] [facility] Calcium 9.4 8.5 - 10.5 mg/dL LAB CHEMISTRY METHOD 09/09/2024 4:56 PM [facility] AST (SGOT) 23 10 - 42 unit/L LAB CHEMISTRY METHOD 09/09/2024 4:56 PM [facility] ALT (SGPT) 29 10 - 60 unit/L LAB CHEMISTRY METHOD 09/09/2024 4:56 PM [facility] Alkaline Phosphatase 63 42 - 121 unit/L LAB CHEMISTRY METHOD 09/09/2024 4:56 PM [facility] Total Protein 7.2 6.0 - 8.0 g/dL LAB CHEMISTRY METHOD 09/09/2024 4:56 PM [facility] Albumin 3.9 3.2 - 5.0 g/dL LAB CHEMISTRY METHOD 09/09/2024 4:56 PM [facility] Total Bilirubin 0.3 0.0 - 1.4 mg/dL LAB CHEMISTRY METHOD 09/09/2024 4:56 PM [facility] Blood Venous blood specimen / Unknown Venipuncture / Unknown 09/09/2024 1:47 PM EDT 09/09/2024 1:47 PM EDT Kyle Chavez MD LAB BLOOD ORDERABLES Final Resu lt [facility] [address] [place] [address], * Diabetes Foot Exam (11/21/2023) Pathologist [facility] Diabetes: Annual Foot Exam abstracted us Kyle Davis MD HEALTH MAINTENANCE Final Result * Colonoscopy (04/06/2017) [facility] Colonoscopy no interpretation , abstracted Anatomical Region Laterality Modality Other Historical Provider HEALTH MAINTENANCE Final Result * Hepatitis C Screening (05/28/2015) Hepatitis C Screening abstracted Historical Provider HEALTH MAINTENANCE Final Result * Pap Smear (10/09/2013) Pap smear no interpretation , abstracted Historical Provider HEALTH MAINTENANCE Final Result from Last 3 Months or Most Recently Relevant to Health Maintenance Insurance [employer] MEDIC[employer] Member Subscriber Plan / Payer (Ef fective 2017-Present) Name:PERLA TROTTER Relation to Subscriber:Self Name:Perla Trotter Payer ID:[id number] Group ID:[id number] Type:Not on file Address: [place] [address] [address] [address] Care Teams Calenderer Relationship Specialty Start Date End Date Kyle Chavez MD [address] [facility] [place] [address] PCP - General Internal Medicine 06/18/24
== END 2025-03-18 14:04 | disposition home or self-care (01) ==
LOC: HO.MAMMO 14:03
PROVIDERS: PCP Internal Medicine; Visit Provider Neurological Surgery
DX: M40.30 Flatback syndrome, site unspecified (principal); N95.9 Unspecified menopausal and perimenopausal disorder
CPT/HCPCS: 77080

== ENCOUNTER 2025-04-15 10:05 | Outpatient (REF) | payer OTHER, SELFPAY ==
--- OUTSIDE RECORDS SUMMARY | 2024-08-21 06:00 | XMS_ITS ---
Author Organization [facility] Address [address] [place] [address] Care Team Providers Care Maintenance Aide Name Role Phone Cheko Chavez MD Primary Care Provider Julienne Cade Unavailable [phone] Allergies Allergen (clinical drug ingredient) Drug/Non Drug Allergy documented on EMR Reaction Allergy Type Onset Date Status Spinal Injection (uncoded) Unknown Allergy Active amoxicillin / clavulanate Augmentin vomiting Drug Allergy Active Vicodin vomiting Drug Allergy Active cefaclor Cefaclor sick Drug Allergy Active codeine Codeine itchy Drug Allergy Active Medications Medication SIG (Take, Route, Frequency, Duration) Notes Start Date End Date Status Suboxone 8.2mg 2 tablets 1x day Active traZODone HCl 100 MG 1 tablet at bedtime Orally Once a day; Duration: 30 day(s) Active Extra Depth Orthopedic Shoes (1 Pair) with Customized Heat Molded Multidensity Innersoles (3 Pair) as directed Dx: NIDDM/Polyneuropathy (E11.42), Hammertoe Foot Deformity (M20.41,M20.42), Preulcerative Skin Lesion(s) (L85.1 03/06/2024 Active Ativan 1 MG 1 tablet at bedtime as needed Orally Once a day Not-Taking Extra Depth Orthopedic Shoes (1 Pair) with Customized Heat Molded Multidensity Innersoles (3 Pair) as directed Dx: NIDDM/Polyneuropathy (E11.42), Hammertoe Foot Deformity (M20.41,M20.42), Preulcerative Skin Lesion(s) (L85.1 04/22/2022 Active Effexor 350mg Active Famotidine 20 MG 1 tablet at bedtime as needed Orally Once a day; Duration: 30 day(s) Active Glycopyrrolate 2 MG as directed Orally Active Lyrica 150 MG 1 capsule Orally Once a day Active Ammonium Lactate 12 % 1 application to affected area Externally to feet Twice a day; Duration: 30 days Active Encounters Encounter Location Date Provider Diagnosis [facility] [place] [address] [place] [address] 08/21/2024 Julienne Pop Plan Of Treatment Next Appt Details Provider Name:Julienne rock, 04/18/2025 11:00:00 AM, [address] [place] [address], [phone], Progress Notes * SERGORehanaArthurOB:1964 (60 yo F)Acc No.[id number]:08/21/2024 Progress Note Patient: Perla RICK Provider: Lary Pop DPM :1965 A ge:59 Y S ex:Female Date:08/21/2024 Address:[address] [place] [address], [facility] Pcp:Cheko Chavez MD Subjective: * Chief Complaints: * * HPI: A t Risk footcare: Pt States Last PCP Visit: D ate: 1 05/19/2023 * Medical History: A nxiety, Back,Hip,and Knee pain, Broken bones, Cancer, Depression, Diabetes mellitus type ll, Fibromyalgia, Headaches/Migraines, Hepatitis, Multiple sclerosis, Numbness, Sciatica, Chronic sinusitis, Warts, Measles, Mumps, Chicken pox, Joint implants/screws, Plantar fasciitis, Neck fusion, Fallen arches. * Medications: T aking Ammonium Lactate 12 % Cream 1 application to affected area Externally to feet Twice a day , Taking Effexor , Notes to Pharmacist: 350mg, Taking Famotidine 20 MG Tablet 1 tablet at bedtime as needed Orally Once a day , Taking Glycopyrrolate 2 MG Tablet as directed Orally , Taking Lyrica 150 MG Capsule 1 capsule Orally Once a day , Taking Suboxone , Notes to Pharmacist: 8.2mg 2 tablets 1x day, Taking traZODone HCl 100 MG Tablet 1 tablet at bedtime Orally Once a day , Taking Extra Depth Orthopedic Shoes (1 Pair) with Customized Heat Molded Multidensity Innersoles (3 Pair) as directed Dx: NIDDM/Polyneuropathy (E11.42), Hammertoe Foot Deformity (M20.41,M20.42), Preulcerative Skin Lesion(s) (L85.1 , Taking Extra Depth Orthopedic Shoes (1 Pair) with Customized Heat Molded Multidensity Innersoles (3 Pair) as directed Dx: NIDDM/Polyneuropathy (E11.42), Hammertoe Foot Deformity (M20.41,M20.42), Preulcerative Skin Lesion(s) (L85.1 , Not-Taking/PRN Ativan 1 MG Tablet 1 tablet at bedtime as needed Orally Once a day * Allergies: C efaclor: sick, Codeine: itchy, Augmentin: vomiting, Vicodin: vomiting, Spinal Injection. Objective: * Vitals: Assessment: Plan: * Treatment: * Images: * The named appointment provid er may or may not be the originator of this progress note, and it is not deemed complete until electronically signed by the appointment provider. Sign off status: Pending * Provider: Lary Pop DPM Date: 0 08/21/2024 Generated for Lia sigala/Billy/Kelsi on: 1 06/16/2024 12:26 PM EST History and Physical Notes * HPI (History of Present Illness) Category Sub-Category Detail Notes Category Not es At Risk footcare Pt States Last PCP Visit: Date:: 03/19/20 24
--- NOTE | ~2025-04-15 | XR_ITS ---
EXAMINATION: XR SCOLIOSIS CLINICAL INFORMATION: M40.30 - Flatback syndrome, site unspecified COMPARISON: Previous cervical and lumbar spine x-ray June 2024 TECHNIQUE: AP and lateral views of the cervical thoracic and lumbar spine FINDINGS: ACDF at C3-4 and C4-5. Degenerative spondylosis and degenerative disc disease at C5-6 and C6-7. Multilevel degenerative spondylosis and degenerative disc disease in the thoracic spine. Posterior fusion hardware with bilateral rods and intrapedicular screws from L1 to L5. Interrupted bilateral rods between the L3 and L4 vertebral bodies and likely interrupted right stepan between the L1 and L2 vertebrae/just superior to the right L2 pedicle screw. This is similar to the June 2024 exam. Mild curvature of the thoracolumbar spine measuring 9 degrees convex to the right with apex at T12-L1. No fracture, dislocation or congenital bony anomaly. Constipation. Paraspinal soft tissues otherwise normal. XR/XR scoliosis survey IMPRESSION: ACDF in the cervical spine at C3-4 and C4-5. Bilateral posterior fusion hardware with rods and interpedicular screws from L1 to L5. Interrupted bilateral rods in between the L3 and L4 vertebrae and question the right stepan in between the L1 and L2 vertebrae. Mild curvature of the lower thoracic and upper lumbar spine convex to the right measuring 9 degrees. Electronically signed by: Heike Anders MD 04/15/2025 11:54 AM [facility]
--- OUTSIDE RECORDS SUMMARY | 2025-04-15 12:26 | XMS_ITS | Clinical Summary ---
Author Organization [employer] Address [address] [facility] 7 [place] [address] Care Team Providers Care Stem Threshing Machine Operator Name Role Phone Unavailable Primary Care [...] to complete this topic Insurance [facility] CORRECTION OPTIONS ([facility] D-SNP)
--- OUTSIDE RECORDS SUMMARY | 2025-04-15 12:26 | XMS_ITS | Encounter Summary ---
Author Organization [employer] Address [address] [facility] [address] [place] [address] Care Team Providers Care Clerk Analyst Name Role Phone Unavailable Primary Care Provider Unavailabl e Encounter Details Date Type Department Care Team (Late st Contact Info) Description 03/25/2024 Orders Only [facility] [address] [place] [address] Provider, Historical, Social History Tobacco Use Types [...]
--- OUTSIDE RECORDS SUMMARY | 2025-04-15 12:27 | XMS_ITS | Data Portability ---
Author Organization [place] - [facility], Allergy Address [address] [place] [address] Care Team Providers Care Banking Specialist Name Role Phone JENNIFER MORALEZ Primary Care Provider [phone] Assessment No assessment recorded. Plan of Treatment Reminders Order Date Submit Date Provider Last Modified By Organization Details Last Modified Time Details Appointments Establish ed 30 2025 01:00P M EPI JONES MD Not available Not available Not available Lab None recorded. Referral None recorded. Procedures None recorded. Surgeries None recorded. Imaging CT, neck, soft tissue, w/ contrast - labs at [place] 2024 025 [email or web address] [facility] [place], [facility] [address], [address], 08/21/2024 11:15:04 Medication Orders None recorded. Patient TargetsNo targets recorded. Patient InstructionsNo instructions recorded. Reason for Referral None Reported. Results Created Date Observation Date Name Description Value Unit Range Abnormal Flag Note LastModifiedBy Organization Detail LastModifiedTime 07/10/1907/05/2024 CT, cervi donal spine , w/o contr ast No observ ation record ed. [facility] ([facility]) [address] [facility] [address], [place], [address], 09/04/2024 14:16:40 09/05/19 25 09/03/2024 CT, neck, soft tissu e, w/ contr ast No observ ation record ed. [email or web address] [facility] [place] [address] [facility] [address], [place], [address], 10/04/2024 14:13:44 Result Notes None recorded. Problems Name Problem SNOMED Code Status Onset Date Resolution Date Notes Provider Name and Address Organization Details Recorded Time Headache 79020156 Active 2018 Headache; Note: Date Diagnosed : 05/16/2018 3:23 PM (R51) Not Available [facility] 4 02:34:51 Snoring 94631055 Active 2018 Snoring; Note: Date Diagnosed : 05/16/2018 3:23 PM (R06.83) Not Available [facility] 4 02:34:46 Tobacco user 634040848 Active 2018 Tobacco use; Note: Date Diagnosed : 05/16/2018 3:23 PM (Z72.0) Not Available [facility] 4 02:34:55 Sensorine ural hearing loss 39925726 Active 2018 Sensorine ural hearing loss, unilatera l, right ear, with unrestric yuri hearing on the contralat eral side; Note: Date Diagnosed : 05/16/2018 3:22 PM (H90.41) Not Available [facility] 4 02:34:59 Conductiv e hearing loss, bilateral 103247247 Active 2018 Conductiv e hearing loss, bilateral ; Note: Date Diagnosed : 05/16/2018 2:50 PM (H90.0) Not Available [facility] 4 02:34:41 Itching of skin 858863352 Active 2018 Other pruritus; Note: Date Diagnosed : 05/16/2018 3:23 PM (L29.8) Not Available [facility] 4 02:34:50 Bilateral disorder of Eustachia n tubes [id number] 20701 Active 2018 Other specified disorders of Eustachia n tube, bilateral ; Note: Date Diagnosed : 05/16/2018 2:50 PM (H69.83) Not Available [facility] 4 02:35:00 Abnormal findings on diagnosti c imaging of skull and head 159558084 Active 2024 EPI ESCALANTE MD [address] [place] [address], [place], [address] , [facility] 15:26:29 Chronic hoarsenes s 69687611223 05 Active 2024 EPI ESCALANTE MD [address] [facility] [place] [address], [place], [address] , [facility] 15:27:00 Tobacco dependenc e syndrome 82616614 Active 2024 EPI ESCALANTE MD [address] [facility] [email or web address] [address], [place], [place], [address] , [facility] 15:27:06 Problem Notes None recorded. Procedures Surgical History Date Name Laterality Status Provider Name and Address Organization Details Recorded Time 08/01/2024 FOL_Reflux _JMS completed EPI HOBBS MD [address] [facility],[place] [address], [place], [address], [facility] 08/01/2024 15:26:22 Imaging Results None recorded. Procedure [...] topical powder 2016 active Medicatio n ID: [id number] Du ration Value: 25 Brand Name: Nystop Se nd Method: E-Prescri bed Subs Allowed: subs OK Specia l Instructi on: APPLY TOPICALLY TO RASH ON FOLDS BID PRN Medic ationGene ricName: Nystop Not Available Not Available Not Available glipizide 10 mg tablet 2017 active Medicatio n ID: [id number] Du ration Value: 30 Brand Name: glipizide [...] mg tablet 2016 active Medicatio n ID: [id number] Du ration Value: 90 Brand Name: tico [...] release 24 hr active Medicatio n ID: [id number] Du ration Value: 30 Brand Name: metformin Send Method: E-Prescri bed Subs Allowed: subs OK Medica tionGener icName: metformin Not Available Not Available Not Available clotrimazo le 1 % topical cream APPLY TOPICALLY TO THE AFFECTED AREA TWICE DAILY FOR 14 DAYS active Not Available Not Available No t Available itraconazo le 100 mg capsule active Medicatio n ID: [id number] Du ration Value: 30 Brand Name: itraconaz ole Send Method: E-Prescri bed Subs Allowed: subs OK Medica tionGener icName: itraconaz ole Not Available Not Available Not Available glycopyrro late 2 mg tablet TAKE ONE TABLET BY MOUTH THREE TIMES DAILY AT 9AM, 1PM AND 5PM active Not Available Not Available No t Available naproxen 500 mg tablet 2017 active Medicatio n ID: [id number] Du ration Value: 30 Brand Name: naproxen [...] 25 mg capsule active Medicatio n ID: [id number] Du ration Value: 30 Brand Name: Lyrica Se nd Method: E-Prescri bed Subs Allowed: subs OK Medica tionGener icName: Lyrica Not Available Not Available Not Available DermOtic Oil 0.01 % ear drops Instill 2 drop twice a week as directed 2018 active Medicatio n ID: [id number] Pr escribed By Name: Srniivasa Gaytan MD Brand Name: DermOtic Oil Send Method: E-Prescri bed Subs Allowed: subs OK Medica tionGener icName: DermOtic Oil Not Available Not Available Not Available Lantus Solostar U-100 Insulin 100 unit/mL (3 mL) subcutaneo us pen active Medicatio n ID: [id number] Du ration Value: 25 Brand Name: Lantus [...] ICD10 Code Diagnosis IMO Codes Diagnosis Note [id number] EPI ESCALANTE MD [facility] [address] [address] 08/01/2024 14:56:43 08/01/2024 15:31:03 Abnormal findings on diagnostic imaging of skull and head [id number] R93.0 Chronic hoarseness 72760 36202 105 R49.0 Tobacco de pendence syndrome 61725877 F17.200 Health Concerns Section Related Observation LastModified by Organization Detai ls LastModified Time None Recorded Concern Status LastModified by Organization Details LastModified Time None Recorded Advance Directives Directive None Recorded Payers Insurance Date Sequence Insurance Name Policy Number Policy Mejia Covered Member ID Mejia Member ID Guarantor Name 02/18/2025 1 [facility] (MEDICARE REPLACEMENT/AD VANTAGE - HMO) Perla Dixon [id number] Perla Dixon 07/26/2024 1 [facility] - MEDICARE [place]VANTAGE [place] (MEDICARE REPLACEMENT/AD VANTAGE - O) Perla Dixon [id number] Perla Dixon Notes Date Note Type Note Provider Name and Address Organization Details Recorded Time 08/01/2024 text/html Patient with history of tobacco abuse and right mastoidectomy presents with abnormal findings on CT of the cervical spine. There was concerned about a calcified lesion around the cricoid cartilage. She has a greater than [id number] history of tobacco use. 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 Has had some weight loss due to depression but has no eating, drinking or swallowing difficulties other than that which was associated with recent anterior cervical spine surgery. EPI HOBBS MD [address] [place] [address], [phone], [place] - [facility] 08/01/2024 15:28:33 OBGyn Episode No OBEpisode recorded.
--- OUTSIDE RECORDS SUMMARY | 2025-04-15 12:27 | XMS_ITS | Clinical Summary ---
Author Organization [address] Address [address] [place] [address] [place] [address] Phone Care Team Providers Care Fire Watchman Name Role Phone Kyle Chavez MD Primary Care Provider [phone] Allergies Active Allergy Reactions Criticality Noted Date [...] TIMES DAILY NEEDED FOR CONSTIPATION 021 Active diclofenac (VOLTAREN) 1 % topical gel Apply 1 g topically 2 (two) times a day. 100 g 025 Active cyclobenzapri ne (FLEXERIL) 10 mg tabletIndicat ions:Cervical disc disease,Neck muscle spasm Take 1 tablet (10 mg total) by mouth 3 (three) times a day if needed for muscle spasms. 30 tablet 2 025 Active famotidine (PEPCID) 20 mg tablet [...] EVERY MORNING 180 capsule 1 025 Active nystatin (MYCOSTATIN) cream Apply topically 2 (two) times a day. 30 g 2 025 Active Additional Information Patient not taking.Reported on 03/31/2025 SUMAtriptan (IMITREX) 50 mg tablet Take 1 tablet (50 mg total) by mouth 1 (one) time if needed for migraine. MAY REPEAT DOSE 1 TIME AFTER 2 HOURS, NEEDED. MAX 2 IN 24 HOURS 9 tablet 025 Active acetaminophen (TYLENOL) 500 mg capsule Take 2 capsules (1,000 mg total) by mouth every 6 (six) hours if needed for mild pain. 90 capsule 1 025 Active lidocaine (LIDODERM) 5 % patchIndicati ons:Cervical disc disease APPLY ONE PATCH TOPICALLY ONCE DAILY FOR NO MORE THAN 12 HOURS IN ANY 24 HOUR PERIOD 30 patch 5 Active pregabalin (LYRICA) 150 mg capsuleIndica tions:Cervica l disc disease TAKE ONE CAPSULE BY MOUTH THREE TIMES DAILY 270 capsule 1 Active pregabalin (LYRICA) 150 mg capsuleIndica tions:Cervica l disc disease TAKE ONE CAPSULE BY MOUTH THREE TIMES DAILY 270 capsule 1 025 2024 Discontinued(R eorder) acetaminophen (TYLENOL) 500 mg capsule Take 2 capsules (1,000 mg total) by mouth every 6 (six) hours if needed for mild pain. 30 capsule 2 025 2024 Discontinued(R eorder) lidocaine (LIDODERM) 5 % patchIndicati ons:Cervical disc disease APPLY 1 PATCH TOPICALLY ONCE DAILY FOR NO MORE THAN 12 HOURS IN ANY 24 HOUR PERIOD 30 patch 025 2024 Discontinued pregabalin (LYRICA) 150 mg capsuleIndica tions:Cervica l disc disease Take 1 capsule (150 mg total) by mouth 3 (three) times a day. Max Daily Amount: 450 mg 270 capsule 1 025 2024 Discontinued metroNIDAZOLE (METROGEL) 0.75 % (37.5mg/5 gram) vaginal gel Insert into the vagina 1 (one) time each day for 5 days. 70 g 025 2024 Active Problems Problem Noted Date Diagnosed Date Opiate dependence 02/07/2024 Acid reflux 03/23/2020 Abnormal brain MRI 02/28/2018 Overview (02/07/2024): White matter lesions suspicious for MS and cortical atrophy. 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 Chronic back pain 02/25/2005 Overview (02/07/2024): S/p 2 lumbar fusion, 2 discectomy Resolved Problems Problem Noted Date Diagnosed Date Resolved Date History of heroin abuse 04/02/201512/2023 Overview (02/07/2024): Now on suboxone Encounters Date Type Department Care Team Description 03/31/2025 3:30 PM EST Office Visit Adult Medicine [address] [phone] Eduarda Paige, CHARGEBACK SPECIALIST Type 2 diabetes mellitus with diabetic polyneuropathy, without long-term current use of insulin ([facility] V24, [facility] V28) (Primary Dx); Major depressive disorder, remission status unspecified, unspecified whether recurrent; Cervical disc disease; Yeast infection; Subacute vaginitis; Hyperlipidemia LDL goal <100 03/28/2025 Telephone Adult Medicine [address] [phone] Kyle Chavez MD from Last 3 Months Immunizations Immunization Administration Dates Next Due Influenza Quadravalent, MDCK , 0.5ml, preservative free (Flucelvax) 6mo and older 02/27/2023 Influenza trivalent, with pr eservative (Fluzone; Afluria) 6mo and older 04/26/2020 Influenza, Unspecified 04/26/2020 Meningococcal Polysaccharide 11/16/2000 Pneumococcal conjugate 20 va lent (Prevnar 20, PCV 20) 2mo and older 11/24/2021 Medical History Medical History Date Comments History of heroin abuse ([facility] V24, [facility] V2 8) 04/02/2015 Now on suboxone Social History Tobacco Use Types Packs/Day Years Used Date Smoking Tobacco: Every Day Cigarettes Tobacco Cessation:Ready to Q uit: Not Asked; Counseling Given: Not Answered Alcohol Use Standard Drinks/Week Comments Not Currently [...] your loved ones. For example, child care center assistant director or elderly care for an older [...] Information Value Date Recorded Sex Assigned at Female 03/19/2025 9:20 AM EST Legal Sex Female 10:07 AM EST Gender Identity Not on file Sexual Orientation Not on file Last Filed Vital Signs Vital Sign Reading Time Taken Comments Blood Pressure 93/58 03/31/2025 7:45 AM EST Pulse 65 03/31/2025 7:45 AM EST Temperature 36.9 C (98.4 F) 03/31/2025 7:45 AM EST Respiratory Rate 14 03/31/2025 7:45 AM EST Oxygen Saturation 98% 10/22/2024 11:00 AM EDT Inhaled Oxygen Concentration - - Weight 61.2 kg (135 lb) 03/31/2025 7:45 AM EST Height 160 cm (5' 3 ) 10/22/2024 11:00 AM EDT Body Mass Index 23.91 10/22/2024 11:00 AM EDT Plan of Treatment Health Maintenance Due [...] of insulin ([facility] V24, [facility] V28) COMPREHENSIVE METABOLIC PANEL Routine 09/09/2024 1:47 PM EDT Type 2 diabetes mellitus with diabetic polyneuropathy, without long-term current use of insulin ([facility] V24, [facility] V28) HEMOGLOBIN A1C Routine 09/09/2024 1:47 PM EDT Type 2 diabetes mellitus with diabetic polyneuropathy, without long-term current use of insulin ([facility] V24, [facility] V28) LIPID PANEL WITH REFLEX TO DIRECT LDL Routine 09/09/2024 1:47 PM EDT Type 2 diabetes mellitus with diabetic polyneuropathy, without long-term current use of insulin ([facility] V24, [facility] V28) DIABETES FOOT EXAM Routine 11/21/2023 COLONOSCOPY Routine 04/06/2017 HEPATITIS C SCREENING Routine 05/28/2015 PAP SMEAR Routine 10/09/2013 from Last 3 Months or Most Recently Relevant to Health Maintenance Results * (ABNORMAL) Microalbumin creatinine urine ratio (09/09/2024 3:08 PM EDT) Creatinine, Urine 260.0 mg/dL LAB CHEMISTRY METHOD 09/09/2024 5:36 PM EDT [facility] Microalb, Ur 32.8(H) 0.0 - 29.0 mg/L LAB CHEMISTRY METHOD 09/09/2024 5:36 PM EDT [facility] Microalb/Crea t Ratio 13 <30 mg/g creat LAB CHEMISTRY METHOD 09/09/2024 5:36 PM EDT [facility] Urine Urine specimen obtained by clean catch procedure / Unknown Non-blood Collection / Unknown 09/09/2024 3:08 PM EDT 09/09/2024 3:08 PM EDT us Kyle Chavez MD LAB URINE ORDERABLES Final Resu lt [facility] [address] [place] [address], [place] [phone] * (ABNORMAL) Lipid panel with reflex to direct LDL (09/09/2024 1:47 PM EDT) Cholesterol 148 0 - 200 mg/dL LAB CHEMISTRY METHOD 09/09/2024 4:56 PM EDT [facility] Triglycerides 179(H) 0 - 150 mg/dL LAB CHEMISTRY METHOD 09/09/2024 4:56 PM EDT [facility] HDL 41 >=40 mg/dL LAB CHEMISTRY METHOD 09/09/2024 4:56 PM EDT [facility] LDL Calculated 71 0 - 100 mg/dL LAB CHEMISTRY METHOD 09/09/2024 4:56 PM EDT [facility] VLDL Cholesterol Damion 35.8 mg/dL LAB CHEMISTRY METHOD 09/09/2024 4:56 PM EDT [facility] Non HDL Chol. (LDL+VLDL) 107 <145 mg/dL LAB CHEMISTRY METHOD 09/09/2024 4:56 PM EDT [facility] Chol/HDL Ratio 3.6 0.0 - 4.4 LAB CHEMISTRY METHOD 09/09/2024 4:56 PM EDT [facility] Blood Venous blood specimen / Unknown Venipuncture / Unknown 09/09/2024 1:47 PM EDT 09/09/2024 1:47 PM EDT us Kyle Chavez MD LAB BLOOD ORDERABLES Final Resu lt [facility] [address] [place] [address], [place] [phone] * Hemoglobin A1c (09/09/2024 1:47 PM EDT) [facility] Hemoglobin A1C 6.1 <6.5 % LAB CHEMISTRY METHOD 09/09/2024 10:19 PM EDT [facility] Mean Bld Glu Estim. 128 mg/dL LAB CHEMISTRY METHOD 09/09/2024 10:19 PM EDT [facility] Blood Venous blood specimen / Unknown Venipuncture / Unknown 09/09/2024 1:47 PM EDT 09/09/2024 1:47 PM EDT us Kyle Chavez MD LAB BLOOD ORDERABLES Final Resu lt [facility] [address] [place] [address], * Comprehensive metabolic panel (09/09/2024 1:47 PM EDT) [facility] Sodium 138 133 - 145 mmol/L LAB CHEMISTRY METHOD 09/09/2024 4:56 PM T [facility] Potassium 3.9 3.5 - 5.5 mmol/L LAB CHEMISTRY METHOD 09/09/2024 4:56 PM EDT [facility] Chloride 102 96 - 110 mmol/L LAB CHEMISTRY METHOD 09/09/2024 4:56 PM T [facility] CO2 32 21 - 32 mmol/L LAB CHEMISTRY METHOD 09/09/2024 4:56 PM EDT [facility] Anion Gap 4 3 - 11 LAB CHEMISTRY METHOD 09/09/2024 4:56 PM EDT [facility] Glucose 87 70 - 100 mg/dL LAB CHEMISTRY METHOD 09/09/2024 4:56 PM EDT [facility] BUN 9 5 - 25 mg/dL LAB CHEMISTRY METHOD 09/09/2024 4:56 PM [facility] Creatinine 0.54 0.50 - 1.10 mg/dL LAB CHEMISTRY METHOD 09/09/2024 4:56 PM [facility] eGFR 105 >=60 mL/min/1. 73m2 LAB CHEMISTRY METHOD 09/09/2024 4:56 PM [facility] Comment:Calculation based on the Chronic Kidney Disease Epidemiology Collaboration (CKD-EPI) equation refit without adjustment for race. BUN/Creatinine Ratio 16.7 LAB CHEMISTRY METHOD 09/09/2024 4:56 PM [facility] Calcium 9.4 8.5 - 10.5 mg/dL LAB CHEMISTRY METHOD 09/09/2024 4:56 PM [facility] AST (SGOT) 23 10 - 42 unit/L LAB CHEMISTRY METHOD 09/09/2024 4:56 PM [facility] ALT (SGPT) 29 10 - 60 unit/L LAB CHEMISTRY METHOD 09/09/2024 4:56 PM [facility] Alkaline Phosphatase 63 42 - 121 unit/L LAB CHEMISTRY METHOD 09/09/2024 4:56 PM [facility] Total Protein 7.2 6.0 - 8.0 g/dL LAB CHEMISTRY METHOD 09/09/2024 4:56 PM [facility] Albumin 3.9 3.2 - 5.0 g/dL LAB CHEMISTRY METHOD 09/09/2024 4:56 PM [facility] Total Bilirubin 0.3 0.0 - 1.4 mg/dL LAB CHEMISTRY METHOD 09/09/2024 4:56 PM [facility] Blood Venous blood specimen / Unknown Venipuncture / Unknown 09/09/2024 1:47 PM EDT 09/09/2024 1:47 PM EDT us Kyle Chavez MD LAB BLOOD ORDERABLES Final Resu lt [facility] [address] [place] [address], * Diabetes Foot Exam (11/21/2023) Pathologist [facility] Diabetes: Annual Foot Exam abstracted Historical Provider HEALTH MAINTENANCE Final Result * Colonoscopy (04/06/2017) [facility] Colonoscopy no interpretation , abstracted Anatomical Region Laterality Modality Other [facility] Provider HEALTH MAINTENANCE Final Result * Hepatitis C Screening (05/28/2015) [facility] Hepatitis C Screening abstracted [facility] Provider HEALTH MAINTENANCE Final Result * Pap Smear (10/09/2013) [facility] Pap smear no interpretation , abstracted Historical Provider HEALTH MAINTENANCE Final Result from Last 3 Months or Most Recently Relevant to Health Maintenance Insurance [employer] MEDIC[employer] Member Subscriber Plan / Payer (Ef fective 2017-Present) Name:PERLA TROTTER Relation to Subscriber:Self Name:Perla Trotter Payer ID:[id number] Group ID:[id number] Type:Not on file Address: [facility] [place] [phone] Care Teams Fire Watchman Relationship Specialty Start Date End Date Kyle Chavez MD [address] [place] [id number] PCP - General Internal Medicine 06/18/24
== END 2025-04-15 10:06 | disposition home or self-care (01) ==
LOC: HO.XRAY 10:05
PROVIDERS: Visit Provider Neurological Surgery
DX: M40.30 Flatback syndrome, site unspecified (principal)
CPT/HCPCS: 72082

== ENCOUNTER → 2025-04-15 10:22 | Outpatient (BNV) | payer OTHER, SELFPAY | PROVIDERS: Visit Provider Radiology Diagnostic Radiology | DX: M43.22 Fusion of spine, cervical region (principal) | CPT/HCPCS: 72082 ==

== ENCOUNTER 2025-04-16 13:23 | Outpatient (AMB) | payer OTHER, SELFPAY ==
--- OUTSIDE RECORDS SUMMARY | 2024-08-21 06:00 | XMS_ITS ---
Author [facility] Address [address] [place] [address] Care Team Providers Care Patent Legal Assistant Name Role Phone Cheko Chavez MD Primary Care Provider Julienne Cade Unavailable [phone] Allergies Allergen (clinical drug ingredient) Drug/Non Drug [...] Active Encounters Encounter Location Date Provider Diagnosis [facility] [place] [address] [place] [address] 08/21/2024 Julienne Pop Plan Of Treatment Next Appt Details Provider Name:Julienne rock, 04/18/2025 11:00:00 AM, [address] [place] [address], [phone], Progress Notes * SERGORehanaArthurOB:1964 (60 yo F)Acc No.[id number]:08/21/2024 Progress Note Patient: Perla RICK Provider: Lary Pop DPM :1965 A ge:59 Y S ex:Female Date:08/21/2024 Address:[address] [place] [address], [facility] Pcp:Cheko Chavez MD Subjective: * Chief Complaints: [...] 08/21/2024 Generated for Lia sigala/Billy/Kelsi on: 1 06/17/2024 05:34 PM EST History and Physical Notes * HPI (History of Present Illness) Category Sub-Category Detail Notes Category Not es At Risk footcare Pt States Last PCP Visit: Date:: 03/19/20 24
--- NOTE | 2025-04-16 13:30 | HO.SPINEOV ---
Intake Visit Reasons: bone dexa & discuss possible sx/needs xray Intake Note: Ms. Dixon is here today to discuss the results of her Dexa scan and possible surgery. Allergies amoxicillin (From AUGMENTIN) Allergy (Unknown, Verified 01/24/25 13:24) N/V/D cefaclor (From CECLOR) Allergy (Unknown, Verified 01/24/25 13:24) SWELLING clavulanic acid (From AUGMENTIN) Allergy (Unknown, Verified 01/24/25 13:24) N/V/D hydrocodone (From VICODIN) Allergy (Unknown, Verified 01/24/25 13:24) N/V flurazepam (From Dalmane) Allergy (Verified 01/24/25 13:24) Itching nitrofurantoin Allergy (Verified 01/24/25 13:24) Nausea and Vomiting Assessment & Plan Assessment & Plan (1) Flat back syndrome, postprocedural: Code(s): M40.30 - Flatback syndrome, site unspecified Category: Medical Plan Dear colleague, On 04/16/2025, I saw for follow-up Perla Jay to discuss her failed back syndrome. As you know, she underwent an L1-L5 fusion in the past in another institution. Unfortunately, she was fused in his straight spine with reversal of her lumbar lordosis (flat back syndrome). 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 The deformity also causes pain. Today we discussed what needs to happen if she wants to have her lordosis restored to treat the frequent falling, thoracic kyphosis and pain. First her posterior instrumentation needs to be removed and the fusion needs to be on done at least at the levels L3-4 and L4-5. Then an anterior approach would be most beneficial to restore the lumbar lordosis at L4-5 and L5-S1. A 3rd stage would be reinsertion of posterior instrumentation ending at T10 as a final measure to restore her sagittal balance. I explained to the patient that this is a big surgery and will be done in multiple days. She will also needs to go to rehab following the procedure. I told her to only consider the surgery if the symptoms are debilitating. For now, she wants to hold off and she will return to my office if the symptoms become unbearable. I spent 30 minutes in his consult reviewing imaging and discussing plan of care. Bravo Edwards MD, PhD Spine Fellowship Trained Neurosurgeon Director, [facility] Coding Level of Care Code Est Pt Level 4 (22558) Diagnoses Flat back syndrome, postprocedural M40.30
--- OUTSIDE RECORDS SUMMARY | 2025-04-16 17:34 | XMS_ITS | Clinical Summary ---
Author Organization [employer] Address [address] [facility] 7 [place] [address] Care Team Providers Care Imagery Analyst Name Role Phone Unavailable Primary Care [...] to complete this topic Insurance [facility] ALF OPTIONS ([facility] D-SNP)
--- OUTSIDE RECORDS SUMMARY | 2025-04-16 17:34 | XMS_ITS | Encounter Summary ---
Author Organization [employer] Address [address] [facility] [address] [place] [address] Care Team Providers Care Area Field Worker Name Role Phone Unavailable Primary Care Provider Unavailabl e Encounter Details Date Type Department Care Team (Late st Contact Info) Description 03/25/2024 Orders Only [facility] [address] [place] [address] Provider, Historical, Social History Tobacco Use Types [...]
--- OUTSIDE RECORDS SUMMARY | 2025-04-16 17:35 | XMS_ITS | Patient Health Record ---
Author Organization [facility] Address [address] [place] [address] Care Team Providers Care Experimental Psychologist Name Role Phone Cheko Chavez MD Primary Care Provider Julienne Cade Unavailable [phone] Allergies Allergen (clinical drug ingredient) Drug/Non Drug [...] Problem Acquired hammer toe of right foot (5796142676150933 ) Other hammer toe(s) (acquired), right foot (M20.41) Active confirmed Problem Acquired hammer toe of left foot ([id number] ) Other hammer toe(s) (acquired), left foot (M20.42) Active confirmed Problem Acquired hammer toe of lesser toe of left foot (1974490247926142 3) Hammer toe of left foot (M20.42) Active confirmed Problem Polyneuropathy due to diabetes mellitus (74212310) Type 2 diabetes mellitus with polyneuropathy (E11.42) Active confirmed Vital Signs Blood pressure diastolic 60 mm Hg 01/10/2025 Height 5ft 3in in 01/10/2025 Blood pressure systolic 120 mm Hg 01/10/2025 Weight 137 lbs 01/10/2025 BMI 24.27 kg/m2 01/10/2025 Encounters Encounter Location Date Provider Diagnosis [address] [phone] 05/29/2024 Julienne Pop Type 2 diabetes mellitus with polyneuropathy E11.42 and Tinea unguium B35.[address] [address] 10/14/2024 Julienne Pop Type 2 diabetes mellitus with polyneuropathy E11.42 ; Other hammer toe(s) (acquired), right foot M20.41 ; Tinea unguium B35.1 and Other hammer toe(s) (acquired), left foot M20.[address] [address] 01/10/2025 Julienne Pop Type 2 diabetes mellitus with polyneuropathy E11.42 ; Other hammer toe(s) (acquired), right foot M20.41 ; Tinea unguium B35.1 and Other hammer toe(s) (acquired), left foot M20.[address] [address] 08/21/2024 Julienne Pop [address] [address] 11/18/2024 Julienne Pop [facility] [address] [address] 12/23/2024 Julienne Pop Assessments Encounter Date Diagnosis [...] Details Provider Name:Julienne rock, 04/18/2025 11:00:00 AM, [address] [place] [address], [phone], Insurance Providers Payer Name Payer Address Payer Phone Subscriber Number Group Number Insured Name Patient Relationship to Insured Coverage Start Date Coverage End Date [facility] [employer] Claims [address] [place] [id number] Perla Pelaez Self - patient is the [...]
--- OUTSIDE RECORDS SUMMARY | 2025-04-16 17:35 | XMS_ITS | Clinical Summary ---
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 Chronic back pain 02/25/2005 Overview (02/07/2024): S/p 2 lumbar fusion, 2 discectomy Resolved Problems Problem Noted Date Diagnosed Date Resolved Date History of heroin abuse 04/02/201512/2023 Overview (02/07/2024): Now on suboxone Encounters Date Type Department Care Team Description 03/31/2025 3:30 PM EST Office Visit Adult Medicine [address] [phone] Eduarda Paige, [employer] HELPER Type 2 diabetes mellitus with diabetic polyneuropathy, without long-term current use of insulin ([facility] V24, [facility] V28) (Primary Dx); Major depressive disorder, remission status unspecified, unspecified whether recurrent; Cervical disc disease; Yeast infection; Subacute vaginitis; Hyperlipidemia LDL goal <100 03/28/2025 Telephone Adult Medicine [address] [phone] Kyle Chavez MD from Last 3 Months [...] History Date Comments History of heroin abuse ([facility] V24, [facility] V2 8) 04/02/2015 Now on suboxone Social [...] for your loved ones. For example, child adolescent care or elderly care for an older adult? [...] use of insulin ([facility] V24, [facility] V28) COMPREHENSIVE METABOLIC PANEL Routine 09/09/2024 1:47 PM EDT Type 2 diabetes mellitus with diabetic polyneuropathy, without long-term current use of insulin ([facility] V24, [facility] V28) HEMOGLOBIN A1C Routine 09/09/2024 1:47 PM EDT Type 2 diabetes mellitus with diabetic polyneuropathy, without long-term current use of insulin ([facility] V24, [facility] V28) LIPID PANEL WITH REFLEX TO DIRECT LDL Routine 09/09/2024 1:47 PM EDT Type 2 diabetes mellitus with diabetic polyneuropathy, without long-term current use of insulin ([facility] V24, [facility] V28) DIABETES FOOT EXAM Routine 11/21/2023 COLONOSCOPY Routine 04/06/2017 HEPATITIS C SCREENING Routine 05/28/2015 PAP SMEAR Routine 10/09/2013 from Last 3 Months or Most Recently Relevant to Health Maintenance Results * (ABNORMAL) Microalbumin creatinine urine ratio (09/09/2024 3:08 PM EDT) Creatinine, Urine 260.0 mg/dL LAB CHEMISTRY METHOD 09/09/2024 5:36 PM EDT [facility] Microalb, Ur 32.8(H) 0.0 - 29.0 mg/L LAB CHEMISTRY METHOD 09/09/2024 5:36 PM EDT [facility] Microalb/Crea t Ratio 13 <30 mg/g creat LAB CHEMISTRY METHOD 09/09/2024 5:36 PM EDT [facility] Urine Urine specimen obtained by clean catch procedure / Unknown Non-blood Collection / Unknown 09/09/2024 3:08 PM EDT 09/09/2024 3:08 PM EDT us Kyle Chavez MD LAB URINE ORDERABLES Final Resu lt [facility] [address] [place] [address], [place] [phone] * (ABNORMAL) Lipid panel with reflex to direct LDL (09/09/2024 1:47 PM EDT) Cholesterol 148 0 - 200 mg/dL LAB CHEMISTRY METHOD 09/09/2024 4:56 PM EDT [facility] Triglycerides 179(H) 0 - 150 mg/dL LAB CHEMISTRY METHOD 09/09/2024 4:56 PM EDT [facility] HDL 41 >=40 mg/dL LAB CHEMISTRY METHOD 09/09/2024 4:56 PM EDT [facility] LDL Calculated 71 0 - 100 mg/dL LAB CHEMISTRY METHOD 09/09/2024 4:56 PM EDT [facility] VLDL Cholesterol Damion 35.8 mg/dL LAB CHEMISTRY METHOD 09/09/2024 4:56 PM EDT [facility] Non HDL Chol. (LDL+VLDL) 107 <145 mg/dL LAB CHEMISTRY METHOD 09/09/2024 4:56 PM EDT [facility] Chol/HDL Ratio 3.6 0.0 - 4.4 LAB CHEMISTRY METHOD 09/09/2024 4:56 PM EDT [facility] Blood Venous blood specimen / Unknown Venipuncture / Unknown 09/09/2024 1:47 PM EDT 09/09/2024 1:47 PM EDT us Kyle Chavez MD LAB BLOOD ORDERABLES Final Resu lt [facility] [address] [place] [address], [place] [phone] * Hemoglobin A1c (09/09/2024 1:47 PM EDT) [facility] Hemoglobin A1C 6.1 <6.5 % LAB CHEMISTRY METHOD 09/09/2024 10:19 PM EDT [facility] Mean Bld Glu Estim. 128 mg/dL LAB CHEMISTRY METHOD 09/09/2024 10:19 PM EDT [facility] Blood Venous blood specimen / Unknown Venipuncture / Unknown 09/09/2024 1:47 PM EDT 09/09/2024 1:47 PM EDT us Kyle Chavez MD LAB BLOOD ORDERABLES Final Resu lt [facility] [address] [place] [address], * Comprehensive metabolic panel (09/09/2024 1:47 PM EDT) [facility] Sodium 138 133 - 145 mmol/L LAB CHEMISTRY METHOD 09/09/2024 4:56 PM T [facility] Potassium 3.9 3.5 - 5.5 mmol/L LAB CHEMISTRY METHOD 09/09/2024 4:56 PM EDT [facility] Chloride 102 96 - 110 mmol/L LAB CHEMISTRY METHOD 09/09/2024 4:56 PM T [facility] CO2 32 21 - 32 mmol/L LAB CHEMISTRY METHOD 09/09/2024 4:56 PM EDT [facility] Anion Gap 4 3 - 11 LAB CHEMISTRY METHOD 09/09/2024 4:56 PM EDT [facility] Glucose 87 70 - 100 mg/dL LAB CHEMISTRY METHOD 09/09/2024 4:56 PM EDT [facility] BUN 9 5 - 25 [...] LAB BLOOD ORDERABLES Final Resu lt [facility] [address] [place] [address], * Diabetes Foot Exam (11/21/2023) Pathologist [facility] Diabetes: Annual Foot Exam abstracted Historical Provider HEALTH MAINTENANCE Final Result * Colonoscopy (04/06/2017) [facility] Colonoscopy no interpretation , abstracted Anatomical Region Laterality Modality Other [facility] Provider HEALTH MAINTENANCE Final Result * Hepatitis C Screening (05/28/2015) [facility] Hepatitis C Screening abstracted [facility] Provider HEALTH MAINTENANCE Final Result * Pap Smear (10/09/2013) [facility] Pap smear no interpretation , abstracted Historical Provider HEALTH MAINTENANCE Final Result from Last 3 Months or Most Recently Relevant to Health Maintenance Insurance [employer] MEDICARE Member Subscriber Plan / Payer (Ef fective 2017-Present) Name:PERLA TROTTER Relation to Subscriber:Self Name:Perla Trotter Payer ID:[id number] Group ID:[id number] Type:Not on file Address: [address] [facility] [place] [phone] Care Teams Analytics Developer Relationship Specialty Start Date End Date Kyle Chavez MD [address] [place] [phone] PCP - General Internal Medicine 06/18/24
== END 2025-04-16 14:07 | disposition home or self-care (01) ==
LOC: HO.HNS 13:24
PROVIDERS: PCP Internal Medicine; Visit Provider Neurological Surgery
DX: M40.30 Flatback syndrome, site unspecified (principal)
CPT/HCPCS: 99214

== ENCOUNTER → 2025-04-16 13:23 | Outpatient (BNVA) | payer OTHER, SELFPAY | PROVIDERS: PCP Internal Medicine; Visit Provider Neurological Surgery | DX: M40.30 Flatback syndrome, site unspecified (principal) | CPT/HCPCS: 99212 ==